=== PATIENT | female | born 1935 | race Caucasian/White ===

== ENCOUNTER → 2018-04-11 11:51 | Outpatient (CLI) | payer MEDICARE, OTHER, SELFPAY ==
[2018-02-02 09:36] VITALS: BMI 35.6
--- NOTE | 2018-04-11 11:58 | RAD_ITS ---
STUDY: X-RAY CHEST REASON FOR EXAM: Female, 82 years old. Cough TECHNIQUE: PA and lateral chest COMPARISON: None. FINDINGS: Prominent features of COPD/emphysema with generalized hyperlucency and hyperinflation, diffuse mild coarsening of the pulmonary interstitium, flattening of the hemidiaphragms and increased AP diameter of the chest. There is no evidence of acute pneumonia. At the left lung apex, there is an oval opacity measuring approximately 2.7 cm. Uncertain significance. The patient is mildly rotated and this may represent projection of normal underlying structures are summation artifact. Normal cardiomediastinal silhouette, yanni and pleural margins. No acute osseous or upper abdominal process. RAD/Chest PA and Lateral IMPRESSION: No acute cardiopulmonary process. COPD/emphysema. Oval opacity measuring 2.7 cm projecting at the left lung apex. This may represent projection of a normal supraclavicular structure due to the patient's rotation. A follow-up AP chest with careful attention to the patient's chest alignment, and proper upright midline position of the head and neck is recommended. Otherwise, a follow-up CT chest may be indicated. Electronically Signed: Jamari Pitts MD at 13:05 EST Tel , Service support ,
== END ==
PROVIDERS: Family Provider Physician Assistant; Visit Provider Physician Assistant
DX: R05 Cough (principal)
CPT/HCPCS: 71046

== ENCOUNTER → 2018-04-11 13:58 | Outpatient (CLI) | payer MEDICARE, OTHER, SELFPAY ==
[2018-04-11 12:02] VITALS: BMI 35.6
--- NOTE | 2018-04-11 14:00 | RAD_ITS ---
STUDY: X-RAY CHEST REASON FOR EXAM: Female, 82 years old. Follow-up AP lordotic view of the chest for reevaluation of the left lung apex, nodular density. TECHNIQUE: AP upright chest, lordotic angulation. COMPARISON: PA and lateral chest performed earlier today. FINDINGS: The patient is kyphotic, and scoliotic in the thoracic spine, and the lordotic projection approximates true frontal projection. Technical quality is satisfactory. The apices are no longer obscured. There is no evidence of nodular density at the left lung apex. There appears to be mild apical scarring. COPD/emphysema. RAD/Chest 1 View IMPRESSION: There is no evidence of apical lung mass. Electronically Signed: Jamari Pitts MD at 15:10 EST Tel , Service support ,
== END ==
PROVIDERS: Family Provider Physician Assistant; Visit Provider Physician Assistant
DX: R05 Cough (principal)
CPT/HCPCS: 71045; 71046

== ENCOUNTER 2018-04-12 17:24 | Inpatient (IN) | payer MEDICARE, OTHER, SELFPAY ==
[2018-04-11 12:02] VITALS: BMI 35.6
[2018-04-12] VITALS (13 sets, daily range): BP systolic 109–189; BP diastolic 68–126; PULSE 93–154; RESP 16–34; TEMP 36.8–37.3; O2SAT 91–98; BMI 27.4; BMI 28.1
--- NOTE | 2018-04-12 18:37 | EKG12_ITS ---
Test Reason : TACHYCARDIA Blood Pressure : / mmHG Vent. Rate : 145 BPM Atrial Rate : 129 BPM P-R Int : 000 ms QRS Dur : 082 ms QT Int : 308 ms P-R-T Axes : 000 037 -37 degrees QTc Int : [address] & T wave abnormality, consider inferior ischemia Abnormal ECG Confirmed by LYNNETTE LI, ROSALIO ([id number]), script editor ELSA SUNSHINE ([id number]) on 04/16/2018 10:41:32 AM Referred By: Constantin Machado Confirmed By:ROSALIO CHURCH MD
--- NOTE | 2018-04-12 18:43 | US_ITS ---
HISTORY: PT HAS A COLD, COUGH AND SOB EXAM/TECHNIQUE: US Venous Duplex LE Bilat Complete: COMPARISON: None. FINDINGS: # of images incl. paperwork: 41 Right lower extremity deep veins are patent with no evidence of DVT. Superficial thrombus is noted in the lower right thigh. Left lower extremity deep veins are patent, negative for DVT. 4.2 x 2.8 x 1.2 cm left popliteal cyst is noted. US/Venous Duplex Imag/Lenny Extrem IMPRESSION: Negative for DVT in both lower extremities. Superficial thrombus in the lower right thigh. 4.2 cm in greatest dimension left popliteal cyst. at 2114 Reported and signed by: Jeffery Gomes MD Electronically Signed: Jeffery Gomes, at 21:13 EST Tel , Service support ,
--- NOTE | 2018-04-12 18:43 | ED.RN ---
NO OLD EKGS IN MUSE
[2018-04-12] MEDS: dilTIAZem 25 MG/5 ML Vial 10 MG IV BOLUS ×2 (18:48→23:03)
--- NOTE | 2018-04-12 18:50 | RAD_ITS ---
HISTORY: COLD SYMPTOMS EXAM: XR Chest 1 View: COMPARISON: 04/11/18 CXR FINDINGS: # of images incl. paperwork: 1 LINES/DEVICES: None. LUNGS: Radiographically clear. No consolidation, edema or effusion. No pneumothorax. Emphysematous changes similar to previous. MEDIASTINUM AND CARDIOVASCULAR STRUCTURES: Cardiac silhouette not enlarged. Right paratracheal opacity similar to previous. BONES AND SOFT TISSUES: Unremarkable. RAD/Chest 1 View (Portable) IMPRESSION: COPD. No radiographic evidence of acute cardiopulmonary disease. Right paratracheal opacity similar to previous, possibly scarring or an enlarged thyroid gland but not definitively evaluated. If not previously interrogated consider nonemergent contrast-enhanced CT chest. at 1930 Reported and signed by: Jeffery Gomes MD Electronically Signed: Jeffery Gomes, at 19:29 EST Tel , Service support ,
[2018-04-12 19:04] LABS: Hematocrit 37.9 % (37-47); Hemoglobin 12.2 g/dl (12.0-15.0); Mean Corp Hgb Conc 32.2 g/gl (32-36); Mean Corpuscular Hgb 29.9 pg (27.0-32.0); Mean Corpuscular Volume 92.9 fL (81-99); Mean Platelet Vol. 9.9 fl (6.2-12.0); Platelet Count 189 K/mm3 (150-450); RBC Distribution Width CV 13.4 % (11.6-14.6); RBC Distribution Width SD 45.4 fl (35.1-43.9); Red Blood Count 4.08 M/mm3 (4.2-5.4); White Blood Count 9.1 K/mm3 (4.4-11.0)
[2018-04-12 19:05] LABS: Scan Indicated on CBC? Y/N NO
[2018-04-12] MEDS: Metoprolol Tartrate 5 MG/5 ML Vial IV (19:13)
--- NOTE | 2018-04-12 19:14 | ED.VISSUMM ---
- ER Visit Summary Date of Service: 04/12/18 Chief Complaint: Cough History of Present Illness: The patient is a 82 F presenting with cough. Patient states this is been ongoing for the past 2 days. She complains of a dry cough. She denies fever. She states she has shortness of breath but this is chronic and no worse than her baseline. She denies chest pain. She went to urgent care yesterday was started on a Z-David. Family states she has been confused and are concerned about UTI. Physical Examination: Vitals are stable. Heart rate 149. Temperature 99. Alert no acute distress. HEENT exam is unremarkable. Neck is supple. Lungs are clear and equal bilaterally. Heart is irregularly irregular Abdomen is soft nontender nondistended. Extremities are unremarkable. Skin is warm and dry. No focal neurologic deficit. Remainder of exam is unremarkable. Emergency Department Course and Treatment: EKG is A. fib with RVR rate of 145. She was given Cardizem with no improvement. She did not take her Lopressor today and was given Lopressor IV. Chest x-ray shows COPD. On reevaluation, heart rate is 110-115. CBC, chemistries unremarkable other than glucose 121, BUN 29, creatinine 1.27. Urinalysis shows 50-100 white blood cells, 3+ bacteria. Troponin is negative. Urine culture was sent. She was given Rocephin IV. Venous Doppler bilateral lower extremity is negative for DVT in both lower extremities. Superficial thrombus in the lower right thigh. 4.2 cm in greatest dimension left popliteal cyst. Discussed with the hospitalist for observation. Disposition: Observation Impression: New onset A. fib with RVR, bronchitis, UTI This note was generated with [employer] dictation software. It may contain incorrect words, spelling, and punctuation that were not noted in review of the chart prior to signing ED Disposition - Plan for ED Patient: Referrals: [facility] Doctor,Out of [Primary Care Provider] -
[2018-04-12 19:32] LABS: Anion Gap 12 (5-15); BUN 29 mg/dL (7-18); BUN/Creat Ratio 22.8 RATIO (10-20); Chloride 100 mmol/L (98-107); Creatinine, Serum 1.27 mg/dL (0.55-1.02); EST Glomerular Filtration Rate 43 mL/min (>60); Est Glom Filt Rate - Afr Amer 52 mL/min (>60); Estimated Creatinine Clearance 33.07 ml/min; Glucose 121 mg/dL (74-106); Potassium 3.6 mmol/L (3.5-5.1); Sodium Level 138 mmol/L (136-145)
--- NOTE | 2018-04-12 20:17 | HP.PCM_ITS ---
Problem List (1) New onset atrial fibrillation Status: Acute (2) Atrial fibrillation with RVR Status: Acute (3) Bronchitis Status: Acute (4) Lung nodule seen on imaging study Status: Chronic History of Present Illness Date of Admission: 04/12/18 Chief Complaint: cough The patient is a 82 year old F with a significant history of HTN; superficial venous clots of the leg for which reason patient was previously on Eliquis; and perennial allergies who presented with progressively worsening cough that started a day before her admission. She has shortness of breath that she thinks is chronic and is from her allergies. Moreover her family reported that patient had chills a day before her presentation. Patient reported that his cough is productive however she is unable to bring up the cough and she ends up swallowing the cough all the time. Outpatient patient was started on Z-David. Her family reported that with the first dose of Z-David patient vomited. She continued a Z-David on the day of admission. At the emergency department patient was found to be in A. fib with RVR for which reason she was given Cardizem bolus. Because the emergency department doctor realized that patient takes metoprolol at home, patient was also given IV push of Lopressor. Her ventricular rate was high as 154. Further, patient had abnormal urinalysis. She reports 1 week history of increased urination. Patient reports that in the past she had stress test done at [facility] after presenting with chest pain which was eventually attributed to shingles. Past Medical History Past Medical History (Chronic Problems): Chronic Problems (Last Reviewed 04/13/18 @ 01:46 by Constantin Machado MD) Lung nodule seen on imaging study (Chronic) Medical History: Medical History (Last Reviewed 04/13/18 @ 01:46 by Constantin Machado MD) Arm fracture S42.309A Basal cell carcinoma C44.91 Blood clot in vein I82.90 Fatigue R53.83 Fracture, rib S22.39XA Shortness of breath R06.02 Hypertension I10 Allergies heparin Allergy (Verified 04/12/18 17:28) Unknown Home Medications: Ambulatory Orders Medication Instructions Recorded amlodipine 5 mg tablet 5 mg PO DAILY 02/02/18 benazepril 20 mg tablet 40 mg PO DAILY 02/02/18 hydrochlorothiazide 25 mg tablet 12.5 mg PO DAILY 11/30/18 montelukast 10 mg tablet 10 mg PO QPM 02/02/18 zoledronic acid 5 mg/100 mL in 5 mg .ROUTE UD ml 02/02/18 mannitol 5 %-water intravenous piggybck Acetaminophen [Tylenol Extra 1,000 mg PO Q6H PRN PRN 04/12/18 Strength] Aspirin E.C. [Ecotrin] 81 mg PO DAILY@0800 04/12/18 Calcium Carbonate/Vitamin D3 1 tab PO BID 04/12/18 [Caltrate 600 Plus D3 Tablet] Metoprolol Tartrate [Lopressor 100 mg PO BID 04/12/18 (beta mayito)] Surgical History: tonsillectomy, - - 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 Also she had vein stripping Lives: With Family Smoking Status: Never smoker Alcohol: Occasional - *Family History Paternal Family History: Family History (Last Updated 04/13/18 @ 02:05 by Constantin Machado MD) Father Cancer Review of Systems Constitutional: Reports: Anorexia, Chills, Malaise. Denies: Fever, Weight Change HEENT: Denies: Head Aches, Sinus Congestion, Sinus Drainage Cardiovascular: Denies: Chest Pain, Palpitations Respiratory: Reports: Cough, Shortness of Breath, Sputum production Gastrointestinal: Reports: Vomiting. Denies: Abdominal Pain Genitourinary: Reports: Frequency. Denies: Dysuria Musculoskeletal: Denies: Joint Pain, Joint Tenderness Skin: Denies: Rash, Wounds Neurological: Denies: Numbness, Tingling, Focal weakness Psychiatric: Denies: Anxiety, Depression, Homicidal Ideations, Suicidal Ideations Hematologic/ Lymphatic: Denies: Easy Bruising, Easy Bleeding VTE Information - Inpt Only VTE Present on Admission: No VTE Mechan Device Prophylaxis: None VTE Pharm Prophylaxis ordered?: No Reason prophylaxis not ordered:: Treatment Not Indicated - Started on Eliquis for A. fib Patient Problems: Active and Suspected Problems (Last Reviewed 04/13/18 @ 01:46 by Constantin Machado MD) New onset atrial fibrillation (Acute) Atrial fibrillation with RVR (Acute) - Physical Exam General: Alert, Oriented x3, Cooperative HEENT: Atraumatic, PERRLA, EOMI, Normocephalic Neck: Supple, No JVD Lungs: Clear to auscultation, Normal air movement Cardiovascular: No murmurs, Irregular Rate, Tachycardic Abdomen: Bowel Sounds Present, Soft, Non Tender Extremities: No edema, Capillary Refill Less than 3 Seconds Skin: No rashes, No breakdown Musculoskeletal: No Tenderness to Palpation of Joints or Extremities Neurological: Neuro grossly intact Psych/Mental Status: Normal Affect, Appropriate Vital Signs Temp Pulse Resp BP Pulse Ox 99.1 F 154 H 20 H 140/126 H 93 04/12/18 19:00 04/12/18 19:13 04/12/18 19:00 04/12/18 19:00 04/12/18 19:00 Oxygen Flow Rate (L/min) 2 Oxygen Delivery Method Nasal Cannula Weight: 77.111 kg Body Mass Index (BMI) 27.4 Laboratory Tests Past 24 Hrs 04/12/18 04/12/18 17:55 17:55 WBC 9.1 RBC 4.08 L Hgb 12.2 Hct 37.9 MCV 92.9 MCH 29.9 MCHC 32.2 RDW 13.4 RDW Differential 45.4 H Plt Count 189 MPV 9.9 Sodium 138 Potassium 3.6 Chloride 100 Carbon Dioxide 26.0 Anion Gap 12 BUN 29 H Creatinine 1.27 H Estim Creat Clear Calc 33.07 Est GFR (MDRD) Af Amer 52 L Est GFR (MDRD) Non-Af 43 L BUN/Creatinine Ratio 22.8 H Glucose 121 H Calcium 9.0 Troponin I < 0.015 Assessment/Plan All Active Problems (Last Reviewed 04/13/18 @ 01:46 by Constantin Machado MD) New onset atrial fibrillation (Acute) Atrial fibrillation with RVR (Acute) Bronchitis (Acute) URI (upper respiratory infection) (Acute) The patient is a 82 year old F with a significant history of HTN; superficial venous clots of the leg for which reason patient was previously on Eliquis; and allergies who presented because of progressively worsening cough; and also with 1 week history of increased frequency of urination and found to be in A. fib with RVR; and with abnormal urinalysis consistent with new onset A. fib with RVR and probable cystitis as well as acute bronchitis.; A. fib with RVR Received Cardizem bolus and Lopressor IV push at emergency departments but her ventricular rate remained above 130. Will initiate another Cardizem 10 mg bolus and start her on Cardizem drip to maintain heart rate between 80-100; and to hold if systolic blood pressure is less than 100. We will obtain a TSH and magnesium level. Echocardiogram ordered. [id number] = at least 4 (positive for age more than 75; female; hypertension) Patient is allergic to heparin. We will start patient on Eliquis. Case management consult to check on eligibility of Eliquis upon discharge. Trend troponin Since there is new onset A. fib will consult cardiology to optimize management. Acute Bronchitis Because of associated reported chills we will continue patient on azithromycin. Also patient received ceftriaxone at emergency department. We will continue ceftriaxone for UTI and is to help with her bronchitis. Will obtain a respiratory pathogen panel. Acute cystitis Her urinalysis was positive for increased protein; ketones; occult blood; nitrite; leukocyte esterase; and bacteria. However she had squamous epithelial cells. She reports increased frequency of urination. Patient received ceftriaxone at emergency department. Ceftriaxone continued. Hypertension On presentation her blood pressure was severely uncontrolled. Hydrochlorothiazide; metoprolol and amlodipine continued Cardizem drip A. fib which should also help with blood pressure control Trend blood pressures and adjust blood pressure medication. Probable CKD stage III. Elevated creatinine of 1.27 on admission. No old records to compare with. With her age this could be CKD. Trend BMP. Perennial Allergies: Singulair continued. DVT prophylaxis: Not indicated as patient has been started on Eliquis. Code Visit OBSV E&M: 27240 Initial observation care L3
[2018-04-12 20:21] LABS: Mucous, Urine 0 SEEN /hpf (<or=2+)
[2018-04-12 20:44] LABS: Color, Urine Yellow (Yellow); Glucose, Dipstick Normal (Normal); Ketone-Dipstick 50 mg/dl (Negative); Leukocyte Esterase-Dipstick 500 /ul (Negative); Nitrite-Dipstick Positive (Negative); Occult Blood-Urine 150 /ul (Negative); Protein-Dipstick 30 mg/dl (Negative); Urine Bilirubin Dipstick Negative (Negative); Urine Clarity Cloudy (Clear); Urine Urobilinogen Normal (Normal)
[2018-04-12 20:48] LABS: Hyaline Cast 0-5 SEEN /lpf (0-5)
[2018-04-12 20:50] LABS: Bacteria 3+ /hpf (None Seen); Squamous Epithelial Cells - UA 5-10 SEEN /hpf (5-10); Transitional Epithelial - Ur 0-5 SEEN /hpf (0-5); White Blood Cells 50-100 SEEN /hpf (0-5)
[2018-04-12 20:53] LABS: Red Blood Cells-Urine 0-5 SEEN /hpf (0-5)
[2018-04-12] MEDS: Ceftriaxone 1 GM/50 ML BAG IV (22:03)
--- NOTE | 2018-04-12 22:23 | ECHOD_ITS ---
Reason For Study: Afib, Aflutter Procedure This was a 2D Doppler, Color Flow transthoracic echocardiogram. Exam performed portable in patient room. Left Ventricle Normal LV size. Left ventricular systolic function is normal. The estimated ejection fraction is 55 %. No regional wall motion abnormalities noted. Right Ventricle Normal RV size. Normal systolic function. Atria Normal left atrium. Normal right atrium. Mitral Valve Normal mitral valve. Tricuspid Valve Normal tricuspid valve. Mild (1+) tricuspid valve insufficiency. Pulmonary artery systolic pressure is 38 mmHg. Aortic Valve Normal aortic valve. Pulmonic Valve The pulmonic valve is not well visualized. Great Vessels Normal aortic root. The pulmonary artery is normal size. Normal inferior vena cava. Pericardium/Pleural No pericardial effusion. MMode/2D Measurements & Calculations LVIDd: 4.1 cm IVSd: 1.00 cm Ao root diam: 3.3 cm LVIDs: 2.5 cm LVPWd: 0.84 cm FS: 39.8 % LAV(MOD-bp): 26.7 ml LVAd ap4: 19.5 cm2 SV(MOD-sp4): 33.7 ml LAV(MOD-bp) Indexed: 14.3 ml/m2 EDV(MOD-sp4): 44.0 ml LAV(MOD-sp2): 26.9 ml EDV(sp4-el): 46.0 ml LAV(MOD-sp4): 24.2 ml LVAs ap4: 7.4 cm2 ESV(MOD-sp4): 10.2 ml ESV(sp4-el): 9.5 ml EF(MOD-sp4): 76.7 % EF(sp4-el): 79.3 % SV(sp4-el): 36.5 ml LA A4 area: 10.7 cm2 LA dimension(2D): 3.4 cm RA A4 area: 10.9 cm2 Doppler Measurements & Calculations MV E max cecile: 104.9 cm/sec MV V2 max: 168.4 cm/sec Ao V2 max: 140.3 cm/sec MV max P.4 mmHg Ao max P.9 mmHg MV V2 mean: 87.1 cm/sec Ao V2 mean: 111.1 cm/sec MV mean P.9 mmHg Ao mean P.3 mmHg MV V2 VTI: 33.3 cm Ao V2 VTI: 29.5 cm LV V1 max: 120.8 cm/sec PA V2 max: 102.4 cm/sec TR max cecile: 291.9 cm/sec LV V1 max P.8 mmHg TR max P.1 mmHg Interpretation Summary Mild (1+) tricuspid valve insufficiency. Pulmonary artery systolic pressure is 38 mmHg. Normal LV size. Left ventricular systolic function is normal. The estimated ejection fraction is 55 %. Ordering Physician: Constantin Machado Referring Physician: Out of Town Doctor Performed By: Laverne Simpson, KIMBERLI, RVT
[2018-04-12] MEDS: APIXABAN 5 MG TABLET PO (23:03)
[2018-04-12 23:15] LABS: Magnesium 1.8 mg/dL (1.6-2.6); Thyroid Stim Hormone (TSH) 1.62 uIU/mL (0.358-3.74)
[2018-04-12] MEDS: 0.9% NaCl Peripheral Flush Adult/Peds IV (23:20)
--- NOTE | 2018-04-12 23:53 | NURSING ---
No A-Fib zone sheets available to give to patient. superannuation clerk aware
[2018-04-13] VITALS (35 sets, daily range): BP systolic 100–129; BP diastolic 45–99; PULSE 61–128; RESP 16–34; TEMP 36.4–36.9; O2SAT 88–97
[2018-04-13 05:04] LABS: Anion Gap 12 (5-15); BUN 25 mg/dL (7-18); BUN/Creat Ratio 22.7 RATIO (10-20); Calcium,Total 8.2 mg/dL (8.5-10.1); Chloride 102 mmol/L (98-107); EST Glomerular Filtration Rate 51 mL/min (>60); Est Glom Filt Rate - Afr Amer 61 mL/min (>60); Estimated Creatinine Clearance 38.19 ml/min; Glucose 102 mg/dL (74-106); Potassium 3.5 mmol/L (3.5-5.1); Sodium Level 139 mmol/L (136-145)
--- NOTE | 2018-04-13 08:25 | PCM.PROGNOTE ---
Patient Problems: Active and Suspected Problems (Last Reviewed 04/13/18 @ 01:46 by Constantin Machado MD) New onset atrial fibrillation (Acute) Atrial fibrillation with RVR (Acute) Subjective: Chief complaint: Follow-up after admission for new onset A. fib with RVR, acute bronchitis probably viral as well as acute cystitis. Patient seen and examined. No acute events overnight. She is still complaining of cough with minimal sputum. Breathing is getting better. Denies chest pain or palpitation. Denies fever or chills. Later this morning, patient converted back to sinus rhythm, heart rate has been in the 60s. Pulse ox is 95% on 3 L. - Physical Exam General: Alert, Oriented x3, Cooperative, - - Minimally short of breath. HEENT: Atraumatic, PERRLA, EOMI, Normocephalic Oral: Moist Mucosa, No Gingival or Mucosal Lesions/ Ulcerations Neck: Supple, No JVD, Negative Carotid Bruits, Trachea Midline, Thyroid Normal Size and Texture Lungs: No wheeze, No rales, Diminished, Rhonchi, Short of Breath Cardiovascular: Normal S1, Normal S2, No murmurs, PMI Normal, Irregular Rate, Tachycardic Abdomen: Bowel Sounds Present, Soft, Non Tender, Non-Distended Extremities: No clubbing, No cyanosis, No edema Skin: No rashes, No breakdown Lymphatic: No Cervical, Supraclavicular, or Inguinal Adenopathy Neurological: Cranial nerves II-XII grossly intact, Motor Exam 5/5 strength throughout Psych/Mental Status: Normal Affect, Appropriate, Alert and oriented to time, place, person, mood and affect Vital Signs Temp Pulse Resp BP Pulse Ox 98.1 F 104 H 26 H 109/79 94 04/13/18 08:00 04/13/18 08:00 04/13/18 08:00 04/13/18 08:00 04/13/18 08:00 Oxygen Flow Rate (L/min) 3 Oxygen Delivery Method Nasal Cannula Weight: 174 lb 6.17 oz Body Mass Index (BMI) 28.1 Intake and Output for Last 24 Hours 04/11/18 04/12/18 04/13/18 23:59 23:59 23:59 Intake Total 768.9 / 768.9 Balance 768.9 / 768.9 Laboratory Tests Past 24 Hrs 04/12/18 04/12/18 04/12/18 17:55 17:55 20:05 WBC 9.1 RBC 4.08 L Hgb 12.2 Hct 37.9 MCV 92.9 MCH 29.9 MCHC 32.2 RDW 13.4 RDW Differential 45.4 H Plt Count 189 MPV 9.9 Sodium 138 Potassium 3.6 Chloride 100 Carbon Dioxide 26.0 Anion Gap 12 BUN 29 H Creatinine 1.27 H Estim Creat Clear Calc 33.07 Est GFR (MDRD) Af Amer 52 L Est GFR (MDRD) Non-Af 43 L BUN/Creatinine Ratio 22.8 H Glucose 121 H Calcium 9.0 Magnesium Troponin I < 0.015 TSH Urine Color Yellow Urine Clarity Cloudy Urine pH 5.0 Ur Specific [place] 1.020 Urine Protein 30 H Urine Glucose (UA) Normal Urine Ketones 50 H Urine Occult Blood 150 H Urine Nitrite Positive H Urine Bilirubin Negative Urine Urobilinogen Normal Ur Leukocyte Esterase 500 H Urine RBC 0-5 SEEN Urine WBC 50-100 SEEN Ur Squamous Epith Cells 5-10 SEEN Ur Transition Epith Cell 0-5 SEEN Urine Bacteria 3+ Hyaline Casts 0-5 SEEN Urine Mucus 0 SEEN 04/12/18 04/13/18 04/13/18 22:34 01:10 04:34 WBC RBC Hgb Hct MCV MCH MCHC RDW RDW Differential Plt Count MPV Sodium 139 Potassium 3.5 Chloride 102 Carbon Dioxide 25.0 Anion Gap 12 BUN 25 H Creatinine 1.10 H Estim Creat Clear Calc 38.19 Est GFR (MDRD) Af Amer 61 Est GFR (MDRD) Non-Af 51 L BUN/Creatinine Ratio 22.7 H Glucose 102 Calcium 8.2 L Magnesium 1.8 Troponin I < 0.015 < 0.015 < 0.015 TSH 1.62 Urine Color Urine Clarity Urine pH Ur Specific [place] Urine Protein Urine Glucose (UA) Urine Ketones Urine Occult Blood Urine Nitrite Urine Bilirubin Urine Urobilinogen Ur Leukocyte Esterase Urine RBC Urine WBC Ur Squamous Epith Cells Ur Transition Epith Cell Urine Bacteria Hyaline Casts Urine Mucus Medical Necessity - Tobacco Use Smoking Status: Never smoker Assessment/Plan All Active Problems (Last Reviewed 04/13/18 @ 01:46 by Constantin Machado MD) New onset atrial fibrillation (Acute) Atrial fibrillation with RVR (Acute) Bronchitis (Acute) URI (upper respiratory infection) (Acute) This is an 82 years old female patient presented to the emergency room because of cough and shortness of breath and she was found to have new onset A. fib with RVR, acute bronchitis as well as acute cystitis. #1 new onset A. fib with RVR: Patient was on IV Cardizem drip. Later this morning, she converted back to sinus rhythm, heart rate has been in the 60s. Blood pressure stable. Serum alk phos are normal. TSH was normal. Troponin was negative. 2D echocardiogram revealed ejection fraction of 55%, normal LV size, pulmonary artery pressure is 38. She is on metoprolol for rate control, IV Cardizem drip discontinued. She is on Eliquis for anticoagulation. Plan to continue same treatment. #2 acute bronchitis: Chest x-ray reviewed, no acute infiltrate. At this time, pneumonia is unlikely. She is on empiric Zithromax and Rocephin. Respiratory panel for viruses negative. Plan to continue albuterol every 4 hours, incentive spirometer, continue empiric Zithromax and Rocephin, wean off oxygen as tolerated. #3 acute cystitis: She is on IV Rocephin, urine culture is pending. She has been afebrile, no leukocytosis. #4 hypertension: Blood pressure stable, continue Norvasc, HCTZ, lisinopril and metoprolol. #5 probable stage III chronic kidney disease: Unknown baseline kidney function. Admission creatinine was 1.27, GFR was 43, today's creatinine is down to 1.10 and GFR is 51 improved. #6 DVT prophylaxis: Continue Eliquis. This note was generated with [employer] dictation software. It may contain incorrect words, spelling, and punctuation that were not noted in checking the note before signing. Code Visit Inpatient E&M: 27272 Subs Hosp L2
[2018-04-13] MEDS: APIXABAN 5 MG TABLET PO ×2 (08:32→21:07)
[2018-04-13] MEDS: hydroCHLOROthiazide 12.5mg 12.5 MG PO (08:32)
[2018-04-13] MEDS: Calcium Carb/Vitamin D 1 TABLET Tablet PO (08:32)
[2018-04-13] MEDS: Metoprolol Tartrate 100 MG Tablet PO ×2 (08:32→21:07)
[2018-04-13] MEDS: Azithromycin 250 MG Tablet 500 MG PO (08:32)
[2018-04-13] MEDS: Aspirin E.C. 81 MG Tablet PO (08:32)
[2018-04-13] MEDS: amLODIPine 5 MG Tablet PO (08:33)
[2018-04-13] MEDS: Lisinopril 40 MG Tablet PO (08:33)
[2018-04-13] MEDS: Albuterol 2.5 MG/3 ML VIAL.NEB. INHALATION ×3 (10:19→18:56)
--- NOTE | 2018-04-13 13:11 | CASEMGMT ---
LYN GUEVARA assessment: Face to Face with patient for initial transition planning/care coordination assessment. LYN GUEVARA introduced self and role at [facility], pt voices understanding and consents to assessment at this time. Pt is sitting up in chair in no distress at this time. Pt is A/Ox4 at this time and answers all questions appropriately at this time. Care providers, pharmacy, and demographics verified at this time. PCP: Lukasz Giron Specialists: Pt states currently has no specialists. Preferred Pharmacy: [facility] Insurance: [facility] A/B, AARP Prescription Benefit: AARP Living Will/HPOA: Pt states that she does have LW/HPOA but she is aware that they are not on file at [facility] at this time. Pt states that her son, Javier Sanabria, is HPOA. LNOK: Javier Sanabria, son Living Arrangements: Pt states she is currently living with her son for the winter in a 1 story home and states no concerns at home at this time. Pt states she is independent with ADL's at this time. Transportation: Pt states that she drives self and states no transportation concerns at this time. DME/HHC: Pt states that she has no current DME or need for any at this time. Pt states no hx of HHC or SNF in the past. Pt states no concerns with going home with son at time of discharge. Pt is retired. Pt states does not smoke but does drink occasionally, socially. Pt states no further concerns/needs at this time. CM to follow for any further discharge planning/needs. Advised pt to ask for CM if any further questions/concerns/needs arise, voices understanding. Plan: [place] LYN GUEVARA
[2018-04-13] MEDS: Montelukast 10 MG Tablet PO (21:07)
[2018-04-13] MEDS: Ceftriaxone 1 GM/50 ML BAG IV (21:28)
[2018-04-13] MEDS: 0.9% NaCl Peripheral Flush Adult/Peds IV (21:32)
[2018-04-14] VITALS (38 sets, daily range): BP systolic 96–128; BP diastolic 57–81; PULSE 68–120; RESP 16–34; TEMP 36.6–36.9; O2SAT 90–96
--- NOTE | 2018-04-14 05:59 | EKG12_ITS ---
Test Reason : A-FIB Blood Pressure : / mmHG Vent. Rate : 105 BPM Atrial Rate : 159 BPM P-R Int : 000 ms QRS Dur : 082 ms QT Int : 342 ms P-R-T Axes : 000 011 -25 degrees QTc Int : 452 ms Atrial fibrillation with rapid ventricular response Nonspecific T wave abnormality Abnormal ECG Confirmed by LYNNETTE LI, ROSALIO ([id number]), news videotape editor ELSA SUNSHINE ([id number]) on 04/19/2018 9:15:52 AM Referred By: Constantin Machado Confirmed By:ROSALIO CHURCH MD
[2018-04-14] MEDS: 0.9% NaCl Peripheral Flush Adult/Peds IV ×3 (06:38→18:44)
[2018-04-14] MEDS: Metoprolol Tartrate 5 MG/5 ML Vial IV (06:38)
[2018-04-14] MEDS: Albuterol 2.5 MG/3 ML VIAL.NEB. INHALATION ×5 (07:18→23:23)
--- NOTE | 2018-04-14 08:18 | PN_ITS ---
Patient Problems: Active and Suspected Problems (Last Reviewed 04/13/18 @ 01:46 by Constantin Machado MD) New onset atrial fibrillation (Acute) Atrial fibrillation with RVR (Acute) Subjective: Chief complaint: Follow-up after admission for new onset A. fib with RVR, acute bronchitis probably viral as well as acute cystitis. Patient seen and examined. No acute events overnight. Patient is feeling better, breathing is getting better, still having a dry cough. Denies chest pain or palpitation, denies dizziness or lightheadedness. Yesterday, she converted back to sinus rhythm but overnight, she returned back to A. fib with RVR. At this time, she has been afebrile, heart rate has been around 110, blood pressure stable, pulse ox is 93% on room air. - Physical Exam General: Alert, Oriented x3, Cooperative, No apparent distress HEENT: Atraumatic, PERRLA, EOMI, Normocephalic Oral: Moist Mucosa, No Gingival or Mucosal Lesions/ Ulcerations Neck: Supple, No JVD, Negative Carotid Bruits, Trachea Midline, Thyroid Normal Size and Texture Lungs: No wheeze, No rales, Diminished, Rhonchi Cardiovascular: Normal S1, Normal S2, No murmurs, PMI Normal, Irregular Rate, Tachycardic Abdomen: Bowel Sounds Present, Soft, Non Tender, Non-Distended, No Hepato- splenomegaly Extremities: No clubbing, No cyanosis, No edema Skin: No rashes, No breakdown Lymphatic: No Cervical, Supraclavicular, or Inguinal Adenopathy Neurological: Cranial nerves II-XII grossly intact, Neuro grossly intact Psych/Mental Status: Normal Affect, Appropriate, Alert and oriented to time, place, person, mood and affect Vital Signs Temp Pulse Resp BP Pulse Ox 98.3 F 111 H 18 128/72 H 93 04/14/18 03:00 04/14/18 06:38 04/14/18 03:00 04/14/18 06:38 04/14/18 03:00 Oxygen Flow Rate (L/min) 3 Oxygen Delivery Method Room Air Weight: 174 lb 2.643 oz Body Mass Index (BMI) 28.1 Intake and Output for Last 24 Hours 04/12/18 04/13/18 04/14/18 23:59 23:59 23:59 Intake Total 120 / 120 Balance 120 / 120 Microbiology Past 72 Hours 04/12/18 20:05 Urine Culture - Preliminary Urine, Clean Catch Gram negative david 04/13/18 05:30 Respiratory Panel (PCR) - Final Mucosa - Nasopharyngeal Medical Necessity - Tobacco Use Smoking Status: Never smoker Assessment/Plan All Active Problems (Last Reviewed 04/13/18 @ 01:46 by Constantin Machado MD) New onset atrial fibrillation (Acute) Atrial fibrillation with RVR (Acute) Bronchitis (Acute) URI (upper respiratory infection) (Acute) This is an 82 years old female patient presented to the emergency room because of cough and shortness of breath and she was found to have new onset A. fib with RVR, acute bronchitis as well as acute cystitis. #1 new onset A. fib with RVR: Returning back to sinus rhythm yesterday afternoon, IV Cardizem drip discontinued yesterday but today, she is back into A. fib with RVR. Other vital signs are stable, afebrile. Serum electrolytes are within normal limits. TSH was normal. Troponin was negative. 2D echocardiogram revealed ejection fraction of 55%, normal LV size, pulmonary artery pressure is 38. She is on metoprolol for rate control and on Eliquis for anticoagulation. Plan: Restart IV Cardizem drip, cardiology consult. #2 acute bronchitis: She is on empiric Zithromax and Rocephin. Symptoms improved, pulse ox is maintained on room air. Respiratory panel for viruses negative. continue albuterol every 4 hours, incentive spirometer, continue empiric Zithromax and Rocephin, wean off oxygen as tolerated. #3 acute cystitis: She is on IV Rocephin, urine culture revealed gram-negative rods, final is pending. She has been afebrile, no leukocytosis. #4 hypertension: Blood pressure stable, continue Norvasc, HCTZ, lisinopril and metoprolol. #5 probable stage III chronic kidney disease: Unknown baseline kidney function. Admission creatinine was 1.27, GFR was 43, yesterday's creatinine is down to 1.10 and GFR is 51, improved. #6 DVT prophylaxis: Continue Eliquis. This note was generated with [employer] software. It may contain incorrect words, spelling, and punctuation that were not noted in checking the note before signing. Code Visit Inpatient E&M: 88586 Subs Hosp L2
[2018-04-14] MEDS: Calcium Carb/Vitamin D 1 TABLET Tablet PO (09:29)
[2018-04-14] MEDS: APIXABAN 5 MG TABLET PO ×2 (09:29→21:09)
[2018-04-14] MEDS: hydroCHLOROthiazide 12.5mg 12.5 MG PO (09:29)
[2018-04-14] MEDS: Aspirin E.C. 81 MG Tablet PO (09:29)
[2018-04-14] MEDS: Metoprolol Tartrate 100 MG Tablet PO ×2 (09:29→21:09)
[2018-04-14] MEDS: amLODIPine 5 MG Tablet PO (09:29)
[2018-04-14] MEDS: Azithromycin 250 MG Tablet 500 MG PO (09:30)
--- NOTE | 2018-04-14 09:52 | CASEMGMT ---
SW spoke w/pt about LW/POA, pt states has the forms, they are on file at [facility] as pt normally goes there. Pt states she thinks her son has copies. SW asked pt if she is here again to bring them in and we can put them on file. Pt states understanding. YANIRA Cortes, [employer]
--- NOTE | 2018-04-14 11:38 | PCM.CONS.C ---
Reason for Consult Date of Consultation: 04/14/18 History of Present Illness: The patient is a 82 year old F with past medical history significant for hypertension. She has been admitted to the hospital with acute bronchitis and cystitis. She was also noted to have atrial fibrillation with rapid ventricular response on admission. She was treated with a diltiazem infusion and he subsequently converted spontaneously. However the atrial fibrillation recurred this morning. We have been asked for evaluation and management. Patient denies any previous cardiac history. Denies any history of palpitations. No chest pains or shortness of breath either at rest or with exertion. No orthopnea proximal nocturnal dyspnea. Denies any ankle edema. No history of syncope or presyncope. Denies any history of CVA or TIA. Patient denies any history of bleeding disorders. 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 She did not have any issues with the anticoagulation. [] Past Medical History Allergies/Adverse Reactions: Allergies heparin Allergy (Verified 04/12/18 22:43) Rash Home Medications: Ambulatory Orders Medication Instructions Recorded amlodipine 5 mg tablet 5 mg PO DAILY 02/02/18 benazepril 20 mg tablet 40 mg PO DAILY 02/02/18 hydrochlorothiazide 25 mg tablet 12.5 mg PO DAILY 02/02/18 montelukast 10 mg tablet 10 mg PO QPM 02/02/18 zoledronic acid 5 mg/100 mL in 5 mg .ROUTE UD ml 02/02/18 mannitol 5 %-water intravenous piggybck Acetaminophen [Tylenol Extra 1,000 mg PO Q6H PRN PRN 04/12/18 Strength] Aspirin E.C. 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 Also she had vein stripping - *Family History Paternal Family History: Family History (Last Updated 04/13/18 @ 02:05 by Constantin Machado MD) Father Cancer Lives: With Family Smoking Status: Never smoker Alcohol: Occasional Review of Systems - Review of Systems HEENT: Denies: Head Aches Cardiovascular: Denies: Chest Discomfort, Chest Discomfort with Exertion, Shortness of Breath at Rest, Shortness of Breath with Exertion, Orthopnea, PND, Peripheral Edema, Palpitations, Lightheadedness, Dizziness, Near Syncope, Syncope Gastrointestinal: Denies: Abdominal Discomfort, Jaundice, Nausea, Hematemesis, Melena Neurological: Denies: History of TIA, History of CVA Psychiatric: Denies: Anxiety, Depression Endocrine: Denies: Heat Intolerance, Cold Intolerance Hematologic/ Lymphatic: Denies: Easy Brusing, Easy Bleeding Subjectve: Comfortable. No apparent distress. Objective: Vital Signs Temp Pulse Resp BP Pulse Ox 98.2 F 100 20 H 112/66 92 04/14/18 11:17 04/14/18 11:17 04/14/18 11:17 04/14/18 11:17 04/14/18 11:17 Oxygen Flow Rate (L/min) 3 Oxygen Delivery Method Room Air Weight: 79 kg Body Mass Index (BMI) 28.1 Intake and Output for Last 24 Hours 04/12/18 04/13/18 04/14/18 23:59 23:59 23:59 Intake Total 120 / 120 Balance 120 / 120 General: Healthy Appearing, Awake, Alert, Oriented x 3, No Acute Distress Neck: Supple, No JVD Lungs: Clear to auscultation Cardiovascular: Normal S1, Normal S2 Abdomen: Bowel Sounds Present, Soft Extremities: No edema Neurological: No Focal Motor or Sensory Deficit Psych/Mental Status: Appropriate Rhythm: Atrial fibrillation with rapid ventricular response EKG: Atrial fibrillation. ECHO: Normal LV systolic function. Stress Test: Cardiac Cath: PCI: CT Surgery: Holter monitor: EPS: PPM: CXR: Chest CT Scan: Assessment/Plan 1. New onset atrial fibrillation. Patient has a high CHAD1-Vasc score. Agree with anticoagulation. Discussed with patient. Risks benefits explained. She understands these and agrees with the plan. Continue diltiazem for rate control. Switch to p.o. when rate control is achieved. Stop amlodipine 2. Bronchitis. 3. Cystitis. 4. Hypertension. Stop amlodipine. Patient is started on diltiazem.
[2018-04-14] MEDS: Lisinopril 40 MG Tablet PO (12:04)
[2018-04-14] MEDS: Ceftriaxone 1 GM/50 ML BAG IV (21:09)
[2018-04-14] MEDS: Montelukast 10 MG Tablet PO (21:09)
[2018-04-15] VITALS (33 sets, daily range): BP systolic 92–131; BP diastolic 55–94; PULSE 65–119; RESP 16–31; TEMP 36.3–36.9; O2SAT 92–99
[2018-04-15] MEDS: Albuterol 2.5 MG/3 ML VIAL.NEB. INHALATION ×5 (02:59→20:00)
[2018-04-15 06:09] LABS: Absolute Neutrophil Count 4.1 X10^3/uL (2.0-7.7); Basophil# 0.02 X10^3/uL; Basophil% 0.3 % (0-1); Eosinophils% 1.5 % (0-5); Hematocrit 35.9 % (37-47); Hemoglobin 11.6 g/dl (12.0-15.0); Lymphocyte % 24.5 % (19-41); Mean Corp Hgb Conc 32.3 g/gl (32-36); Mean Corpuscular Hgb 29.9 pg (27.0-32.0); Mean Corpuscular Volume 92.5 fL (81-99); Mean Platelet Vol. 10.3 fl (6.2-12.0); Monocyte# 0.75 X10^3/uL; Monocyte% 11.5 % (0-10); Neutrophil # 4.05 X10^3/uL (2.7-7.7); Neutrophil % 61.9 % (47-70); Platelet Count 223 K/mm3 (150-450); RBC Distribution Width CV 13.1 % (11.6-14.6); RBC Distribution Width SD 43.3 fl (35.1-43.9); Red Blood Count 3.88 M/mm3 (4.2-5.4); White Blood Count 6.5 K/mm3 (4.4-11.0)
[2018-04-15 06:23] LABS: Anion Gap 11 (5-15); BUN 45 mg/dL (7-18); BUN/Creat Ratio 33.8 RATIO (10-20); Calcium,Total 9.2 mg/dL (8.5-10.1); Chloride 103 mmol/L (98-107); Creatinine, Serum 1.33 mg/dL (0.55-1.02); EST Glomerular Filtration Rate 41 mL/min (>60); Est Glom Filt Rate - Afr Amer 49 mL/min (>60); Estimated Creatinine Clearance 31.58 ml/min; Glucose 116 mg/dL (74-106); POSITIVE COUNT NO; POSITIVE DIFFERENTIAL NO; POSITIVE MORPHOLOGY NO; Potassium 3.4 mmol/L (3.5-5.1); Sodium Level 140 mmol/L (136-145)
[2018-04-15] MEDS: Aspirin E.C. 81 MG Tablet PO (08:18)
[2018-04-15] MEDS: hydroCHLOROthiazide 12.5mg 12.5 MG PO (08:19)
[2018-04-15] MEDS: APIXABAN 5 MG TABLET PO ×2 (08:19→21:01)
[2018-04-15] MEDS: Metoprolol Tartrate 100 MG Tablet PO ×2 (08:20→21:01)
[2018-04-15] MEDS: Azithromycin 250 MG Tablet 500 MG PO (08:20)
[2018-04-15] MEDS: Calcium Carb/Vitamin D 1 TABLET Tablet PO (08:20)
--- NOTE | 2018-04-15 08:41 | PCM.PROGNOTE ---
Patient Problems: Active and Suspected Problems (Last Reviewed 04/13/18 @ 01:46 by Constantin Machado MD) New onset atrial fibrillation (Acute) Atrial fibrillation with RVR (Acute) Subjective: Chief complaint: Follow-up after admission for new onset A. fib with RVR, acute bronchitis probably viral as well as acute cystitis. Patient seen and examined. No acute events overnight. She is feeling better, having less cough. Denied chest pain, shortness of breath or palpitation. She remains in A. fib, heart rate has been around 100 and she remains on IV Cardizem drip. Her other vital signs are stable. - Physical Exam General: Alert, Oriented x3, Cooperative, No apparent distress HEENT: Atraumatic, PERRLA, EOMI, Normocephalic Oral: Moist Mucosa, No Gingival or Mucosal Lesions/ Ulcerations Neck: Supple, No JVD, Negative Carotid Bruits, Trachea Midline, Thyroid Normal Size and Texture Lungs: Clear to auscultation, No rhonchi, No wheeze, No rales, Diminished Cardiovascular: Normal S1, Normal S2, No murmurs, PMI Normal, Irregular Rate, Tachycardic Abdomen: Bowel Sounds Present, Soft, Non Tender, Non-Distended, No Hepato-splenomegaly Extremities: No clubbing, No cyanosis, No edema Skin: No rashes, No breakdown Lymphatic: No Cervical, Supraclavicular, or Inguinal Adenopathy Neurological: Cranial nerves II-XII grossly intact, Neuro grossly intact Psych/Mental Status: Normal Affect, Appropriate, Alert and oriented to time, place, person, mood and affect Vital Signs Temp Pulse Resp BP Pulse Ox 97.9 F 85 16 131/94 H 95 04/15/18 08:00 04/15/18 08:20 04/15/18 08:00 04/15/18 08:00 04/15/18 08:00 Oxygen Flow Rate (L/min) 2 Oxygen Delivery Method Room Air Weight: 174 lb 2.643 oz Body Mass Index (BMI) 28.1 Intake and Output for Last 24 Hours 04/13/18 04/14/18 04/15/18 23:59 23:59 23:59 Intake Total 839.0 / 839.0 543.7 / 543.7 Balance 1976.3 / 1976.3 839.0 / 839.0 543.7 / 543.7 Microbiology Past 72 Hours 04/12/18 20:05 Urine Culture - Final Urine, Clean Catch Escherichia coli 04/13/18 05:30 Respiratory Panel (PCR) - Final Mucosa - Nasopharyngeal Laboratory Tests Past 24 Hrs 04/15/18 04/15/18 05:20 05:20 WBC 6.5 RBC 3.88 L Hgb 11.6 L Hct 35.9 L MCV 92.5 MCH 29.9 MCHC 32.3 RDW 13.1 RDW Differential 43.3 Plt Count 223 MPV 10.3 Immature Gran % (Auto) 0.300 Neut % (Auto) 61.9 Lymph % (Auto) 24.5 [place] % (Auto) 11.5 H Eos % (Auto) 1.5 Baso % (Auto) 0.3 Absolute Neuts (auto) 4.1 Absolute Lymphs (auto) 1.60 Total Counted Not Reportable Sodium 140 Potassium 3.4 L Chloride 103 Carbon Dioxide 26.0 Anion Gap 11 BUN 45 H Creatinine 1.33 H Estim Creat Clear Calc 31.58 Est GFR (MDRD) Af Amer 49 L Est GFR (MDRD) Non-Af 41 L BUN/Creatinine Ratio 33.8 H Glucose 116 H Calcium 9.2 Medical Necessity - Tobacco Use Smoking Status: Never smoker Assessment/Plan All Active Problems (Last Reviewed 04/13/18 @ 01:46 by Constantin Machado MD) New onset atrial fibrillation (Acute) Atrial fibrillation with RVR (Acute) Bronchitis (Acute) URI (upper respiratory infection) (Acute) This is an 82 years old female patient presented to the emergency room because of cough and shortness of breath and she was found to have new onset A. fib with RVR, acute bronchitis as well as acute cystitis. #1 new onset A. fib with RVR: Remains in A. fib with RVR, on IV Cardizem drip, heart rate has been around 100 and reportedly, it was up to 125 upon walking. Other vital signs are stable, afebrile. Serum electrolytes are within normal limits. TSH was normal. Troponin was negative. 2D echocardiogram revealed ejection fraction of 55%, normal LV size, pulmonary artery pressure is 38. She is on metoprolol for rate control and on Eliquis for anticoagulation. Cardiology on the case. Plan to continue same treatment. #2 acute bronchitis: She is on empiric Zithromax and Rocephin. Symptoms improved, pulse ox is maintained on room air. Respiratory panel for viruses negative. Plan to DC IV Rocephin and Zithromax, start oral Levaquin to complete 7 days of treatment. #3 acute cystitis: She is on IV Rocephin, urine culture revealed E. coli, pansensitive. She has been afebrile, no leukocytosis. #4 hypertension: Blood pressure stable, continue Norvasc, HCTZ, lisinopril and metoprolol. #5 probable stage III chronic kidney disease: Unknown baseline kidney function. Admission creatinine was 1.27, GFR was 43, today's creatinine is 1.33, stable at baseline. #6 DVT prophylaxis: Continue Eliquis. This note was generated with [employer] dictation software. It may contain incorrect words, spelling, and punctuation that were not noted in checking the note before signing. Code Visit Inpatient E&M: 74136 Subs Hosp L2
[2018-04-15] MEDS: Lisinopril 40 MG Tablet PO (10:43)
--- NOTE | 2018-04-15 12:15 | PN.CARD_ITS ---
Subjectve: No complaints. Still in atrial fibrillation. However ventricular rate controlled. Objective: Vital Signs Temp Pulse Resp BP Pulse Ox 97.9 F 72 21 H 109/67 96 04/15/18 10:00 04/15/18 11:04 04/15/18 10:00 04/15/18 10:00 04/15/18 10:00 Oxygen Flow Rate (L/min) 2 Oxygen Delivery Method Room Air Weight: 79 kg Body Mass Index (BMI) 28.1 Intake and Output for Last 24 Hours 04/13/18 04/14/18 04/15/18 23:59 23:59 23:59 Intake Total 839.0 / 839.0 543.7 / 543.7 Balance 839.0 / 839.0 543.7 / 543.7 General: Awake, Alert, Oriented x 3 Neck: Supple Lungs: Clear to auscultation Cardiovascular: Irregular Rhythm, Normal S1, Normal S2 Extremities: No edema 04/15/18 05:20: WBC 6.5, RBC 3.88 L, Hgb 11.6 L, Hct 35.9 L, MCV 92.5, MCH 29.9, MCHC 32.3, RDW 13.1, RDW Differential 43.3, Plt Count 223, MPV 10.3, Immature G ran % (Auto) 0.300, Neut % (Auto) 61.9, Lymph % (Auto) 24.5, [place] % (Auto) 11.5 H, Eos % (Auto) 1.5, Baso % (Auto) 0.3, Absolute Neuts (auto) 4.1, Total Counted Not Reportable 04/15/18 05:20: Sodium 140, Potassium 3.4 L, Chloride 103, Carbon Dioxide 26.0, Anion Gap 11, BUN 45 H, Creatinine 1.33 H, Est GFR (MDRD) Af Amer 49 L, Est GFR (MDRD) Non-Af 41 L, BUN/Creatinine Ratio 33.8 H, Glucose 116 H, Calcium 9.2 Rhythm: EKG: ECHO: Stress Test: Cardiac Cath: PCI: CT Surgery: Holter monitor: EPS: PPM: CXR: Chest CT Scan: Medical Necessity - Tobacco Use Smoking Status: Never smoker Assessment/Plan 1. New onset atrial fibrillation. Ventricular rate controlled. Start on diltiazem p.o. Stop diltiazem infusion. Change diltiazem to longer acting formulation in the morning if she could tolerate the dose. 2. Bronchitis. 3. Cystitis. 4. Hypertension. Stop amlodipine. Patient is started on diltiazem.
[2018-04-15] MEDS: dilTIAZem 60 MG Tablet PO (13:45)
[2018-04-15] MEDS: 0.9% NaCl Peripheral Flush Adult/Peds IV (14:57)
--- NOTE | 2018-04-15 15:02 | EKG12_ITS ---
Test Reason : RHYTHM CHANGE Blood Pressure : / mmHG Vent. Rate : 078 BPM Atrial Rate : 078 BPM P-R Int : 182 ms QRS Dur : 084 ms QT Int : 384 ms P-R-T Axes : 040 021 014 degrees QTc Int : 437 ms Normal sinus rhythm Normal ECG When compared with ECG of 14-APR-2018 06:10, MANUAL COMPARISON REQUIRED, DATA IS UNCONFIRMED Confirmed by LYNNETTE LI, ROSALIO ([id number]), story editor ELSA SUNSHINE ([id number]) on 04/19/2018 8:53:06 AM Referred By: Constantin Machado Confirmed By:ROSALIO CHURCH MD
[2018-04-15] MEDS: Amiodarone 200 MG Tablet PO ×2 (17:52→21:00)
[2018-04-15] MEDS: Cephalexin 500 MG Capsule PO (21:00)
[2018-04-15] MEDS: Montelukast 10 MG Tablet PO (21:01)
[2018-04-16] VITALS (10 sets, daily range): BP systolic 101–133; BP diastolic 58–75; PULSE 71–96; RESP 16–18; TEMP 36.6–36.8; O2SAT 92–96
[2018-04-16] MEDS: Albuterol 2.5 MG/3 ML VIAL.NEB. INHALATION ×2 (07:10→10:54)
--- NOTE | 2018-04-16 07:43 | PCM.PN.CARD ---
Subjectve: Patient seen and evaluated. Appears to be doing much better now. Denies any chest pain or palpitations. Objective: Vital Signs Temp Pulse Resp BP Pulse Ox 98.1 F 82 18 101/69 93 04/16/18 02:50 04/16/18 07:10 04/16/18 07:10 04/16/18 02:50 04/16/18 07:33 Oxygen Flow Rate (L/min) 2 Oxygen Delivery Method Room Air Weight: 174 lb 2.643 oz Body Mass Index (BMI) 28.1 Intake and Output for Last 24 Hours 04/14/18 04/15/18 04/16/18 23:59 23:59 23:59 Intake Total 839.0 / 839.0 1224.5 / 1224.5 240 / 240 Balance 839.0 / 839.0 1224.5 / 1224.5 240 / 240 General: Awake, Alert, Oriented x 3 HEENT: PERRL, EOMI, Sclera Non Icteric Neck: Supple, Good ROM, No Lymph Node Enlargement Lungs: Clear to auscultation Cardiovascular: Regular Rhythm, Normal S1, Normal S2, No Murmurs, No Rubs, No Gallops Vascular: No Carotid Bruits, Normal Femoral Pulses, Normal Radial Pulses, Normal Dorsalis Pedal Pulse, Normal Posterior Tibial Pulses Abdomen: Bowel Sounds Present, Soft, Non Tender, No HSM, No Organomegaly Extremities: No Cyanosis, No Clubbing, No edema Musculoskeletal: No Erythema Skin: No Rashes Lymphatic: No Lymph Node Enlargement Neurological: No Focal Motor or Sensory Deficit Psych/Mental Status: Appropriate Rhythm: EKG: ECHO: Stress Test: Cardiac Cath: PCI: CT Surgery: Holter monitor: EPS: PPM: CXR: Chest CT Scan: Medical Necessity - Tobacco Use Smoking Status: Never smoker Assessment/Plan 1. Atrial fibrillation Patient is currently back in sinus rhythm. Echocardiogram demonstrated preserved ejection fraction. The plan will be to continue patient on the beta-mayito and amiodarone and reduce the dose as an outpatient. Patient would also continue anticoagulation. The etiology of the atrial fibrillation is likely secondary to the acute lung infection. Thank you for allowing me to participate in the care of your patient. Please don't hesitate to call if any issues arise
--- NOTE | 2018-04-16 07:47 | PN.CARD_ITS ---
Subjectve: Patient seen and evaluated. Appears to be doing much better now. Denies any chest pain or palpitations. Objective: Vital Signs Temp Pulse Resp BP Pulse Ox 98.1 F 82 18 101/69 93 04/16/18 02:50 04/16/18 07:10 04/16/18 07:10 04/16/18 02:50 04/16/18 07:33 Oxygen Flow Rate (L/min) 2 Oxygen Delivery Method Room Air Weight: 174 lb 2.643 oz Body Mass Index (BMI) 28.1 Intake and Output for Last 24 Hours 04/14/18 04/15/18 04/16/18 23:59 23:59 23:59 Intake Total 839.0 / 839.0 1224.5 / 1224.5 240 / 240 Balance 839.0 / 839.0 1224.5 / 1224.5 240 / 240 General: Awake, Alert, Oriented x 3 HEENT: PERRL, EOMI, Sclera Non Icteric Neck: Supple, Good ROM, No Lymph Node Enlargement Lungs: Clear to auscultation Cardiovascular: Regular Rhythm, Normal S1, Normal S2, No Murmurs, No Rubs, No Gallops Vascular: No Carotid Bruits, Normal Femoral Pulses, Normal Radial Pulses, Normal Dorsalis Pedal Pulse, Normal Posterior Tibial Pulses Abdomen: Bowel Sounds Present, Soft, Non Tender, No HSM, No Organomegaly Extremities: No Cyanosis, No Clubbing, No edema Musculoskeletal: No Erythema Skin: No Rashes Lymphatic: No Lymph Node Enlargement Neurological: No Focal Motor or Sensory Deficit Psych/Mental Status: Appropriate Rhythm: EKG: ECHO: Stress Test: Cardiac Cath: PCI: CT Surgery: Holter monitor: EPS: PPM: CXR: Chest CT Scan: Medical Necessity - Tobacco Use Smoking Status: Never smoker Assessment/Plan 1. Atrial fibrillation * Patient is currently back in sinus rhythm. Echocardiogram demonstrated preserved ejection fraction. * The plan will be to continue patient on the beta-mayito and amiodarone and reduce the dose as an outpatient. * Patient would also continue anticoagulation. * The etiology of the atrial fibrillation is likely secondary to the acute lung infection. * * Thank you for allowing me to participate in the care of your patient. Please don't hesitate to call if any issues arise
[2018-04-16] MEDS: Metoprolol Tartrate 100 MG Tablet PO (08:12)
[2018-04-16] MEDS: Calcium Carb/Vitamin D 1 TABLET Tablet PO (08:12)
[2018-04-16] MEDS: Cephalexin 500 MG Capsule PO (08:12)
[2018-04-16] MEDS: Lisinopril 40 MG Tablet PO (08:12)
[2018-04-16] MEDS: APIXABAN 5 MG TABLET PO (08:12)
[2018-04-16] MEDS: hydroCHLOROthiazide 12.5mg 12.5 MG PO (08:12)
[2018-04-16] MEDS: Amiodarone 200 MG Tablet PO (08:13)
--- NOTE | 2018-04-16 11:23 | DCINST_ITS ---
- Discharge Diagnoses Current Active Problems: Current Active and Chronic Problems (Last Reviewed 04/13/18 @ 01:46 by Constantin Machado MD) New onset atrial fibrillation (Acute) Atrial fibrillation with RVR (Acute) You will use the following diet at home:: Cardiac Your food should be the consistency of: Regular Your liquids should be the consistency of: Regular/Thin Discharge Activity: Return to Normal Activity Weight Bearing Status: Weight bearing as tolerated Call your doctor if you observe: Fever of 101 or Higher, Shortness of breath, Dizziness, Increased palpitations (irregular heartbeat) Instructions: Discharge Instructions for Atrial Fibrillation, What Is Atrial Flutter/Atrial Fibrillation? Additional Instructions: follow up with your PCP for repeat BMP within one week to check potassium level Allergies/Adverse Reactions: Allergies heparin Allergy (Verified 04/12/18 22:43) Rash Medications to take at Discharge benazepril 20 mg tablet 40 mg PO DAILY 02/02/18 hydrochlorothiazide 25 mg tablet 12.5 mg PO DAILY 02/02/18 montelukast 10 mg tablet 10 mg PO QPM 02/02/18 zoledronic acid 5 mg/100 mL in mannitol 5 %-water intravenous piggybck 5 mg .ROUTE UD ml 02/02/18 Acetaminophen [Tylenol] 1,000 mg PO Q6H PRN PRN 04/12/18 Aspirin E.C. [Ecotrin] 81 mg PO DAILY@0800 04/12/18 Calcium Carbonate/Vitamin D3 [Caltrate 600 Plus D3 Tablet] 1 tab PO BID 04/12/18 Metoprolol Tartrate [Lopressor (beta mayito)] 100 mg PO BID 04/12/18 Amiodarone HCl [Cordarone] 200 mg PO BID #60 tablet 04/16/18 Apixaban [Eliquis] 5 mg PO BID #60 tablet 04/16/18 Cephalexin [Keflex] 500 mg PO Q12 #10 capsule 04/16/18 Potassium Chloride [K-Dur] 40 meq PO BIDCM #30 tablet 04/16/18 The following prescriptions were given: Cephalexin [Keflex] 500 mg PO Q12 #10 capsule Amiodarone HCl [Cordarone] 200 mg PO BID #60 tablet Apixaban [Eliquis] 5 mg PO BID #60 tablet Potassium Chloride [K-Dur] 40 meq PO BIDCM #30 tablet Primary Care Physician: [facility] Doctor,Out of [Primary Care Provider] - Please follow up with your Primary Care Physician in: one week Test Results: Test results from this visit will be discussed in further detail at your follow- up appointment, if applicable. Please Follow Up With: Salbador Dominguez MD When: 1 week. please call his office for an appointment Proposed Discharge Date: 04/16/18
--- NOTE | 2018-04-16 11:23 | PCM.DC.SUM ---
Discharge Date and Diagnosis Date of Admission: 04/12/18 Date of Discharge: 04/16/18 - Primary Discharge Diagnosis Active and Suspected Problems (Last Reviewed 04/13/18 @ 01:46 by Constantin Machado MD) New onset atrial fibrillation (Acute) Atrial fibrillation with RVR (Acute) - Secondary Discharge Diagnosis Chronic Problems (Last Reviewed 04/13/18 @ 01:46 by Constantin Machado MD) Lung nodule seen on imaging study (Chronic) Hospital Course and Treatment Imaging Results: Diagnostic Data Venous Duplex 04/12/18 18:43 IMPRESSION: Negative for DVT in both lower extremities. Superficial thrombus in the lower right thigh. 4.2 cm in greatest dimension left popliteal cyst. at 2114 Reported and signed by: Jeffery Gomes MD Electronically Signed: Jeffery Gomes, at 21:13 EST Tel , Service support , Chest X-Ray 04/12/18 18:50 IMPRESSION: COPD. No radiographic evidence of acute cardiopulmonary disease. Right paratracheal opacity similar to previous, possibly scarring or an enlarged thyroid gland but not definitively evaluated. If not previously interrogated consider nonemergent contrast-enhanced CT chest. at 1930 Reported and signed by: Jeffery Gomes MD Electronically Signed: Jeffery Gomes, at 19:29 EST Tel , Service support , cardiology- Dr Dominguez Operations: None Procedures: 2-D Echocardiogram Summary of Care Provided: The patient is a 82 year old F with a significant history of hypertension and superficial lower extremity clots as well as allergies. She was admitted with a complaint of progressively worsening cough and shortness of breath. She had been seen in an urgent care and was started on Z-David for bronchitis. On admission in the ED, she was found to be in A. fib with RVR was given a Cardizem bolus. Heart rate was as high as 154. Of note, patient had a stress test done at [facility] on account of chest pain which was found to be due to shingles. Patient also had frequency of urination and UA was positive for UTI. She was admitted and managed for new onset A. fib with RVR, viral bronchitis and UTI. She was started on Cardizem drip. She was also started on Eliquis prior to discharge. She was also started on Zithromax and Rocephin for acute bronchitis and also for cystitis. Urine culture E. coli. Patient was transitioned to p.o. amiodarone and p.o. metoprolol. Heart rate improved and she converted to sinus rhythm. Respiratory panel was also negative. Patient remained stable and was discharged on 04/16/2018 with a prescription for p.o. amiodarone and p.o. Eliquis. She is also given a prescription for p.o. Keflex for 5 days. She is to follow-up with her primary care doctor and web press operator helper offset. Patient seen and examined prior to discharge. She had no complaints and felt well. She denied any palpitations or dizziness, abdominal pain, chest pain, shortness of breath, diarrhea vomiting. Review of systems otherwise negative. Labs and vitals reviewed. Home medication reviewed on consult. o/e: Vital Signs Height 5 ft 6 in Weight: 174 lb 2.643 oz Weight in Pounds 174.2 lbs Pulse Ox 94 Temperature 98.2 F Pulse Rate 79 Respiratory Rate 16 Blood Pressure [BP] 118/56 Blood Pressure 124/58 Blood Pressure Position [BP] Semi-Fowlers Blood Pressure Position Sitting [] General: Alert, Oriented x3, Cooperative, No apparent distress HEENT: Atraumatic, PERRLA, EOMI, Normocephalic Oral: Moist Mucosa, No Gingival or Mucosal Lesions/ Ulcerations Neck: Supple, No JVD, Negative Carotid Bruits, Lungs: Clear to auscultation, No rhonchi, No wheeze, No rales, Diminished Cardiovascular: Normal S1, Normal S2, No murmurs, PMI Normal, Irregular Rate, Tachycardic Abdomen: Bowel Sounds Present, Soft, Non Tender, Non-Distended, No Hepato-splenomegaly Extremities: No clubbing, No cyanosis, No edema Skin: No rashes, No breakdown Lymphatic: No Cervical, Supraclavicular, or Inguinal Adenopathy Neurological: Cranial nerves II-XII grossly intact, Neuro grossly intact Psych/Mental Status: Normal Affect, Appropriate, Alert and oriented to time, place, person, mood and affect Plan as discussed above. Patient's amlodipine was stopped and she was discharged on lisinopril, HCTZ, metoprolol and amiodarone. Patient also had mild hypokalemia with potassium of 3.4. This was replaced and she was discharged home on p.o. potassium. She is follow-up with her primary care doctor for monitoring of her potassium levels. . She is to follow up with her PCP for monitoring of her BP for meds to be adjusted as needed. She is to follow-up with her web press operator helper offset for adjustment of metoprolol and amiodarone as needed. - Physical Exam Vital Signs Temp Pulse Resp BP Pulse Ox 97.9 F 73 16 133/75 H 96 04/16/18 08:07 04/16/18 11:04 04/16/18 10:54 04/16/18 08:12 04/16/18 08:07 Oxygen Flow Rate (L/min) 2 Oxygen Delivery Method Room Air Weight: 174 lb 2.643 oz Body Mass Index (BMI) 28.1 Intake and Output for Last 24 Hours 04/14/18 04/15/18 04/16/18 23:59 23:59 23:59 Intake Total 839.0 / 839.0 1224.5 / 1224.5 240 / 240 Balance 839.0 / 839.0 1224.5 / 1224.5 240 / 240 Microbiology Past 72 Hours 04/12/18 20:05 Urine Culture - Final Urine, Clean Catch Escherichia coli 04/13/18 05:30 Respiratory Panel (PCR) - Final Mucosa - Nasopharyngeal Discharge Diet: Low fat/ Low Cholesterol Discharge Activity: Return to Normal Activity Weight Bearing Status: Weight bearing as tolerated Call your doctor if you observe: Fever of 101 or Higher, Shortness of breath, Dizziness, Increased palpitations (irregular heartbeat) Home Medications: Medications to take at Discharge benazepril 20 mg tablet 40 mg PO DAILY 02/02/18 hydrochlorothiazide 25 mg tablet 12.5 mg PO DAILY 02/02/18 montelukast 10 mg tablet 10 mg PO QPM 02/02/18 zoledronic acid 5 mg/100 mL in mannitol 5 %-water intravenous piggybck 5 mg .ROUTE UD ml 02/02/18 Acetaminophen [Tylenol] 1,000 mg PO Q6H PRN PRN 04/12/18 Aspirin E.C. [Ecotrin] 81 mg PO DAILY@0800 04/12/18 Calcium Carbonate/Vitamin D3 [Caltrate 600 Plus D3 Tablet] 1 tab PO BID 04/12/18 Metoprolol Tartrate [Lopressor (beta mayito)] 100 mg PO BID 04/12/18 Amiodarone HCl [Cordarone] 200 mg PO BID #60 tablet 04/16/18 Apixaban [Eliquis] 5 mg PO BID #60 tablet 04/16/18 Cephalexin [Keflex] 500 mg PO Q12 #10 capsule 04/16/18 Potassium Chloride [K-Dur] 40 meq PO BIDCM #30 tablet 04/16/18 Following Prescrptions Were Given to Patient: Cephalexin [Keflex] 500 mg PO Q12 #10 capsule Amiodarone HCl [Cordarone] 200 mg PO BID #60 tablet Apixaban [Eliquis] 5 mg PO BID #60 tablet Potassium Chloride [K-Dur] 40 meq PO BIDCM #30 tablet Primary Care Physician: [facility] Doctor,Out of [Primary Care Provider] - Please follow up with your Primary Care Physician in: one week Please Follow Up With: Salbador Dominguez MD When: 1 week. please call his office for an appointment Patient Instructions: What Is Atrial Flutter/Atrial Fibrillation?, Discharge Instructions for Atrial Fibrillation Disposition: Home Minutes spent on discharge:: 38 Patient Condition:: Stable Medical Necessity - Tobacco Use Smoking Status: Never smoker Meaningful Use Info Meaningful Use Diagnoses (Choose all that apply): None applicable Code Visit Inpatient E&M: 41871 Disch Hosp
--- NOTE | 2018-04-16 12:28 | CASEMGMT ---
Addendum entered by Coco Barrientos 04/16/18 14:23: Outpt therapy was ordered for PT/OT. This RN CM received call from Sandy at [facility] and she states that they are not currently during OT outpt. This RN CM placed call to DARBY Leahy, and she states that OT is not needed for pt at this time. Call back to Sandy at [facility] and message left for her that pt can just have order for PT at this time. This RN CM advised her to call this RN CM back with any questions/concerns. SStaten RN CM Original Note: Therapy is recommending Outpt therapy for pt at this time. This RN CM to room to discuss with pt and she is agreeable to same at this time. Pt does request that this RN CM call her granddaughter, Madeleine Saucedo, who is working in the [facility] ED at this time to clarify whether she should go to [facility] for OP rehab or [facility]. Call to Madeleine and she suggests [facility]. Pt updated, voices understanding. Copy of order faxed to [facility] at this time and original to pt with instruction to pt and Madeleine canales, to call [facility] if they have not heard from them in several days, voice understanding and pt provided with contact info at this time. Pt does voice concerns about paying out of pocket for prescriptions when she doesn't send them to mail order. She states 'that blood thinner is $500, they said.' Call to [facility] and per pharmacist, they have no prescription coverage for pt at this time and were just giving pt discounts. Advised them that pt does have coverage thru [employer] and pharmacist then runs a check for MCR D and finds that pt does have MCR D coverage and is now applying to all at this time. Per pharmacist, pt's co-pay for Eliquis is now $47.00 and pt also provided with a 30 day free trial card at this time. Madeleine Canales, updated on all as well, voices understanding. Pt/granddaughter voice no further questions/concerns/needs at this time. Pt was then asking this RN CM about what pills she needs to take tonight. Laverne NICHOLSON aware that she should probably review instructions with Madeleine canales, when she comes up to take pt home, voices understanding. Cristina NICHOLSON CM
== END 2018-04-16 13:25 | disposition home or self-care (01) | DRG 309 ==
LOC: ED 18:48 → PCU 21:44
PROVIDERS: Hospitalist; Admitting Provider Hospitalist; Emergency Provider Emergency Medicine; Referring Provider Hospitalist; Visit Provider Student in an Organized Health Care Education/Training Program
DX: I48.91 Unspecified atrial fibrillation (principal); N30.00 Acute cystitis without hematuria; J20.9 Acute bronchitis, unspecified; I10 Essential (primary) hypertension; R91.8 Other nonspecific abnormal finding of lung field; B96.20 Unspecified Escherichia coli [E. coli] as the cause of diseases classified elsewhere
CPT/HCPCS: 36415; 71045; 71046; 80048; 81001; 83735; 84443; 84484; 85025; 85027; 87077; 87086; 87088; 87186; 87633; 93005; 93306; 93970; 94640; 94667; 94668; 97110; 97162; 97165; 97530; 97802; 99283; J7040; A4216

== ENCOUNTER → 2018-05-28 08:28 | Outpatient (CLI) | payer MEDICARE, OTHER, SELFPAY ==
[2018-05-25 17:15] VITALS: BMI 27.8
== END ==
PROVIDERS: Referring Provider Nurse Practitioner Family; Visit Provider Nurse Practitioner Family
DX: J02.9 Acute pharyngitis, unspecified (principal)
CPT/HCPCS: 87081

== ENCOUNTER 2018-06-01 16:19 | Emergency (ER) | payer MEDICARE, OTHER, SELFPAY ==
[2018-05-25 17:15] VITALS: BMI 27.8
[2018-06-01] VITALS (7 sets, daily range): BP systolic 120–163; BP diastolic 70–106; PULSE 65–86; RESP 14–20; TEMP 34.4–36.7; O2SAT 93–94; BMI 28.6
--- NOTE | 2018-06-01 17:55 | EKG12_ITS ---
Test Reason : DYSTHYTHMIA Blood Pressure : / mmHG Vent. Rate : 066 BPM Atrial Rate : 066 BPM P-R Int : 178 ms QRS Dur : 088 ms QT Int : 434 ms P-R-T Axes : 056 017 011 degrees QTc Int : 454 ms Normal sinus rhythm Normal ECG Confirmed by PARI LI, VICKIE ([id number]), fan mail editor RYAN SANDERS ([id number]) on 06/04/2018 1:49:05 PM Referred By: Kitty Matias Confirmed By:VICKIE YAÑEZ MD
--- NOTE | 2018-06-01 17:55 | CT_ITS ---
STUDY: CT BRAIN WITHOUT CONTRAST REASON FOR EXAM: Female, 82 years old. Dizziness. RADIATION DOSAGE (If Supplied By Facility): CTDIvol = ( 44.99 ) mGy, DLP = ( 779.24 ) mGycm TECHNIQUE: Transaxial CT imaging of the brain was performed without administration of intravenous contrast material. Individualized dose optimization techniques were used for this CT. COMPARISON: No relevant priors. FINDINGS: Normal soft tissue structures. Normal calvarium. There is mild cerebral atrophy with widening of the extra-axial spaces and ventricular dilatation. There are areas of decreased attenuation within the white matter tracts of the supratentorial brain, consistent with microvascular disease changes. Normal basal ganglia and thalami. Normal brainstem. There is mild cerebellar atrophy. There is no intracranial hemorrhage. There are no findings of an acute ischemic infarction. There is trace opacification of the ethmoid sinuses. CT/Brain/Head without Contrast IMPRESSION: Chronic involutional changes of the brain. Small vessel ischemia. Trace opacification of the ethmoid sinuses consistent with a history of sinusitis. Electronically Signed: Elaine Felix MD at 19:29 EDT Tel , Service support ,
--- NOTE | 2018-06-01 18:00 | ED.VISSUMM ---
- ER Visit Summary Date of Service: 06/01/18 Chief Complaint: Cough, shortness of breath and dizziness History of Present Illness: The patient is a 82 F 3 of A. fib on Eliquis. Prior DVT. Hypertension and renal insufficiency. Patient had a recent hospitalization for her A. fib. Today she stood up and had dizziness. No headache. No chest pain. No abdominal pain. No nausea, vomiting or diarrhea. No melena. No history of prior stroke. No headache. No recent falls or head trauma. No dysuria. Physical Examination: Older female no acute distress. Vital signs are stable. She is afebrile. She does not look septic or toxic. Her pulse ox is 93% room air no signs of hypoxia. HEENT exam unremarkable. No facial droop. Moist weeks membranes. Neck nontender. Lungs clear to auscultation bilaterally. Heart regular rhythm rate about 65 no murmur. Chest wall nontender. Abdomen soft nontender. Normal bowel sounds no peritoneal signs. Patient is moving all 4 extremities. Neurovascular intact. Normal equal symmetrical pharmacy informatics manager strength. Dorsi plantar flexion intact. Calves are nontender without edema or cords neurologically she is awake and alert with no focal motor deficits. Test Results: This is a white count of 4. Hemoglobin 13. No bands. Electrolytes unremarkable potassium 3.4. BUN 45 creatinine 1.5 consistent with dehydration. Urinalysis shows 5-10 white cells but rare bacteria no nitrates are not going to treat that at this time. We will send off a urine culture for follow-up. Troponin normal. EKG shows a sinus rhythm rate of 66 with no acute abnormality. Chest x-ray shows no acute abnormality is normal cardiac silhouette. CT of the brain without contrast shows chronic changes but no acute process. No bleed or acute stroke. Orthostatic from sitting to standing. Consistent with orthostatic hypotension. Emergency Department Course and Treatment: Elderly female with reported dizziness that sounded more orthostatic. And also cough and dyspnea. Her exam is benign. Treatment Plan: 1 L normal saline. Urine culture be sent. At this time I do not think that needs to be treated. I spoke to her and her granddaughter and her son and are comfortable with her being discharged home with outpatient follow-up. Disposition: Discharge Impression: Acute dizziness secondary to orthostatic hypotension. Acute dehydration This note was generated with [employer] software. It may contain incorrect words, spelling, and punctuation that were not noted in review of the chart prior to signing ED Disposition - Plan for ED Patient: Referrals: [facility],Out of [Primary Care Provider] -
--- NOTE | 2018-06-01 18:03 | ED.DCSUM_ITS ---
- ER Visit Summary Date of Service: 06/01/18 Chief Complaint: Cough, shortness of breath and dizziness History of Present Illness: The patient is a 82 F 3 of A. fib on Eliquis. Prior DVT. Hypertension and renal insufficiency. Patient had a recent hospitalization for her A. fib. Today she stood up and had dizziness. No headache. No chest pain. No abdominal pain. No nausea, vomiting or diarrhea. No melena. No history of prior stroke. No headache. No recent falls or head trauma. No dysuria. Physical Examination: Older female no acute distress. Vital signs are stable. She is afebrile. She does not look septic or toxic. Her pulse ox is 93% room air no signs of hypoxia. HEENT exam unremarkable. No facial droop. Moist weeks membranes. Neck nontender. Lungs clear to auscultation bilaterally. Heart regular rhythm rate about 65 no murmur. Chest wall nontender. Abdomen soft nontender. Normal bowel sounds no peritoneal signs. Patient is moving all 4 extremities. Neurovascular intact. Normal equal symmetrical neurology technician strength. Dorsi plantar flexion intact. Calves are nontender without edema or cords neurologically she is awake and alert with no focal motor deficits. Test Results: This is a white count of 4. Hemoglobin 13. No bands. Electrolytes unremarkable potassium 3.4. BUN 45 creatinine 1.5 consistent with dehydration. Urinalysis shows 5-10 white cells but rare bacteria no nitrates are not going to treat that at this time. We will send off a urine culture for follow-up. Troponin normal. EKG shows a sinus rhythm rate of 66 with no acute abnormality. Chest x-ray shows no acute abnormality is normal cardiac silho uette. CT of the brain without contrast shows chronic changes but no acute process. No bleed or acute stroke. Orthostatic from sitting to standing. Consistent with orthostatic hypotension. Emergency Department Course and Treatment: Elderly female with reported dizziness that sounded more orthostatic. And also cough and dyspnea. Her exam is benign. Treatment Plan: 1 L normal saline. Urine culture be sent. At this time I do not think that needs to be treated. I spoke to her and her granddaughter and her son and are comfortable with her being discharged home with outpatient follow-up. Disposition: Discharge Impression: Acute dizziness secondary to orthostatic hypotension. Acute dehydration This note was generated with [employer] software. It may contain incorrect words, spelling, and punctuation that were not noted in review of the chart prior to signing ED Disposition - Plan for ED Patient: Referrals: [facility] Doctor,Out of [Primary Care Provider] -
[2018-06-01 18:24] LABS: Absolute Neutrophil Count 1.6 X10^3/uL (2.0-7.7); Basophil# 0.02 X10^3/uL; Basophil% 0.5 % (0-1); Eosinophil# 0.01 X10^3/uL; Eosinophils% 0.2 % (0-5); Hematocrit 39.9 % (37-47); Hemoglobin 13.3 g/dl (12.0-15.0); Lymphocyte % 48.7 % (19-41); Mean Corp Hgb Conc 33.3 g/gl (32-36); Mean Corpuscular Hgb 29.8 pg (27.0-32.0); Mean Corpuscular Volume 89.3 fL (81-99); Mean Platelet Vol. 9.9 fl (6.2-12.0); Monocyte# 0.51 X10^3/uL; Monocyte% 12.4 % (0-10); Neutrophil # 1.57 X10^3/uL (2.7-7.7); Neutrophil % 38.2 % (47-70); POSITIVE COUNT NO; POSITIVE DIFFERENTIAL NO; POSITIVE MORPHOLOGY NO; Platelet Count 176 K/mm3 (150-450); RBC Distribution Width CV 14.3 % (11.6-14.6); Red Blood Count 4.47 M/mm3 (4.2-5.4); White Blood Count 4.1 K/mm3 (4.4-11.0)
--- NOTE | 2018-06-01 18:30 | RAD_ITS ---
STUDY: X-RAY CHEST REASON FOR EXAM: Female, 82 years old. Dizziness with cough. TECHNIQUE: Single frontal view of the chest. COMPARISON: April 12, 2018 FINDINGS: There is no new focal consolidation. There are stable prominent interstitial markings. There is a stable right paratracheal opacity. Normal size heart. Normal mediastinum and yanni. Normal visualized pulmonary arteries. There is atherosclerotic calcification of the aortic arch. Normal visualized thoracic spine. Normal visualized ribs, clavicles, and shoulders. There is no demonstrated abnormality of the visualized soft tissue structures of the upper abdomen. RAD/Chest 1 View (Portable) IMPRESSION: No acute cardiopulmonary process. Electronically Signed: Elaine Felix MD at 19:25 EDT Tel , Service support ,
[2018-06-01 18:38] LABS: BUN 45 mg/dL (7-18); Creatinine, Serum 1.51 mg/dL (0.55-1.02); Glucose 110 mg/dL (74-106)
[2018-06-01 18:39] LABS: Anion Gap 10 (5-15); BUN/Creat Ratio 29.8 RATIO (10-20); Calcium,Total 9.4 mg/dL (8.5-10.1); Chloride 101 mmol/L (98-107); EST Glomerular Filtration Rate 35 mL/min (>60); Est Glom Filt Rate - Afr Amer 43 mL/min (>60); Estimated Creatinine Clearance 26.74 ml/min; Potassium 3.4 mmol/L (3.5-5.1); Sodium Level 138 mmol/L (136-145)
[2018-06-01 19:17] LABS: Mucous, Urine 0 SEEN /hpf (<or=2+); Red Blood Cells-Urine 0 SEEN /hpf (0-5)
[2018-06-01 19:21] LABS: Color, Urine Yellow (Yellow); Glucose, Dipstick Normal (Normal); Ketone-Dipstick Negative (Negative); Leukocyte Esterase-Dipstick 500 /ul (Negative); Nitrite-Dipstick Negative (Negative); Occult Blood-Urine 25 /ul (Negative); Protein-Dipstick 30 mg/dl (Negative); Urine Bilirubin Dipstick Negative (Negative); Urine Clarity Sl. Cloudy (Clear); Urine Urobilinogen Normal (Normal)
[2018-06-01 19:41] LABS: White Blood Cells 5-10 SEEN /hpf (0-5)
[2018-06-01 19:43] LABS: Squamous Epithelial Cells - UA 0-5 SEEN /hpf (5-10)
[2018-06-01 19:44] LABS: Bacteria RARE /hpf (None Seen)
--- NOTE | 2018-06-01 20:52 | ED.DEP ---
ED Disposition - Plan for ED Patient: Disposition: Home or Assisted Living Instructions: ED Dehydration, ED Hypotension Orthostatic Referrals: [facility],Out of [Primary Care Provider] - 3-5 Days if not improving Additional Instructions: Plenty of fluids and rest. Follow-up with your doctor if not improving. We did a urine culture if that shows any signs of infection we will follow-up with you.
[2018-06-01] MEDS: 0.9% Normal Saline 1,000 ML 999 ML IV (20:53)
== END 2018-06-01 22:09 | disposition home or self-care (01) ==
PROVIDERS: Emergency Provider Emergency Medicine
DX: I95.1 Orthostatic hypotension (principal); R42 Dizziness and giddiness; E86.0 Dehydration; I10 Essential (primary) hypertension; I48.91 Unspecified atrial fibrillation; Z79.02 Long term (current) use of antithrombotics/antiplatelets; Z86.718 Personal history of other venous thrombosis and embolism; Z79.899 Other long term (current) drug therapy
CPT/HCPCS: 70450; 71045; 80048; 81001; 84484; 85025; 87077; 87086; 87088; 87186; 93005; 96360; 99285; J7030; A4216

== ENCOUNTER 2018-08-15 12:11 | Emergency (ER) | payer MEDICARE, OTHER, SELFPAY ==
[2018-06-01 16:20] VITALS: BMI 28.6
[2018-08-15 12:13] VITALS: BP 218/94; PULSE 65; RESP 16; TEMP 36.6; O2SAT 96; BMI 28.3
[2018-08-15 12:25] VITALS: BP 177/93
--- NOTE | 2018-08-15 12:26 | ED.VIS.GEN ---
History of Present Illness Chief Complaint: Upper Extremity Injury Detail of Chief Complaint: There is no history of injury. Patient presents because of lump Informant: Patient Onset: Days Context: Sudden Onset Timing: Continuous Quality: Lump Location: Medial left antecubital fossa Current Severity: - - No associated pain or discomfort Maximum Severity: - - No associated pain or discomfort Worsened by: Nothing Relieved by: Nothing Associated Symptoms: No associated symptoms Narrative: Patient is an 82-year-old [id number] woman who presents because of lump medial left antecubital fossa. Daughter was concerned DVT. Patient has history of superficial phlebitis lower extremities. She denies fever, chills or night sweats. There is no history of trauma. She denies paresthesia, anesthesia motor weakness. Prior similar symptoms: No Recent Illness/Hospitalization: No - Past Medical History (1) Atrial fibrillation with RVR Status: Acute (2) Essential (primary) hypertension Status: Chronic (3) Lung nodule seen on imaging study Status: Chronic Past Medical History - Allergies and Home Meds Allergies/Adverse Reactions: Allergies amoxicillin Allergy (Verified 08/15/18 12:12) Rash cefdinir Allergy (Verified 08/15/18 12:12) Rash clavulanic acid [From Augmentin] Allergy (Verified 08/15/18 12:12) Rash heparin Allergy (Verified 08/15/18 12:12) Rash levofloxacin [From Levaquin] Allergy (Verified 08/15/18 12:12) Rash antibiotic Allergy (Uncoded 08/15/18 12:12) rash Antibiotic for cellulitis Primary Care Physician: [facility] Doctor,Out of [Primary Care Provider] - Prior records reviewed: Yes Surgical History: noncontributory, tonsillectomy, - - 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 Also she had vein stripping Lives: Alone Smoking Status: Never smoker Alcohol: None Review of Systems General: Denies: Chills, Fever, Malaise, Sweats Cardiovascular: Denies: Chest pain, Palpitations, Heart racing Respiratory: Denies: Dyspnea, Cough, Sputum, Dyspnea on exertion Musculoskeletal: Denies: Myalgias, Arthralgias, Neck pain, Back pain, Swelling, Extremity Pain Skin: Denies: Rash, Wounds Neurological: Denies: Weakness, Parasthesia, Numbness Physical Exam Vital Signs/Narrative: Vital Signs Temp Pulse Resp BP Pulse Ox 08/15/18 12:13 97.9 F 65 16 218/94 H 96 Inital Vital Signs reviewed: Yes General: Well nourished, Well developed, No Acute Distress Head: Normocephalic, Atraumatic Eyes: Perrl, EOMI. Negative for: Pale conjunctiva, Scleral icterus ENT: Moist mucous membranes, No rhinorrhea Respiratory: No distress, CTA bilaterally Extremities: Nontender, No edema, - - There is a palpable lipoma medial left antecubital fossa. The lipoma is the size of a Isabel. The mass is smooth firm mobile and nontender. There is no epitrochlear or axillary lymphadenopathy. There are no skin changes noted. There is no evidence of superficial phlebitis. Skin: Normal color, No rash, No Trauma. Negative for: Cyanosis, Diaphoresis, Jaundice Neurological: Alert, Oriented x3, Cranial nerves II-XII grossly intact, Normal Strength, Normal Sensation Psychological: Normal affect Diagnostic/Tx/Re-eval Since findings are consistent with lipoma. There is no neurovascular findings or any other symptoms. No work-up is indicated. ED Disposition - Plan for ED Patient: Disposition: Home or Assisted Living Diagnosis: Lipoma of arm Instructions: ED Lipoma Referrals: [facility],Out of [Primary Care Provider] - As Needed
[2018-08-15 13:05] VITALS: PULSE 61; RESP 25; O2SAT 94
== END 2018-08-15 13:08 | disposition home or self-care (01) ==
LOC: ED 12:39
PROVIDERS: Emergency Provider Emergency Medicine
DX: D17.22 Benign lipomatous neoplasm of skin and subcutaneous tissue of left arm (principal); I48.91 Unspecified atrial fibrillation; I10 Essential (primary) hypertension; Z79.899 Other long term (current) drug therapy
CPT/HCPCS: 99282

== ENCOUNTER → 2018-10-05 | Outpatient (CLI) | payer MEDICARE, OTHER, SELFPAY ==
[2018-08-22 13:32] VITALS: BMI 30.6
--- NOTE | 2018-10-05 10:11 | PFT ---
INTRODUCTION: The patient is an 83-year-old female that presents for pulmonary function studies secondary to a diagnosis of dyspnea on exertion. Respiratory therapy reports good patient effort. Bronchodilators were used during testing. INTERPRETATION: Forced expiration spirometry demonstrates the presence of a moderate large airways obstructive ventilatory defect. There was no significant response to aerosolized bronchodilators, based upon strict ATS criteria. Spirograms are of good quality and do not plateau indicating slow emptying of the lungs. Body plethysmography was performed and reveals lung volumes to be within normal limits. Diffusing capacity by single breath CO is at the lower limits of normal. IMPRESSION: Irreversible moderate large airways obstructive ventilatory defect with preserved lung volumes. Diffusing capacity is at the lower limits of normal.
== END | disposition home or self-care (01) ==
PROVIDERS: Referring Provider Nurse Practitioner Family; Visit Provider Nurse Practitioner Family
DX: R06.09 Other forms of dyspnea (principal)
CPT/HCPCS: 94060; 94726; 94729

== ENCOUNTER → 2019-03-19 11:48 | Outpatient (CLI) | payer MEDICARE, OTHER, SELFPAY ==
[2019-03-19 09:58] VITALS: BMI 32.5
== END ==
PROVIDERS: Referring Provider Internal Medicine Cardiovascular Disease; Visit Provider Internal Medicine Cardiovascular Disease
DX: I10 Essential (primary) hypertension (principal)
CPT/HCPCS: 93788

== ENCOUNTER → 2019-04-06 | Outpatient (CLI) | payer MEDICARE, OTHER, SELFPAY ==
[2019-03-19 09:58] VITALS: BMI 32.5
[2019-04-06 11:01] LABS: Anion Gap 5 (5-15); BUN 26 mg/dL (7-18); Calcium,Total 9.6 mg/dL (8.5-10.1); Chloride 101 mmol/L (98-107); Creatinine, Serum 1.18 mg/dL (0.55-1.02); EST Glomerular Filtration Rate 47 mL/min (>60); Est Glom Filt Rate - Afr Amer 57 mL/min (>60); Glucose 89 mg/dL (74-106); Potassium 4.1 mmol/L (3.5-5.1); Sodium Level 137 mmol/L (136-145)
== END | disposition home or self-care (01) ==
LOC: LAB 08:34
PROVIDERS: Referring Provider Internal Medicine Cardiovascular Disease; Visit Provider Internal Medicine Cardiovascular Disease
DX: I10 Essential (primary) hypertension (principal); I48.0 Paroxysmal atrial fibrillation; R06.09 Other forms of dyspnea
CPT/HCPCS: 36415; 80048

== ENCOUNTER 2020-05-22 12:29 | Inpatient (IN) | payer MEDICARE, OTHER, SELFPAY ==
[2020-05-22] VITALS (16 sets, daily range): BP systolic 113–158; BP diastolic 51–86; PULSE 65–77; RESP 16–26; TEMP 36.4–36.7; O2SAT 96–99; BMI 31.9; BMI 32.0; BMI 28.3
--- NOTE | 2020-05-22 13:07 | CT_ITS ---
STUDY: CT BRAIN WITHOUT CONTRAST REASON FOR EXAM: Female, 84 years old. Injury RADIATION DOSAGE (If Supplied By Facility): CTDIvol = ( 44.99 ) mGy, DLP = ( 745.49 ) mGycm TECHNIQUE: Transaxial CT imaging of the brain was performed without administration of intravenous contrast material. Individualized dose optimization techniques were used for this CT. COMPARISON: Comparison is made with prior study dated 06/01/2018. FINDINGS: Normal soft tissue structures. Normal calvarium. There is mild cerebral atrophy with widening of the extra-axial spaces and ventricular dilatation. There are areas of decreased attenuation within the white matter tracts of the supratentorial brain, consistent with microvascular disease changes. 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 Normal brainstem. There is mild cerebellar atrophy. There is no intracranial hemorrhage. There are no findings of an acute ischemic infarction. Normal visualized paranasal sinuses. CT/Brain/Head without Contrast IMPRESSION: Chronic involutional changes of the brain. Electronically Signed: Von Branham MD at 14:00 EDT , Service support ,
--- NOTE | 2020-05-22 13:08 | EKG12_ITS ---
Test Reason : FALL Blood Pressure : / mmHG Vent. Rate : 069 BPM Atrial Rate : 069 BPM P-R Int : 202 ms QRS Dur : 072 ms QT Int : 402 ms P-R-T Axes : 061 020 019 degrees QTc Int : 430 ms Normal sinus rhythm Non-specific ST & T wave changes Abnormal ECG Confirmed by CECILIA LI, VESTA ([id number]), supervising editor news reel RYAN SANDERS ([id number]) on 05/25/2020 10:54:43 A M Referred By: JENI Confirmed By:LUH BROOKS MD
--- NOTE | 2020-05-22 13:12 | RAD_ITS ---
STUDY: X-RAY - LUMBOSACRAL SPINE REASON FOR EXAM: Female, 84 years old. Fall pain TECHNIQUE: 3 view(s) of the lumbosacral spine were obtained. COMPARISON: None FINDINGS: There is an exaggerated lumbar lordosis. There is no substantial scoliosis. There is normal alignment of the vertebrae. There is diffuse demineralization with multi-level endplate spondylosis. There is multi-level degenerative disc disease with multi-level disc space narrowing. Facet joint osteoarthritis. Normal bilateral sacral ala, sacroiliac joints, and visualized sacrum. There is atherosclerotic calcification of the abdominal aorta without a demonstrated aneurysm. Calcified fibroid uterus. RAD/Lumbar Spine 2 or 3 Views IMPRESSION: Degenerative changes of the spine, as detailed above. Electronically Signed: Von Branham MD at 14:20 EDT , Service support ,
--- NOTE | 2020-05-22 13:12 | RAD_ITS ---
STUDY: X-RAY - PELVIS REASON FOR EXAM: Female, 84 years old. Fall pain TECHNIQUE: One view of the pelvis was obtained. COMPARISON: None. FINDINGS: There is a non-specific bowel gas pattern. Calcified fibroid uterus. Degenerative changes of the lower lumbar spine. Normal bilateral iliac wings, sacroiliac joints and visualized sacrum. Normal visualized bilateral superior and inferior pubic rami. There is narrowing with sclerosis of the pubic symphysis. Normal ischial tuberosities. Normal visualized right femoral head. Normal right acetabulum. There is mild articular joint space narrowing of the right hip. Normal visualized left femoral head. Normal left acetabulum. There is mild articular joint space narrowing of the left hip. RAD/Pelvis 1 or 2 Views IMPRESSION: Degenerative changes. No fracture is seen. Electronically Signed: Von Branham MD at 14:18 EDT , Service support ,
[2020-05-22 13:49] LABS: Absolute Lymphocyte Count 1.23 X10^3/uL (0.83-4.51); Absolute Neutrophil Count 6.6 X10^3/uL (2.0-7.7); Basophil# 0.03 X10^3/uL; Basophil% 0.4 % (0-1); Eosinophil# 0.01 X10^3/uL; Eosinophils% 0.1 % (0-5); Hematocrit 37.5 % (37-47); Hemoglobin 12.3 g/dL (12.0-15.0); Lymphocyte # 1.23 X10^3/ul (4.0); Lymphocyte % 14.4 % (19-41); Mean Corp Hgb Conc 32.8 g/dL (32-36); Mean Corpuscular Hgb 29.7 pg (27.0-32.0); Mean Corpuscular Volume 90.6 fL (81-99); Monocyte# 0.65 X10^3/uL; Monocyte% 7.6 % (0-10); NRBC Flagged by Analyzer 0 % (0-5); Neutrophil % 77.1 % (47-70); Platelet Count 236 K/mm3 (150-450); RBC Distribution Width CV 13.2 % (11.6-14.6); RBC Distribution Width SD 43.5 fl (35.1-43.9); Red Blood Count 4.14 M/mm3 (4.2-5.4); White Blood Count 8.6 K/mm3 (4.4-11.0)
--- NOTE | 2020-05-22 13:50 | RAD_ITS ---
STUDY: X-RAY CHEST REASON FOR EXAM: Female, 84 years old. Weakness TECHNIQUE: Single AP portable view of the chest. COMPARISON: Comparison is made with prior study dated 06/01/2018. FINDINGS: EKG electrodes are seen. Stable increased interstitial markings at the right lung apex as well as both lung bases suggestive of scarring. Hyperinflation. There is no demonstrated pleural abnormality. Normal size heart. Normal mediastinum and yanni. Normal visualized pulmonary arteries. There is atherosclerotic calcification of the aortic arch with tortuosity. There is a dextroscoliosis of the thoracic spine. Normal visualized ribs, clavicles, and shoulders. There is no demonstrated abnormality of the visualized soft tissue structures of the upper abdomen. RAD/Chest 1 View (Portable) IMPRESSION: Hyperinflation. Stable scarring at the right lung apex as well as both lower lobes. Electronically Signed: Von Branham MD at 14:17 EDT , Service support ,
[2020-05-22 13:51] LABS: International Normalized Ratio 1.2; Prothrombin Time (Protime)PT. 14.7 SECONDS (11.7-14.9)
[2020-05-22 13:52] LABS: Partial Thromboplast Time 27.3 Seconds (24.1-36.2)
[2020-05-22 14:02] LABS: ALB/GLOB Ratio 0.8 RATIO (0.9-2.4); AST(SGOT) 23 U/L (15-37); Alanine Aminotransfer ALT/SGPT 18 U/L (13-56); Albumin, Serum 3.3 g/dL (3.2-5.0); Alkaline Phosphatase 76 U/L (45-117); Anion Gap 8 (5-15); BUN 32 mg/dL (7-18); BUN/Creat Ratio 20.5 RATIO (10-20); Chloride 101 mmol/L (98-107); Creatinine, Serum 1.56 mg/dL (0.55-1.02); EST Glomerular Filtration Rate 34 mL/min (>60); Est Glom Filt Rate - Afr Amer 41 mL/min (>60); Estimated Creatinine Clearance 26.03 ml/min; Globulin 3.9 g/dL (2.2-4.2); Glucose 120 mg/dL (74-106); Potassium 3.5 mmol/L (3.5-5.1); Protein, Total 7.2 g/dL (6.4-8.2); Sodium Level 136 mmol/L (136-145)
[2020-05-22 14:03] LABS: CPK Total, Creatine Kinase 496 U/L (26-192)
--- NOTE | 2020-05-22 14:03 | ED.VIS.GEN ---
History of Present Illness Chief Complaint: Fall Informant: Patient, Family Narrative: 84-year-old female presents with confusion weakness and fall. She tells me that last night around 2100 hrs. she went to sit on the bed and missed and slid down into a sitting position. Due to her bad knees she was unable to get up. Family checked on her this morning and found her sitting there. They are able to help her up and noted some buttock bruising. She states she did not hit her head. Family took her to urgent care where she reportedly was diagnosed with a UTI. It was a dip urine that was positive for leukocyte esterase and for rates.. But given her confusion and weakness recommended that she come to the hospital. She used to live with her son but then was feeling well enough that she wanted to try living on her own again. Her granddaughter brings her in to the ED. 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 Patient was not sure on her age. She does have moments where she seems very lucid and others very confused. Family notes that she does not eat much. - Past Medical History (1) COPD (chronic obstructive pulmonary disease) Status: Chronic (2) Elevated blood pressure reading in office with white coat syndrome, without diagnosis of hypertension Status: Chronic (3) Essential (primary) hypertension Status: Chronic (4) Paroxysmal atrial fibrillation Status: Chronic Past Medical History - Allergies and Home Meds Allergies/Adverse Reactions: Allergies amoxicillin Allergy (Verified 05/22/20 12:35) Rash cefdinir Allergy (Verified 05/22/20 12:35) Rash clavulanic acid [From Augmentin] Allergy (Verified 05/22/20 12:35) Rash heparin Allergy (Verified 05/22/20 12:35) Rash levofloxacin [From Levaquin] Allergy (Verified 05/22/20 12:35) Rash antibiotic Allergy (Uncoded 05/22/20 12:35) rash Antibiotic for cellulitis Surgical History: noncontributory, tonsillectomy, - - 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 Also she had vein stripping Lives: Alone Smoking Status: Never smoker Alcohol: None Drugs: None - Family History Maternal Family History: Family History (Last Reviewed 05/22/20 @ 12:03 by Sherita Garibay) Father Cancer Family History: Reports: Dementia Paternal Family History: Family History (Last Reviewed 05/22/20 @ 12:03 by Sherita Garibay) Father Cancer Family History: Reports: Cancer Review of Systems General: Denies: Chills, Fever, Sweats Eyes: Denies: Visual changes - bilaterally, Diplopia ENT: Denies: Rhinorrhea, Sore throat Cardiovascular: Denies: Chest pain, Palpitations Respiratory: Denies: Dyspnea, Cough, Dyspnea on exertion Gastrointestinal: Denies: Abdominal pain, Nausea, Vomiting, Diarrhea, Melena, Hematochezia Genitourinary: Denies: Dysuria, Hematuria, Frequency Musculoskeletal: Reports: Back pain - Low back and buttock pain. Denies: Extremity Pain Skin: Denies: Rash, Wounds Neurological: Reports: Weakness. Denies: Headache, Numbness Physical Exam Vital Signs/Narrative: Vital Signs Temp Pulse Resp BP Pulse Ox 05/22/20 13:30 70 22 H 96 05/22/20 12:31 98 F 77 18 149/86 H 98 Inital Vital Signs reviewed: Yes General: Well nourished, Well developed, Obese, No Acute Distress Head: Normocephalic, Atraumatic Eyes: Perrl, EOMI ENT: Moist mucous membranes, No rhinorrhea Neck: Supple, Nontender Cardiovascular: Regular rate, Regular rhythm, No murmurs Respiratory: No distress, CTA bilaterally, Chest nontender Abdomen: Soft, Nontender, Nondistended, Normal bowel sounds Back: - - Buttock and lower lumbar paraspinal musculature tenderness to palpation Extremities: Nontender, No edema Skin: Normal color, No rash Neurological: Alert, Cranial nerves II-XII grossly intact, Normal Strength, Normal Sensation. Negative for: Oriented x3 - Orientated to name and place. Psychological: Normal affect, Normal Mood Diagnostic/Tx/Re-eval Clinical Impression(s) from Imaging Studies Brain CT 05/22/20 13:07 IMPRESSION: Chronic involutional changes of the brain. Electronically Signed: Von Branham MD at 14:00 EDT , Service support , Lumbar Spine X-Ray 05/22/20 13:12 IMPRESSION: Degenerative changes of the spine, as detailed above. Electronically Signed: Von Branham MD at 14:20 EDT , Service support , Pelvis X-Ray 05/22/20 13:12 IMPRESSION: Degenerative changes. No fracture is seen. Electronically Signed: Von Branham MD at 14:18 EDT , Service support , Chest X-Ray 05/22/20 13:50 IMPRESSION: Hyperinflation. Stable scarring at the right lung apex as well as both lower lobes. Electronically Signed: Von Branham MD at 14:17 EDT , Service support , Laboratory Last Values WBC 8.6 K/mm3 (4.4-11.0) 05/22/20 13:30 RBC 4.14 M/mm3 (4.2-5.4) L 05/22/20 13:30 Hgb 12.3 g/dL (12.0-15.0) 05/22/20 13:30 Hct 37.5 % (37-47) 05/22/20 13:30 MCV 90.6 fL (81-99) 05/22/20 13:30 MCH 29.7 pg (27.0-32.0) 05/22/20 13:30 MCHC 32.8 g/dL (32-36) 05/22/20 13:30 RDW Std Deviation 43.5 fl (35.1-43.9) 05/22/20 13:30 RDW Coeff of Dave 13.2 % (11.6-14.6) 05/22/20 13:30 Plt Count 236 K/mm3 (150-450) 05/22/20 13:30 MPV 10.0 fl (6.2-12.0) 05/22/20 13:30 Immature Gran % (Auto) 0.400 % (0.0-0.9) 05/22/20 13:30 Neut % (Auto) 77.1 % (47-70) H 05/22/20 13:30 Lymph % (Auto) 14.4 % (19-41) L 05/22/20 13:30 [place] % (Auto) 7.6 % (0-10) 05/22/20 13:30 Eos % (Auto) 0.1 % (0-5) 05/22/20 13:30 Baso % (Auto) 0.4 % (0-1) 05/22/20 13:30 Absolute Neuts (auto) 6.6 X10^3/uL (2.0-7.7) 05/22/20 13:30 Absolute Lymphs (auto) 1.23 X10^3/uL (0.83-4.51) 05/22/20 13:30 Nucleated RBC % 0 % (0-5) 05/22/20 13:30 PT 14.7 SECONDS (11.7-14.9) 05/22/20 13:30 INR 1.2 05/22/20 13:30 APTT 27.3 Seconds (24.1-36.2) 05/22/20 13:30 Sodium 136 mmol/L (136-145) 05/22/20 13:30 Potassium 3.5 mmol/L (3.5-5.1) 05/22/20 13:30 Chloride 101 mmol/L (98-107) 05/22/20 13:30 Carbon Dioxide 27.0 mmol/L (21.0-32.0) 05/22/20 13:30 Anion Gap 8 (5-15) 05/22/20 13:30 BUN 32 mg/dL (7-18) H 05/22/20 13:30 Creatinine 1.56 mg/dL (0.55-1.02) H 05/22/20 13:30 Estim Creat Clear Calc 26.03 ml/min 05/22/20 13:30 Est GFR (MDRD) Af Amer 41 mL/min (>60) L 05/22/20 13:30 Est GFR (MDRD) Non-Af 34 mL/min (>60) L 05/22/20 13:30 BUN/Creatinine Ratio 20.5 RATIO (10-20) H 05/22/20 13:30 Glucose 120 mg/dL (74-106) H 05/22/20 13:30 Lactic Acid 2.8 mmol/L (0.4-1.9) H* 05/22/20 13:30 Calcium 9.0 mg/dL (8.5-10.1) 05/22/20 13:30 Total Bilirubin 0.70 mg/dL (0.20-1.00) 05/22/20 13:30 AST 23 U/L (15-37) 05/22/20 13:30 ALT 18 U/L (13-56) 05/22/20 13:30 Alkaline Phosphatase 76 U/L (45-117) 05/22/20 13:30 Total Creatine Kinase 496 U/L (26-192) H 05/22/20 13:30 Troponin I < 0.015 ng/mL (<0.045) 05/22/20 13:30 Total Protein 7.2 g/dL (6.4-8.2) 05/22/20 13:30 Albumin 3.3 g/dL (3.2-5.0) 05/22/20 13:30 Globulin 3.9 g/dL (2.2-4.2) 05/22/20 13:30 Albumin/Globulin Ratio 0.8 RATIO (0.9-2.4) L 05/22/20 13:30 - Medical Decision Making Patient has minimal elevation of her CPK. Lactic acid elevated 2.8. Her white count however is normal. She does have evidence of encephalopathy. Patient received a dose of Rocephin and IV fluids.. My interpretation of the plain films of the lumbar spine, pelvis and chest are no acute fracture no infiltrate no acute disease. CT brain negative. Our plan is admission. ED Disposition - Plan for ED Patient: Disposition: Acute Care Hospital [facility] Diagnosis: UTI (urinary tract infection), Sepsis, Encephalopathy acute, Contusion, buttock, Strain of muscle, fascia and tendon of lower back, initial encounter, Fall
[2020-05-22 14:30] LABS: Mucous, Urine 0 SEEN /hpf (<or=2+)
[2020-05-22 14:46] LABS: Color, Urine Yellow (Yellow); Glucose, Dipstick Normal (Normal); Ketone-Dipstick 5 mg/dl (Negative); Leukocyte Esterase-Dipstick 500 /ul (Negative); Nitrite-Dipstick Positive (Negative); Occult Blood-Urine 25 /ul (Negative); Protein-Dipstick Negative (Negative); Urine Bilirubin Dipstick Negative (Negative); Urine Clarity Cloudy (Clear); Urine Urobilinogen Normal (Normal)
[2020-05-22 14:53] LABS: Lactic Acid 2.8 mmol/L (0.4-1.9)
[2020-05-22] MEDS: Ceftriaxone 1 GM/50 ML BAG IV (14:53)
[2020-05-22] MEDS: 0.9% Normal Saline 1,000 ML 999 ML IV (14:58)
[2020-05-22 15:02] LABS: Bacteria 4+ /hpf (None Seen); Red Blood Cells-Urine 10-25 SEEN /hpf (0-5); Squamous Epithelial Cells - UA 0-5 SEEN /hpf (5-10); White Blood Cells 50-100 SEEN /hpf (0-5)
--- NOTE | 2020-05-22 15:11 | PCM.HP.STD ---
Problem List (1) Severe sepsis Status: Acute (2) UTI (urinary tract infection) Status: Acute Qualifiers: Urinary tract infection type: acute cystitis Hematuria presence: without hematuria Qualified Code(s): N30.00 - Acute cystitis without hematuria (3) Encephalopathy acute Status: Acute (4) COPD (chronic obstructive pulmonary disease) Status: Chronic Qualifiers: COPD type: unspecified COPD Qualified Code(s): J44.9 - Chronic obstructive pulmonary disease, unspecified (5) Paroxysmal atrial fibrillation Status: Chronic (6) Essential (primary) hypertension Status: Chronic History of Present Illness Date of Admission: 05/22/20 Chief Complaint: Confusion - 1 day The patient is a 84 year old F with past medical history of paroxysmal atrial fibrillation, hypertension, COPD comes in with confusion. Patient lives alone and has family checking on him every day. She last talked to her granddaughter at 8 PM. She stated that around 9 PM, she was going to sit down when she slid and landed on the floor in a sitting position. She sat up on the floor the whole night. Patient stated that she has bad knees and she was unable to get up. Around 6 AM, her family tried to get a hold of her. She was not answering the phone. Her granddaughter went in to see her found her sitting up. She appeared confused. She talked about seeing some water going up the wall, and seeing her son earlier on in the room. She also says she saw some spiders under the chairs. Denied any fever or chills or cough or shortness of breath. No sick contact. She denied any dysuria but has had increased frequency, urgency and incontinence of urine. Was seen earlier on in the urgent care and diagnosed with UTI. However because of her generalized weakness and confusion it was recommended that she come to the hospital. Patient's family open for patient to go for subacute care after this discharge if she qualifies. Past Medical History Past Medical History (Chronic Problems): Chronic Problems (Last Reviewed 05/22/20 @ 12:03 by Sherita Garibay) COPD (chronic obstructive pulmonary disease) (Chronic) Elevated blood pressure reading in office with white coat syndrome, without diagnosis of hypertension (Chronic) Dyspnea on exertion (Chronic) Paroxysmal atrial fibrillation (Chronic) Essential (primary) hypertension (Chronic) Medical History: Medical History (Last Reviewed 03/19/21 @ 12:03 by Sherita Garibay) COPD (chronic obstructive pulmonary disease) (Chronic) J44.9 Elevated blood pressure reading in office with white coat syndrome, without diagnosis of hypertension (Chronic) R03.0 Paroxysmal atrial fibrillation (Chronic) I48.0 Essential (primary) hypertension (Chronic) I10 Basal cell carcinoma C44.91 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 Lung nodule seen on imaging study R91.1 Obesity E66.9 Arm fracture S42.309A Atrial fibrillation with RVR Onset Date: 04/13/18 I48.91 Fracture, rib S22.39XA New onset atrial fibrillation (Resolved) I48.91 Fatigue R53.83 Shortness of breath R06.02 Allergies amoxicillin Allergy (Verified 05/22/20 12:35) Rash cefdinir Allergy (Verified 05/22/20 12:35) Rash clavulanic acid [From Augmentin] Allergy (Verified 05/22/20 12:35) Rash heparin Allergy (Verified 05/22/20 12:35) Rash levofloxacin [From Levaquin] Allergy (Verified 05/22/20 12:35) Rash antibiotic Allergy (Uncoded 05/22/20 12:35) rash Antibiotic for cellulitis Home Medications: Ambulatory Orders Medication Instructions Recorded benazepril 20 mg tablet 40 mg PO DAILY 02/02/18 Acetaminophen [Tylenol] 1,000 mg PO Q6H PRN PRN 04/12/18 Aspirin E.C. [Ecotrin] 81 mg PO DAILY@0800 04/12/18 Fluticasone 0.05% [Flonase Nasal 1 spray NASAL DAILY 06/01/18 [place]] metoprolol tartrate 100 mg tablet 100 mg PO BID #180 tab 03/26/20 Amlodipine Besylate [Norvasc] 5 mg PO DAILY 05/22/20 Apixaban [Eliquis] 2.5 mg PO BID 05/22/20 Hydrochlorothiazide [Hctz] 25 mg PO DAILY 05/22/20 Montelukast Sodium 10 mg PO QHS 05/22/20 Surgical History: Surgical History (Last Reviewed 05/22/20 @ 12:03 by Sherita Garibay) H/O basal cell carcinoma excision Z98.890, Z85.828 History of vein stripping Z98.890 Surgical History: total knee arthroplasty - left, tonsillectomy, - - She reported that the cancer mole was removed from her face. 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 Denies: Anorexia, Chills, Fever, Night Sweats, Weight Change. Eyes: Denies: Blurred vision, Cataracts, Conjunctivae Inflammation, Pain, Redness, Vision Change. HEENT: Denies: Difficulty Hearing, Difficulty Swallowing, Head Aches, Hearing Changes, Sinus Congestion, Sinus Drainage. Cardiovascular: Denies: Chest Pain, Orthopnea, Palpitations. Respiratory: Denies: Cough, Shortness of breath at rest, Sputum production. Gastrointestinal: Denies: Abdominal Pain, Nausea, Vomiting. Genitourinary:Admits to Dysuria. Musculoskeletal: Denies: Joint Pain, Joint stiffness, Joint swelling, Joint Tenderness. Skin: Next to some buttocks excoriation from sitting on the floor. Neurological: Admits to confusion denies: Numbness, Tingling, Focal weakness VTE Information - Inpt Only VTE Present on Admission: No VTE Pharm Prophylaxis ordered?: Yes Patient Problems: Active and Suspected Problems (Last Reviewed 05/22/20 @ 12:03 by Sherita Garibay) UTI (urinary tract infection) (Acute) Sepsis (Acute) Encephalopathy acute (Acute) Contusion, buttock (Acute) Strain of muscle, fascia and tendon of lower back, initial encounter (Acute) Fall (Acute) Severe sepsis (Acute) Objective: General: Alert, Oriented x3, Cooperative, No apparent distress, appeared slightly dishevelled HEENT: Atraumatic, PERRLA, EOMI, Normocephalic Oral: Moist Mucosa Neck: Supple Lungs: Normal air movement, Diminished Cardiovascular: Regular rate, Regular Rhythm, Normal S1, Normal S2, No murmurs Abdomen: Bowel Sounds Present, Soft, Non Tender, Non-Distended, No Hepato-splenomegaly Extremities: No edema Skin: No rashes Neurological: Cranial nerves II-XII grossly intact, Neuro grossly intact Psych/Mental Status: Normal Affect, Appropriate - Physical Exam Vitals/I&O's: Vital Signs Temp Pulse Resp BP Pulse Ox 98.1 F 66 22 H 146/58 H 96 05/22/20 14:59 05/22/20 14:59 05/22/20 14:59 05/22/20 14:59 05/22/20 14:59 Oxygen Delivery Method Room Air Weight: 89.811 kg Body Mass Index (BMI) 31.9 Laboratory Results 05/22/20 13:30: WBC 8.6, RBC 4.14 L, Hgb 12.3, Hct 37.5, MCV 90.6, MCH 29.7, MCHC 32.8, RDW Std Deviation 43.5, RDW Coeff of Dave 13.2, Plt Count 236, MPV 10.0, Immature Gran % (Auto) 0.400, Neut % (Auto) 77.1 H, Lymph % (Auto) 14.4 L, [place] % (Auto) 7.6, Eos % (Auto) 0.1, Baso % (Auto) 0.4, Absolute Neuts (auto) 6.6, Absolute Lymphs (auto) 1.23, Nucleated RBC % 0 05/22/20 13:30: PT 14.7, INR 1.2, APTT 27.3 05/22/20 13:30: Sodium 136, Potassium 3.5, Chloride 101, Carbon Dioxide 27.0, Anion Gap 8, BUN 32 H, Creatinine 1.56 H, Estim Creat Clear Calc 26.03, Est GFR (MDRD) Af Amer 41 L, Est GFR (MDRD) Non-Af 34 L, BUN/Creatinine Ratio 20.5 H, Glucose 120 H, Calcium 9.0, Total Bilirubin 0.70, AST 23, ALT 18, Alkaline Phosphatase 76, Troponin I < 0.015, Total Protein 7.2, Albumin 3.3, Globulin 3.9, Albumin/Globulin Ratio 0.8 L 05/22/20 13:30: Lactic Acid 2.8 H* 05/22/20 13:30: Total Creatine Kinase 496 H 05/22/20 14:25: Urine Color Yellow, Urine Clarity Cloudy, Urine pH 5.0, Ur Specific [place] 1.020, Urine Protein Negative, Urine Glucose (UA) Normal, Urine Ketones 5 H, Urine Occult Blood 25 H, Urine Nitrite Positive H, Urine Bilirubin Negative, Urine Urobilinogen Normal, Ur Leukocyte Esterase 500 H, Urine RBC 10-25 SEEN, Urine WBC 50-100 SEEN, Ur Squamous Epith Cells 0-5 SEEN, Urine Bacteria 4+, Urine Mucus 0 SEEN Current Medications Sodium Chloride () 1,000 mls @ 999 mls/hr IV .Q1H1M ONE Stop: 05/22/20 15:52 Last Admin: 05/22/20 14:58 Dose: 999 mls/hr Documented by: Sodium Chloride () 1,000 mls @ 200 mls/hr IV .Q5H GINNY Assessment/Plan All Active Problems (Last Reviewed 05/22/20 @ 12:03 by Sherita Garibay) UTI (urinary tract infection) (Acute) Sepsis (Acute) Encephalopathy acute (Acute) Contusion, buttock (Acute) Strain of muscle, fascia and tendon of lower back, initial encounter (Acute) Fall (Acute) Severe sepsis (Acute) Bronchitis (Resolved) New onset atrial fibrillation (Resolved) URI (upper respiratory infection) (Resolved) 1. Acute UTI, no signs of sepsis Continue on IV fluids, blood and urine cultures pending Continue on IV ceftriaxone, follow-up on urine cultures 2. Acute metabolic encephalopathy secondary to #1, resolving, Discussed of the brain showed chronic involutional changes Continue to monitor 3. Lactic acidosis, 2.8, unclear etiology, continue to monitor 4. Dehydration in a patient with CKD stage III, likely secondary to #1 Continue with IV fluids, blood work in a.m. 5. Hypertension, controlled, continue on home amlodipine and metoprolol With hold benazepril hydrochlorothiazide for now 6. Paroxysmal atrial fibrillation, continue on metoprolol and apixaban 7. DVT prophylaxis?apixaban 8. Code status - DNR-CCA I discussed and explained in details the various types of CODE STATUS-full code, DNR CCA, DNR CC with the patient and her granddaughter. Patient chose DNR CCA. She does not want to be resuscitated in the event of cardiopulmonary arrest. Time spent discussing CODE STATUS 18 minutes Inpatient E&M: 25630 Init Hosp L2 Procedures: 91679 Advncd Care Plan 30 Min
[2020-05-22 16:54] LABS: CPK Total, Creatine Kinase 501 U/L (26-192)
[2020-05-22] MEDS: 0.9% Normal Saline 1,000 ML 150 ML IV (17:20)
[2020-05-22 17:39] LABS: Reflex Lactate? Y
[2020-05-22 18:34] LABS: Lactic Acid 1.2 mmol/L (0.4-1.9)
--- NOTE | 2020-05-22 18:40 | NURSING ---
PCU [id number]
[2020-05-22] MEDS: Metoprolol Tartrate 100 MG Tablet PO (22:21)
[2020-05-22] MEDS: APIXABAN 2.5 MG TABLET PO (22:21)
[2020-05-22] MEDS: Montelukast 10 MG Tablet PO (22:23)
[2020-05-23] VITALS (10 sets, daily range): BP systolic 96–140; BP diastolic 55–78; PULSE 57–79; RESP 15–20; TEMP 36.2–36.6; O2SAT 96–98
[2020-05-23] MEDS: 0.9% Normal Saline 1,000 ML 150 ML IV ×2 (00:08→06:52)
[2020-05-23 06:41] LABS: Absolute Lymphocyte Count 1.47 X10^3/uL (0.83-4.51); Absolute Neutrophil Count 2.2 X10^3/uL (2.0-7.7); Basophil# 0.02 X10^3/uL; Basophil% 0.4 % (0-1); Eosinophil# 0.33 X10^3/uL; Eosinophils% 7.4 % (0-5); Hematocrit 32.2 % (37-47); Hemoglobin 10.6 g/dL (12.0-15.0); Lymphocyte # 1.47 X10^3/ul (4.0); Lymphocyte % 32.8 % (19-41); Mean Corp Hgb Conc 32.9 g/dL (32-36); Mean Corpuscular Hgb 30.6 pg (27.0-32.0); Mean Corpuscular Volume 93.1 fL (81-99); Mean Platelet Vol. 9.4 fl (6.2-12.0); Monocyte# 0.42 X10^3/uL; Monocyte% 9.4 % (0-10); NRBC Flagged by Analyzer 0 % (0-5); Neutrophil # 2.23 X10^3/uL (2.7-7.7); Neutrophil % 49.8 % (47-70); Platelet Count 162 K/mm3 (150-450); RBC Distribution Width CV 13.2 % (11.6-14.6); RBC Distribution Width SD 44.1 fl (35.1-43.9); Red Blood Count 3.46 M/mm3 (4.2-5.4); White Blood Count 4.5 K/mm3 (4.4-11.0)
[2020-05-23 07:09] LABS: ALB/GLOB Ratio 0.8 RATIO (0.9-2.4); AST(SGOT) 21 U/L (15-37); Alanine Aminotransfer ALT/SGPT 15 U/L (13-56); Albumin, Serum 2.6 g/dL (3.2-5.0); Alkaline Phosphatase 63 U/L (45-117); Anion Gap 6 (5-15); BUN 22 mg/dL (7-18); BUN/Creat Ratio 19.6 RATIO (10-20); Calcium,Total 7.5 mg/dL (8.5-10.1); Chloride 108 mmol/L (98-107); Creatinine, Serum 1.12 mg/dL (0.55-1.02); EST Glomerular Filtration Rate 49 mL/min (>60); Est Glom Filt Rate - Afr Amer 60 mL/min (>60); Estimated Creatinine Clearance 36.25 ml/min; Globulin 3.1 g/dL (2.2-4.2); Glucose 97 mg/dL (74-106); Potassium 3.8 mmol/L (3.5-5.1); Protein, Total 5.7 g/dL (6.4-8.2); Sodium Level 140 mmol/L (136-145)
[2020-05-23] MEDS: Aspirin E.C. 81 MG Tablet PO (10:09)
[2020-05-23] MEDS: Fluticasone 0.05% 1 SPRAY NASAL.SRY NASAL (10:09)
[2020-05-23] MEDS: APIXABAN 2.5 MG TABLET PO ×2 (10:09→21:37)
[2020-05-23] MEDS: Ceftriaxone 1 GM/50 ML BAG IV (10:15)
--- NOTE | 2020-05-23 14:02 | PCM.PN.HOSP ---
Patient Problems: Active and Suspected Problems (Last Reviewed 05/22/20 @ 12:03 by Sherita Garibay) UTI (urinary tract infection) (Acute) Sepsis (Acute) Encephalopathy acute (Acute) Contusion, buttock (Acute) Strain of muscle, fascia and tendon of lower back, initial encounter (Acute) Fall (Acute) Severe sepsis (Acute) Subjective: She is seen and examined. She had no complaints this morning. Review of systems otherwise negative. She has remained hemodynamically stable. Vitals/I&O's: Vital Signs Temp Pulse Resp BP Pulse Ox 97.2 F L 77 20 H 102/60 98 05/23/20 10:04 05/23/20 10:04 05/23/20 10:04 05/23/20 10:04 05/23/20 10:04 Oxygen Delivery Method Room Air Weight: 183 lb 3.266 oz Body Mass Index (BMI) 28.3 Intake and Output for Last 24 Hours 05/21/20 05/22/20 05/23/20 23:59 23:59 23:59 Intake Total 1050 / 1050 2049 / 2049 Output Total 250 / 250 Balance 1050 / 950 1800 / 1800 General: Alert, Oriented x3, Cooperative HEENT: Atraumatic, PERRLA, EOMI, Normocephalic Oral: Moist Mucosa Neck: Supple, No JVD, Negative Carotid Bruits Lungs: Clear to auscultation, Normal air movement Cardiovascular: Regular rate, No murmurs Abdomen: Bowel Sounds Present, Soft, Non Tender Extremities: No edema, Capillary Refill Less than 3 Seconds Skin: No rashes, No breakdown Musculoskeletal: No Tenderness to Palpation of Joints or Extremities Neurological: Cranial nerves II-XII grossly intact Psych/Mental Status: Normal Affect, Appropriate, Alert and oriented to time, place, person, mood and affect Microbiology Past 72 Hours 05/22/20 14:25 Urine, Catheterized Urine 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 Laboratory Results 05/22/20 13:30: Sodium 136, Potassium 3.5, Chloride 101, Carbon Dioxide 27.0, Anion Gap 8, BUN 32 H, Creatinine 1.56 H, Estim Creat Clear Calc 26.03, Est GFR (MDRD) Af Amer 41 L, Est GFR (MDRD) Non-Af 34 L, BUN/Creatinine Ratio 20.5 H, Glucose 120 H, Calcium 9.0, Total Bilirubin 0.70, AST 23, ALT 18, Alkaline Phosphatase 76, Troponin I < 0.015, Total Protein 7.2, Albumin 3.3, Globulin 3.9, Albumin/Globulin Ratio 0.8 L 05/22/20 13:30: Lactic Acid 2.8 H* 05/22/20 13:30: Total Creatine Kinase 496 H 05/22/20 14:25: Urine Color Yellow, Urine Clarity Cloudy, Urine pH 5.0, Ur Specific [place] 1.020, Urine Protein Negative, Urine Glucose (UA) Normal, Urine Ketones 5 H, Urine Occult Blood 25 H, Urine Nitrite Positive H, Urine Bilirubin Negative, Urine Urobilinogen Normal, Ur Leukocyte Esterase 500 H, Urine RBC 10-25 SEEN, Urine WBC 50-100 SEEN, Ur Squamous Epith Cells 0-5 SEEN, Urine Bacteria 4+, Urine Mucus 0 SEEN 05/22/20 16:12: Total Creatine Kinase 501 H 05/22/20 17:55: Lactic Acid 1.2 05/23/20 06:36: WBC 4.5, RBC 3.46 L, Hgb 10.6 L, Hct 32.2 L, MCV 93.1, MCH 30.6, MCHC 32.9, RDW Std Deviation 44.1 H, RDW Coeff of Dave 13.2, Plt Count 162, MPV 9.4, Immature Gran % (Auto) 0.200, Neut % (Auto) 49.8, Lymph % (Auto) 32.8, [place] % (Auto) 9.4, Eos % (Auto) 7.4 H, Baso % (Auto) 0.4, Absolute Neuts (auto) 2.2, Absolute Lymphs (auto) 1.47, Nucleated RBC % 0 05/23/20 06:36: Sodium 140, Potassium 3.8, Chloride 108 H, Carbon Dioxide 26.0, Anion Gap 6, BUN 22 H, Creatinine 1.12 H, Estim Creat Clear Calc 36.25, Est GFR (MDRD) Af Amer 60, Est GFR (MDRD) Non-Af 49 L, BUN/Creatinine Ratio 19.6, Glucose 97, Calcium 7.5 L, Total Bilirubin 0.50, AST 21, ALT 15, Alkaline Phosphatase 63, Total Protein 5.7 L, Albumin 2.6 L, Globulin 3.1, Albumin/Globulin Ratio 0.8 L Diagnostic Data Brain CT 05/22/20 13:07 IMPRESSION: Chronic involutional changes of the brain. Electronically Signed: Von Branham MD at 14:00 EDT , Service support , Lumbar Spine X-Ray 05/22/20 13:12 IMPRESSION: Degenerative changes of the spine, as detailed above. Electronically Signed: Von Branham MD at 14:20 EDT , Service support , Pelvis X-Ray 05/22/20 13:12 IMPRESSION: Degenerative changes. No fracture is seen. Electronically Signed: Von Branham MD at 14:18 EDT , Service support , Chest X-Ray 05/22/20 13:50 IMPRESSION: Hyperinflation. Stable scarring at the right lung apex as well as both lower lobes. Electronically Signed: Von Branham MD at 14:17 EDT , Service support , Current Medications Acetaminophen (Acetaminophen 500 Mg Tablet) 1,000 mg PO Q6H PRN PRN PRN Reason: PAIN 1-10 Albuterol Sulfate (Albuterol 2.5 Mg/3 Ml Vial.Neb.) 2.5 mg INHALATION Q2H PRN PRN PRN Reason: SOB/Wheezing Amlodipine Besylate (Amlodipine 5 Mg Tablet) 5 mg PO DAILY [facility] Last Admin: 05/23/20 10:07 Dose: Not Given Documented by: Apixaban (Apixaban 2.5 Mg Tablet) 2.5 mg PO BID [facility] Last Admin: 05/23/20 10:09 Dose: 2.5 mg Documented by: Aspirin (Aspirin E.C. 81 Mg Tablet) 81 mg PO DAILY@0800 [facility] Last Admin: 05/23/20 10:09 Dose: 81 mg Documented by: Fluticasone Propionate (Fluticasone 0.05% 1 [place] Nasal.Sry) 1 spray NASAL DAILY [facility] Last Admin: 05/23/20 10:09 Dose: 1 spray Documented by: Sodium Chloride () 1,000 mls @ 150 mls/hr IV .Q6H40M [facility] Last Admin: 05/23/20 06:52 Dose: 150 mls/hr Documented by: Ceftriaxone Sodium (Rocephin) 1 gm in 50 mls @ 100 mls/hr IV Q24 [facility] Last Infusion: 05/23/20 10:45 Dose: Infused Documented by: Metoprolol Tartrate (Metoprolol Tartrate 100 Mg Tablet) 100 mg PO BID [facility] Last Admin: 05/23/20 10:07 Dose: Not Given Documented by: Montelukast Sodium (Montelukast 10 Mg Tablet) 10 mg PO QHS [facility] Last Admin: 05/22/20 22:23 Dose: 10 mg Documented by: Ondansetron HCl (Ondansetron 4 Mg/2 Ml Vial) 4 mg IV Q8H PRN PRN PRN Reason: NAUSEA/VOMITING Psyllium Hydrophilic Mucilloid (Psyllium 1 Packet) 1 packet PO DAILY PRN PRN PRN Reason: Constipation Senna/Docusate Sodium (Senna/Docusate Sodium 1 Tablet) 2 tablet PO BID PRN PRN Reason: Constipation Sodium Chloride (0.9% Saline Lock 10 Ml Syringe) 10 - 40 ml IV UD PRN PRN Reason: SALINE FLUSH STROKE Vital Signs/Narrative: Vital Signs Temp Pulse Resp BP Pulse Ox 05/23/20 10:04 97.2 F L 77 20 H 102/60 98 Medical Necessity - Tobacco Use Smoking Status: Never smoker Tobacco Use: Non-smoker Assessment/Plan All Active Problems (Last Reviewed 05/22/20 @ 12:03 by Sherita Garibay) UTI (urinary tract infection) (Acute) Sepsis (Acute) Encephalopathy acute (Acute) Contusion, buttock (Acute) Strain of muscle, fascia and tendon of lower back, initial encounter (Acute) Fall (Acute) Severe sepsis (Acute) Bronchitis (Resolved) New onset atrial fibrillation (Resolved) URI (upper respiratory infection) (Resolved) Procedure Criteria COVID Risk Discussion: #UTI 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 Blood cultures pending. On IV ceftriaxone. Will continue. Hydrate gently with IV fluids. #Acute metabolic encephalopathy due to UTI: As above. Encephalopathy has largely resolved. #Lactic acidosis: Resolved #Dehydration: Resolved. Creatinine is trended down to 1.12 from 1.56 on admission. #Paroxysmal A. fib: On metoprolol. Also on Eliquis. #DVT prophylaxis: On Eliquis. CODE STATUS DNR CC a no intubation. Inpatient E&M: 91555 Subs Hosp L2
--- NOTE | 2020-05-23 14:24 | CASEMGMT ---
SOCIAL WORK Reason for Consult: Discharge Planning Met with patient in room. Patient sitting up in chart. Patient A&O and open to talking with this worker. Introduced role and reason for referral. Patient states prior to admission was staying with son, as she does every winter. Patient reports normally independent with ADLS/IADLS. Patient states does have walker and cane at home if needed. Patient states completed therapy today and was a little unsteady. Patient unsure of needs at this time SNF vs Home. Patient states if discharged home, will return to son's home. Informed SW/CM will follow up on Monday. Clare Morin MSW, FEED CRUSHER OPERATOR
[2020-05-23] MEDS: Montelukast 10 MG Tablet PO (21:37)
[2020-05-23] MEDS: Metoprolol Tartrate 100 MG Tablet PO (21:37)
[2020-05-24] VITALS (15 sets, daily range): BP systolic 105–127; BP diastolic 58–69; PULSE 62–92; RESP 15–18; TEMP 36.6–36.8; O2SAT 95–97
[2020-05-24 06:18] LABS: Absolute Lymphocyte Count 1.62 X10^3/uL (0.83-4.51); Absolute Neutrophil Count 2.2 X10^3/uL (2.0-7.7); Basophil# 0.03 X10^3/uL; Basophil% 0.7 % (0-1); Eosinophil# 0.26 X10^3/uL; Eosinophils% 5.8 % (0-5); Hematocrit 32.4 % (37-47); Hemoglobin 10.5 g/dL (12.0-15.0); Lymphocyte # 1.62 X10^3/ul (4.0); Lymphocyte % 35.9 % (19-41); Mean Corp Hgb Conc 32.4 g/dL (32-36); Mean Corpuscular Hgb 30.2 pg (27.0-32.0); Mean Corpuscular Volume 93.1 fL (81-99); Mean Platelet Vol. 10.7 fl (6.2-12.0); Monocyte# 0.41 X10^3/uL; Monocyte% 9.1 % (0-10); NRBC Flagged by Analyzer 0 % (0-5); Neutrophil # 2.18 X10^3/uL (2.7-7.7); Neutrophil % 48.3 % (47-70); Platelet Count 176 K/mm3 (150-450); RBC Distribution Width CV 13.1 % (11.6-14.6); RBC Distribution Width SD 44.8 fl (35.1-43.9); Red Blood Count 3.48 M/mm3 (4.2-5.4); White Blood Count 4.5 K/mm3 (4.4-11.0)
[2020-05-24 06:56] LABS: Anion Gap 6 (5-15); BUN 20 mg/dL (7-18); BUN/Creat Ratio 21.1 RATIO (10-20); Calcium,Total 7.6 mg/dL (8.5-10.1); Chloride 108 mmol/L (98-107); Creatinine, Serum 0.95 mg/dL (0.55-1.02); EST Glomerular Filtration Rate 60 mL/min (>60); Est Glom Filt Rate - Afr Amer 73 mL/min (>60); Estimated Creatinine Clearance 42.74 ml/min; Glucose 93 mg/dL (74-106); Potassium 3.4 mmol/L (3.5-5.1); Sodium Level 139 mmol/L (136-145)
[2020-05-24] MEDS: Fluticasone 0.05% 1 SPRAY NASAL.SRY NASAL (09:02)
[2020-05-24] MEDS: Metoprolol Tartrate 100 MG Tablet PO ×2 (09:02→21:28)
[2020-05-24] MEDS: amLODIPine 5 MG Tablet PO (09:03)
[2020-05-24] MEDS: APIXABAN 2.5 MG TABLET PO ×2 (09:03→21:28)
[2020-05-24] MEDS: Aspirin E.C. 81 MG Tablet PO (09:03)
[2020-05-24] MEDS: Ceftriaxone 1 GM/50 ML BAG IV (09:05)
[2020-05-24] MEDS: Potassium Chloride Oral Tablet 20 MEQ 40 MEQ PO (09:05)
--- NOTE | 2020-05-24 11:53 | PCM.PN.HOSP ---
Patient Problems: Active and Suspected Problems (Last Reviewed 05/22/20 @ 12:03 by Sherita Garibya) UTI (urinary tract infection) (Acute) Sepsis (Acute) Encephalopathy acute (Acute) Contusion, buttock (Acute) Strain of muscle, fascia and tendon of lower back, initial encounter (Acute) Fall (Acute) Severe sepsis (Acute) Subjective: Patient seen and examined. She has no complaints. Review of systems is otherwise negative. She now tells me that she would prefer to go home to her son's house. Review of systems was otherwise negative. He has remained hemodynamically stable and potassium is 3.4 today. Vitals/I&O's: Vital Signs Temp Pulse Resp BP Pulse Ox 98.3 F 72 18 123/62 H 97 05/24/20 08:57 05/24/20 09:02 05/24/20 08:57 05/24/20 09:02 05/24/20 08:57 Oxygen Delivery Method Room Air Weight: 185 lb 10.067 oz Body Mass Index (BMI) 28.3 Intake and Output for Last 24 Hours 05/22/20 05/23/20 05/24/20 23:59 23:59 23:59 Intake Total 1050 / 1050 3770 / 4020 400 / 400 Output Total 450 / 650 300 / 300 Balance 1050 / 950 3320 / 3370 100 / 100 General: Alert, Oriented x3, Cooperative HEENT: Atraumatic, PERRLA, EOMI, Normocephalic Oral: Moist Mucosa Neck: Supple, No JVD, Negative Carotid Bruits Lungs: Clear to auscultation, Normal air movement Cardiovascular: Regular rate, No murmurs Abdomen: Bowel Sounds Present, Soft, Non Tender Extremities: No edema, Capillary Refill Less than 3 Seconds Skin: No rashes, No breakdown Musculoskeletal: No Tenderness to Palpation of Joints or Extremities Neurological: Cranial nerves II-XII grossly intact Psych/Mental Status: Normal Affect, Appropriate, Alert and oriented to time, place, person, mood and affect Microbiology Past 72 Hours 05/22/20 14:25 Urine, Catheterized Urine Culture - Final Escherichia coli 05/22/20 13:30 Blood Culture (Wb) - Anticubital Right Blood Culture - Preliminary No growth in 48 hours. 05/22/20 14:30 Blood Culture (Wb) - Anticubital Left Blood Culture - Preliminary No growth in 48 hours. Laboratory Results 05/24/20 05:26: WBC 4.5, RBC 3.48 L, Hgb 10.5 L, Hct 32.4 L, MCV 93.1, MCH 30.2, MCHC 32.4, RDW Std Deviation 44.8 H, RDW Coeff of Dave 13.1, Plt Count 176, MPV 10.7, Immature Gran % (Auto) 0.200, Neut % (Auto) 48.3, Lymph % (Auto) 35.9, [place] % (Auto) 9.1, Eos % (Auto) 5.8 H, Baso % (Auto) 0.7, Absolute Neuts (auto) 2.2, Absolute Lymphs (auto) 1.62, Nucleated RBC % 0 05/24/20 05:26: Sodium 139, Potassium 3.4 L, Chloride 108 H, Carbon Dioxide 25.0, Anion Gap 6, BUN 20 H, Creatinine 0.95, Estim Creat Clear Calc 42.74, Est GFR (MDRD) Af Amer 73, Est GFR (MDRD) Non-Af 60, BUN/Creatinine Ratio 21.1 H, Glucose 93, Calcium 7.6 L Current Medications Acetaminophen (Acetaminophen 500 Mg Tablet) 1,000 mg PO Q6H PRN PRN PRN Reason: PAIN 1-10 Albuterol Sulfate (Albuterol 2.5 Mg/3 Ml Vial.Neb.) 2.5 mg INHALATION Q2H PRN PRN PRN Reason: SOB/Wheezing Amlodipine Besylate (Amlodipine 5 Mg Tablet) 5 mg PO DAILY [facility] Last Admin: 05/24/20 09:03 Dose: 5 mg Documented by: Apixaban (Apixaban 2.5 Mg Tablet) 2.5 mg PO BID [facility] Last Admin: 05/24/20 09:03 Dose: 2.5 mg Documented by: Aspirin (Aspirin E.C. 81 Mg Tablet) 81 mg PO DAILY@0800 [facility] Last Admin: 05/24/20 09:03 Dose: 81 mg Documented by: Fluticasone Propionate (Fluticasone 0.05% 1 [place] Nasal.Sry) 1 spray NASAL DAILY [facility] Last Admin: 05/24/20 09:02 Dose: 1 spray Documented by: Ceftriaxone Sodium (Rocephin) 1 gm in 50 mls @ 100 mls/hr IV Q24 [facility] Last Infusion: 05/24/20 09:58 Dose: Infused Documented by: Metoprolol Tartrate (Metoprolol Tartrate 100 Mg Tablet) 100 mg PO BID [facility] Last Admin: 05/24/20 09:02 Dose: 100 mg Documented by: Montelukast Sodium (Montelukast 10 Mg Tablet) 10 mg PO QHS [facility] Last Admin: 05/23/20 21:37 Dose: 10 mg Documented by: Ondansetron HCl (Ondansetron 4 Mg/2 Ml Vial) 4 mg IV Q8H PRN PRN PRN Reason: NAUSEA/VOMITING Psyllium Hydrophilic Mucilloid (Psyllium 1 Packet) 1 packet PO DAILY PRN PRN PRN Reason: Constipation Senna/Docusate Sodium (Senna/Docusate Sodium 1 Tablet) 2 tablet PO BID PRN PRN Reason: Constipation Sodium Chloride (0.9% Saline Lock 10 Ml Syringe) 10 - 40 ml IV UD PRN PRN Reason: SALINE FLUSH STROKE Vital Signs/Narrative: Vital Signs Temp Pulse Resp BP Pulse Ox 05/24/20 09:02 72 123/62 H 05/24/20 08:57 98.3 F 72 18 123/62 H 97 Medical Necessity - Tobacco Use Smoking Status: Never smoker Tobacco Use: Non-smoker Assessment/Plan All Active Problems (Last Reviewed 05/22/20 @ 12:03 by Sherita Garibay) UTI (urinary tract infection) (Acute) Sepsis (Acute) Encephalopathy acute (Acute) Contusion, buttock (Acute) Strain of muscle, fascia and tendon of lower back, initial encounter (Acute) Fall (Acute) Severe sepsis (Acute) Bronchitis (Resolved) New onset atrial fibrillation (Resolved) URI (upper respiratory infection) (Resolved) #UTI Urine culture growing E coli. Blood cultures are negative on IV ceftriaxone #Acute metabolic encephalopathy due to UTI:resolved #Lactic acidosis: Resolved #Dehydration: Resolved. #Paroxysmal A. fib: On metoprolol. Also on Eliquis. #DVT prophylaxis: On Eliquis. CODE STATUS DNR CC a no intubation. Disposition: patient initially was agreeable to going to SNF. Now she says she would prefer to go to son's house. WIll speak to family to clarify discharge planning. Inpatient E&M: [id number] Subs Hosp L2
[2020-05-24] MEDS: Montelukast 10 MG Tablet PO (21:28)
[2020-05-25] VITALS (14 sets, daily range): BP systolic 122–147; BP diastolic 62–75; PULSE 62–108; RESP 14–18; TEMP 36.3–36.9; O2SAT 94–96
[2020-05-25 05:46] LABS: Absolute Lymphocyte Count 1.35 X10^3/uL (0.83-4.51); Absolute Neutrophil Count 2.3 X10^3/uL (2.0-7.7); Basophil# 0.02 X10^3/uL; Basophil% 0.5 % (0-1); Eosinophil# 0.24 X10^3/uL; Eosinophils% 5.6 % (0-5); Hematocrit 33.3 % (37-47); Hemoglobin 10.7 g/dL (12.0-15.0); Lymphocyte # 1.35 X10^3/ul (4.0); Lymphocyte % 31.8 % (19-41); Mean Corp Hgb Conc 32.1 g/dL (32-36); Mean Corpuscular Volume 93.3 fL (81-99); Monocyte# 0.36 X10^3/uL; Monocyte% 8.5 % (0-10); NRBC Flagged by Analyzer 0 % (0-5); Neutrophil # 2.26 X10^3/uL (2.7-7.7); Neutrophil % 53.1 % (47-70); Platelet Count 172 K/mm3 (150-450); RBC Distribution Width CV 13.2 % (11.6-14.6); RBC Distribution Width SD 45.1 fl (35.1-43.9); Red Blood Count 3.57 M/mm3 (4.2-5.4); White Blood Count 4.3 K/mm3 (4.4-11.0)
[2020-05-25 05:58] LABS: Anion Gap 6 (5-15); BUN 18 mg/dL (7-18); BUN/Creat Ratio 20.6 RATIO (10-20); Calcium,Total 7.9 mg/dL (8.5-10.1); Chloride 108 mmol/L (98-107); Creatinine, Serum 0.88 mg/dL (0.55-1.02); EST Glomerular Filtration Rate 66 mL/min (>60); Est Glom Filt Rate - Afr Amer 80 mL/min (>60); Estimated Creatinine Clearance 46.14 ml/min; Glucose 98 mg/dL (74-106); Sodium Level 141 mmol/L (136-145)
[2020-05-25] MEDS: APIXABAN 2.5 MG TABLET PO ×2 (08:43→20:56)
[2020-05-25] MEDS: Fluticasone 0.05% 1 SPRAY NASAL.SRY NASAL (08:43)
[2020-05-25] MEDS: Aspirin E.C. 81 MG Tablet PO (08:44)
[2020-05-25] MEDS: amLODIPine 5 MG Tablet PO (08:44)
[2020-05-25] MEDS: Metoprolol Tartrate 100 MG Tablet PO ×2 (08:44→20:56)
[2020-05-25] MEDS: Ceftriaxone 1 GM/50 ML BAG IV (10:11)
[2020-05-25] MEDS: 0.9% Saline Lock 10 ML Syringe IV (10:11)
--- NOTE | 2020-05-25 12:08 | PN_ITS ---
Patient Problems: Active and Suspected Problems (Last Reviewed 05/22/20 @ 12:03 by Sherita Garibay) UTI (urinary tract infection) (Acute) Sepsis (Acute) Encephalopathy acute (Acute) Contusion, buttock (Acute) Strain of muscle, fascia and tendon of lower back, initial encounter (Acute) Fall (Acute) Severe sepsis (Acute) Subjective: Patient seen and examined. She had no complaints. Review of systems otherwise negative. She has remained hemodynamically stable. She is awaiting placement. Vitals/I&O's: Vital Signs Temp Pulse Resp BP Pulse Ox 97.6 F L 108 H 14 132/72 H 96 05/25/20 09:00 05/25/20 11:50 05/25/20 09:00 05/25/20 09:00 05/25/20 09:00 Oxygen Flow Rate (L/min) 2 Oxygen Delivery Method Room Air Weight: 186 lb 4.65 oz Body Mass Index (BMI) 28.3 Intake and Output for Last 24 Hours 05/23/20 05/24/20 05/25/20 23:59 23:59 23:59 Intake Total 3770 / 4020 880 / 880 530 / 530 Output Total 450 / 650 300 / 500 200 / 200 Balance 3320 / 3370 580 / 380 330 / 330 General: Alert, Oriented x3, Cooperative HEENT: Atraumatic, PERRLA, EOMI, Normocephalic Oral: Moist Mucosa Neck: Supple, No JVD, Negative Carotid Bruits Lungs: Clear to auscultation, Normal air movement Cardiovascular: Regular rate, No murmurs Abdomen: Bowel Sounds Present, Soft, Non Tender Extremities: No edema, Capillary Refill Less than 3 Seconds Skin: No rashes, No breakdown Musculoskeletal: No Tenderness to Palpation of Joints or Extremities Neurological: Cranial nerves II-XII grossly intact Psych/Mental Status: Normal Affect, Appropriate, Alert and oriented to time, pl jose, person, mood and affect Microbiology Past 72 Hours 05/22/20 14:25 Urine, Catheterized Urine Culture - Final Escherichia coli 05/22/20 13:30 Blood Culture (Wb) - Anticubital Right Blood Culture - Preliminary No growth in 48 hours. 05/22/20 14:30 Blood Culture (Wb) - Anticubital Left Blood Culture - Preliminary No growth in 48 hours. Laboratory Results 05/25/20 05:26: WBC 4.3 L, RBC 3.57 L, Hgb 10.7 L, Hct 33.3 L, MCV 93.3, MCH 30.0, MCHC 32.1, RDW Std Deviation 45.1 H, RDW Coeff of Dave 13.2, Plt Count 172, MPV 10.0, Immature Gran % (Auto) 0.500, Neut % (Auto) 53.1, Lymph % (Auto) 31.8, [place] % (Auto) 8.5, Eos % (Auto) 5.6 H, Baso % (Auto) 0.5, Absolute Neuts (auto) 2.3, Absolute Lymphs (auto) 1.35, Nucleated RBC % 0 05/25/20 05:26: Sodium 141, Potassium 4.0, Chloride 108 H, Carbon Dioxide 27.0, Anion Gap 6, BUN 18, Creatinine 0.88, Estim Creat Clear Calc 46.14, Est GFR (MDRD) Af Amer 80, Est GFR (MDRD) Non-Af 66, BUN/Creatinine Ratio 20.6 H, Glucose 98, Calcium 7.9 L Current Medications Acetaminophen (Acetaminophen 500 Mg Tablet) 1,000 mg PO Q6H PRN PRN PRN Reason: PAIN 1-10 Albuterol Sulfate (Albuterol 2.5 Mg/3 Ml Vial.Neb.) 2.5 mg INHALATION Q2H PRN PRN PRN Reason: SOB/Wheezing Amlodipine Besylate (Amlodipine 5 Mg Tablet) 5 mg PO DAILY [facility] Last Admin: 05/25/20 08:44 Dose: 5 mg Documented by: Apixaban (Apixaban 2.5 Mg Tablet) 2.5 mg PO BID [facility] Last Admin: 05/25/20 08:43 Dose: 2.5 mg Documented by: Aspirin (Aspirin E.C. 81 Mg Tablet) 81 mg PO DAILY@0800 [facility] Last Admin: 05/25/20 08:44 Dose: 81 mg Documented by: Fluticasone Propionate (Fluticasone 0.05% 1 [place] Nasal.Sry) 1 spray NASAL DAILY [facility] Last Admin: 05/25/20 08:43 Dose: 1 spray Documented by: Ceftriaxone Sodium (Rocephin) 1 gm in 50 mls @ 100 mls/hr IV Q24 [facility] Last Infusion: 05/25/20 10:41 Dose: Infused Documented by: Metoprolol Tartrate (Metoprolol Tartrate 100 Mg Tablet) 100 mg PO BID [facility] Last Admin: 05/25/20 08:44 Dose: 100 mg Documented by: Montelukast Sodium (Montelukast 10 Mg Tablet) 10 mg PO QHS [facility] Last Admin: 05/24/20 21:28 Dose: 10 mg Documented by: Ondansetron HCl (Ondansetron 4 Mg/2 Ml Vial) 4 mg IV Q8H PRN PRN PRN Reason: NAUSEA/VOMITING Psyllium Hydrophilic Mucilloid (Psyllium 1 Packet) 1 packet PO DAILY PRN PRN PRN Reason: Constipation Senna/Docusate Sodium (Senna/Docusate Sodium 1 Tablet) 2 tablet PO BID PRN PRN Reason: Constipation Sodium Chloride (0.9% Saline Lock 10 Ml Syringe) 10 - 40 ml IV UD PRN PRN Reason: SALINE FLUSH Last Admin: 05/25/20 10:11 Dose: 10 ml Documented by: STROKE Vital Signs/Narrative: Vital Signs Temp Pulse Resp BP Pulse Ox 05/25/20 11:50 108 H 05/25/20 09:00 97.6 F L 62 14 132/72 H 96 05/25/20 08:44 62 Medical Necessity - Tobacco Use Smoking Status: Never smoker Tobacco Use: Non-smoker Assessment/Plan All Active Problems (Last Reviewed 05/22/20 @ 12:03 by Sherita Garibay) UTI (urinary tract infection) (Acute) Sepsis (Acute) Encephalopathy acute (Acute) Contusion, buttock (Acute) Strain of muscle, fascia and tendon of lower back, initial encounter (Acute) Fall (Acute) Severe sepsis (Acute) Bronchitis (Resolved) New onset atrial fibrillation (Resolved) URI (upper respiratory infection) (Resolved) #UTI * Urine culture growing E coli. Blood cultures are negative * on IV ceftriaxone; will switch to PO cefdinir #Paroxysmal A. fib: On metoprolol. Also on Eliquis. #DVT prophylaxis: On Eliquis. CODE STATUS DNR CC a no intubation. Disposition: awaiting placement. TCU will have a bed on Monday. Family prefers that she goes to TCU, and would want her kept here till Monday. Inpatient E&M: [id number] Subs Hosp L2
--- NOTE | 2020-05-25 12:57 | CASEMGMT ---
ANNALISA spoke with patient and she confirmed she would like to go to TCU. SW checked and they will have a bed for patient Wed. SW notified patient's daughter, Madeleine. SW will also let patient know. Plan: [facility] TCU Essence JAQUEZ
[2020-05-25] MEDS: Montelukast 10 MG Tablet PO (20:56)
[2020-05-26] VITALS (7 sets, daily range): BP systolic 132–147; BP diastolic 61–70; PULSE 66–79; RESP 16; TEMP 36.5–36.9; O2SAT 94–96
--- NOTE | 2020-05-26 07:41 | PCM.PN.HOSP ---
Patient Problems: Active and Suspected Problems (Last Reviewed 05/22/20 @ 12:03 by Sherita Garibay) UTI (urinary tract infection) (Acute) Sepsis (Acute) Encephalopathy acute (Acute) Contusion, buttock (Acute) Strain of muscle, fascia and tendon of lower back, initial encounter (Acute) Fall (Acute) Severe sepsis (Acute) Subjective: Patient seen and examined. She has no complaints today. She is awaiting placement in TCU. A bed will be available for her on Monday. Vitals/I&O's: Vital Signs Temp Pulse Resp BP Pulse Ox 98.5 F 67 16 137/61 H 94 05/26/20 02:53 05/26/20 03:00 05/26/20 02:53 05/26/20 02:53 05/26/20 02:53 Oxygen Flow Rate (L/min) 2 Oxygen Delivery Method Room Air Weight: 186 lb 1.122 oz Body Mass Index (BMI) 28.3 Intake and Output for Last 24 Hours 05/24/20 05/25/20 05/26/20 23:59 23:59 23:59 Intake Total 880 / 880 890 / 890 Output Total 300 / 500 200 / 200 Balance 580 / 380 690 / 690 General: Alert, Oriented x3, Cooperative HEENT: Atraumatic, PERRLA, EOMI, Normocephalic Oral: Moist Mucosa Neck: Supple, No JVD, Negative Carotid Bruits Lungs: Clear to auscultation, Normal air movement Cardiovascular: Regular rate, No murmurs Abdomen: Bowel Sounds Present, Soft, Non Tender Extremities: No edema, Capillary Refill Less than 3 Seconds Skin: No rashes, No breakdown Musculoskeletal: No Tenderness to Palpation of Joints or Extremities Neurological: Cranial nerves II-XII grossly intact Psych/Mental Status: Normal Affect, Appropriate, Alert and oriented to time, place, person, mood and affect Microbiology Past 72 Hours 05/22/20 14:25 Urine, Catheterized Urine Culture - Final Escherichia coli 05/22/20 13:30 Blood Culture (Wb) - Anticubital Right Blood Culture - Preliminary No growth in 48 hours. 05/22/20 14:30 Blood Culture (Wb) - Anticubital Left Blood Culture - Preliminary No growth in 48 hours. Current Medications Acetaminophen (Acetaminophen 500 Mg Tablet) 1,000 mg PO Q6H PRN PRN PRN Reason: PAIN 1-10 Albuterol Sulfate (Albuterol 2.5 Mg/3 Ml Vial.Neb.) 2.5 mg INHALATION Q2H PRN PRN PRN Reason: SOB/Wheezing Amlodipine Besylate (Amlodipine 5 Mg Tablet) 5 mg PO DAILY [facility] Last Admin: 05/25/20 08:44 Dose: 5 mg Documented by: Apixaban (Apixaban 2.5 Mg Tablet) 2.5 mg PO BID [facility] Last Admin: 05/25/20 20:56 Dose: 2.5 mg Documented by: Aspirin (Aspirin E.C. 81 Mg Tablet) 81 mg PO DAILY@0800 [facility] Last Admin: 05/25/20 08:44 Dose: 81 mg Documented by: Fluticasone Propionate (Fluticasone 0.05% 1 [place] Nasal.Sry) 1 spray NASAL DAILY [facility] Last Admin: 05/25/20 08:43 Dose: 1 spray Documented by: Ceftriaxone Sodium (Rocephin) 1 gm in 50 mls @ 100 mls/hr IV Q24 [facility] Last Infusion: 05/25/20 10:41 Dose: Infused Documented by: Metoprolol Tartrate (Metoprolol Tartrate 100 Mg Tablet) 100 mg PO BID [facility] Last Admin: 05/25/20 20:56 Dose: 100 mg Documented by: Montelukast Sodium (Montelukast 10 Mg Tablet) 10 mg PO QHS [facility] Last Admin: 05/25/20 20:56 Dose: 10 mg Documented by: Ondansetron HCl (Ondansetron 4 Mg/2 Ml Vial) 4 mg IV Q8H PRN PRN PRN Reason: NAUSEA/VOMITING Psyllium Hydrophilic Mucilloid (Psyllium 1 Packet) 1 packet PO DAILY PRN PRN PRN Reason: Constipation Senna/Docusate Sodium (Senna/Docusate Sodium 1 Tablet) 2 tablet PO BID PRN PRN Reason: Constipation Sodium Chloride (0.9% Saline Lock 10 Ml Syringe) 10 - 40 ml IV UD PRN PRN Reason: SALINE FLUSH Last Admin: 05/25/20 10:11 Dose: 10 ml Documented by: Medical Necessity - Tobacco Use Smoking Status: Never smoker Tobacco Use: Non-smoker Assessment/Plan All Active Problems (Last Reviewed 05/22/20 @ 12:03 by Sherita Garibay) UTI (urinary tract infection) (Acute) Sepsis (Acute) Encephalopathy acute (Acute) Contusion, buttock (Acute) Strain of muscle, fascia and tendon of lower back, initial encounter (Acute) Fall (Acute) Severe sepsis (Acute) Bronchitis (Resolved) New onset atrial fibrillation (Resolved) URI (upper respiratory infection) (Resolved) #UTI Urine culture growing E coli. Blood cultures are negative on IV ceftriaxone; will switch to PO cefdinir #Paroxysmal A. fib: On metoprolol. Also on Eliquis. #DVT prophylaxis: On Eliquis. CODE STATUS DNR CC a no intubation. Disposition: awaiting placement. TCU will have a bed on Monday for patient Inpatient E&M: [id number] Subs Hosp L2
[2020-05-26] MEDS: Metoprolol Tartrate 100 MG Tablet PO (08:47)
[2020-05-26] MEDS: Aspirin E.C. 81 MG Tablet PO (08:47)
[2020-05-26] MEDS: amLODIPine 5 MG Tablet PO (08:47)
[2020-05-26] MEDS: Fluticasone 0.05% 1 SPRAY NASAL.SRY NASAL (08:48)
[2020-05-26] MEDS: APIXABAN 2.5 MG TABLET PO (08:48)
[2020-05-26] MEDS: 0.9% Saline Lock 10 ML Syringe IV (10:48)
[2020-05-26] MEDS: Ceftriaxone 1 GM/50 ML BAG IV (11:45)
--- NOTE | 2020-05-26 14:56 | CASEMGMT ---
A bed opened up in TCU. SW notified physician she can sent patient today. Essence DENTON
--- NOTE | 2020-05-26 15:20 | CASEMGMT ---
Addendum entered by Essence Elliott 05/26/20 15:46: Physician is going to discharge patient to TCU today. RN was notified and she notified patient. Essence DENTON Original Note: SW gave patient and her son a list of medical alert systems per their request. SW also told them that a bed opened up in TCU so she may go today. SW told her someone will let her know if we hear back from and she plans sending her today. Plan: d/c to [facility] TCU Essence DENTON
--- NOTE | 2020-05-26 15:40 | DCINST_ITS ---
- Discharge Diagnoses Current Active Problems: Current Active and Chronic Problems (Last Reviewed 05/22/20 @ 12:03 by Sherita Garibay) UTI (urinary tract infection) (Acute) Sepsis (Acute) Encephalopathy acute (Acute) Contusion, buttock (Acute) Strain of muscle, fascia and tendon of lower back, initial encounter (Acute) Fall (Acute) Severe sepsis (Acute) COPD (chronic obstructive pulmonary disease) (Chronic) Elevated blood pressure reading in office with white coat syndrome, without diagnosis of hypertension (Chronic) Paroxysmal atrial fibrillation (Chronic) Essential (primary) hypertension (Chronic) You will use the following diet at home:: Cardiac Your food should be the consistency of: Regular Your liquids should be the consistency of: Regular/Thin Discharge Activity: Return to Normal Activity Weight Bearing Status: Weight bearing as tolerated Call your doctor if you observe: Fever of 101 or Higher, Shortness of breath, Dizziness, Fainting spells Instructions: ED Dysuria, Uncertain Cause (Adult) Allergies/Adverse Reactions: Allergies amoxicillin Allergy (Verified 05/22/20 12:35) Rash cefdinir Allergy (Verified 05/22/20 12:35) Rash clavulanic acid [From Augmentin] Allergy (Verified 05/22/20 12:35) Rash heparin Allergy (Verified 05/22/20 12:35) Rash levofloxacin [From Levaquin] Allergy (Verified 05/22/20 12:35) Rash antibiotic Allergy (Uncoded 05/22/20 12:35) rash Antibiotic for cellulitis Medications to take at Discharge benazepril 20 mg tablet 40 mg PO DAILY 02/02/18 Acetaminophen [Tylenol] 1,000 mg PO Q6H PRN PRN 04/12/18 Aspirin E.C. [Ecotrin] 81 mg PO DAILY@0800 04/12/18 Fluticasone 0.05% [Flonase Nasal [place]] 1 spray NASAL DAILY 06/01/18 metoprolol tartrate 100 mg tablet 100 mg PO BID #180 tab 03/26/20 Amlodipine Besylate [Norvasc] 5 mg PO DAILY 05/22/20 Apixaban [Eliquis] 2.5 mg PO BID 05/22/20 Hydrochlorothiazide [Hctz] 25 mg PO DAILY 05/22/20 Montelukast Sodium 10 mg PO QHS 05/22/20 Primary Care Physician: Care Physician,No Primary [Primary Care Provider] - Test Results: Test results from this visit will be discussed in further detail at your follow- up appointment, if applicable. Proposed Discharge Date: 05/26/20
--- NOTE | 2020-05-26 15:45 | PCM.TXEXTCAR ---
- Diet 05/22/20 16:12 Diet: Cardiac - Heart Healthy Type of Dietary Supplement:: Ensure Enlive Is pt able to select menu?: Yes Diet Comments: 120 ml ensure enlive TID w/ meals - Routine Orders/Code Status Enema Type: Fleetz Enema Frequency: Daily PRN Suppository Type: Dulcolax 10mg Suppository Frequency: Daily PRN O2 Frequency: PRN Keep PO Greater than or Equal to (%): 90 - Therapies Weight Bearing: Weight bearing as tolerated Physical Therapy: Eval and Treat Occupational Therapy: Eval and Treat - Allergies/Procedures Done in Hospital Allergies/Adverse Reactions: Allergies amoxicillin Allergy (Verified 05/22/20 12:35) Rash cefdinir Allergy (Verified 05/22/20 12:35) Rash clavulanic acid [From Augmentin] Allergy (Verified 05/22/20 12:35) Rash heparin Allergy (Verified 05/22/20 12:35) Rash levofloxacin [From Levaquin] Allergy (Verified 05/22/20 12:35) Rash antibiotic Allergy (Uncoded 05/22/20 12:35) rash Antibiotic for cellulitis Procedures: None - Type of Care/Length of Stay Estimated LOS: Convalescent Care Less Than 30 days Type of Care Needed: Skilled Rehab Potential: Good Prognosis: Good - Additional Orders/Day of Discharge Day of Discharge: 05/26/20 - Dietary and Speech Recommendations Dietitian Recommendations/Changes: Will continue cardiac diet as ordered. Will order 120ml ensure enlive TID w/ meals; d/c as PO improves. Encouraged to call RD as needed regarding cardiac diet guidelines provided. - Follow Up Care Primary Care Physician: Care Physician,No Primary [Primary Care Provider] -
--- NOTE | 2020-05-26 16:20 | PHA.DC.MR ---
Pharmacy Service has performed discharge medication reconciliation for this patient. The patient's discharge medication list was reviewed for discrepancies and discrepancies were resolved. Home Medications benazepril 20 mg tablet 40 mg PO DAILY 02/02/18 Acetaminophen [Tylenol] 1,000 mg PO Q6H PRN PRN 04/12/18 Aspirin E.C. [Ecotrin] 81 mg PO DAILY@0800 04/12/18 Fluticasone 0.05% [Flonase Nasal [place]] 1 spray NASAL DAILY 06/01/18 metoprolol tartrate 100 mg tablet 100 mg PO BID #180 tab 03/26/20 Amlodipine Besylate [Norvasc] 5 mg PO DAILY 05/22/20 Apixaban [Eliquis] 2.5 mg PO BID 05/22/20 Hydrochlorothiazide [Hctz] 25 mg PO DAILY 05/22/20 Montelukast Sodium 10 mg PO QHS 05/22/20
--- NOTE | 2020-05-26 16:23 | NURSING ---
report called to TCU for discharge
--- NOTE | 2020-05-26 16:26 | DS.PCM_ITS ---
Discharge Date and Diagnosis - Problem List Patient Problems: Active and Suspected Problems (Last Reviewed 05/22/20 @ 12:03 by Sherita Garibay) UTI (urinary tract infection) (Acute) Sepsis (Acute) Encephalopathy acute (Acute) Contusion, buttock (Acute) Strain of muscle, fascia and tendon of lower back, initial encounter (Acute) Fall (Acute) Severe sepsis (Acute) Date of Admission: 05/22/20 Date of Discharge: 05/26/20 - Primary Discharge Diagnosis Acute Problems: Active Problems (Last Reviewed 05/22/20 @ 12:03 by Sherita Garibay) UTI (urinary tract infection) (Acute) Encephalopathy acute (Acute) Contusion, buttock (Acute) Strain of muscle, fascia and tendon of lower back, initial encounter (Acute) Fall (Acute) - Secondary Discharge Diagnosis Chronic Problems: Chronic Problems (Last Reviewed 05/22/20 @ 12:03 by Sherita Garibay) COPD (chronic obstructive pulmonary disease) (Chronic) Elevated blood pressure reading in office with white coat syndrome, without diagnosis of hypertension (Chronic) Dyspnea on exertion (Chronic) Paroxysmal atrial fibrillation (Chronic) Essential (primary) hypertension (Chronic) Hospital Course and Treatment Imaging Results: Diagnostic Data Brain CT 05/22/20 13:07 IMPRESSION: Chronic involutional changes of the brain. Electronically Signed: Von Branham MD at 14:00 EDT , Service support , Lumbar Spine X-Ray 05/22/20 13:12 IMPRESSION: Degenerative changes of the spine, as detailed above. Electronically Signed: Von Branham MD at 14:20 EDT , Service support , Pelvis X-Ray 05/22/20 13:12 IMPRESSION: Degenerative changes. No fracture is seen. Electronically Signed: Von Branham MD at 14:18 EDT , Service support , Chest X-Ray 05/22/20 13:50 IMPRESSION: Hyperinflation. Stable scarring at the right lung apex as well as both lower lobes. Electronically Signed: Von Branham MD at 14:17 EDT , Service support , Operations: None Procedures: None Summary of Care Provided: Patient is an 84-year-old male with a past medical history as outlined who was admitted with a complaint of confusion. She slid on the floor on the day of admission, in the evening and was unable to get up due to her bad knees. Family said she was not answering her phone so they went to check on her and she was found to be confused and hallucinating. She denied dysuria but complained of frequency, urgency and incontinence of urine. She went to an urgent care center and was diagnosed with UTI. However because of her weakness and confusion, she was sent to the hospital. She was admitted and managed for TIA. She was started on IV ceftriaxone. She was also managed for acute metabolic encephalopathy due to UTI. Lactic acid was 2.8 which was likely due to dehydration and she was hydrated with IV fluids. Her symptoms resolved and she felt much better. She responded to treatment. She was seen by physical therapy and skilled to go to a rehab facility. Blood and urine cultures grew E. coli. She received 5 days of IV ceftriaxone. She remained stable and was discharged to SNF on 05/26/2020. She is to follow-up with her primary care doctor in 1 to 2 weeks. Patient seen and examined prior to discharge. She felt well and had no complaints and was working with physical therapy at time of review. Review of systems otherwise negative. Labs and vitals reviewed. Home medication reviewed and reconciled. O/E: Vital Signs Temp Pulse Resp BP Pulse Ox 98.1 F 66 16 132/66 H 94 05/26/20 15:05 05/26/20 15:05 05/26/20 15:05 05/26/20 15:05 05/26/20 15:05 General: Alert, Oriented x3, Cooperative HEENT: Atraumatic, PERRLA, EOMI, Normocephalic Oral: Moist Mucosa Neck: Supple, No JVD, Negative Carotid Bruits Lungs: Clear to auscultation, Normal air movement Cardiovascular: Regular rate, No murmurs Abdomen: Bowel Sounds Present, Soft, Non Tender Extremities: No edema, Capillary Refill Less than 3 Seconds Skin: No rashes, No breakdown Musculoskeletal: No Tenderness to Palpation of Joints or Extremities Neurological: Cranial nerves II-XII grossly intact Psych/Mental Status: Normal Affect, Appropriate, Alert and oriented to time, nazario ce, person, mood and affect Plan is for discharge to SNF today. Patient Problems: Active and Suspected Problems (Last Reviewed 05/22/20 @ 12:03 by Sherita chaudhari) UTI (urinary tract infection) (Acute) Sepsis (Acute) Encephalopathy acute (Acute) Contusion, buttock (Acute) Strain of muscle, fascia and tendon of lower back, initial encounter (Acute) Fall (Acute) Severe sepsis (Acute) - Physical Exam Vitals/I&O's: Vital Signs Temp Pulse Resp BP Pulse Ox 98.1 F 66 16 132/66 H 94 05/26/20 15:05 05/26/20 15:05 05/26/20 15:05 05/26/20 15:05 05/26/20 15:05 Oxygen Flow Rate (L/min) 2 Oxygen Delivery Method Room Air Weight: 186 lb 1.122 oz Body Mass Index (BMI) 28.3 Intake and Output for Last 24 Hours 05/24/20 05/25/20 05/26/20 23:59 23:59 23:59 Intake Total 880 / 880 890 / 890 350 / 350 Output Total 300 / 500 200 / 200 Balance 580 / 380 690 / 690 350 / 350 Microbiology Past 72 Hours 05/26/20 15:40 Mucosa - Nose SARS-CoV-2 Antigen (Rapid) - Final 05/22/20 14:25 Urine, Catheterized Urine Culture - Final Escherichia coli 05/22/20 13:30 Blood Culture (Wb) - Anticubital Right Blood Culture - Preliminary No growth in 48 hours. 05/22/20 14:30 Blood Culture (Wb) - Anticubital Left Blood Culture - Preliminary No growth in 48 hours. Current Medications Acetaminophen (Acetaminophen 500 Mg Tablet) 1,000 mg PO Q6H PRN PRN PRN Reason: PAIN 1-10 Albuterol Sulfate (Albuterol 2.5 Mg/3 Ml Vial.Neb.) 2.5 mg INHALATION Q2H PRN PRN PRN Reason: SOB/Wheezing Amlodipine Besylate (Amlodipine 5 Mg Tablet) [address] [facility] Last Admin: 05/26/20 08:47 Dose: 5 mg Documented by: Apixaban (Apixaban 2.5 Mg Tablet) 2.[address] [facility] Last Admin: 05/26/20 08:48 Dose: 2.5 mg Documented by: Aspirin (Aspirin E.C. 81 Mg Tablet) 81 mg PO DAILY@0800 [facility] Last Admin: 05/26/20 08:47 Dose: 81 mg Documented by: Fluticasone Propionate (Fluticasone 0.05% 1 [place] Nasal.Sry) [address] [facility] Last Admin: 05/26/20 08:48 Dose: 1 spray Documented by: Metoprolol Tartrate (Metoprolol Tartrate 100 Mg Tablet) [address] [facility] Last Admin: 05/26/20 08:47 Dose: 100 mg Documented by: Montelukast Sodium (Montelukast 10 Mg Tablet) [address] [facility] Last Admin: 05/25/20 20:56 Dose: 10 mg Documented by: Nystatin (Nystatin Powder 15gm Bottle) [address] [facility]; Protocol Ondansetron HCl (Ondansetron 4 Mg/2 Ml Vial) 4 mg IV Q8H PRN PRN PRN Reason: NAUSEA/VOMITING Psyllium Hydrophilic Mucilloid (Psyllium 1 Packet) 1 packet PO DAILY PRN PRN PRN Reason: Constipation Senna/Docusate Sodium (Senna/Docusate Sodium 1 Tablet) 2 tablet PO BID PRN PRN Reason: Constipation Sodium Chloride (0.9% Saline Lock 10 Ml Syringe) 10 - 40 ml IV UD PRN PRN Reason: SALINE FLUSH Last Admin: 05/26/20 10:48 Dose: 10 ml Documented by: Discharge Diet: Low fat/ Low Cholesterol Discharge Activity: Return to Normal Activity Weight Bearing Status: Weight bearing as tolerated Call your doctor if you observe: Fever of 101 or Higher, Shortness of breath, Dizziness, Fainting spells Home Medications: Medications to take at Discharge benazepril 20 mg tablet 40 mg PO DAILY 02/02/18 Acetaminophen [Tylenol] 1,000 mg PO Q6H PRN PRN 04/12/18 Aspirin E.C. [Ecotrin] 81 mg PO DAILY@0800 04/12/18 Fluticasone 0.05% [Flonase Nasal [place]] 1 spray NASAL DAILY 06/01/18 metoprolol tartrate 100 mg tablet 100 mg PO BID #180 tab 03/26/20 Amlodipine Besylate [Norvasc] 5 mg PO DAILY 05/22/20 Apixaban [Eliquis] 2.5 mg PO BID 05/22/20 Hydrochlorothiazide [Hctz] 25 mg PO DAILY 05/22/20 Montelukast Sodium 10 mg PO QHS 05/22/20 Primary Care Physician: Care Physician,No Primary [Primary Care Provider] - Patient Instructions: ED Dysuria, Uncertain Cause (Adult) Disposition: Halfway facility Minutes spent on discharge:: 35 Patient Condition:: Stable Medical Necessity - Tobacco Use Smoking Status: Never smoker Tobacco Use: Non-smoker Meaningful Use Info Meaningful Use Diagnoses (Choose all that apply): None applicable Inpatient E&M: [id number] [facility]
== END 2020-05-26 17:46 | disposition skilled nursing facility (03) | DRG 689 ==
LOC: ED 15:12 → ICU 15:17 → PCU 18:17
PROVIDERS: Admitting Provider Internal Medicine; Emergency Provider Emergency Medicine; Visit Provider Student in an Organized Health Care Education/Training Program
DX: N39.0 Urinary tract infection, site not specified (principal); G93.41 Metabolic encephalopathy; E87.2 Acidosis; S30.0XXA Contusion of lower back and pelvis, initial encounter; S39.012A Strain of muscle, fascia and tendon of lower back, initial encounter; W18.30XA Fall on same level, unspecified, initial encounter; Y93.89 Activity, other specified; Y92.003 Bedroom of unspecified non-institutional (private) residence as the place of occurrence of the external cause; Y99.8 Other external cause status; E66.9 Obesity, unspecified; Z68.31 Body mass index [BMI] 31.0-31.9, adult; E86.0 Dehydration; I10 Essential (primary) hypertension; I48.0 Paroxysmal atrial fibrillation; Z66 Do not resuscitate; Z79.02 Long term (current) use of antithrombotics/antiplatelets; Z79.899 Other long term (current) drug therapy; B96.20 Unspecified Escherichia coli [E. coli] as the cause of diseases classified elsewhere
CPT/HCPCS: 36415; 70450; 71045; 72100; 72170; 80048; 80053; 81001; 82550; 83605; 84484; 85025; 85610; 85730; 87040; 87077; 87086; 87088; 87186; 87426; 93005; 97110; 97162; 97166; 97530; 97535; 97802; 99251; 99285; J7030; J7050; P9612; A4216; G0463

== ENCOUNTER → 2020-05-22 | Outpatient (CLI) | payer MEDICARE, OTHER, SELFPAY ==
[2020-05-22 12:31] VITALS: BMI 31.9
[2020-05-22 16:04] LABS: Mucous, Urine 0 SEEN /hpf (<or=2+)
[2020-05-22 16:18] LABS: Color, Urine Yellow (Yellow); Glucose, Dipstick Normal (Normal); Ketone-Dipstick 15 mg/dl (Negative); Leukocyte Esterase-Dipstick 500 /ul (Negative); Nitrite-Dipstick Positive (Negative); Occult Blood-Urine 25 /ul (Negative); Protein-Dipstick 15 mg/dl (Negative); Specific Gravity, Urine 1.025 (1.002-1.030); Urine Bilirubin Dipstick Negative (Negative); Urine Clarity Sl. Cloudy (Clear); Urine Urobilinogen Normal (Normal)
[2020-05-22 16:34] LABS: Amorphous Sediment 1+ URATE; Bacteria 1+ /hpf (None Seen); Red Blood Cells-Urine 0-5 SEEN /hpf (0-5); Squamous Epithelial Cells - UA 0-5 SEEN /hpf (5-10); White Blood Cells 10-25 SEEN /hpf (0-5)
== END | disposition home or self-care (01) ==
LOC: LABSPEC 15:40
PROVIDERS: Visit Provider Physician Assistant Medical
DX: N39.0 Urinary tract infection, site not specified (principal); R82.90 Unspecified abnormal findings in urine
CPT/HCPCS: 81001; 87077; 87086; 87088; 87186

== ENCOUNTER 2020-05-26 17:46 | Inpatient (IN) | payer MEDICARE, OTHER, SELFPAY ==
[2020-05-22 16:15] VITALS: BMI 28.3
[2020-05-26 18:01] VITALS: BP 138/68; PULSE 76; RESP 18; TEMP 36.2; O2SAT 94
[2020-05-26 18:02] VITALS: BMI 30.9
[2020-05-26 18:05] VITALS: BMI 31.0
[2020-05-26] MEDS: Montelukast 10 MG Tablet PO (20:31)
[2020-05-26] MEDS: Menthol/Lanolin/Calamine/Znox 113 GM Tube 1 APPLIC TOPICAL (20:32)
[2020-05-26] MEDS: Nystatin Powder 15gm Bottle 1 APPLIC TOPICAL (20:32)
[2020-05-26] MEDS: APIXABAN 2.5 MG TABLET PO (20:39)
[2020-05-26 20:40] VITALS: PULSE 80
[2020-05-26] MEDS: Metoprolol Tartrate 100 MG Tablet PO (20:40)
--- NOTE | 2020-05-26 20:54 | HP.PCM_ITS ---
Problem List (1) Debility Status: Acute (2) Bacteremia Status: Acute (3) Atrial fibrillation and flutter Status: Chronic (4) Allergic rhinitis Status: Chronic (5) UTI (urinary tract infection) Status: Acute Qualifiers: (6) Encephalopathy acute Status: Acute (7) Fall Status: Acute (8) COPD (chronic obstructive pulmonary disease) Status: Chronic Qualifiers: (9) Hypertension Status: Chronic History of Present Illness Date of Admission: 05/26/20 Chief Complaint: Here for rehabilitation, strengthening, prior to discharge home alone. 05/22/2020 The patient is a 84 year old Female with below past medical history presented to [facility] Emergency Department with fall. 05/22/2020 CT brain chronic involutional changes of brain. 05/22/2020 EKG normal sinus rhythm, non-specific ST&T wave abnormality. 05/22/2020 X-ray lumbosacral spine showed degenerative changes of spine. 05/22/2020 X-ray pelvis showed degenerative changes. 05/22/2020 Chest X-ray showed hyperinflation, stable scarring right lung apex, bilateral lower lobes. Confusion, weakness, fall. Unable to get up due to bad knees. Diagnosed with UTI at urgent care, but due to fall, confusion, referred to [facility] Emergency Department. Mentation waxing, waning. Family noted patient was hallucinating. Lactic acid 2.8. Rocephin, IV Fluids given for UTI, rule out sepsis. 05/22/2020 Admit to Hospital. Rocephin IV for UTI, Blood culture pending, Urine culture pending. Encephalopathy improving. IV Fluids for dehydration. Hold Benazepril HCTZ for dehydration. PT[facility]OT [facility]. Blood cultures AND urine cultures grew E. Coli. 05/26/2020 Admit to TCU with debility, here for rehabilitation, strengthening, prior to discharge home alone. Past Medical History Past Medical History (Chronic Problems): Chronic Problems (Last Reviewed 05/22/20 @ 12:03 by Sherita Garibay) Atrial fibrillation and flutter (Chronic) Allergic rhinitis (Chronic) Hypertension (Chronic) COPD (chronic obstructive pulmonary disease) (Chronic) Elevated blood pressure reading in office with white coat syndrome, without diagnosis of hypertension (Chronic) Dyspnea on exertion (Chronic) Paroxysmal atrial fibrillation (Chronic) Essential (primary) hypertension (Chronic) Medical History: Medical History (Last Reviewed 05/22/20 @ 12:03 by Sherita Garibay) COPD (chronic obstructive pulmonary disease) (Chronic) J44.9 Elevated blood pressure reading in office with white coat syndrome, without diagnosis of hypertension (Chronic) R03.0 Paroxysmal atrial fibrillation (Chronic) I48.0 Essential (primary) hypertension (Chronic) I10 Basal cell carcinoma C44.91 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 Lung nodule seen on imaging study R91.1 Obesity E66.9 Arm fracture S42.309A Atrial fibrillation with RVR Onset Date: 04/13/18 I48.91 Fracture, rib S22.39XA New onset atrial fibrillation (Resolved) I48.91 Fatigue R53.83 Shortness of breath R06.02 Allergies amoxicillin Allergy (Verified 05/22/20 12:35) Rash cefdinir Allergy (Verified 05/22/20 12:35) Rash clavulanic acid [From Augmentin] Allergy (Verified 05/22/20 12:35) Rash heparin Allergy (Verified 05/22/20 12:35) Rash levofloxacin [From Levaquin] Allergy (Verified 05/22/20 12:35) Rash antibiotic Allergy (Uncoded 05/22/20 12:35) rash Antibiotic for cellulitis Home Medications: Ambulatory Orders Medication Instructions Recorded benazepril 20 mg tablet 40 mg PO DAILY 02/02/18 Acetaminophen [Tylenol] 1,000 mg PO Q6H PRN PRN 04/12/18 Aspirin E.C. [Ecotrin] 81 mg PO DAILY@0800 04/12/18 Fluticasone 0.05% [Flonase Nasal 1 spray NASAL DAILY 06/01/18 [place]] metoprolol tartrate 100 mg tablet 100 mg PO BID #180 tab 03/26/20 Amlodipine Besylate [Norvasc] 5 mg PO DAILY 05/22/20 Apixaban [Eliquis] 2.5 mg PO BID 05/22/20 Hydrochlorothiazide [Hctz] 25 mg PO DAILY 05/22/20 Montelukast Sodium 10 mg PO QHS 05/22/20 Surgical History: Surgical History (Last Reviewed 05/22/20 @ 12:03 by Sherita Garibay) H/O basal cell carcinoma excision Z98.890, Z85.828 History of vein stripping Z98.890 Surgical History: total knee arthroplasty - left, tonsillectomy, - - She reported that the cancer (basal cell cancer) mole was removed from her face. 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 Lives: Alone Smoking Status: Never smoker Tobacco Use: Non-smoker Alcohol: None Drugs: None - *Family History Maternal Family History: Family History (Last Reviewed 05/22/20 @ 12:03 by Sherita Garibay) Father Cancer History Items: Dementia Paternal Family History: Family History (Last Reviewed 05/22/20 @ 12:03 by Sherita Garibay) Father Cancer History Items: Cancer Review of Systems Constitutional: Denies: Chills, Fever, Weight Change HEENT: Denies: Head Aches, Sinus Congestion, Sinus Drainage Cardiovascular: Denies: Chest Pain, Palpitations Respiratory: Denies: Cough, Shortness of breath at rest, Sputum production Gastrointestinal: Denies: Abdominal Pain, Nausea, Vomiting Genitourinary: Denies: Dysuria Musculoskeletal: Denies: Joint Pain, Joint Tenderness Skin: Denies: Rash, Wounds Neurological: Denies: Numbness, Tingling, Focal weakness Psychiatric: Denies: Anxiety, Depression, Homicidal Ideations, Suicidal Ideations Hematologic/ Lymphatic: Denies: Easy Bruising, Easy Bleeding VTE Information - Inpt Only VTE Present on Admission: No VTE Mechan Device Prophylaxis: Knee High CORI Hose VTE Pharm Prophylaxis ordered?: No Reason prophylaxis not ordered:: Treatment Not Indicated Patient Problems: Active and Suspected Problems (Last Reviewed 05/22/20 @ 12:03 by Sherita Garibay) UTI (urinary tract infection) (Acute) Encephalopathy acute (Acute) Fall (Acute) Debility (Acute) Bacteremia (Acute) - Physical Exam Vitals/I&O's: Vital Signs Temp Pulse Resp BP Pulse Ox 97.2 F L 80 18 138/68 H 94 05/26/20 18:01 05/26/20 20:40 05/26/20 18:01 05/26/20 18:01 05/26/20 18:01 Oxygen Delivery Method Room Air Weight: 84.482 kg Body Mass Index (BMI) 30.9 General: Alert, Oriented x3, Cooperative HEENT: Atraumatic, PERRLA, EOMI, Normocephalic Neck: Supple, No JVD, Negative Carotid Bruits Lungs: Clear to auscultation, Normal air movement Cardiovascular: Regular rate, No murmurs Abdomen: Bowel Sounds Present, Soft, Non Tender Extremities: No edema, Capillary Refill Less than 3 Seconds Skin: No rashes, No breakdown Musculoskeletal: No Tenderness to Palpation of Joints or Extremities Neurological: Cranial nerves II-XII grossly intact Psych/Mental Status: Normal Affect, Appropriate Current Medications Acetaminophen (Acetaminophen 500 Mg Tablet) 1,000 mg PO Q6H PRN PRN PRN Reason: PAIN 1-12/13 Amlodipine Besylate (Amlodipine 5 Mg Tablet) 5 mg PO DAILY [facility] Apixaban (Apixaban 2.5 Mg Tablet) 2.5 mg PO BID [facility] Last Admin: 05/26/20 20:39 Dose: 2.5 mg Documented by: Aspirin (Aspirin E.C. 81 Mg Tablet) 81 mg PO DAILY@0800 [facility] Bisacodyl (Bisacodyl 10 Mg Suppository) 10 mg RC DAILY PRN PRN Reason: Constipation Calamine/Phenol (Menthol/Lanolin/Calamine/Znox 113 Gm Tube) 1 applic TOPICAL TID [facility]; Protocol Last Admin: 05/26/20 20:32 Dose: 1 applic Documented by: Fluticasone Propionate (Fluticasone 0.05% 1 [place] Nasal.Sry) 1 spray NASAL DAILY [facility] Hydrochlorothiazide (Hydrochlorothiazide 25 Mg Tablet) 25 mg PO DAILY [facility] Lisinopril (Lisinopril 40 Mg Tablet) 40 mg PO DAILY [facility] Metoprolol Tartrate (Metoprolol Tartrate 100 Mg Tablet) 100 mg PO BID [facility] Last Admin: 05/26/20 20:40 Dose: 100 mg Documented by: Montelukast Sodium (Montelukast 10 Mg Tablet) 10 mg PO QHS [facility] Last Admin: 05/26/20 20:31 Dose: 10 mg Documented by: Nutritional Formula (Lactose Free) (Ensure Enlive 120 Ml Liquid) 120 ml PO TID [facility] Last Admin: 05/26/20 20:28 Dose: 120 ml Documented by: Nystatin (Nystatin Powder 15gm Bottle) 1 applic TOPICAL BID@0600,2200 [facility]; Protocol Last Admin: 05/26/20 20:32 Dose: 1 applic Documented by: Tuberculin PPD (Tuberculin,Purif.Prot.Deriv. 50 Tu/Ml Vial) 5 tu ID [id number] ONE Stop: 05/27/20 10:01 Tuberculin PPD (Tuberculin,Purif.Prot.Deriv. 50 Tu/Ml Vial) 5 tu ID [id number] ONE Stop: 06/03/20 10:01 Assessment/Plan All Active Problems (Last Reviewed 05/22/20 @ 12:03 by Sherita Garibay) UTI (urinary tract infection) (Acute) Sepsis (Acute) Encephalopathy acute (Acute) Contusion, buttock (Acute) Strain of muscle, fascia and tendon of lower back, initial encounter (Acute) Fall (Acute) Severe sepsis (Acute) Debility (Acute) Bacteremia (Acute) Hypertension after donor nephrectomy requiring medication (Acute) Bronchitis (Resolved) New onset atrial fibrillation (Resolved) URI (upper respiratory infection) (Resolved) 84 year old female with below past medical history hospitalized for encephalopathy secondary to urinary tract infection, E. Coli bacteremia, complicated by dehydration, admitted to TCU with debility, here for rehabilitation, strengthening, prior to discharge home alone. * Debility - PT/OT. * Pain - Tylenol 1000MG Q6H PRN pain (1-10). * Bowel - Miralax 17GM daily, Senna/colace 1 tablet BID, MOM 30ML daily PRN, Dulcolax 10MG [place] daily PRN. * Adult immunization - Administer Prevnar 13, Pneumovax 23, Fluzone, COVID 19 vaccine. * DVT prophylaxis - Not necessary, already anticoagulated. * Hypertension - Metoprolol 100MG BID, Lisinopril 40MG daily, HCTZ 25MG daily, Amlodipine 5MG daily. * Atrial Fibrillation - Metoprolol 100MG BID, Eliquis 2.5MG BID. * CV prophylaxis - Aspirin 81MG daily. * Nutrition - Ensure Enlive 120ML TID. * Allergic Rhinitis - Flonase nasal spray 1 spray daily, Singulair 10MG QHS. * Skin irritation - Calmoseptine topical TID. * Tinea Corporis - Nystatin powder topical BID.
[2020-05-27 05:23] VITALS: BP 153/77; PULSE 67; RESP 18; TEMP 37.1; O2SAT 93
[2020-05-27] MEDS: APIXABAN 2.5 MG TABLET PO ×2 (05:25→16:54)
[2020-05-27] MEDS: Menthol/Lanolin/Calamine/Znox 113 GM Tube 1 APPLIC TOPICAL ×3 (05:25→21:06)
[2020-05-27] MEDS: hydroCHLOROthiazide 25 MG Tablet PO (05:26)
[2020-05-27 05:27] VITALS: PULSE 67
[2020-05-27] MEDS: Polyethylene Glycol 3350 17 GM PACKET PO (05:27)
[2020-05-27] MEDS: Metoprolol Tartrate 100 MG Tablet PO ×2 (05:27→16:53)
[2020-05-27] MEDS: Nystatin Powder 15gm Bottle 1 APPLIC TOPICAL ×2 (05:27→21:06)
[2020-05-27] MEDS: amLODIPine 5 MG Tablet PO (05:28)
[2020-05-27] MEDS: Senna/Docusate Sodium 1 Tablet PO ×2 (05:28→16:53)
[2020-05-27] MEDS: Lisinopril 40 MG Tablet PO (05:28)
[2020-05-27] MEDS: Fluticasone 0.05% 1 SPRAY NASAL.SRY NASAL (05:30)
[2020-05-27 05:50] LABS: Absolute Lymphocyte Count 1.09 X10^3/uL (0.83-4.51); Absolute Neutrophil Count 3.2 X10^3/uL (2.0-7.7); Basophil# 0.02 X10^3/uL; Basophil% 0.4 % (0-1); Hematocrit 34.4 % (37-47); Hemoglobin 11.5 g/dL (12.0-15.0); Lymphocyte # 1.09 X10^3/ul (4.0); Lymphocyte % 21.9 % (19-41); Mean Corp Hgb Conc 33.4 g/dL (32-36); Mean Corpuscular Hgb 31.3 pg (27.0-32.0); Mean Corpuscular Volume 93.7 fL (81-99); Mean Platelet Vol. 10.1 fl (6.2-12.0); Monocyte# 0.46 X10^3/uL; Monocyte% 9.2 % (0-10); NRBC Flagged by Analyzer 0 % (0-5); Neutrophil # 3.19 X10^3/uL (2.7-7.7); Neutrophil % 64.1 % (47-70); Platelet Count 197 K/mm3 (150-450); RBC Distribution Width CV 13.2 % (11.6-14.6); RBC Distribution Width SD 44.8 fl (35.1-43.9); Red Blood Count 3.67 M/mm3 (4.2-5.4)
[2020-05-27 06:11] LABS: Anion Gap 5 (5-15); BUN 14 mg/dL (7-18); BUN/Creat Ratio 16.4 RATIO (10-20); Calcium,Total 8.7 mg/dL (8.5-10.1); Chloride 107 mmol/L (98-107); Creatinine, Serum 0.86 mg/dL (0.55-1.02); EST Glomerular Filtration Rate 67 mL/min (>60); Est Glom Filt Rate - Afr Amer 82 mL/min (>60); Estimated Creatinine Clearance 45.38 ml/min; Glucose 94 mg/dL (74-106); Potassium 4.3 mmol/L (3.5-5.1); Sodium Level 140 mmol/L (136-145)
[2020-05-27] MEDS: Aspirin E.C. 81 MG Tablet PO (07:54)
--- NOTE | 2020-05-27 09:35 | CASEMGMT ---
Social Work Code status reviewed, pt confirms is a full code. MOLST form reviewed, communication to physician, form placed in chart. YANIRA Cortes
[2020-05-27] MEDS: Tuberculin,Purif.prot.deriv. 50 TU/ML Vial 5 ML ID (11:04)
[2020-05-27 13:46] VITALS: BP 151/72; PULSE 62; RESP 16; TEMP 36.1; O2SAT 95
--- NOTE | 2020-05-27 14:03 | PCM.PN.RX ---
<Veena Roman - Last Filed: 05/27/20 14:03> Progress Note - Pharmacy Subjective: TCU Admission Objective: Allergies amoxicillin Allergy (Verified 05/22/20 12:35) Rash cefdinir Allergy (Verified 05/22/20 12:35) Rash clavulanic acid [From Augmentin] Allergy (Verified 05/22/20 12:35) Rash heparin Allergy (Verified 05/22/20 12:35) Rash levofloxacin [From Levaquin] Allergy (Verified 05/22/20 12:35) Rash antibiotic Allergy (Uncoded 05/22/20 12:35) rash Antibiotic for cellulitis Current Medications Generic Name Dose Route Start Last Admin Trade Name Freq PRN Reason Stop Dose Admin Acetaminophen 1,000 mg 05/26/20 18:12 Acetaminophen 500 Mg Tablet PO Q6H PRN PRN PAIN 1-10/10 Amlodipine Besylate 5 mg 05/27/20 06:00 05/27/20 05:28 Amlodipine 5 Mg Tablet PO 5 mg DAILY GINNY Administration Apixaban 2.5 mg 05/27/20 06:00 05/27/20 05:25 Apixaban 2.5 Mg Tablet PO 2.5 mg BID GINNY Administration Aspirin 81 mg 05/27/20 08:00 05/27/20 07:54 Aspirin E.C. 81 Mg Tablet PO 81 mg DAILY@0800 GINNY Administration Bisacodyl 10 mg 05/26/20 18:21 Bisacodyl 10 Mg Suppository RC DAILY PRN Constipation Calamine/Phenol 1 applic 05/26/20 22:00 05/27/20 05:25 Menthol/Lanolin/Calamine/Znox 113 Gm Tube TOPICAL 1 applic TID GINNY Administration Protocol Fluticasone Propionate 1 spray 05/27/20 06:00 05/27/20 05:30 Fluticasone 0.05% 1 [place] Nasal.Sry NASAL 1 spray DAILY GINNY Administration Hydrochlorothiazide 25 mg 05/27/20 06:00 05/27/20 05:26 Hydrochlorothiazide 25 Mg Tablet PO 25 mg DAILY GINNY Administration Lisinopril 40 mg 05/27/20 06:00 05/27/20 05:28 Lisinopril 40 Mg Tablet PO 40 mg DAILY GINNY Administration Magnesium Hydroxide 30 ml 05/26/20 21:10 Magnesium Hydroxide 30 Ml Udc PO DAILY PRN Constipation Metoprolol Tartrate 100 mg 05/27/20 06:00 05/27/20 05:27 Metoprolol Tartrate 100 Mg Tablet PO 100 mg BID GINNY Administration Montelukast Sodium 10 mg 05/26/20 22:00 05/26/20 20:31 Montelukast 10 Mg Tablet PO 10 mg QHS GINNY Administration Nystatin 1 applic 05/26/20 22:00 05/27/20 05:27 Nystatin Powder 15gm Bottle TOPICAL 1 applic BID@0600,2200 GINNY Administration Protocol Polyethylene Glycol 17 gm 05/27/20 06:00 05/27/20 05:27 Polyethylene Glycol 3350 17 Gm Packet PO 17 gm DAILY GINNY Administration Senna/Docusate Sodium 1 tablet 05/27/20 06:00 05/27/20 05:28 Senna/Docusate Sodium 1 Tablet PO 1 tablet BID GINNY Administration Tuberculin PPD 5 tu 06/03/20 10:00 Tuberculin,Purif.Prot.Deriv. 50 Tu/Ml Vial ID 06/03/20 10:01 X1 ONE Problem List (Last Reviewed 05/22/20 @ 12:03 by Sherita Garibay) UTI (urinary tract infection) (Acute) Encephalopathy acute (Acute) Fall (Acute) Debility (Acute) Bacteremia (Acute) Atrial fibrillation and flutter (Chronic) Allergic rhinitis (Chronic) Hypertension (Chronic) COPD (chronic obstructive pulmonary disease) (Chronic) Vital Signs Temp Pulse Resp BP Pulse Ox 96.9 F L 62 16 151/72 H 95 05/27/20 13:46 05/27/20 13:46 05/27/20 13:46 05/27/20 13:46 05/27/20 13:46 Oxygen Delivery Method Nasal Cannula Weight: 84.482 kg Body Mass Index (BMI) 30.9 Sodium 140 mmol/L (136-145) 05/27/20 05:20 Potassium 4.3 mmol/L (3.5-5.1) 05/27/20 05:20 Chloride 107 mmol/L (98-107) 05/27/20 05:20 Carbon Dioxide 28.0 mmol/L (21.0-32.0) 05/27/20 05:20 Anion Gap 5 (5-15) 05/27/20 05:20 BUN 14 mg/dL (7-18) 05/27/20 05:20 Creatinine 0.86 mg/dL (0.55-1.02) 05/27/20 05:20 Est GFR (MDRD) Af Amer 82 mL/min (>60) 05/27/20 05:20 Est GFR (MDRD) Non-Af 67 mL/min (>60) 05/27/20 05:20 BUN/Creatinine Ratio 16.4 RATIO (10-20) 05/27/20 05:20 Glucose 94 mg/dL (74-106) 05/27/20 05:20 Assessment/Plan: 1. Pain: acetaminophen 1000mg PO Q6H PRN pain 1-10. Please continue to monitor for pain and PRN usage. *2. Hypertension/atrial fibrillation: metoprolol tartrate 100mg PO BID, lisinopril 40mg PO daily, hydrochlorothiazide 25mg PO daily, amlodipine 5mg PO daily, apixaban 2.5mg PO BID. Please continue to monitor BP (last 151/72), HR (last 62), renal function, potassium (last 4.3mmol/L), swelling, S/S of bleeding, and hemoglobin (last 11.5g/dL). Based on patient's weight >60kg and SCr <1.5mg/dL, patient is eligible for apixaban 5mg PO BID. Please consider increasing dose to 5mg if clinically appropriate. 3. CV prophylaxis: aspirin 81mg PO daily. Please continue to monitor for S/S of bleeding and hemoglobin. 4. Allergic rhinitis: montelukast 10mg PO daily and fluticasone 0.05% nasal spray 1 spray nasally daily. Please continue to monitor for S/S of allergies. Psychotropic Medications: None Unnecessary Medications: None Bowel Regimen: Miralax 17gm PO daily, senna/docusate 1T PO BID, MOM 30mL PO daily PRN constipation and bisacodyl 10mg RC daily PRN constipation. Please continue to monitor for constipation and PRN usage. Date of Note:: 05/27/20 - Provider Comments Provider responsibility: Provider responsible to enter orders to implement recommendations <Remy Champagne Chi - Last Filed: 05/27/20 17:09> Progress Note - Pharmacy Subjective: [] Objective: Allergies amoxicillin Allergy (Verified 05/22/20 12:35) Rash cefdinir Allergy (Verified 05/22/20 12:35) Rash clavulanic acid [From Augmentin] Allergy (Verified 05/22/20 12:35) Rash heparin Allergy (Verified 05/22/20 12:35) Rash levofloxacin [From Levaquin] Allergy (Verified 05/22/20 12:35) Rash antibiotic Allergy (Uncoded 05/22/20 12:35) rash Antibiotic for cellulitis Current Medications Generic Name Dose Route Start Last Admin Trade Name Freq PRN Reason Stop Dose Admin Acetaminophen 1,000 mg 05/26/20 18:12 Acetaminophen 500 Mg Tablet PO Q6H PRN PRN PAIN 1-10/10 Amlodipine Besylate 5 mg 05/27/20 06:00 05/27/20 05:28 Amlodipine 5 Mg Tablet PO 5 mg DAILY GINNY Administration Apixaban 2.5 mg 05/27/20 06:00 05/27/20 16:54 Apixaban 2.5 Mg Tablet PO 2.5 mg BID GINNY Administration Aspirin 81 mg 05/27/20 08:00 05/27/20 07:54 Aspirin E.C. 81 Mg Tablet PO 81 mg DAILY@0800 GINNY Administration Bisacodyl 10 mg 05/26/20 18:21 Bisacodyl 10 Mg Suppository RC DAILY PRN Constipation Calamine/Phenol 1 applic 05/26/20 22:00 05/27/20 16:53 Menthol/Lanolin/Calamine/Znox 113 Gm Tube TOPICAL 1 applic TID GINNY Administration Protocol Fluticasone Propionate 1 spray 05/27/20 06:00 05/27/20 05:30 Fluticasone 0.05% 1 [place] Nasal.Sry NASAL 1 spray DAILY GINNY Administration Hydrochlorothiazide 25 mg 05/27/20 06:00 05/27/20 05:26 Hydrochlorothiazide 25 Mg Tablet PO 25 mg DAILY GINNY Administration Lisinopril 40 mg 05/27/20 06:00 05/27/20 05:28 Lisinopril 40 Mg Tablet PO 40 mg DAILY GINNY Administration Magnesium Hydroxide 30 ml 05/26/20 21:10 Magnesium Hydroxide 30 Ml Udc PO DAILY PRN Constipation Metoprolol Tartrate 100 mg 05/27/20 06:00 05/27/20 16:53 Metoprolol Tartrate 100 Mg Tablet PO 100 mg BID GINNY Administration Montelukast Sodium 10 mg 05/26/20 22:00 05/26/20 20:31 Montelukast 10 Mg Tablet PO 10 mg QHS GINNY Administration Nystatin 1 applic 05/26/20 22:00 05/27/20 05:27 Nystatin Powder 15gm Bottle TOPICAL 1 applic BID@0600,2200 GINNY Administration Protocol Polyethylene Glycol 17 gm 05/27/20 06:00 05/27/20 05:27 Polyethylene Glycol 3350 17 Gm Packet PO 17 gm DAILY GINNY Administration Senna/Docusate Sodium 1 tablet 05/27/20 06:00 05/27/20 16:53 Senna/Docusate Sodium 1 Tablet PO 1 tablet BID GINNY Administration Tuberculin PPD 5 tu 06/03/20 10:00 Tuberculin,Purif.Prot.Deriv. 50 Tu/Ml Vial ID 06/03/20 10:01 X1 ONE Problem List (Last Reviewed 05/22/20 @ 12:03 by Sherita Garibay) UTI (urinary tract infection) (Acute) Encephalopathy acute (Acute) Fall (Acute) Debility (Acute) Bacteremia (Acute) Atrial fibrillation and flutter (Chronic) Allergic rhinitis (Chronic) Hypertension (Chronic) COPD (chronic obstructive pulmonary disease) (Chronic) Vital Signs Temp Pulse Resp BP Pulse Ox 96.9 F L 62 16 151/72 H 95 05/27/20 13:46 05/27/20 16:53 05/27/20 13:46 05/27/20 13:46 05/27/20 13:46 Oxygen Delivery Method Nasal Cannula Weight: 84.482 kg Body Mass Index (BMI) 30.9 Sodium 140 mmol/L (136-145) 05/27/20 05:20 Potassium 4.3 mmol/L (3.5-5.1) 05/27/20 05:20 Chloride 107 mmol/L (98-107) 05/27/20 05:20 Carbon Dioxide 28.0 mmol/L (21.0-32.0) 05/27/20 05:20 Anion Gap 5 (5-15) 05/27/20 05:20 BUN 14 mg/dL (7-18) 05/27/20 05:20 Creatinine 0.86 mg/dL (0.55-1.02) 05/27/20 05:20 Est GFR (MDRD) Af Amer 82 mL/min (>60) 05/27/20 05:20 Est GFR (MDRD) Non-Af 67 mL/min (>60) 05/27/20 05:20 BUN/Creatinine Ratio 16.4 RATIO (10-20) 05/27/20 05:20 Glucose 94 mg/dL (74-106) 05/27/20 05:20 Assessment/Plan: Psychotropic Medications: Unnecessary Medications: Bowel Regimen: - Provider Comments Provider responsibility: Provider responsible to enter orders to implement recommendations Provider Comments to Recommendations by Pharmacy: Agree
[2020-05-27 16:53] VITALS: PULSE 62
[2020-05-27 19:45] VITALS: PULSE 64; RESP 16; O2SAT 94
[2020-05-27] MEDS: Montelukast 10 MG Tablet PO (21:06)
[2020-05-28 05:00] VITALS: BP 139/70; PULSE 67; RESP 16; TEMP 37; O2SAT 94
[2020-05-28] MEDS: Menthol/Lanolin/Calamine/Znox 113 GM Tube 1 APPLIC TOPICAL ×3 (05:03→22:28)
[2020-05-28] MEDS: Fluticasone 0.05% 1 SPRAY NASAL.SRY NASAL (05:04)
[2020-05-28] MEDS: APIXABAN 2.5 MG TABLET PO ×2 (05:04→17:17)
[2020-05-28 05:05] VITALS: PULSE 68
[2020-05-28] MEDS: hydroCHLOROthiazide 25 MG Tablet PO (05:05)
[2020-05-28] MEDS: Metoprolol Tartrate 100 MG Tablet PO ×2 (05:05→17:17)
[2020-05-28] MEDS: Nystatin Powder 15gm Bottle 1 APPLIC TOPICAL ×2 (05:06→22:29)
[2020-05-28] MEDS: Polyethylene Glycol 3350 17 GM PACKET PO (05:06)
[2020-05-28] MEDS: amLODIPine 5 MG Tablet PO (05:06)
[2020-05-28] MEDS: Senna/Docusate Sodium 1 Tablet PO ×2 (05:06→17:17)
[2020-05-28] MEDS: Lisinopril 40 MG Tablet PO (05:06)
[2020-05-28 07:40] VITALS: O2SAT 94
[2020-05-28] MEDS: Aspirin E.C. 81 MG Tablet PO (08:09)
--- NOTE | 2020-05-28 11:00 | NURSING ---
Addendum entered by Nallely Bucio 05/28/20 11:02: pt also provided checkbook that was given to grand-daughter. Original Note: Grand-daughter Madeleine, requesting garage door openers. The patient gave them to this nurse to give to grand-daughter.
[2020-05-28 13:46] VITALS: BP 122/66; PULSE 67; RESP 16; TEMP 36.4; O2SAT 97
--- NOTE | 2020-05-28 16:57 | CHAPLAIN ---
Type of Pastoral Visit _x__ Initial Visit ___ Follow-up Visit ___ On-call Visit ___ General Patient Visit ___ Spiritual Assessment ___ Family Conference ___ Bereavement ___ Rapid Response ___ Code Blue ___ Other (describe below) Pastoral Care Referral From ___ Patient _x__ Family ___ Nurse ___ Physician ___ Manager Fleet ___ Repair Servicer ___ Other (describe below) Sacrament/Intervention _x__ Active listening ___ Anointing ___ Tenriism ___ Bereavement ___ Communion ___ Raissa exploration ___ _x__ Life review _x__ Prayer ___ Reconciliation ___ Sacrament of Sick _x__ Supportive presence ___ Wedding ___ Other (describe below) Pastoral Comments patient is pleasant and welcoming; family requested visit for spiritual care and support; pt talks about her family and her interest in sports and watching the grandchildren play; pt is member of [employer] in [facility]
[2020-05-28 17:17] VITALS: BP 118/62; PULSE 74
[2020-05-28 22:00] VITALS: RESP 16
[2020-05-28] MEDS: Montelukast 10 MG Tablet PO (22:27)
[2020-05-29 03:53] VITALS: BP 122/68; PULSE 65; RESP 16; TEMP 36.8; O2SAT 93
[2020-05-29 04:56] VITALS: BP 122/68; PULSE 65
[2020-05-29] MEDS: hydroCHLOROthiazide 25 MG Tablet PO (04:56)
[2020-05-29] MEDS: APIXABAN 2.5 MG TABLET PO ×2 (04:56→17:09)
[2020-05-29] MEDS: Metoprolol Tartrate 100 MG Tablet PO ×2 (04:56→17:09)
[2020-05-29] MEDS: Senna/Docusate Sodium 1 Tablet PO ×2 (04:56→17:09)
[2020-05-29] MEDS: Menthol/Lanolin/Calamine/Znox 113 GM Tube 1 APPLIC TOPICAL ×3 (04:57→21:38)
[2020-05-29] MEDS: Lisinopril 40 MG Tablet PO (04:57)
[2020-05-29] MEDS: Polyethylene Glycol 3350 17 GM PACKET PO (04:57)
[2020-05-29] MEDS: amLODIPine 5 MG Tablet PO (04:57)
[2020-05-29] MEDS: Nystatin Powder 15gm Bottle 1 APPLIC TOPICAL ×2 (04:57→21:38)
[2020-05-29] MEDS: Fluticasone 0.05% 1 SPRAY NASAL.SRY NASAL (04:58)
[2020-05-29] MEDS: Aspirin E.C. 81 MG Tablet PO (08:23)
--- NOTE | 2020-05-29 08:46 | NURSING ---
Talked with pt about changing room to a bigger room. Pt stated she felt comfortable in her room and there is not need to change. She stated she was having a bad day the first night. Adv her that if she changes her mind to let us know.
[2020-05-29 10:00] VITALS: PULSE 65; RESP 18; O2SAT 92
[2020-05-29 14:00] VITALS: BP 105/56; PULSE 74; RESP 18; TEMP 36.2; O2SAT 93
[2020-05-29 17:09] VITALS: PULSE 74
[2020-05-29] MEDS: Montelukast 10 MG Tablet PO (21:39)
[2020-05-30 05:22] VITALS: BP 134/67; PULSE 61; RESP 16; TEMP 36.4; O2SAT 93
[2020-05-30] MEDS: APIXABAN 2.5 MG TABLET PO ×2 (05:25→16:35)
[2020-05-30] MEDS: Menthol/Lanolin/Calamine/Znox 113 GM Tube 1 APPLIC TOPICAL ×3 (05:25→19:38)
[2020-05-30] MEDS: Fluticasone 0.05% 1 SPRAY NASAL.SRY NASAL (05:25)
[2020-05-30] MEDS: hydroCHLOROthiazide 25 MG Tablet PO (05:25)
[2020-05-30 05:26] VITALS: PULSE 61
[2020-05-30] MEDS: Metoprolol Tartrate 100 MG Tablet PO ×2 (05:26→16:35)
[2020-05-30] MEDS: Nystatin Powder 15gm Bottle 1 APPLIC TOPICAL ×2 (05:26→19:38)
[2020-05-30] MEDS: Polyethylene Glycol 3350 17 GM PACKET PO (05:26)
[2020-05-30] MEDS: amLODIPine 5 MG Tablet PO (05:27)
[2020-05-30] MEDS: Senna/Docusate Sodium 1 Tablet PO ×2 (05:27→16:35)
[2020-05-30] MEDS: Lisinopril 40 MG Tablet PO (05:27)
[2020-05-30] MEDS: Aspirin E.C. 81 MG Tablet PO (08:21)
[2020-05-30 12:05] VITALS: RESP 18; O2SAT 93
[2020-05-30 13:36] VITALS: BP 131/63; PULSE 70; RESP 18; TEMP 36.6; O2SAT 96
[2020-05-30 16:35] VITALS: PULSE 70
[2020-05-30] MEDS: Montelukast 10 MG Tablet PO (19:38)
[2020-05-31 04:51] VITALS: BP 124/60; PULSE 62; RESP 18; TEMP 37.2; O2SAT 94
[2020-05-31] MEDS: Fluticasone 0.05% 1 SPRAY NASAL.SRY NASAL (04:53)
[2020-05-31 04:54] VITALS: BP 124/60; PULSE 62
[2020-05-31] MEDS: Metoprolol Tartrate 100 MG Tablet PO ×2 (04:54→17:28)
[2020-05-31] MEDS: hydroCHLOROthiazide 25 MG Tablet PO (04:55)
[2020-05-31] MEDS: APIXABAN 2.5 MG TABLET PO ×2 (04:55→17:28)
[2020-05-31] MEDS: Nystatin Powder 15gm Bottle 1 APPLIC TOPICAL ×2 (04:55→20:19)
[2020-05-31] MEDS: Menthol/Lanolin/Calamine/Znox 113 GM Tube 1 APPLIC TOPICAL ×3 (04:55→20:19)
[2020-05-31] MEDS: amLODIPine 5 MG Tablet PO (04:58)
[2020-05-31] MEDS: Lisinopril 40 MG Tablet PO (04:58)
[2020-05-31] MEDS: Aspirin E.C. 81 MG Tablet PO (08:27)
[2020-05-31 10:19] VITALS: PULSE 59; RESP 16; O2SAT 97
[2020-05-31 13:22] VITALS: BP 142/66; PULSE 63; RESP 16; TEMP 36.3; O2SAT 96
[2020-05-31 17:28] VITALS: PULSE 63
[2020-05-31] MEDS: Montelukast 10 MG Tablet PO (20:20)
[2020-06-01 03:45] VITALS: BP 144/63; PULSE 64; RESP 16; TEMP 36.7; O2SAT 94
[2020-06-01] MEDS: Menthol/Lanolin/Calamine/Znox 113 GM Tube 1 APPLIC TOPICAL ×3 (05:18→19:55)
[2020-06-01] MEDS: Nystatin Powder 15gm Bottle 1 APPLIC TOPICAL ×2 (05:18→19:54)
[2020-06-01] MEDS: Fluticasone 0.05% 1 SPRAY NASAL.SRY NASAL (05:19)
[2020-06-01 05:20] VITALS: PULSE 61
[2020-06-01] MEDS: Metoprolol Tartrate 100 MG Tablet PO ×2 (05:20→17:10)
[2020-06-01] MEDS: hydroCHLOROthiazide 25 MG Tablet PO (05:20)
[2020-06-01] MEDS: Lisinopril 40 MG Tablet PO (05:20)
[2020-06-01] MEDS: amLODIPine 5 MG Tablet PO (05:20)
[2020-06-01] MEDS: APIXABAN 2.5 MG TABLET PO ×2 (05:20→17:10)
[2020-06-01] MEDS: Aspirin E.C. 81 MG Tablet PO (08:22)
--- NOTE | 2020-06-01 08:43 | NURSING ---
Contacted Dr. Hernandez's office to notify them of consult. Dr. West is currently station examiner, so he will be seeing the patient.
[2020-06-01 14:04] VITALS: BP 129/65; PULSE 66; RESP 16; TEMP 36.4; O2SAT 94
[2020-06-01 17:10] VITALS: PULSE 66
[2020-06-01] MEDS: Montelukast 10 MG Tablet PO (19:54)
[2020-06-02 05:13] VITALS: BP 146/68; PULSE 65; RESP 17; TEMP 36.6; O2SAT 93
[2020-06-02 05:14] VITALS: BP 146/68; PULSE 65
[2020-06-02] MEDS: hydroCHLOROthiazide 25 MG Tablet PO (05:14)
[2020-06-02] MEDS: APIXABAN 2.5 MG TABLET PO ×2 (05:14→17:36)
[2020-06-02] MEDS: Metoprolol Tartrate 100 MG Tablet PO ×2 (05:14→17:36)
[2020-06-02] MEDS: Lisinopril 40 MG Tablet PO (05:15)
[2020-06-02] MEDS: amLODIPine 5 MG Tablet PO (05:15)
[2020-06-02] MEDS: Fluticasone 0.05% 1 SPRAY NASAL.SRY NASAL (05:15)
[2020-06-02] MEDS: Menthol/Lanolin/Calamine/Znox 113 GM Tube 1 APPLIC TOPICAL ×3 (05:16→19:40)
[2020-06-02] MEDS: Nystatin Powder 15gm Bottle 1 APPLIC TOPICAL ×2 (05:17→19:40)
[2020-06-02] MEDS: Aspirin E.C. 81 MG Tablet PO (09:02)
[2020-06-02 11:24] VITALS: PULSE 64; O2SAT 97
[2020-06-02 14:21] VITALS: BP 144/68; PULSE 71; RESP 17; TEMP 36.3; O2SAT 94
[2020-06-02 17:36] VITALS: BP 144/57; PULSE 71
[2020-06-02] MEDS: Montelukast 10 MG Tablet PO (19:39)
--- NOTE | 2020-06-02 21:39 | PCM.CONS.GEN ---
Reason for Consult Date of Consultation: 06/02/20 Reason for Consultation: Toenails History of Present Illness: The patient is a 84 year old female was seen today for long painful, thickened toenails 1,2,3,4,5 bilateral. She is unable to reduce them herself. She has no other pedal complaints. Past Medical History Past Medical History (Chronic Problems): Chronic Problems (Last Reviewed 05/22/20 @ 12:03 by Sherita Garibay) Atrial fibrillation and flutter (Chronic) Allergic rhinitis (Chronic) Hypertension (Chronic) COPD (chronic obstructive pulmonary disease) (Chronic) Elevated blood pressure reading in office with white coat syndrome, without diagnosis of hypertension (Chronic) Dyspnea on exertion (Chronic) Paroxysmal atrial fibrillation (Chronic) Essential (primary) hypertension (Chronic) Medical History: Medical History (Last Reviewed 05/22/20 @ 12:03 by Sherita Garibay) COPD (chronic obstructive pulmonary disease) (Chronic) J44.9 Elevated blood pressure reading in office with white coat syndrome, without diagnosis of hypertension (Chronic) R03.0 Paroxysmal atrial fibrillation (Chronic) I48.0 Essential (primary) hypertension (Chronic) I10 Basal cell carcinoma C44.91 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 Lung nodule seen on imaging study R91.1 Obesity E66.9 Arm fracture S42.309A Atrial fibrillation with RVR Onset Date: 04/13/18 I48.91 Fracture, rib S22.39XA New onset atrial fibrillation (Resolved) I48.91 Fatigue R53.83 Shortness of breath R06.02 Allergies amoxicillin Allergy (Verified 05/22/20 12:35) Rash cefdinir Allergy (Verified 05/22/20 12:35) Rash clavulanic acid [From Augmentin] Allergy (Verified 05/22/20 12:35) Rash heparin Allergy (Verified 05/22/20 12:35) Rash levofloxacin [From Levaquin] Allergy (Verified 05/22/20 12:35) Rash antibiotic Allergy (Uncoded 05/22/20 12:35) rash Antibiotic for cellulitis Home Medications: Ambulatory Orders Medication Instructions Recorded benazepril 20 mg tablet 40 mg PO DAILY 02/02/18 Acetaminophen [Tylenol] 1,000 mg PO Q6H PRN PRN 04/12/18 Aspirin E.C. [Ecotrin] 81 mg PO DAILY@0800 04/12/18 Fluticasone 0.05% [Flonase Nasal 1 spray NASAL DAILY 06/01/18 [place]] metoprolol tartrate 100 mg tablet 100 mg PO BID #180 tab 03/26/20 Amlodipine Besylate [Norvasc] 5 mg PO DAILY 05/22/20 Apixaban [Eliquis] 2.5 mg PO BID 05/22/20 Hydrochlorothiazide [Hctz] 25 mg PO DAILY 05/22/20 Montelukast Sodium 10 mg PO QHS 05/22/20 Surgical History: Surgical History (Last Reviewed 05/22/20 @ 12:03 by Sherita Garibay) H/O basal cell carcinoma excision Z98.890, Z85.828 History of vein stripping Z98.890 Surgical History: total knee arthroplasty - left, tonsillectomy, - - She reported that the cancer (basal cell cancer) mole was removed from her face. Also she had vein stripping Psychiatric History: No pertinent psych hx HEARING AID ASSISTANT History: No pertinent HEARING AID ASSISTANT history Lives: Alone Smoking Status: Never smoker Tobacco Use: Non-smoker Alcohol: None Drugs: None - *Family History Maternal Family History: Family History (Last Reviewed 05/22/20 @ 12:03 by Sherita Garibay) Father Cancer History Items: Dementia Paternal Family History: Family History (Last Reviewed 05/22/20 @ 12:03 by Sherita Garibay) Father Cancer History Items: Cancer Patient Problems: Active and Suspected Problems (Last Reviewed 05/22/20 @ 12:03 by Sherita Garibay) UTI (urinary tract infection) (Acute) Encephalopathy acute (Acute) Fall (Acute) Debility (Acute) Bacteremia (Acute) - Physical Exam Vitals/I&O's: Vital Signs Temp Pulse Resp BP Pulse Ox 97.3 F L 71 17 144/57 H 94 06/02/20 14:21 06/02/20 17:36 06/02/20 14:06/02/20 17:36 06/02/20 14:21 Oxygen Delivery Method Room Air Weight: 80.995 kg Body Mass Index (BMI) 30.9 Intake and Output for Last 24 Hours 05/31/20 06/01/20 06/02/20 23:59 23:59 23:59 Intake Total 720 / 720 600 / 600 600 / 600 Balance 720 / 720 600 / 600 600 / 600 General: Alert, Oriented x3, Cooperative, No apparent distress Extremities: Capillary Refill Less than 3 Seconds, No Calf Tenderness, - - Toenails 1,2,3,4,5 bilateral are thickened, dystrophic, yellow, elongated, incurvated, painful with subungual debris. No open lesions, no erythema, no tissue break down bilateral foot. Musculoskeletal: - - No m/s POP to the foot or ankle bilateral. Neurological: - - Sensation intat to light touch bilateral foot. Psych/Mental Status: Normal Affect, Appropriate, Alert and oriented to time, place, person, mood and affect Current Medications Acetaminophen (Acetaminophen 500 Mg Tablet) 1,000 mg PO Q6H PRN PRN PRN Reason: Pain Score 1-3 Amlodipine Besylate (Amlodipine 5 Mg Tablet) 5 mg PO DAILY [facility] Last Admin: 06/02/20 05:15 Dose: 5 mg Documented by: Apixaban (Apixaban 2.5 Mg Tablet) 2.5 mg PO BID [facility] Last Admin: 06/02/20 17:36 Dose: 2.5 mg Documented by: Aspirin (Aspirin E.C. 81 Mg Tablet) 81 mg PO DAILY@0800 [facility] Last Admin: 06/02/20 09:02 Dose: 81 mg Documented by: Bisacodyl (Bisacodyl 10 Mg Suppository) 10 mg RC DAILY PRN PRN Reason: Constipation Calamine/Phenol (Menthol/Lanolin/Calamine/Znox 113 Gm Tube) 1 applic TOPICAL TID [facility]; Protocol Last Admin: 06/02/20 19:40 Dose: 1 applic Documented by: Fluticasone Propionate (Fluticasone 0.05% 1 [place] Nasal.Sry) 1 spray NASAL DAILY [facility] Last Admin: 06/02/20 05:15 Dose: 1 spray Documented by: Hydrochlorothiazide (Hydrochlorothiazide 25 Mg Tablet) 25 mg PO DAILY [facility] Last Admin: 06/02/20 05:14 Dose: 25 mg Documented by: Lisinopril (Lisinopril 40 Mg Tablet) 40 mg PO DAILY [facility] Last Admin: 06/02/20 05:15 Dose: 40 mg Documented by: Magnesium Hydroxide (Magnesium Hydroxide 30 Ml Udc) 30 ml PO DAILY PRN PRN Reason: Constipation Metoprolol Tartrate (Metoprolol Tartrate 100 Mg Tablet) 100 mg PO BID [facility] Last Admin: 06/02/20 17:36 Dose: 100 mg Documented by: Montelukast Sodium (Montelukast 10 Mg Tablet) 10 mg PO QHS [facility] Last Admin: 06/02/20 19:39 Dose: 10 mg Documented by: Nystatin (Nystatin Powder 15gm Bottle) 1 applic TOPICAL BID@0600,2200 [facility]; Protocol Last Admin: 06/02/20 19:40 Dose: 1 applic Documented by: Polyethylene Glycol (Polyethylene Glycol 3350 17 Gm Packet) 17 gm PO DAILY [facility] Last Admin: 06/02/20 05:17 Dose: Not Given Documented by: Senna/Docusate Sodium (Senna/Docusate Sodium 1 Tablet) 1 tablet PO BID [facility] Last Admin: 06/02/20 17:36 Dose: Not Given Documented by: Tuberculin PPD (Tuberculin,Purif.Prot.Deriv. 50 Tu/Ml Vial) 5 tu ID X1 ONE Stop: 06/03/20 10:01 Assessment/Plan All Active Problems (Last Reviewed 05/22/20 @ 12:03 by Sherita Garibay) UTI (urinary tract infection) (Acute) Sepsis (Acute) Encephalopathy acute (Acute) Contusion, buttock (Acute) Strain of muscle, fascia and tendon of lower back, initial encounter (Acute) Fall (Acute) Severe sepsis (Acute) Debility (Acute) Bacteremia (Acute) Hypertension after donor nephrectomy requiring medication (Acute) Bronchitis (Resolved) New onset atrial fibrillation (Resolved) URI (upper respiratory infection) (Resolved) Onychomycosis, dystrohpic toenails 1,2,3,4,5 bilateral Pain in toe, right and left Debrided toenails 1,2,3,4,5 bilateral using a nail nipper removing bulk. This was done without incident. Discussed proper foot care. She has no other pedal complaints. [facility] can [facility] for future [facility] care as needed. Thank you for consult.
[2020-06-03 05:01] VITALS: BP 138/60; PULSE 60; RESP 18; TEMP 36.1; O2SAT 93
[2020-06-03 05:03] VITALS: BP 138/60; PULSE 60
[2020-06-03] MEDS: hydroCHLOROthiazide 25 MG Tablet PO (05:03)
[2020-06-03] MEDS: APIXABAN 2.5 MG TABLET PO ×2 (05:03→17:57)
[2020-06-03] MEDS: Metoprolol Tartrate 100 MG Tablet PO ×2 (05:03→17:57)
[2020-06-03] MEDS: Fluticasone 0.05% 1 SPRAY NASAL.SRY NASAL (05:03)
[2020-06-03] MEDS: amLODIPine 5 MG Tablet PO (05:03)
[2020-06-03] MEDS: Lisinopril 40 MG Tablet PO (05:03)
[2020-06-03] MEDS: Nystatin Powder 15gm Bottle 1 APPLIC TOPICAL ×2 (05:05→21:54)
[2020-06-03] MEDS: Menthol/Lanolin/Calamine/Znox 113 GM Tube 1 APPLIC TOPICAL ×3 (05:05→21:54)
[2020-06-03 05:39] LABS: Absolute Lymphocyte Count 1.75 X10^3/uL (0.83-4.51); Absolute Neutrophil Count 2.2 X10^3/uL (2.0-7.7); Basophil# 0.02 X10^3/uL; Basophil% 0.4 % (0-1); Eosinophil# 0.26 X10^3/uL; Eosinophils% 5.6 % (0-5); Hematocrit 32.6 % (37-47); Hemoglobin 10.7 g/dL (12.0-15.0); Lymphocyte # 1.75 X10^3/ul (4.0); Lymphocyte % 37.6 % (19-41); Mean Corp Hgb Conc 32.8 g/dL (32-36); Mean Corpuscular Hgb 30.1 pg (27.0-32.0); Mean Corpuscular Volume 91.6 fL (81-99); Mean Platelet Vol. 9.4 fl (6.2-12.0); Monocyte# 0.45 X10^3/uL; Monocyte% 9.7 % (0-10); NRBC Flagged by Analyzer 0 % (0-5); Neutrophil # 2.15 X10^3/uL (2.7-7.7); Neutrophil % 46.3 % (47-70); Platelet Count 192 K/mm3 (150-450); RBC Distribution Width CV 13.1 % (11.6-14.6); Red Blood Count 3.56 M/mm3 (4.2-5.4); White Blood Count 4.7 K/mm3 (4.4-11.0)
[2020-06-03 05:55] LABS: Anion Gap 4 (5-15); BUN 19 mg/dL (7-18); BUN/Creat Ratio 20.8 RATIO (10-20); Calcium,Total 8.5 mg/dL (8.5-10.1); Chloride 102 mmol/L (98-107); Creatinine, Serum 0.91 mg/dL (0.55-1.02); EST Glomerular Filtration Rate 63 mL/min (>60); Est Glom Filt Rate - Afr Amer 76 mL/min (>60); Estimated Creatinine Clearance 42.89 ml/min; Glucose 93 mg/dL (74-106); Potassium 3.7 mmol/L (3.5-5.1); Sodium Level 136 mmol/L (136-145)
[2020-06-03] MEDS: Aspirin E.C. 81 MG Tablet PO (08:39)
[2020-06-03 10:00] VITALS: PULSE 72; RESP 16; O2SAT 98
[2020-06-03] MEDS: Tuberculin,Purif.prot.deriv. 50 TU/ML Vial 5 ML ID (11:59)
[2020-06-03 14:33] VITALS: BP 142/75; PULSE 68; RESP 14; TEMP 36.3; O2SAT 96
--- NOTE | 2020-06-03 15:41 | CASEMGMT ---
Social Work IDT met with patient, son and granddaughter via conference call for care plan meeting. Discussed patient's progress in therapy and nursing. Pt progressing well. Pt is out of isolation 4/6. Therapy would like to complete a flight of steps once out of isolation then comfortable with setting DC date. Pt and family agreeable to DC as long as pt is safe to return home alone. Explained Medicare insurance and encouraged to contact [facility] to ensure copay coverage. Emailed [employer] [facility] to [facility] per request. Explained C vs outpatient therapy. Pt has no DME needs. SW to continue to follow for DC. Misty Choudhary, [employer] DEVELOPER
[2020-06-03 17:57] VITALS: PULSE 68
[2020-06-03] MEDS: Montelukast 10 MG Tablet PO (21:52)
[2020-06-04 05:00] VITALS: BP 117/55; PULSE 60; RESP 16; TEMP 36.8; O2SAT 91
[2020-06-04] MEDS: Fluticasone 0.05% 1 SPRAY NASAL.SRY NASAL (05:20)
[2020-06-04] MEDS: Menthol/Lanolin/Calamine/Znox 113 GM Tube 1 APPLIC TOPICAL ×3 (05:20→21:21)
[2020-06-04 05:21] VITALS: BP 117/55; PULSE 60
[2020-06-04] MEDS: APIXABAN 2.5 MG TABLET PO ×2 (05:21→17:33)
[2020-06-04] MEDS: Metoprolol Tartrate 100 MG Tablet PO ×2 (05:21→17:33)
[2020-06-04] MEDS: hydroCHLOROthiazide 25 MG Tablet PO (05:21)
[2020-06-04] MEDS: amLODIPine 5 MG Tablet PO (05:22)
[2020-06-04] MEDS: Lisinopril 40 MG Tablet PO (05:22)
[2020-06-04] MEDS: Nystatin Powder 15gm Bottle 1 APPLIC TOPICAL ×2 (05:22→21:20)
[2020-06-04] MEDS: Aspirin E.C. 81 MG Tablet PO (09:03)
[2020-06-04 14:52] VITALS: BP 125/58; PULSE 70; RESP 16; TEMP 36.3; O2SAT 93
[2020-06-04 17:33] VITALS: BP 125/58; PULSE 70
[2020-06-04] MEDS: Montelukast 10 MG Tablet PO (21:20)
[2020-06-05 04:11] VITALS: BP 133/61; PULSE 60; RESP 18; TEMP 37; O2SAT 92
[2020-06-05 05:23] VITALS: PULSE 60
[2020-06-05] MEDS: Senna/Docusate Sodium 1 Tablet PO (05:23)
[2020-06-05] MEDS: amLODIPine 5 MG Tablet PO (05:23)
[2020-06-05] MEDS: Metoprolol Tartrate 100 MG Tablet PO ×2 (05:23→17:50)
[2020-06-05] MEDS: Aspirin E.C. 81 MG Tablet PO (05:23)
[2020-06-05] MEDS: Fluticasone 0.05% 1 SPRAY NASAL.SRY NASAL (05:23)
[2020-06-05] MEDS: Lisinopril 40 MG Tablet PO (05:23)
[2020-06-05] MEDS: hydroCHLOROthiazide 25 MG Tablet PO (05:24)
[2020-06-05] MEDS: APIXABAN 2.5 MG TABLET PO ×2 (05:24→17:50)
[2020-06-05] MEDS: Menthol/Lanolin/Calamine/Znox 113 GM Tube 1 APPLIC TOPICAL ×3 (05:24→20:49)
[2020-06-05] MEDS: Nystatin Powder 15gm Bottle 1 APPLIC TOPICAL ×2 (05:24→20:48)
[2020-06-05 05:44] LABS: Hematocrit 36.3 % (37-47); Hemoglobin 11.9 g/dL (12.0-15.0)
--- NOTE | 2020-06-05 08:45 | MDS.RN ---
Information for the mds was obtained from review of the clinical record, interview of resident, staff, and direct observation of resident's care.
[2020-06-05 10:00] VITALS: PULSE 82; RESP 16; O2SAT 99
[2020-06-05 13:48] VITALS: BP 132/58; PULSE 66; RESP 16; TEMP 36.2; O2SAT 95
[2020-06-05 17:50] VITALS: PULSE 66
[2020-06-05] MEDS: Montelukast 10 MG Tablet PO (20:47)
[2020-06-06 04:48] VITALS: BP 119/49; PULSE 60; RESP 16; TEMP 36.7; O2SAT 93
[2020-06-06] MEDS: Fluticasone 0.05% 1 SPRAY NASAL.SRY NASAL (04:50)
[2020-06-06] MEDS: Lisinopril 40 MG Tablet PO (04:50)
[2020-06-06 04:51] VITALS: BP 119/49; PULSE 60
[2020-06-06] MEDS: APIXABAN 2.5 MG TABLET PO ×2 (04:51→17:56)
[2020-06-06] MEDS: Metoprolol Tartrate 100 MG Tablet PO ×2 (04:51→17:56)
[2020-06-06] MEDS: amLODIPine 5 MG Tablet PO (04:51)
[2020-06-06] MEDS: hydroCHLOROthiazide 25 MG Tablet PO (04:51)
[2020-06-06] MEDS: Nystatin Powder 15gm Bottle 1 APPLIC TOPICAL ×2 (04:54→21:12)
[2020-06-06] MEDS: Menthol/Lanolin/Calamine/Znox 113 GM Tube 1 APPLIC TOPICAL ×3 (04:54→21:13)
[2020-06-06] MEDS: Aspirin E.C. 81 MG Tablet PO (08:36)
[2020-06-06 13:54] VITALS: BP 109/55; PULSE 62; RESP 16; TEMP 36.3; O2SAT 94
[2020-06-06 17:56] VITALS: BP 129/66; PULSE 70
[2020-06-06] MEDS: Montelukast 10 MG Tablet PO (21:12)
[2020-06-06 21:13] VITALS: RESP 16
[2020-06-07 05:00] VITALS: BP 119/53; PULSE 63; RESP 15; TEMP 37.1; O2SAT 94
[2020-06-07 05:14] VITALS: BP 119/53; PULSE 62
[2020-06-07] MEDS: Metoprolol Tartrate 100 MG Tablet PO ×2 (05:14→19:38)
[2020-06-07] MEDS: APIXABAN 2.5 MG TABLET PO ×2 (05:14→16:57)
[2020-06-07] MEDS: amLODIPine 5 MG Tablet PO (05:14)
[2020-06-07] MEDS: hydroCHLOROthiazide 25 MG Tablet PO (05:14)
[2020-06-07] MEDS: Lisinopril 40 MG Tablet PO (05:14)
[2020-06-07] MEDS: Fluticasone 0.05% 1 SPRAY NASAL.SRY NASAL (05:15)
[2020-06-07] MEDS: Menthol/Lanolin/Calamine/Znox 113 GM Tube 1 APPLIC TOPICAL ×3 (05:15→19:43)
[2020-06-07] MEDS: Nystatin Powder 15gm Bottle 1 APPLIC TOPICAL ×2 (05:16→19:42)
[2020-06-07] MEDS: Aspirin E.C. 81 MG Tablet PO (08:41)
[2020-06-07 14:37] VITALS: PULSE 59; RESP 16; O2SAT 95
[2020-06-07 14:50] VITALS: BP 131/60; PULSE 58; RESP 14; TEMP 36.8; O2SAT 97
[2020-06-07 19:38] VITALS: BP 112/51; PULSE 67
[2020-06-07] MEDS: Montelukast 10 MG Tablet PO (19:42)
[2020-06-08 05:00] VITALS: BP 113/53; PULSE 56; RESP 15; TEMP 36.3; O2SAT 94
[2020-06-08] MEDS: amLODIPine 5 MG Tablet PO (05:12)
[2020-06-08] MEDS: hydroCHLOROthiazide 25 MG Tablet PO (05:12)
[2020-06-08] MEDS: Lisinopril 40 MG Tablet PO (05:13)
[2020-06-08] MEDS: Nystatin Powder 15gm Bottle 1 APPLIC TOPICAL ×2 (05:13→20:49)
[2020-06-08] MEDS: APIXABAN 2.5 MG TABLET PO ×2 (05:13→16:52)
[2020-06-08] MEDS: Fluticasone 0.05% 1 SPRAY NASAL.SRY NASAL (05:13)
[2020-06-08] MEDS: Menthol/Lanolin/Calamine/Znox 113 GM Tube 1 APPLIC TOPICAL ×3 (05:18→20:50)
[2020-06-08 07:19] VITALS: PULSE 50
[2020-06-08] MEDS: Aspirin E.C. 81 MG Tablet PO (08:44)
[2020-06-08 14:22] VITALS: BP 111/59; PULSE 76; RESP 16; TEMP 36.9; O2SAT 95
--- NOTE | 2020-06-08 16:32 | NURSING ---
updated son on pt progress.
[2020-06-08 16:52] VITALS: PULSE 76
[2020-06-08] MEDS: Metoprolol Tartrate 100 MG Tablet PO (16:52)
[2020-06-08 20:45] VITALS: RESP 16
[2020-06-08] MEDS: Montelukast 10 MG Tablet PO (20:49)
[2020-06-09 05:44] VITALS: BP 103/56; PULSE 61; RESP 16; TEMP 36.6; O2SAT 94
[2020-06-09 05:48] VITALS: BP 103/56; PULSE 61
[2020-06-09] MEDS: Lisinopril 40 MG Tablet PO (05:48)
[2020-06-09] MEDS: Metoprolol Tartrate 100 MG Tablet PO ×2 (05:48→17:23)
[2020-06-09] MEDS: hydroCHLOROthiazide 25 MG Tablet PO (05:48)
[2020-06-09] MEDS: Menthol/Lanolin/Calamine/Znox 113 GM Tube 1 APPLIC TOPICAL ×3 (05:48→22:04)
[2020-06-09] MEDS: Fluticasone 0.05% 1 SPRAY NASAL.SRY NASAL (05:49)
[2020-06-09] MEDS: APIXABAN 2.5 MG TABLET PO ×2 (05:49→17:23)
[2020-06-09] MEDS: Nystatin Powder 15gm Bottle 1 APPLIC TOPICAL ×2 (05:50→22:04)
[2020-06-09] MEDS: amLODIPine 5 MG Tablet PO (05:50)
[2020-06-09] MEDS: Aspirin E.C. 81 MG Tablet PO (09:06)
[2020-06-09 10:00] VITALS: PULSE 18; RESP 18; O2SAT 98
--- NOTE | 2020-06-09 12:46 | CASEMGMT ---
Social Work Spoke with pt about IDT setting DC date 06/13. Pt agreeable. Explained OP therapy vs HHC. Pt states she does have family that can transport for OP. She will be discharging to son's home in [place]. Referral made to [facility] for PT/OT. No DME needs. Plan: DC home with son 06/13, [facility] GISELE RingW
[2020-06-09 13:48] VITALS: BP 118/60; PULSE 69; RESP 17; TEMP 37.1; O2SAT 93
[2020-06-09 17:23] VITALS: PULSE 66
--- NOTE | 2020-06-09 20:11 | DCINST_ITS ---
- Discharge Diagnoses Current Active Problems: Current Active and Chronic Problems (Last Reviewed 05/22/20 @ 12:03 by Sherita Garibay) UTI (urinary tract infection) (Acute) Encephalopathy acute (Acute) Fall (Acute) Debility (Acute) Bacteremia (Acute) Atrial fibrillation and flutter (Chronic) Allergic rhinitis (Chronic) Hypertension (Chronic) COPD (chronic obstructive pulmonary disease) (Chronic) You will use the following diet at home:: No restrictions, Regular Your food should be the consistency of: Regular Your liquids should be the consistency of: Regular/Thin Discharge Activity: Return to Normal Activity, May Shower, Use Walker Weight Bearing Status: Weight bearing as tolerated Call your doctor if you observe: Fever of 101 or Higher, Inability to urinate, Inability to have a bowel movement, Shortness of breath, Chest pain, Uncontrolled pain Allergies/Adverse Reactions: Allergies amoxicillin Allergy (Verified 05/22/20 12:35) Rash cefdinir Allergy (Verified 05/22/20 12:35) Rash clavulanic acid [From Augmentin] Allergy (Verified 05/22/20 12:35) Rash heparin Allergy (Verified 05/22/20 12:35) Rash levofloxacin [From Levaquin] Allergy (Verified 05/22/20 12:35) Rash antibiotic Allergy (Uncoded 05/22/20 12:35) rash Antibiotic for cellulitis Medications to take at Discharge benazepril 20 mg tablet 40 mg PO DAILY 02/02/18 Acetaminophen [Tylenol] 1,000 mg PO Q6H PRN PRN 04/12/18 Aspirin E.C. [Ecotrin] 81 mg PO DAILY@0800 04/12/18 Fluticasone 0.05% [Flonase Nasal [place]] 1 spray NASAL DAILY 06/01/18 metoprolol tartrate 100 mg tablet 100 mg PO BID #180 tab 03/26/20 Amlodipine Besylate [Norvasc] 5 mg PO DAILY 05/22/20 Apixaban [Eliquis] 2.5 mg PO BID 05/22/20 Hydrochlorothiazide [Hctz] 25 mg PO DAILY 05/22/20 Montelukast Sodium 10 mg PO QHS 05/22/20 Menthol/Lanolin/Calamine/Znox [Calmoseptine Ointment] 1 applic TOPICAL TID tube 06/09/20 Nystatin Powder [Mycostatin Powder] 1 applic TOPICAL BID@0600,2200 bottle 06/09/20 Primary Care Physician: Care Physician,No Primary [Primary Care Provider] - Please follow up with your Primary Care Physician in: 1 week. Test Results: Test results from this visit will be discussed in further detail at your follow- up appointment, if applicable. Proposed Discharge Date: 06/13/20
--- NOTE | 2020-06-09 20:13 | PCM.DC.SUM ---
Discharge Date and Diagnosis - Problem List Patient Problems: Active and Suspected Problems (Last Reviewed 05/22/20 @ 12:03 by Sherita Garibay) UTI (urinary tract infection) (Acute) Encephalopathy acute (Acute) Fall (Acute) Debility (Acute) Bacteremia (Acute) Date of Admission: 05/26/20 Date of Discharge: 06/13/20 - Primary Discharge Diagnosis Acute Problems: Active Problems (Last Reviewed 05/22/20 @ 12:03 by Sherita Garibay) UTI (urinary tract infection) (Acute) Encephalopathy acute (Acute) Fall (Acute) Debility (Acute) Bacteremia (Acute) - Secondary Discharge Diagnosis Chronic Problems: Chronic Problems (Last Reviewed 05/22/20 @ 12:03 by Sherita Garibay) Atrial fibrillation and flutter (Chronic) Allergic rhinitis (Chronic) Hypertension (Chronic) COPD (chronic obstructive pulmonary disease) (Chronic) Elevated blood pressure reading in office with white coat syndrome, without diagnosis of hypertension (Chronic) Dyspnea on exertion (Chronic) Paroxysmal atrial fibrillation (Chronic) Essential (primary) hypertension (Chronic) Hospital Course and Treatment Imaging Results: 05/26/20 18:19 Diet: Cardiac - Heart Healthy Food consistency:: Regular Liquid Consistency:: Regular/Thin Type of Dietary Supplement:: Ensure Enlive Is pt able to select menu?: Yes Operations: None Procedures: None Summary of Care Provided: The patient is a 84 year old Female with below past medical history hospitalized for encephalopathy secondary to urinary tract infection, E. Coli bacteremia, complicated by dehydration, admitted to TCU with debility, here for rehabilitation, strengthening, prior to discharge home alone. Discharge home with sonBreanna Outpatient PT/OT. Patient Problems: Active and Suspected Problems (Last Reviewed 05/22/20 @ 12:03 by Sherita Garibay) UTI (urinary tract infection) (Acute) Encephalopathy acute (Acute) Fall (Acute) Debility (Acute) Bacteremia (Acute) - Physical Exam Vitals/I&O's: Vital Signs Temp Pulse Resp BP Pulse Ox 98.8 F 66 17 118/60 93 06/09/20 13:48 06/09/20 17:23 06/09/20 13:48 06/09/20 13:48 06/09/20 13:48 Oxygen Delivery Method Room Air Weight: 80.796 kg Body Mass Index (BMI) 30.9 Intake and Output for Last 24 Hours 06/07/20 06/08/20 06/09/20 23:59 23:59 23:59 Intake Total 800 / 800 720 / 720 820 / 820 Balance 800 / 800 720 / 720 820 / 820 Current Medications Acetaminophen (Acetaminophen 500 Mg Tablet) 1,000 mg PO Q6H PRN PRN PRN Reason: Pain Score 1-3 Amlodipine Besylate (Amlodipine 5 Mg Tablet) 5 mg PO DAILY [facility] Last Admin: 06/09/20 05:50 Dose: 5 mg Documented by: Apixaban (Apixaban 2.5 Mg Tablet) 2.5 mg PO BID [facility] Last Admin: 06/09/20 17:23 Dose: 2.5 mg Documented by: Aspirin (Aspirin E.C. 81 Mg Tablet) 81 mg PO DAILY@0800 [facility] Last Admin: 06/09/20 09:06 Dose: 81 mg Documented by: Bisacodyl (Bisacodyl 10 Mg Suppository) 10 mg RC DAILY PRN PRN Reason: Constipation Calamine/Phenol (Menthol/Lanolin/Calamine/Znox 113 Gm Tube) 1 applic TOPICAL TID [facility]; Protocol Last Admin: 06/09/20 17:24 Dose: 1 applic Documented by: Fluticasone Propionate (Fluticasone 0.05% 1 [place] Nasal.Sry) 1 spray NASAL DAILY [facility] Last Admin: 06/09/20 05:49 Dose: 1 spray Documented by: Hydrochlorothiazide (Hydrochlorothiazide 25 Mg Tablet) 25 mg PO DAILY [facility] Last Admin: 06/09/20 05:48 Dose: 25 mg Documented by: Lisinopril (Lisinopril 40 Mg Tablet) 40 mg PO DAILY [facility] Last Admin: 06/09/20 05:48 Dose: 40 mg Documented by: Magnesium Hydroxide (Magnesium Hydroxide 30 Ml Udc) 30 ml PO DAILY PRN PRN Reason: Constipation Metoprolol Tartrate (Metoprolol Tartrate 100 Mg Tablet) 100 mg PO BID [facility] Last Admin: 06/09/20 17:23 Dose: 100 mg Documented by: Montelukast Sodium (Montelukast 10 Mg Tablet) 10 mg PO QHS [facility] Last Admin: 06/08/20 20:49 Dose: 10 mg Documented by: Nystatin (Nystatin Powder 15gm Bottle) 1 applic TOPICAL BID@0600,2200 [facility]; Protocol Last Admin: 06/09/20 05:50 Dose: 1 applic Documented by: Polyethylene Glycol (Polyethylene Glycol 3350 17 Gm Packet) 17 gm PO DAILY [facility] Last Admin: 06/09/20 05:51 Dose: Not Given Documented by: Senna/Docusate Sodium (Senna/Docusate Sodium 1 Tablet) 1 tablet PO BID [facility] Last Admin: 06/09/20 17:24 Dose: Not Given Documented by: Discharge Diet: No Restrictions Discharge Activity: Return to Normal Activity, May Shower, Use Walker Weight Bearing Status: Weight bearing as tolerated Call your doctor if you observe: Fever of 101 or Higher, Inability to urinate, Inability to have a bowel movement, Shortness of breath, Chest pain, Uncontrolled pain Home Medications: Medications to take at Discharge benazepril 20 mg tablet 40 mg PO DAILY 02/02/18 Acetaminophen [Tylenol] 1,000 mg PO Q6H PRN PRN 04/12/18 Aspirin E.C. [Ecotrin] 81 mg PO DAILY@0800 04/12/18 Fluticasone 0.05% [Flonase Nasal [place]] 1 spray NASAL DAILY 06/01/18 metoprolol tartrate 100 mg tablet 100 mg PO BID #180 tab 03/26/20 Amlodipine Besylate [Norvasc] 5 mg PO DAILY 05/22/20 Apixaban [Eliquis] 2.5 mg PO BID 05/22/20 Hydrochlorothiazide [Hctz] 25 mg PO DAILY 05/22/20 Montelukast Sodium 10 mg PO QHS 05/22/20 Menthol/Lanolin/Calamine/Znox [Calmoseptine Ointment] 1 applic TOPICAL TID tube 06/09/20 Nystatin Powder [Mycostatin Powder] 1 applic TOPICAL BID@0600,2200 bottle 06/09/20 Primary Care Physician: Care Physician,No Primary [Primary Care Provider] - Please follow up with your Primary Care Physician in: 1 week. Disposition: Home Minutes spent on discharge:: 30 Patient Condition:: Stable Medical Necessity - Tobacco Use Smoking Status: Never smoker Tobacco Use: Non-smoker Meaningful Use Info Meaningful Use Diagnoses (Choose all that apply): None applicable
[2020-06-09] MEDS: Montelukast 10 MG Tablet PO (22:00)
[2020-06-10] MEDS: APIXABAN 2.5 MG TABLET PO ×2 (04:56→17:26)
[2020-06-10] MEDS: Fluticasone 0.05% 1 SPRAY NASAL.SRY NASAL (04:56)
[2020-06-10 04:57] VITALS: BP 113/54; PULSE 60
[2020-06-10] MEDS: Metoprolol Tartrate 100 MG Tablet PO ×2 (04:57→17:26)
[2020-06-10] MEDS: hydroCHLOROthiazide 25 MG Tablet PO (04:57)
[2020-06-10] MEDS: amLODIPine 5 MG Tablet PO (04:58)
[2020-06-10 04:59] VITALS: BP 113/54; PULSE 60; RESP 16; TEMP 36.7; O2SAT 93
[2020-06-10] MEDS: Lisinopril 40 MG Tablet PO (04:59)
[2020-06-10] MEDS: Nystatin Powder 15gm Bottle 1 APPLIC TOPICAL ×2 (04:59→19:34)
[2020-06-10] MEDS: Menthol/Lanolin/Calamine/Znox 113 GM Tube 1 APPLIC TOPICAL ×3 (05:00→19:33)
[2020-06-10 05:34] LABS: Absolute Lymphocyte Count 2.21 X10^3/uL (0.83-4.51); Absolute Neutrophil Count 2.2 X10^3/uL (2.0-7.7); Basophil# 0.03 X10^3/uL; Basophil% 0.6 % (0-1); Eosinophil# 0.25 X10^3/uL; Eosinophils% 4.8 % (0-5); Hematocrit 34.1 % (37-47); Hemoglobin 10.9 g/dL (12.0-15.0); Lymphocyte # 2.21 X10^3/ul (4.0); Lymphocyte % 42.2 % (19-41); Mean Corpuscular Volume 93.9 fL (81-99); Mean Platelet Vol. 9.9 fl (6.2-12.0); Monocyte# 0.52 X10^3/uL; Monocyte% 9.9 % (0-10); NRBC Flagged by Analyzer 0 % (0-5); Neutrophil # 2.22 X10^3/uL (2.7-7.7); Neutrophil % 42.3 % (47-70); Platelet Count 205 K/mm3 (150-450); RBC Distribution Width CV 13.2 % (11.6-14.6); RBC Distribution Width SD 45.1 fl (35.1-43.9); Red Blood Count 3.63 M/mm3 (4.2-5.4); White Blood Count 5.2 K/mm3 (4.4-11.0)
[2020-06-10 05:50] LABS: Anion Gap 5 (5-15); BUN 39 mg/dL (7-18); Calcium,Total 8.8 mg/dL (8.5-10.1); Chloride 104 mmol/L (98-107); Creatinine, Serum 1.22 mg/dL (0.55-1.02); EST Glomerular Filtration Rate 45 mL/min (>60); Est Glom Filt Rate - Afr Amer 54 mL/min (>60); Estimated Creatinine Clearance 31.99 ml/min; Glucose 91 mg/dL (74-106); Potassium 3.9 mmol/L (3.5-5.1); Sodium Level 139 mmol/L (136-145)
[2020-06-10] MEDS: Aspirin E.C. 81 MG Tablet PO (08:38)
[2020-06-10 13:57] VITALS: BP 108/50; PULSE 66; RESP 16; TEMP 36.1; O2SAT 93
[2020-06-10 17:26] VITALS: PULSE 66
[2020-06-10] MEDS: Montelukast 10 MG Tablet PO (19:33)
[2020-06-11 05:30] VITALS: BP 127/53; PULSE 62; RESP 17; TEMP 35.7; O2SAT 93
[2020-06-11] MEDS: APIXABAN 2.5 MG TABLET PO ×2 (05:30→18:04)
[2020-06-11] MEDS: Metoprolol Tartrate 100 MG Tablet PO ×2 (05:30→18:04)
[2020-06-11] MEDS: Fluticasone 0.05% 1 SPRAY NASAL.SRY NASAL (05:30)
[2020-06-11] MEDS: amLODIPine 5 MG Tablet PO (05:30)
[2020-06-11] MEDS: hydroCHLOROthiazide 25 MG Tablet PO (05:30)
[2020-06-11] MEDS: Lisinopril 40 MG Tablet PO (05:30)
[2020-06-11] MEDS: Nystatin Powder 15gm Bottle 1 APPLIC TOPICAL ×2 (05:32→19:49)
[2020-06-11] MEDS: Menthol/Lanolin/Calamine/Znox 113 GM Tube 1 APPLIC TOPICAL ×3 (05:32→19:49)
[2020-06-11] MEDS: Aspirin E.C. 81 MG Tablet PO (09:28)
[2020-06-11 12:24] VITALS: PULSE 62; RESP 16; O2SAT 94
[2020-06-11 13:42] VITALS: BP 128/61; PULSE 62; RESP 16; TEMP 36.2; O2SAT 96
--- NOTE | 2020-06-11 14:22 | MDS.RN ---
Completed pain interview for sirena 06/13/20
[2020-06-11 18:04] VITALS: BP 128/70; PULSE 69
[2020-06-11] MEDS: Senna/Docusate Sodium 1 Tablet PO (18:04)
[2020-06-11] MEDS: Montelukast 10 MG Tablet PO (19:51)
[2020-06-12 05:12] VITALS: BP 122/53; PULSE 65; RESP 16; TEMP 36.5; O2SAT 95
[2020-06-12] MEDS: Fluticasone 0.05% 1 SPRAY NASAL.SRY NASAL (05:15)
[2020-06-12 05:16] VITALS: PULSE 65
[2020-06-12] MEDS: hydroCHLOROthiazide 25 MG Tablet PO (05:16)
[2020-06-12] MEDS: Nystatin Powder 15gm Bottle 1 APPLIC TOPICAL ×2 (05:16→20:33)
[2020-06-12] MEDS: amLODIPine 5 MG Tablet PO (05:16)
[2020-06-12] MEDS: Metoprolol Tartrate 100 MG Tablet PO ×2 (05:16→17:14)
[2020-06-12] MEDS: APIXABAN 2.5 MG TABLET PO ×2 (05:16→17:15)
[2020-06-12] MEDS: Lisinopril 40 MG Tablet PO (05:16)
[2020-06-12] MEDS: Menthol/Lanolin/Calamine/Znox 113 GM Tube 1 APPLIC TOPICAL ×3 (05:17→20:34)
[2020-06-12] MEDS: Aspirin E.C. 81 MG Tablet PO (08:48)
--- NOTE | 2020-06-12 11:33 | CASEMGMT ---
BIMS and PHQ9 interviews completed on this date for MDS assessment. JENNIFER Holm
[2020-06-12 13:54] VITALS: BP 108/55; PULSE 67; RESP 16; TEMP 36.4; O2SAT 95
[2020-06-12 17:14] VITALS: BP 115/56; PULSE 67
[2020-06-12] MEDS: Montelukast 10 MG Tablet PO (20:33)
[2020-06-13 05:12] VITALS: BP 126/66; PULSE 62; RESP 16; TEMP 36.9; O2SAT 95
[2020-06-13] MEDS: Fluticasone 0.05% 1 SPRAY NASAL.SRY NASAL (05:13)
[2020-06-13] MEDS: Lisinopril 40 MG Tablet PO (05:14)
[2020-06-13] MEDS: hydroCHLOROthiazide 25 MG Tablet PO (05:14)
[2020-06-13 05:15] VITALS: BP 126/66; PULSE 62
[2020-06-13] MEDS: APIXABAN 2.5 MG TABLET PO (05:15)
[2020-06-13] MEDS: Metoprolol Tartrate 100 MG Tablet PO (05:15)
[2020-06-13] MEDS: amLODIPine 5 MG Tablet PO (05:15)
[2020-06-13] MEDS: Menthol/Lanolin/Calamine/Znox 113 GM Tube 1 APPLIC TOPICAL (05:16)
[2020-06-13] MEDS: Nystatin Powder 15gm Bottle 1 APPLIC TOPICAL (05:16)
[2020-06-13] MEDS: Aspirin E.C. 81 MG Tablet PO (08:41)
[2020-06-13 10:00] VITALS: PULSE 62; RESP 18; O2SAT 96
== END 2020-06-13 11:15 | disposition home or self-care (01) | DRG 690 ==
PROVIDERS: Admitting Provider Family Medicine Geriatric Medicine; Visit Provider Family Medicine Geriatric Medicine
DX: N39.0 Urinary tract infection, site not specified (principal); I48.92 Unspecified atrial flutter; B96.20 Unspecified Escherichia coli [E. coli] as the cause of diseases classified elsewhere; I10 Essential (primary) hypertension; Z79.899 Other long term (current) drug therapy; B35.4 Tinea corporis; J44.9 Chronic obstructive pulmonary disease, unspecified; I48.0 Paroxysmal atrial fibrillation; E66.9 Obesity, unspecified; Z79.01 Long term (current) use of anticoagulants; Z79.82 Long term (current) use of aspirin; Z68.30 Body mass index [BMI] 30.0-30.9, adult; B35.1 Tinea unguium; M79.675 Pain in left toe(s); M79.674 Pain in right toe(s)
CPT/HCPCS: 36415; 80048; 85014; 85018; 85025; 87635; 97110; 97116; 97162; 97166; 97530; 97535; 97802; U0002

== ENCOUNTER → 2020-08-02 | Outpatient (CLI) | payer MEDICARE, OTHER, SELFPAY ==
[2020-08-02 10:08] VITALS: BMI 30.9
[2020-08-02 17:14] LABS: Color, Urine Yellow (Yellow); Glucose, Dipstick Normal (Normal); Ketone-Dipstick Negative (Negative); Leukocyte Esterase-Dipstick 500 /ul (Negative); Nitrite-Dipstick Positive (Negative); Occult Blood-Urine 25 /ul (Negative); Protein-Dipstick 15 mg/dl (Negative); Urine Bilirubin Dipstick Negative (Negative); Urine Clarity Cloudy (Clear); Urine Urobilinogen Normal (Normal)
[2020-08-02 17:20] LABS: Bacteria 4+ /hpf (None Seen); Mucous, Urine RARE /hpf (<or=2+); Red Blood Cells-Urine 0-5 SEEN /hpf (0-5); Squamous Epithelial Cells - UA 5-10 SEEN /hpf (5-10); White Blood Cells 25-50 SEEN /hpf (0-5)
== END | disposition home or self-care (01) ==
LOC: LABSPEC 17:07
PROVIDERS: Visit Provider Nurse Practitioner Family
DX: N39.0 Urinary tract infection, site not specified (principal)
CPT/HCPCS: 81001; 87077; 87086; 87088; 87186

== ENCOUNTER → 2020-08-17 12:04 | Outpatient (CLI) | payer MEDICARE, OTHER, SELFPAY ==
[2020-08-17 11:17] VITALS: BMI 29.6
[2020-08-17 15:27] LABS: Absolute Lymphocyte Count 1.71 X10^3/uL (0.83-4.51); Absolute Neutrophil Count 3.6 X10^3/uL (2.0-7.7); Basophil# 0.03 X10^3/uL; Basophil% 0.5 % (0-1); Eosinophil# 0.27 X10^3/uL; Eosinophils% 4.4 % (0-5); Hematocrit 40.1 % (37-47); Hemoglobin 12.8 g/dL (12.0-15.0); Lymphocyte # 1.71 X10^3/ul (0.83-4.51); Lymphocyte % 28.1 % (19-41); Mean Corp Hgb Conc 31.9 g/dL (32-36); Mean Corpuscular Hgb 29.6 pg (27.0-32.0); Mean Corpuscular Volume 92.6 fL (81-99); Mean Platelet Vol. 10.3 fl (6.2-12.0); Monocyte% 8.2 % (0-10); NRBC Flagged by Analyzer 0 % (0-5); Neutrophil # 3.55 X10^3/uL (2.7-7.7); Neutrophil % 58.3 % (47-70); Platelet Count 247 K/mm3 (150-450); RBC Distribution Width CV 12.8 % (11.6-14.6); RBC Distribution Width SD 43.6 fl (35.1-43.9); Red Blood Count 4.33 M/mm3 (4.2-5.4); White Blood Count 6.1 K/mm3 (4.4-11.0)
[2020-08-17 16:00] LABS: ALB/GLOB Ratio 0.8 RATIO (0.9-2.4); AST(SGOT) 21 U/L (15-37); Alanine Aminotransfer ALT/SGPT 18 U/L (13-56); Albumin, Serum 3.4 g/dL (3.2-5.0); Alkaline Phosphatase 86 U/L (45-117); Anion Gap 7 (5-15); BUN 26 mg/dL (7-18); Calcium,Total 9.2 mg/dL (8.5-10.1); Chloride 102 mmol/L (98-107); Creatinine, Serum 1.18 mg/dL (0.55-1.02); EST Glomerular Filtration Rate 47 mL/min (>60); Est Glom Filt Rate - Afr Amer 56 mL/min (>60); Globulin 4.2 g/dL (2.2-4.2); Glucose 92 mg/dL (74-106); Potassium 4.2 mmol/L (3.5-5.1); Protein, Total 7.6 g/dL (6.4-8.2); Sodium Level 139 mmol/L (136-145); Thyroid Stim Hormone (TSH) 2.37 uIU/mL (0.358-3.74)
== END ==
PROVIDERS: PCP Internal Medicine; Referring Provider Internal Medicine; Visit Provider Internal Medicine
DX: I10 Essential (primary) hypertension (principal)
CPT/HCPCS: 36415; 80053; 84443; 85025

== ENCOUNTER → 2020-08-21 09:49 | Outpatient (CLI) | payer MEDICARE, OTHER, SELFPAY ==
[2020-08-17 11:17] VITALS: BMI 29.6
--- NOTE | 2020-08-21 09:51 | US_ITS ---
STUDY: RENAL ULTRASOUND - COMPLETE REASON FOR EXAM: Female, 84 years old. Recurring UTIs. TECHNIQUE: Ultrasound evaluation of the kidneys was performed with real-time and static frazier-scale imaging. Limited study due to patient''s condition. COMPARISON: None. FINDINGS: RIGHT KIDNEY: Normal location of the right kidney, which is normal in size. The right kidney measures 9.3 cm x 5.1 cm x 4.2 cm. There is a normal cortex of the right kidney. The renal cortex measures 1.2 cm. There is a 1.8 cm x 1.8 cm x 2 cm cyst. There are no right renal calculi. There is no right hydronephrosis. DISTAL RIGHT URETER: There is non-visualization of the distal right ureter. There is no demonstrated right ureterovesical junction calculus. There is no demonstrated right ureteral jet. LEFT KIDNEY: Normal location of the left kidney, which is normal in size. The left kidney measures 9.1 cm x 4.47 x 4.3 cm. There is diffuse thinning of the renal cortex. The renal cortex measures 0.6 cm. There is a 1 cm x 0.9 cm x 0.9 cm cyst in the lower pole. There are no left renal calculi. There is no left hydronephrosis. DISTAL LEFT URETER: There is non-visualization of the distal left ureter. There is no demonstrated left ureterovesical junction calculus. There is no demonstrated left ureteral jet. BLADDER the urinary bladder was not adequately distended for assessment at this time. US/Kidney and Bladder IMPRESSION: Small bilateral renal cysts. Electronically Signed: Von Branham MD at 11:33 EDT , Service support ,
== END ==
PROVIDERS: PCP Internal Medicine; Referring Provider Urology; Visit Provider Urology
DX: N39.0 Urinary tract infection, site not specified (principal)
CPT/HCPCS: 76770

== ENCOUNTER 2020-09-26 16:40 | Emergency (ER) | payer MEDICARE, OTHER, SELFPAY ==
[2020-08-17 11:17] VITALS: BMI 29.6
[2020-09-26 16:41] VITALS: BP 148/78; PULSE 74; RESP 14; TEMP 36.9; O2SAT 96; BMI 29.0
--- NOTE | 2020-09-26 17:02 | CT_ITS ---
STUDY: CT BRAIN WITHOUT CONTRAST REASON FOR EXAM: Female, 84 years old. Fell last night, on blood thinners, hypertension RADIATION DOSAGE (If Supplied By Facility): CTDIvol = ( 44.99 ) mGy, DLP = ( 796.11 ) mGycm TECHNIQUE: Transaxial CT imaging of the brain was performed without administration of intravenous contrast material. Individualized dose optimization techniques were used for this CT. COMPARISON: No relevant priors. FINDINGS: Normal soft tissue structures. Normal calvarium. There is mild cerebral atrophy with widening of the extra-axial spaces and ventricular dilatation. There are areas of decreased attenuation within the white matter tracts of the supratentorial brain, consistent with microvascular disease changes. Normal basal ganglia and thalami. Normal brainstem. Normal cerebellum. There is no intracranial hemorrhage. There are no findings of an acute ischemic infarction. Normal visualized paranasal sinuses. CT/Brain/Head without Contrast IMPRESSION: No acute intracranial hemorrhage or mass effect. Electronically Signed: Bandar Perez MD ([place]) at 17:40 EDT , Service support ,
--- NOTE | 2020-09-26 17:06 | EX.ED.GENINJ ---
HPI History of Present Illness Chief Complaint: Head Injury Informant: patient and family Narrative Narrative: Patient presents after mechanical fall. She was walking on a grassy area that had a plastic mesh holding fresh seed and strong. Her feet got caught in the mesh causing her to fall. She hit the top of her head. No loss of consciousness. She states nothing hurts. However, she is on Eliquis for history of atrial fibrillation. She has no symptoms of nothing makes them better or worse. This was a mechanical fall. She was not syncopal. She had no palpitations. 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 Cognitive impairment Confusion COPD (chronic obstructive pulmonary disease) Elevated blood pressure reading in office with white coat syndrome, without diagnosis of hypertension Essential (primary) hypertension Fatigue Fracture, rib Lung nodule seen on imaging study New onset atrial fibrillation Obesity Paroxysmal atrial fibrillation Recurrent UTI Shortness of breath Home Medications benazepril 20 mg tablet 40 mg PO DAILY 02/02/18 [History Last Taken 05/22/20] acetaminophen 1,000 mg PO Q6H PRN PRN 04/12/18 [History Last Taken 04/10/18] aspirin 81 mg PO DAILY@0800 04/12/18 [History Last Taken 05/22/20] fluticasone propionate 1 spray NASAL DAILY 06/01/18 [History Last Taken Unknown] metoprolol tartrate 100 mg tablet 100 mg PO BID #180 tab 03/26/20 [Rx Last Taken 05/22/20] amlodipine 5 mg PO DAILY 05/22/20 [History Last Taken 05/21/20] apixaban 2.5 mg PO BID 05/22/20 [History Last Taken 05/22/20] montelukast 10 mg PO QHS 05/22/20 [History Last Taken 05/21/20] menthol-zinc oxide 1 applic TOPICAL TID tube 06/09/20 [Rx Last Taken Unknown] nystatin 100,000 unit/gram topical powder 1 applic TOPICAL BID@0600,2200 #4 bottle 08/02/20 [Rx Last Taken Unknown] ascorbic acid (vitamin C) [Vitamin C] 500 mg PO DAILY 09/26/20 [History Last Taken Unknown] hydrochlorothiazide 25 mg PO DAILY 09/26/20 [History Last Taken Unknown] melatonin 3 mg PO QHS 09/26/20 [History Last Taken Unknown] Allergy/AdvReac Type Severity Reaction Status Date / Time amoxicillin Allergy Rash Verified 09/26/20 16:41 cefdinir Allergy Rash Verified 09/26/20 16:41 clavulanic acid Allergy Rash Verified 09/26/20 16:41 [From Augmentin] heparin Allergy Rash Verified 09/26/20 16:41 levofloxacin [From Levaquin] Allergy Rash Verified 09/26/20 16:41 antibiotic Allergy rash Uncoded 09/26/20 16:41 Family History Father Cancer Surgical History H/O basal cell carcinoma excision History of vein stripping Social History Smoking Status: Never smoker alcohol intake: never ROS ROS ED Constitutional Constitutional ED: Denies fever(s) or sweats Eyes Eyes: Denies blurry vision or change in vision ENT ENT ED: Denies rhinorrhea Cardiovascular Cardiovascular: Denies chest pain Respiratory/Chest Respiratory/Chest: Denies cough or dyspnea Gastrointestinal Gastrointestinal: Denies abdominal pain, nausea or vomiting Genitourinary Genitourinary ED: Denies hematuria Musculoskeletal Musculoskeletal: Denies arthralgias, back pain or neck pain Integumentary Denies rash Neurologic Neurologic: Denies headache(s), paresthesias or weakness Hematologic/Lymphatic Hematologic/Lymphatic: Reports easy bleeding and easy bruising EXAM Physical Exam Const Vital Signs: 09/26/20 16:41 09/26/20 17:16 Temperature 98.5 F Temperature Source Oral Pulse Rate 74 Respiratory Rate 14 Respiratory Effort Normal Non-Labored Respiratory Depth Normal Respiratory Pattern Normal Blood Pressure 148/78 H Blood Pressure Mean 101 Pulse Ox 96 Oxygen Delivery Method Room Air Nasal Cannula Positive well nourished and well developed General Appearance ED: well developed and NAD HEENT HEENT Narrative: Despite her injury, I do not see any abrasions or contusions. There is a small skin lesion on the top of her forehead but she states that is chronic and did not occur today. My suspicion is that she had a soft grassy area so has no abrasions. There is also no swelling or tenderness. atraumatic Eyes PERRL and EOMs intact bilaterally Neck full ROM General: Negative for tenderness Chest Wall inspection of chest normal Resp normal respiratory effort Cardio Rate: regular rate GI normal to inspection, nondistended, normoactive bowel sounds Palpation: soft Back/Spine normal to inspection and no thoracic nor lumbar tenderness Extremity normal to inspection and full ROM General Extremety ED: Negative for deformity, edema or tenderness General Extremity: Negative for deformity or edema Neuro oriented x3 Sensorium / Orientation: alert Psych mental status grossly normal Skin no rashes or lesions noted and no wounds MDM MDM MDM Narrative Medical decision making narrative: CT scan shows no acute process. I rechecked the patient. She still feels great. We will get her home. Return with development of headache, nausea vomiting, discoordination or any other issues. Radiography Diagnostic Testing: Radiology Impression Brain CT 09/26/20 17:02 IMPRESSION: No acute intracranial hemorrhage or mass effect. Electronically Signed: Bandar Perez MD ([place]) at 17:40 EDT , Service support , Discharge Plan Triage Chief Complaint: Head Injury ED Provider: Robert Pereira Dx/Rx/DC Orders Clinical Impression: Fall from slip, trip, or stumble, CHI (closed head injury), Coagulopathy Instructions: ED Head Injury (Adult) Prescriptions: No Action benazepril 20 mg tablet 40 mg PO DAILY RF: 0 metoprolol tartrate 100 mg tablet 100 mg PO BID Qty: 180 RF: 3 nystatin 100,000 unit/gram powder 1 applic TOPICAL BID@0600,2200 Qty: 4 RF: 1 aspirin 81 MG tablet 81 mg PO DAILY@0800 RF: 0 acetaminophen 500 MG tablet 1,000 mg PO Q6H PRN PRN (Reason: Pain) RF: 0 fluticasone propionate 1 SPRAY spray,suspension 1 spray NASAL DAILY RF: 0 montelukast 10 MG tablet 10 mg PO QHS RF: 0 amlodipine 5 MG tablet 5 mg PO DAILY RF: 0 apixaban 2.5 MG tablet 2.5 mg PO BID RF: 0 menthol-zinc oxide 1 APPLIC ointment 1 applic TOPICAL TID RF: 0 ascorbic acid (vitamin C) [Vitamin C] 500 mg Tablet 500 mg PO DAILY RF: 0 hydrochlorothiazide 25 mg tablet 25 mg PO DAILY RF: 0 melatonin 3 mg Capsule 3 mg PO QHS RF: 0 Primary Care Provider: Levon White Referrals: Levon White MD [Primary Care Provider] - 3-5 Days Disposition Disposition: Home, Self Care
== END 2020-09-26 18:07 | disposition home or self-care (01) ==
PROVIDERS: Emergency Provider Emergency Medicine; PCP Internal Medicine
DX: S09.90XA Unspecified injury of head, initial encounter (principal); I48.0 Paroxysmal atrial fibrillation; J44.9 Chronic obstructive pulmonary disease, unspecified; I10 Essential (primary) hypertension; E66.9 Obesity, unspecified; Z79.02 Long term (current) use of antithrombotics/antiplatelets; Z79.899 Other long term (current) drug therapy; W01.0XXA Fall on same level from slipping, tripping and stumbling without subsequent striking against object, initial encounter; Y93.01 Activity, walking, marching and hiking; Y92.096 Garden or yard of other non-institutional residence as the place of occurrence of the external cause; Y99.8 Other external cause status
CPT/HCPCS: 70450; 99282

== ENCOUNTER → 2020-11-13 11:18 | Outpatient (CLI) | payer MEDICARE, OTHER, SELFPAY ==
[2020-11-13 12:08] LABS: Absolute Neutrophil Count 4.7 X10^3/uL (2.0-7.7); Basophil# 0.03 X10^3/uL; Basophil% 0.4 % (0-1); Eosinophils% 2.6 % (0-5); Hematocrit 40.8 % (37-47); Lymphocyte % 27.7 % (19-41); Mean Corp Hgb Conc 31.9 g/dL (32-36); Mean Corpuscular Hgb 30.1 pg (27.0-32.0); Mean Corpuscular Volume 94.4 fL (81-99); Mean Platelet Vol. 10.5 fl (6.2-12.0); Monocyte# 0.55 X10^3/uL; Monocyte% 7.2 % (0-10); NRBC Flagged by Analyzer 0 % (0-5); Neutrophil # 4.68 X10^3/uL (2.7-7.7); Neutrophil % 61.7 % (47-70); Platelet Count 260 K/mm3 (150-450); RBC Distribution Width CV 13.1 % (11.6-14.6); RBC Distribution Width SD 45.2 fl (35.1-43.9); Red Blood Count 4.32 M/mm3 (4.2-5.4); White Blood Count 7.6 K/mm3 (4.4-11.0)
[2020-11-13 12:26] LABS: ALB/GLOB Ratio 0.8 RATIO (0.9-2.4); AST(SGOT) 20 U/L (15-37); Alanine Aminotransfer ALT/SGPT 21 U/L (13-56); Albumin, Serum 3.3 g/dL (3.2-5.0); Alkaline Phosphatase 94 U/L (45-117); Anion Gap 6 (5-15); BUN 31 mg/dL (7-18); Calcium,Total 9.2 mg/dL (8.5-10.1); Chloride 104 mmol/L (98-107); Creatinine, Serum 1.15 mg/dL (0.55-1.02); EST Glomerular Filtration Rate 48 mL/min (>60); Est Glom Filt Rate - Afr Amer 58 mL/min (>60); Glucose 150 mg/dL (74-106); Protein, Total 7.3 g/dL (6.4-8.2); Sodium Level 139 mmol/L (136-145)
[2020-11-13 17:47] LABS: Hemoglobin A1c 5.1 % (3.8-5.6)
== END ==
PROVIDERS: PCP Internal Medicine; Visit Provider Internal Medicine
DX: I10 Essential (primary) hypertension (principal); N39.0 Urinary tract infection, site not specified; R73.9 Hyperglycemia, unspecified
CPT/HCPCS: 36415; 80053; 83036; 85025

== ENCOUNTER → 2020-12-03 10:42 | Outpatient (CLI) | payer MEDICARE, OTHER, SELFPAY ==
--- NOTE | 2020-12-03 10:44 | ECHOD_ITS ---
Reason For Study: DYSPNEA/SOB Procedure This was a 2D Doppler, Color Flow transthoracic echocardiogram. Exam performed in department. Left Ventricle Normal LV size. Left ventricular systolic function is normal. The estimated ejection fraction is 60 %. Stage 1 diastolic dysfunction. No regional wall motion abnormalities noted. Right Ventricle Normal RV size. Normal systolic function. Atria Normal left atrium. Normal right atrium. Mitral Valve Normal mitral valve. Mild (1+) eccentric mitral valve insufficiency. Tricuspid Valve Normal tricuspid valve. Mild tricuspid valve insufficiency. Pulmonary artery systolic pressure is 47 mmHg. Aortic Valve Trisinus/trileaflet aortic valve. Pulmonic Valve Normal pulmonic valve. Great Vessels Normal aortic root. The pulmonary artery is normal size. Normal inferior vena cava. Pericardium/Pleural No pericardial effusion. MMode/2D Measurements & Calculations LVIDd: 4.1 cm IVSd: 0.99 cm Ao root diam: 3.2 cm LVIDs: 2.9 cm LVPWd: 1.0 cm RVDd: 3.3 cm FS: 29.7 % LAV(MOD-bp): 33.4 ml LVAd ap4: 27.5 cm2 SV(MOD-sp4): 55.5 ml LAV(MOD-bp) Indexed: 17.4 ml/m2 LVLd ap4: 7.4 cm LAV(MOD-sp2): 34.5 ml EDV(MOD-sp4): 83.1 ml LAV(MOD-sp4): 31.6 ml EDV(sp4-el): 87.2 ml LVAs ap4: 14.1 cm2 LVLs ap4: 6.0 cm ESV(MOD-sp4): 27.5 ml ESV(sp4-el): 28.3 ml EF(MOD-sp4): 66.8 % EF(sp4-el): 67.5 % SV(sp4-el): 58.9 ml LA A4 area: 13.7 cm2 LA dimension(2D): 3.5 cm RA A4 area: 11.4 cm2 Time Measurements MV dec time: 0.19 sec Doppler Measurements & Calculations MV E max frederick: 100.1 cm/sec Lat Peak E' Frederick: 8.7 cm/sec Med Peak E' [place]: 7.2 cm/sec MV A max frederick: 114.1 cm/sec E/E' lat: 11.5 E/E' med: 13.8 MV E/A: 0.88 Ao V2 max: 122.6 cm/sec LV V1 max: 121.2 cm/sec PA V2 max: 92.9 cm/sec Ao max P.0 mmHg LV V1 max P.9 mmHg TR max frederick: 326.7 cm/sec TR max P.7 mmHg ECHO/Echo Complete Interpretation Summary Normal LV size. Left ventricular systolic function is normal. The estimated ejection fraction is 60 %. Mild (1+) eccentric mitral valve insufficiency. Pulmonary artery systolic pressure is 47 mmHg. Stage 1 diastolic dysfunction. Ordering Physician: Sal Simpson/Salbador Dominguez Referring Physician: LAYLA BENSON Performed By: Shelli Chang RDCS
== END ==
PROVIDERS: PCP Internal Medicine; Referring Provider Nurse Practitioner Gerontology; Visit Provider Nurse Practitioner Gerontology
DX: I48.0 Paroxysmal atrial fibrillation (principal); R06.00 Dyspnea, unspecified
CPT/HCPCS: 93306

== ENCOUNTER → 2021-02-19 11:02 | Outpatient (CLI) | payer MEDICARE, OTHER, SELFPAY ==
[2021-02-19 11:04] LABS: Mucous, Urine 0 SEEN /hpf (<or=2+); Red Blood Cells-Urine 0 SEEN /hpf (0-5)
[2021-02-19 12:14] LABS: Absolute Lymphocyte Count 1.93 X10^3/uL (0.83-4.51); Basophil# 0.04 X10^3/uL; Basophil% 0.7 % (0-1); Eosinophil# 0.22 X10^3/uL; Eosinophils% 3.8 % (0-5); Hematocrit 38.2 % (37-47); Hemoglobin 12.6 g/dL (12.0-15.0); Lymphocyte # 1.93 X10^3/ul (0.83-4.51); Lymphocyte % 33.3 % (19-41); Mean Corpuscular Hgb 30.6 pg (27.0-32.0); Mean Corpuscular Volume 92.7 fL (81-99); Monocyte# 0.59 X10^3/uL; Monocyte% 10.2 % (0-10); NRBC Flagged by Analyzer 0 % (0-5); Neutrophil # 2.99 X10^3/uL (2.7-7.7); Neutrophil % 51.7 % (47-70); Platelet Count 255 K/mm3 (150-450); RBC Distribution Width CV 13.5 % (11.6-14.6); RBC Distribution Width SD 45.5 fl (35.1-43.9); Red Blood Count 4.12 M/mm3 (4.2-5.4); White Blood Count 5.8 K/mm3 (4.4-11.0)
[2021-02-19 12:20] LABS: Color, Urine Yellow (Yellow); Glucose, Dipstick Normal (Normal); Ketone-Dipstick Negative (Negative); Leukocyte Esterase-Dipstick 500 /ul (Negative); Nitrite-Dipstick Positive (Negative); Occult Blood-Urine 25 /ul (Negative); Protein-Dipstick 15 mg/dl (Negative); Urine Bilirubin Dipstick Negative (Negative); Urine Clarity Cloudy (Clear); Urine Urobilinogen Normal (Normal)
[2021-02-19 12:26] LABS: White Blood Cells 25-50 SEEN /hpf (0-5)
[2021-02-19 12:27] LABS: Bacteria 2+ /hpf (None Seen); Squamous Epithelial Cells - UA 0-5 SEEN /hpf (5-10)
[2021-02-19 12:55] LABS: ALB/GLOB Ratio 0.8 RATIO (0.9-2.4); AST(SGOT) 16 U/L (15-37); Alanine Aminotransfer ALT/SGPT 17 U/L (13-56); Albumin, Serum 3.2 g/dL (3.2-5.0); Alkaline Phosphatase 82 U/L (45-117); Anion Gap 5 (5-15); BUN 38 mg/dL (7-18); BUN/Creat Ratio 32.8 RATIO (10-20); Calcium,Total 9.8 mg/dL (8.5-10.1); Chloride 106 mmol/L (98-107); Creatinine, Serum 1.16 mg/dL (0.55-1.02); EST Glomerular Filtration Rate 47 mL/min (>60); Est Glom Filt Rate - Afr Amer 57 mL/min (>60); Globulin 3.9 g/dL (2.2-4.2); Glucose 92 mg/dL (74-106); Potassium 4.4 mmol/L (3.5-5.1); Protein, Total 7.1 g/dL (6.4-8.2); Sodium Level 139 mmol/L (136-145)
== END ==
PROVIDERS: PCP Internal Medicine; Visit Provider Internal Medicine
DX: I10 Essential (primary) hypertension (principal); N39.0 Urinary tract infection, site not specified; R41.89 Other symptoms and signs involving cognitive functions and awareness
CPT/HCPCS: 36415; 80053; 81001; 85025; 87086

== ENCOUNTER 2021-03-23 14:16 | Outpatient (CLI) | payer MEDICARE, OTHER, SELFPAY ==
[2021-03-23 14:18] LABS: Mucous, Urine 0 SEEN /hpf (<or=2+)
[2021-03-23 15:29] LABS: Color, Urine Yellow (Yellow); Glucose, Dipstick Normal (Normal); Ketone-Dipstick Negative (Negative); Leukocyte Esterase-Dipstick 500 /ul (Negative); Nitrite-Dipstick Positive (Negative); Occult Blood-Urine 50 /ul (Negative); Protein-Dipstick 30 mg/dl (Negative); Urine Bilirubin Dipstick Negative (Negative); Urine Clarity Cloudy (Clear); Urine Urobilinogen Normal (Normal)
[2021-03-23 15:56] LABS: White Blood Cells >100 SEEN /hpf (0-5)
[2021-03-23 15:58] LABS: Bacteria 1+ /hpf (None Seen); Red Blood Cells-Urine 5-10 SEEN /hpf (0-5); Squamous Epithelial Cells - UA 5-10 SEEN /hpf (5-10)
== END 2021-03-23 23:59 | disposition short-term general hospital (02) ==
LOC: LABSPEC 14:17
PROVIDERS: PCP Internal Medicine; Referring Provider Internal Medicine; Visit Provider Internal Medicine
DX: N39.0 Urinary tract infection, site not specified (principal)
CPT/HCPCS: 81001; 87077; 87086; 87088; 87186

== ENCOUNTER 2021-05-26 10:35 | Outpatient (CLI) | payer MEDICARE, OTHER, SELFPAY ==
--- NOTE | 2021-05-26 10:40 | RAD_ITS ---
STUDY: X-RAY CHEST REASON FOR EXAM: Female, 85 years old. Dyspnea. TECHNIQUE: PA and lateral views of the chest. COMPARISON: 05/22/2020. FINDINGS: There is hyperinflation of the lungs consistent with chronic obstructive lung disease (COPD). No focal mass or infiltrate. There is no demonstrated pleural abnormality. Normal size heart. Normal mediastinum and yanni. Normal visualized pulmonary arteries. Normal visualized aortic arch and descending thoracic aorta. Stable degenerative changes and dextroscoliosis of the thoracic spine. There is degenerative osteoarthritis of the bilateral shoulders. There is no demonstrated abnormality of the visualized soft tissue structures of the upper abdomen. RAD/Chest PA and Lateral IMPRESSION: Question COPD without acute cardiopulmonary disease or major interval change Electronically Signed: Sivakumar Arroyo DO at 23:39 EDT ,
[2021-05-26 11:34] LABS: Absolute Lymphocyte Count 2.07 X10^3/uL (0.83-4.51); Absolute Neutrophil Count 4.3 X10^3/uL (2.0-7.7); Basophil# 0.04 X10^3/uL; Basophil% 0.5 % (0-1); Eosinophil# 0.24 X10^3/uL; Eosinophils% 3.3 % (0-5); Hematocrit 38.4 % (37-47); Hemoglobin 12.8 g/dL (12.0-15.0); Lymphocyte # 2.07 X10^3/ul (0.83-4.51); Lymphocyte % 28.2 % (19-41); Mean Corp Hgb Conc 33.3 g/dL (32-36); Mean Corpuscular Volume 89.9 fL (81-99); Mean Platelet Vol. 10.2 fl (6.2-12.0); Monocyte# 0.63 X10^3/uL; Monocyte% 8.6 % (0-10); NRBC Flagged by Analyzer 0 % (0-5); Neutrophil # 4.34 X10^3/uL (2.7-7.7); Platelet Count 232 K/mm3 (150-450); RBC Distribution Width CV 12.9 % (11.6-14.6); RBC Distribution Width SD 42.5 fl (35.1-43.9); Red Blood Count 4.27 M/mm3 (4.2-5.4); White Blood Count 7.4 K/mm3 (4.4-11.0)
[2021-05-26 11:59] LABS: Anion Gap 4 (5-15); BUN 29 mg/dL (7-18); BUN/Creat Ratio 24.2 RATIO (10-20); Calcium,Total 9.1 mg/dL (8.5-10.1); Chloride 103 mmol/L (98-107); EST Glomerular Filtration Rate 46 mL/min (>60); Est Glom Filt Rate - Afr Amer 55 mL/min (>60); Glucose 107 mg/dL (74-106); Potassium 4.3 mmol/L (3.5-5.1); Sodium Level 139 mmol/L (136-145)
== END 2021-05-26 23:59 | disposition home or self-care (01) ==
LOC: RAD 10:38
PROVIDERS: PCP Internal Medicine; Referring Provider Nurse Practitioner Gerontology; Visit Provider Nurse Practitioner Gerontology
DX: R06.09 Other forms of dyspnea (principal)
CPT/HCPCS: 36415; 71046; 80048; 83880; 85025

== ENCOUNTER 2021-06-16 10:23 | Outpatient (CLI) | payer MEDICARE, OTHER, SELFPAY ==
--- NOTE | 2021-06-16 10:29 | BD_ITS ---
STUDY: DUAL ENERGY X-RAY ABSORPTIOMETRY / DXA REASON FOR EXAM: Female, 85 years old. Osteoporosis TECHNIQUE: Bone Mineral Density (BMD) measurements of lumbar spine and bilateral hips were obtained. COMPARISON: None. FINDINGS: Lumbar Spine (L1-L4): g/cm2 (0.801) / T-score (-2.0) / Z-score (0.8) Findings are suggestive of osteopenia with a moderate fracture risk. Left Femur Total: g/cm2 (0.691) / T-score (-2.1) / Z-score (0.2) Left Femoral Neck: g/cm2 (0.561) / T-score (-2.6) / Z-score (-0.1) Right Femur Total: g/cm2 (0.704) / T-score (-2.0) / Z-score (0.3) Right Femoral Neck: g/cm2 (0.496) / T-score (-3.2) / Z-score (-0.7) BD/Dexa Bone Density Study IMPRESSION: The patient is considered osteoporotic as outlined below according to World Adrien Organization (WHO) criteria with a high fracture risk. Reference Information: The T-score is the number of standard deviations above or below the standard which is normal for young adults at their peak bone mineral density. The World Health Organization (WHO) interprets the T-scores as follows: Above -1 Normal bone density Between -1 and -2.5 Osteopenia Equal to / or below -2.5 Osteoporosis As a practical clinical guideline, osteopenia may be graded as follows: Mild -1 through -1.5 Moderate -1.6 through -2.0 Severe -2.1 through -2.4 The Z-score is the number of standard deviations above or below age-matched controls. A Z-score of less than -1.5 would be considered abnormal. References: 1. NIH Osteoporosis and Related Bone Diseases www osteo.org 2. International Society for Clinical Densitometry www iscd.org 3. National Osteoporosis Foundation www nof.org Electronically Signed: Von Branham MD at 13:47 EDT ,
== END 2021-06-16 23:59 | disposition home or self-care (01) ==
LOC: OPBD 10:24
PROVIDERS: PCP Internal Medicine; Visit Provider Internal Medicine
DX: M81.0 Age-related osteoporosis without current pathological fracture (principal)
CPT/HCPCS: 77080

== ENCOUNTER → 2021-07-14 | Outpatient (CLI) | payer MEDICARE, OTHER, SELFPAY ==
[2021-07-14 10:20] VITALS: BP 149/64; PULSE 58; RESP 16; TEMP 36.2; O2SAT 99; BMI 30.2
[2021-07-14] MEDS: Zoledronic Acid 5 MG 100 ML 300 MG IV (10:29)
[2021-07-14] MEDS: 0.9% NaCl Peripheral Flush Adult/Peds IV (10:29)
[2021-07-14 11:02] VITALS: BP 142/64; PULSE 58; RESP 16; TEMP 36.4; O2SAT 98
== END | disposition home or self-care (01) ==
LOC: MEDOUTP 10:02
PROVIDERS: PCP Internal Medicine; Referring Provider Internal Medicine; Visit Provider Internal Medicine
DX: M81.0 Age-related osteoporosis without current pathological fracture (principal)
CPT/HCPCS: 96365; A4216; J3489

== ENCOUNTER 2021-08-04 10:10 | Emergency (ER) | payer MEDICARE, OTHER, SELFPAY ==
[2021-08-04 10:11] VITALS: BP 137/88; PULSE 53; RESP 17; TEMP 36.2; O2SAT 98; BMI 30.6
[2021-08-04 10:13] VITALS: BP 137/88; PULSE 53; RESP 17; TEMP 36.2; O2SAT 98
[2021-08-04 10:51] LABS: Absolute Lymphocyte Count 1.39 X10^3/uL (0.83-4.51); Basophil# 0.03 X10^3/uL; Basophil% 0.6 % (0-1); Eosinophil# 0.18 X10^3/uL; Eosinophils% 3.5 % (0-5); Hematocrit 37.5 % (37-47); Hemoglobin 12.3 g/dL (12.0-15.0); Lymphocyte # 1.39 X10^3/ul (0.83-4.51); Lymphocyte % 27.1 % (19-41); Mean Corp Hgb Conc 32.8 g/dL (32-36); Mean Corpuscular Hgb 30.5 pg (27.0-32.0); Mean Corpuscular Volume 93.1 fL (81-99); Monocyte# 0.52 X10^3/uL; Monocyte% 10.2 % (0-10); NRBC Flagged by Analyzer 0 % (0-5); Neutrophil # 2.98 X10^3/uL (2.7-7.7); Neutrophil % 58.2 % (47-70); Platelet Count 227 K/mm3 (150-450); RBC Distribution Width CV 12.9 % (11.6-14.6); RBC Distribution Width SD 43.6 fl (35.1-43.9); Red Blood Count 4.03 M/mm3 (4.2-5.4); White Blood Count 5.1 K/mm3 (4.4-11.0)
[2021-08-04 11:07] LABS: Bacteria 0 SEEN /hpf (None Seen); Mucous, Urine 0 SEEN /hpf (<or=2+); Red Blood Cells-Urine 0 SEEN /hpf (0-5)
[2021-08-04 11:09] LABS: Color, Urine Yellow (Yellow); Glucose, Dipstick Normal (Normal); Ketone-Dipstick Negative (Negative); Leukocyte Esterase-Dipstick 500 /ul (Negative); Nitrite-Dipstick Negative (Negative); Occult Blood-Urine 10 /ul (Negative); Protein-Dipstick Negative (Negative); Urine Bilirubin Dipstick Negative (Negative); Urine Clarity Sl. Cloudy (Clear); Urine Urobilinogen Normal (Normal)
--- NOTE | 2021-08-04 11:12 | RAD_ITS ---
STUDY: X-RAY CHEST REASON FOR EXAM: Female, 85 years old. Cough TECHNIQUE: PA and lateral views of the chest. COMPARISON: Comparison is made with prior study 05/26/2021. FINDINGS: Hyperinflation. Stable increased markings at the lung bases suggestive of scarring. There is no demonstrated pleural abnormality. Normal size heart. Normal mediastinum and yanni. Normal visualized pulmonary arteries. There is atherosclerotic calcification of the aortic arch with tortuosity. There is demineralization of the osseous structures. Increased kyphosis. Dextroscoliosis of the upper thoracic spine. There is no demonstrated abnormality of the visualized soft tissue structures of the upper abdomen. RAD/Chest PA and Lateral IMPRESSION: Hyperinflation. Stable increased markings at the lung bases suggestive of scarring. Electronically Signed: Von Branham MD at 12:11 EDT ,
[2021-08-04 11:19] LABS: Squamous Epithelial Cells - UA 0-5 SEEN /hpf (5-10); White Blood Cells 25-50 SEEN /hpf (0-5)
[2021-08-04 11:50] LABS: ALB/GLOB Ratio 0.9 RATIO (0.9-2.4); AST(SGOT) 18 U/L (15-37); Alanine Aminotransfer ALT/SGPT 15 U/L (13-56); Albumin, Serum 3.4 g/dL (3.2-5.0); Alkaline Phosphatase 77 U/L (45-117); Anion Gap 7 (5-15); BUN 34 mg/dL (7-18); BUN/Creat Ratio 26.4 RATIO (10-20); Chloride 103 mmol/L (98-107); Creatinine, Serum 1.29 mg/dL (0.55-1.02); EST Glomerular Filtration Rate 42 mL/min (>60); Est Glom Filt Rate - Afr Amer 51 mL/min (>60); Estimated Creatinine Clearance 29.73 ml/min; Globulin 3.7 g/dL (2.2-4.2); Glucose 104 mg/dL (74-106); Potassium 4.2 mmol/L (3.5-5.1); Protein, Total 7.1 g/dL (6.4-8.2); Sodium Level 137 mmol/L (136-145)
--- NOTE | 2021-08-04 13:20 | EDS_ITS ---
HPI History of Present Illness Chief Complaint: Lower Extremity Injury Detail of Chief Complaint: Also increased confusion and frequency Informant: patient and family Onset/Context/Timing Onset: Days Context: Sudden Onset Timing: Continuous and Waxes and wanes Quality: Confusion, increased urination and pain anterior distal left leg Location: Mentation, neurologic and left lower extremity Current Severity: Mild Maximum Severity: Moderate Worsened by: Unknown Relieved by: Nothing Associated Symptoms Associated Symptoms: History is limited due to dementia Narrative Narrative: Patient is an 85-year-old woman with history of dementia who presents because of concern for DVT left lower extremity by PCP. Also increased confusion with increased urination. Patient has history of recurrent frequent urinary tract infections. She has a history of dementia which limits the history and review of systems. There is been no documented fever. She denies upper respiratory symptoms. She denies shortness of breath. She denies cough. There is been no vomiting or diarrhea. 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 Cognitive impairment Confusion COPD (chronic obstructive pulmonary disease) Dermatitis Elevated blood pressure reading in office with white coat syndrome, without diagnosis of hypertension Essential (primary) hypertension Fall Fatigue Fracture, rib Intertriginous dermatitis associated with moisture Localized swelling of left lower extremity Lung nodule seen on imaging study New onset atrial fibrillation Obesity Osteoporosis Paroxysmal atrial fibrillation Recurrent UTI Shortness of breath Traumatic hematoma of right elbow Traumatic hematoma of right upper arm Home Medications acetaminophen 1,000 mg PO Q6H PRN PRN 04/12/18 [History Last Taken 04/10/18] aspirin 81 mg PO DAILY@0800 04/12/18 [History Last Taken 05/22/20] fluticasone propionate 1 spray NASAL DAILY 06/01/18 [History Last Taken Unknown] ascorbic acid (vitamin C) [Vitamin C] 500 mg PO DAILY 09/26/20 [History Last Taken Unknown] melatonin 3 mg PO QHS 09/26/20 [History Last Taken Unknown] metoprolol tartrate 100 mg tablet 100 mg PO BID #180 tab 01/18/21 [Rx Last Taken Unknown] nystatin 100,000 unit/gram topical powder 1 applic TOPICAL BID #60 g 12/17/21 [Rx Last Taken Unknown] fosfomycin tromethamine 3 gram oral packet 3 g PO ONCE #1 ea 03/25/21 [Rx Last Taken Unknown] benazepril 40 mg tablet 40 mg PO DAILY #90 tab 04/20/21 [Rx Last Taken Unknown] montelukast 10 mg tablet 10 mg PO QHS #90 tab 04/20/21 [Rx Last Taken Unknown] apixaban 2.5 mg tablet 2.5 mg PO BID #180 tab 05/14/21 [Rx Last Taken Unknown] hydrochlorothiazide 25 mg tablet 25 mg PO DAILY #90 tab 05/14/21 [Rx Last Taken Unknown] amlodipine 10 mg tablet 10 mg PO DAILY #90 tab 05/26/21 [Rx Last Taken Unknown] sulfamethoxazole-trimethoprim 1 tab PO BID #10 tablet 08/04/21 [Rx Last Taken Unknown] Allergy/AdvReac Type Severity Reaction Status Date / Time amoxicillin Allergy Rash Verified 08/04/21 10:11 cefdinir Allergy Rash Verified 08/04/21 10:11 clavulanic acid Allergy Rash Verified 08/04/21 10:11 [From Augmentin] heparin Allergy Rash Verified 08/04/21 10:11 levofloxacin [From Levaquin] Allergy Rash Verified 08/04/21 10:11 antibiotic Allergy rash Uncoded 08/04/21 10:11 Family History Father Cancer Surgical History H/O basal cell carcinoma excision History of vein stripping Social History (Updated 08/04/21 @ 13:[address] Christ Dailey MD) household members: family Smoking Status: Never smoker alcohol intake: never substance use type: does not use ROS ROS ED Review of Systems ROS Unobtainable: due to mental status Constitutional Constitutional ED: Denies chills, fever(s), subjective, sweats or weight loss Eyes Eyes: Denies change in vision or diplopia ENT ENT ED: Denies ear pain, rhinorrhea or sore throat Cardiovascular Cardiovascular: Denies chest pain or palpitations Respiratory/Chest Respiratory/Chest: Reports cough; Denies dyspnea, dyspnea on exertion or sputum Gastrointestinal Gastrointestinal: Denies abdominal pain, diarrhea, nausea or vomiting Genitourinary Genitourinary ED: Reports urinary frequency; Denies dysuria or hematuria Musculoskeletal Musculoskeletal: Reports other Details: Pain and swelling anterior left leg, patient on anticoagulant ; Denies arthralgias, back pain, myalgias or neck pain Integumentary Denies abscess or rash Neurologic Neurologic: Reports weakness; Denies headache(s) Endocrine Endocrinology: Denies polydipsia or polyuria EXAM Physical Exam Const Vital Signs: 08/04/21 10:11 08/04/21 10:13 Temperature 97.2 F L 97.2 F L Temperature Source Temporal Temporal Pulse Rate 53 L 53 L Respiratory Rate 17 17 Blood Pressure 137/88 H 137/88 H Blood Pressure Mean 104 104 Pulse Ox 98 98 Oxygen Delivery Method Room Air Room Air Positive well nourished, well developed and obese General Appearance ED: well developed and NAD; Negative for cyanotic, diaph oretic or pallor Nutritional Appearance: obese HEENT Reports TM's clear and dry mucous membranes HEENT Narrative: Nares patent. Postpharyngeal erythema exudate. Uvula midline. Negative for trauma or tenderness Tympanic Membrane ED: Yes TM's clear Mouth ED: Yes dry mucous membranes Mouth: dry mucous membranes Eyes PERRL and EOMs intact bilaterally General Eye ED: Negative for pale conjunctiva or scleral icterus Neck no lymphadenopathy, supple and no JVD Chest Wall inspection of chest normal Resp normal respiratory effort and clear to auscultation bilaterally Cardio regular rate, regular rhythm, S1 normal heart sound, S2 normal heart sound and no murmurs GI normal to inspection, nondistended, normoactive bowel sounds, non-tender and non-distended Palpation: soft Back/Spine no CVA tenderness Thoracic Spine / Upper Back: Negative for thoracic spinal tenderness or paraspinal muscle tenderness Extremity normal to inspection Extremity Narrative: There appears to be a hematoma anterior distal left leg. The area was aspirated and returned blood. General Extremety ED: Yes edema and tenderness General Extremity: edema Neuro No oriented x3, CN's II-XII intact bilaterally and no sensory deficits noted Sensorium / Orientation: alert and orientation impaired Motor Exam: strength 5/5 throughout Psych mental status grossly normal Skin no rashes or lesions noted General Skin Exam: Negative for jaundice or pallor MDM MDM MDM Narrative Medical decision making narrative: With history of frequent urinary tract infections and urgency will obtain UA to rule out urinary tract infection. CBC to assess white count and rule out anemia. Competence metabolic panel to assess renal function and electrolytes. Need to evaluate for metabolic or infectious etiology of her altered mental status. The fluid that was aspirated from the hematoma was sent to rule out infection. The anterior distal left leg was prepped. An 18-gauge needle was inserted into the presumed hematoma. Aspirated dark bloody material. This was sent for culture and gram stain. Lab Data Attestation: I reviewed the patient's lab results. Lab results narrative: White count is normal. H&H is unremarkable. Creatinine is slightly evaded 1.29 urine reveals pyuria without bacteria. Nitrites is negative. No bacteria was seen. Will treat with 1 dose of Rocephin and will send urine culture. Labs: Laboratory Results - last 24 hr 08/04/21 08/04/21 08/04/21 10:41 10:41 11:00 WBC 5.1 RBC 4.03 L Hgb 12.3 Hct 37.5 MCV 93.1 MCH 30.5 MCHC 32.8 RDW Std Deviation 43.6 RDW Coeff of Dave 12.9 Plt Count 227 MPV 10.0 Immature Gran % (Auto) 0.400 Neut % (Auto) 58.2 Lymph % (Auto) 27.1 [place] % (Auto) 10.2 H Eos % (Auto) 3.5 Baso % (Auto) 0.6 Absolute Neuts (auto) 3.0 Absolute Lymphs (auto) 1.39 Nucleated RBC % 0 Sodium 137 Potassium 4.2 Chloride 103 Carbon Dioxide 27.0 Anion Gap 7 BUN 34 H Creatinine 1.29 H Estim Creat Clear Calc 29.73 Est GFR (MDRD) Af Amer 51 L Est GFR (MDRD) Non-Af 42 L BUN/Creatinine Ratio 26.4 H Glucose 104 Calcium 9.0 Total Bilirubin 0.70 AST 18 ALT 15 Alkaline Phosphatase 77 Total Protein 7.1 Albumin 3.4 Globulin 3.7 Albumin/Globulin Ratio 0.9 Urine Color Yellow Urine Clarity Sl. Cloudy Urine pH 6.0 Ur Specific [place] 1.020 Urine Protein Negative Urine Glucose (UA) Normal Urine Ketones Negative Urine Occult Blood 10 H Urine Nitrite Negative Urine Bilirubin Negative Urine Urobilinogen Normal Ur Leukocyte Esterase 500 H Urine RBC 0 SEEN Urine WBC 25-50 SEEN Ur Squamous Epith Cells 0-5 SEEN Urine Bacteria 0 SEEN Urine Mucus 0 SEEN Radiography Chest X-Ray - ED: 2 View, Read by ED Physician (The chest x-ray was independently reviewed and interpreted by me as negative for any acute process. There is chronic changes. There is blunting of the costophrenic angle on the right and left. There is no obvious effusion. There is no obvious infiltrate noted. Osseous structures are unremarkabl), Unchanged, Heart, Mediastinum, Bony Structures, No Acute Disease and Chronic Changes Diagnostic Testing: Clinical Impression(s) from Imaging Studies Chest X-Ray 08/04/21 11:12 IMPRESSION: Hyperinflation. Stable increased markings at the lung bases suggestive of scarring. Electronically Signed: Von Branham MD at 12:11 EDT , Discharge Plan Triage Chief Complaint: Lower Extremity Injury ED Provider: Christ Dailey Dx/Rx/DC Orders Clinical Impression: Pyuria, Acute on chronic alteration in mental status, Hematoma of left lower extremity Instructions: ED CYSTITIS Female Adult Prescriptions: New sulfamethoxazole-trimethoprim [sulfamethoxazole-trimethoprim] 1 TABLET tablet 1 tab PO BID Qty: 10 RF: 0 No Action nystatin 100,000 unit/gram powder 1 applic topical BID Qty: 60 RF: 2 amlodipine 10 mg tablet 10 mg PO DAILY Qty: 90 RF: 3 aspirin 81 MG tablet 81 mg PO DAILY@0800 RF: 0 acetaminophen 500 MG tablet 1,000 mg PO Q6H PRN PRN (Reason: Pain) RF: 0 fluticasone propionate 1 SPRAY spray,suspension 1 spray NASAL DAILY RF: 0 ascorbic acid (vitamin C) [Vitamin C] 500 mg Tablet 500 mg PO DAILY RF: 0 melatonin 3 mg Capsule 3 mg PO QHS RF: 0 metoprolol tartrate 100 mg tablet 100 mg PO BID Qty: 180 RF: 3 fosfomycin tromethamine 3 gram packet 3 g PO ONCE Qty: 1 RF: 0 benazepril 40 mg tablet 40 mg PO DAILY Qty: 90 RF: 1 montelukast 10 mg tablet 10 mg PO QHS Qty: 90 RF: 1 hydrochlorothiazide 25 mg tablet 25 mg PO DAILY Qty: 90 RF: 1 apixaban 2.5 mg tablet 2.5 mg PO BID Qty: 180 RF: 1 Primary Care Provider: Levon White Referrals: Levon White MD [Primary Care Provider] - 3-5 Days if not improving Disposition Disposition: Home, Self Care
[2021-08-04 13:41] VITALS: BP 138/69; PULSE 60; RESP 16; O2SAT 97
[2021-08-04] MEDS: Smz/Tmp Ds Tablet 1 TABLET PO (13:44)
== END 2021-08-04 13:50 | disposition home or self-care (01) ==
PROVIDERS: Emergency Provider Emergency Medicine; PCP Internal Medicine; Visit Provider Emergency Medicine
DX: S80.12XA Contusion of left lower leg, initial encounter (principal); F03.90 Unspecified dementia, unspecified severity, without behavioral disturbance, psychotic disturbance, mood disturbance, and anxiety; J44.9 Chronic obstructive pulmonary disease, unspecified; I48.0 Paroxysmal atrial fibrillation; X58.XXXA Exposure to other specified factors, initial encounter; N39.0 Urinary tract infection, site not specified; I10 Essential (primary) hypertension; E66.9 Obesity, unspecified; M81.0 Age-related osteoporosis without current pathological fracture
CPT/HCPCS: 10160; 36415; 71046; 80048; 80053; 81001; 85025; 87070; 87077; 87086; 87088; 87186; 87205; 99283; A4216

== ENCOUNTER → 2021-08-04 | Outpatient (CLI) | payer MEDICARE, OTHER, SELFPAY ==
[2021-08-04 10:25] LABS: Bacteria 0 SEEN /hpf (None Seen); Mucous, Urine 0 SEEN /hpf (<or=2+); Red Blood Cells-Urine 0 SEEN /hpf (0-5)
[2021-08-04 12:22] LABS: Absolute Lymphocyte Count 1.39 X10^3/uL (0.83-4.51); Absolute Neutrophil Count 2.8 X10^3/uL (2.0-7.7); Basophil# 0.02 X10^3/uL; Basophil% 0.4 % (0-1); Eosinophil# 0.18 X10^3/uL; Eosinophils% 3.6 % (0-5); Hematocrit 37.5 % (37-47); Hemoglobin 12.2 g/dL (12.0-15.0); Lymphocyte # 1.39 X10^3/ul (0.83-4.51); Lymphocyte % 28.1 % (19-41); Mean Corp Hgb Conc 32.5 g/dL (32-36); Mean Corpuscular Hgb 30.1 pg (27.0-32.0); Mean Corpuscular Volume 92.6 fL (81-99); Mean Platelet Vol. 10.5 fl (6.2-12.0); Monocyte% 10.1 % (0-10); NRBC Flagged by Analyzer 0 % (0-5); Neutrophil # 2.84 X10^3/uL (2.7-7.7); Neutrophil % 57.4 % (47-70); Platelet Count 253 K/mm3 (150-450); RBC Distribution Width CV 12.8 % (11.6-14.6); RBC Distribution Width SD 43.3 fl (35.1-43.9); Red Blood Count 4.05 M/mm3 (4.2-5.4)
[2021-08-04 12:23] LABS: Color, Urine Yellow (Yellow); Glucose, Dipstick Normal (Normal); Ketone-Dipstick Negative (Negative); Leukocyte Esterase-Dipstick 500 /ul (Negative); Nitrite-Dipstick Negative (Negative); Occult Blood-Urine 10 /ul (Negative); Protein-Dipstick Negative (Negative); Specific Gravity, Urine 1.015 (1.002-1.030); Urine Bilirubin Dipstick Negative (Negative); Urine Clarity Sl. Cloudy (Clear); Urine Urobilinogen Normal (Normal)
[2021-08-04 12:34] LABS: Squamous Epithelial Cells - UA 5-10 SEEN /hpf (5-10); White Blood Cells 25-50 SEEN /hpf (0-5)
[2021-08-04 12:54] LABS: Anion Gap 7 (5-15); BUN 32 mg/dL (7-18); BUN/Creat Ratio 25.6 RATIO (10-20); Calcium,Total 9.1 mg/dL (8.5-10.1); Chloride 103 mmol/L (98-107); Creatinine, Serum 1.25 mg/dL (0.55-1.02); EST Glomerular Filtration Rate 43 mL/min (>60); Est Glom Filt Rate - Afr Amer 53 mL/min (>60); Glucose 98 mg/dL (74-106); Potassium 4.1 mmol/L (3.5-5.1); Sodium Level 138 mmol/L (136-145)
== END | disposition home or self-care (01) ==
LOC: BIMLAB 09:10
PROVIDERS: PCP Internal Medicine; Visit Provider Internal Medicine
DX: I10 Essential (primary) hypertension (principal); N39.0 Urinary tract infection, site not specified
CPT/HCPCS: 36415; 80048; 81001; 85025

== ENCOUNTER 2021-11-21 18:16 | Inpatient (IN) | payer MEDICARE, OTHER, SELFPAY ==
[2021-11-21] VITALS (8 sets, daily range): BP systolic 141–151; BP diastolic 71–93; PULSE 71–83; RESP 18–20; TEMP 36.4–37.1; O2SAT 93–98; BMI 30.9; BMI 27.2
--- NOTE | 2021-11-21 18:38 | EX.ED.DYSGE1 ---
HPI <BOLIVAR Escamilla - Last Filed: 11/21/21 21:46> History of Present Illness Chief Complaint: Shortness of Breath Narrative Narrative: 86-year-old female with PMH of HTN, A. fib, COPD, dementia presents with cough and generalized weakness. She is 10 days into the course of having COVID-19. She tested positive at home. She is having a continue productive cough and poor p.o. intake. Her daughter states she had to help her get dressed and shower and that she was very weak and had difficulty with ADLs. No recent falls. Daughter states she had been declining even prior to this illness and this has made it worse. Family thinks she needs to go to rehab. 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 Cognitive impairment Confusion COPD (chronic obstructive pulmonary disease) COVID-19 (11/16/21) Dermatitis Elevated blood pressure reading in office with white coat syndrome, without diagnosis of hypertension Essential (primary) hypertension Fall Fatigue Fracture, rib Intertriginous dermatitis associated with moisture Localized swelling of left lower extremity Lung nodule seen on imaging study New onset atrial fibrillation Obesity Osteoporosis Paroxysmal atrial fibrillation Recurrent UTI Shortness of breath Traumatic hematoma of right elbow Traumatic hematoma of right upper arm Home Medications acetaminophen 500 mg tablet 1,000 mg PO Q6H PRN PRN Pain 04/12/18 [History Last Taken 04/10/18] aspirin 81 mg tablet,delayed release 81 mg PO DAILY@0800 [facility] 04/12/18 [History Last Taken 11/21/21] fluticasone propionate 50 mcg/actuation nasal spray,suspension 1 spray NASAL DAILY Allergies 06/01/18 [History Last Taken 11/21/21] ascorbic acid (vitamin C) 500 mg tablet (Vitamin C) 500 mg PO DAILY 09/26/20 [History Last Taken Unknown] melatonin 3 mg capsule 3 mg PO QHS 09/26/20 [History Last Taken Unknown] nystatin 100,000 unit/gram topical powder 1 applic topical BID #60 grams 02/19/21 [Rx Last Taken Unknown] amlodipine 10 mg tablet 10 mg PO DAILY BP #90 tabs 05/26/21 [Rx Last Taken 11/21/21] Handicap Placard #1 ea 09/23/21 [Rx Last Taken Unknown] walker (Ultra-Light Rollator misc) #1 ea 09/23/21 [Rx Last Taken Unknown] benazepril 40 mg tablet 40 mg PO DAILY Blood Pressure #90 tabs 10/11/21 [Rx Last Taken 11/21/21] metoprolol tartrate 100 mg tablet 100 mg PO BID Blood pressure #180 tabs 11/09/21 [Rx Last Taken 11/21/21] apixaban 2.5 mg tablet (Eliquis) 2.5 mg PO BID BLOOD THINNER 11/21/21 [History Last Taken 11/21/21] hydrochlorothiazide 25 mg tablet 25 mg PO DAILY WATER PILL 11/21/21 [History Last Taken 11/21/21] montelukast 10 mg tablet 10 mg PO QHS ALLERGIES 11/21/21 [History Last Taken Unknown] Allergy/AdvReac Type Severity Reaction Status Date / Time amoxicillin Allergy Rash Verified 08/04/21 10:11 cefdinir Allergy Rash Verified 08/04/21 10:11 clavulanic acid Allergy Rash Verified 08/04/21 10:11 [From Augmentin] heparin Allergy Rash Verified 08/04/21 10:11 levofloxacin [From Levaquin] Allergy Rash Verified 08/04/21 10:11 antibiotic Allergy rash Uncoded 08/04/21 10:11 Family History Father Cancer Surgical History H/O basal cell carcinoma excision History of vein stripping Social History household members: family Smoking Status: Never smoker alcohol intake: never substance use type: does not use ROS <BOLIVAR Escamilla - Last Filed: 11/21/21 21:46> ROS ED ROS Narrative Constitutional: Positive for chills, malaise. Eyes: Negative for visual change. ENT: Negative for sore throat, ear pain, rhinorrhea. CVS: Negative for palpitations, chest pain, syncope. Respiratory: Positive for cough. Negative for shortness of breath. GI: Negative for abdominal pain, nausea, vomiting, diarrhea, constipation, melena, hematochezia. : Negative for dysuria, hematuria or frequency. Neuro: Negative for headache, motor/sensory dysfunction. Skin: Negative for rash, abscess, or wound. Musc: Negative for joint pain, swelling, trauma. Heme: Negative for easy bruising, bleeding, lymphadenopathy. EXAM <BOLIVAR Escamilla - Last Filed: 11/21/21 21:46> Physical Exam Narrative Exam Narrative: CONST: Patient sitting in no acute distress. EYES: Normal inspection. ENT: Normal inspection, dry mucous membranes. NECK: Normal inspection. RESP: No respiratory distress, CTAB. CVS: Regular rate and rhythm, no murmur, no gallop. ABD: Soft and nontender, no guarding or rebound, nondistended. SKIN: Color normal, no rash, warm, dry, intact. EXTREMITIES: Normal appearance, no pedal edema. NEURO: Alert to self, place. Moving all extremities. PSYCH: Normal affect. Const Vital Signs: 11/21/21 18:18 11/21/21 18:33 11/21/21 19:45 Temperature 97.5 F L 98.3 F Temperature Source Oral Oral Pulse Rate 83 71 Respiratory Rate 20 H 18 Respiratory Effort Normal Respiratory Depth Normal Respiratory Pattern Normal Blood Pressure 142/84 H 143/71 H Blood Pressure Mean 103 95 Pulse Ox 94 94 Oxygen Delivery Method Room Air Room Air Room Air <Dr. Josef Ferrer MD - Last Filed: 11/21/21 23:25> Physical Exam Const Vital Signs: 11/21/21 18:18 11/21/21 18:33 11/21/21 19:45 Temperature 97.5 F L 98.3 F Temperature Source Oral Oral Pulse Rate 83 71 Respiratory Rate 20 H 18 Respiratory Effort Normal Respiratory Depth Normal Respiratory Pattern Normal Blood Pressure 142/84 H 143/71 H Blood Pressure Mean 103 95 Pulse Ox 94 94 Oxygen Delivery Method Room Air Room Air Room Air MDM <BOLIVAR Escamilla - Last Filed: 11/21/21 21:46> [facility] MDM Narrative Medical decision making narrative: Patient is COVID-positive on day 10 presents with generalized weakness and decreased p.o. intake. She appears well and nontoxic. Vital signs are within normal limits. She has dry mucous membranes with an otherwise unremarkable exam. Patient has normal white count 5.5 but elevated bands. BMP is unremarkable. UA is consistent with UTI. It was cultured and she was treated with IV Rocephin. Covid-19 test is still positive and the CXR shows no acute process. Patient requires admission for weakness, COVID, UTI. She is in no respiratory distress and remains on room air and is out of the window for acute COVID treatments. Lab Data Attestation: I reviewed the patient's lab results. Labs: Laboratory Results - last 24 hr 11/21/21 11/21/21 11/21/21 19:15 19:15 20:15 WBC Cancelled 5.5 Corrected WBC Cancelled RBC Cancelled 4.09 L Hgb Cancelled 12.8 Hct Cancelled 37.5 MCV Cancelled 91.7 MCH Cancelled 31.3 MCHC Cancelled 34.1 RDW Std Deviation Cancelled 44.6 H RDW Coeff of Dave Cancelled 13.2 Plt Count Cancelled 184 MPV Cancelled 9.9 Immature Gran % (Auto) Cancelled 2.200 H Neut % (Auto) Cancelled 60.4 Lymph % (Auto) Cancelled 23.8 Barry % (Auto) Cancelled 12.5 H Eos % (Auto) Cancelled 0.7 Baso % (Auto) Cancelled 0.4 Absolute Neuts (auto) Cancelled 3.3 Absolute Lymphs (auto) Cancelled 1.30 Total Counted Cancelled Neutrophils % (Manual) Cancelled Band Neutrophils % Cancelled Lymphocytes % (Manual) Cancelled Monocytes % (Manual) Cancelled Eosinophils % (Manual) Cancelled Basophils % (Manual) Cancelled Metamyelocytes % Cancelled Myelocytes % Cancelled Promyelocytes % Cancelled Blast Cells % Cancelled Plasma Cell % (Manual) Cancelled Other Cells % Cancelled Nucleated RBC % Cancelled 0 Nucleated RBCs/100 WBC Cancelled Differential Comment Cancelled Diff Path Review Cancelled Hypersegmented Neuts Cancelled Atypical Lymphocytes Cancelled Reactive Lymphocytes Cancelled Smudge Cells Cancelled Toxic Granulation Cancelled Toxic Vacuolation Cancelled Dohle Bodies Cancelled [place] Rods Cancelled Platelet Estimate Cancelled Plt Morphology Comment Cancelled RBC Morphology Cancelled Polychromasia Cancelled Hypochromasia Cancelled Poikilocytosis Cancelled Basophilic Stippling Cancelled Anisocytosis Cancelled Microcytosis Cancelled Macrocytosis Cancelled Spherocytes Cancelled Sickle Cells Cancelled Target Cells Cancelled Tear Drop Cells Cancelled Ovalocytes Cancelled Stomatocytes Cancelled [place] Bodies Cancelled May Cells Cancelled Bite Cells Cancelled Crenated Cell Cancelled Acanthocytes (Spur) Cancelled Rouleaux Cancelled Schistocytes Cancelled Sodium Cancelled Potassium Cancelled Chloride Cancelled Carbon Dioxide Cancelled Anion Gap Cancelled BUN Cancelled Creatinine Cancelled Estim Creat Clear Calc Cancelled Est GFR (MDRD) Af Amer Cancelled Est GFR (MDRD) Non-Af Cancelled BUN/Creatinine Ratio Cancelled Glucose Cancelled Calcium Cancelled Urine Color Urine Clarity Urine pH Ur Specific [place] Urine Protein Urine Glucose (UA) Urine Ketones Urine Occult Blood Urine Nitrite Urine Bilirubin Urine Urobilinogen Ur Leukocyte Esterase Urine RBC Urine WBC Ur Squamous Epith Cells Urine Bacteria Urine Mucus 11/21/21 11/21/21 20:15 21:04 WBC Corrected WBC RBC Hgb Hct MCV MCH MCHC RDW Std Deviation RDW Coeff of Dave Plt Count MPV Immature Gran % (Auto) Neut % (Auto) Lymph % (Auto) Barry % (Auto) Eos % (Auto) Baso % (Auto) Absolute Neuts (auto) Absolute Lymphs (auto) Total Counted Neutrophils % (Manual) Band Neutrophils % Lymphocytes % (Manual) Monocytes % (Manual) Eosinophils % (Manual) Basophils % (Manual) Metamyelocytes % Myelocytes % Promyelocytes % Blast Cells % Plasma Cell % (Manual) Other Cells % Nucleated RBC % Nucleated RBCs/100 WBC Differential Comment Diff Path Review Hypersegmented Neuts Atypical Lymphocytes Reactive Lymphocytes Smudge Cells Toxic Granulation Toxic Vacuolation Dohle Bodies [place] Rods Platelet Estimate Plt Morphology Comment RBC Morphology Polychromasia Hypochromasia Poikilocytosis Basophilic Stippling Anisocytosis Microcytosis Macrocytosis Spherocytes Sickle Cells Target Cells Tear Drop Cells Ovalocytes Stomatocytes [place] Bodies Will Cells Bite Cells Crenated Cell Acanthocytes (Spur) Rouleaux Schistocytes Sodium 139 Potassium 4.1 Chloride 103 Carbon Dioxide 28.0 Anion Gap 8 BUN 31 H Creatinine 1.14 H Estim Creat Clear Calc 33.06 Est GFR (MDRD) Af Amer 58 L Est GFR (MDRD) Non-Af 48 L BUN/Creatinine Ratio 27.2 H Glucose 103 Calcium 8.2 L Urine Color Yellow Urine Clarity Sl. Cloudy Urine pH 6.0 Ur Specific [place] 1.015 Urine Protein 15 H Urine Glucose (UA) Normal Urine Ketones Negative Urine Occult Blood 25 H Urine Nitrite Positive H Urine Bilirubin Negative Urine Urobilinogen Normal Ur Leukocyte Esterase 500 H Urine RBC 0 SEEN Urine WBC 10-25 SEEN Ur Squamous Epith Cells 5-10 SEEN Urine Bacteria 1+ Urine Mucus 0 SEEN Radiography Chest X-Ray - ED: 1 View, Read by ED Physician, Read by Radiologist, Normal, Heart, Lungs, Mediastinum, Bony Structures and No Acute Disease Diagnostic Testing: Clinical Impression(s) from Imaging Studies Chest X-Ray 11/21/21 18:40 IMPRESSION: There are no acute findings. Electronically Signed: Neno Wright MD at 18:53 EDT , ED attending interpretation of 1-view chest shows normal heart size, no acute infiltrate, edema, or effusion. <Dr. Josef Ferrer MD - Last Filed: 11/21/21 23:25> MDM MDM Narrative Medical decision making narrative: Patient is COVID-positive on day 10 presents with generalized weakness and decreased p.o. intake. She appears well and nontoxic. Vital signs are within normal limits. She has dry mucous membranes with an otherwise unremarkable exam. Patient has normal white count 5.5 but elevated bands. BMP is unremarkable. UA is consistent with UTI. It was cultured and she was treated with IV Rocephin. Covid-19 test is still positive and the CXR shows no acute process. Patient requires admission for weakness, COVID, UTI. She is in no respiratory distress and remains on room air and is out of the window for acute COVID treatments. Seen and evaluated independently and in conjunction with physician assistant professor nurse education. Agree with notes above unless documented otherwise. Agree patient with persistent COVID symptoms, generalized weakness, heart is regular without tachycardia, she has some transmitted upper airway rhonchorous breath sounds bilaterally, trachea midline, no respiratory distress with a negative chest x-ray 1 view on my interpretation. Hopefully will improve with urinary tract infection treatment. Given degree of weakness will admit to hospital. Lab Data Labs: Laboratory Results - last 24 hr 0911/21/21 11/21/21 19:15 19:15 20:15 WBC Cancelled 5.5 Corrected WBC Cancelled RBC Cancelled 4.09 L Hgb Cancelled 12.8 Hct Cancelled 37.5 MCV Cancelled 91.7 MCH Cancelled 31.3 MCHC Cancelled 34.1 RDW Std Deviation Cancelled 44.6 H RDW Coeff of Dave Cancelled 13.2 Plt Count Cancelled 184 MPV Cancelled 9.9 Immature Gran % (Auto) Cancelled 2.200 H Neut % (Auto) Cancelled 60.4 Lymph % (Auto) Cancelled 23.8 Barry % (Auto) Cancelled 12.5 H Eos % (Auto) Cancelled 0.7 Baso % (Auto) Cancelled 0.4 Absolute Neuts (auto) Cancelled 3.3 Absolute Lymphs (auto) Cancelled 1.30 Total Counted Cancelled Neutrophils % (Manual) Cancelled Band Neutrophils % Cancelled Lymphocytes % (Manual) Cancelled Monocytes % (Manual) Cancelled Eosinophils % (Manual) Cancelled Basophils % (Manual) Cancelled Metamyelocytes % Cancelled Myelocytes % Cancelled Promyelocytes % Cancelled Blast Cells % Cancelled Plasma Cell % (Manual) Cancelled Other Cells % Cancelled Nucleated RBC % Cancelled 0 Nucleated RBCs/100 WBC Cancelled Differential Comment Cancelled Diff Path Review Cancelled Hypersegmented Neuts Cancelled Atypical Lymphocytes Cancelled Reactive Lymphocytes Cancelled Smudge Cells Cancelled Toxic Granulation Cancelled Toxic Vacuolation Cancelled Dohle Bodies Cancelled [place] Rods Cancelled Platelet Estimate Cancelled Plt Morphology Comment Cancelled RBC Morphology Cancelled Polychromasia Cancelled Hypochromasia Cancelled Poikilocytosis Cancelled Basophilic Stippling Cancelled Anisocytosis Cancelled Microcytosis Cancelled Macrocytosis Cancelled Spherocytes Cancelled Sickle Cells Cancelled Target Cells Cancelled Tear Drop Cells Cancelled Ovalocytes Cancelled Stomatocytes Cancelled [place] Bodies Cancelled May Cells Cancelled Bite Cells Cancelled Crenated Cell Cancelled Acanthocytes (Spur) Cancelled Rouleaux Cancelled Schistocytes Cancelled Sodium Cancelled Potassium Cancelled Chloride Cancelled Carbon Dioxide Cancelled Anion Gap Cancelled BUN Cancelled Creatinine Cancelled Estim Creat Clear Calc Cancelled Est GFR (MDRD) Af Amer Cancelled Est GFR (MDRD) Non-Af Cancelled BUN/Creatinine Ratio Cancelled Glucose Cancelled Calcium Cancelled Urine Color Urine Clarity Urine pH Ur Specific [place] Urine Protein Urine Glucose (UA) Urine Ketones Urine Occult Blood Urine Nitrite Urine Bilirubin Urine Urobilinogen Ur Leukocyte Esterase Urine RBC Urine WBC Ur Squamous Epith Cells Urine Bacteria Urine Mucus 11/21/21 11/21/21 20:15 21:04 WBC Corrected WBC RBC Hgb Hct MCV MCH MCHC RDW Std Deviation RDW Coeff of Dave Plt Count MPV Immature Gran % (Auto) Neut % (Auto) Lymph % (Auto) Barry % (Auto) Eos % (Auto) Baso % (Auto) Absolute Neuts (auto) Absolute Lymphs (auto) Total Counted Neutrophils % (Manual) Band Neutrophils % Lymphocytes % (Manual) Monocytes % (Manual) Eosinophils % (Manual) Basophils % (Manual) Metamyelocytes % Myelocytes % Promyelocytes % Blast Cells % Plasma Cell % (Manual) Other Cells % Nucleated RBC % Nucleated RBCs/100 WBC Differential Comment Diff Path Review Hypersegmented Neuts Atypical Lymphocytes Reactive Lymphocytes Smudge Cells Toxic Granulation Toxic Vacuolation Dohle Bodies [place] Rods Platelet Estimate Plt Morphology Comment RBC Morphology Polychromasia Hypochromasia Poikilocytosis Basophilic Stippling Anisocytosis Microcytosis Macrocytosis Spherocytes Sickle Cells Target Cells Tear Drop Cells Ovalocytes Stomatocytes [place] Bodies Will Cells Bite Cells Crenated Cell Acanthocytes (Spur) Rouleaux Schistocytes Sodium 139 Potassium 4.1 Chloride 103 Carbon Dioxide 28.0 Anion Gap 8 BUN 31 H Creatinine 1.14 H Estim Creat Clear Calc 33.06 Est GFR (MDRD) Af Amer 58 L Est GFR (MDRD) Non-Af 48 L BUN/Creatinine Ratio 27.2 H Glucose 103 Calcium 8.2 L Urine Color Yellow Urine Clarity Sl. Cloudy Urine pH 6.0 Ur Specific [place] 1.015 Urine Protein 15 H Urine Glucose (UA) Normal Urine Ketones Negative Urine Occult Blood 25 H Urine Nitrite Positive H Urine Bilirubin Negative Urine Urobilinogen Normal Ur Leukocyte Esterase 500 H Urine RBC 0 SEEN Urine WBC 10-25 SEEN Ur Squamous Epith Cells 5-10 SEEN Urine Bacteria 1+ Urine Mucus 0 SEEN Radiography Diagnostic Testing: Clinical Impression(s) from Imaging Studies Chest X-Ray 11/21/21 18:40 IMPRESSION: There are no acute findings. Electronically Signed: Neno Wright MD at 18:53 EDT Reading Location ID and State: [facility] [place] / [place] , Service support , Discharge Plan Dx/Rx/DC Orders Clinical Impression: Generalized weakness, Acute UTI, COVID-19 Disposition Disposition: Acute Care Hospital [facility] Discharge Date/Time: 11/21/21 22:35
--- NOTE | 2021-11-21 18:40 | RAD_ITS ---
STUDY: X-RAY CHEST REASON FOR EXAM: Female, 86 years old. Pneumonia weakness cough TECHNIQUE: XR Chest 2 Views COMPARISON: 3 FINDINGS: Right lower lobe atelectasis or scarring. Normal size heart. Normal mediastinum and yanni. Normal visualized pulmonary arteries. There is atherosclerotic calcification of the aortic arch with tortuosity. There are diffuse degenerative changes of the visualized thoracic spine. There is degenerative osteoarthritis of the bilateral shoulders. There is no demonstrated abnormality of the visualized soft tissue structures of the upper abdomen. RAD/Chest PA and Lateral IMPRESSION: There are no acute findings. Electronically Signed: Neno Wright MD at 18:53 EDT ,
[2021-11-21] MEDS: 0.9% Normal Saline 1,000 ML 999 ML IV (19:00)
[2021-11-21 20:21] LABS: Absolute Neutrophil Count 3.3 X10^3/uL (2.0-7.7); Basophil# 0.02 X10^3/uL; Basophil% 0.4 % (0-1); Eosinophil# 0.04 X10^3/uL; Eosinophils% 0.7 % (0-5); Hematocrit 37.5 % (37-47); Hemoglobin 12.8 g/dL (12.0-15.0); Lymphocyte % 23.8 % (19-41); Mean Corp Hgb Conc 34.1 g/dL (32-36); Mean Corpuscular Hgb 31.3 pg (27.0-32.0); Mean Corpuscular Volume 91.7 fL (81-99); Mean Platelet Vol. 9.9 fl (6.2-12.0); Monocyte# 0.68 X10^3/uL; Monocyte% 12.5 % (0-10); NRBC Flagged by Analyzer 0 % (0-5); Neutrophil % 60.4 % (47-70); Platelet Count 184 K/mm3 (150-450); RBC Distribution Width CV 13.2 % (11.6-14.6); RBC Distribution Width SD 44.6 fl (35.1-43.9); Red Blood Count 4.09 M/mm3 (4.2-5.4); White Blood Count 5.5 K/mm3 (4.4-11.0)
[2021-11-21 20:44] LABS: Anion Gap 8 (5-15); BUN 31 mg/dL (7-18); BUN/Creat Ratio 27.2 RATIO (10-20); Calcium,Total 8.2 mg/dL (8.5-10.1); Chloride 103 mmol/L (98-107); Creatinine, Serum 1.14 mg/dL (0.55-1.02); EST Glomerular Filtration Rate 48 mL/min (>60); Est Glom Filt Rate - Afr Amer 58 mL/min (>60); Estimated Creatinine Clearance 33.06 ml/min; Glucose 103 mg/dL (74-106); Potassium 4.1 mmol/L (3.5-5.1); Sodium Level 139 mmol/L (136-145)
[2021-11-21 21:08] LABS: Mucous, Urine 0 SEEN /hpf (<or=2+); Red Blood Cells-Urine 0 SEEN /hpf (0-5)
[2021-11-21 21:09] LABS: Color, Urine Yellow (Yellow); Glucose, Dipstick Normal (Normal); Ketone-Dipstick Negative (Negative); Leukocyte Esterase-Dipstick 500 /ul (Negative); Nitrite-Dipstick Positive (Negative); Occult Blood-Urine 25 /ul (Negative); Protein-Dipstick 15 mg/dl (Negative); Specific Gravity, Urine 1.015 (1.002-1.030); Urine Bilirubin Dipstick Negative (Negative); Urine Clarity Sl. Cloudy (Clear); Urine Urobilinogen Normal (Normal)
[2021-11-21 21:24] LABS: Bacteria 1+ /hpf (None Seen); Squamous Epithelial Cells - UA 5-10 SEEN /hpf (5-10); White Blood Cells 10-25 SEEN /hpf (0-5)
[2021-11-21] MEDS: Ceftriaxone 1 GM/50 ML BAG IV (21:38)
--- NOTE | 2021-11-21 21:51 | HP.PCM.HOS_ITS ---
HPI - General General Date of Admission: 11/21/21 Date of Service: 11/21/21 Chief Complaint: weakness HPI Narrative ANDREAS MARROQUIN, is a 86 F with a significant history of paroxysmal atrial fibrillation; recurrent UTIs and hypertension who presents to the emergency department with at least 2 days history of progressively worsening weakness. Reportedly patient was too weak that she had to be lifted to the shower. Patient's son take care of her but at this time patient requires more care done her son can handle. Reportedly patient has been urinating less often. She has a wet cough. Reportedly patient swallows her sputum. Patient has nausea. She vomited but reportedly it was due to a big pill that the patient swallowed. Patient has dyspnea on exertion. 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 Cognitive impairment Confusion COPD (chronic obstructive pulmonary disease) COVID-19 (11/16/21) Dermatitis Elevated blood pressure reading in office with white coat syndrome, without di agnosis of hypertension Essential (primary) hypertension Fall Fatigue Fracture, rib Intertriginous dermatitis associated with moisture Localized swelling of left lower extremity Lung nodule seen on imaging study New onset atrial fibrillation Obesity Osteoporosis Paroxysmal atrial fibrillation Recurrent UTI Shortness of breath Traumatic hematoma of right elbow Traumatic hematoma of right upper arm Home Medications acetaminophen 500 mg tablet 1,000 mg PO Q6H PRN PRN Pain 04/12/18 [History Last Taken 04/10/18] aspirin 81 mg tablet,delayed release 81 mg PO DAILY@0800 [facility] 04/12/18 [History Last Taken 11/21/21] fluticasone propionate 50 mcg/actuation nasal spray,suspension 1 spray NASAL DAILY Allergies 06/01/18 [History Last Taken 11/21/21] ascorbic acid (vitamin C) 500 mg tablet (Vitamin C) 500 mg PO DAILY 09/26/20 [History Last Taken Unknown] melatonin 3 mg capsule 3 mg PO QHS 09/26/20 [History Last Taken Unknown] nystatin 100,000 unit/gram topical powder 1 applic topical BID #60 grams 02/19/21 [Rx Last Taken Unknown] amlodipine 10 mg tablet 10 mg PO DAILY BP #90 tabs 05/26/21 [Rx Last Taken 11/21/21] Handicap Placard #1 ea 09/23/21 [Rx Last Taken Unknown] walker (Ultra-Light Rollator misc) #1 ea 09/23/21 [Rx Last Taken Unknown] benazepril 40 mg tablet 40 mg PO DAILY Blood Pressure #90 tabs 10/11/21 [Rx Last Taken 11/21/21] metoprolol tartrate 100 mg tablet 100 mg PO BID Blood pressure #180 tabs 11/09/21 [Rx Last Taken 11/21/21] apixaban 2.5 mg tablet (Eliquis) 2.5 mg PO BID BLOOD THINNER 11/21/21 [History Last Taken 11/21/21] hydrochlorothiazide 25 mg tablet 25 mg PO DAILY WATER PILL 11/21/21 [History Last Taken 11/21/21] montelukast 10 mg tablet 10 mg PO QHS ALLERGIES 11/21/21 [History Last Taken Unknown] Allergy/AdvReac Type Severity Reaction Status Date / Time amoxicillin Allergy Rash Verified 08/04/21 10:11 cefdinir Allergy Rash Verified 08/04/21 10:11 clavulanic acid Allergy Rash Verified 08/04/21 10:11 [From Augmentin] heparin Allergy Rash Verified 08/04/21 10:11 levofloxacin [From Levaquin] Allergy Rash Verified 08/04/21 10:11 antibiotic Allergy rash Uncoded 08/04/21 10:11 Family History Father Cancer Surgical History H/O basal cell carcinoma excision History of vein stripping Social History household members: family Smoking Status: Never smoker alcohol intake: never substance use type: does not use ROS ROS Narrative Pertinent positives and pertinent negatives as noted in HPI. All other systems were reviewed and are negative Vital Signs Vital Signs Vital Signs: 11/21/21 18:18 11/21/21 18:33 11/21/21 19:45 Temperature 97.5 F L 98.3 F Temperature Source Oral Oral Pulse Rate 83 71 Respiratory Rate 20 H 18 Respiratory Effort Normal Respiratory Depth Normal Respiratory Pattern Normal Blood Pressure 142/84 H 143/71 H Blood Pressure Mean 103 95 Pulse Ox 94 94 Oxygen Delivery Method Room Air Room Air Room Air Weight Weight: 84.368 kg Body Mass Index (BMI) 30.9 Physical Exam Narrative Physical exam: General: Well-nourished, well-developed. Head: Normocephalic, atraumatic, no tenderness Eyes: Vision is grossly intact. EOMI ENT, no trauma, dry mucous membranes, no rhinorrhea Neck: Nontender, full range of motion, no spinal tenderness, deformities, step- off CVS: Regular rate and rhythm. S1-S2 present. No murmur, gallop or rub. Respiratory : clear to auscultation bilaterally, chest wall nontender, no wheezing Abdomen: Soft, nontender, nondistended, normal bowel sounds, no masses : Deferred Back: Nontender, no CVA tenderness. Extremities: Nontender full range of motion, no trauma Skin: Normal color, no trauma, abrasions Neuro: Alert, oriented, cranial nerves II through XII grossly intact. Psychiatry: Normal mood. Normal affect. Not depressed. Not anxious. Results Lab / Micro Data Result Diagrams: 11/21/21 20:15 11/21/21 20:15 Labs: Laboratory Results - last 24 hr 11/21/21 19:15: WBC Cancelled, Corrected WBC Cancelled, RBC Cancelled, Hgb Cancelled, Hct Cancelled, MCV Cancelled, MCH Cancelled, MCHC Cancelled, RDW Std Deviation Cancelled, RDW Coeff of Dave Cancelled, Plt Count Cancelled, MPV Cancelled, Immature Gran % (Auto) Cancelled, Neut % (Auto) Cancelled, Lymph % (Auto) Cancelled, [place] % (Auto) Cancelled, Eos % (Auto) Cancelled, Baso % (Auto) Cancelled, Absolute Neuts (auto) Cancelled, Absolute Lymphs (auto) Cancelled, Total Counted Cancelled, Neutrophils % (Manual) Cancelled, Band Neutrophils % Cancelled, Lymphocytes % (Manual) Cancelled, Monocytes % (Manual) Cancelled, Eosinophils % (Manual) Cancelled, Basophils % (Manual) Cancelled, Metamyelocytes % Cancelled, Myelocytes % Cancelled, Promyelocytes % Cancelled, Blast Cells % Cancelled, Plasma Cell % (Manual) Cancelled, Other Cells % Cancelled, Nucleated RBC % Cancelled, Nucleated RBCs/100 WBC Cancelled, Differential Comment Cancel led, Diff Path Review Cancelled, Hypersegmented Neuts Cancelled, Atypical Lymphocytes Cancelled, Reactive Lymphocytes Cancelled, Smudge Cells Cancelled, Toxic Granulation Cancelled, Toxic Vacuolation Cancelled, Dohle Bodies Cancelled, [place] Rods Cancelled, Platelet Estimate Cancelled, Plt Morphology Comment Cancelled, RBC Morphology Cancelled, Polychromasia Cancelled, Hypochromasia Cancelled, Poikilocytosis Cancelled, Basophilic Stippling Cancelled, Anisocytosis Cancelled, Microcytosis Cancelled, Macrocytosis Cancelled, Spherocytes Cancelled, Sickle Cells Cancelled, Target Cells Cancelled, Tear Drop Cells Cancelled, Ovalocytes Cancelled, Stomatocytes Cancelled, [place] Bodies Cancelled, [place] Cells Cancelled, Bite Cells Cancelled, Crenated Cell Cancelled, Acanthocytes (Spur) Cancelled, Rouleaux Cancelled, Schistocytes Cancelled 11/21/21 19:15: Sodium Cancelled, Potassium Cancelled, Chloride Cancelled, Carbon Dioxide Cancelled, Anion Gap Cancelled, BUN Cancelled, Creatinine Cancelled, Estim Creat Clear Calc Cancelled, Est GFR (MDRD) Af Amer Cancelled, Est GFR (MDRD) Non-Af Cancelled, BUN/Creatinine Ratio Cancelled, Glucose Cancelled, Calcium Cancelled 11/21/21 20:15: WBC 5.5, RBC 4.09 L, Hgb 12.8, Hct 37.5, MCV 91.7, MCH 31.3, MCHC 34.1, RDW Std Deviation 44.6 H, RDW Coeff of Dave 13.2, Plt Count 184, MPV 9.9, Immature Gran % (Auto) 2.200 H, Neut % (Auto) 60.4, Lymph % (Auto) 23.8, [place] % (Auto) 12.5 H, Eos % (Auto) 0.7, Baso % (Auto) 0.4, Absolute Neuts (auto) 3.3, Absolute Lymphs (auto) 1.30, Nucleated RBC % 0 11/21/21 20:15: Sodium 139, Potassium 4.1, Chloride 103, Carbon Dioxide 28.0, Anion Gap 8, BUN 31 H, Creatinine 1.14 H, Estim Creat Clear Calc 33.06, Est GFR (MDRD) Af Amer 58 L, Est GFR (MDRD) Non-Af 48 L, BUN/Creatinine Ratio 27.2 H, Glucose 103, Calcium 8.2 L 11/21/21 21:04: Urine Color Yellow, Urine Clarity Sl. Cloudy, Urine pH 6.0, Ur Specific [place] 1.015, Urine Protein 15 H, Urine Glucose (UA) Normal, Urine Ketones Negative, Urine Occult Blood 25 H, Urine Nitrite Positive H, Urine Bilirubin Negative, Urine Urobilinogen Normal, Ur Leukocyte Esterase 500 H, Urine RBC 0 SEEN, Urine WBC 10-25 SEEN, Ur Squamous Epith Cells 5-10 SEEN, Urine Bacteria 1+, Urine Mucus 0 SEEN Micro: Microbiology 11/21/21 20:55 Nasal Secretion SARS-CoV-2 Antigen (Rapid) - Final SARS-CoV-2 (COVID 19) Radiology Impression Chest X-Ray 11/21/21 18:40 IMPRESSION: There are no acute findings. Electronically Signed: Neno Wright MD at 18:53 EDT Reading Location ID and State: [facility] [place] / [place] , Service support , Assessment & Plan Assessment/Plan (1) Acute UTI: (2) Generalized weakness: (3) COVID-19: PLAN: Plan Acute UTI Urinalysis showed 15 mg/dl protein; positive urine occult blood; positive nitrite; positive leukocyte esterase; positive nitrites. Urine culture on 08/04/2021 was positive for Proteus mirabilis which was pansen sitive. Ceftriaxone started emergency department and continued. CBC reviewed showed normal white count but with bandemia of 2.2%. Trend CBC. Generalized weakness PT and OT to work with patient for strengthening balance training. Of note family is sitting for possible transitional care rehabilitation after hospitalization. Case management consult. COVID-19 infection Reportedly 10 days ago patient tested positive for COVID. On this presentation her COVID test is still positive. Chest x-ray was visualized and independently interpreted. Chest x-ray with no acute cardiopulmonary process I agree with radiologist interpretation. History of atrial fibrillation Stable Home apixaban continued. Hypertension Blood pressure is not within goal Stable. Home blood pressure medication continued Trend blood pressure and adjust blood pressure medications. CKD stage IIIb Stable Trend BMP. Dehydration Patient with dry mucous membrane IV fluids ordered. Trend BMP. DVT prophylaxis Not indicated as patient is on Eliquis for A. fib and Eliquis has been continued Charges/Coding Visit Charges Inpatient E&M: 41717 Init Hosp L3
[2021-11-22] VITALS (15 sets, daily range): BP systolic 119–141; BP diastolic 63–71; PULSE 63–75; RESP 18–22; TEMP 36.4–37.1; O2SAT 93–96
[2021-11-22] MEDS: 0.9% Normal Saline 1,000 ML 75 ML IV ×2 (01:27→14:40)
[2021-11-22] MEDS: APIXABAN 2.5 MG TABLET PO ×3 (01:29→20:59)
[2021-11-22] MEDS: Montelukast 10 MG Tablet PO ×2 (01:29→20:59)
[2021-11-22] MEDS: Metoprolol Tartrate 100 MG Tablet PO ×3 (01:29→20:59)
[2021-11-22] MEDS: Nystatin Powder 15gm Bottle 1 APPLIC TOPICAL ×3 (01:30→20:59)
[2021-11-22 05:36] LABS: Absolute Lymphocyte Count 1.22 X10^3/uL (0.83-4.51); Absolute Neutrophil Count 2.4 X10^3/uL (2.0-7.7); Basophil# 0.02 X10^3/uL; Basophil% 0.5 % (0-1); Eosinophil# 0.08 X10^3/uL; Eosinophils% 1.8 % (0-5); Hematocrit 34.9 % (37-47); Hemoglobin 11.5 g/dL (12.0-15.0); Lymphocyte # 1.22 X10^3/ul (0.83-4.51); Lymphocyte % 27.7 % (19-41); Mean Corpuscular Hgb 30.5 pg (27.0-32.0); Mean Corpuscular Volume 92.6 fL (81-99); Mean Platelet Vol. 9.6 fl (6.2-12.0); Monocyte# 0.62 X10^3/uL; Monocyte% 14.1 % (0-10); NRBC Flagged by Analyzer 0 % (0-5); Neutrophil # 2.39 X10^3/uL (2.7-7.7); Neutrophil % 54.1 % (47-70); Platelet Count 173 K/mm3 (150-450); RBC Distribution Width CV 13.2 % (11.6-14.6); RBC Distribution Width SD 44.6 fl (35.1-43.9); Red Blood Count 3.77 M/mm3 (4.2-5.4); White Blood Count 4.4 K/mm3 (4.4-11.0)
[2021-11-22 05:49] LABS: Anion Gap 5 (5-15); BUN 26 mg/dL (7-18); BUN/Creat Ratio 25.2 RATIO (10-20); Calcium,Total 8.2 mg/dL (8.5-10.1); Chloride 102 mmol/L (98-107); Creatinine, Serum 1.03 mg/dL (0.55-1.02); EST Glomerular Filtration Rate 54 mL/min (>60); Est Glom Filt Rate - Afr Amer 66 mL/min (>60); Estimated Creatinine Clearance 41.01 ml/min; Glucose 97 mg/dL (74-106); Potassium 3.8 mmol/L (3.5-5.1); Sodium Level 137 mmol/L (136-145)
--- NOTE | 2021-11-22 07:15 | PCM.PN.HOSP ---
Subjective Subjective Feels ok. Objective Data Objective Data Vital Signs: Vital Signs Temp Pulse Resp BP Pulse Ox O2 Del Method 37.1 C 63 22 H 125/71 H 93 Room Air 11/22/21 06:50 11/22/21 06:50 11/22/21 06:50 11/22/21 06:50 11/22/21 06:50 11/22/21 06:50 Oxygen Delivery Method Room Air Weight: 81.2 kg Body Mass Index (BMI) 27.2 Intake & Output: Intake and Output for Last 24 Hours 11/20/21 11/21/21 11/22/21 23:59 23:59 23:59 Intake Total 1050 / 1083.75 33.75 / 33.75 Output Total 150 / 150 Balance 1050 / 1083.75 -116.25 / -116.25 Lab / Micro Data Result Diagrams: 11/22/21 05:19 11/22/21 05:19 Labs: Laboratory Results - last 24 hr 11/21/21 19:15: WBC Cancelled, Corrected WBC Cancelled, RBC Cancelled, Hgb Cancelled, Hct Cancelled, MCV Cancelled, MCH Cancelled, MCHC Cancelled, RDW Std Deviation Cancelled, RDW Coeff of Dave Cancelled, Plt Count Cancelled, MPV Cancelled, Immature Gran % (Auto) Cancelled, Neut % (Auto) Cancelled, Lymph % (Auto) Cancelled, [place] % (Auto) Cancelled, Eos % (Auto) Cancelled, Baso % (Auto) Cancelled, Absolute Neuts (auto) Cancelled, Absolute Lymphs (auto) Cancelled, Total Counted Cancelled, Neutrophils % (Manual) Cancelled, Band Neutrophils % Cancelled, Lymphocytes % (Manual) Cancelled, Monocytes % (Manual) Cancelled, Eosinophils % (Manual) Cancelled, Basophils % (Manual) Cancelled, Metamyelocytes % Cancelled, Myelocytes % Cancelled, Promyelocytes % Cancelled, Blast Cells % Cancelled, Plasma Cell % (Manual) Cancelled, Other Cells % Cancelled, Nucleated RBC % Cancelled, Nucleated RBCs/100 WBC Cancelled, Differential Comment Cancelled, Diff Path Review Cancelled, Hypersegmented Neuts Cancelled, Atypical Lymphocytes Cancelled, Reactive Lymphocytes Cancelled, Smudge Cells Cancelled, Toxic Granulation Cancelled, Toxic Vacuolation Cancelled, Dohle Bodies Cancelled, [place] Rods Cancelled, Platelet Estimate Cancelled, Plt Morphology Comment Cancelled, RBC Morphology Cancelled, Polychromasia Cancelled, Hypochromasia Cancelled, Poikilocytosis Cancelled, Basophilic Stippling Cancelled, Anisocytosis Cancelled, Microcytosis Cancelled, Macrocytosis Cancelled, Spherocytes Cancelled, Sickle Cells Cancelled, Target Cells Cancelled, Tear Drop Cells Cancelled, Ovalocytes Cancelled, Stomatocytes Cancelled, Fischer-[place] Bodies Cancelled, [place] Cells Cancelled, Bite Cells Cancelled, Crenated Cell Cancelled, Acanthocytes (Spur) Cancelled, Rouleaux Cancelled, Schistocytes Cancelled 11/21/21 19:15: Sodium Cancelled, Potassium Cancelled, Chloride Cancelled, Carbon Dioxide Cancelled, Anion Gap Cancelled, BUN Cancelled, Creatinine Cancelled, Estim Creat Clear Calc Cancelled, Est GFR (MDRD) Af Amer Cancelled, Est GFR (MDRD) Non-Af Cancelled, BUN/Creatinine Ratio Cancelled, Glucose Cancelled, Calcium Cancelled 11/21/21 20:15: WBC 5.5, RBC 4.09 L, Hgb 12.8, Hct 37.5, MCV 91.7, MCH 31.3, MCHC 34.1, RDW Std Deviation 44.6 H, RDW Coeff of Dave 13.2, Plt Count 184, MPV 9.9, Immature Gran % (Auto) 2.200 H, Neut % (Auto) 60.4, Lymph % (Auto) 23.8, [place] % (Auto) 12.5 H, Eos % (Auto) 0.7, Baso % (Auto) 0.4, Absolute Neuts (auto) 3.3, Absolute Lymphs (auto) 1.30, Nucleated RBC % 0 11/21/21 20:15: Sodium 139, Potassium 4.1, Chloride 103, Carbon Dioxide 28.0, Anion Gap 8, BUN 31 H, Creatinine 1.14 H, Estim Creat Clear Calc 33.06, Est GFR (MDRD) Af Amer 58 L, Est GFR (MDRD) Non-Af 48 L, BUN/Creatinine Ratio 27.2 H, Glucose 103, Calcium 8.2 L 11/21/21 21:04: Urine Color Yellow, Urine Clarity Sl. Cloudy, Urine pH 6.0, Ur Specific [place] 1.015, Urine Protein 15 H, Urine Glucose (UA) Normal, Urine Ketones Negative, Urine Occult Blood 25 H, Urine Nitrite Positive H, Urine Bilirubin Negative, Urine Urobilinogen Normal, Ur Leukocyte Esterase 500 H, Urine RBC 0 SEEN, Urine WBC 10-25 SEEN, Ur Squamous Epith Cells 5-10 SEEN, Urine Bacteria 1+, Urine Mucus 0 SEEN 11/22/21 05:19: WBC 4.4, RBC 3.77 L, Hgb 11.5 L, Hct 34.9 L, MCV 92.6, MCH 30.5, MCHC 33.0, RDW Std Deviation 44.6 H, RDW Coeff of Dave 13.2, Plt Count 173, MPV 9.6, Immature Gran % (Auto) 1.800 H, Neut % (Auto) 54.1, Lymph % (Auto) 27.7, [place] % (Auto) 14.1 H, Eos % (Auto) 1.8, Baso % (Auto) 0.5, Absolute Neuts (auto) 2.4, Absolute Lymphs (auto) 1.22, Nucleated RBC % 0 11/22/21 05:19: Sodium 137, Potassium 3.8, Chloride 102, Carbon Dioxide 30.0, Anion Gap 5, BUN 26 H, Creatinine 1.03 H, Estim Creat Clear Calc 41.01, Est GFR (MDRD) Af Amer 66, Est GFR (MDRD) Non-Af 54 L, BUN/Creatinine Ratio 25.2 H, Glucose 97, Calcium 8.2 L Micro: Microbiology 11/21/21 20:55 Nasal Secretion SARS-CoV-2 Antigen (Rapid) - Final SARS-CoV-2 (COVID 19) Radiography Diagnostic Testing: Radiology Impression Chest X-Ray 11/21/21 18:40 IMPRESSION: There are no acute findings. Electronically Signed: Neno Wright MD at 18:53 EDT , Physical Exam Const alert and no apparent distress HEENT head/scalp atraumatic and moist oral mucous membranes Resp normal respiratory effort, no retractions and no use of accessory muscles Cardio regular rate, regular rhythm, S1 normal heart sound and S2 normal heart sound GI normal to inspection, nondistended, normoactive bowel sounds, soft to palpation and non-tender Extremity normal to inspection Assessment & Plan Assessment/Plan (1) Acute UTI: PLAN: Unlikely. UA unimpressive for infection. On CTX. Will continue for now, but if Cx negative, would DC abx. (2) Generalized weakness: PLAN: Generalized weakness PT and OT to work with patient for strengthening balance training. Of note family is sitting for possible transitional care rehabilitation after hospitalization. Case management consult. (3) COVID-19: PLAN: Reportedly 10 days ago patient tested positive for COVID. On this presentation her COVID test is still positive. Chest x-ray reviewed and showed hyperinflated airways with a chronic changes. No change from August 04 Not hypoxic, no change in chest x-ray. Of the window for remdesivir. Given clinical stability, no treatment with steroids at this time. PLAN: Plan Chronic conditions: atrial fibrillation: Stable. Home apixaban continued. Hypertension: Stable. Continue ACEi, HCTZ, metoprolol tartrate CKD stage IIIb: Stable. Dehydration Patient with dry mucous membrane IV fluids ordered. Trend BMP. DVT prophylaxis Not indicated as patient is on Eliquis for A. fib and Eliquis has been continued Charges/Coding Visit Charges Inpatient E&M: 73885 Subs Hosp L2
[2021-11-22] MEDS: Aspirin E.C. 81 MG Tablet PO (09:19)
[2021-11-22] MEDS: hydroCHLOROthiazide 25 MG Tablet PO (09:20)
[2021-11-22] MEDS: Fluticasone 0.05% 1 SPRAY NASAL.SRY NASAL (09:20)
[2021-11-22] MEDS: Lisinopril 40 MG Tablet PO (09:21)
[2021-11-22] MEDS: Ascorbic Acid 500 MG Tablet PO (09:21)
[2021-11-22] MEDS: amLODIPine 10 MG Tablet PO (09:21)
--- NOTE | 2021-11-22 10:43 | CASEMGMT ---
LYN GUEVARA Assessment: Face to Face with pt for initial transition planning/care coordination assessment. LYN GUEVARA introduced self and role at [facility], pt voices understanding and consents to assessment. Pt is A/O x 2. Pt unaware of year or president. After assessment completed, tc made to pt son to answer assessment as pt answers were different. Assessment completed based on son's answers. Care providers, pharmacy, and demographics verified/updated. Admitting Dx: UTI, debility PCP:Christopher Specialists:[facility]erred [facility]acy: [facility] Insurance: [facility], [place] Prescription Benefit: yes LW/HPOA: Pt has LW/DPOA and pt son states he is the DPOA. Javier Sanabria. He will bring in documents tomorrow. LNOK: Javier Sanabria, son; Sherita Garibay, amarisr Living Arrangements: Pt lives with son in a single story house with 3 steps to enter with a rail. Pt son states he has been off work for 5 weeks to care for pt. He states pt is I in ADL's and he is present for bathing for safety. Transportation: Pt son or granddtrs transport pt to medical appts. Pt does not drive. DME/HHC/SNF: Pt has a FWW, cane and medic alert at home. Pt has not had HHC and has been to [facility] TCU as well as [facility] outpatient therapy. Pt son states they initially wanted pt to go to TCU but realizes d/t COVID she cannot. He states he would like to take her home and keep her out of a facility. Discussed HHC options with him. He states he would look at list and discuss with his dtr. He is aware therapy has not yet worked with the patient. Pt son states no further concerns/needs. CM to follow. Advised pt to ask CM if any further question/concerns/needs arise, voices understanding. Pt Goal: Home, Pt son goal: Home with possible HHC Plan: TBD pending therapy nathan.
--- NOTE | 2021-11-22 14:14 | CASEMGMT ---
LYN GUEVARA in to pt room, pt son at bedside. Provided him with the list of [facility] providers including quality and resource use data and consistent with the patient?s preferred geographic region, medical needs, and insurance network were provided from the [employer] Guide. He asked if this information could be shared with his dtr Madeleine. Texted this information to her via [employer]. He states he will be back tomorrow morning and he would like to give the preference of agency at that time. Pt agreeable to this plan. LYN GUEVARA to check back.
--- NOTE | 2021-11-22 15:23 | CHAPLAIN ---
Type of Pastoral Visit _x__ Initial Visit ___ Follow-up Visit ___ On-call Visit ___ General Patient Visit ___ Spiritual Assessment ___ Family Conference ___ Bereavement ___ Rapid Response ___ Code Blue ___ Other (describe below) Pastoral Care Referral From __x_ Patient ___ Family ___ Nurse ___ Physician ___ Income Tax Investigator ___ Vibrator Equipment Tester ___ Other (describe below) Sacrament/Intervention _x__ Active listening ___ Anointing ___ Synagogue ___ Bereavement ___ Communion ___ Raissa exploration ___ ___ Life review _x__ Prayer ___ Reconciliation ___ Sacrament of Sick ___ Supportive presence ___ Wedding ___ Other (describe below) Pastoral Comments patient just answers the basic questions; pt is otherwise pretty quiet; son of patient is in room and he answers some questions for her; prayer is welcomed; no other needs identified
[2021-11-22] MEDS: Ceftriaxone 1 GM/50 ML BAG IV (20:59)
[2021-11-23 02:15] VITALS: BP 120/66; PULSE 86; RESP 16; TEMP 37.5; O2SAT 94
[2021-11-23] MEDS: 0.9% Normal Saline 1,000 ML 75 ML IV (03:22)
--- NOTE | 2021-11-23 07:28 | PN.HOSP_ITS ---
Subjective Subjective Feels well. Objective Data Objective Data Vital Signs: Vital Signs Temp Pulse Resp BP Pulse Ox O2 Del Method 37.5 C H 86 16 120/66 94 Room Air 11/23/21 02:15 11/23/21 02:15 11/23/21 02:15 11/23/21 02:15 11/23/21 02:15 11/23/21 02:15 Oxygen Delivery Method Room Air Weight: 81.2 kg Body Mass Index (BMI) 27.2 Intake & Output: Intake and Output for Last 24 Hours 11/21/21 11/22/21 11/23/21 23:59 23:59 23:59 Intake Total 1050 / 1083.75 1291.25 / 1491.25 1352.5 / 1352.5 Output Total 350 / 350 Balance 1050 / 1083.75 941.25 / 1141.25 1352.5 / 1352.5 Lab / Micro Data Result Diagrams: 11/22/21 05:19 11/22/21 05:19 Micro: Microbiology 11/21/21 21:04 Urine, Random Urine Culture - Preliminary Gram negative david 11/21/21 20:55 Nasal Secretion SARS-CoV-2 Antigen (Rapid) - Final SARS-CoV-2 (COVID 19) Physical Exam Const alert and no apparent distress Resp normal respiratory effort GI normal to inspection, nondistended, normoactive bowel sounds Neuro oriented x3 and CN's II-XII intact bilaterally Psych affect normal Assessment & Plan Assessment/Plan (1) Acute UTI: PLAN: UCx shows Klebsiella aerogenes. Given allergies, treat with Bactrim Continue CTX (2) Generalized weakness: PLAN: Generalized weakness PT and OT to work with patient for strengthening balance training. Of note family is sitting for possible transitional care rehabilitation after hospitalization. Case management consult. (3) COVID-19: PLAN: Reportedly 10 days ago patient tested positive for COVID. On this presentation her COVID test is still positive. Chest x-ray reviewed and showed hyperinflated airways with a chronic changes. No change from August 04 Not hypoxic, no change in chest x-ray. Of the window for remdesivir. Given clinical stability, no treatment with steroids at this time. PLAN: Plan Chronic conditions: * atrial fibrillation: Stable. Home apixaban continued. * Hypertension: Stable. Continue ACEi, HCTZ, metoprolol tartrate * CKD stage IIIb: Stable. DVT prophylaxis Not indicated as patient is on Eliquis for A. fib and Eliquis has been continued DC home with [facility]
[2021-11-23 07:50] VITALS: O2SAT 95
[2021-11-23 07:58] VITALS: BP 130/77; PULSE 81; RESP 18; TEMP 36.3; O2SAT 92
[2021-11-23] MEDS: Aspirin E.C. 81 MG Tablet PO (08:28)
[2021-11-23] MEDS: APIXABAN 2.5 MG TABLET PO (08:28)
[2021-11-23 08:29] VITALS: BP 130/77; PULSE 81
[2021-11-23] MEDS: hydroCHLOROthiazide 25 MG Tablet PO (08:29)
[2021-11-23] MEDS: Fluticasone 0.05% 1 SPRAY NASAL.SRY NASAL (08:29)
[2021-11-23] MEDS: Metoprolol Tartrate 100 MG Tablet PO (08:29)
[2021-11-23] MEDS: Nystatin Powder 15gm Bottle 1 APPLIC TOPICAL (08:30)
[2021-11-23] MEDS: Lisinopril 40 MG Tablet PO (08:32)
[2021-11-23] MEDS: amLODIPine 10 MG Tablet PO (08:32)
[2021-11-23] MEDS: Ascorbic Acid 500 MG Tablet PO (08:32)
--- NOTE | 2021-11-23 10:33 | CASEMGMT ---
Received tc from pt son who states they have chosen [facility]. Discussed at length criteria for [facility], medicare coverage, length of services, services ordered. Did discuss adding COMPUTER SOFTWARE ENGINEER for bathing and personal care. All questions answered. Referral called to Dulce at [facility]. Awaiting acceptance.
--- NOTE | 2021-11-23 10:47 | DCINST_ITS ---
Discharge Instructions Diet Discharge Diet: No restrictions Activity Discharge Activity: Return to Normal Activity Dressing / Incision Call your doctor if you observe: Fever of 101 or Higher Follow Up Care Test Results: Test results from this visit will be discussed in further detail at your follow- up appointment, if applicable. Discharge Plan Admission Admit Date/Time: 11/21/21 21:44 Primary Reason for Your Visit: Urinary tract infection Attending Provider: Taj Houston Primary Care Provider: Levon White Consulting Providers: Constantin Machado Discharge Orders/Prescriptions Prescriptions: New sulfamethoxazole-trimethoprim [Bactrim DS] 800-160 mg tablet 1 tab PO BID Qty: 10 0RF Continued nystatin 100,000 unit/gram powder 1 applic topical BID Qty: 60 2RF amlodipine 10 mg tablet 10 mg PO DAILY Qty: 90 3RF aspirin 81 MG tablet 81 mg PO DAILY@0800 acetaminophen 500 MG tablet 1,000 mg PO Q6H PRN PRN (Reason: Pain) fluticasone propionate 1 SPRAY spray,suspension 1 spray NASAL DAILY ascorbic acid (vitamin C) [Vitamin C] 500 mg Tablet 500 mg PO DAILY melatonin 3 mg Capsule 3 mg PO QHS montelukast 10 mg tablet 10 mg PO QHS hydrochlorothiazide 25 mg tablet 25 mg PO DAILY Eliquis 2.5 mg tablet 2.5 mg PO BID (DME) Handicap Placard See Rx Instructions .ROUTE .MEDSUPPLY Qty: 1 0RF Rx Instructions: As directed, length of time 3 years (DME) Ultra-Light Rollator Misc See Rx Instructions .Route Qty: 1 0RF Rx Instructions: As directed benazepril 40 mg tablet 40 mg PO DAILY Qty: 90 1RF metoprolol tartrate 100 mg tablet 100 mg PO BID Qty: 180 3RF Referrals / Follow Up: Levon White MD [Primary Care Provider] - Disposition Disposition (needs filled in before D/C Order can be placed): Home Health Service
--- NOTE | 2021-11-23 10:51 | CASEMGMT ---
Addendum entered by Janel Welsh 11/23/21 11:12: Pt accepted from [facility] with start of care tomorrow. Son to be in this afternoon. Original Note: Received tc from pt son, they have chose [facility] for the [employer]. Discussed at length expectations of [facility], requirements for HHC, disciplines ordered and that this is short term. Pt son states that his mother prefers to have female therapists and they have 2 dogs but they are not mean. TC malachi Cardona at [facility], referral made with the above information.
--- NOTE | 2021-11-23 10:51 | PCM.DC.SUM ---
Providers Date of Admission: 11/21/21 Primary Care Physician: Dr. Levon White MD Reason For Visit: UTI; DEBILITY Diagnosis Discharge Diagnosis (1) Acute UTI: Status: Acute Code(s): N39.0 - Urinary tract infection, site not specified Plan: UCx shows Klebsiella aerogenes. Given allergies, treat with Bactrim Continue CTX (2) Generalized weakness: Status: Acute Code(s): R53.1 - Weakness Plan: Generalized weakness PT and OT to work with patient for strengthening balance training. Of note family is sitting for possible transitional care rehabilitation after hospitalization. Case management consult. (3) COVID-19: Status: Acute Code(s): U07.1 - COVID-19 Plan: Reportedly 10 days ago patient tested positive for COVID. On this presentation her COVID test is still positive. Chest x-ray reviewed and showed hyperinflated airways with a chronic changes. No change from August 04 Not hypoxic, no change in chest x-ray. Of the window for remdesivir. Given clinical stability, no treatment with steroids at this time. Plan Chronic conditions: atrial fibrillation: Stable. Home apixaban continued. Hypertension: Stable. Continue ACEi, HCTZ, metoprolol tartrate CKD stage IIIb: Stable. DVT prophylaxis Not indicated as patient is on Eliquis for A. fib and Eliquis has been continued DC home with [facility] Medications at Discharge Home Medications acetaminophen 500 mg tablet 1,000 mg PO Q6H PRN PRN Pain 04/12/18 aspirin 81 mg tablet,delayed release 81 mg PO DAILY@0800 Heart Health 04/12/18 fluticasone propionate 50 mcg/actuation nasal spray,suspension 1 spray NASAL DAILY Allergies 06/01/18 ascorbic acid (vitamin C) 500 mg tablet (Vitamin C) 500 mg PO DAILY 09/26/20 melatonin 3 mg capsule 3 mg PO QHS 09/26/20 nystatin 100,000 unit/gram topical powder 1 applic topical BID #60 grams 02/19/21 amlodipine 10 mg tablet 10 mg PO DAILY BP #90 tabs 05/26/21 Handicap Placard #1 ea 09/23/21 walker (Ultra-Light Rollator misc) #1 ea 09/23/21 benazepril 40 mg tablet 40 mg PO DAILY Blood Pressure #90 tabs 10/11/21 metoprolol tartrate 100 mg tablet 100 mg PO BID Blood pressure #180 tabs 11/09/21 apixaban 2.5 mg tablet (Eliquis) 2.5 mg PO BID BLOOD THINNER 11/21/21 hydrochlorothiazide 25 mg tablet 25 mg PO DAILY WATER PILL 11/21/21 montelukast 10 mg tablet 10 mg PO QHS ALLERGIES 11/21/21 sulfamethoxazole 800 mg-trimethoprim 160 mg tablet (Bactrim DS) 1 tab PO BID #10 tabs 11/23/21 Hospital Course Operations None Procedures None Summary of Care Provided Minutes Spent on Discharge: 26 Weight / BMI Weight Weight: 81.2 kg Body Mass Index (BMI) 27.2 ABG / Lab / Microbiology Data Result Diagrams: 11/22/21 05:19 11/22/21 05:19 Microbiology: Microbiology 11/21/21 21:04 Urine, Random Urine Culture - Final Klebsiella aerogenes 11/21/21 20:55 Nasal Secretion SARS-CoV-2 Antigen (Rapid) - Final SARS-CoV-2 (COVID 19) D/C Instructions Discharge Diet: No restrictions Call your doctor if you observe: Fever of 101 or Higher Meaningful Use Info Meaningful Use Diagnoses (Choose all that apply): None applicable Discharge Plan Admission Admit Date/Time: 11/21/21 21:44 Primary Reason for Your Visit: Urinary tract infection Attending Provider: Taj Houston Primary Care Provider: Levon White Consulting Providers: Constantin Machado Discharge Orders/Prescriptions Prescriptions: New sulfamethoxazole-trimethoprim [Bactrim DS] 800-160 mg tablet 1 tab PO BID Qty: 10 0RF Continued nystatin 100,000 unit/gram powder 1 applic topical BID Qty: 60 2RF amlodipine 10 mg tablet 10 mg PO DAILY Qty: 90 3RF aspirin 81 MG tablet 81 mg PO DAILY@0800 acetaminophen 500 MG tablet 1,000 mg PO Q6H PRN PRN (Reason: Pain) fluticasone propionate 1 SPRAY spray,suspension 1 spray NASAL DAILY ascorbic acid (vitamin C) [Vitamin C] 500 mg Tablet 500 mg PO DAILY melatonin 3 mg Capsule 3 mg PO QHS montelukast 10 mg tablet 10 mg PO QHS hydrochlorothiazide 25 mg tablet 25 mg PO DAILY Eliquis 2.5 mg tablet 2.5 mg PO BID (DME) Handicap Placard See Rx Instructions .ROUTE .MEDSUPPLY Qty: 1 0RF Rx Instructions: As directed, length of time 3 years (DME) Ultra-Light Rollator Misc See Rx Instructions .Route Qty: 1 0RF Rx Instructions: As directed benazepril 40 mg tablet 40 mg PO DAILY Qty: 90 1RF metoprolol tartrate 100 mg tablet 100 mg PO BID Qty: 180 3RF Referrals / Follow Up: Levon White MD [Primary Care Provider] - Disposition Disposition (needs filled in before D/C Order can be placed): Home Health Service Charges/Coding Visit Charges Inpatient E&M: 35712 Disch Hosp
--- NOTE | 2021-11-23 12:22 | CASEMGMT ---
Social Work Pt's son brought copies of HCPOA/LW, naming him, Javier Sanabria, as pt's agent. SW placed copies of documents on pt chart. JENNIFER Ott
== END 2021-11-23 13:44 | disposition home health service (06) | DRG 689 ==
LOC: ED 22:13 → MS3 22:17
PROVIDERS: Physician Assistant; Admitting Provider Hospitalist; Emergency Provider Emergency Medicine; PCP Internal Medicine
DX: N39.0 Urinary tract infection, site not specified (principal); U07.1 COVID-19; I48.0 Paroxysmal atrial fibrillation; I12.9 Hypertensive chronic kidney disease with stage 1 through stage 4 chronic kidney disease, or unspecified chronic kidney disease; E86.0 Dehydration; B96.1 Klebsiella pneumoniae [K. pneumoniae] as the cause of diseases classified elsewhere; J44.9 Chronic obstructive pulmonary disease, unspecified; N18.32 Chronic kidney disease, stage 3b; Z79.01 Long term (current) use of anticoagulants; Z79.82 Long term (current) use of aspirin; Z79.899 Other long term (current) drug therapy; Z87.440 Personal history of urinary (tract) infections
CPT/HCPCS: 36415; 71046; 80048; 81001; 85025; 87077; 87086; 87088; 87186; 87811; 97162; 97166; 97802; 99284; J7030; J7050; A4216

== ENCOUNTER 2021-12-06 13:09 | Inpatient (IN) | payer MEDICARE, OTHER, SELFPAY ==
[2021-12-06] VITALS (10 sets, daily range): BP systolic 105–128; BP diastolic 53–91; PULSE 60–78; RESP 15–18; TEMP 36.3–36.8; O2SAT 94–99; BMI 27.2; BMI 25.9
--- NOTE | 2021-12-06 13:51 | EDS_ITS ---
HPI HPI - Fall History of Present Illness Chief Complaint: Fall Narrative Narrative: 86-year-old female past medical history of atrial fibrillation on Eliquis presents status post fall with injury to her head and neck. Her son relates history that at 840 this morning, approximately 5 hours ago, she was in the garage letting the dogs out when she was not supposed to. She was using her cane although she usually uses a walker at times. She fell backwards in the garage. She hit her head against the toolbox. No loss of consciousness but she had to sit in the garage for approximately an hour or 2 before she called [facility]. He does have cameras in the garage that did record her fall. Paramedics assisted her up afterwards. She complains of mild headache and soreness of her scalp on the left-hand side along with soreness in her neck. She denies any loss of bowel or bladder. No paresthesias. Once again, there was no loss of consciousness. She denies any sacral pain or hip pain. No other injury. She presents with her family because of her head injury on anticoagulation. 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 Coagulopathy Cognitive impairment Confusion COPD (chronic obstructive pulmonary disease) COVID-19 (11/16/21) Depression Dermatitis Dyspnea on exertion Elevated blood pressure reading in office with white coat syndrome, without diagnosis of hypertension Essential (primary) hypertension Fall Fatigue Fracture, rib Hypertension after donor nephrectomy requiring medication Intertriginous dermatitis associated with moisture Localized swelling of left lower extremity Lung nodule seen on imaging study New onset atrial fibrillation Obesity Osteoporosis Paroxysmal atrial fibrillation Pulmonary hypertension Recurrent UTI Shortness of breath Traumatic hematoma of right elbow Traumatic hematoma of right upper arm Home Medications acetaminophen 500 mg tablet 1,000 mg PO Q6H PRN PRN Pain 04/12/18 [History Last Taken 04/10/18] aspirin 81 mg tablet,delayed release 81 mg PO DAILY@0800 Heart Health 04/12/18 [History Last Taken 11/21/21] fluticasone propionate 50 mcg/actuation nasal spray,suspension 1 spray NASAL DAILY Allergies 06/01/18 [History Last Taken 11/21/21] ascorbic acid (vitamin C) 500 mg tablet (Vitamin C) 500 mg PO DAILY 09/26/20 [History Last Taken Unknown] melatonin 3 mg capsule 3 mg PO QHS 09/26/20 [History Last Taken Unknown] nystatin 100,000 unit/gram topical powder 1 applic topical BID #60 grams 02/19/21 [Rx Last Taken Unknown] amlodipine 10 mg tablet 10 mg PO DAILY BP #90 tabs 05/26/21 [Rx Last Taken 11/21/21] Handicap Placard #1 ea 09/23/21 [Rx Last Taken Unknown] walker (Ultra-Light Rollator misc) #1 ea 09/23/21 [Rx Last Taken Unknown] benazepril 40 mg tablet 40 mg PO DAILY Blood Pressure #90 tabs 10/11/21 [Rx Last Taken 11/21/21] metoprolol tartrate 100 mg tablet 100 mg PO BID Blood pressure #180 tabs 11/09/21 [Rx Last Taken 11/21/21] apixaban 2.5 mg tablet (Eliquis) 2.5 mg PO BID BLOOD THINNER 11/21/21 [History Last Taken 11/21/21] hydrochlorothiazide 25 mg tablet 25 mg PO DAILY WATER PILL 11/21/21 [History Last Taken 11/21/21] montelukast 10 mg tablet 10 mg PO QHS ALLERGIES 11/21/21 [History Last Taken Unknown] sulfamethoxazole 800 mg-trimethoprim 160 mg tablet (Bactrim DS) 1 tab PO BID #10 tabs 11/23/21 [Rx Last Taken Unknown] Allergy/AdvReac Type Severity Reaction Status Date / Time amoxicillin Allergy Rash Verified 12/06/21 13:11 cefdinir Allergy Rash Verified 12/06/21 13:11 clavulanic acid Allergy Rash Verified 12/06/21 13:11 [From Augmentin] heparin Allergy Rash Verified 12/06/21 13:11 levofloxacin [From Levaquin] Allergy Rash Verified 12/06/21 13:11 antibiotic Allergy rash Uncoded 12/06/21 13:11 Family History Father Cancer Surgical History H/O basal cell carcinoma excision History of vein stripping Social History household members: family Smoking Status: Never smoker alcohol intake: never substance use type: does not use ROS ROS ED ROS Narrative Constitutional: No fever, no chills. HEENT: No sore throat. No neck pain. No loss of vision. No rhinorrhea. Neck sore. Cardiovascular: No chest pain. No palpitations. No pedal edema. Respiratory: No cough, no shortness of breath. Abdominal: No abdominal pain. No nausea. No vomiting. Genitourinary: No dysuria. No hematuria. Musculoskeletal: No myalgias. No arthralgias. No hip pain. No buttocks pain. Neurologic: Mild headaches. No dizziness. No lightheadedness. Skin: No rash. No change in color. Psychiatric: No depression. No anxiety. EXAM Physical Exam Narrative Exam Narrative: Afebrile. Vital signs noted. GCS 15. ABCs are intact. HEENT: Normocephalic. Mild tenderness to palpation left parietal scalp, no noted or rapidly expanding hematoma. PERRL, EOMI. Neck soft and supple. No point tenderness or step off. Cardiovascular: Regular rate and rhythm. No murmurs, rubs, or gallops appreciated. Respiratory: No tachypnea. Lungs clear to auscultation bilaterally. Gastrointestinal: Abdomen soft, nontender, with normoactive bowel sounds. No rebound or guarding. Neurological: Awake. Alert. Nonfocal, nonlateralizing. Neuro vastly intact bilateral lower extremities. Able to flex and extend hips and knees bilaterally. Skin: No rash. Normal color. No pallor. Musculoskeletal: No pedal edema. Full range of motion extremities. Pelvis stable. No pain with logrolling of bilateral femurs. No tenderness to palpation sacrum. No step-off of lumbar spine. Const Vital Signs: 12/06/21 13:10 12/06/21 13:36 12/06/21 13:43 Temperature 97.9 F Temperature Source Temporal Pulse Rate 63 60 Respiratory Rate 16 15 Respiratory Effort Normal Respiratory Depth Normal Respiratory Pattern Normal Blood Pressure 110/62 107/66 Blood Pressure Mean 78 79 Pulse Ox 98 97 Oxygen Delivery Method Room Air Room Air Room Air 12/06/21 14:30 Temperature Temperature Source Pulse Rate 61 Respiratory Rate 16 Respiratory Effort Respiratory Depth Respiratory Pattern Blood Pressure 105/53 L Blood Pressure Mean 70 Pulse Ox 99 Oxygen Delivery Method Room Air MDM MDM MDM Narrative Medical decision making narrative: I was able to witness the patient's fall that was recorded by the cameras on her son's phone. It did appear that she hit the left side of her head when she fell backwards, sitting on her buttocks, then hitting the toolbox. Given the patient's age, and that she has a head injury on anticoagulation, I will obtain CT imaging of the brain and of the C-spine. CT of the brain shows no evidence of acute hemorrhage or skull fracture. CT of the cervical spine shows multilevel degenerative changes but no evidence of acute fracture. At this point in time, I feel she be discharged safely home with follow-up. She was told to use her cane and walker. She will follow-up with her primary care physician. Return instructions to the emergency department were reviewed. Disposition is discharged home in stable condition. Radiography Diagnostic Testing: Clinical Impression(s) from Imaging Studies Brain CT 12/06/21 13:51 IMPRESSION: Chronic involutional changes of the brain. Electronically Signed: Von Branham MD at 14:47 EDT , Cervical Spine CT 12/06/21 13:51 IMPRESSION: Multilevel degenerative changes, as described above. Electronically Signed: Von Branham MD at 14:50 EDT , Discharge Plan Triage Chief Complaint: Fall ED Provider: Armando Daigle Dx/Rx/DC Orders Clinical Impression: Fall from standing, Closed head injury, Cervical strain Instructions: ED Fall with Uncertain Cause, ED Head Injury (Adult), ED Neck Sprain or Strain Prescriptions: No Action nystatin 100,000 unit/gram powder 1 applic topical BID Qty: 60 2RF amlodipine 10 mg tablet 10 mg PO DAILY Qty: 90 3RF aspirin 81 MG tablet 81 mg PO DAILY@0800 acetaminophen 500 MG tablet 1,000 mg PO Q6H PRN PRN (Reason: Pain) fluticasone propionate 1 SPRAY spray,suspension 1 spray NASAL DAILY ascorbic acid (vitamin C) [Vitamin C] 500 mg Tablet 500 mg PO DAILY melatonin 3 mg Capsule 3 mg PO QHS montelukast 10 mg tablet 10 mg PO QHS hydrochlorothiazide 25 mg tablet 25 mg PO DAILY Eliquis 2.5 mg tablet 2.5 mg PO BID sulfamethoxazole-trimethoprim [Bactrim DS] 800-160 mg tablet 1 tab PO BID Qty: 10 0RF (DME) Handicap Placard See Rx Instructions .ROUTE .MEDSUPPLY Qty: 1 0RF Rx Instructions: As directed, length of time 3 years (DME) Ultra-Light Rollator Misc See Rx Instructions .Route Qty: 1 0RF Rx Instructions: As directed benazepril 40 mg tablet 40 mg PO DAILY Qty: 90 1RF metoprolol tartrate 100 mg tablet 100 mg PO BID Qty: 180 3RF Primary Care Provider: Levon White Referrals: Levon White MD [Primary Care Provider] - 3-5 Days if not improving Disposition Disposition: Home, Self Care
--- NOTE | 2021-12-06 13:51 | CT_ITS ---
STUDY: CT CERVICAL SPINE WITHOUT CONTRAST REASON FOR EXAM: Female, 86 years old. Neck pain following injury. RADIATION DOSAGE (If Supplied By Facility): CTDIvol = ( 18.68 ) mGy, DLP = ( 313.72 ) mGycm TECHNIQUE: High resolution transaxial imaging was performed without contrast material. Sagittal and coronal images were reconstructed. Individualized dose optimization techniques were used for this CT. COMPARISON: None FINDINGS: Normal craniovertebral junction. There are degenerative changes of the anterior atlantoaxial articulation. Normal odontoid process. There is an exaggerated cervical lordosis. Normal vertebral bodies and posterior osseous elements. C2-3: Normal endplates. Normal disc height and morphology. Normal central canal and intervertebral neuroforamina. C3-4: Facet joint osteoarthritis and hypertrophy. No significant stenosis is seen. C4-5: Facet joint osteoarthritis and hypertrophy worse on the right side. Mild to moderate degree of right neural foraminal C5-6: Moderate degree of disc space narrowing and disc degeneration. Spondylosis. Facet joint osteoarthritis and hypertrophy worse on the right side of the midline. Bilateral neural foraminal stenosis. C6-7: Disc space narrowing and spondylosis. C7-T1: Normal endplates. Normal disc height and morphology. Normal central canal and intervertebral neuroforamina. Enlargement of the thyroid more prominent in the right lobe with focal calcifications. CT/Spine Cervical without Contras IMPRESSION: Multilevel degenerative changes, as described above. Electronically Signed: Von Branham MD at 14:50 EDT ,
--- NOTE | 2021-12-06 13:51 | CT_ITS ---
STUDY: CT BRAIN WITHOUT CONTRAST REASON FOR EXAM: Female, 86 years old. Head Injury ON aNTICOAGULATION RADIATION DOSAGE (If Supplied By Facility): CTDIvol = ( 44.99 ) mGy, DLP = ( 779.24 ) mGycm TECHNIQUE: Transaxial CT imaging of the brain was performed without administration of intravenous contrast material. Individualized dose optimization techniques were used for this CT. COMPARISON: Comparison is made with the prior examination dated 09/26/2020. FINDINGS: Normal soft tissue structures. Normal calvarium. There is moderate cerebral atrophy with widening of the extra-axial spaces and ventricular dilatation. There are areas of decreased attenuation within the white matter tracts of the supratentorial brain, consistent with microvascular disease changes. Normal basal ganglia and thalami. Normal brainstem. There is mild cerebellar atrophy. There is no intracranial hemorrhage. There are no findings of an acute ischemic infarction. Atherosclerotic plaque calcification of the cavernous portions of the internal carotid arteries bilaterally. Normal visualized paranasal sinuses. CT/Brain/Head without Contrast IMPRESSION: Chronic involutional changes of the brain. Electronically Signed: Von Branham MD at 14:47 EDT ,
--- NOTE | 2021-12-06 15:37 | CM.ED ---
Addendum entered by May Mackey 12/06/21 16:13: Patients' covid came back positive. Vanda from TCU updated. Susu called Paulette who said that patient needs 2 negatives in 24 hours to come to the TCU. LYN Sweet updated about patient's covid test. May HUSSEIN Original Note: ANNALISA received call from Vanda. Vanda advised that patient's family is interested in TCU. However, we need COVID swab for patient to be completed prior to coming to TCU. ANNALISA updated life insurance salesperson Pepper. ANNALISA received call from patient's granddaughter, Madeleine, who indicated patient has been falling at home and the family feels patient needs TCU. Patient's RN rolf spoke to patient and she was in agreement with going to TCU. ANNALISA spoke to Vanda. Everything has been reviewed for admission for patient except covid swab. Covid swab was completed for patient. ANNALISA updated patient's family. They inquired about patient having a leave of absence on the for a family event and also the visiting hours. ANNALISA called TCU ANNALISA Jay and left voice mail for her. Misty called this teletypewriter operator back and noted that visiting hours are 10am-8pm and cannot interfere with therapy and the Leave of Absence must be discussed with MD Champagne. updated. Plan: TCU May HUSSEIN
--- NOTE | 2021-12-06 16:05 | ED.RN ---
pt is covid +. dr informed. andrew hussein, rn [id number]
--- NOTE | 2021-12-06 16:08 | HP.PCM.HOS_ITS ---
HPI - General General Date of Admission: 12/06/21 Date of Service: 12/06/21 Chief Complaint: Fall HPI Narrative The patient is an 86 y/o F w/ PMHx: CKD stage III unclear subtype, Depression and Anxiety, COPD, PAF, HTN, Allergic rhinitis, Recent 11/15/21 COVID + PCR obtained secondary to notable fatigue with decreased appetite since improved especially over the last week per discussion with her son who presents to the 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 She currently denies any headache or neck back but did upon initial ED presentation. From discussions she did not want to call secondary to falling and dislike of potential placement. Family does report that she has had prior falls. Discussed case with patient grand-daugther who is in health care and she notes that the patient's son, her father helps with nearly everything and it would beneficial to have her transitioned to [place] versus SNF. Work-up in the ED today T97.9, heart rate 63, BP 110/62, respiratory rate 16, 98% on room air, rapid COVID antigen positive, CT of the brain with chronic involutional changes with n o acute intracranial findings, CT cervical spine with multilevel degenerative changes, CBC with WC 5.2, hemoglobin 12.1, platelet 224 marked shift, CMP with BUN/creat 31/1.45, glucose 108 otherwise unremarkable hepatic profile, pending COVID PCR. 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 medication Intertriginous dermatitis associated with moisture Localized swelling of left lower extremity Lung nodule seen on imaging study New onset atrial fibrillation Obesity Osteoporosis Paroxysmal atrial fibrillation Pulmonary hypertension Recurrent UTI Shortness of breath Traumatic hematoma of right elbow Traumatic hematoma of right upper arm Home Medications aspirin 81 mg tablet,delayed release 81 mg PO DAILY@0800 Heart Health 04/12/18 [History Last Taken 12/06/21] amlodipine 10 mg tablet 10 mg PO DAILY BP #90 tabs 05/26/21 [Rx Last Taken 12/06/21] benazepril 40 mg tablet 40 mg PO DAILY Blood Pressure #90 tabs 10/11/21 [Rx Last Taken 12/06/21] metoprolol tartrate 100 mg tablet 100 mg PO BID Blood pressure #180 tabs [Rx Last Taken 12/06/21] apixaban 2.5 mg tablet (Eliquis) 2.5 mg PO BID BLOOD THINNER 11/21/21 [History Last Taken 12/06/21] hydrochlorothiazide 25 mg tablet 25 mg PO DAILY blood pressure 11/21/21 [History Last Taken 12/06/21] montelukast 10 mg tablet 10 mg PO QHS ALLERGIES 11/21/21 [History Last Taken 12/06/21] nystatin 100,000 unit/gram topical powder 1 applic topical DAILY 12/06/21 [History Last Taken 12/06/21] Allergy/AdvReac Type Severity Reaction Status Date / Time amoxicillin Allergy Rash Verified 12/06/21 13:11 cefdinir Allergy Rash Verified 12/06/21 13:11 clavulanic acid Allergy Rash Verified 12/06/21 13:11 [From Augmentin] heparin Allergy Rash Verified 12/06/21 13:11 levofloxacin [From Levaquin] Allergy Rash Verified 12/06/21 13:11 antibiotic Allergy rash Uncoded 12/06/21 13:11 Family History (Updated 12/06/21 @ 18:[address] Isabella Epps MD) Father Cancer Mother Hypertension Dementia Surgical History H/O basal cell carcinoma excision History of vein stripping Social History household members: family Smoking Status: Never smoker alcohol intake: never substance use type: does not use ROS ROS Narrative Admission Review of Systems: CONSTITUTIONAL: No weight loss, fever, chills, + weakness or fatigue. HEENT: Eyes: No visual loss, blurred vision, double vision or yellow sclerae. Ears, Nose, Throat: No hearing loss, sneezing, congestion, runny nose or sore throat. SKIN: No rash or itching, lesions, wounds. CARDIOVASCULAR: No chest pain, chest pressure or chest discomfort, palpitations, edema, orthopnea, syncopal events. RESPIRATORY: No shortness of breath, cough or sputum, wheezing, hemoptysis. GASTROINTESTINAL: + Recent COVID w/ anorexia but improving, No nausea, vomiting or diarrhea, abdominal pain, melena, BRBPR. GENITOURINARY: No dysuria, frequency, urgency or retention. NEUROLOGICAL: + Headache, fall, No dizziness, syncope, paralysis, ataxia, numbness or tingling in the extremities, focal weakness, change in bowel or bl adder control, seizure. MUSCULOSKELETAL: + muscle, back pain, joint pain or stiffness. HEMATOLOGIC: + anemia, bleeding or bruising. LYMPHATICS: No enlarged nodes. No history of splenectomy. PSYCHIATRIC: No history of depression or anxiety. ENDOCRINOLOGIC: No reports of sweating, cold or heat intolerance. No polyuria or polydipsia. ALLERGIES: No history of asthma, hives, eczema or rhinitis. Vital Signs Vital Signs Vital Signs: 12/06/21 13:10 12/06/21 13:36 12/06/21 13:43 Temperature 97.9 F Temperature Source Temporal Pulse Rate 63 60 Respiratory Rate 16 15 Respiratory Effort Normal Respiratory Depth Normal Respiratory Pattern Normal Blood Pressure 110/62 107/66 Blood Pressure Mean 78 79 Pulse Ox 98 97 Oxygen Delivery Method Room Air Room Air Room Air 12/06/21 14:30 12/06/21 15:05 Temperature Temperature Source Pulse Rate 61 74 Respiratory Rate 16 16 Respiratory Effort Respiratory Depth Respiratory Pattern Blood Pressure 105/53 L 123/91 H Blood Pressure Mean 70 101 Pulse Ox 99 98 Oxygen Delivery Method Room Air Room Air Weight Weight: 179 lb Body Mass Index (BMI) 27.2 Physical Exam Narrative Physical Examination: General: Awake, alert, oriented x 3, mildly hard of hearing, remains cooperative, seated upright in the ED bed, fatigued appearing, no acute distress. Skin: Normal color, normal turgor, no icterus, no cyanosis except occasional staged ecchymoses. HEENT: AT/NC, EOMI, PERRLA, mildly dry MM, no carotid bruits or JVD noted. Lungs: Mildly diminished, greater bases, poor effort, no rales, ronchi or wheezing. Heart: Currently regular rate and rhythm; no gallop, rub audible. Abdomen: Soft, overweight, NTTP, ND, distant normal BS, no HSM. Extremities: No cyanosis, no clubbing, mild bilateral ankle nonpitting edema. Neurological: Patient awake, alert, oriented as noted, cognitive function int act; pupils equally reactive to light and accommodation, cranial nerves II-XII grossly normal, moving all 4 extremities, no focal deficits, strength moderately global decrease secondary to acute fall in underlying comorbidities as well as recent COVID illness, improving Psychiatric: Affect appears fatigued otherwise normal, no acute evidence of depressive or anxiety feelings but affect is mildly flat. Results Lab / Micro Data Result Diagrams: 12/06/21 16:34 12/06/21 16:34 Micro: Microbiology 12/06/21 15:17 Nasal Secretion SARS-CoV-2 Antigen (Rapid) - Final SARS-CoV-2 (COVID 19) Radiology Impression Brain CT 12/06/21 13:51 IMPRESSION: Chronic involutional changes of the brain. Electronically Signed: Von Branham MD at 14:47 EDT , Cervical Spine CT 12/06/21 13:51 IMPRESSION: Multilevel degenerative changes, as described above. Electronically Signed: Von Branham MD at 14:50 EDT , Assessment & Plan Assessment/Plan (1) Closed head injury: PLAN: Plan The patient is an 86 y/o F w/ PMHx: CKD stage III unclear subtype, Depression and Anxiety, COPD, PAF, HTN, Allergic rhinitis, Recent 11/15/21 COVID + PCR obtained secondary to notable fatigue with decreased appetite since improved especially over the last week per discussion with her son who presents to the 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 She currently denies any headache or neck back but did upon initial ED presentation. #1. Mechanical fall with closed head injury with no LOC: CT head and CT cervical spine with no acute findings, will admit to medical surgical floor given inability to transition from TCU in the ED secondary to positive antigen COVID testing, will maintain on fall precautions, plan resumption of Eliquis therapy in a.m., case management/PT/OT will be consulted for discharge planning. Discussed with family fall history and they did admit that she has had several falls over the last year potential need to discontinue Eliquis therapy secondary to elevated risk. No differential she did transition to assisted living or potentially skilled this may be could be continued if she was in a well watched environment. Family noted intention to review and discuss. #2. Recent acute viral syndrome, COVID-19 with no associated hypoxia: As noted patient with significant fatigue, decreased appetite with COVID-positive PCR testing 11/15/2021, unfortunately 12/06/2021 antigen testing noted to be positive, COVID PCR testing pending as patient will be unable to transition to TCU in last 2 COVID test negative. Patient notes significant improvement, improved oral intake and strength. Case management/PT/OT consulted for discharge planning as noted. #3. PAF: We will continue patient home metoprolol regimen, again will continue Eliquis for now but discussed at length with family and given history of falls would be appropriate to consider discontinuation. #4. Chronic COPD: Not on any routine inhalers, will have PRN albuterol, HOB, IS parameters. #5. Hypertension: Continue home regimen including metoprolol, benazepril, amlodipine, hydrochlorothiazide with hold parameters as needed with plan repeat CMP in a.m. given mildly increased creatinine from baseline, PRN hydralazine. #6. Chronic Kidney Disease Stage III, unclear subtype: Admission BUN/Cr 31/1.45, baseline renal function primarily 1.0-1.2, repeat BMP in AM. #7. DVT: SCDs, cautiously continue Eliquis with next dose in AM. #8. CODE status: Patient DIPAK is her son who is and living will is currently in place. Discussed CODE status at length including difference between FULL code, DNR-CCA and DNR-CC status. Following discussions about the differences in these status, requested Full Code. Advanced Care Planning Face to Face Time: 16 minutes. Charges/Coding Visit Charges OBSV E&M: 62042 Initial observation care L3 Procedures Hospitalists Procedures: 79059 Advncd Care Plan 30 Min
--- NOTE | 2021-12-06 16:24 | NURSING ---
MED SURG OBS WHITE FAILURE TO THRIVE, FALLS
[2021-12-06 16:45] LABS: Absolute Lymphocyte Count 1.77 X10^3/uL (0.83-4.51); Absolute Neutrophil Count 2.8 X10^3/uL (2.0-7.7); Basophil# 0.03 X10^3/uL; Basophil% 0.6 % (0-1); Eosinophil# 0.13 X10^3/uL; Eosinophils% 2.5 % (0-5); Hematocrit 36.7 % (37-47); Hemoglobin 12.1 g/dL (12.0-15.0); Lymphocyte # 1.77 X10^3/ul (0.83-4.51); Lymphocyte % 34.1 % (19-41); Mean Corpuscular Hgb 30.2 pg (27.0-32.0); Mean Corpuscular Volume 91.5 fL (81-99); Mean Platelet Vol. 9.4 fl (6.2-12.0); Monocyte# 0.49 X10^3/uL; Monocyte% 9.4 % (0-10); NRBC Flagged by Analyzer 0 % (0-5); Neutrophil # 2.75 X10^3/uL (2.7-7.7); Platelet Count 228 K/mm3 (150-450); RBC Distribution Width CV 13.2 % (11.6-14.6); RBC Distribution Width SD 44.2 fl (35.1-43.9); Red Blood Count 4.01 M/mm3 (4.2-5.4); White Blood Count 5.2 K/mm3 (4.4-11.0)
[2021-12-06 17:20] LABS: ALB/GLOB Ratio 0.8 RATIO (0.9-2.4); AST(SGOT) 18 U/L (15-37); Alanine Aminotransfer ALT/SGPT 17 U/L (13-56); Albumin, Serum 3.3 g/dL (3.2-5.0); Alkaline Phosphatase 74 U/L (45-117); Anion Gap 8 (5-15); BUN 31 mg/dL (7-18); BUN/Creat Ratio 21.4 RATIO (10-20); Calcium,Total 9.3 mg/dL (8.5-10.1); Chloride 103 mmol/L (98-107); Creatinine, Serum 1.45 mg/dL (0.55-1.02); EST Glomerular Filtration Rate 37 mL/min (>60); Est Glom Filt Rate - Afr Amer 44 mL/min (>60); Estimated Creatinine Clearance 29.13 ml/min; Globulin 4.1 g/dL (2.2-4.2); Glucose 108 mg/dL (74-106); Potassium 3.8 mmol/L (3.5-5.1); Protein, Total 7.4 g/dL (6.4-8.2); Sodium Level 138 mmol/L (136-145)
--- NOTE | 2021-12-06 17:43 | CM.ED ---
ANNALISA provided patient's son with [facility] and [facility] SNF list for his review. Son, Javier said that he thought patient was going upstairs and then to TCU. Family will follow up with patient's care team on MS3. Plan: To be determined. Patient was willing to go to TCU and it was arranged to go to TCU however patient tested covid positive. May HUSSEIN
[2021-12-06] MEDS: Metoprolol Tartrate 100 MG Tablet PO (21:29)
[2021-12-06] MEDS: Montelukast 10 MG Tablet PO (21:30)
[2021-12-06] MEDS: 0.9% Saline Lock 10 ML Syringe IV (21:31)
[2021-12-07] VITALS (12 sets, daily range): BP systolic 94–140; BP diastolic 49–77; PULSE 62–98; RESP 18; TEMP 36.2–36.7; O2SAT 94–96
[2021-12-07 06:35] LABS: Absolute Lymphocyte Count 1.24 X10^3/uL (0.83-4.51); Absolute Neutrophil Count 1.4 X10^3/uL (2.0-7.7); Basophil# 0.02 X10^3/uL; Basophil% 0.6 % (0-1); Eosinophil# 0.09 X10^3/uL; Eosinophils% 2.8 % (0-5); Hematocrit 31.4 % (37-47); Hemoglobin 10.5 g/dL (12.0-15.0); Lymphocyte # 1.24 X10^3/ul (0.83-4.51); Lymphocyte % 38.4 % (19-41); Mean Corp Hgb Conc 33.4 g/dL (32-36); Mean Corpuscular Hgb 30.8 pg (27.0-32.0); Mean Corpuscular Volume 92.1 fL (81-99); Mean Platelet Vol. 9.7 fl (6.2-12.0); Monocyte# 0.45 X10^3/uL; Monocyte% 13.9 % (0-10); NRBC Flagged by Analyzer 0 % (0-5); Neutrophil # 1.42 X10^3/uL (2.7-7.7); Platelet Count 177 K/mm3 (150-450); RBC Distribution Width CV 13.1 % (11.6-14.6); RBC Distribution Width SD 43.8 fl (35.1-43.9); Red Blood Count 3.41 M/mm3 (4.2-5.4); White Blood Count 3.2 K/mm3 (4.4-11.0)
[2021-12-07 07:12] LABS: ALB/GLOB Ratio 0.7 RATIO (0.9-2.4); AST(SGOT) 15 U/L (15-37); Alanine Aminotransfer ALT/SGPT 14 U/L (13-56); Albumin, Serum 2.6 g/dL (3.2-5.0); Alkaline Phosphatase 60 U/L (45-117); Anion Gap 7 (5-15); BUN 29 mg/dL (7-18); BUN/Creat Ratio 23.4 RATIO (10-20); Calcium,Total 8.6 mg/dL (8.5-10.1); Chloride 104 mmol/L (98-107); Creatinine, Serum 1.24 mg/dL (0.55-1.02); EST Glomerular Filtration Rate 44 mL/min (>60); Est Glom Filt Rate - Afr Amer 53 mL/min (>60); Estimated Creatinine Clearance 34.07 ml/min; Globulin 3.5 g/dL (2.2-4.2); Glucose 91 mg/dL (74-106); Potassium 4.2 mmol/L (3.5-5.1); Protein, Total 6.1 g/dL (6.4-8.2); Sodium Level 139 mmol/L (136-145)
--- NOTE | 2021-12-07 08:08 | PN.HOSP_ITS ---
Subjective Subjective Patient is an 86-year-old lady with recent diagnosis of COVID-19 on 11/15/2021 who presented with progressive generalized weakness and mechanical fall after tripping on a dog. CT of the head and cervical spine unremarkable admitted to regular nursing floor for further management Objective Data Objective Data Vital Signs: Vital Signs Temp Pulse Resp BP Pulse Ox O2 Del Method 98.1 F 88 18 101/49 L 95 Room Air 12/07/21 05:20 12/07/21 05:20 12/07/21 05:20 12/07/21 05:20 12/07/21 05:20 12/07/21 05:20 Oxygen Delivery Method Room Air Weight: 77.4 kg Body Mass Index (BMI) 25.9 Intake & Output: Intake and Output for Last 24 Hours 12/05/21 12/06/21 12/07/21 23:59 23:59 23:59 Intake Total 100 / 100 Balance 100 / 100 Lab / Micro Data Result Diagrams: 12/07/21 05:45 12/07/21 05:45 Labs: Laboratory Results - last 24 hr 12/06/21 10:13: COVID-19 (DARRELL) Not Detected 12/06/21 16:34: WBC 5.2, RBC 4.01 L, Hgb 12.1, Hct 36.7 L, MCV 91.5, MCH 30.2, MCHC 33.0, RDW Std Deviation 44.2 H, RDW Coeff of Dave 13.2, Plt Count 228, MPV 9.4, Immature Gran % (Auto) 0.400, Neut % (Auto) 53.0, Lymph % (Auto) 34.1, Gates % (Auto) 9.4, Eos % (Auto) 2.5, Baso % (Auto) 0.6, Absolute Neuts (auto) 2.8, Absolute Lymphs (auto) 1.77, Nucleated RBC % 0 12/06/21 16:34: Sodium 138, Potassium 3.8, Chloride 103, Carbon Dioxide 27.0, Anion Gap 8, BUN 31 H, Creatinine 1.45 H, Estim Creat Clear Calc 29.13, Est GFR (MDRD) Af Amer 44 L, Est GFR (MDRD) Non-Af 37 L, BUN/Creatinine Ratio 21.4 H, Glucose 108 H, Calcium 9.3, Total Bilirubin 0.60, AST 18, ALT 17, Alkaline Phosphatase 74, Total Protein 7.4, Albumin 3.3, Globulin 4.1, Albumin/Globulin Ratio 0.8 L 12/07/21 05:45: WBC 3.2 L, RBC 3.41 L, Hgb 10.5 L, Hct 31.4 L, MCV 92.1, MCH 30.8, MCHC 33.4, RDW Std Deviation 43.8, RDW Coeff of Dave 13.1, Plt Count 177, MPV 9.7, Immature Gran % (Auto) 0.300, Neut % (Auto) 44.0 L, Lymph % (Auto) 38.4, Gates % (Auto) 13.9 H, Eos % (Auto) 2.8, Baso % (Auto) 0.6, Absolute Neuts (auto) 1.4 L, Absolute Lymphs (auto) 1.24, Nucleated RBC % 0 12/07/21 05:45: Sodium 139, Potassium 4.2, Chloride 104, Carbon Dioxide 28.0, Anion Gap 7, BUN 29 H, Creatinine 1.24 H, Estim Creat Clear Calc 34.07, Est GFR (MDRD) Af Amer 53 L, Est GFR (MDRD) Non-Af 44 L, BUN/Creatinine Ratio 23.4 H, Glucose 91, Calcium 8.6, Total Bilirubin 0.60, AST 15, ALT 14, Alkaline Ph osphatase 60, Total Protein 6.1 L, Albumin 2.6 L, Globulin 3.5, Albumin/Globulin Ratio 0.7 L Micro: Microbiology 12/06/21 15:17 Nasal Secretion SARS-CoV-2 Antigen (Rapid) - Final SARS-CoV-2 (COVID 19) Radiography Diagnostic Testing: Radiology Impression Brain CT 12/06/21 13:51 IMPRESSION: Chronic involutional changes of the brain. Electronically Signed: Von Branham MD at 14:47 EDT , Cervical Spine CT 12/06/21 13:51 IMPRESSION: Multilevel degenerative changes, as described above. Electronically Signed: Von Branham MD at 14:50 EDT , Physical Exam Narrative GENERAL: cooperative HEENT: Atraumatic; normocephalic EYES; Anicteric, Normal Conjunctiva NECK; supple, normal thyroid, RESPIRATORY: Diminished to auscultation CARDIOVASCULAR: Regular S1 S2, GI: soft, normoactive bowel sounds, : No Renal angle tenderness; EXTREMITIES: No edema, no clubbing, MUSCULOSKELETAL: no muscle wasting NEURO: Awake; no lateralizing signs. SKIN: No Rash PSYCH; Flat affect Assessment & Plan Assessment/Plan (1) Closed head injury: PLAN: Plan Patient is an 86-year-old lady with recent diagnosis of COVID-19 on 11/15/2021 who presented with progressive generalized weakness and mechanical fall after tripping on a dog. CT of the head and cervical spine unremarkable admitted to regular nursing floor for further management 1. Acute mechanical fall ? Initial imaging studies came back unremarkable admitted to regular nursing floor requested for PT OT eval and 7th grade social studies teacher to assist with discharge planning 2. Recent COVID-19 infection ? Plan is to treat symptomatically 3. Paroxysmal atrial fibrillation ? Rate controlled patient is on systemic anticoagulation with Eliquis 4. COPD ? Currently not in exacerbation aerosol treatments as needed 5. Hypertension - Blood pressure controlled, home medications continued with dose adjustment as needed 6. Chronic kidney disease stage IIIa ? Kidney function at baseline 7. DVT prophylaxis ? Patient is on Eliquis CODE STATUS full code Charges/Coding Visit Charges OBSV E&M: 34059 Subsequent observation care L2
--- NOTE | 2021-12-07 09:38 | CASEMGMT ---
Addendum entered by Janel Welsh 12/07/21 10:04: Pt is receiving PT, OT and TEST TECH from [facility]. Hospitalist will keep pt overnight d/t low bp. Updated pt son. Original Note: Discussed pt therapy session with therapist. Pt safe to return home. TC to pt son, he became angry when finding out that pt cannot go to TCU d/t testing positive for covid per social work report. He states just tell me and I will come get her if you are sending her home. Attempted to discuss how pt did with therapy. Son interrupted. States pt has [facility] and wants them to continue and ended the call. Updated hospitalist. Message sent to Kathy to verify which services pt is receiving.
[2021-12-07] MEDS: Aspirin E.C. 81 MG Tablet PO (09:56)
[2021-12-07] MEDS: APIXABAN 2.5 MG TABLET PO ×2 (09:56→23:09)
[2021-12-07] MEDS: Nystatin Powder 15gm Bottle 1 APPLIC TOPICAL (10:01)
[2021-12-07] MEDS: Metoprolol Tartrate 25 MG Tablet PO (10:29)
[2021-12-07] MEDS: 0.9% Saline Lock 10 ML Syringe IV (13:35)
[2021-12-07] MEDS: 0.9% Normal Saline 1,000 ML 100 ML IV (13:35)
--- NOTE | 2021-12-07 14:41 | CASEMGMT ---
LYN CM Readmission Note Previous Admission:?11/21/2021-11/23/2021 Diagnosis:? UTI, debility DC Disposition: Home with [facility] SN, PT, OT, SUPERVISOR [employer] and YARDMASTER Current Admission? Current Diagnosis: Fall, FTT Pt presented to ER from home with a fall and hitting head. Pt did not lose consciousness. CT of cervical spine and brain is negative. Pt was to be dc'd home then family became concerned that pt could not return home d/t fall. Pt plan was to dc to TCU but then rapid covid was positive. PCR negative. Pt admitted and eval'd by therapy and noted able to return home with help. DC Plan: Pt to be dc'd with [facility] resuming PT, OT and YARDMASTER. Pt screened with [facility] Palliative Care screening tool and pt did not meet criteria.
--- NOTE | 2021-12-07 14:53 | CHAPLAIN ---
Type of Pastoral Visit _x__ Initial Visit ___ Follow-up Visit ___ On-call Visit ___ General Patient Visit ___ Spiritual Assessment ___ Family Conference ___ Bereavement ___ Rapid Response ___ Code Blue ___ Other (describe below) Pastoral Care Referral From _x__ Patient ___ Family ___ Nurse ___ Physician ___ Fixer Supervisor ___ Dogman/Woman ___ Other (describe below) Sacrament/Intervention _x__ Active listening ___ Anointing ___ Anglican ___ Bereavement ___ Communion ___ Raissa exploration ___ ___ Life review _x__ Prayer ___ Reconciliation ___ Sacrament of Sick _x__ Supportive presence ___ Wedding ___ Other (describe below) Pastoral Comments patient speaks of her fall and states that things are going well now; pt engages in casual conversation; no other concerns identified; support offered as needed; pt welcomes prayer support
[2021-12-07] MEDS: Montelukast 10 MG Tablet PO (23:09)
[2021-12-08] VITALS (8 sets, daily range): BP systolic 105–149; BP diastolic 49–79; PULSE 82–87; RESP 16–18; TEMP 36.3–36.7; O2SAT 94–100
[2021-12-08] MEDS: 0.9% Normal Saline 1,000 ML 100 ML IV (00:51)
[2021-12-08 07:28] LABS: Absolute Neutrophil Count 1.3 X10^3/uL (2.0-7.7); Basophil# 0.02 X10^3/uL; Basophil% 0.7 % (0-1); Eosinophil# 0.12 X10^3/uL; Hematocrit 29.4 % (37-47); Hemoglobin 9.5 g/dL (12.0-15.0); Lymphocyte % 39.7 % (19-41); Mean Corp Hgb Conc 32.3 g/dL (32-36); Mean Corpuscular Hgb 30.1 pg (27.0-32.0); Mean Platelet Vol. 9.3 fl (6.2-12.0); Monocyte# 0.37 X10^3/uL; Monocyte% 12.3 % (0-10); NRBC Flagged by Analyzer 0 % (0-5); Neutrophil # 1.29 X10^3/uL (2.7-7.7); Neutrophil % 42.6 % (47-70); Platelet Count 154 K/mm3 (150-450); RBC Distribution Width CV 13.2 % (11.6-14.6); Red Blood Count 3.16 M/mm3 (4.2-5.4)
--- NOTE | 2021-12-08 07:37 | PCM.PN.HOSP ---
Subjective Subjective Patient seen blood pressure remains relatively low but orthostatics negative. Kidney function did improve with rehydration. Patient be assessed for possible discharge Objective Data Objective Data Vital Signs: Vital Signs Temp Pulse Resp BP Pulse Ox O2 Del Method 97.4 F L 83 16 109/58 L 94 Room Air 12/08/21 02:48 12/08/21 02:48 12/08/21 02:48 12/08/21 02:48 12/08/21 02:48 12/08/21 02:48 Oxygen Delivery Method Room Air Weight: 77.6 kg Body Mass Index (BMI) 25.9 Intake & Output: Intake and Output for Last 24 Hours 12/06/21 12/07/21 12/08/21 23:59 23:59 23:59 Intake Total 1100 / 1100 Balance 1100 / 1100 Medical Nutrition Assessment Dietitian: Malnutrition Criteria Met Start: 12/07/21 10:33 Freq: Status: Active Protocol: Document 12/07/21 10:33 AG (Rec: 12/07/21 10:33 [id number]) Nutrition Malnutrition Evidence of Malnutrition Exists Yes Malnutrition (moderate): Acute Illness/Injury Evidenced By Suboptimal Energy Intake ( Moderate),Weight Loss ( Moderate) Clinical Problem Acute Disease or Injury Related Malnutrition Etiology moderate, acute malnutrition related to decreased appetite w/ acute illness Signs/Symptoms as evidenced by unintentional wt loss of 8.4#/4.7% < 1 month ; estimated PO intake meeting <75% of estimated energy needs >1 week Status Active Problem Recommendation Dietitian Recommendations/Changes will adjust diet to regular given signs/symptoms of acute malnutrition; continue 240mL ensure plus high protein w/ meals Lab / Micro Data Result Diagrams: 12/08/21 07:10 12/08/21 07:10 Labs: Laboratory Results - last 24 hr 12/08/21 07:10: WBC 3.0 L, RBC 3.16 L, Hgb 9.5 L, Hct 29.4 L, MCV 93.0, MCH 30.1, MCHC 32.3, RDW Std Deviation 45.0 H, RDW Coeff of Dave 13.2, Plt Count 154, MPV 9.3, Immature Gran % (Auto) 0.700, Neut % (Auto) 42.6 L, Lymph % (Auto) 39.7, [place] % (Auto) 12.3 H, Eos % (Auto) 4.0, Baso % (Auto) 0.7, Absolute Neuts (auto) 1.3 L, Absolute Lymphs (auto) 1.20, Nucleated RBC % 0 Micro: Microbiology 12/06/21 15:17 Nasal Secretion SARS-CoV-2 Antigen (Rapid) - Final SARS-CoV-2 (COVID 19) Physical Exam Narrative GENERAL: cooperative HEENT: Atraumatic; normocephalic EYES; Anicteric, Normal Conjunctiva NECK; supple, normal thyroid, RESPIRATORY: Diminished to auscultation CARDIOVASCULAR: Regular S1 S2, GI: soft, normoactive bowel sounds, : No Renal angle tenderness; EXTREMITIES: No edema, no clubbing, MUSCULOSKELETAL: no muscle wasting NEURO: Awake; no lateralizing signs. SKIN: No Rash PSYCH; Flat affect Assessment & Plan Assessment/Plan (1) Closed head injury: PLAN: Plan Patient is an 86-year-old lady with recent diagnosis of COVID-19 on 11/15/2021 who presented with progressive generalized weakness and mechanical fall after tripping on a dog. CT of the head and cervical spine unremarkable admitted to regular nursing floor for further management 1. Acute mechanical fall ? Initial imaging studies came back unremarkable admitted to regular nursing floor requested for PT OT eval and transition social worker to assist with discharge planning ? 11/08/2021 plan is for home with home PT 2. Recent COVID-19 infection ? Plan is to treat symptomatically 3. Paroxysmal atrial fibrillation ? Rate controlled patient is on systemic anticoagulation with Eliquis 4. COPD ? Currently not in exacerbation aerosol treatments as needed 5. Hypertension - Blood pressure controlled, home medications continued with dose adjustment as needed ? 11/08/2021 adjusted patient blood pressure medications with discontinuation of most of her antihypertensives in view of her relatively low blood pressure 6. Acute on chronic kidney disease stage IIIa ? Any function improved with rehydration 7. DVT prophylaxis ? Patient is on Eliquis CODE STATUS full code Charges/Coding Visit Charges Inpatient E&M: 82760 Subs Hosp L2
[2021-12-08 07:49] LABS: Anion Gap 5 (5-15); BUN 26 mg/dL (7-18); BUN/Creat Ratio 24.1 RATIO (10-20); Chloride 111 mmol/L (98-107); Creatinine, Serum 1.08 mg/dL (0.55-1.02); EST Glomerular Filtration Rate 51 mL/min (>60); Est Glom Filt Rate - Afr Amer 62 mL/min (>60); Estimated Creatinine Clearance 39.12 ml/min; Glucose 93 mg/dL (74-106); Magnesium 1.6 mg/dL (1.6-2.6); Potassium 3.8 mmol/L (3.5-5.1); Sodium Level 142 mmol/L (136-145)
--- NOTE | 2021-12-08 09:45 | DS.PCM_ITS ---
Providers Date of Admission: 12/07/21 Date of Discharge: 12/08/21 Primary Care Physician: Dr. Levon White MD Reason For Visit: FALL, FAILURE TO THRIVE ADULT Diagnosis Discharge Diagnosis (1) Closed head injury: Status: Acute Code(s): S09.90XA - Unspecified injury of head, initial encounter Plan Patient is an 86-year-old lady with recent diagnosis of COVID-19 on 11/15/2021 who presented with progressive generalized weakness and mechanical fall after tripping on a dog. CT of the head and cervical spine unremarkable admitted to regular nursing floor for further management 1. Acute mechanical fall ? Initial imaging studies came back unremarkable admitted to regular nursing floor requested for PT OT eval and social worker palliative care to assist with discharge planning ? 11/08/2021 plan is for home with home PT 2. Recent COVID-19 infection ? Plan is to treat symptomatically 3. Paroxysmal atrial fibrillation ? Rate controlled patient is on systemic anticoagulation with Eliquis 4. COPD ? Currently not in exacerbation aerosol treatments as needed 5. Hypertension - Blood pressure controlled, home medications continued with dose adjustment as needed ? 11/08/2021 adjusted patient blood pressure medications with discontinuation of most of her antihypertensives in view of her relatively low blood pressure 6. Acute on chronic kidney disease stage IIIa ? Any function improved with rehydration 7. DVT prophylaxis ? Patient is on Eliquis CODE STATUS full code Medications at Discharge Home Medications aspirin 81 mg tablet,delayed release 81 mg PO DAILY@0800 [facility] 04/12/18 montelukast 10 mg tablet 10 mg PO QHS ALLERGIES 11/21/21 nystatin 100,000 unit/gram topical powder 1 applic topical DAILY 12/06/21 metoprolol tartrate 25 mg tablet 25 mg PO BID #120 tabs 12/08/21 Hospital Course Summary of Care Provided Minutes Spent on Discharge: 35 Physical Exam Narrative GENERAL: cooperative HEENT: Atraumatic; normocephalic EYES; Anicteric, Normal Conjunctiva NECK; supple, normal thyroid, RESPIRATORY: Diminished to auscultation CARDIOVASCULAR: Regular S1 S2, GI: soft, normoactive bowel sounds, : No Renal angle tenderness; EXTREMITIES: No edema, no clubbing, MUSCULOSKELETAL: no muscle wasting NEURO: Awake; no lateralizing signs. SKIN: No Rash PSYCH; Flat affect Medical Records Data Medical Nutrition Assessment Dietitian: Malnutrition Criteria Met Start: 12/07/21 10 :33 Freq: Status: Active Protocol: Document 12/07/21 10:33 AG (Rec: 12/07/21 10:33 [id number]) Nutrition Malnutrition Evidence of Malnutrition Exists Yes Malnutrition (moderate): Acute Illness/Injury Evidenced By Suboptimal Energy Intake ( Moderate),Weight Loss ( Moderate) Clinical Problem Acute Disease or Injury Related Malnutrition Etiology moderate, acute malnutrition related to decreased appetite w/ acute illness Signs/Symptoms as evidenced by unintentional wt loss of 8.4#/4.7% < 1 month ; estimated PO intake meeting <75% of estimated energy needs >1 week Status Active Problem Recommendation Dietitian Recommendations/Changes will adjust diet to regular given signs/symptoms of acute malnutrition; continue 240mL ensure plus high protein w/ meals Weight / BMI Weight Weight: 77.6 kg Body Mass Index (BMI) 25.9 ABG / Lab / Microbiology Data Result Diagrams: 12/08/21 07:10 12/08/21 07:10 Laboratory: Laboratory Results - last 24 hr 12/08/21 07:10: WBC 3.0 L, RBC 3.16 L, Hgb 9.5 L, Hct 29.4 L, MCV 93.0, MCH 30.1, MCHC 32.3, RDW Std Deviation 45.0 H, RDW Coeff of Dave 13.2, Plt Count 154, MPV 9.3, Immature Gran % (Auto) 0.700, Neut % (Auto) 42.6 L, Lymph % (Auto) 39.7, [place] % (Auto) 12.3 H, Eos % (Auto) 4.0, Baso % (Auto) 0.7, Absolute Neuts (auto) 1.3 L, Absolute Lymphs (auto) 1.20, Nucleated RBC % 0 12/08/21 07:10: Sodium 142, Potassium 3.8, Chloride 111 H, Carbon Dioxide 26.0, Anion Gap 5, BUN 26 H, Creatinine 1.08 H, Estim Creat Clear Calc 39.12, Est GFR (MDRD) Af Amer 62, Est GFR (MDRD) Non-Af 51 L, BUN/Creatinine Ratio 24.1 H, Glucose 93, Calcium 8.0 L, Magnesium 1.6 Microbiology: Microbiology 12/06/21 15:17 Nasal Secretion SARS-CoV-2 Antigen (Rapid) - Final SARS-CoV-2 (COVID 19) D/C Instructions Discharge Diet: No restrictions Discharge Activity: Return to Normal Activity Call your doctor if you observe: Fever of 101 or Higher, Shortness of breath, Fainting spells and Chest pain Meaningful Use Info Meaningful Use Diagnoses (Choose all that apply): None applicable Discharge Plan Admission Admit Date/Time: 12/07/21 12:25 Attending Provider: aDmian Suh Primary Care Provider: Levon White Consulting Providers: Isabella Epps Instructions Patient Instructions: ED Fall with Uncertain Cause, ED Head Injury (Adult), ED Neck Sprain or Strain Discharge Orders/Prescriptions Prescriptions: New metoprolol tartrate 25 mg Tablet 25 mg PO BID Qty: 120 0RF Continued aspirin 81 MG tablet 81 mg PO DAILY@0800 montelukast 10 mg tablet 10 mg PO QHS nystatin 100,000 unit/gram powder 1 applic topical DAILY Discontinued amlodipine 10 mg tablet 10 mg PO DAILY Qty: 90 3RF hydrochlorothiazide 25 mg tablet 25 mg PO DAILY Eliquis 2.5 mg tablet 2.5 mg PO BID benazepril 40 mg tablet 40 mg PO DAILY Qty: 90 1RF metoprolol tartrate 100 mg tablet 100 mg PO BID Qty: 180 3RF Referrals / Follow Up: Levon White MD [Primary Care Provider] - Within 1 Week Disposition Disposition (needs filled in before D/C Order can be placed): Home Health Service Charges/Coding Visit Charges Inpatient E&M: 21980 Disch Hosp
--- NOTE | 2021-12-08 10:10 | CASEMGMT ---
Pt son called in and requests pt to be bathed prior to dc. Answered questions regarding rx ordered and HHC resuming. Son denied further needs at this time. Updated aide on request for bathing. Notified [facility] Kathy that pt will be dc'd today.
[2021-12-08] MEDS: Nystatin Powder 15gm Bottle 1 APPLIC TOPICAL (10:30)
[2021-12-08] MEDS: Metoprolol Tartrate 25 MG Tablet PO (10:30)
[2021-12-08] MEDS: APIXABAN 2.5 MG TABLET PO (10:30)
[2021-12-08] MEDS: Aspirin E.C. 81 MG Tablet PO (10:30)
== END 2021-12-08 17:54 | disposition home health service (06) | DRG 641 ==
LOC: ED 16:05 → MS3 17:41
PROVIDERS: Admitting Provider Family Medicine; Emergency Provider Emergency Medicine; PCP Internal Medicine; Visit Provider Internal Medicine
DX: R62.7 Adult failure to thrive (principal); E44.0 Moderate protein-calorie malnutrition; N17.9 Acute kidney failure, unspecified; S09.90XA Unspecified injury of head, initial encounter; I95.89 Other hypotension; I48.0 Paroxysmal atrial fibrillation; I12.9 Hypertensive chronic kidney disease with stage 1 through stage 4 chronic kidney disease, or unspecified chronic kidney disease; N18.31 Chronic kidney disease, stage 3a; J44.9 Chronic obstructive pulmonary disease, unspecified; W01.198A Fall on same level from slipping, tripping and stumbling with subsequent striking against other object, initial encounter; R29.6 Repeated falls; Z68.25 Body mass index [BMI] 25.0-25.9, adult; Z79.82 Long term (current) use of aspirin; Z79.899 Other long term (current) drug therapy; Z86.16 Personal history of COVID-19
CPT/HCPCS: 36415; 70450; 72125; 80048; 80053; 83735; 85025; 87635; 87811; 97162; 97166; 97802; 99251; 99284; J7030; A4216; G0463; U0003; U0005

== ENCOUNTER → 2021-12-22 | Outpatient (CLI) | payer MEDICARE, OTHER, SELFPAY ==
[2021-12-22 12:03] LABS: Absolute Lymphocyte Count 1.28 X10^3/uL (0.83-4.51); Absolute Neutrophil Count 3.1 X10^3/uL (2.0-7.7); Basophil# 0.04 X10^3/uL; Basophil% 0.8 % (0-1); Eosinophil# 0.11 X10^3/uL; Eosinophils% 2.2 % (0-5); Hematocrit 35.3 % (37-47); Hemoglobin 11.5 g/dL (12.0-15.0); Lymphocyte # 1.28 X10^3/ul (0.83-4.51); Lymphocyte % 25.8 % (19-41); Mean Corp Hgb Conc 32.6 g/dL (32-36); Mean Corpuscular Hgb 30.8 pg (27.0-32.0); Mean Corpuscular Volume 94.6 fL (81-99); Mean Platelet Vol. 10.2 fl (6.2-12.0); Monocyte# 0.47 X10^3/uL; Monocyte% 9.5 % (0-10); NRBC Flagged by Analyzer 0 % (0-5); Neutrophil # 3.05 X10^3/uL (2.7-7.7); Neutrophil % 61.3 % (47-70); Platelet Count 219 K/mm3 (150-450); RBC Distribution Width CV 14.2 % (11.6-14.6); RBC Distribution Width SD 48.6 fl (35.1-43.9); Red Blood Count 3.73 M/mm3 (4.2-5.4)
[2021-12-22 12:23] LABS: ALB/GLOB Ratio 0.9 RATIO (0.9-2.4); AST(SGOT) 20 U/L (15-37); Alanine Aminotransfer ALT/SGPT 15 U/L (13-56); Albumin, Serum 3.1 g/dL (3.2-5.0); Alkaline Phosphatase 78 U/L (45-117); Anion Gap 6 (5-15); BUN 16 mg/dL (7-18); BUN/Creat Ratio 15.4 RATIO (10-20); Chloride 109 mmol/L (98-107); Creatinine, Serum 1.04 mg/dL (0.55-1.02); EST Glomerular Filtration Rate 54 mL/min (>60); Est Glom Filt Rate - Afr Amer 65 mL/min (>60); Globulin 3.6 g/dL (2.2-4.2); Glucose 110 mg/dL (74-106); Protein, Total 6.7 g/dL (6.4-8.2); Sodium Level 142 mmol/L (136-145)
== END | disposition home or self-care (01) ==
LOC: BIMLAB 10:13
PROVIDERS: PCP Internal Medicine; Referring Provider Internal Medicine; Visit Provider Internal Medicine
DX: I48.0 Paroxysmal atrial fibrillation (principal); M81.0 Age-related osteoporosis without current pathological fracture
CPT/HCPCS: 36415; 80053; 85025

== ENCOUNTER 2022-01-18 13:42 | Inpatient (IN) | payer MEDICARE, OTHER, SELFPAY ==
[2022-01-18] VITALS (10 sets, daily range): BP systolic 103–170; BP diastolic 53–101; PULSE 73–99; RESP 16; TEMP 36.2–36.4; O2SAT 87–97; BMI 27.3; BMI 26.4
--- NOTE | 2022-01-18 14:20 | RAD_ITS ---
STUDY: X-RAY - PELVIS AND LEFT HIP REASON FOR EXAM: Female, 86 years old. Pain following injury. TECHNIQUE: 3 views of the pelvis and hip. COMPARISON: Comparison is made with prior study dated 05/22/2020. FINDINGS: Moderate amount of fecal material is seen in the colon. Calcified fibroid uterus. There is narrowing with cortical sclerosis and osteophyte formation of the sacroiliac joint consistent with degenerative osteoarthritic changes. Nondisplaced fractures of the left superior and inferior pubic rami. There is narrowing with sclerosis of the pubic symphysis. Normal bilateral ischial tuberosities. Normal visualized femoral head. Normal acetabulum. There is mild articular joint space narrowing of the hip. RAD/HIP, UNI W/ Pelvis 2-3 Views IMPRESSION: Nondisplaced fractures involving the left superior and inferior pubic rami. Calcified fibroid uterus. Electronically Signed: Von Branham MD at 14:39 EST ,
--- NOTE | 2022-01-18 14:44 | EDS_ITS ---
HPI History of Present Illness Chief Complaint: Lower Extremity Injury Informant: patient and family Narrative Narrative: 86-year-old female presenting to the emergency department with left hip pain. Patient sustained a fall while getting up from the table today. She is no longer on a blood thinner but does take a baby aspirin. She is currently Bactrim for a UTI. She denies any other injuries. She has been able to bear weight but notes that it is very painful. 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 Coagulopathy Cognitive impairment Confusion COPD (chronic obstructive pulmonary disease) COVID-19 (11/16/21) Depression Dermatitis Dyspnea on exertion Elevated blood pressure reading in office with white coat syndrome, without diagnosis of hypertension Essential (primary) hypertension Essential hypertension Fall Fatigue Fracture, rib Hypertension after donor nephrectomy requiring medication Intertriginous dermatitis associated with moisture Localized swelling of left lower extremity Lung nodule seen on imaging study Obesity Osteoporosis Paroxysmal atrial fibrillation Pulmonary hypertension Recurrent UTI Secondary pulmonary arterial hypertension Shortness of breath Traumatic hematoma of right elbow Traumatic hematoma of right upper arm Home Medications aspirin 81 mg tablet,delayed release 81 mg PO DAILY@0800 [facility] 04/12/18 [History Last Taken 12/06/21] nystatin 100,000 unit/gram topical powder 1 applic topical DAILY 12/06/21 [History Last Taken 12/06/21] metoprolol tartrate 25 mg tablet 25 mg PO BID #180 tabs 01/11/22 [Rx Last Taken Unknown] montelukast 10 mg tablet 10 mg PO QHS ALLERGIES #90 tabs 01/11/22 [Rx Last Taken Unknown] sulfamethoxazole 800 mg-trimethoprim 160 mg tablet (Bactrim DS) 1 tab PO Q12H 7 days #14 tabs 01/14/22 [Rx Last Taken Unknown] Allergy/AdvReac Type Severity Reaction Status Date / Time amoxicillin Allergy Rash Verified 01/18/22 13:43 cefdinir Allergy Rash Verified 01/18/22 13:43 clavulanic acid Allergy Rash Verified 01/18/22 13:43 [From Augmentin] heparin Allergy Rash Verified 01/18/22 13:43 levofloxacin [From Levaquin] Allergy Rash Verified 01/18/22 13:43 antibiotic Allergy rash Uncoded 01/14/22 09:34 Family History Father Cancer Mother Hypertension Dementia Surgical History H/O basal cell carcinoma excision History of vein stripping Social History household members: family Smoking Status: Never smoker alcohol intake: never substance use type: does not use ROS ROS ED Constitutional Constitutional ED: Denies chills or weight loss Eyes Eyes: Denies change in vision or diplopia ENT ENT ED: Denies ear pain, rhinorrhea or sore throat Cardiovascular Cardiovascular: Denies chest pain, orthopnea, palpitations or racing heartbeat Respiratory/Chest Respiratory/Chest: Denies cough, dyspnea or orthopnea Gastrointestinal Gastrointestinal: Denies abdominal pain, diarrhea, nausea or vomiting Genitourinary Genitourinary ED: Denies dysuria, hematuria or urinary frequency Musculoskeletal Musculoskeletal: Reports other Details: See history of present illness ; Denies arthralgias or myalgias Integumentary Denies abscess or rash Neurologic Neurologic: Denies headache(s) or weakness Psychiatric Psychiatric: Denies anxiety, depression, suicidal ideation or suicidal thoughts Endocrine Endocrinology: Denies polydipsia, polyphagia or polyuria Allergic/Immunologic Allergic/Immunologic ED: Denies mouth swelling, tongue swelling or urticaria EXAM Physical Exam Const Vital Signs: 01/18/22 13:43 Temperature 97.6 F L Temperature Source Temporal Pulse Rate 82 Respiratory Rate 16 Blood Pressure 166/83 H Blood Pressure Mean 110 Pulse Ox 97 Oxygen Delivery Method Room Air Positive well nourished and well developed General Appearance ED: well developed HEENT Reports normocephalic, head/scalp atraumatic and moist mucous membranes Eyes PERRL and EOMs intact bilaterally Neck no lymphadenopathy, supple and no JVD Resp normal respiratory effort and clear to auscultation bilaterally Cardio regular rate, regular rhythm and no murmurs GI normal to inspection, nondistended, normoactive bowel sounds and non-tender Palpation: soft Back/Spine no CVA tenderness and normal ROM Extremity Extremity Narrative: Patient has tenderness to palpation over the pubic bone on the left. Pain with logroll General Extremety ED: Negative for edema General Extremity: Negative for edema Neuro oriented x3 and CN's II-XII intact bilaterally Sensorium / Orientation: alert Motor Exam: strength 5/5 throughout Psych mental status grossly normal Mood & Affect: Negative for depressed or tearful Skin no rashes or lesions noted and no wounds MDM MDM MDM Narrative Medical decision making narrative: My interpretation of the plain films of the left hip and pelvis is nondisplaced fracture involving the left superior and inferior pubic rami. The patient is having significant pain and received a dose of morphine. She is unable to really go home and care for herself and would benefit from some rehab. I will speak with the hospitalist regarding admission Lab Data Attestation: I reviewed the patient's lab results. Labs: Laboratory Results - last 24 hr 01/18/22 01/18/22 14:55 14:55 WBC 9.0 RBC 3.88 L Hgb 11.6 L Hct 36.3 L MCV 93.6 MCH 29.9 MCHC 32.0 RDW Std Deviation 46.6 H RDW Coeff of Dave 13.7 Plt Count 185 MPV 10.2 Immature Gran % (Auto) 1.500 H Neut % (Auto) 83.6 H Lymph % (Auto) 8.6 L [place] % (Auto) 5.4 Eos % (Auto) 0.6 Baso % (Auto) 0.3 Absolute Neuts (auto) 7.5 Absolute Lymphs (auto) 0.77 L Nucleated RBC % 0 Sodium 140 Potassium 4.0 Chloride 107 Carbon Dioxide 25.0 Anion Gap 8 BUN 18 Creatinine 1.23 H Estim Creat Clear Calc 34.35 Est GFR (MDRD) Af Amer 54 L Est GFR (MDRD) Non-Af 44 L BUN/Creatinine Ratio 14.6 Glucose 140 H Calcium 9.0 Total Bilirubin 0.40 AST 21 ALT 24 Alkaline Phosphatase 78 Total Protein 6.8 Albumin 3.3 Globulin 3.5 Albumin/Globulin Ratio 0.9 Radiography Diagnostic Testing: Clinical Impression(s) from Imaging Studies Hip/Pelvis X-Ray 01/18/22 14:20 IMPRESSION: Nondisplaced fractures involving the left superior and inferior pubic rami. Calcified fibroid uterus. Electronically Signed: Von Branham MD at 14:39 EST , Discharge Plan Dx/Rx/DC Orders Clinical Impression: Paroxysmal atrial fibrillation, Essential hypertension, UTI (urinary tract infection), Fracture, pelvis closed Disposition Disposition: Acute Care Hospital [facility] Discharge Date/Time: 01/18/22 15:36
[2022-01-18] MEDS: Ondansetron 4 MG/2 ML Vial IV (14:55)
[2022-01-18] MEDS: Morphine 4 MG/ML Syringe IV (14:55)
[2022-01-18 15:08] LABS: Absolute Lymphocyte Count 0.77 X10^3/uL (0.83-4.51); Absolute Neutrophil Count 7.5 X10^3/uL (2.0-7.7); Basophil# 0.03 X10^3/uL; Basophil% 0.3 % (0-1); Eosinophil# 0.05 X10^3/uL; Eosinophils% 0.6 % (0-5); Hematocrit 36.3 % (37-47); Hemoglobin 11.6 g/dL (12.0-15.0); Lymphocyte # 0.77 X10^3/ul (0.83-4.51); Lymphocyte % 8.6 % (19-41); Mean Corpuscular Hgb 29.9 pg (27.0-32.0); Mean Corpuscular Volume 93.6 fL (81-99); Mean Platelet Vol. 10.2 fl (6.2-12.0); Monocyte# 0.48 X10^3/uL; Monocyte% 5.4 % (0-10); NRBC Flagged by Analyzer 0 % (0-5); Neutrophil # 7.49 X10^3/uL (2.7-7.7); Neutrophil % 83.6 % (47-70); Platelet Count 185 K/mm3 (150-450); RBC Distribution Width CV 13.7 % (11.6-14.6); RBC Distribution Width SD 46.6 fl (35.1-43.9); Red Blood Count 3.88 M/mm3 (4.2-5.4)
[2022-01-18 15:24] LABS: ALB/GLOB Ratio 0.9 RATIO (0.9-2.4); AST(SGOT) 21 U/L (15-37); Alanine Aminotransfer ALT/SGPT 24 U/L (13-56); Albumin, Serum 3.3 g/dL (3.2-5.0); Alkaline Phosphatase 78 U/L (45-117); Anion Gap 8 (5-15); BUN 18 mg/dL (7-18); BUN/Creat Ratio 14.6 RATIO (10-20); Chloride 107 mmol/L (98-107); Creatinine, Serum 1.23 mg/dL (0.55-1.02); EST Glomerular Filtration Rate 44 mL/min (>60); Est Glom Filt Rate - Afr Amer 54 mL/min (>60); Estimated Creatinine Clearance 34.35 ml/min; Globulin 3.5 g/dL (2.2-4.2); Glucose 140 mg/dL (74-106); Protein, Total 6.8 g/dL (6.4-8.2); Sodium Level 140 mmol/L (136-145)
--- NOTE | 2022-01-18 16:23 | PN.HOSP_ITS ---
Subjective Subjective Patient is an 86-year-old female with a past medical history as outlined was admitted with a complaint of mechanical fall. Patient states she was getting up from the table after eating her meal and sustained a fall. She denied any lightheadedness or dizziness or palpitations prior to this fall and does not think she passed out. She was unable to get up by herself. Her life alert was present and the EMS came and got her up. Her son says that there are cameras in the house when he reviewed the cameras he did not see the time that she fell and only so images of when she was sitting at the chair and when she was subsequently on the ground after the fall. She does have a history of falls according to the son and granddaughter. Patient lives with her son. She denied any palpitations, chest pain, nausea, vomiting or diarrhea. Review of systems otherwise negative. She was recently admitted where according to the granddaughter she was taken off her blood pressure medications due to concerns about orthostatic hypotension. She is to be on a blood thinner but this was discontinued due to her history of falls. Patient was able to weight-bear but said this was very painful. Vitals in the ED were blood pressure 135/101 with pulse rate of 80 and respiratory of 16. Temperature was 97.6 Fahrenheit and she was saturating at 96% on 2 L of oxygen. CBC and BMP were largely unremarkable. Urinalysis showed nondisplaced fractures involving the left superior and inferior pubic rami with calcified fibroid uterus. She has been admitted to be managed for pubic rami fracture due to mechanical fall and debility. Objective Data Objective Data Vital Signs: Vital Signs Temp Pulse Resp BP Pulse Ox O2 Del Method O2 Flow Rate 97.6 F L 80 16 135/101 H 96 Nasal Cannula 2 01/18/22 15:26 01/18/22 15:26 01/18/22 15:26 01/18/22 15:26 01/18/22 15:26 01/18/22 15:26 01/18/22 15:26 Oxygen Flow Rate (L/min) 2 Oxygen Delivery Method Nasal Cannula Weight: 180 lb Body Mass Index (BMI) 27.3 Lab / Micro Data Result Diagrams: 01/18/22 14:55 01/18/22 14:55 Labs: Laboratory Results - last 24 hr 01/18/22 14:55: WBC 9.0, RBC 3.88 L, Hgb 11.6 L, Hct 36.3 L, MCV 93.6, MCH 29.9, MCHC 32.0, RDW Std Deviation 46.6 H, RDW Coeff of Dave 13.7, Plt Count 185, MPV 10.2, Immature Gran % (Auto) 1.500 H, Neut % (Auto) 83.6 H, Lymph % (Auto) 8.6 L , [place] % (Auto) 5.4, Eos % (Auto) 0.6, Baso % (Auto) 0.3, Absolute Neuts (auto) 7.5, Absolute Lymphs (auto) 0.77 L, Nucleated RBC % 0 01/18/22 14:55: Sodium 140, Potassium 4.0, Chloride 107, Carbon Dioxide 25.0, Anion Gap 8, BUN 18, Creatinine 1.23 H, Estim Creat Clear Calc 34.35, Est GFR (MDRD) Af Amer 54 L, Est GFR (MDRD) Non-Af 44 L, BUN/Creatinine Ratio 14.6, Glucose 140 H, Calcium 9.0, Total Bilirubin 0.40, AST 21, ALT 24, Alkaline Phosphatase 78, Total Protein 6.8, Albumin 3.3, Globulin 3.5, Albumin/Globulin Ratio 0.9 Radiography Diagnostic Testing: Radiology Impression Hip/Pelvis X-Ray 01/18/22 14:20 IMPRESSION: Nondisplaced fractures involving the left superior and inferior pubic rami. Calcified fibroid uterus. Electronically Signed: Von Branham MD at 14:39 EST ,
--- NOTE | 2022-01-18 16:26 | PCM.HP.STD ---
HPI - General General Date of Admission: 01/18/22 Date of Service: 01/18/22 Chief Complaint: mechanical fall HPI Narrative Patient is an 86-year-old female with a past medical history as outlined was admitted with a complaint of mechanical fall. Patient states she was getting up from the table after eating her meal and sustained a fall. She denied any lightheadedness or dizziness or palpitations prior to this fall and does not think she passed out. She was unable to get up by herself. Her life alert was present and the EMS came and got her up. Her son says that there are cameras in the house when he reviewed the cameras he did not see the time that she fell and only so images of when she was sitting at the chair and when she was subsequently on the ground after the fall. She does have a history of falls according to the son and granddaughter. Patient lives with her son. She denied any palpitations, chest pain, nausea, vomiting or diarrhea. Review of systems otherwise negative. She was recently admitted where according to the granddaughter she was taken off her blood pressure medications due to concerns about orthostatic hypotension. She is to be on a blood thinner but this was discontinued due to her history of falls. Patient was able to weight-bear but said this was very painful. Vitals in the ED were blood pressure 135/101 with pulse rate of 80 and respiratory of 16. Temperature was 97.6 Fahrenheit and she was saturating at 96% on 2 L of oxygen. CBC and BMP were largely unremarkable. Urinalysis showed nondisplaced fractures involving the left superior and inferior pubic rami with calcified fibroid uterus. She has been admitted to be managed for pubic rami fracture due to mechanical fall and debility. 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 Coagulopathy Cognitive impairment Confusion COPD (chronic obstructive pulmonary disease) COVID-19 (11/16/21) Depression Dermatitis Dyspnea on exertion Elevated blood pressure reading in office with white coat syndrome, without diagnosis of hypertension Essential (primary) hypertension Essential hypertension Fall Fatigue Fracture, rib Hypertension after donor nephrectomy requiring medication Intertriginous dermatitis associated with moisture Localized swelling of left lower extremity Lung nodule seen on imaging study Obesity Osteoporosis Paroxysmal atrial fibrillation Pulmonary hypertension Recurrent UTI Secondary pulmonary arterial hypertension Shortness of breath Traumatic hematoma of right elbow Traumatic hematoma of right upper arm Home Medications aspirin 81 mg tablet,delayed release 81 mg PO DAILY Heart Health 04/12/18 [History Last Taken 01/18/22] nystatin 100,000 unit/gram topical powder 1 applic topical DAILY PRN SKIN UNDER BREASTS 12/06/21 [History Last Taken 01/18/22] montelukast 10 mg tablet 10 mg PO QHS ALLERGIES #90 tabs 01/11/22 [Rx Last Taken 01/17/22] metoprolol tartrate 25 mg tablet 25 mg PO BID BLOOD PRESSURE 01/18/22 [History Last Taken 01/18/22] sulfamethoxazole 800 mg-trimethoprim 160 mg tablet (Bactrim DS) 1 tab PO Q12H ANTIBIOTIC 01/18/22 [History Last Taken 01/18/22] Allergy/AdvReac Type Severity Reaction Status Date / Time amoxicillin Allergy Rash Verified 01/18/22 13:43 cefdinir Allergy Rash Verified 01/18/22 13:43 clavulanic acid Allergy Rash Verified 01/18/22 13:43 [From Augmentin] heparin Allergy Rash Verified 01/18/22 13:43 levofloxacin [From Levaquin] Allergy Rash Verified 01/18/22 13:43 antibiotic Allergy rash Uncoded 01/14/22 09:34 Family History Father Cancer Mother Hypertension Dementia Surgical History H/O basal cell carcinoma excision History of vein stripping Social History household members: family Smoking Status: Never smoker alcohol intake: never substance use type: does not use ROS Constitutional Constitutional: Reports malaise and weakness; Denies anorexia, chills, fatigue or fever(s) Eyes Eyes: Denies change in vision ENT HEENT: Denies dysphagia or headache(s) Cardiovascular Cardiovascular: Denies chest pain, dyspnea on exertion, edema, lightheadedness, orthopnea, palpitations, rapid heart rate or syncope Respiratory/Chest Respiratory/Chest: Denies cough, dyspnea, productive cough, shortness of breath at rest or shortness of breath with exertion Gastrointestinal Gastrointestinal: Denies abdominal pain, constipation, nausea or vomiting Genitourinary Genitourinary: Denies dysuria Musculoskeletal Musculoskeletal: Reports joint pain; Denies arthralgias or back pain Neurologic Neurologic: Denies abnormal gait, confusion, disequilibrium, dizziness, focal weakness, headache(s), numbness, seizures or syncope Endocrine Endocrinology: Denies change in body appearance Hematologic/Lymphatic Hematologic/Lymphatic: Denies anemia Vital Signs Vital Signs Vital Signs: 01/18/22 13:43 01/18/22 15:26 01/18/22 15:25 Temperature 97.6 F L 97.6 F L Temperature Source Temporal Temporal Pulse Rate 82 80 Respiratory Rate 16 16 Blood Pressure 166/83 H 135/101 H Blood Pressure Mean 110 112 Pulse Ox 97 96 87 Oxygen Delivery Method Room Air Nasal Cannula Room Air Oxygen Flow Rate (L/min) 2 Weight Weight: 174 lb Body Mass Index (BMI) 26.4 Physical Exam Const alert, no apparent distress, average body habitus and healthy appearing Constitutional Narrative: has mild confusion but able to communicate General Appearance: cooperative HEENT normocephalic, head/scalp atraumatic, hearing grossly normal bilaterally and moist oral mucous membranes Mouth: oral and palatal mucosa normal Eyes PERRL, EOMs intact bilaterally and conjunctivae normal Neck no lymphadenopathy, supple and no JVD Resp normal respiratory effort, no retractions, no use of accessory muscles and clear to auscultation bilaterally Cardio regular rate, S1 normal heart sound, S2 normal heart sound and no murmurs Cardio Narrative: afib, rate controlled GI normal to inspection, nondistended, normoactive bowel sounds, soft to palpation, non-tender and non-distended Extremity normal to inspection Extremity Narrative: has pain with lifting up her LEs with assistance, limited range of motion due to pubic rami fracture Neuro CN's II-XII intact bilaterally and no focal motor deficits Neuro Narrative: limted range of movement, alert and communicative but has mild confusion Results Lab / Micro Data Result Diagrams: 01/18/22 14:55 01/18/22 14:55 Labs: Laboratory Results - last 24 hr 01/18/22 14:55: WBC 9.0, RBC 3.88 L, Hgb 11.6 L, Hct 36.3 L, MCV 93.6, MCH 29.9, MCHC 32.0, RDW Std Deviation 46.6 H, RDW Coeff of Dave 13.7, Plt Count 185, MPV 10.2, Immature Gran % (Auto) 1.500 H, Neut % (Auto) 83.6 H, Lymph % (Auto) 8.6 L, [place] % (Auto) 5.4, Eos % (Auto) 0.6, Baso % (Auto) 0.3, Absolute Neuts (auto) 7.5, Absolute Lymphs (auto) 0.77 L, Nucleated RBC % 0 01/18/22 14:55: Sodium 140, Potassium 4.0, Chloride 107, Carbon Dioxide 25.0, Anion Gap 8, BUN 18, Creatinine 1.23 H, Estim Creat Clear Calc 34.35, Est GFR (MDRD) Af Amer 54 L, Est GFR (MDRD) Non-Af 44 L, BUN/Creatinine Ratio 14.6, Glucose 140 H, Calcium 9.0, Total Bilirubin 0.40, AST 21, ALT 24, Alkaline Phosphatase 78, Total Protein 6.8, Albumin 3.3, Globulin 3.5, Albumin/Globulin Ratio 0.9 Radiology Impression Hip/Pelvis X-Ray 01/18/22 14:20 IMPRESSION: Nondisplaced fractures involving the left superior and inferior pubic rami. Calcified fibroid uterus. Electronically Signed: Von Branham MD at 14:39 EST Reading Location ID and State: [address] [place] [address] , Service support , Assessment & Plan Assessment/Plan (1) Fracture, pelvis closed: (2) UTI (urinary tract infection): (3) Frequent falls: PLAN: Plan #Bilateral pubic rami fracture due to mechanical fall admit to med surg does have a history of frequent falls PT/OT consult imaging showed bilateral superior and inferior pubic rami fracture PO tylenol, PO oxycodone and IV morphine prn for pain fall precautions amenable to placement #UTI Was recently diagnosed with UTI and was started on Bactrim for 7-day course. Today is day 5. To continue to complete 5-day course. #A. fib: Rate controlled. On metoprolol. Not on any blood thinners due to history of falls. On aspirin. DVT prophylaxis: SCDs CODE STATUS: Presumptive full code Patient, her son and granddaughter counseled about CODE STATUS and different types of CODE STATUS. Granddaughter stated that patient had told her during her previous stay in the hospital that she wanted everything done for her until her heart stopped. Patient could not confirm this today and did not appear to have a full understanding of what the different types of CODE STATUS meant. Per discussion with son and granddaughter, will make patient a presumptive full code for now and in the event that she needs resuscitation, his son who is a power of document review attorney will decide then what he wants done. Total [id number] time 17 minutes Charges/Coding Visit Charges OBSV E&M: 56061 Initial observation care L2 Procedures Hospitalists Procedures: 60287 Advncd Care Plan 30 Min
[2022-01-18] MEDS: Morphine 2 MG/ML Syringe IV (17:36)
[2022-01-18] MEDS: 0.9% Normal Saline 1,000 ML 125 ML IV (18:00)
[2022-01-18] MEDS: Smz/Tmp Ds Tablet 1 TABLET PO (18:14)
[2022-01-18] MEDS: Metoprolol Tartrate 25 MG Tablet PO (21:01)
[2022-01-18] MEDS: Montelukast 10 MG Tablet PO (21:02)
[2022-01-19] VITALS (8 sets, daily range): BP systolic 135–194; BP diastolic 73–87; PULSE 67–82; RESP 16–18; TEMP 36.5–37.2; O2SAT 94–98
[2022-01-19] MEDS: Acetaminophen 325 MG Tablet 650 MG PO
[2022-01-19] MEDS: 0.9% Normal Saline 1,000 ML 125 ML IV (02:27)
[2022-01-19] MEDS: Metoprolol Tartrate 25 MG Tablet PO (04:19)
[2022-01-19 06:56] LABS: Absolute Neutrophil Count 4.3 X10^3/uL (2.0-7.7); Basophil# 0.03 X10^3/uL; Basophil% 0.5 % (0-1); Eosinophil# 0.08 X10^3/uL; Eosinophils% 1.4 % (0-5); Hemoglobin 10.7 g/dL (12.0-15.0); Lymphocyte % 12.3 % (19-41); Mean Corp Hgb Conc 32.4 g/dL (32-36); Mean Corpuscular Hgb 30.4 pg (27.0-32.0); Mean Corpuscular Volume 93.8 fL (81-99); Mean Platelet Vol. 10.6 fl (6.2-12.0); Monocyte# 0.52 X10^3/uL; Monocyte% 9.1 % (0-10); NRBC Flagged by Analyzer 0 % (0-5); Neutrophil # 4.33 X10^3/uL (2.7-7.7); Neutrophil % 76.2 % (47-70); Platelet Count 160 K/mm3 (150-450); RBC Distribution Width CV 13.7 % (11.6-14.6); RBC Distribution Width SD 46.3 fl (35.1-43.9); Red Blood Count 3.52 M/mm3 (4.2-5.4); White Blood Count 5.7 K/mm3 (4.4-11.0)
[2022-01-19 07:21] LABS: Anion Gap 6 (5-15); BUN 15 mg/dL (7-18); BUN/Creat Ratio 14.9 RATIO (10-20); Calcium,Total 8.6 mg/dL (8.5-10.1); Chloride 108 mmol/L (98-107); Creatinine, Serum 1.01 mg/dL (0.55-1.02); EST Glomerular Filtration Rate 56 mL/min (>60); Est Glom Filt Rate - Afr Amer 67 mL/min (>60); Estimated Creatinine Clearance 41.83 ml/min; Glucose 108 mg/dL (74-106); Potassium 4.4 mmol/L (3.5-5.1); Sodium Level 139 mmol/L (136-145)
[2022-01-19] MEDS: Smz/Tmp Ds Tablet 1 TABLET PO (08:31)
[2022-01-19] MEDS: Aspirin E.C. 81 MG Tablet PO (08:31)
[2022-01-19] MEDS: Acetaminophen 500 MG Tablet 1000 MG PO (08:37)
--- NOTE | 2022-01-19 09:41 | CASEMGMT ---
Addendum entered by Terri Carvalho 01/19/22 09:45: ANNALISA updated Dr. Justice of pt acceptance at [facility]. Original Note: Social Work SW in to meet with pt following update from that pt will need placement at nursing facility. SW introduced self and role at the hospital. Pt agreeable to discussing discharge planning. A list of SNF providers including quality and resource use data and consistent with the patient?s preferred geographic region, medical needs, and insurance network were [facility]. Pt asked this SW to discuss options with son, Javier and let him make decision. SW spoke to Javier via phone and discussed SNF choices. SW read list to Javier and Javier [facility]. SW reached out to Vanda at [facility]. Vanda has open beds. Vanda reviewed and able to accept pt. PLAN: TCU ? [facility]
[2022-01-19] MEDS: Enoxaparin 40 MG/0.4 ML Syringe SC (10:25)
--- NOTE | 2022-01-19 10:41 | PCM.DC.SUM ---
Providers Date of Admission: 01/18/22 Date of Discharge: 01/19/22 Primary Care Physician: Dr. Levon White MD Reason For Visit: PUBIC RAMI FRACTURE Diagnosis Discharge Diagnosis (1) Fracture, pelvis closed: Status: Acute Code(s): S32.9XXA - Fracture of unspecified parts of lumbosacral spine and pelvis, initial encounter for closed fracture (2) UTI (urinary tract infection): Status: Acute Code(s): N39.0 - Urinary tract infection, site not specified (3) Frequent falls: Status: Acute Code(s): R29.6 - Repeated falls Medications at Discharge Home Medications aspirin 81 mg tablet,delayed release 81 mg PO DAILY Heart Health 04/12/18 nystatin 100,000 unit/gram topical powder 1 applic topical DAILY PRN SKIN UNDER BREASTS 12/06/21 montelukast 10 mg tablet 10 mg PO QHS ALLERGIES #90 tabs 01/11/22 metoprolol tartrate 25 mg tablet 25 mg PO BID BLOOD PRESSURE 01/18/22 sulfamethoxazole 800 mg-trimethoprim 160 mg tablet (Bactrim DS) 1 tab PO Q12H ANTIBIOTIC 01/18/22 enoxaparin 40 mg/0.4 mL subcutaneous syringe 40 mg (0.4 mL) subcut DAILY #0 mL 01/19/22 oxycodone 5 mg tablet 5 mg PO Q4H PRN PRN Pain Score 4-10 1 day #6 tabs 01/19/22 Hospital Course Operations None Procedures None Summary of Care Provided Minutes Spent on Discharge: 33 Hospital Course: Mrs. Crowder is an 86-year-old white female who presented to the emergency department [facility] on 01/18/2022 after she sustained a mechanical fall and experienced hip pain. Patient reported that she was getting up from the table after eating and tripped. She was unable to get up by herself and her life alert was pressed and EMS came and got her up. Patient does have a known history of falls and is currently living with her son in [place]. She states she is initially from [place]. Other than her pain she had no other symptoms. She was taken off most of her blood pressure medications previously due to concerns of orthostatic hypotension. She also was taken off oral anticoagulation for her atrial fibrillation due to her falls. She was recently diagnosed with a urinary tract infection has been on Bactrim and has 2 more days to complete including 01/19/2022. Stop date on her antibiotics will be after her doses on 01/20/2022. Vitals signs upon presentation demonstrated blood pressure 135/101 with pulse rate of 80 and respiratory of 16, she was afebrile and her oxygen saturation was 96% on 2 L nasal cannula.? CBC and BMP were largely unremarkable.? X-ray of her hips and pelvis showed nondisplaced fractures involving the left superior and inferior pubic rami with calcified fibroid uterus. She was unfortunately unable to ambulate and required admission for placement. She was maintained on her oral antibiotics for her UTI and was evaluated by physical and Occupational Therapy during her hospital course. They recommended ongoing skilled therapy at discharge. The patient agreed to placement at the transitional care unit and a bed was available on 01/19/2022. The patient was discharged in stable condition with 1 day supply of pain medication. I did discuss with the patient that she will have ongoing pain however the fracture is stable and that the best thing she can do is to continue work with physical therapy. Discharge diagnoses: Left superior/inferior pubic ramus fracture Debility Frequent falls Urinary tract infection-resolving History of orthostatic hypotension History of hypertension History of atrial fibrillation with RVR Mild cognitive impairment History of COPD Seasonal allergies Physical Exam Const alert, oriented x3, no apparent distress and well nourished Constitutional Narrative: Elderly white female sitting up in bed watching television eating breakfast, appears comfortable and nontoxic, very pleasant, reports her pain is well controlled at this time General Appearance: cooperative, comfortable, well kempt and well developed Orientation / Consciousness: awake, oriented to person, oriented to place and oriented to time Exam Limitations: no limitations Nutritional Appearance: overweight HEENT normocephalic, head/scalp atraumatic and moist oral mucous membranes HEENT Narrative: Mild hearing impairment, Mallampati 2, no thrush Eyes PERRL and EOMs intact bilaterally Eyes Narrative: No scleral icterus Neck supple Neck Narrative: Trachea midline, no thyroid enlargement Resp normal respiratory effort, no retractions, no use of accessory muscles and clear to auscultation bilaterally Auscultation: Negative for crackles, rales, rhonchi or wheezes Cardio regular rate, regular rhythm, S1 normal heart sound, S2 normal heart sound, no murmurs, no rub, no gallops and no clicks GI normal to inspection, nondistended, normoactive bowel sounds, soft to palpation and non-tender Extremity no clubbing, cyanosis or edema Extremity Narrative: 2+ pedal pulses Neuro oriented x3 and CN's II-XII intact bilaterally Neuro Narrative: Decreased movement especially left lower extremity secondary to pain however no focal deficits Speech: speech normal Psych affect normal Psych Narrative: Very pleasant and appropriately interactive Weight / BMI Weight Weight: 78.925 kg Body Mass Index (BMI) 26.4 ABG / Lab / Microbiology Data Result Diagrams: 01/19/22 05:50 01/19/22 05:50 Laboratory: Laboratory Results - last 24 hr 01/18/22 14:55: WBC 9.0, RBC 3.88 L, Hgb 11.6 L, Hct 36.3 L, MCV 93.6, MCH 29.9, MCHC 32.0, RDW Std Deviation 46.6 H, RDW Coeff of Dave 13.7, Plt Count 185, MPV 10.2, Immature Gran % (Auto) 1.500 H, Neut % (Auto) 83.6 H, Lymph % (Auto) 8.6 L, [place] % (Auto) 5.4, Eos % (Auto) 0.6, Baso % (Auto) 0.3, Absolute Neuts (auto) 7.5, Absolute Lymphs (auto) 0.77 L, Nucleated RBC % 0 01/18/22 14:55: Sodium 140, Potassium 4.0, Chloride 107, Carbon Dioxide 25.0, Anion Gap 8, BUN 18, Creatinine 1.23 H, Estim Creat Clear Calc 34.35, Est GFR (MDRD) Af Amer 54 L, Est GFR (MDRD) Non-Af 44 L, BUN/Creatinine Ratio 14.6, Glucose 140 H, Calcium 9.0, Total Bilirubin 0.40, AST 21, ALT 24, Alkaline Phosphatase 78, Total Protein 6.8, Albumin 3.3, Globulin 3.5, Albumin/Globulin Ratio 0.9 01/19/22 05:50: WBC 5.7, RBC 3.52 L, Hgb 10.7 L, Hct 33.0 L, MCV 93.8, MCH 30.4, MCHC 32.4, RDW Std Deviation 46.3 H, RDW Coeff of Dave 13.7, Plt Count 160, MPV 10.6, Immature Gran % (Auto) 0.500, Neut % (Auto) 76.2 H, Lymph % (Auto) 12.3 L, [place] % (Auto) 9.1, Eos % (Auto) 1.4, Baso % (Auto) 0.5, Absolute Neuts (auto) 4.3, Absolute Lymphs (auto) 0.70 L, Nucleated RBC % 0 01/19/22 05:50: Sodium 139, Potassium 4.4, Chloride 108 H, Carbon Dioxide 25.0, Anion Gap 6, BUN 15, Creatinine 1.01, Estim Creat Clear Calc 41.83, Est GFR (MDRD) Af Amer 67, Est GFR (MDRD) Non-Af 56 L, BUN/Creatinine Ratio 14.9, Glucose 108 H, Calcium 8.6 Radiography Diagnostic Testing: Radiology Impression Hip/Pelvis X-Ray 01/18/22 14:20 IMPRESSION: Nondisplaced fractures involving the left superior and inferior pubic rami. Calcified fibroid uterus. Electronically Signed: Von Branham MD at 14:39 EST , Meaningful Use Info Meaningful Use Diagnoses (Choose all that apply): None applicable Discharge Plan Admission Admit Date/Time: 01/18/22 15:07 Primary Reason for Your Visit: Left superior and inferior pubic ramus fracture Attending Provider: Triny Justice Primary Care Provider: Levon White Consulting Providers: Letha Pelletier Discharge Orders/Prescriptions Prescriptions: New oxycodone 5 mg Tablet 5 mg PO Q4H PRN PRN (Reason: Pain Score 4-10) 1 Days Qty: 6 0RF enoxaparin 40 mg/0.4 mL Syringe 40 mg subcut DAILY Qty: 0 0RF Continued aspirin 81 MG tablet 81 mg PO DAILY nystatin 100,000 unit/gram powder 1 applic topical DAILY PRN (Reason: SKIN UNDER BREASTS) sulfamethoxazole-trimethoprim [Bactrim DS] 800-160 mg tablet 1 tab PO Q12H metoprolol tartrate 25 mg tablet 25 mg PO BID montelukast 10 mg tablet 10 mg PO QHS Qty: 90 3RF Referrals / Follow Up: Levon White MD [Primary Care Provider] - Within 1 Month Disposition Disposition (needs filled in before D/C Order can be placed): Residential Facility Charges/Coding Visit Charges Inpatient E&M: 51063 Disch Hosp
--- NOTE | 2022-01-19 10:56 | PCM.TXEXTCAR ---
Diet Diet Order/Speech Therapy: 01/18/22 16:33 Diet: Cardiac - Heart Healthy Food consistency:: Regular Liquid Consistency:: Regular/Thin Is pt able to select menu?: Yes Routine Orders/Code Status Suppository Frequency: Daily PRN O2 Frequency: PRN Keep PO Greater than or Equal to (%): 92 Routine Lab Work: CBC (1 week) and BMP (1 week) Code Status: Full Code Suggestions for Active Care Change Position every (hours): 2 Therapies Weight Bearing: Weight bearing as tolerated Extremity Affected:: Left Lower Physical Therapy: Eval and Treat Occupational Therapy: Eval and Treat Problem/Diagnosis (1) Fracture, pelvis closed: Status: Acute Code(s): S32.9XXA - Fracture of unspecified parts of lumbosacral spine and pelvis, initial encounter for closed fracture (2) UTI (urinary tract infection): Status: Acute Code(s): N39.0 - Urinary tract infection, site not specified (3) Frequent falls: Status: Acute Code(s): R29.6 - Repeated falls Allergies/Procedures Done in Hospital Allergies amoxicillin Allergy (Verified 01/18/22 13:43) Rash cefdinir Allergy (Verified 01/18/22 13:43) Rash clavulanic acid [From Augmentin] Allergy (Verified 01/18/22 13:43) Rash heparin Allergy (Verified 01/18/22 13:43) Rash levofloxacin [From Levaquin] Allergy (Verified 01/18/22 13:43) Rash antibiotic Allergy (Uncoded 01/14/22 09:34) rash Antibiotic for cellulitis Procedures: None Type of Care/Length of Stay Estimated LOS: Convalescent Care Less Than 30 days Type of Care Needed: Skilled Rehab Potential: Good Prognosis: Fair Additional Orders/Day of Discharge Day of Discharge: 01/19/22 Discharge Plan Admission Admit Date/Time: 01/18/22 15:07 Primary Reason for Your Visit: Left superior and inferior pubic ramus fracture Attending Provider: Triny Justice Primary Care Provider: Levon White Consulting Providers: Letha Pelletier Discharge Orders/Prescriptions Prescriptions: New oxycodone 5 mg Tablet 5 mg PO Q4H PRN PRN (Reason: Pain Score 4-10) 1 Days Qty: 6 0RF enoxaparin 40 mg/0.4 mL Syringe 40 mg subcut DAILY Qty: 0 0RF Continued aspirin 81 MG tablet 81 mg PO DAILY nystatin 100,000 unit/gram powder 1 applic topical DAILY PRN (Reason: SKIN UNDER BREASTS) sulfamethoxazole-trimethoprim [Bactrim DS] 800-160 mg tablet 1 tab PO Q12H metoprolol tartrate 25 mg tablet 25 mg PO BID montelukast 10 mg tablet 10 mg PO QHS Qty: 90 3RF Referrals / Follow Up: Levon White MD [Primary Care Provider] - Within 1 Month Disposition Disposition (needs filled in before D/C Order can be placed): [facility]
--- NOTE | 2022-01-19 11:39 | CASEMGMT ---
Social Work SW in to patient room to inform of acceptance at TCU. Pt's daughter present. Both voiced understanding that pt would be discharged and transfered to TCU today. Pt's daughter reported willing to inform pt's son, Javier of plan. PLAN: TCU [facility]
[2022-01-19] MEDS: oxyCODONE 5 MG Tablet PO (13:06)
== END 2022-01-19 14:25 | disposition skilled nursing facility (03) | DRG 536 ==
LOC: ED 14:50 → MS3 15:15
PROVIDERS: Admitting Provider Student in an Organized Health Care Education/Training Program; Emergency Provider Emergency Medicine; PCP Internal Medicine; Visit Provider Internal Medicine
DX: S32.512A Fracture of superior rim of left pubis, initial encounter for closed fracture (principal); N39.0 Urinary tract infection, site not specified; I27.21 Secondary pulmonary arterial hypertension; I48.0 Paroxysmal atrial fibrillation; I10 Essential (primary) hypertension; G31.84 Mild cognitive impairment of uncertain or unknown etiology; D25.9 Leiomyoma of uterus, unspecified; J44.9 Chronic obstructive pulmonary disease, unspecified; S32.592A Other specified fracture of left pubis, initial encounter for closed fracture; W19.XXXA Unspecified fall, initial encounter; Y93.89 Activity, other specified; Z79.82 Long term (current) use of aspirin; R53.81 Other malaise; Z79.899 Other long term (current) drug therapy; Y92.9 Unspecified place or not applicable
CPT/HCPCS: 36415; 73502; 80048; 80053; 85025; 87426; 97162; 97166; 99285; J7030; J2405

== ENCOUNTER 2022-01-19 14:36 | Inpatient (IN) | payer MEDICARE, OTHER, SELFPAY ==
[2022-01-19 14:44] VITALS: BP 154/72; PULSE 71; RESP 16; TEMP 36.6; O2SAT 92; BMI 21.9
[2022-01-19 17:15] VITALS: BP 154/72; PULSE 85
[2022-01-19] MEDS: Metoprolol Tartrate 25 MG Tablet PO (17:15)
--- NOTE | 2022-01-19 19:35 | HP.PCM_ITS ---
HPI - General General Date of Admission: 01/19/22 Date of Service: 01/19/22 Chief Complaint: Here for rehabilitation. HPI Narrative 01/18/2022 ANDREAS MARROQUIN, is a 86 Female who presents to [facility] Emergency Department with lower extremity injury. Left hip pain after fall, able to bear weight, but painful. Patient has frequent falls. On Bactrim for urinary tract infection. X-ray shows left pelvic fracture. Morphine given. 01/18/2022 Admit to Hospital. PT/OT for debility. Tylenol, Oxycodone, Morphine for pain. Continue Bactrim for urinary tract infection. No blood thinners for atrial fibrillation secondary to frequent falls. 01/19/2022 Admit to TCU with debility, here for rehabilitation, strengthening, prior to discharge home with family. 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 Coagulopathy Cognitive impairment Confusion COPD (chronic obstructive pulmonary disease) COVID-19 (11/16/21) Depression Dermatitis Dyspnea on exertion Elevated blood pressure reading in office with white coat syndrome, without diagnosis of hypertension Essential (primary) hypertension Essential hypertension Fall Fatigue Fracture, rib Hypertension after donor nephrectomy requiring medication Intertriginous dermatitis associated with moisture Localized swelling of left lower extremity Lung nodule seen on imaging study Obesity Osteoporosis Paroxysmal atrial fibrillation Pulmonary hypertension Recurrent UTI Secondary pulmonary arterial hypertension Shortness of breath Traumatic hematoma of right elbow Traumatic hematoma of right upper arm Home Medications aspirin 81 mg tablet,delayed release 81 mg PO DAILY [facility] 04/12/18 [History Last Taken 01/18/22] nystatin 100,000 unit/gram topical powder 1 applic topical DAILY PRN SKIN UNDER BREASTS 12/06/21 [History Last Taken 01/18/22] montelukast 10 mg tablet 10 mg PO QHS ALLERGIES #90 tabs 01/11/22 [Rx Last Taken 01/17/22] metoprolol tartrate 25 mg tablet 25 mg PO BID BLOOD PRESSURE 01/18/22 [History Last Taken 01/18/22] sulfamethoxazole 800 mg-trimethoprim 160 mg tablet (Bactrim DS) 1 tab PO Q12H ANTIBIOTIC 01/18/22 [History Last Taken 01/18/22] enoxaparin 40 mg/0.4 mL subcutaneous syringe 40 mg subcut DAILY Anticoagulant 01/19/22 [History Last Taken Unknown] oxycodone 5 mg tablet 5 mg PO Q4H PRN PRN Pain Score 4-10 1 day #6 tabs 01/19/22 [Rx Last Taken Unknown] Allergy/AdvReac Type Severity Reaction Status Date / Time amoxicillin Allergy Rash Verified 01/18/22 13:43 cefdinir Allergy Rash Verified 01/18/22 13:43 clavulanic acid Allergy Rash Verified 01/18/22 13:43 [From Augmentin] heparin Allergy Rash Verified 01/18/22 13:43 levofloxacin [From Levaquin] Allergy Rash Verified 01/18/22 13:43 antibiotic Allergy rash Uncoded 01/14/22 09:34 Family History Father Cancer Mother Hypertension Dementia Surgical History H/O basal cell carcinoma excision History of vein stripping Social History (Updated 01/19/22 @ 19:[address] Remy Champagne MD) household members: family and other details: Lives with son. Smoking Status: Never smoker alcohol intake: never substance use type: does not use ROS Constitutional Constitutional: Denies chills, fever(s) or weight gain ENT HEENT: Denies headache(s), nasal congestion or nasal discharge Cardiovascular Cardiovascular: Denies chest pain or palpitations Respiratory/Chest Respiratory/Chest: Denies cough, excessive phlegm production or shortness of breath with exertion Gastrointestinal Gastrointestinal: Denies abdominal pain, nausea or vomiting Genitourinary Genitourinary: Denies dysuria Musculoskeletal Musculoskeletal: Denies joint pain or joint swelling Integumentary Integumentary: Denies rash or wounds Neurologic Neurologic: Denies focal weakness, numbness or tingling Psychiatric Psychiatric: Denies anxiety, auditory hallucinations, depression, homicidal ideation or suicidal ideation Vital Signs Vital Signs Vital Signs: 01/19/22 14:44 01/19/22 14:44 01/19/22 17:15 Temperature 97.9 F Temperature Source Temporal Pulse Rate 71 85 Pulse Rhythm Irregular Pulse Strength Normal (2+) Respiratory Rate 16 Respiratory Effort Normal Non-Labored Respiratory Depth Normal Respiratory Pattern Normal Blood Pressure 154/72 H 154/72 H Blood Pressure Mean 99 Blood Pressure Source Monitor Blood Pressure Position Semi-Fowlers Blood Pressure Location Right Arm Pulse Ox 92 92 Oxygen Delivery Method Room Air Room Air Weight Weight: 65.8 kg Body Mass Index (BMI) 21.9 Physical Exam Const alert General Appearance: cooperative HEENT normocephalic Eyes PERRL and EOMs intact bilaterally Neck supple, no JVD and no carotid bruits Resp normal respiratory effort, normal air movement and clear to auscultation bilaterally Cardio regular rate and regular rhythm GI normal to inspection, nondistended, normoactive bowel sounds, non-tender and non-distended Extremity normal capillary refill General Extremity: Negative for edema Skin no rashes or lesions noted General Skin Exam: no breakdown Psych affect normal Appearance: appropriate Assessment & Plan Assessment/Plan (1) Debility: (2) Frequent falls: (3) Fracture, pelvis closed: (4) UTI (urinary tract infection): (5) Essential hypertension: (6) Paroxysmal atrial fibrillation: (7) Allergic rhinitis: PLAN: Plan 86 year old female with below past medical history hospitalized for left pelvis fracture, complicated by urinary tract infection, admitted to TCU with debility, here for rehabilitation, strengthening, prior to discharge home with family. * Debility - PT/OT. * Pain - Tylenol 1000mg q8, Tramadol 50mg q6h prn pain (1-5), Oxycodone 5mg q4h prn pain (6-10). * Bowel - Miralax 17gm daily, senna/colace 2 tablets bid, MOM 30ml po x 1 dose, then daily prn. * Adult immunization - Administer pneumonia vaccine, covid19 vaccine, flu vaccine as appropriate. * DVT prophylaxis - Lovenox 40mg sc daily. * Atrial fibrillation - Metoprolol 25mg bid, aspirin 81mg daily, no anticoagulation due to frequent falls. * Allergic rhinitis - Singulair 10mg daily. * Tinea Corporis - Nystatin powder topical daily prn. * Urinary tract infection - Bactrim DS 1 tablet q12 thru 01/20/2022.
[2022-01-19] MEDS: Acetaminophen 500 MG Tablet 1000 MG PO (20:23)
[2022-01-19] MEDS: Senna/Docusate Sodium 1 Tablet 2 TABLET PO (20:23)
[2022-01-19] MEDS: Montelukast 10 MG Tablet PO (20:24)
[2022-01-19] MEDS: Magnesium Hydroxide 30 ML UDC PO (20:24)
[2022-01-20 05:02] LABS: Absolute Lymphocyte Count 1.02 X10^3/uL (0.83-4.51); Absolute Neutrophil Count 2.5 X10^3/uL (2.0-7.7); Basophil# 0.03 X10^3/uL; Basophil% 0.7 % (0-1); Eosinophil# 0.19 X10^3/uL; Eosinophils% 4.5 % (0-5); Hematocrit 30.2 % (37-47); Hemoglobin 9.5 g/dL (12.0-15.0); Lymphocyte # 1.02 X10^3/ul (0.83-4.51); Lymphocyte % 24.3 % (19-41); Mean Corp Hgb Conc 31.5 g/dL (32-36); Mean Corpuscular Hgb 29.5 pg (27.0-32.0); Mean Corpuscular Volume 93.8 fL (81-99); Mean Platelet Vol. 10.4 fl (6.2-12.0); Monocyte# 0.41 X10^3/uL; Monocyte% 9.8 % (0-10); NRBC Flagged by Analyzer 0 % (0-5); Neutrophil # 2.53 X10^3/uL (2.7-7.7); Neutrophil % 60.2 % (47-70); Platelet Count 130 K/mm3 (150-450); RBC Distribution Width CV 13.7 % (11.6-14.6); RBC Distribution Width SD 46.5 fl (35.1-43.9); Red Blood Count 3.22 M/mm3 (4.2-5.4); White Blood Count 4.2 K/mm3 (4.4-11.0)
[2022-01-20 05:43] LABS: Anion Gap 7 (5-15); BUN 17 mg/dL (7-18); BUN/Creat Ratio 17.4 RATIO (10-20); Calcium,Total 8.2 mg/dL (8.5-10.1); Chloride 109 mmol/L (98-107); Creatinine, Serum 0.98 mg/dL (0.55-1.02); EST Glomerular Filtration Rate 58 mL/min (>60); Est Glom Filt Rate - Afr Amer 70 mL/min (>60); Estimated Creatinine Clearance 43.11 ml/min; Glucose 92 mg/dL (74-106); Potassium 4.3 mmol/L (3.5-5.1); Sodium Level 139 mmol/L (136-145)
[2022-01-20] MEDS: Enoxaparin 40 MG/0.4 ML Syringe SC (05:45)
[2022-01-20] MEDS: Polyethylene Glycol 3350 17 GM PACKET PO (05:45)
[2022-01-20 05:46] VITALS: BP 150/76; PULSE 86
[2022-01-20] MEDS: Acetaminophen 500 MG Tablet 1000 MG PO ×3 (05:46→21:18)
[2022-01-20] MEDS: Metoprolol Tartrate 25 MG Tablet PO ×2 (05:46→17:27)
[2022-01-20] MEDS: Senna/Docusate Sodium 1 Tablet 2 TABLET PO ×2 (05:47→17:28)
[2022-01-20 05:49] VITALS: BP 150/76; PULSE 86; RESP 18; TEMP 36.6; O2SAT 93
[2022-01-20] MEDS: Smz/Tmp Ds Tablet 1 TABLET PO ×2 (08:40→19:38)
[2022-01-20] MEDS: Aspirin E.C. 81 MG Tablet PO (08:40)
[2022-01-20] MEDS: Tuberculin,Purif.prot.deriv. 50 TU/ML Vial 0.1 ML ID (10:51)
[2022-01-20] MEDS: FLU VACC QS2022-23(6MOS UP)/PF 60 MCG/0.5 ML SYRINGE IM (10:52)
[2022-01-20] MEDS: oxyCODONE 5 MG Tablet PO ×2 (11:01→16:26)
[2022-01-20 15:00] VITALS: BP 128/64; PULSE 79; RESP 18; TEMP 36.6; O2SAT 93
[2022-01-20 17:27] VITALS: BP 128/64; PULSE 79
--- NOTE | 2022-01-20 18:06 | NURSING ---
pt son at bedside frustrated with staff due to flu vaccine administration. this tennis ball coverer hand with patient entire shift and has been alert and oriented throughout shift. prior to administration to flu vaccine this am pt remained agreeable to flu vaccine x2.
[2022-01-20 19:53] VITALS: PULSE 74; RESP 16; O2SAT 92
[2022-01-20] MEDS: Montelukast 10 MG Tablet PO (21:19)
[2022-01-21 04:50] VITALS: BP 140/68; PULSE 81
[2022-01-21] MEDS: Metoprolol Tartrate 25 MG Tablet PO ×2 (04:50→17:35)
[2022-01-21] MEDS: Enoxaparin 40 MG/0.4 ML Syringe SC (04:50)
[2022-01-21] MEDS: Magnesium Hydroxide 30 ML UDC PO (04:50)
[2022-01-21] MEDS: Acetaminophen 500 MG Tablet 1000 MG PO ×3 (04:50→21:52)
[2022-01-21] MEDS: Polyethylene Glycol 3350 17 GM PACKET PO (04:50)
[2022-01-21] MEDS: Senna/Docusate Sodium 1 Tablet 2 TABLET PO ×2 (04:52→17:35)
[2022-01-21] MEDS: Aspirin E.C. 81 MG Tablet PO (08:09)
[2022-01-21 09:40] VITALS: O2SAT 92
--- NOTE | 2022-01-21 10:23 | NURSING ---
Landscaping And Groundskeeping Laborer Note; Activity Asset: Complete
--- NOTE | 2022-01-21 10:43 | PCM.PN.DRR ---
TCU RX Drug Regimen Review Subjective: 86 YOF admitted to TCU s/p hospitalization for a fall and pelvic fracture. Admitted to TCU for rehabilitation and strengthening prior to discharge home with family members. Objective: Allergies amoxicillin Allergy (Verified 01/18/22 13:43) Rash cefdinir Allergy (Verified 01/18/22 13:43) Rash clavulanic acid [From Augmentin] Allergy (Verified 01/18/22 13:43) Rash heparin Allergy (Verified 01/18/22 13:43) Rash levofloxacin [From Levaquin] Allergy (Verified 01/18/22 13:43) Rash antibiotic Allergy (Uncoded 01/14/22 09:34) rash Antibiotic for cellulitis Current Medications Generic Name Dose Route Start Last Admin Trade Name Freq PRN Reason Stop Dose Admin Acetaminophen 1,000 mg 01/19/22 22:00 01/21/22 04:50 Acetaminophen 500 Mg Tablet PO 1,000 mg Q8 GINNY Administration Aspirin 81 mg 01/20/22 08:00 01/21/22 08:09 Aspirin E.C. 81 Mg Tablet PO 81 mg DAILYCM GINNY Administration Enoxaparin Sodium 40 mg 01/20/22 06:00 01/21/22 04:50 Enoxaparin 40 Mg/0.4 Ml Syringe SC 40 mg DAILY GINNY Administration Magnesium Hydroxide 30 ml 01/19/22 19:47 01/21/22 04:50 Magnesium Hydroxide 30 Ml Udc PO 30 ml DAILY PRN Administration CONSTIPATION Metoprolol Tartrate 25 mg 01/19/22 18:00 01/21/22 04:50 Metoprolol Tartrate 25 Mg Tablet PO 25 mg BID GINNY Administration Montelukast Sodium 10 mg 01/19/22 22:00 01/20/22 21:19 Montelukast 10 Mg Tablet PO 10 mg QHS GINNY Administration Nystatin 1 applic 01/19/22 15:27 Nystatin Powder 15gm Bottle TOPICAL DAILY PRN SKIN IRRITATION Protocol Oxycodone HCl 5 mg 01/19/22 19:45 01/20/22 16:26 Oxycodone 5 Mg Tablet PO 5 mg Q4H PRN PRN Administration Pain Score 6-10 Polyethylene Glycol 17 gm 01/20/22 06:00 01/21/22 04:50 Polyethylene Glycol 3350 17 Gm Packet PO 17 gm DAILY GINNY Administration Senna/Docusate Sodium 2 tablet 01/19/22 20:00 01/21/22 04:52 Senna/Docusate Sodium 1 Tablet PO 2 tablet BID GINNY Administration Tramadol HCl 50 mg 01/19/22 19:45 Tramadol 50 Mg Tablet PO Q6H PRN PRN Pain Score 1-5 Tuberculin PPD 0.1 ml 01/27/22 10:00 Tuberculin,Purif.Prot.Deriv. 50 Tu/Ml Vial ID 01/27/22 10:01 X1 ONE Problem List (Last Reviewed 01/19/22 @ 19:[address] Remy Champagne MD) Allergic rhinitis (Acute) Debility (Acute) Fracture, pelvis closed (Acute) UTI (urinary tract infection) (Acute) Frequent falls (Acute) Paroxysmal atrial fibrillation (Chronic) Essential hypertension (Chronic) Vital Signs Temp Pulse Resp BP Pulse Ox O2 Del Method 97.8 F 81 16 140/68 H 92 Room Air 01/20/22 15:00 01/21/22 04:50 01/20/22 19:53 01/21/22 04:50 01/21/22 09:40 01/21/22 09:40 Oxygen Delivery Method Room Air Weight: 65.8 kg Body Mass Index (BMI) 21.9 Sodium 139 mmol/L (136-145) 01/20/22 04:34 Potassium 4.3 mmol/L (3.5-5.1) 01/20/22 04:34 Chloride 109 mmol/L (98-107) H 01/20/22 04:34 Carbon Dioxide 23.0 mmol/L (21.0-32.0) 01/20/22 04:34 Anion Gap 7 (5-15) 01/20/22 04:34 BUN 17 mg/dL (7-18) 01/20/22 04:34 Creatinine 0.98 mg/dL (0.55-1.02) 01/20/22 04:34 Est GFR (MDRD) Af Amer 70 mL/min (>60) 01/20/22 04:34 Est GFR (MDRD) Non-Af 58 mL/min (>60) L 01/20/22 04:34 BUN/Creatinine Ratio 17.4 RATIO (10-20) 01/20/22 04:34 Glucose 92 mg/dL (74-106) 01/20/22 04:34 Assessment/Plan: 1. Pain: Tylenol 1000mg PO Q8. Tramadol 50mg PO Q6h PRN Pain 1-5, Oxycodone 5mg PO Q4h PRN Pain 6-10. Please continue to monitor for S/S increased/decreased pain, PRN medication usage, oversedation/ respiratory depression with narcotic use, constipation. - To date, the patient has utilized 2 doses of oxycodone and zero doses of tramadol. Pre-medication pain rated 6/10 and post-medication pain rated 0/10. It appears that the patient's pain is well controlled at this time. Will continue to monitor. 2. Atrial Fibrillation: Lopressor 25mg PO BID, Aspirin 81mg PO Daily. Please continue to monitor for S/S bleeding/bruising, Hgb (9.5 on 01/20), HCt (30.2 on 01/20), Blood pressure (range 128-154/64-76), pulse (range 71-86). The patient is not currently being anticoagulated. Per H/P review, pt has history of frequent falls and is not on anticoagulation for this reason. 3. Allergic Rhinitis: Singulair 10mg PO Daily. Please continue to monitor for medication effectiveness. 4. DVT Prophylaxis: Lovenox 40mg SC Daily. Please continue to monitor for S/S bleeding/bruising, CrCl (est 43 mL/min on 01/20), S/S clotting. 5. Skin Integrity: Nystatin Powder topically Daily PRN. Please continue to monitor for PRN medication use, skin irritation, development of skin infection. 6. Bowel: Miralax 17g PO Daily, Senna/Docusate 2 tab PO BID, MOM 30mL PO Daily PRN. Please continue to monitor for increased/decreased constipation and/or diarrhea. - Per EMR review. the patient has not yet produced a bowel movement. Please continue to monitor. The patient had MOM administered this morning, continue to monitor. Assessment/Plan for indications treated with psychotropic medications: The patient is not being maintained on any psychotropic medications at the time of medication review. Medical chart and medication regimen reviewed. The following medication irregularities or issues were identified: No irregularities have been identified at time of review. Date of Note:: 01/21/22
[2022-01-21] MEDS: Ensure Plus High Protein 120 ML LIQUID PO ×3 (11:56→21:49)
[2022-01-21] MEDS: oxyCODONE 5 MG Tablet PO ×2 (12:52→17:32)
[2022-01-21 14:17] VITALS: BP 145/61; PULSE 86; RESP 14; TEMP 36.6; O2SAT 92
--- NOTE | 2022-01-21 14:40 | CASEMGMT ---
Social Work Met with patient to complete initial assessment. Pt known to this worker from previous stay. Confirmed no changes to MOLST or full code, code status. Educated to Medicare benefit. Pts goal is to return home living with son. However, the house is a split-level. SW to continue to follow for DC planning. Misty Choudhary, GISELE ROUTE CONTRACTOR
[2022-01-21 17:35] VITALS: BP 145/61; PULSE 86
--- NOTE | 2022-01-21 21:10 | NURSING ---
MARKETING DATABASE COORDINATOR reports that when a family member left this evening they informed the grade recorder that the had assisted pt into bed. Education will need to be given to family about not transferring pt w/o approval from PT.
[2022-01-21] MEDS: Montelukast 10 MG Tablet PO (21:52)
--- NOTE | 2022-01-21 22:37 | NURSING ---
Pt c/o nausea earlier in shift. Small emesis noted campbell/clear in color. Voices she felt better afterward. No more c/o.
[2022-01-22] MEDS: Ensure Plus High Protein 120 ML LIQUID PO ×3 (05:29→17:06)
[2022-01-22] MEDS: Polyethylene Glycol 3350 17 GM PACKET PO (05:30)
[2022-01-22 05:31] VITALS: BP 148/74; PULSE 82
[2022-01-22] MEDS: Metoprolol Tartrate 25 MG Tablet PO ×2 (05:31→17:04)
[2022-01-22] MEDS: Enoxaparin 40 MG/0.4 ML Syringe SC (05:31)
[2022-01-22] MEDS: Senna/Docusate Sodium 1 Tablet 2 TABLET PO (05:32)
[2022-01-22] MEDS: Acetaminophen 500 MG Tablet 1000 MG PO ×3 (05:32→22:02)
[2022-01-22] MEDS: Aspirin E.C. 81 MG Tablet PO (08:09)
[2022-01-22 14:00] VITALS: BP 154/75; PULSE 97; RESP 16; TEMP 36.8; O2SAT 93
[2022-01-22 14:20] VITALS: RESP 16
[2022-01-22] MEDS: traMADol 50 MG Tablet PO (16:23)
[2022-01-22 17:03] VITALS: BP 169/78; PULSE 86
[2022-01-22 17:04] VITALS: PULSE 86
[2022-01-22] MEDS: Montelukast 10 MG Tablet PO (22:02)
[2022-01-22] MEDS: oxyCODONE 5 MG Tablet PO (22:33)
[2022-01-23] MEDS: Senna/Docusate Sodium 1 Tablet 2 TABLET PO (06:15)
[2022-01-23] MEDS: Polyethylene Glycol 3350 17 GM PACKET PO (06:15)
[2022-01-23 06:16] VITALS: BP 153/59; PULSE 77
[2022-01-23] MEDS: Acetaminophen 500 MG Tablet 1000 MG PO ×3 (06:16→21:25)
[2022-01-23] MEDS: Enoxaparin 40 MG/0.4 ML Syringe SC (06:16)
[2022-01-23] MEDS: Metoprolol Tartrate 25 MG Tablet PO ×2 (06:16→17:34)
[2022-01-23] MEDS: Ensure Plus High Protein 120 ML LIQUID PO ×4 (06:25→21:26)
[2022-01-23] MEDS: Aspirin E.C. 81 MG Tablet PO (08:31)
[2022-01-23 14:47] VITALS: BP 157/65; PULSE 106; RESP 20; TEMP 36.7; O2SAT 96
[2022-01-23] MEDS: oxyCODONE 5 MG Tablet PO (14:57)
[2022-01-23 17:34] VITALS: BP 157/65; PULSE 106
[2022-01-23] MEDS: Montelukast 10 MG Tablet PO (21:26)
[2022-01-24] MEDS: Polyethylene Glycol 3350 17 GM PACKET PO (05:15)
[2022-01-24] MEDS: Enoxaparin 40 MG/0.4 ML Syringe SC (05:16)
[2022-01-24] MEDS: Senna/Docusate Sodium 1 Tablet 2 TABLET PO ×2 (05:16→17:00)
[2022-01-24 05:17] VITALS: BP 148/64; PULSE 81
[2022-01-24] MEDS: Metoprolol Tartrate 25 MG Tablet PO ×2 (05:17→17:00)
[2022-01-24] MEDS: Acetaminophen 500 MG Tablet 1000 MG PO ×3 (05:18→20:37)
[2022-01-24] MEDS: Ensure Plus High Protein 120 ML LIQUID PO ×4 (05:21→20:36)
[2022-01-24] MEDS: Aspirin E.C. 81 MG Tablet PO (07:51)
[2022-01-24 10:00] VITALS: PULSE 79; RESP 16; O2SAT 94
[2022-01-24] MEDS: oxyCODONE 5 MG Tablet PO ×2 (10:27→20:41)
--- NOTE | 2022-01-24 11:14 | NURSING ---
Educated resident on the COVID 19 vaccine. She stated she wanted to receive it. There had been a past issue with her son regarding the Flu Vaccine. I told him that his mother was interested in getting the COVID 19 Vaccine. He stated absolutely not. I asked him to speak with his mother, to see her feelings on it. Will hold off until they have had a chance to discuss this.
[2022-01-24 13:48] VITALS: BP 159/78; PULSE 105; RESP 18; TEMP 36.4; O2SAT 97
[2022-01-24 17:00] VITALS: BP 162/69; PULSE 87
[2022-01-24] MEDS: Montelukast 10 MG Tablet PO (20:36)
[2022-01-25] MEDS: Ensure Plus High Protein 120 ML LIQUID PO ×4 (05:15→21:05)
[2022-01-25] MEDS: Polyethylene Glycol 3350 17 GM PACKET PO (05:15)
[2022-01-25] MEDS: Acetaminophen 500 MG Tablet 1000 MG PO ×3 (05:15→21:04)
[2022-01-25 05:16] VITALS: BP 153/73; PULSE 91
[2022-01-25] MEDS: Senna/Docusate Sodium 1 Tablet 2 TABLET PO ×2 (05:16→17:07)
[2022-01-25] MEDS: Metoprolol Tartrate 25 MG Tablet PO ×2 (05:16→17:07)
[2022-01-25] MEDS: Enoxaparin 40 MG/0.4 ML Syringe SC (05:16)
[2022-01-25] MEDS: Aspirin E.C. 81 MG Tablet PO (08:29)
[2022-01-25 11:25] VITALS: PULSE 82; RESP 18; O2SAT 93
[2022-01-25] MEDS: oxyCODONE 5 MG Tablet PO (12:48)
[2022-01-25 14:46] VITALS: BP 145/71; PULSE 105; RESP 18; TEMP 36.2; O2SAT 96
--- NOTE | 2022-01-25 16:16 | CASEMGMT ---
Social Work BIMS () and PHQ-9 (06/30) completed for MDS assessment. Misty Choudhary MSW FREIGHT CLERK
[2022-01-25 17:07] VITALS: PULSE 105
[2022-01-25] MEDS: Montelukast 10 MG Tablet PO (21:05)
[2022-01-26 05:47] VITALS: BP 156/68; PULSE 87
[2022-01-26] MEDS: Enoxaparin 40 MG/0.4 ML Syringe SC (05:47)
[2022-01-26] MEDS: Metoprolol Tartrate 25 MG Tablet PO ×2 (05:47→17:19)
[2022-01-26] MEDS: Acetaminophen 500 MG Tablet 1000 MG PO ×3 (05:47→21:20)
[2022-01-26] MEDS: Senna/Docusate Sodium 1 Tablet 2 TABLET PO (05:48)
[2022-01-26] MEDS: Ensure Plus High Protein 120 ML LIQUID PO ×4 (05:48→21:20)
[2022-01-26] MEDS: Polyethylene Glycol 3350 17 GM PACKET PO (05:48)
[2022-01-26] MEDS: Aspirin E.C. 81 MG Tablet PO (07:33)
--- NOTE | 2022-01-26 08:24 | NURSING ---
Sap Pi Architect Note; MDS Complete
[2022-01-26] MEDS: oxyCODONE 5 MG Tablet PO ×2 (09:56→14:30)
--- NOTE | 2022-01-26 15:29 | CHAPLAIN ---
Type of Pastoral Visit ___ Initial Visit _x__ Follow-up Visit ___ On-call Visit ___ General Patient Visit ___ Spiritual Assessment ___ Family Conference ___ Bereavement ___ Rapid Response ___ Code Blue ___ Other (describe below) Pastoral Care Referral From _x__ Patient ___ Family ___ Nurse ___ Physician ___ Senior Market Research Analyst ___ Manager Underwriting ___ Other (describe below) Sacrament/Intervention _x__ Active listening ___ Anointing ___ Mormon ___ Bereavement ___ Communion ___ Raissa exploration ___ ___ Life review _x__ Prayer ___ Reconciliation ___ Sacrament of Sick _x__ Supportive presence ___ Wedding ___ Other (describe below) Pastoral Comments patient met before when an in patient; pt gives review of status; pt is eating a late lunch and she is encouraged to eat; pt welcomes the company and states it gets boring in here; pt focuses on food and offers some to this microfilm clerk which is declined; prayer is welcomed; let pt finish her meal
[2022-01-26 16:00] VITALS: BP 138/76; PULSE 95; RESP 18; TEMP 36.5; O2SAT 94
[2022-01-26 17:19] VITALS: BP 138/76; PULSE 95
[2022-01-26] MEDS: Montelukast 10 MG Tablet PO (21:21)
[2022-01-26 23:13] VITALS: PULSE 76; RESP 16; O2SAT 96
[2022-01-27 06:12] LABS: Absolute Lymphocyte Count 1.59 X10^3/uL (0.83-4.51); Absolute Neutrophil Count 2.4 X10^3/uL (2.0-7.7); Basophil# 0.02 X10^3/uL; Basophil% 0.4 % (0-1); Eosinophil# 0.17 X10^3/uL; Eosinophils% 3.6 % (0-5); Hematocrit 31.9 % (37-47); Hemoglobin 9.8 g/dL (12.0-15.0); Lymphocyte # 1.59 X10^3/ul (0.83-4.51); Lymphocyte % 33.7 % (19-41); Mean Corp Hgb Conc 30.7 g/dL (32-36); Mean Corpuscular Hgb 29.6 pg (27.0-32.0); Mean Corpuscular Volume 96.4 fL (81-99); Mean Platelet Vol. 9.3 fl (6.2-12.0); Monocyte# 0.48 X10^3/uL; Monocyte% 10.2 % (0-10); NRBC Flagged by Analyzer 0 % (0-5); Neutrophil # 2.42 X10^3/uL (2.7-7.7); Neutrophil % 51.3 % (47-70); Platelet Count 235 K/mm3 (150-450); RBC Distribution Width CV 14.2 % (11.6-14.6); RBC Distribution Width SD 48.9 fl (35.1-43.9); Red Blood Count 3.31 M/mm3 (4.2-5.4); White Blood Count 4.7 K/mm3 (4.4-11.0)
[2022-01-27 06:29] LABS: Anion Gap 4 (5-15); BUN 27 mg/dL (7-18); BUN/Creat Ratio 35.5 RATIO (10-20); Calcium,Total 8.7 mg/dL (8.5-10.1); Chloride 109 mmol/L (98-107); Creatinine, Serum 0.76 mg/dL (0.55-1.02); EST Glomerular Filtration Rate 77 mL/min (>60); Est Glom Filt Rate - Afr Amer 93 mL/min (>60); Estimated Creatinine Clearance 42.25 ml/min; Glucose 103 mg/dL (74-106); Potassium 4.5 mmol/L (3.5-5.1); Sodium Level 141 mmol/L (136-145)
[2022-01-27] MEDS: Senna/Docusate Sodium 1 Tablet 2 TABLET PO ×2 (06:36→17:10)
[2022-01-27 06:37] VITALS: BP 162/70; PULSE 85
[2022-01-27] MEDS: Acetaminophen 500 MG Tablet 1000 MG PO ×3 (06:37→20:19)
[2022-01-27] MEDS: Metoprolol Tartrate 25 MG Tablet PO ×2 (06:37→17:09)
[2022-01-27] MEDS: Polyethylene Glycol 3350 17 GM PACKET PO (06:38)
[2022-01-27] MEDS: Enoxaparin 40 MG/0.4 ML Syringe SC (06:38)
[2022-01-27] MEDS: Ensure Plus High Protein 120 ML LIQUID PO ×4 (06:42→20:19)
[2022-01-27] MEDS: Aspirin E.C. 81 MG Tablet PO (08:27)
[2022-01-27] MEDS: Tuberculin,Purif.prot.deriv. 50 TU/ML Vial 0.1 ML ID (09:47)
[2022-01-27 15:13] VITALS: BP 136/72; PULSE 104; RESP 18; TEMP 36.4; O2SAT 96
[2022-01-27 17:09] VITALS: BP 156/80; PULSE 96
[2022-01-27] MEDS: traMADol 50 MG Tablet PO (17:09)
[2022-01-27] MEDS: Montelukast 10 MG Tablet PO (20:20)
[2022-01-28] MEDS: traMADol 50 MG Tablet PO ×2 (02:41→11:06)
[2022-01-28] MEDS: Enoxaparin 40 MG/0.4 ML Syringe SC (06:06)
[2022-01-28] MEDS: Ensure Plus High Protein 120 ML LIQUID PO ×4 (06:06→21:29)
[2022-01-28] MEDS: Polyethylene Glycol 3350 17 GM PACKET PO (06:06)
[2022-01-28 06:07] VITALS: BP 147/62; PULSE 84
[2022-01-28] MEDS: Metoprolol Tartrate 25 MG Tablet PO ×2 (06:07→17:56)
[2022-01-28] MEDS: Acetaminophen 500 MG Tablet 1000 MG PO ×3 (06:07→21:30)
[2022-01-28] MEDS: Senna/Docusate Sodium 1 Tablet 2 TABLET PO ×2 (06:07→17:57)
[2022-01-28] MEDS: Aspirin E.C. 81 MG Tablet PO (08:13)
--- NOTE | 2022-01-28 11:10 | CASEMGMT ---
Social Work IDT met with patient, son and granddaughter for care plan meeting. Discussed patient's progress in PT/OT/ST/SN. Educated to Medicare benefit. Encouraged to contact secondary insurance to ensure copay coverage. Pts goal is to return home at [facility]. Offered therapy family training. SW to continue to follow to assist with DC plans and resources. Misty Choudhary, VARNISH MELTER HELPER RN POOL
[2022-01-28 12:04] LABS: Bacteria 0 SEEN /hpf (None Seen); Mucous, Urine 0 SEEN /hpf (<or=2+); Red Blood Cells-Urine 0 SEEN /hpf (0-5); White Blood Cells 0 SEEN /hpf (0-5)
[2022-01-28 12:16] LABS: Color, Urine Yellow (Yellow); Glucose, Dipstick Normal (Normal); Ketone-Dipstick Negative (Negative); Leukocyte Esterase-Dipstick Negative /ul (Negative); Nitrite-Dipstick Negative (Negative); Occult Blood-Urine Negative /ul (Negative); Protein-Dipstick Negative (Negative); Urine Bilirubin Dipstick Negative (Negative); Urine Urobilinogen Normal (Normal)
[2022-01-28 12:28] LABS: Urine Clarity Clear (Clear)
[2022-01-28 12:35] LABS: Squamous Epithelial Cells - UA 0-5 SEEN /hpf (5-10)
[2022-01-28 15:27] VITALS: BP 151/79; PULSE 79; RESP 16; TEMP 36.6; O2SAT 96
[2022-01-28 17:56] VITALS: BP 153/75; PULSE 94
[2022-01-28] MEDS: Montelukast 10 MG Tablet PO (21:31)
[2022-01-28 21:40] VITALS: PULSE 85; RESP 16; O2SAT 94
[2022-01-29 05:37] VITALS: BP 157/85; PULSE 82
[2022-01-29] MEDS: Senna/Docusate Sodium 1 Tablet 2 TABLET PO (05:37)
[2022-01-29] MEDS: Metoprolol Tartrate 25 MG Tablet PO ×2 (05:37→17:11)
[2022-01-29] MEDS: Enoxaparin 40 MG/0.4 ML Syringe SC (05:37)
[2022-01-29] MEDS: Ensure Plus High Protein 120 ML LIQUID PO ×4 (05:37→20:07)
[2022-01-29] MEDS: Polyethylene Glycol 3350 17 GM PACKET PO (05:38)
[2022-01-29] MEDS: Acetaminophen 500 MG Tablet 1000 MG PO ×3 (05:38→20:04)
[2022-01-29] MEDS: Aspirin E.C. 81 MG Tablet PO (07:48)
[2022-01-29 10:20] VITALS: PULSE 72; RESP 16; O2SAT 94
[2022-01-29] MEDS: traMADol 50 MG Tablet PO (11:22)
[2022-01-29] MEDS: oxyCODONE 5 MG Tablet PO ×2 (13:25→17:14)
[2022-01-29 15:10] VITALS: BP 160/71; PULSE 94; RESP 18; TEMP 36.7; O2SAT 93
[2022-01-29 17:11] VITALS: PULSE 94
[2022-01-29] MEDS: Montelukast 10 MG Tablet PO (20:04)
[2022-01-30] MEDS: Polyethylene Glycol 3350 17 GM PACKET PO (05:07)
[2022-01-30] MEDS: Ensure Plus High Protein 120 ML LIQUID PO ×4 (05:10→20:54)
[2022-01-30] MEDS: Enoxaparin 40 MG/0.4 ML Syringe SC (05:11)
[2022-01-30] MEDS: Acetaminophen 500 MG Tablet 1000 MG PO ×3 (05:11→20:52)
[2022-01-30] MEDS: Senna/Docusate Sodium 1 Tablet 2 TABLET PO (05:11)
[2022-01-30 05:12] VITALS: BP 152/60; PULSE 83
[2022-01-30] MEDS: Metoprolol Tartrate 25 MG Tablet PO ×2 (05:12→17:09)
[2022-01-30] MEDS: Aspirin E.C. 81 MG Tablet PO (08:15)
[2022-01-30 14:30] VITALS: BP 139/71; PULSE 94; RESP 16; TEMP 36.8; O2SAT 94
[2022-01-30 17:09] VITALS: PULSE 94
[2022-01-30 19:51] VITALS: PULSE 86; RESP 14; O2SAT 94
[2022-01-30] MEDS: Montelukast 10 MG Tablet PO (20:52)
[2022-01-31] MEDS: Enoxaparin 40 MG/0.4 ML Syringe SC (05:44)
[2022-01-31] MEDS: Polyethylene Glycol 3350 17 GM PACKET PO (05:44)
[2022-01-31] MEDS: Acetaminophen 500 MG Tablet 1000 MG PO ×3 (05:44→20:51)
[2022-01-31 05:47] VITALS: BP 150/68; PULSE 82
[2022-01-31] MEDS: Metoprolol Tartrate 25 MG Tablet PO ×2 (05:47→17:32)
[2022-01-31] MEDS: Ensure Plus High Protein 120 ML LIQUID PO ×3 (05:47→20:51)
[2022-01-31] MEDS: traMADol 50 MG Tablet PO (06:30)
[2022-01-31] MEDS: Aspirin E.C. 81 MG Tablet PO (07:57)
[2022-01-31 08:50] VITALS: PULSE 75; O2SAT 97
[2022-01-31 13:41] VITALS: BP 148/69; PULSE 92; RESP 18; TEMP 36.3; O2SAT 97
[2022-01-31] MEDS: oxyCODONE 5 MG Tablet PO (17:03)
[2022-01-31 17:32] VITALS: BP 148/69; PULSE 92
[2022-01-31] MEDS: Senna/Docusate Sodium 1 Tablet 2 TABLET PO (17:33)
[2022-01-31] MEDS: Montelukast 10 MG Tablet PO (20:52)
[2022-02-01] MEDS: Ensure Plus High Protein 120 ML LIQUID PO ×4 (05:13→21:08)
[2022-02-01] MEDS: Enoxaparin 40 MG/0.4 ML Syringe SC (05:15)
[2022-02-01] MEDS: Acetaminophen 500 MG Tablet 1000 MG PO ×3 (05:15→21:08)
[2022-02-01 05:16] VITALS: BP 152/63; PULSE 83
[2022-02-01] MEDS: Metoprolol Tartrate 25 MG Tablet PO ×2 (05:16→17:47)
[2022-02-01] MEDS: Aspirin E.C. 81 MG Tablet PO (09:51)
--- NOTE | 2022-02-01 11:15 | MDS.RN ---
Information for the mds was obtained from review of the clinical record, interview of resident, staff, and direct observation of resident's care.
[2022-02-01 12:59] VITALS: BP 158/66; PULSE 97; RESP 18; TEMP 36.1; O2SAT 94
[2022-02-01] MEDS: traMADol 50 MG Tablet PO (13:39)
[2022-02-01 17:47] VITALS: BP 142/94; PULSE 92
[2022-02-01] MEDS: Montelukast 10 MG Tablet PO (21:08)
[2022-02-01 21:17] VITALS: RESP 18
[2022-02-02] MEDS: traMADol 50 MG Tablet PO ×2 (03:12→09:38)
[2022-02-02 03:15] VITALS: BP 157/67; PULSE 78; RESP 18; TEMP 36.5; O2SAT 92
[2022-02-02 06:08] VITALS: BP 157/67; PULSE 78
[2022-02-02] MEDS: Acetaminophen 500 MG Tablet 1000 MG PO ×3 (06:08→22:34)
[2022-02-02] MEDS: Enoxaparin 40 MG/0.4 ML Syringe SC (06:08)
[2022-02-02] MEDS: Ensure Plus High Protein 120 ML LIQUID PO ×4 (06:08→22:33)
[2022-02-02] MEDS: Metoprolol Tartrate 25 MG Tablet PO ×2 (06:08→16:53)
[2022-02-02] MEDS: Aspirin E.C. 81 MG Tablet PO (07:49)
[2022-02-02 10:33] VITALS: PULSE 75; RESP 16; O2SAT 97
[2022-02-02 14:23] VITALS: BP 152/76; PULSE 76; RESP 16; TEMP 36.7; O2SAT 92
[2022-02-02 16:51] VITALS: BP 152/71; PULSE 83
[2022-02-02 16:53] VITALS: PULSE 83
[2022-02-02] MEDS: Senna/Docusate Sodium 1 Tablet 2 TABLET PO (16:53)
[2022-02-02] MEDS: Montelukast 10 MG Tablet PO (22:34)
[2022-02-03] MEDS: Ensure Plus High Protein 120 ML LIQUID PO ×4 (05:18→19:40)
[2022-02-03] MEDS: Polyethylene Glycol 3350 17 GM PACKET PO (05:19)
[2022-02-03 05:20] VITALS: BP 143/62; PULSE 92
[2022-02-03] MEDS: Metoprolol Tartrate 25 MG Tablet PO ×2 (05:20→17:08)
[2022-02-03] MEDS: Enoxaparin 40 MG/0.4 ML Syringe SC (05:20)
[2022-02-03] MEDS: Senna/Docusate Sodium 1 Tablet 2 TABLET PO (05:20)
[2022-02-03] MEDS: Acetaminophen 500 MG Tablet 1000 MG PO ×3 (05:20→19:42)
[2022-02-03 06:02] LABS: Absolute Lymphocyte Count 1.28 X10^3/uL (0.83-4.51); Absolute Neutrophil Count 2.2 X10^3/uL (2.0-7.7); Basophil# 0.02 X10^3/uL; Basophil% 0.5 % (0-1); Eosinophil# 0.18 X10^3/uL; Eosinophils% 4.5 % (0-5); Hematocrit 33.7 % (37-47); Hemoglobin 10.3 g/dL (12.0-15.0); Lymphocyte # 1.28 X10^3/ul (0.83-4.51); Lymphocyte % 31.7 % (19-41); Mean Corp Hgb Conc 30.6 g/dL (32-36); Mean Corpuscular Hgb 29.6 pg (27.0-32.0); Mean Corpuscular Volume 96.8 fL (81-99); Mean Platelet Vol. 9.8 fl (6.2-12.0); Monocyte# 0.34 X10^3/uL; Monocyte% 8.4 % (0-10); NRBC Flagged by Analyzer 0 % (0-5); Neutrophil # 2.21 X10^3/uL (2.7-7.7); Neutrophil % 54.7 % (47-70); Platelet Count 295 K/mm3 (150-450); RBC Distribution Width CV 14.7 % (11.6-14.6); RBC Distribution Width SD 51.3 fl (35.1-43.9); Red Blood Count 3.48 M/mm3 (4.2-5.4)
[2022-02-03 06:32] LABS: Anion Gap 6 (5-15); BUN 23 mg/dL (7-18); Calcium,Total 8.3 mg/dL (8.5-10.1); Chloride 105 mmol/L (98-107); Creatinine, Serum 0.82 mg/dL (0.55-1.02); EST Glomerular Filtration Rate 70 mL/min (>60); Est Glom Filt Rate - Afr Amer 85 mL/min (>60); Estimated Creatinine Clearance 51.52 ml/min; Glucose 130 mg/dL (74-106); Potassium 4.1 mmol/L (3.5-5.1); Sodium Level 138 mmol/L (136-145)
[2022-02-03] MEDS: Aspirin E.C. 81 MG Tablet PO (08:24)
[2022-02-03 13:46] VITALS: BP 159/70; PULSE 88; RESP 16; TEMP 36.6; O2SAT 96
[2022-02-03 17:08] VITALS: BP 147/76; PULSE 84
[2022-02-03] MEDS: Montelukast 10 MG Tablet PO (19:43)
[2022-02-03 22:00] VITALS: PULSE 86; RESP 16; O2SAT 97
[2022-02-04] MEDS: Ensure Plus High Protein 120 ML LIQUID PO ×4 (05:52→20:37)
[2022-02-04] MEDS: Polyethylene Glycol 3350 17 GM PACKET PO (05:53)
[2022-02-04 05:55] VITALS: BP 159/71; PULSE 94
[2022-02-04] MEDS: Acetaminophen 500 MG Tablet 1000 MG PO ×3 (05:55→20:35)
[2022-02-04] MEDS: Metoprolol Tartrate 25 MG Tablet PO ×2 (05:55→18:35)
[2022-02-04] MEDS: Senna/Docusate Sodium 1 Tablet 2 TABLET PO ×2 (05:56→18:35)
[2022-02-04] MEDS: Enoxaparin 40 MG/0.4 ML Syringe SC (06:03)
[2022-02-04] MEDS: Aspirin E.C. 81 MG Tablet PO (07:48)
[2022-02-04 09:19] VITALS: PULSE 74; RESP 18; O2SAT 98
[2022-02-04 15:46] VITALS: BP 159/73; PULSE 86; RESP 17; TEMP 37.1; O2SAT 95
[2022-02-04 18:35] VITALS: PULSE 86
[2022-02-04] MEDS: Montelukast 10 MG Tablet PO (20:35)
[2022-02-04] MEDS: traMADol 50 MG Tablet PO (22:30)
[2022-02-05 06:10] VITALS: BP 148/73; PULSE 87
[2022-02-05] MEDS: Acetaminophen 500 MG Tablet 1000 MG PO ×3 (06:10→21:08)
[2022-02-05] MEDS: Senna/Docusate Sodium 1 Tablet 2 TABLET PO ×2 (06:10→17:35)
[2022-02-05] MEDS: Metoprolol Tartrate 25 MG Tablet PO ×2 (06:10→17:35)
[2022-02-05] MEDS: Ensure Plus High Protein 120 ML LIQUID PO ×4 (06:10→21:06)
[2022-02-05] MEDS: Polyethylene Glycol 3350 17 GM PACKET PO (06:10)
[2022-02-05] MEDS: Enoxaparin 40 MG/0.4 ML Syringe SC (06:11)
[2022-02-05] MEDS: Aspirin E.C. 81 MG Tablet PO (08:38)
[2022-02-05] MEDS: traMADol 50 MG Tablet PO (11:19)
[2022-02-05 16:00] VITALS: BP 151/85; PULSE 77; RESP 18; TEMP 36.5; O2SAT 95
[2022-02-05 17:35] VITALS: BP 172/69; PULSE 74
[2022-02-05] MEDS: Montelukast 10 MG Tablet PO (21:08)
[2022-02-06 06:13] VITALS: BP 187/62; PULSE 81
[2022-02-06] MEDS: Acetaminophen 500 MG Tablet 1000 MG PO ×3 (06:13→21:19)
[2022-02-06] MEDS: Metoprolol Tartrate 25 MG Tablet PO ×2 (06:13→18:17)
[2022-02-06] MEDS: Polyethylene Glycol 3350 17 GM PACKET PO (06:13)
[2022-02-06] MEDS: Enoxaparin 40 MG/0.4 ML Syringe SC (06:14)
[2022-02-06] MEDS: Senna/Docusate Sodium 1 Tablet 2 TABLET PO ×2 (06:14→18:18)
[2022-02-06] MEDS: Aspirin E.C. 81 MG Tablet PO (08:28)
[2022-02-06] MEDS: Ensure Plus High Protein 120 ML LIQUID PO ×3 (14:35→21:17)
[2022-02-06 16:00] VITALS: BP 151/71; PULSE 78; RESP 18; TEMP 36.7; O2SAT 97
[2022-02-06 18:17] VITALS: BP 138/75; PULSE 90
[2022-02-06] MEDS: Montelukast 10 MG Tablet PO (21:18)
[2022-02-06 21:23] VITALS: PULSE 73; RESP 16; O2SAT 95
[2022-02-07] MEDS: Ensure Plus High Protein 120 ML LIQUID PO ×4 (05:06→21:46)
[2022-02-07 05:07] VITALS: BP 149/76; PULSE 80
[2022-02-07] MEDS: Metoprolol Tartrate 25 MG Tablet PO ×2 (05:07→16:48)
[2022-02-07] MEDS: Polyethylene Glycol 3350 17 GM PACKET PO (05:08)
[2022-02-07] MEDS: Acetaminophen 500 MG Tablet 1000 MG PO ×3 (05:08→21:47)
[2022-02-07] MEDS: Senna/Docusate Sodium 1 Tablet 2 TABLET PO (05:09)
[2022-02-07] MEDS: Enoxaparin 40 MG/0.4 ML Syringe SC (05:09)
[2022-02-07] MEDS: Aspirin E.C. 81 MG Tablet PO (08:45)
[2022-02-07 15:24] VITALS: BP 146/82; PULSE 96; RESP 16; TEMP 36.4
[2022-02-07 16:48] VITALS: PULSE 96
[2022-02-07 19:59] VITALS: PULSE 80; RESP 14; O2SAT 98
[2022-02-07] MEDS: Montelukast 10 MG Tablet PO (21:47)
[2022-02-08 04:33] VITALS: BP 151/69; PULSE 83
[2022-02-08] MEDS: Metoprolol Tartrate 25 MG Tablet PO ×2 (04:33→18:03)
[2022-02-08] MEDS: Acetaminophen 500 MG Tablet 1000 MG PO ×3 (04:33→21:10)
[2022-02-08] MEDS: Enoxaparin 40 MG/0.4 ML Syringe SC (04:33)
[2022-02-08] MEDS: Ensure Plus High Protein 120 ML LIQUID PO ×4 (04:33→21:10)
[2022-02-08] MEDS: Aspirin E.C. 81 MG Tablet PO (07:43)
[2022-02-08 08:50] VITALS: PULSE 86; RESP 16; O2SAT 97
[2022-02-08 15:01] VITALS: BP 141/74; PULSE 83; RESP 18; TEMP 36.3; O2SAT 96
--- NOTE | 2022-02-08 15:23 | CASEMGMT ---
Social Work Received call from gddtr requesting updates on DC plans. Explained IDTs recommendations for DC within a week and with / care of a physical person. Gddtr inquired about SNF, [facility], [facility]. SW agreed to all options - educated to private pay cost for all options. Gddtr requesting referral to [facility], [place], [facility]; however, will look into [facility] 5 days/wk. SW offered to provide resources. Gddtr agreed and provided email. Email sent with [facility] and [facility] resources. Referrals made to SNFs via [facility]. Gddtr appreciative. SW to continue to follow. Misty Choudhary, GISELE DAVISW
[2022-02-08 18:03] VITALS: PULSE 85
[2022-02-08] MEDS: Montelukast 10 MG Tablet PO (21:10)
[2022-02-09 05:36] VITALS: BP 160/77; PULSE 74
[2022-02-09] MEDS: Acetaminophen 500 MG Tablet 1000 MG PO ×3 (05:36→21:06)
[2022-02-09] MEDS: Metoprolol Tartrate 25 MG Tablet PO ×2 (05:36→17:36)
[2022-02-09] MEDS: Enoxaparin 40 MG/0.4 ML Syringe SC (05:37)
[2022-02-09] MEDS: Ensure Plus High Protein 120 ML LIQUID PO ×4 (05:37→21:08)
[2022-02-09] MEDS: Aspirin E.C. 81 MG Tablet PO (08:27)
--- NOTE | 2022-02-09 11:43 | CASEMGMT ---
Social Work [facility] can accept pt. W reviewing. Received call from gddtr stating she had spoken to [facility] and there is only one bed left that cannot be held. Gddtr requesting transfer 02/10. IDT agreeable. SW confirmed DC with [facility]. Son can transport pt at 1100. PASRR completed. Spoke with pt and pt is agreeable. Plan: DC to [facility], nonskilled, 02/10 GISELE Ring
[2022-02-09 14:41] VITALS: BP 137/75; PULSE 82; RESP 18; TEMP 36.9; O2SAT 94
[2022-02-09 17:36] VITALS: BP 156/78; PULSE 72
--- NOTE | 2022-02-09 20:08 | DS.PCM_ITS ---
Providers Date of Admission: 01/19/22 Primary Care Physician: Dr. Levon White MD Reason For Visit: PUBIC RAMI FRACTURE Diagnosis Discharge Diagnosis (1) Debility: Status: Acute Code(s): R53.81 - Other malaise (2) Frequent falls: Status: Acute Code(s): R29.6 - Repeated falls (3) Fracture, pelvis closed: Status: Acute Code(s): S32.9XXA - Fracture of unspecified parts of lumbosacral spine and pelvis, initial encounter for closed fracture (4) UTI (urinary tract infection): Status: Acute Code(s): N39.0 - Urinary tract infection, site not specified (5) Essential hypertension: Status: Inactive Code(s): I10 - Essential (primary) hypertension (6) Paroxysmal atrial fibrillation: Status: Inactive Code(s): I48.0 - Paroxysmal atrial fibrillation (7) Allergic rhinitis: Status: Acute Code(s): J30.9 - Allergic rhinitis, unspecified Plan 86 year old female with below past medical history hospitalized for left pelvis fracture, complicated by urinary tract infection, admitted to TCU with debility, here for rehabilitation, strengthening, prior to discharge home with family. * Debility - PT/OT. * Pain - Tylenol 1000mg q8, Tramadol 50mg q6h prn pain (1-5), Oxycodone 5mg q4h prn pain (6-10). * Bowel - Miralax 17gm daily, senna/colace 2 tablets bid, MOM 30ml po x 1 dose, then daily prn. * Adult immunization - Administer pneumonia vaccine, covid19 vaccine, flu vaccine as appropriate. * DVT prophylaxis - Lovenox 40mg sc daily. * Atrial fibrillation - Metoprolol 25mg bid, aspirin 81mg daily, no anticoagulation due to frequent falls. * Allergic rhinitis - Singulair 10mg daily. * Tinea Corporis - Nystatin powder topical daily prn. * Urinary tract infection - Bactrim DS 1 tablet q12 thru 01/20/2022. Medications at Discharge Home Medications aspirin 81 mg tablet,delayed release 81 mg PO DAILY [facility] 04/12/18 nystatin 100,000 unit/gram topical powder 1 applic topical DAILY PRN SKIN UNDER BREASTS 12/06/21 montelukast 10 mg tablet 10 mg PO QHS ALLERGIES #90 tabs 01/11/22 metoprolol tartrate 25 mg tablet 25 mg PO BID BLOOD PRESSURE 01/18/22 acetaminophen 500 mg tablet 1,000 mg PO Q8 #0 tabs 02/09/22 Hospital Course Operations None Procedures None Summary of Care Provided Minutes Spent on Discharge: 35 Hospital Course: 86 year old female with below past medical history hospitalized for left pelvis fracture, complicated by urinary tract infection, admitted to TCU with debility, here for rehabilitation, strengthening, prior to discharge home with family. Discharge to [facility] 02/10/2022, nonskilled. Physical Exam Const alert General Appearance: cooperative HEENT normocephalic Eyes PERRL and EOMs intact bilaterally Neck supple, no JVD and no carotid bruits Resp normal respiratory effort, normal air movement and clear to auscultation bilaterally Cardio regular rate and regular rhythm GI normal to inspection, nondistended, normoactive bowel sounds, non-tender and non-distended Extremity normal capillary refill General Extremity: Negative for edema Skin no rashes or lesions noted General Skin Exam: no breakdown Psych affect normal Appearance: appropriate Weight / BMI Weight Weight: 81.647 kg Body Mass Index (BMI) 21.9 ABG / Lab / Microbiology Data Result Diagrams: 02/03/22 05:23 02/03/22 05:23 Microbiology: Microbiology 01/28/22 11:50 Urine, Catheterized Urine Culture - Final Culture exhibits no growth. 01/23/22 22:50 Nasal Secretion SARS-CoV-2 Antigen (Rapid) - Final 01/21/22 05:00 Nasal Secretion SARS-CoV-2 Antigen (Rapid) - Final D/C Instructions Discharge Diet: No restrictions Discharge Activity: Return to Normal Activity, May Shower and Use Walker Weight Bearing Status: Weight bearing as tolerated Call your doctor if you observe: Fever of 101 or Higher, Inability to urinate, Inability to have a bowel movement, Shortness of breath, Dizziness, Fainting spells, Swelling in the ankles, Chest pain and Uncontrolled pain Additional Instructions: Discharge to [facility] 02/10/2022, nonskilled. Meaningful Use Info Meaningful Use Diagnoses (Choose all that apply): None applicable Discharge Plan Admission Admit Date/Time: 01/19/22 14:36 Primary Reason for Your Visit: Debility. Attending Provider: Remy Champagne Chi Primary Care Provider: Levon White Instructions Additional Instructions / Restrictions: Discharge to [facility] 02/10/2022, nonskilled. Discharge Orders/Prescriptions Prescriptions: New acetaminophen 500 mg Tablet 1,000 mg PO Q8 Qty: 0 0RF Continued aspirin 81 MG tablet 81 mg PO DAILY nystatin 100,000 unit/gram powder 1 applic topical DAILY PRN (Reason: SKIN UNDER BREASTS) metoprolol tartrate 25 mg tablet 25 mg PO BID montelukast 10 mg tablet 10 mg PO QHS Qty: 90 3RF Discontinued sulfamethoxazole-trimethoprim [Bactrim DS] 800-160 mg tablet 1 tab PO Q12H oxycodone 5 mg Tablet 5 mg PO Q4H PRN PRN (Reason: Pain Score 4-10) 1 Days Qty: 6 0RF enoxaparin 40 mg/0.4 mL syringe 40 mg subcut DAILY Referrals / Follow Up: Levon White MD [Primary Care Provider] - Disposition Disposition (needs filled in before D/C Order can be placed): NonSkilled NH/Intermed Care
--- NOTE | 2022-02-09 20:12 | TREXTCAR_ITS ---
Diet Diet Order/Speech Therapy: 01/26/22 14:29 Diet: Regular - General Food consistency:: Easy to Chew Liquid Consistency:: Regular/Thin Dietary Modifications:: No Added Salt Is pt able to select menu?: Yes Routine Orders/Code Status Code Status: Full Code Problem/Diagnosis (1) Debility: Status: Acute Code(s): R53.81 - Other malaise (2) Frequent falls: Status: Acute Code(s): R29.6 - Repeated falls (3) Fracture, pelvis closed: Status: Acute Code(s): S32.9XXA - Fracture of unspecified parts of lumbosacral spine and pelvis, initial encounter for closed fracture (4) UTI (urinary tract infection): Status: Acute Code(s): N39.0 - Urinary tract infection, site not specified (5) Essential hypertension: Status: Inactive Code(s): I10 - Essential (primary) hypertension (6) Paroxysmal atrial fibrillation: Status: Inactive Code(s): I48.0 - Paroxysmal atrial fibrillation (7) Allergic rhinitis: Status: Acute Code(s): J30.9 - Allergic rhinitis, unspecified Plan 86 year old female with below past medical history hospitalized for left pelvis fracture, complicated by urinary tract infection, admitted to TCU with debility, here for rehabilitation, strengthening, prior to discharge home with family. * Debility - PT/OT. * Pain - Tylenol 1000mg q8, Tramadol 50mg q6h prn pain (1-5), Oxycodone 5mg q4h prn pain (6-10). * Bowel - Miralax 17gm daily, senna/colace 2 tablets bid, MOM 30ml po x 1 dose, then daily prn. * Adult immunization - Administer pneumonia vaccine, covid19 vaccine, flu vaccine as appropriate. * DVT prophylaxis - Lovenox 40mg sc daily. * Atrial fibrillation - Metoprolol 25mg bid, aspirin 81mg daily, no anticoagulation due to frequent falls. * Allergic rhinitis - Singulair 10mg daily. * Tinea Corporis - Nystatin powder topical daily prn. * Urinary tract infection - Bactrim DS 1 tablet q12 thru 01/20/2022. Allergies/Procedures Done in Hospital Allergies amoxicillin Allergy (Verified 01/18/22 13:43) Rash cefdinir Allergy (Verified 01/18/22 13:43) Rash clavulanic acid [From Augmentin] Allergy (Verified 01/18/22 13:43) Rash heparin Allergy (Verified 01/18/22 13:43) Rash levofloxacin [From Levaquin] Allergy (Verified 01/18/22 13:43) Rash antibiotic Allergy (Uncoded 01/14/22 09:34) rash Antibiotic for cellulitis Procedures: None Type of Care/Length of Stay Estimated LOS: More Than 30 Days Type of Care Needed: Intermediate Rehab Potential: Good Prognosis: Good Additional Orders/Day of Discharge Day of Discharge: 02/10/22 Dietary and Speech Recommendations Dietitian Recommendations/Changes: Will continue 4 oz ensure plus high protein w/ medpass 4x/day d/t variable po intake Will continue Regular No Added Salt diet d/t variable po intake at meals. Discharge Plan Admission Admit Date/Time: 01/19/22 14:36 Primary Reason for Your Visit: Debility. Attending Provider: Remy Champagne Chi Primary Care Provider: Levon White Instructions Additional Instructions / Restrictions: Discharge to [facility] 02/10/2022, nonskilled. Discharge Orders/Prescriptions Prescriptions: New acetaminophen 500 mg Tablet 1,000 mg PO Q8 Qty: 0 0RF Continued aspirin 81 MG tablet 81 mg PO DAILY nystatin 100,000 unit/gram powder 1 applic topical DAILY PRN (Reason: SKIN UNDER BREASTS) metoprolol tartrate 25 mg tablet 25 mg PO BID montelukast 10 mg tablet 10 mg PO QHS Qty: 90 3RF Discontinued sulfamethoxazole-trimethoprim [Bactrim DS] 800-160 mg tablet 1 tab PO Q12H oxycodone 5 mg Tablet 5 mg PO Q4H PRN PRN (Reason: Pain Score 4-10) 1 Days Qty: 6 0RF enoxaparin 40 mg/0.4 mL syringe 40 mg subcut DAILY Referrals / Follow Up: Levon White MD [Primary Care Provider] - Disposition Disposition (needs filled in before D/C Order can be placed): NonSkilled [place]
[2022-02-09 20:45] VITALS: PULSE 72; RESP 14; O2SAT 95
[2022-02-09] MEDS: Montelukast 10 MG Tablet PO (21:06)
[2022-02-10] MEDS: Enoxaparin 40 MG/0.4 ML Syringe SC (05:02)
[2022-02-10 05:03] VITALS: BP 156/75; PULSE 80
[2022-02-10] MEDS: Ensure Plus High Protein 120 ML LIQUID PO (05:03)
[2022-02-10] MEDS: Acetaminophen 500 MG Tablet 1000 MG PO (05:03)
[2022-02-10] MEDS: Metoprolol Tartrate 25 MG Tablet PO (05:03)
[2022-02-10 05:48] LABS: Absolute Lymphocyte Count 1.51 X10^3/uL (0.83-4.51); Absolute Neutrophil Count 3.6 X10^3/uL (2.0-7.7); Basophil# 0.02 X10^3/uL; Basophil% 0.3 % (0-1); Eosinophils% 3.5 % (0-5); Hematocrit 32.5 % (37-47); Hemoglobin 9.9 g/dL (12.0-15.0); Lymphocyte # 1.51 X10^3/ul (0.83-4.51); Lymphocyte % 26.2 % (19-41); Mean Corp Hgb Conc 30.5 g/dL (32-36); Mean Corpuscular Hgb 29.1 pg (27.0-32.0); Mean Corpuscular Volume 95.6 fL (81-99); Mean Platelet Vol. 9.1 fl (6.2-12.0); Monocyte# 0.47 X10^3/uL; Monocyte% 8.1 % (0-10); NRBC Flagged by Analyzer 0 % (0-5); Neutrophil # 3.55 X10^3/uL (2.7-7.7); Neutrophil % 61.6 % (47-70); Platelet Count 266 K/mm3 (150-450); RBC Distribution Width CV 14.6 % (11.6-14.6); RBC Distribution Width SD 51.4 fl (35.1-43.9); White Blood Count 5.8 K/mm3 (4.4-11.0)
[2022-02-10 06:14] LABS: Anion Gap 6 (5-15); BUN 23 mg/dL (7-18); BUN/Creat Ratio 30.3 RATIO (10-20); Calcium,Total 8.6 mg/dL (8.5-10.1); Chloride 107 mmol/L (98-107); Creatinine, Serum 0.76 mg/dL (0.55-1.02); EST Glomerular Filtration Rate 77 mL/min (>60); Est Glom Filt Rate - Afr Amer 93 mL/min (>60); Estimated Creatinine Clearance 42.25 ml/min; Glucose 116 mg/dL (74-106); Potassium 4.1 mmol/L (3.5-5.1); Sodium Level 139 mmol/L (136-145)
[2022-02-10] MEDS: Aspirin E.C. 81 MG Tablet PO (08:21)
[2022-02-10 10:00] VITALS: PULSE 81; O2SAT 98
--- NOTE | 2022-02-10 10:30 | NURSING ---
Called report to [facility]
--- NOTE | 2022-02-10 10:37 | CASEMGMT ---
Social Work BIMS (02/17) and PHQ-9 (09/29) completed for MDS assessment. Misty Choudhary MSW MEDICAL OFFICE RECEPTIONIST
[2022-02-10 10:48] VITALS: BP 152/69; PULSE 81; RESP 18; TEMP 37.2; O2SAT 98
== END 2022-02-10 11:00 | disposition intermediate care facility (04) | DRG 560 ==
PROVIDERS: Admitting Provider Family Medicine Geriatric Medicine; PCP Internal Medicine; Visit Provider Family Medicine Geriatric Medicine
DX: S32.9XXD Fracture of unspecified parts of lumbosacral spine and pelvis, subsequent encounter for fracture with routine healing (principal); N39.0 Urinary tract infection, site not specified; B35.4 Tinea corporis; I48.0 Paroxysmal atrial fibrillation; J44.9 Chronic obstructive pulmonary disease, unspecified; I10 Essential (primary) hypertension; W19.XXXD Unspecified fall, subsequent encounter; Z79.01 Long term (current) use of anticoagulants; Z86.16 Personal history of COVID-19; Z79.82 Long term (current) use of aspirin; Z79.899 Other long term (current) drug therapy; Z23 Encounter for immunization
CPT/HCPCS: 36415; 80048; 81001; 85025; 87086; 87426; 92507; 92523; 92526; 92610; 97110; 97116; 97162; 97166; 97530; 97535; 97802; G0008; 90686

== ENCOUNTER → 2022-03-18 | Outpatient (CLI) | payer MEDICARE, OTHER, SELFPAY ==
[2022-03-18 12:28] LABS: Absolute Lymphocyte Count 1.35 X10^3/uL (0.83-4.51); Absolute Neutrophil Count 3.5 X10^3/uL (2.0-7.7); Basophil# 0.04 X10^3/uL; Basophil% 0.7 % (0-1); Eosinophil# 0.11 X10^3/uL; Hematocrit 36.4 % (37-47); Hemoglobin 11.7 g/dL (12.0-15.0); Lymphocyte # 1.35 X10^3/ul (0.83-4.51); Lymphocyte % 24.8 % (19-41); Mean Corp Hgb Conc 32.1 g/dL (32-36); Mean Corpuscular Hgb 29.8 pg (27.0-32.0); Mean Corpuscular Volume 92.9 fL (81-99); Mean Platelet Vol. 10.4 fl (6.2-12.0); Monocyte# 0.49 X10^3/uL; NRBC Flagged by Analyzer 0 % (0-5); Neutrophil # 3.46 X10^3/uL (2.7-7.7); Neutrophil % 63.5 % (47-70); Platelet Count 245 K/mm3 (150-450); RBC Distribution Width CV 14.1 % (11.6-14.6); RBC Distribution Width SD 47.5 fl (35.1-43.9); Red Blood Count 3.92 M/mm3 (4.2-5.4); White Blood Count 5.5 K/mm3 (4.4-11.0)
[2022-03-18 12:44] LABS: ALB/GLOB Ratio 0.9 RATIO (0.9-2.4); AST(SGOT) 18 U/L (15-37); Alanine Aminotransfer ALT/SGPT 16 U/L (13-56); Albumin, Serum 3.3 g/dL (3.2-5.0); Alkaline Phosphatase 133 U/L (45-117); Anion Gap 6 (5-15); BUN 15 mg/dL (7-18); BUN/Creat Ratio 14.9 RATIO (10-20); Calcium,Total 8.7 mg/dL (8.5-10.1); Chloride 109 mmol/L (98-107); Creatinine, Serum 1.01 mg/dL (0.55-1.02); EST Glomerular Filtration Rate 55 mL/min (>60); Est Glom Filt Rate - Afr Amer 67 mL/min (>60); Globulin 3.5 g/dL (2.2-4.2); Glucose 110 mg/dL (74-106); Protein, Total 6.8 g/dL (6.4-8.2); Sodium Level 140 mmol/L (136-145)
== END | disposition home or self-care (01) ==
LOC: BIMLAB 10:44
PROVIDERS: PCP Internal Medicine; Referring Provider Internal Medicine; Visit Provider Internal Medicine
DX: K59.00 Constipation, unspecified (principal)
CPT/HCPCS: 36415; 80053; 85025

== ENCOUNTER 2022-04-28 18:12 | Inpatient (IN) | payer MEDICARE, OTHER, SELFPAY ==
[2022-04-28] VITALS (9 sets, daily range): BP systolic 170–217; BP diastolic 63–96; PULSE 56–76; RESP 16–23; TEMP 36.1–36.8; O2SAT 94–97; BMI 27.0; BMI 25.2
--- NOTE | 2022-04-28 18:27 | CT_ITS ---
STUDY: CT BRAIN WITHOUT CONTRAST REASON FOR EXAM: Female, 86 years old. confusion RADIATION DOSAGE (If Supplied By Facility): CTDIvol = ( 44.99 ) mGy, DLP = ( 812.98 ) mGycm TECHNIQUE: Transaxial CT imaging of the brain was performed without administration of intravenous contrast material. Individualized dose optimization techniques were used for this CT. COMPARISON: 12/06/2021. FINDINGS: Normal soft tissue structures. Normal calvarium. There is moderate cerebral atrophy with widening of the extra-axial spaces and ventricular dilatation. There are areas of decreased attenuation within the white matter tracts of the supratentorial brain, consistent with microvascular disease changes. There is no intracranial hemorrhage. There are no findings of an acute ischemic infarction. Normal visualized paranasal sinuses. CT/Brain/Head without Contrast IMPRESSION: No acute findings. Microvascular ischemic changes. Atrophy. Electronically Signed: Asha Rhodes MD at 19:54 EST Reading Location ID and State: [id number] / Tel , Service support ,
--- NOTE | 2022-04-28 18:29 | EDS_ITS ---
HPI History of Present Illness Chief Complaint: Neuro S/Sx Detail of Chief Complaint: Increased confusion and concern for possible stroke Informant: patient and family Narrative Narrative: Patient presents with family members were concerned patient may have had a stroke. Patient has had increased confusion that has been ongoing for months with history of dementia. The confusion seems to have be accelerating. Patient's niece noted about 6 days ago that she was leaning to the right. EMS was summoned today and they thought patient may have a left facial droop. Patient denies any recent falls or head injuries. She does have history of falls and is currently not anticoagulated for her A-fib due to the fact that she recently broke her pelvis. Patient does ambulate with a walker. She denies difficulty with speech. She denies chest pain or abdominal pain. She has had UTIs in the past. Prior similar symptoms: No PFSH PFSH Medical History (Updated 04/28/22 @ 20:[address] 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 Lung nodule seen on imaging study Obesity Osteoporosis Paroxysmal atrial fibrillation Pulmonary hypertension Secondary pulmonary arterial hypertension Home Medications aspirin 81 mg tablet,delayed release 81 mg PO DAILY [facility] 04/12/18 [History Last Taken 01/18/22] nystatin 100,000 unit/gram topical powder 1 applic topical DAILY PRN SKIN UNDER BREASTS 12/06/21 [History Last Taken 01/18/22] montelukast 10 mg tablet 10 mg PO QHS ALLERGIES #90 tabs 01/11/22 [Rx Last Taken 01/17/22] acetaminophen 500 mg tablet 1,000 mg PO Q8 #0 tabs 02/09/22 [Rx Last Taken Unknown] polyethylene glycol 3350 17 gram/dose oral powder (Miralax) 4 g PO BID PRN constipation #510 grams 03/18/22 [Rx Last Taken Unknown] metoprolol tartrate 25 mg tablet 25 mg PO BID BLOOD PRESSURE #180 tabs 03/22/22 [Rx Last Taken Unknown] donepezil 10 mg tablet 10 mg PO QHS #90 tabs 04/15/22 [Rx Last Taken Unknown] sertraline 25 mg tablet (Zoloft) 25 mg PO DAILY #90 tabs 04/15/22 [Rx Last Taken Unknown] Allergy/AdvReac Type Severity Reaction Status Date / Time amoxicillin Allergy Rash Verified 04/28/22 18:16 cefdinir Allergy Rash Verified 04/28/22 18:16 clavulanic acid Allergy Rash Verified 04/28/22 18:16 [From Augmentin] heparin Allergy Rash Verified 04/28/22 18:16 levofloxacin [From Levaquin] Allergy Rash Verified 04/28/22 18:16 antibiotic Allergy rash Uncoded 04/28/22 18:16 Family History Father Cancer Mother Hypertension Dementia Surgical History H/O basal cell carcinoma excision History of vein stripping Social History household members: family and other details: Lives with son. Smoking Status: Never smoker alcohol intake: never substance use type: does not use ROS ROS ED Review of Systems ROS Unobtainable: other Constitutional Constitutional ED: Reports lethargy; Denies chills, fever(s), sweats or weight loss Eyes Eyes: Denies blurry vision, change in vision or diplopia ENT ENT ED: Denies rhinorrhea or sore throat Cardiovascular Cardiovascular: Denies chest pain, orthopnea or racing heartbeat Respiratory/Chest Respiratory/Chest: Denies cough, dyspnea, dyspnea on exertion, orthopnea or sputum Gastrointestinal Gastrointestinal: Denies abdominal pain, diarrhea, nausea or vomiting Genitourinary Genitourinary ED: Denies dysuria, hematuria or urinary frequency Musculoskeletal Musculoskeletal: Denies arthralgias, back pain, myalgias or neck pain Integumentary Denies abscess, Abrasions or rash Neurologic Neurologic: Reports other Details: Increased confusion ; Denies headache(s) or weakness Psychiatric Psychiatric: Denies anxiety, depression or suicidal thoughts Endocrine Endocrinology: Denies polydipsia, polyphagia or polyuria Hematologic/Lymphatic Hematologic/Lymphatic: Denies easy bleeding, easy bruising or lymphadenopathy Allergic/Immunologic Allergic/Immunologic ED: Denies mouth swelling, tongue swelling or urticaria EXAM Physical Exam Narrative Exam Narrative: Patient awake and alert and nontoxic-appearing. Const Vital Signs: 04/28/22 18:12 04/28/22 19:35 04/28/22 20:11 Temperature 97.6 F L Temperature Source Temporal Pulse Rate 66 56 L 64 Respiratory Rate 18 19 H 23 H Blood Pressure 173/82 H 177/63 H 208/76 H Blood Pressure Mean 112 101 120 Pulse Ox 96 95 95 Oxygen Delivery Method Room Air Room Air Room Air Positive well nourished and well developed General Appearance ED: well developed and NAD HEENT Reports TM's clear and moist mucous membranes normocephalic and atraumatic; Negative for trauma or tenderness Tympanic Membrane ED: Yes TM's clear Eyes PERRL and EOMs intact bilaterally General Eye ED: Negative for pale conjunctiva or scleral icterus Neck no lymphadenopathy, supple and no JVD General: Negative for tenderness Chest Wall inspection of chest normal and palpation of chest normal Chest: Negative for tenderness Resp normal respiratory effort and clear to auscultation bilaterally Effort and Inspection: Negative for respiratory distress or pain with movement Auscultation: Negative for rhonchi, wheezes or diminished lung sounds Cardio S1 normal heart sound, S2 normal heart sound and no murmurs; Negative for regular rate or regular rhythm Rhythm: abnormal rhythm Peripheral Pulses: pulses 2+ throughout GI normal to inspection, nondistended, normoactive bowel sounds, soft to palpation, non-tender, non-distended and no masses Back/Spine no CVA tenderness and no thoracic nor lumbar tenderness Extremity normal to inspection General Extremety ED: Negative for edema General Extremity: Negative for edema Neuro oriented x3, CN's II-XII intact bilaterally, no sensory deficits noted and gait normal Neuro Narrative: Finger-nose and heel alexander testing within normal limits, negative Romberg, negative for drift. NIH stroke scale was 0 here. I did not appreciate any facial droop. Sensorium / Orientation: awake, alert, oriented to person, oriented to place and oriented to time Motor Exam: strength 5/5 throughout and strength abnormal Psych mental status grossly normal Skin no rashes or lesions noted and no wounds MDM MDM MDM Narrative Medical decision making narrative: Presents with increased confusion and history of dementia. Family member noticed that her confusion seemed to get worse after she was placed on some medication for dementia. Patient with history of UTIs as well. CBC with differential obtained was normal here chemistries unremarkable. Troponin was normal at 9. Urinalysis was positive for nitrites but only 5-10 WBCs and +2 bacteria. I did send off a culture. CT scan of the brain without contrast obtained showed no evidence of hemorrhage but did show chronic involutional changes and microvascular disease. 1 department patient was having episodes of unsustained V. tach versus A-fib with aberrancy. Patient case will be discussed with hospitalist evaluate patient for admission. Etiology of confusion unclear. I cannot rule out stroke. Patient's medication could be contributing versus progressive dementia. Patient will he receive Lopressor IV for her elevated blood pressure as she did not take her evening dose of metoprolol. Lab Data Attestation: I reviewed the patient's lab results. Labs: Laboratory Results - last 24 hr 04/28/22 04/28/22 04/28/22 18:18 18:18 19:48 WBC 6.2 RBC 4.30 Hgb 12.4 Hct 39.0 MCV 90.7 MCH 28.8 MCHC 31.8 L RDW Std Deviation 45.4 H RDW Coeff of Dave 13.8 Plt Count 258 MPV 10.3 Immature Gran % (Auto) 0.300 Neut % (Auto) 51.7 Lymph % (Auto) 35.7 [place] % (Auto) 9.0 Eos % (Auto) 2.7 Baso % (Auto) 0.6 Absolute Neuts (auto) 3.2 Absolute Lymphs (auto) 2.22 Nucleated RBC % 0 Sodium 141 Potassium 3.4 L Chloride 105 Carbon Dioxide 29.0 Anion Gap 7 BUN 14 Creatinine 0.94 Estim Creat Clear Calc 44.94 Est GFR (MDRD) Af Amer 73 Est GFR (MDRD) Non-Af 60 BUN/Creatinine Ratio 14.9 Glucose 122 H Calcium 9.2 Troponin I High Sens 9 Urine Color Yellow Urine Clarity Sl. Cloudy Urine pH 6.0 Ur Specific [place] 1.020 Urine Protein Negative Urine Glucose (UA) Normal Urine Ketones Negative Urine Occult Blood 25 H Urine Nitrite Positive H Urine Bilirubin Negative Urine Urobilinogen Normal Ur Leukocyte Esterase 25 H Urine RBC 0 SEEN Urine WBC 5-10 SEEN Ur Squamous Epith Cells 5-10 SEEN Urine Bacteria 2+ Urine Mucus 0 SEEN Radiography Diagnostic Testing: Clinical Impression(s) from Imaging Studies Brain CT 04/28/22 18:27 IMPRESSION: No acute findings. Microvascular ischemic changes. Atrophy. Electronically Signed: Asha Rhodes MD at 19:54 EST Reading Location ID and State: [id number] / Tel , Service support , Chest X-Ray 04/28/22 18:45 IMPRESSION: No radiographic evidence of acute cardiopulmonary disease. Electronically Signed: Asha Rhodes MD at 19:17 EST Reading Location ID and State: [id number] / Tel , Service support , 1 view chest x-ray obtained interpreted by myself as no acute disease process without evidence of infiltrate or pneumothorax. Radiology in agreement. EKG Initial EKG: Attestation: I personally reviewed and interpreted this EKG as follows: Comments: Sinus rhythm with a rate of 59 bpm with no acute ST segment changes Discharge Plan Dx/Rx/DC Orders Clinical Impression: Acute confusion, Hypertension, V tach, History of atrial fibrillation, Acute UTI Disposition Disposition: Acute Care [facility]
[2022-04-28 18:44] LABS: Absolute Lymphocyte Count 2.22 X10^3/uL (0.83-4.51); Absolute Neutrophil Count 3.2 X10^3/uL (2.0-7.7); Basophil# 0.04 X10^3/uL; Basophil% 0.6 % (0-1); Eosinophil# 0.17 X10^3/uL; Eosinophils% 2.7 % (0-5); Hemoglobin 12.4 g/dL (12.0-15.0); Lymphocyte # 2.22 X10^3/ul (0.83-4.51); Lymphocyte % 35.7 % (19-41); Mean Corp Hgb Conc 31.8 g/dL (32-36); Mean Corpuscular Hgb 28.8 pg (27.0-32.0); Mean Corpuscular Volume 90.7 fL (81-99); Mean Platelet Vol. 10.3 fl (6.2-12.0); Monocyte# 0.56 X10^3/uL; NRBC Flagged by Analyzer 0 % (0-5); Neutrophil % 51.7 % (47-70); Platelet Count 258 K/mm3 (150-450); RBC Distribution Width CV 13.8 % (11.6-14.6); RBC Distribution Width SD 45.4 fl (35.1-43.9); White Blood Count 6.2 K/mm3 (4.4-11.0)
--- NOTE | 2022-04-28 18:45 | RAD_ITS ---
INDICATION: htn EXAMINATION/TECHNIQUE: X-RAY - XR Chest 1 View COMPARISON: 11/21/2021. FINDINGS: LINES/DEVICES: None. LUNGS: No consolidation, edema or effusion. No pneumothorax. MEDIASTINUM AND CARDIOVASCULAR STRUCTURES: Cardiac silhouette not enlarged. Central airways and mediastinal contour are unremarkable. BONES AND SOFT TISSUES: Unremarkable. RAD/Chest 1 View (Portable) IMPRESSION: No radiographic evidence of acute cardiopulmonary disease. Electronically Signed: Asha Rhodes MD at 19:17 EST Reading Location ID and State: [id number] / Tel , Service support ,
[2022-04-28 19:03] LABS: Anion Gap 7 (5-15); BUN 14 mg/dL (7-18); BUN/Creat Ratio 14.9 RATIO (10-20); Calcium,Total 9.2 mg/dL (8.5-10.1); Chloride 105 mmol/L (98-107); Creatinine, Serum 0.94 mg/dL (0.55-1.02); EST Glomerular Filtration Rate 60 mL/min (>60); Est Glom Filt Rate - Afr Amer 73 mL/min (>60); Estimated Creatinine Clearance 44.94 ml/min; Glucose 122 mg/dL (74-106); Potassium 3.4 mmol/L (3.5-5.1); Sodium Level 141 mmol/L (136-145); Troponin-I HS 9 pg/mL (3.0-54.0)
[2022-04-28] MEDS: 0.9% Normal Saline 1,000 ML 150 ML IV (19:36)
[2022-04-28 19:53] LABS: Mucous, Urine 0 SEEN /hpf (<or=2+); Red Blood Cells-Urine 0 SEEN /hpf (0-5)
[2022-04-28 19:55] LABS: Color, Urine Yellow (Yellow); Glucose, Dipstick Normal (Normal); Ketone-Dipstick Negative (Negative); Leukocyte Esterase-Dipstick 25 /ul (Negative); Nitrite-Dipstick Positive (Negative); Occult Blood-Urine 25 /ul (Negative); Protein-Dipstick Negative (Negative); Urine Bilirubin Dipstick Negative (Negative); Urine Clarity Sl. Cloudy (Clear); Urine Urobilinogen Normal (Normal)
[2022-04-28 20:00] LABS: White Blood Cells 5-10 SEEN /hpf (0-5)
[2022-04-28 20:01] LABS: Bacteria 2+ /hpf (None Seen); Squamous Epithelial Cells - UA 5-10 SEEN /hpf (5-10)
--- NOTE | 2022-04-28 20:02 | EKG12_ITS ---
Test Reason : NEURO Blood Pressure : / mmHG Vent. Rate : 059 BPM Atrial Rate : 059 BPM P-R Int : 194 ms QRS Dur : 084 ms QT Int : 444 ms P-R-T Axes : 053 027 031 degrees QTc Int : 439 ms Sinus bradycardia Otherwise normal ECG Confirmed by LYNNETTE LI, ROSALIO ([id number]), film or videotape editor RYAN SANDERS ([id number]) on 05/02/2022 11:21:49 AM Referred By: Confirmed By:ROSALIO CHRUCH MD
--- NOTE | 2022-04-28 20:16 | CT_ITS ---
We are attempting to reach an attending provider to discuss findings. An addendum with communication details will be sent when the communication is complete. INDICATION: Neuro deficit, acute, stroke suspected EXAMINATION: CT BRAIN WITH CONTRAST TECHNIQUE: Noncontrast axial images were obtained of the brain. Subsequently, routine carotid CT angiogram protocol was performed without and with IV contrast. In addition, images were obtained of the [place]. NASCET criteria using the distal ICAs for comparison were used for evaluation of stenoses. 3D reconstructions were reviewed. A radiation dose optimization technique was used for this scan. IV Contrast dosage and agent: COMPARISON: None. FINDINGS: --CTA NECK: AORTIC ARCH AND BRANCHES: Normal anatomy, patent. RIGHT CCA: No occlusion, significant stenosis or dissection. RIGHT ICA: No occlusion, significant stenosis or dissection. LEFT CCA: No occlusion, significant stenosis or dissection. Mild atherosclerotic calcification of the carotid bulb without stenosis. LEFT ICA: No occlusion, significant stenosis or dissection. RIGHT VERTEBRAL ARTERY: No occlusion, significant stenosis or dissection. LEFT VERTEBRAL ARTERY: No occlusion, significant stenosis or dissection. Multiple attenuation lesions in the thyroid gland bilaterally. --CTA HEAD: --Anterior circulation: ICAs: No significant stenosis at the intracranial/visualized segments. Atherosclerotic calcification of the cavernous carotid arteries without stenosis. ACAs: No significant stenosis at the visualized segments. ACOM: Nonvisualized. MCAs: No significant stenosis at the visualized segments. --Posterior circulation: PCOMs: Nonvisualized on the right. Robust left. Hypoplastic P1 segment of the left [employer]. Posterior cerebral arteries are otherwise unremarkable. BASILAR ARTERY: No significant stenosis. VERTEBRAL ARTERIES: No significant stenosis at the intradural/visualized segments. No evidence of intracranial aneurysm or vascular malformation. Moderate ventriculomegaly commensurate with the degree of sulcal atrophy. Low-attenuation changes in the periventricular white matter consistent with microvascular ischemia. CT/STROKE CTA Head AND Neck W/Con IMPRESSION: No acute findings. No demonstrated aneurysm, dissection, high-grade stenosis or occlusion. Multiple thyroid hypodensities consistent with cysts or nodules. Consider nonemergent ultrasound for further evaluation. Electronically Signed: Asha Rhodes MD at 21:09 EST Reading Location ID and State: [id number] / Tel , Service support ,
[2022-04-28] MEDS: hydrALAZINE 20 MG/ML Vial 5 MG IV ×2 (20:23→21:18)
[2022-04-28 20:46] LABS: Magnesium 1.8 mg/dL (1.6-2.6)
--- NOTE | 2022-04-28 20:57 | PCM.HP.STD ---
HPI - General General Date of Admission: 04/28/22 Date of Service: 04/28/22 Chief Complaint: Increased confusion above baseline, possibly transient L facial droop, transient ataxia. HPI Narrative The patient is an 86 y/o F w/ PMHx: PAF, COPD w/ Allergic rhinitis, HTN, HLD, Chronic BL LE Lymphedema, Dementia unclear type with unclear behavioral disturbance history, Anxiety and Depression who presents to the [facility] ED on 04/28/22 with history of increased confusion noted per family members however the patient's had increased confusion over the last several months with accelerating dementia concerns with niece reporting about 6 days ago that patient had been starting to lean to the right with EMS call today given onset of a left facial droop with no recent fall or head injury however patient does have history of falls which is the reason she is not chronically anticoagulated with history of atrial fibrillation normally using a walker to ambulate prompting family bring her to the ED for evaluation. In the ED patient denies any difficulty with speech or any focal deficits. In the ED upon initial evaluation patient's NIH stroke scale is 0 with no appreciated facial droop or any acute focal deficits. Patient denies any specific dysuria or urinary frequency above her baseline but she has as noted been more confused and nursing upon straight catheter sample reported that the urine was very cloudy and foul-smelling. Work-up in the ED included T97.6, heart rate 66, BP 173/82, respiratory rate 18, 96% on room air, CBC with WC 6.2, hemoglobin 12.4, platelet 258 without marked shift, BMP with potassium 3.4, glucose 122 otherwise not marked appearing, troponin 9, chest x-ray with no acute cardiopulmonary finding, CT head with no acute intracranial findings with microvascular ischemic changes and atrophy, EKG SR with no acute evidence of ischemia, urinalysis with cloudy appearing urine, specific remedy 1.020, occult blood 25, positive nitrite, leukocyte Estrace 25 with 5-10 urine WBCs and 2+ urine bacteria although squamous epithelial cells are also 5-10, urine culture pending per ED. in the ED patient ministered maintenance IV fluids and hydralazine 5 mg IV x1. [facility] Medical History (Updated 04/28/22 @ 20:[address] 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 Lung nodule seen on imaging study Obesity Osteoporosis Paroxysmal atrial fibrillation Pulmonary hypertension Secondary pulmonary arterial hypertension Home Medications aspirin 81 mg tablet,delayed release 81 mg PO DAILY Heart Health 04/12/18 [History Last Taken 01/18/22] nystatin 100,000 unit/gram topical powder 1 applic topical DAILY PRN SKIN UNDER BREASTS 12/06/21 [History Last Taken 01/18/22] montelukast 10 mg tablet 10 mg PO QHS ALLERGIES #90 tabs 01/11/22 [Rx Last Taken 01/17/22] acetaminophen 500 mg tablet 1,000 mg PO Q8 #0 tabs 02/09/22 [Rx Last Taken Unknown] polyethylene glycol 3350 17 gram/dose oral powder (Miralax) 4 g PO BID PRN constipation #510 grams 03/18/22 [Rx Last Taken Unknown] metoprolol tartrate 25 mg tablet 25 mg PO BID BLOOD PRESSURE #180 tabs 03/22/22 [Rx Last Taken Unknown] donepezil 10 mg tablet 10 mg PO QHS #90 tabs 04/15/22 [Rx Last Taken Unknown] sertraline 25 mg tablet (Zoloft) 25 mg PO DAILY #90 tabs 04/15/22 [Rx Last Taken Unknown] Allergy/AdvReac Type Severity Reaction Status Date / Time amoxicillin Allergy Rash Verified 04/28/22 18:16 cefdinir Allergy Rash Verified 04/28/22 18:16 clavulanic acid Allergy Rash Verified 04/28/22 18:16 [From Augmentin] heparin Allergy Rash Verified 04/28/22 18:16 levofloxacin [From Levaquin] Allergy Rash Verified 04/28/22 18:16 antibiotic Allergy rash Uncoded 04/28/22 18:16 Family History Father Cancer Mother Hypertension Dementia Surgical History H/O basal cell carcinoma excision History of vein stripping Social History household members: family and other details: Lives with son. Smoking Status: Never smoker alcohol intake: never substance use type: does not use ROS ROS Narrative Admission Review of Systems given specifically per family of note: CONSTITUTIONAL: No weight loss, fever, chills, +weakness or fatigue. HEENT: Eyes: No visual loss, blurred vision, double vision or yellow sclerae. Ears, Nose, Throat: No hearing loss, sneezing, congestion, runny nose or sore throat. SKIN: No rash or itching, lesions, wounds. CARDIOVASCULAR: No chest pain, chest pressure or chest discomfort, palpitations, edema, orthopnea, syncopal events. RESPIRATORY: No shortness of breath, cough or sputum, wheezing, hemoptysis. GASTROINTESTINAL: No anorexia, nausea, vomiting or diarrhea, abdominal pain, melena, BRBPR. GENITOURINARY: No dysuria, frequency, urgency or retention. NEUROLOGICAL: + Difficulty with ambulation, mild ataxia, general weakness with no specific focal deficit, transient left-sided facial droop reported by EMS but family disagrees and states she looks as her baseline, no headache, dizziness, syncope, paralysis, numbness or tingling in the extremities, focal weakness, change in bowel or bladder control, seizure. MUSCULOSKELETAL: + muscle, back pain, joint pain or stiffness. HEMATOLOGIC: + Easy bleeding or bruising. LYMPHATICS: No enlarged nodes. No history of splenectomy. PSYCHIATRIC: No history of depression or anxiety. ENDOCRINOLOGIC: No reports of sweating, cold or heat intolerance. No polyuria or polydipsia. ALLERGIES: No history of asthma, hives, eczema or rhinitis. Review of Systems ROS Unobtainable: other Details: Patient does not give a reliable review of systems secondary to underlying advancing dementia and encephalopathy with her current presentation. Vital Signs Vital Signs Vital Signs: 04/28/22 18:12 04/28/22 19:35 04/28/22 20:11 Temperature 97.6 F L Temperature Source Temporal Pulse Rate 66 56 L 64 Respiratory Rate 18 19 H 23 H Blood Pressure 173/82 H 177/63 H 208/76 H Blood Pressure Mean 112 101 120 Pulse Ox 96 95 95 Oxygen Delivery Method Room Air Room Air Room Air Weight Weight: 177 lb 14.609 oz Body Mass Index (BMI) 27.0 Physical Exam Narrative Physical Examination: General: Awake, alert, oriented to self and place however she gives the wrong year, wrong month and wrong president which is not her baseline per family present, remains cooperative, seated upright in the ED bed, fatigued appearing, family notes she is certainly more confused than her baseline but does have underlying dementia that seems to have been advancing. Skin: Normal color, normal turgor, no icterus, no cyanosis except occasional staged ecchymoses. HEENT: AT/NC, EOMI, PERRLA, mildly dry MM, no carotid bruits or JVD noted. Lungs: CTA bilaterally, moderate effort, mild decrease BL bases, no rales, ronchi or wheezing. Heart: Currently regular rate and rhythm; no gallop, rub audible. Abdomen: Soft, overweight, NTTP, ND, normal BS, no HSM. Extremities: No cyanosis, no clubbing, mild bilateral lower extremity distal nonpitting edema. Neurological: Patient awake, alert, oriented as noted, cognitive function decreased baseline with underlying dementia that is been advancing however she is not even at her baseline currently per family present and more confused; pupils equally reactive to light and accommodation, cranial nerves grossly normal, moving all 4 extremities, no focal deficits, finger-nose and [id number] appropriate, sensation intact, equivocal Babinski, no obvious facial droop visualized. Psychiatric: Affect appears mildly flat otherwise interacting appropriately, no acute evidence of depressive or anxiety feelings. Results Lab / Micro Data Result Diagrams: 04/28/22 18:18 04/28/22 18:18 Labs: Laboratory Results - last 24 hr 04/28/22 18:18: WBC 6.2, RBC 4.30, Hgb 12.4, Hct 39.0, MCV 90.7, MCH 28.8, MCHC 31.8 L, RDW Std Deviation 45.4 H, RDW Coeff of Dave 13.8, Plt Count 258, MPV 10.3, Immature Gran % (Auto) 0.300, Neut % (Auto) 51.7, Lymph % (Auto) 35.7, Lowndes % (Auto) 9.0, Eos % (Auto) 2.7, Baso % (Auto) 0.6, Absolute Neuts (auto) 3.2, Absolute Lymphs (auto) 2.22, Nucleated RBC % 0 04/28/22 18:18: Sodium 141, Potassium 3.4 L, Chloride 105, Carbon Dioxide 29.0, Anion Gap 7, BUN 14, Creatinine 0.94, Estim Creat Clear Calc 44.94, Est GFR (MDRD) Af Amer 73, Est GFR (MDRD) Non-Af 60, BUN/Creatinine Ratio 14.9, Glucose 122 H, Calcium 9.2, Troponin I High Sens 9 04/28/22 19:48: Urine Color Yellow, Urine Clarity Sl. Cloudy, Urine pH 6.0, Ur Specific Dubois 1.020, Urine Protein Negative, Urine Glucose (UA) Normal, Urine Ketones Negative, Urine Occult Blood 25 H, Urine Nitrite Positive H, Urine Bilirubin Negative, Urine Urobilinogen Normal, Ur Leukocyte Esterase 25 H, Urine RBC 0 SEEN, Urine WBC 5-10 SEEN, Ur Squamous Epith Cells 5-10 SEEN, Urine Bacteria 2+, Urine Mucus 0 SEEN Radiology Impression Brain CT 04/28/22 18:27 IMPRESSION: No acute findings. Microvascular ischemic changes. Atrophy. Electronically Signed: Asha Rhodes MD at 19:54 EST Reading Location ID and State: [place] MD Tel , Service support , Chest X-Ray 04/28/22 18:45 IMPRESSION: No radiographic evidence of acute cardiopulmonary disease. Electronically Signed: Asha Rhodes MD at 19:17 EST Reading Location ID and State: [place] MD Tel , Service support , Assessment & Plan Assessment/Plan (1) Acute UTI: (2) CVA (cerebral vascular accident): PLAN: Plan The patient is an 86 y/o F w/ PMHx: PAF, COPD w/ Allergic rhinitis, HTN, HLD, Chronic BL LE Lymphedema, Dementia unclear type with unclear behavioral disturbance history, Anxiety and Depression who presents to the [facility] ED on 04/28/22 with history of increased confusion noted per family members however the patient's had increased confusion over the last several months with accelerating dementia concerns with niece reporting about 6 days ago that patient had been starting to lean to the right with EMS call today given onset of a left facial droop with no recent fall or head injury however patient does have history of falls which is the reason she is not chronically anticoagulated with history of atrial fibrillation normally using a walker to ambulate prompting family bring her to the ED for evaluation. #1. Increased confusion/encephalopathy above baseline complicated by underlying dementia as noted with transient concern for left facial droop and ataxia concerning for TIA/CVA and/or infectious etiology with acute encephalopathy secondary to #2 potential Acute Complicated UTI versus possibly progressive dementia: Will admit to PCU, will obtain MRI Brain, CTA Head and Neck given appropriate renal function, ECHO, PT/OT/Speech/Nutrition evaluation per protocol. Will allow permissive HTN, maintain on asa, add low-dose statin w/ AM FLP, noted PAF history but high risk falls thus defer anticoagulation, will maintain on aspiration and fall precautions, will obtain magnesium, TSH, FLP, hemoglobin A1c. #2. Possible Acute Complicated Urinary Tract Infection: UA upon ED evaluation remarkable, pending UCx, continue IVFs, monitor I/Os, given notable allergies will start on bactrim w/ transition as able pending sensitivities and speciation. #3. Hypokalemia: Admission K+ 3.4, magnesium level requested, supplementation given, repeat level in AM. #4. Hyperglycemia, mild: Admission glucose 122, hemoglobin A1c pending given acute presentation #1. #5. Chronic dementia unclear type with unclear behavioral disturbance history with concern for accelerating dementia: We will continue patient home donepezil regimen, complicates presentation, therapies and case management consulted for discharge planning as noted. #6. PAF: We will temporarily hold patient home metoprolol regimen given permissive hypertension with presentation, add back once appropriate, not anticoagulated secondary to fall history, continue baby aspirin. #7. Hypertension: As noted we will maintain on permissive hypertension given acute presentation, parent agents per stroke protocol. #8. Hyperlipidemia: Per current list not on regimen, low-dose statin added in the interim given acute presentation #1, FLP in AM. #9. Chronic COPD with allergic rhinitis: Patient is not on any chronic inhalers, as needed albuterol if necessary, we will continue patient home montelukast regimen. #10. Chronic bilateral lower extremity lymphedema: We will place snug Doe wrap with elevation lower extremities #11. Anxiety and depression: We will continue patient on sertraline regimen. #12. DVT prophylaxis: SCDs given noted rash with lovenox. #13. CODE status: Patient HCPOA is her son who is present and living will is currently in place. Discussed CODE status at length including difference between FULL code, DNR-CCA and DNR-CC status. Following discussions about the differences in these status, requested DNR-CCA, no intubation status. Advanced Care Planning Face to Face Time: 16 minutes. Admission Evaluation Time spent evaluating chart, patient history, patient evaluation, care planning and discussion with specialists: 75 minutes. Charges/Coding Visit Charges Inpatient E&M: 25245 Init Hosp L3 Procedures Hospitalists Procedures: 96792 Advncd Care Plan 30 Min
--- NOTE | 2022-04-28 22:38 | ECHOD_ITS ---
Reason For Study: TIA/CVA Procedure This was a 2D Doppler, Color Flow transthoracic echocardiogram. Exam performed portable in patient room. Left Ventricle Normal left ventricle. The estimated ejection fraction is 55-60 %. Right Ventricle Normal right ventricle. Normal systolic function. Atria Normal left atrium. The right atrium is mildly enlarged. Intact atrial septum. Mitral Valve The mitral valve is structurally normal. No prolapse or stenosis seen. Mild (1+) mitral valve insufficiency. Tricuspid Valve Normal tricuspid valve. Aortic Valve Normal aortic valve. Pulmonic Valve The pulmonic valve is not well visualized. Great Vessels Normal aortic root. Pericardium/Pleural No pericardial effusion. Medication Performed a rapid injection of agitated mix of 9 cc saline and 1cc air to assess for atrial septal defect. MMode/2D Measurements & Calculations LVIDd: 4.2 cm IVSd: 0.98 cm Ao root diam: 3.3 cm LVIDs: 2.2 cm LVPWd: 0.89 cm FS: 48.9 % LAV(MOD-sp4): 59.4 ml LVAd ap4: 20.6 cm2 SV(MOD-sp4): 35.0 ml LVLd ap4: 7.9 cm EDV(MOD-sp4): 44.2 ml EDV(sp4-el): 45.3 ml LVAs ap4: 7.7 cm2 LVLs ap4: 5.9 cm ESV(MOD-sp4): 9.2 ml ESV(sp4-el): 8.4 ml EF(MOD-sp4): 79.2 % EF(sp4-el): 81.5 % SV(sp4-el): 36.9 ml LA A4 area: 20.2 cm2 LA dimension(2D): 3.2 cm RA A4 area: 12.5 cm2 Time Measurements MV dec time: 0.25 sec Doppler Measurements & Calculations MV E max frederick: 75.2 cm/sec Lat Peak E' Frederick: 8.2 cm/sec Med Peak E' Frederick: 6.9 cm/sec MV A max frederick: 118.0 cm/sec E/E' lat: 9.2 E/E' med: 11.0 MV E/A: 0.64 MV V2 max: 135.5 cm/sec MV dec slope: 303.7 cm/sec2 Ao V2 max: 169.3 cm/sec MV max P.4 mmHg Ao max P.5 mmHg MV V2 mean: 77.7 cm/sec Ao V2 mean: 117.8 cm/sec MV mean P.7 mmHg Ao mean P.2 mmHg MV V2 VTI: 34.6 cm Ao V2 VTI: 38.7 cm MR max frederick: 633.6 cm/sec PA V2 max: 105.6 cm/sec TR max frederick: 345.4 cm/sec MR max P.6 mmHg PA V2 mean: 71.3 cm/sec TR max P.7 mmHg MR mean frederick: 454.5 cm/sec MR mean P.5 mmHg MR VTI: 206.2 cm ECHO/Echo Complete Interpretation Summary The estimated ejection fraction is 55-60 %. RVSP 47 mmhg No change from previous echo 12/03/2020 Ordering Physician: Isabella Epps Referring Physician: Levon White Performed By: Isadora Elizalde RCS
[2022-04-28] MEDS: Ondansetron 4 MG/2 ML Vial IV (23:04)
[2022-04-28] MEDS: 0.9% Saline Lock 10 ML Syringe IV (23:04)
[2022-04-28] MEDS: 0.9% Normal Saline 1,000 ML 100 ML IV (23:15)
[2022-04-28] MEDS: Montelukast 10 MG Tablet PO (23:18)
[2022-04-28] MEDS: Donepezil HCl 10 MG Tablet PO (23:18)
[2022-04-28] MEDS: Smz/Tmp Ds Tablet 1 TABLET PO (23:18)
[2022-04-28] MEDS: Atorvastatin Calcium 20 MG Tablet PO (23:18)
[2022-04-29] VITALS (12 sets, daily range): BP systolic 133–182; BP diastolic 61–87; PULSE 69–81; RESP 16–20; TEMP 36.4–36.8; O2SAT 90–96; BMI 25.2
[2022-04-29] MEDS: Potassium Chloride Oral Soln 20 MEQ/15 ML UDC 40 MEQ PO (00:15)
[2022-04-29] MEDS: Smz/Tmp Ds Tablet 1 TABLET PO ×3 (00:16→17:13)
[2022-04-29 06:31] LABS: Absolute Lymphocyte Count 1.07 X10^3/uL (0.83-4.51); Absolute Neutrophil Count 5.7 X10^3/uL (2.0-7.7); Basophil# 0.03 X10^3/uL; Basophil% 0.4 % (0-1); Eosinophil# 0.01 X10^3/uL; Eosinophils% 0.1 % (0-5); Hemoglobin 12.1 g/dL (12.0-15.0); Lymphocyte # 1.07 X10^3/ul (0.83-4.51); Lymphocyte % 14.8 % (19-41); Mean Corpuscular Hgb 28.3 pg (27.0-32.0); Mean Corpuscular Volume 91.3 fL (81-99); Mean Platelet Vol. 9.7 fl (6.2-12.0); Monocyte# 0.42 X10^3/uL; Monocyte% 5.8 % (0-10); NRBC Flagged by Analyzer 0 % (0-5); Neutrophil % 78.8 % (47-70); Platelet Count 234 K/mm3 (150-450); RBC Distribution Width CV 13.9 % (11.6-14.6); RBC Distribution Width SD 46.4 fl (35.1-43.9); Red Blood Count 4.27 M/mm3 (4.2-5.4); White Blood Count 7.2 K/mm3 (4.4-11.0)
[2022-04-29 07:17] LABS: ALB/GLOB Ratio 0.9 RATIO (0.9-2.4); AST(SGOT) 15 U/L (15-37); Alanine Aminotransfer ALT/SGPT 10 U/L (13-56); Alkaline Phosphatase 100 U/L (45-117); Anion Gap 6 (5-15); BUN 9 mg/dL (7-18); BUN/Creat Ratio 12.2 RATIO (10-20); Calcium,Total 8.6 mg/dL (8.5-10.1); Chloride 107 mmol/L (98-107); Cholesterol 202 mg/dL (200); Creatinine, Serum 0.74 mg/dL (0.55-1.02); EST Glomerular Filtration Rate 79 mL/min (>60); Est Glom Filt Rate - Afr Amer 96 mL/min (>60); Estimated Creatinine Clearance 42.25 ml/min; Globulin 3.4 g/dL (2.2-4.2); Glucose 111 mg/dL (74-106); High Density Lipoprotein 75 mg/dL; Potassium 3.7 mmol/L (3.5-5.1); Protein, Total 6.4 g/dL (6.4-8.2); Sodium Level 141 mmol/L (136-145); T4 Free Direct 1.08 ng/dL (0.76-1.46); Thyroid Stim Hormone (TSH) 1.87 uIU/mL (0.358-3.74); Triglycerides 100 mg/dL; Very Low Density Lipoprotein 20 mg/dL (5-40)
[2022-04-29 08:05] LABS: Hemoglobin A1c 4.9 % (3.8-5.6)
[2022-04-29] MEDS: Sertraline 50 MG Tablet 25 MG PO (08:21)
[2022-04-29] MEDS: Aspirin E.C. 81 MG Tablet PO (08:22)
[2022-04-29] MEDS: 0.9% Saline Lock 10 ML Syringe IV (11:38)
[2022-04-29] MEDS: LORazepam 2 MG/ML Syringe 1 MG IV (11:38)
--- NOTE | 2022-04-29 12:30 | MRI_ITS ---
EXAM: MR HEAD WITHOUT INTRAVENOUS CONTRAST CLINICAL INDICATION: CVA TECHNIQUE: Multiplanar and multisequence MR images of the brain were obtained without intravenous contrast. This report was created using [employer] report generation technology. COMPARISON: CT head without contrast and CTA head and neck with contrast 04/28/2022. FINDINGS: BRAIN AND EXTRA-AXIAL SPACES: Periventricular white matter T2 FLAIR hyperintensity foci in both cerebral hemispheres are chronic white matter ischemic changes. Focal atrophy in the right frontal lobe with encephalomalacia of the right frontal lobe white matter causing ex vacuo dilatation of the anterior body and frontal horn of the right lateral ventricle. This is presumably from remote injury. No intra- or extra-axial hemorrhage. No intracranial mass or mass effect. Posterior fossa structures are unremarkable. No hydrocephalus. Basal cisterns are patent. No diffusion restriction to suspect acute or subacute ischemic infarct. No remote cortical-based ischemic infarcts. SELLA: Unremarkable. Normal sella turcica, pituitary gland, infundibular stalk, optic chiasm and hypothalamus. AUDITORY SYSTEM: Unremarkable. The internal auditory canals are patent. BONES/JOINTS: Unremarkable. No discrete lytic or blastic abnormalities. SINUSES: Unremarkable as visualized. Clear. MASTOID AIR CELLS: Unremarkable as visualized. Clear. ORBITS: Unremarkable as visualized. Both globes, extraocular muscles, optic nerves and retrobulbar fat appear unremarkable. VASCULATURE: Unremarkable as visualized. Normal flow voids in the major intracranial circulation. MRI/Brain without Contrast IMPRESSION: 1. No MRI evidence of acute or subacute ischemic infarct or acute intracranial abnormality. 2. Chronic white matter ischemic changes in both cerebral hemispheres. 3. Disproportionate focal atrophy of the right frontal lobe with encephalomalacia of the underlying white matter causing ex vacuo dilatation of the anterior body and frontal horn of the right lateral ventricle. This is presumably from remote injury. 4. No significant interval change when compared to the CT head scan of 04/28/2022. Electronically Signed: Armando Gonzalez MD at 13:57 EST ,
--- NOTE | 2022-04-29 13:45 | CASEMGMT ---
LYN GUEVARA Face to Face with patient for initial transition planning/care coordination assessment, patient has dementia, RN PAOLA called son. LYN GUEVARA introduced self and role at [facility]. Son willing to participate in assessment and is able to answer all questions appropriately. Care providers, pharmacy, and demographics verified. Son, Javier, wishes for patient to discharge home with [facility]. [facility] as she has had them in the past and declined list of [facility] agencies. Son states he has no further needs or concerns at this time. CM to follow for discharge planning needs that may arise. PCP: Christopher Specialists: none [facility] Benefit: yes Living Will/HPOA: yes, son Javier Confer LNOK: son, granddaughters Living Arrangements: Patient lives with son who provides care for patient in his single story home. Patient has private duty aides to assist with care. Transportation: son DME/HHC: Patient has shower chair, raised toilet, cane, walker, wheelchair, and grab bars at home. Patient has been to [facility] and [place] in the past. Patient has had [facility] in the past. LYN GUEVARA called [facility] and made referral for nursing and therapy. Awaiting call back with acceptance. Disposition Plan: Patient to discharge home with [facility], family support, and follow-up plans in place. Coco JADE, RN, CM
--- NOTE | 2022-04-29 14:28 | PCM.PN.HOSP ---
Reason for Visit Reason for Visit: Diagnoses Cerebral infarction, unspecified (04/28/22) Urinary tract infection, site not specified (04/28/22) Subjective Subjective Patient seen and examined. She was admitted with a complaint of confusion and concerns for possible left facial droop. She does have dementia. She was admitted to be managed for acute encephalopathy and to rule out stroke. She had no complaints this morning. She did have a flat affect, but was able to answer questions. She denied any headache, chest pain, palpitations, dizziness, nausea, vomiting, dizziness, palpitations, nausea, vomiting, weakness or palpitations. Review of systems is otherwise negative. Objective Data Objective Data Vital Signs: Vital Signs Temp Pulse Resp BP Pulse Ox O2 Del Method O2 Flow Rate 97.9 F 77 16 170/76 H 95 Room Air 2 04/29/22 13:15 04/29/22 13:15 04/29/22 13:15 04/29/22 13:15 04/29/22 13:15 04/29/22 13:15 04/29/22 12:39 Oxygen Flow Rate (L/min) 2 Oxygen Delivery Method Room Air Weight: 166 lb 3.657 oz Body Mass Index (BMI) 25.2 Intake & Output: Intake and Output for Last 24 Hours 04/27/22 04/28/22 04/29/22 23:59 23:59 23:59 Intake Total 1000 / 1000 1680 / 1680 Output Total 850 / 850 Balance 1000 / 1000 830 / 830 Lab / Micro Data Result Diagrams: 04/29/22 05:25 04/29/22 05:25 Labs: Laboratory Results - last 24 hr 04/28/22 18:18: WBC 6.2, RBC 4.30, Hgb 12.4, Hct 39.0, MCV 90.7, MCH 28.8, MCHC 31.8 L, RDW Std Deviation 45.4 H, RDW Coeff of Dave 13.8, Plt Count 258, MPV 10.3, Immature Gran % (Auto) 0.300, Neut % (Auto) 51.7, Lymph % (Auto) 35.7, [place] % (Auto) 9.0, Eos % (Auto) 2.7, Baso % (Auto) 0.6, Absolute Neuts (auto) 3.2, Absolute Lymphs (auto) 2.22, Nucleated RBC % 0 04/28/22 18:18: Sodium 141, Potassium 3.4 L, Chloride 105, Carbon Dioxide 29.0, Anion Gap 7, BUN 14, Creatinine 0.94, Estim Creat Clear Calc 44.94, Est GFR (MDRD) Af Amer 73, Est GFR (MDRD) Non-Af 60, BUN/Creatinine Ratio 14.9, Glucose 122 H, Calcium 9.2, Troponin I High Sens 9 04/28/22 18:18: Magnesium 1.8 04/28/22 19:48: Urine Color Yellow, Urine Clarity Sl. Cloudy, Urine pH 6.0, Ur Specific [place] 1.020, Urine Protein Negative, Urine Glucose (UA) Normal, Urine Ketones Negative, Urine Occult Blood 25 H, Urine Nitrite Positive H, Urine Bilirubin Negative, Urine Urobilinogen Normal, Ur Leukocyte Esterase 25 H, Urine RBC 0 SEEN, Urine WBC 5-10 SEEN, Ur Squamous Epith Cells 5-10 SEEN, Urine Bacteria 2+, Urine Mucus 0 SEEN 04/29/22 05:25: WBC 7.2, RBC 4.27, Hgb 12.1, Hct 39.0, MCV 91.3, MCH 28.3, MCHC 31.0 L, RDW Std Deviation 46.4 H, RDW Coeff of Dave 13.9, Plt Count 234, MPV 9.7, Immature Gran % (Auto) 0.100, Neut % (Auto) 78.8 H, Lymph % (Auto) 14.8 L, [place] % (Auto) 5.8, Eos % (Auto) 0.1, Baso % (Auto) 0.4, Absolute Neuts (auto) 5.7, Absolute Lymphs (auto) 1.07, Nucleated RBC % 0 04/29/22 05:25: Sodium 141, Potassium 3.7, Chloride 107, Carbon Dioxide 28.0, Anion Gap 6, BUN 9, Creatinine 0.74, Estim Creat Clear Calc 42.25, Est GFR (MDRD) Af Amer 96, Est GFR (MDRD) Non-Af 79, BUN/Creatinine Ratio 12.2, Glucose 111 H, Calcium 8.6, Total Bilirubin 0.50, AST 15, ALT 10 L, Alkaline Phosphatase 100, Total Protein 6.4, Albumin 3.0 L, Globulin 3.4, Albumin/Globulin Ratio 0.9, Triglycerides 100, Cholesterol 202 H, LDL Cholesterol 107, VLDL Cholesterol 20, HDL Cholesterol 75, TSH 1.87, Free T4 1.08 04/29/22 05:25: Hemoglobin A1c 4.9 Micro: Microbiology 04/28/22 19:48 Urine, Random Urine Culture - Preliminary GNR lactose environmental 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 Microvascular ischemic changes. Atrophy. Electronically Signed: Asha Rhodes MD at 19:54 EST Reading Location ID and State: [place] / Tel , Service support , Chest X-Ray 04/28/22 18:45 IMPRESSION: No radiographic evidence of acute cardiopulmonary disease. Electronically Signed: Asha Rhodes MD at 19:17 EST Reading Location ID and State: [place] / Tel , Service support , Head/Neck CTA 04/28/22 20:16 IMPRESSION: No acute findings. No demonstrated aneurysm, dissection, high-grade stenosis or occlusion. Multiple thyroid hypodensities consistent with cysts or nodules. Consider nonemergent ultrasound for further evaluation. Electronically Signed: Asha Rhodes MD at 21:09 EST Reading Location ID and State: [place] / Tel , Service support , ADDENDUM: 04/28/222121 IMPRESSION: No acute findings. No demonstrated aneurysm, dissection, high-grade stenosis or occlusion. Multiple thyroid hypodensities consistent with cysts or nodules. Consider nonemergent ultrasound for further evaluation. N.B. : The above Results were Read Back by Asha Rhodes MD to Dr. Lexa MD, and understanding confirmed on 04/28/2022 21:15:31 (ET). Electronically Signed: Asha Rhodes MD at 21:09 EST Reading Location ID and State: [place] Tariq MD Tel , Service support , Echocardiogram 04/28/22 22:38 Interpretation Summary The estimated ejection fraction is 55-60 %. RVSP 47 mmhg No change from previous echo 12/03/2020 Ordering Physician: Isabella Epps Referring Physician: Levon White Performed By: Isadora Elizalde RCS Brain MRI 04/29/22 12:30 IMPRESSION: 1. No MRI evidence of acute or subacute ischemic infarct or acute intracranial abnormality. 2. Chronic white matter ischemic changes in both cerebral hemispheres. 3. Disproportionate focal atrophy of the right frontal lobe with encephalomalacia of the underlying white matter causing ex vacuo dilatation of the anterior body and frontal horn of the right lateral ventricle. This is presumably from remote injury. 4. No significant interval change when compared to the CT head scan of 04/28/2022. Electronically Signed: Armando Gonzalze MD at 13:57 EST , Physical Exam Const alert and no apparent distress Constitutional Narrative: flat affect, has periods of confusion due to dementia Orientation / Consciousness: confused HEENT head/scalp atraumatic, moist oral mucous membranes and oropharynx normal Head and Scalp: normocephalic Mouth: oral and palatal mucosa normal Eyes PERRL, EOMs intact bilaterally and conjunctivae normal Neck no lymphadenopathy, supple and no JVD Resp normal respiratory effort, no retractions, no use of accessory muscles and clear to auscultation bilaterally Cardio regular rate, regular rhythm, S1 normal heart sound, S2 normal heart sound and no murmurs GI normal to inspection, nondistended, normoactive bowel sounds, soft to palpation, non-tender and non-distended Extremity normal to inspection, full ROM and no clubbing, cyanosis or edema Neuro CN's II-XII intact bilaterally, moves all extremities and no focal motor deficits Neuro Narrative: pill rolling motion with resting hand tremor. Flat affect, is confused, but able to answer questions. Psych Psych Narrative: flat affect Assessment & Plan Assessment/Plan (1) Acute confusion: (2) UTI (urinary tract infection): PLAN: Plan #Acute encephalopathy Concern was for stroke so she was admitted to rule out a stroke. CT of the brain showed no acute intracranial pathology. MRI of the brain done today showed no evidence of stroke. Encephalopathy is therefore likely due to UTI. Currently on bactrim due to numerous allergies. Being gently hydrated with IV fluids. PT OT on board. Fall precautions. #Acute UTI: as above. #HYpokalemia: resolved. 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 On donepezil. PT.OT on board. Fall precautions. #Paroxysmal afib: resume metoprolol as MRI negative for stroke. #Hypertension: on metoprolol #Anxiety and depression; on sertraline. DVT prophylaxis: lovenox Total time spent on seeing patient, examining patient, reviewing chart, discussion of plan with nursing and ancillary staff and documentation in EMR: 40 minutes. Charges/Coding Visit Charges Inpatient E&M: 26229 Subs Hosp L2
--- NOTE | 2022-04-29 14:38 | CASEMGMT ---
LYN GUEVARA received call back from Kathy at [facility] and they are able to accept patient with Monday start of care. Kathy will call son Javier to [facility] regarding [facility].
[2022-04-29] MEDS: Metoprolol Tartrate 25 MG Tablet PO ×2 (15:30→21:04)
--- NOTE | 2022-04-29 16:09 | CHAPLAIN ---
Type of Pastoral Visit ___ Initial Visit ___ Follow-up Visit ___ On-call Visit ___ General Patient Visit ___ Spiritual Assessment ___ Family Conference ___ Bereavement ___ Rapid Response ___ Code Blue ___ Other (describe below) Pastoral Care Referral From ___ Patient ___ Family ___ Nurse ___ Physician ___ Appraisal Specialist ___ Pot Room Supervisor ___ Other (describe below) Sacrament/Intervention ___ Active listening ___ Anointing ___ Religion ___ Bereavement ___ Communion ___ Raissa exploration ___ ___ Life review ___ Prayer ___ Reconciliation ___ Sacrament of Sick ___ Supportive presence ___ Wedding ___ Other (describe below) Pastoral Comments patient is sleeping and does not awaken to her name; two attempts separately this afternoon to make this visit; left a calling card
[2022-04-29] MEDS: Donepezil HCl 10 MG Tablet PO (21:04)
[2022-04-29] MEDS: Montelukast 10 MG Tablet PO (21:04)
[2022-04-29] MEDS: Atorvastatin Calcium 20 MG Tablet PO (21:04)
[2022-04-30 03:15] VITALS: BP 148/62; PULSE 62; RESP 18; TEMP 36.6; O2SAT 96
[2022-04-30 05:54] LABS: Absolute Lymphocyte Count 1.67 X10^3/uL (0.83-4.51); Basophil# 0.03 X10^3/uL; Basophil% 0.6 % (0-1); Eosinophil# 0.17 X10^3/uL; Eosinophils% 3.1 % (0-5); Hemoglobin 11.2 g/dL (12.0-15.0); Lymphocyte # 1.67 X10^3/ul (0.83-4.51); Lymphocyte % 30.6 % (19-41); Mean Corpuscular Hgb 29.3 pg (27.0-32.0); Mean Corpuscular Volume 91.6 fL (81-99); Mean Platelet Vol. 10.1 fl (6.2-12.0); Monocyte# 0.54 X10^3/uL; Monocyte% 9.9 % (0-10); NRBC Flagged by Analyzer 0 % (0-5); Neutrophil # 3.03 X10^3/uL (2.7-7.7); Neutrophil % 55.6 % (47-70); Platelet Count 208 K/mm3 (150-450); RBC Distribution Width CV 14.1 % (11.6-14.6); RBC Distribution Width SD 47.4 fl (35.1-43.9); Red Blood Count 3.82 M/mm3 (4.2-5.4); White Blood Count 5.5 K/mm3 (4.4-11.0)
[2022-04-30 06:00] VITALS: BMI 25.5
[2022-04-30 06:12] LABS: BUN 16 mg/dL (7-18); Creatinine, Serum 0.98 mg/dL (0.55-1.02); Estimated Creatinine Clearance 43.11 ml/min; Glucose 87 mg/dL (74-106)
[2022-04-30 06:13] LABS: Anion Gap 7 (5-15); BUN/Creat Ratio 16.4 RATIO (10-20); Calcium,Total 8.5 mg/dL (8.5-10.1); Chloride 109 mmol/L (98-107); EST Glomerular Filtration Rate 58 mL/min (>60); Est Glom Filt Rate - Afr Amer 70 mL/min (>60); Potassium 3.8 mmol/L (3.5-5.1); Sodium Level 142 mmol/L (136-145)
[2022-04-30 08:01] VITALS: O2SAT 93
[2022-04-30] MEDS: Smz/Tmp Ds Tablet 1 TABLET PO (08:25)
[2022-04-30 09:15] VITALS: BP 138/61; PULSE 86; RESP 18; TEMP 36.3; O2SAT 94
[2022-04-30 09:23] VITALS: BP 138/61; PULSE 86
[2022-04-30] MEDS: Metoprolol Tartrate 25 MG Tablet PO (09:23)
[2022-04-30] MEDS: 0.9% Saline Lock 10 ML Syringe IV (09:24)
[2022-04-30] MEDS: Aspirin E.C. 81 MG Tablet PO (09:24)
[2022-04-30] MEDS: Sertraline 50 MG Tablet 25 MG PO (09:24)
--- NOTE | 2022-04-30 11:57 | DS.PCM_ITS ---
Providers Date of Admission: 04/28/22 Date of Discharge: 04/30/22 Primary Care Physician: Dr. Levon White MD Reason For Visit: TIA/CVA,UTI Diagnosis Discharge Diagnosis (1) Acute confusion: Status: Acute Code(s): R41.0 - Disorientation, unspecified (2) UTI (urinary tract infection): Status: Acute Code(s): N39.0 - Urinary tract infection, site not specified Plan #Acute encephalopathy * Concern was for stroke so she was admitted to rule out a stroke. * CT of the brain showed no acute intracranial pathology. MRI of the brain done today showed no evidence of stroke. * Encephalopathy is therefore likely due to UTI. * Currently on bactrim due to numerous allergies. Being gently hydrated with IV fluids. PT OT on board. Fall precautions. * #Acute UTI: as above. #HYpokalemia: resolved. 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 On donepezil. PT.OT on board. Fall precautions. #Paroxysmal afib: resume metoprolol as MRI negative for stroke. #Hypertension: on metoprolol #Anxiety and depression; on sertraline. DVT prophylaxis: lovenox Total time spent on seeing patient, examining patient, reviewing chart, discussion of plan with nursing and ancillary staff and documentation in EMR: 40 minutes. Medications at Discharge Home Medications aspirin 81 mg tablet,delayed release 81 mg PO DAILY Heart Health 04/12/18 nystatin 100,000 unit/gram topical powder 1 applic topical DAILY PRN SKIN UNDER BREASTS 12/06/21 montelukast 10 mg tablet 10 mg PO QHS ALLERGIES #90 tabs 01/11/22 acetaminophen 500 mg tablet 1,000 mg PO Q8 #0 tabs 02/09/22 polyethylene glycol 3350 17 gram/dose oral powder (Miralax) 4 g PO BID PRN constipation #510 grams 03/18/22 metoprolol tartrate 25 mg tablet 25 mg PO BID BLOOD PRESSURE #180 tabs 03/22/22 donepezil 10 mg tablet 10 mg PO QHS #90 tabs 04/15/22 sertraline 25 mg tablet (Zoloft) 25 mg PO DAILY #90 tabs 04/15/22 sulfamethoxazole 800 mg-trimethoprim 160 mg tablet 1 tab PO BIDCM #10 tabs 04/30/22 Hospital Course Operations None Procedures 2-D Echocardiogram Summary of Care Provided Minutes Spent on Discharge: 40 Hospital Course: Patient is an 86-year-old female with past medical history as outlined was admitted through the ED with a complaint of increased confusion and patient noted to be leaning to the right and a left facial droop. Family was concerned that she may have had a stroke. He had a history of falls and was not anticoagulated for A-fib due to the fact that she had recently broken her pelvis from mechanical fall. CT of the brain showed no evidence of stroke. She was admitted and managed to rule out a stroke. She was also found to have UTI and was started on Bactrim on account of numerous drug allergies. MRI of the brain also showed no evidence of a stroke. 2D echo showed EF of 55 to 60% with RVSP of 47 mmHg and no change from previous echo on 12/03/2020. Patient remained stable and was discharged home with home health on 04/30/2022. She is to follow- up with her primary care doctor. She was also discharged with a prescription for p.o. Bactrim to treat UTI. Patient was seen and examined prior to discharge. She had no complaints and had an uneventful night. Review of symptoms otherwise negative. Labs and vitals reviewed. Home medication reviewed and reconciled. Physical Exam Const alert and no apparent distress Constitutional Narrative: flat affect, has periods of confusion due to dementia General Appearance: cooperative and comfortable Orientation / Consciousness: confused HEENT normocephalic, head/scalp atraumatic, hearing grossly normal bilaterally, moist oral mucous membranes and oropharynx normal Mouth: oral and palatal mucosa normal Eyes PERRL, EOMs intact bilaterally and conjunctivae normal Neck no lymphadenopathy, supple and no JVD Resp normal respiratory effort, no retractions, no use of accessory muscles and clear to auscultation bilaterally Cardio regular rate, regular rhythm, S1 normal heart sound, S2 normal heart sound and no murmurs GI normal to inspection, nondistended, normoactive bowel sounds, soft to palpation, non-tender and non-distended Extremity normal to inspection, full ROM and no clubbing, cyanosis or edema Skin no rashes or lesions noted Neuro CN's II-XII intact bilaterally, moves all extremities and no focal motor deficits Neuro Narrative: pill rolling motion with resting hand tremor. Flat affect, is confused, but able to answer questions. Psych Psych Narrative: flat affect Weight / BMI Weight Weight: 168 lb 3.403 oz Body Mass Index (BMI) 25.5 ABG / Lab / Microbiology Data Result Diagrams: 04/30/22 05:20 04/30/22 05:20 Laboratory: Laboratory Results - last 24 hr 04/30/22 05:20: WBC 5.5, RBC 3.82 L, Hgb 11.2 L, Hct 35.0 L, MCV 91.6, MCH 29.3, MCHC 32.0, RDW Std Deviation 47.4 H, RDW Coeff of Dave 14.1, Plt Count 208, MPV 10.1, Immature Gran % (Auto) 0.200, Neut % (Auto) 55.6, Lymph % (Auto) 30.6, [place] % (Auto) 9.9, Eos % (Auto) 3.1, Baso % (Auto) 0.6, Absolute Neuts (auto) 3.0, Absolute Lymphs (auto) 1.67, Nucleated RBC % 0 04/30/22 05:20: Sodium 142, Potassium 3.8, Chloride 109 H, Carbon Dioxide 26.0, Anion Gap 7, BUN 16, Creatinine 0.98, Estim Creat Clear Calc 43.11, Est GFR (MDRD) Af Amer 70, Est GFR (MDRD) Non-Af 58 L, BUN/Creatinine Ratio 16.4, Glucose 87, Calcium 8.5 Microbiology: Microbiology 04/28/22 19:48 Urine, Random Urine Culture - Final Escherichia coli Radiography Diagnostic Testing: Radiology Impression Echocardiogram 04/28/22 22:38 Interpretation Summary The estimated ejection fraction is 55-60 %. RVSP 47 mmhg No change from previous echo 12/03/2020 Ordering Physician: Isabella Epps Referring Physician: Levon White Performed By: Isadora Elizalde RCS Brain MRI 04/29/22 12:30 IMPRESSION: 1. No MRI evidence of acute or subacute ischemic infarct or acute intracranial abnormality. 2. Chronic white matter ischemic changes in both cerebral hemispheres. 3. Disproportionate focal atrophy of the right frontal lobe with encephalomalacia of the underlying white matter causing ex vacuo dilatation of the anterior body and frontal horn of the right lateral ventricle. This is presumably from remote injury. 4. No significant interval change when compared to the CT head scan of 04/28/2022. Electronically Signed: Armando Gonzalez MD at 13:57 EST , D/C Instructions Discharge Diet: Low fat / Low cholesterol Discharge Activity: Return to Normal Activity Weight Bearing Status: Weight bearing as tolerated Call your doctor if you observe: Fever of 101 or Higher, Shortness of breath, Swelling in the ankles and Increased palpitations (irregular heartbeat) Meaningful Use Info Meaningful Use Diagnoses (Choose all that apply): None applicable Discharge Plan Admission Admit Date/Time: 04/28/22 20:08 Primary Reason for Your Visit: UTI, encephalopathy Attending Provider: Letha Pelletier Primary Care Provider: Levon White Consulting Providers: Isabella Epps Instructions Patient Instructions: Urinary Tract Infections in Women Discharge Orders/Prescriptions Prescriptions: New sulfamethoxazole-trimethoprim 800-160 mg Tablet 1 tab PO BIDCM Qty: 10 0RF Continued donepezil 10 mg tablet 10 mg PO QHS Qty: 90 3RF sertraline [Zoloft] 25 mg tablet 25 mg PO DAILY Qty: 90 3RF aspirin 81 MG tablet 81 mg PO DAILY nystatin 100,000 unit/gram powder 1 applic topical DAILY PRN (Reason: SKIN UNDER BREASTS) acetaminophen 500 mg Tablet 1,000 mg PO Q8 Qty: 0 0RF montelukast 10 mg tablet 10 mg PO QHS Qty: 90 3RF polyethylene glycol 3350 [Miralax] 17 gram/dose powder 4 g PO BID PRN (Reason: constipation) Qty: 510 1RF metoprolol tartrate 25 mg tablet 25 mg PO BID Qty: 180 3RF Referrals / Follow Up: Levon White MD [Primary Care Provider] - Within 2 Weeks Disposition Disposition (needs filled in before D/C Order can be placed): Home Health Service Charges/Coding Visit Charges Inpatient E&M: 27082 Disch Hosp >30min
--- NOTE | 2022-04-30 12:07 | NURSING ---
I spoke with Janel with [facility] to inform her that pt is being d/c today. I also faxed over the d/c instructions.
[2022-04-30 15:15] VITALS: BP 149/64; PULSE 72; RESP 16; TEMP 36.4; O2SAT 93
[2022-04-30 16:15] VITALS: BP 166/68; PULSE 68; RESP 16; TEMP 36.4; O2SAT 95
== END 2022-04-30 16:17 | disposition home health service (06) | DRG 690 ==
LOC: ED 20:20 → PCU 20:36
PROVIDERS: Admitting Provider Family Medicine; Emergency Provider Emergency Medicine; PCP Internal Medicine; Visit Provider Student in an Organized Health Care Education/Training Program
DX: N39.0 Urinary tract infection, site not specified (principal); G93.49 Other encephalopathy; I47.20 Ventricular tachycardia, unspecified; I27.21 Secondary pulmonary arterial hypertension; F02.80 Dementia in other diseases classified elsewhere, unspecified severity, without behavioral disturbance, psychotic disturbance, mood disturbance, and anxiety; G20 Parkinson's disease; I48.0 Paroxysmal atrial fibrillation; J44.9 Chronic obstructive pulmonary disease, unspecified; E78.5 Hyperlipidemia, unspecified; E87.6 Hypokalemia; J30.9 Allergic rhinitis, unspecified; I10 Essential (primary) hypertension; F41.9 Anxiety disorder, unspecified; I89.0 Lymphedema, not elsewhere classified; F32.A Depression, unspecified; R73.9 Hyperglycemia, unspecified; Z66 Do not resuscitate; Z91.81 History of falling; Z79.82 Long term (current) use of aspirin; Z79.02 Long term (current) use of antithrombotics/antiplatelets; Z79.899 Other long term (current) drug therapy
CPT/HCPCS: 36415; 70450; 70496; 70498; 70551; 71045; 80048; 80053; 80061; 81001; 83036; 83735; 84439; 84443; 84484; 85025; 87077; 87086; 87088; 87186; 92610; 93005; 93306; 94668; 94762; 97116; 97162; 97166; 97530; 97535; 97802; 99285; J7030; P9612; Q9967; A4216; J2405

== ENCOUNTER → 2022-05-19 | Outpatient (CLI) | payer MEDICARE, OTHER, SELFPAY ==
[2022-05-19 13:24] LABS: Bacteria 0 SEEN /hpf (None Seen); Red Blood Cells-Urine 0 SEEN /hpf (0-5)
[2022-05-19 15:49] LABS: Color, Urine Yellow (Yellow); Glucose, Dipstick Normal (Normal); Ketone-Dipstick 5 mg/dl (Negative); Leukocyte Esterase-Dipstick 100 /ul (Negative); Nitrite-Dipstick Negative (Negative); Occult Blood-Urine 25 /ul (Negative); Protein-Dipstick 30 mg/dl (Negative); Specific Gravity, Urine 1.025 (1.002-1.030); Urine Bilirubin Dipstick Negative (Negative); Urine Clarity Clear (Clear); Urine Urobilinogen 1 mg/dl (Normal)
[2022-05-19 16:44] LABS: Calcium Oxalate Crystals Ur RARE /hpf (<or=2+); Mucous, Urine 1+ /hpf (<or=2+); Squamous Epithelial Cells - UA 5-10 SEEN /hpf (5-10); White Blood Cells 5-10 SEEN /hpf (0-5)
== END | disposition home or self-care (01) ==
PROVIDERS: PCP Internal Medicine; Visit Provider Nurse Practitioner Family
DX: R53.81 Other malaise (principal); N30.00 Acute cystitis without hematuria
CPT/HCPCS: 81001; 87077; 87086; 87088; 87186

== ENCOUNTER 2022-05-31 08:15 | Emergency (ER) | payer MEDICARE, OTHER, SELFPAY ==
[2022-05-31] VITALS (8 sets, daily range): BP systolic 149–183; BP diastolic 66–98; PULSE 61–87; RESP 20–30; TEMP 36.3–36.6; O2SAT 91–97; BMI 27.3
--- NOTE | 2022-05-31 08:56 | EKG12_ITS ---
Test Reason : FATIGUE Blood Pressure : / mmHG Vent. Rate : 063 BPM Atrial Rate : 063 BPM P-R Int : 182 ms QRS Dur : 082 ms QT Int : 444 ms P-R-T Axes : 041 024 029 degrees QTc Int : 454 ms Normal sinus rhythm Normal ECG Confirmed by CECILIA LI, VESTA ([id number]), communications editor SEAN WILDER ([id number]) on 06/06/2022 6:50:42 AM Referred By: Confirmed By:LUH BROOKS MD
--- NOTE | 2022-05-31 08:58 | EDS_ITS ---
HPI History of Present Illness Chief Complaint: Fatigue Informant: patient and family Onset/Context/Timing Onset: Today and Yesterday Context: Gradual Onset Timing: Continuous Current Severity: Mild Maximum Severity: Mild Narrative Narrative: 86-year-old female history of A-fib and COPD. Family states that she has had some mild shortness of breath and wheezing. She has had nausea vomiting x2 today. Today they thought she looked cool and clammy. Said her pulse ox was only 85% at home on room air. No one else at home has been ill. She denies any chest pain. She has had some diarrhea and is currently on antibiotic for UTI. Was reportedly admitted to the hospital a month ago or so for a UTI. 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 Lung nodule seen on imaging study Obesity Osteoporosis Paroxysmal atrial fibrillation Pulmonary hypertension Secondary pulmonary arterial hypertension V tach Home Medications aspirin 81 mg tablet,delayed release 81 mg PO DAILY Heart Health 04/12/18 [History Last Taken 01/18/22] nystatin 100,000 unit/gram topical powder 1 applic topical DAILY PRN SKIN UNDER BREASTS 12/06/21 [History Last Taken 01/18/22] montelukast 10 mg tablet 10 mg PO QHS ALLERGIES #90 tabs 01/11/22 [Rx Last Taken 01/17/22] acetaminophen 500 mg tablet 1,000 mg PO Q8 #0 tabs 02/09/22 [Rx Last Taken Unknown] polyethylene glycol 3350 17 gram/dose oral powder (Miralax) 4 g PO BID PRN constipation #510 grams 03/18/22 [Rx Last Taken Unknown] metoprolol tartrate 25 mg tablet 25 mg PO BID BLOOD PRESSURE #180 tabs 03/22/22 [Rx Last Taken Unknown] donepezil 10 mg tablet 10 mg PO QHS #90 tabs 04/15/22 [Rx Last Taken Unknown] sertraline 25 mg tablet (Zoloft) 25 mg PO DAILY #90 tabs 04/15/22 [Rx Last Taken Unknown] buspirone 5 mg tablet 5 mg PO BID #60 tabs 05/19/22 [Rx Last Taken Unknown] Allergy/AdvReac Type Severity Reaction Status Date / Time amoxicillin Allergy Rash Verified 05/31/22 08:18 cefdinir Allergy Rash Verified 05/31/22 08:18 clavulanic acid Allergy Rash Verified 05/31/22 08:18 [From Augmentin] enoxaparin [From Lovenox] Allergy Rash Verified 05/31/22 08:18 heparin Allergy Rash Verified 05/31/22 08:18 levofloxacin [From Levaquin] Allergy Rash Verified 05/31/22 08:18 antibiotic Allergy rash Uncoded 05/31/22 08:18 Family History Father Cancer Mother Hypertension Dementia Surgical History H/O basal cell carcinoma excision History of vein stripping Social History household members: family and other details: Lives with son. Smoking Status: Never smoker alcohol intake: never substance use type: does not use ROS ROS ED ROS Narrative Cough. Recent UTI. Diarrhea on antibiotics. Review of Systems ROS Unobtainable: Denies due to encephalopathy Constitutional Constitutional ED: Reports chills; Denies fever(s) Eyes Eyes: Denies blurry vision ENT ENT ED: Denies ear pain or rhinorrhea Cardiovascular Cardiovascular: Denies chest pain Respiratory/Chest Respiratory/Chest: Reports cough Gastrointestinal Gastrointestinal: Reports diarrhea, nausea and vomiting; Denies abdominal pain, constipation or melena Genitourinary Genitourinary ED: Denies dysuria or hematuria Musculoskeletal Musculoskeletal: Denies arthralgias Integumentary Denies abscess Neurologic Neurologic: Denies headache(s) Psychiatric Psychiatric: Denies anxiety Endocrine Endocrinology: Denies cold intolerance Hematologic/Lymphatic Hematologic/Lymphatic: Reports none Allergic/Immunologic Allergic/Immunologic ED: Denies mouth swelling or tongue swelling EXAM Physical Exam Narrative Exam Narrative: 86-year-old female no acute distress. Vital signs are stable afebrile. Pulse ox is 97% on room air no hypoxia. H EENT exam mild dry mucous membranes. Otherwise unremarkable. No facial droop. Pupils round reactive light. Neck nontender. No JVD. No lymphadenopathy. Lungs clear to auscultation bilaterally. Heart regular rhythm rate about 65 no murmur. Chest wall nontender. Abdomen soft nontender. Normal bowel sounds no peritoneal signs. Back nontender. Moving all 4 extremities. Nontender. No significant edema. Neurologically she is awake and alert with no focal motor deficits. Const Vital Signs: 05/31/22 08:16 05/31/22 08:17 05/31/22 08:31 Temperature 98 F 98 F Temperature Source Temporal Temporal Pulse Rate 66 66 Respiratory Rate 20 H 20 H Respiratory Effort Normal Non-Labored Respiratory Pattern Normal Blood Pressure 149/66 H 149/66 H Blood Pressure Mean 93 93 Pulse Ox 97 92 Oxygen Delivery Method Room Air Room Air 05/31/22 09:13 05/31/22 11:00 05/31/22 11:00 Temperature 97.9 F Temperature Source Oral Pulse Rate 66 70 67 Respiratory Rate 29 H 28 H 23 H Respiratory Effort Respiratory Pattern Blood Pressure 150/69 H 183/84 H 183/84 H Blood Pressure Mean 96 117 117 Pulse Ox 92 91 91 Oxygen Delivery Method Room Air Room Air Room Air 05/31/22 11:27 05/31/22 12:38 05/31/22 13:40 Temperature 97.3 F L 97.4 F L Temperature Source Temporal Temporal Pulse Rate 87 61 66 Respiratory Rate 25 H 30 H Respiratory Effort Respiratory Pattern Blood Pressure 164/69 H 170/98 H Blood Pressure Mean 100 122 Pulse Ox 92 94 93 Oxygen Delivery Method Room Air Room Air Room Air 05/31/22 13:40 Temperature Temperature Source Pulse Rate 64 Respiratory Rate 30 H Respiratory Effort Respiratory Pattern Blood Pressure 170/98 H Blood Pressure Mean 122 Pulse Ox 93 Oxygen Delivery Method Room Air Positive well nourished and well developed; Negative for obese, cachectic, contractures or unkempt General Appearance ED: well developed and NAD; Negative for unkempt, cachectic, contractures, cyanotic or diaphoretic Nutritional Appearance: Negative for cachectic or obese HEENT Reports dry mucous membranes; Denies moist mucous membranes Negative for trauma or tenderness Mouth ED: Yes dry mucous membranes Mouth: dry mucous membranes Eyes PERRL and EOMs intact bilaterally General Eye ED: Negative for pale conjunctiva or scleral icterus Neck no lymphadenopathy, supple and no JVD General: Negative for tenderness Lymph Lymphatic: Negative for other Chest Wall inspection of chest normal and palpation of chest normal Resp normal respiratory effort and clear to auscultation bilaterally Effort and Inspection: Negative for retractions Auscultation: Negative for rales or rhonchi Cardio regular rate, regular rhythm, S1 normal heart sound, S2 normal heart sound and no murmurs GI normal to inspection, nondistended, normoactive bowel sounds, non-tender, non- distended and no masses; Negative for hepatosplenomegaly Inspection: Negative for abdominal distention Auscultation: normoactive bowel sounds Palpation: soft; Negative for tender or guarding Back/Spine no CVA tenderness General Back: Negative for CVA tenderness Cervical Spine: Negative for cervical spine tenderness Thoracic Spine / Upper Back: Negative for thoracic spinal tenderness Lumbar Spine / Lower Back: Negative for lumbar spinal tenderness Extremity normal to inspection General Extremety ED: Negative for edema or tenderness General Extremity: Negative for edema Neuro oriented x3 and CN's II-XII intact bilaterally Sensorium / Orientation: alert Motor Exam: strength 5/5 throughout Psych mental status grossly normal Appearance: Negative for unkempt Attitude: No agitated Mood & Affect: Negative for depressed, anxious or tearful Skin no rashes or lesions noted and no wounds Rashes: No rashes noted Trauma: Negative for abrasion Wounds: Negative for wounds noted MDM MDM MDM Narrative Medical decision making narrative: 86-year-old with a current UTI on antibiotics presents with cough, diarrhea and shortness of breath. Family states she was weak at home. She will be treated with a liter normal saline because clinically looks dehydrated. She will be worked up for potential infections. Repeat exam at 10:35 AM patient doing well. I have gone over her labs, x-ray and EKG with her and the family just awaiting the formal final urinalysis. Clinically she is feeling well. Her vital signs are stable. Spoke with family outside the room and they are concerned that she is getting weaker. They are having trouble taking care of her at home. They had asked if she could be admitted. She is supposed to be admitted to a half-way on Monday. I will get our social services designee involved to see if we could transfer potentially from here to the half-way or she will be admitted for failure to thrive, generalized weakness and unable to ambulate. groundskeeping maintenance worker was able to contact the half-way the patient was post to be admitted to in 3 days. They are able to accept her now and we will transfer her from here to there to be admitted. History & Record Review Discussion w/independent historian: Patient and Family Lab Data Attestation: I reviewed the patient's lab results. Lab results narrative: CBC normal. White count of 10. H&H 12.9 and 36. Platelets 224. Electrolytes unremarkable gap of 3. Normal BUN of 14 creatinine 1. Glucose 125. Liver enzymes normal. Lactic acid normal at 1.4 Urinalysis shows 10-5 white cells. 0 red cells. 2+ bacteria. There is 5-10 epithelial cells consistent with contamination. No nitrites. Patient is currently already on an antibiotic. We will add a urine culture. Labs: Laboratory Results - last 24 hr 05/31/22 05/31/22 05/31/22 09:09 09:09 09:09 WBC 10.0 RBC 4.37 Hgb 12.9 Hct 39.6 MCV 90.6 MCH 29.5 MCHC 32.6 RDW Std Deviation 47.0 H RDW Coeff of Dave 14.1 Plt Count 224 MPV 9.9 Immature Gran % (Auto) 0.400 Neut % (Auto) 85.3 H Lymph % (Auto) 5.4 L [place] % (Auto) 6.9 Eos % (Auto) 1.8 Baso % (Auto) 0.2 Absolute Neuts (auto) 8.5 H Absolute Lymphs (auto) 0.54 L Nucleated RBC % 0 Differential Comment SCANNED Sodium 136 Potassium 4.1 Chloride 103 Carbon Dioxide 30.0 Anion Gap 3 L BUN 14 Creatinine 1.00 Estim Creat Clear Calc 42.25 Est GFR (MDRD) Af Amer 68 Est GFR (MDRD) Non-Af 56 L BUN/Creatinine Ratio 14.0 Glucose 125 H Lactic Acid 1.4 Calcium 8.8 Total Bilirubin 0.80 AST 14 L ALT 12 L Alkaline Phosphatase 97 Troponin I High Sens 251 H* Total Protein 7.0 Albumin 3.1 L Globulin 3.9 Albumin/Globulin Ratio 0.8 L Urine Color Urine Clarity Urine pH Ur Specific [place] Urine Protein Urine Glucose (UA) Urine Ketones Urine Occult Blood Urine Nitrite Urine Bilirubin Urine Urobilinogen Ur Leukocyte Esterase Urine RBC Urine WBC Ur Squamous Epith Cells Urine Bacteria Urine Mucus Urine Yeast 03/28/23 09:22 WBC RBC Hgb Hct MCV MCH MCHC RDW Std Deviation RDW Coeff of Dave Plt Count MPV Immature Gran % (Auto) Neut % (Auto) Lymph % (Auto) [place] % (Auto) Eos % (Auto) Baso % (Auto) Absolute Neuts (auto) Absolute Lymphs (auto) Nucleated RBC % Differential Comment Sodium Potassium Chloride Carbon Dioxide Anion Gap BUN Creatinine Estim Creat Clear Calc Est GFR (MDRD) Af Amer Est GFR (MDRD) Non-Af BUN/Creatinine Ratio Glucose Lactic Acid Calcium Total Bilirubin AST ALT Alkaline Phosphatase Troponin I High Sens Total Protein Albumin Globulin Albumin/Globulin Ratio Urine Color Yellow Urine Clarity Cloudy Urine pH 6.0 Ur Specific [place] 1.020 Urine Protein 30 H Urine Glucose (UA) Normal Urine Ketones 5 H Urine Occult Blood 50 H Urine Nitrite Negative Urine Bilirubin Negative Urine Urobilinogen 1 H Ur Leukocyte Esterase 500 H Urine RBC 0-5 SEEN Urine WBC 10-25 SEEN Ur Squamous Epith Cells 5-10 SEEN Urine Bacteria 2+ Urine Mucus 0 SEEN Urine Yeast 1+ Radiography Chest X-Ray - ED: 1 View, Read by ED Physician, Heart, Lungs, Mediastinum, Bony Structures, No Acute Disease and Chronic Changes Diagnostic Testing: Clinical Impression(s) from Imaging Studies Chest X-Ray 05/31/22 10:27 IMPRESSION: Hyperinflation. Stable scarring as described. Electronically Signed: Von Branham MD at 11:07 EDT Reading Location ID and State: [address] [place] [address] , Service support , Chest x-ray, portable, single view, interpreted by myself shows chronic changes no acute process. No infiltrate. No significant effusions. Rhythm Strip Rhythm Strip: Sinus Rhythm Rate: 63 Ectopy: None EKG Initial EKG: Attestation: I personally reviewed and interpreted this EKG as follows: Interpretation: Sinus Rhythm and No Acute Injury Pattern Comments: Normal sinus rhythm rate of 63 no acute signs of PA, ischemia or dysrhythmia change from prior EKG from April. Prior EKG tracings: available for review Prior: Unchanged Management Discussion w/another healthcare provider: groundskeeping maintenance worker/Case management Discharge Plan Triage Chief Complaint: Fatigue ED Provider: Sarath Downing Dx/Rx/DC Orders Clinical Impression: Generalized weakness, Adult failure to thrive, Unable to ambulate Instructions: ED Weakness (Uncertain Cause) Prescriptions: No Action donepezil 10 mg tablet 10 mg PO QHS Qty: 90 3RF sertraline [Zoloft] 25 mg tablet 25 mg PO DAILY Qty: 90 3RF buspirone 5 mg tablet 5 mg PO BID Qty: 60 1RF aspirin 81 MG tablet 81 mg PO DAILY nystatin 100,000 unit/gram powder 1 applic topical DAILY PRN (Reason: SKIN UNDER BREASTS) acetaminophen 500 mg Tablet 1,000 mg PO Q8 Qty: 0 0RF montelukast 10 mg tablet 10 mg PO QHS Qty: 90 3RF polyethylene glycol 3350 [Miralax] 17 gram/dose powder 4 g PO BID PRN (Reason: constipation) Qty: 510 1RF metoprolol tartrate 25 mg tablet 25 mg PO BID Qty: 180 3RF Primary Care Provider: Levon White Referrals: Levon White MD [Primary Care Provider] - As Needed Activity Restrictions/Additional Instructions: Patient to be admitted to the extended care facility in [place]. She is medically cleared. The extended care facility should evaluate her for physical therapy due to her inability to ambulate and generalized weakness. Disposition Disposition: Home, Self Care
[2022-05-31 09:19] LABS: Absolute Lymphocyte Count 0.54 X10^3/uL (0.83-4.51); Absolute Neutrophil Count 8.5 X10^3/uL (2.0-7.7); Basophil# 0.02 X10^3/uL; Basophil% 0.2 % (0-1); Differential Indicated SCAN CRITERIA MET; Eosinophil# 0.18 X10^3/uL; Eosinophils% 1.8 % (0-5); Hematocrit 39.6 % (37-47); Hemoglobin 12.9 g/dL (12.0-15.0); Lymphocyte # 0.54 X10^3/ul (0.83-4.51); Lymphocyte % 5.4 % (19-41); Mean Corp Hgb Conc 32.6 g/dL (32-36); Mean Corpuscular Hgb 29.5 pg (27.0-32.0); Mean Corpuscular Volume 90.6 fL (81-99); Mean Platelet Vol. 9.9 fl (6.2-12.0); Monocyte# 0.69 X10^3/uL; Monocyte% 6.9 % (0-10); NRBC Flagged by Analyzer 0 % (0-5); Neutrophil # 8.54 X10^3/uL (2.7-7.7); Neutrophil % 85.3 % (47-70); POSITIVE DIFFERENTIAL YES; Platelet Count 224 K/mm3 (150-450); RBC Distribution Width CV 14.1 % (11.6-14.6); Red Blood Count 4.37 M/mm3 (4.2-5.4)
[2022-05-31] MEDS: 0.9% Normal Saline 1,000 ML 1000 ML IV (09:23)
[2022-05-31 09:36] LABS: Differential Comment SCANNED
[2022-05-31 09:39] LABS: Lactic Acid 1.4 mmol/L (0.4-1.9)
[2022-05-31 09:41] LABS: ALB/GLOB Ratio 0.8 RATIO (0.9-2.4); AST(SGOT) 14 U/L (15-37); Alanine Aminotransfer ALT/SGPT 12 U/L (13-56); Albumin, Serum 3.1 g/dL (3.2-5.0); Alkaline Phosphatase 97 U/L (45-117); Anion Gap 3 (5-15); BUN 14 mg/dL (7-18); Calcium,Total 8.8 mg/dL (8.5-10.1); Chloride 103 mmol/L (98-107); EST Glomerular Filtration Rate 56 mL/min (>60); Est Glom Filt Rate - Afr Amer 68 mL/min (>60); Estimated Creatinine Clearance 42.25 ml/min; Globulin 3.9 g/dL (2.2-4.2); Glucose 125 mg/dL (74-106); Potassium 4.1 mmol/L (3.5-5.1); Sodium Level 136 mmol/L (136-145); Troponin-I HS 251 pg/mL (3.0-54.0)
[2022-05-31 10:02] LABS: Mucous, Urine 0 SEEN /hpf (<or=2+)
[2022-05-31 10:18] LABS: Color, Urine Yellow (Yellow); Glucose, Dipstick Normal (Normal); Ketone-Dipstick 5 mg/dl (Negative); Leukocyte Esterase-Dipstick 500 /ul (Negative); Nitrite-Dipstick Negative (Negative); Occult Blood-Urine 50 /ul (Negative); Protein-Dipstick 30 mg/dl (Negative); Urine Bilirubin Dipstick Negative (Negative); Urine Clarity Cloudy (Clear); Urine Urobilinogen 1 mg/dl (Normal)
--- NOTE | 2022-05-31 10:27 | RAD_ITS ---
STUDY: X-RAY CHEST REASON FOR EXAM: Female, 86 years old. Cough, shortness of breath and wheezing. TECHNIQUE: Single AP portable view of the chest. COMPARISON: Comparison is made with prior study dated December 26, 2022. FINDINGS: EKG electrodes are seen. Hyperinflation. Stable increased markings at the lung bases rales at the right lung apex suggestive of scarring. There is no demonstrated pleural abnormality. Normal size heart. Normal mediastinum and yanni. Normal visualized pulmonary arteries. There is atherosclerotic calcification of the aortic arch with tortuosity. Normal visualized thoracic spine. There is degenerative osteoarthritis of the bilateral shoulders. There is no demonstrated abnormality of the visualized soft tissue structures of the upper abdomen. RAD/Chest 1 View (Portable) IMPRESSION: Hyperinflation. Stable scarring as described. Electronically Signed: oVn Branham MD at 11:07 EDT ,
[2022-05-31 10:39] LABS: Bacteria 2+ /hpf (None Seen); Red Blood Cells-Urine 0-5 SEEN /hpf (0-5); Squamous Epithelial Cells - UA 5-10 SEEN /hpf (5-10); White Blood Cells 10-25 SEEN /hpf (0-5); Yeast-Urine 1+ /hpf (None Seen)
--- NOTE | 2022-05-31 12:48 | CM.ED ---
Social Work - ED Reason for Consult: Discharge planning - possible NF placement Referral Source: Dr. Downing Spoke with Dr. Downing who reports family present with patient in the ED are reporting that patient is slated to admit to a NF on Monday06.03.2022, but that the family is expressing difficulty in maintaining care for patient currently. Patient is reported to have increased weakness. 1220 - Met with patient, son Jay , and another family member named Sandy in the room. Introduced to self and role. Patient acknowledges to this wrier plan for NF later this week. Patient does appear to have some confusion during conversation, as evidenced by telling this va underwriter that patient lives alone, but Bill reports patient has lived with Jay for the last 4.5 years. Patient was aware however of recent hospitalization, just off a bit on timeframe thinking it was last week, but really closer to a month ago. Bill reports patient was slated to admit to [facility] on 06.03.22, private pay. Bill reports patient was just recently discharged from [facility] services but since discharge from [facility] has continued to be more weak, and today took 3 people to help patient to the car. Son reports patient has a history of [facility] and [facility] in the last year. Educated that based on conversation with the physician, placement at the NF may be appropriate from the ED if can be facilitated. 1245 - Due to referral being in progress for this patient, did not use [facility], but called [facility], and left message for banquet director, Princess Stone, to call this va underwriter back. Need to discuss if there is a bed today, whether PASRR has been done, and whether orders are in place. PLAN: Pending NF placement, but await response from [facility]. -KEENAN Bruno, PUBLIC SAFETY DISPATCHER
--- NOTE | 2022-05-31 14:33 | ED.RN ---
THIS RN CALLED REPORT TO [facility] IN [place]. REPORT TAKEN BY LYN TORRES AT 1523.
--- NOTE | 2022-05-31 14:51 | CM.ED ---
Social Work - ED Received call from Princess at [facility] who confirms had been working with family on placement. Updated to patient's current situation in the ED, and that physician identified no reason for inpatient admission. Discussed with Princess Medicare Waiver for 3 day inpatient stay, and having patient come to the with orders for skilled therapy to evaluate. Princess reports patient can be accepted. Princess reports has PASRR almost completed, due to original plan to admit from community. Princess agreed to complete PASRR. Princess called and PASRR complete. Patient can admit today. Updated Ranjana Menon-health record technician, patient and family. Doctor will order therapy evaluation at the . Educated family that skilled therapy is being ordered for eval, and dependent on outcome of evaluation will be dependent on how long patient can receive skilled services vs. private pay. Family expressed understanding. Faxed orders to [facility] to [phone]. Provided Ranjana RN with nurse to nurse number for report. No other services requested or indicated. Plan: [facility], order for skilled therapy, and PASRR complete per [facility] admissions. -KEENAN Bruno, COMMUNICATIONS PLANNER
== END 2022-05-31 14:46 | disposition skilled nursing facility (03) ==
PROVIDERS: Emergency Provider Emergency Medicine; PCP Internal Medicine; Visit Provider Emergency Medicine
DX: R53.1 Weakness (principal); J44.9 Chronic obstructive pulmonary disease, unspecified; N39.0 Urinary tract infection, site not specified; R19.7 Diarrhea, unspecified; I10 Essential (primary) hypertension; R62.7 Adult failure to thrive; R11.2 Nausea with vomiting, unspecified; Z79.899 Other long term (current) drug therapy
CPT/HCPCS: 71045; 80053; 81001; 83605; 84484; 85025; 87086; 87088; 87428; 93005; 96360; 96361; 99283; J7030; A4216

== ENCOUNTER 2022-11-19 14:16 | Inpatient (IN) | payer MEDICARE, OTHER, SELFPAY ==
[2022-11-19] VITALS (18 sets, daily range): BP systolic 124–179; BP diastolic 62–80; PULSE 68–104; RESP 8–94; TEMP 36.1–36.6; O2SAT 86–97; BMI 26.0; BMI 24.6
--- NOTE | 2022-11-19 14:41 | EKG12_ITS ---
Test Reason : SOB Blood Pressure : / mmHG Vent. Rate : 098 BPM Atrial Rate : 098 BPM P-R Int : 166 ms QRS Dur : 078 ms QT Int : 356 ms P-R-T Axes : 066 015 004 degrees QTc Int : 454 ms Sinus rhythm with Premature atrial complexes with Aberrant conduction Otherwise normal ECG Confirmed by CECILIA LI, VESTA ([id number]), movie editor SEAN WILDER ([id number]) on 11/22/2022 11:46:38 AM Referred By: Confirmed By:LUH BROOKS MD
[2022-11-19] MEDS: Ipratropium/Albuterol Sulfate 3 ML AMPUL.NEB INHALATION ×3 (14:52→22:19)
[2022-11-19] MEDS: Albuterol 2.5 MG/3 ML VIAL.NEB. INHALATION ×3 (14:52)
[2022-11-19] MEDS: MethylPREDNISolone 125 MG/2 ML Vial IV (14:56)
[2022-11-19 15:02] LABS: Absolute Lymphocyte Count 1.23 X10^3/uL (0.83-4.51); Absolute Neutrophil Count 6.1 X10^3/uL (2.0-7.7); Basophil# 0.02 X10^3/uL; Basophil% 0.3 % (0-1); Eosinophil# 0.03 X10^3/uL; Eosinophils% 0.4 % (0-5); Hematocrit 37.4 % (37-47); Lymphocyte # 1.23 X10^3/ul (0.83-4.51); Lymphocyte % 15.4 % (19-41); Mean Corp Hgb Conc 32.1 g/dL (32-36); Mean Corpuscular Hgb 29.9 pg (27.0-32.0); Mean Platelet Vol. 9.7 fl (6.2-12.0); Monocyte# 0.58 X10^3/uL; Monocyte% 7.3 % (0-10); NRBC Flagged by Analyzer 0 % (0-5); Neutrophil # 6.08 X10^3/uL (2.7-7.7); Neutrophil % 76.2 % (47-70); Platelet Count 229 K/mm3 (150-450); RBC Distribution Width CV 13.2 % (11.6-14.6); RBC Distribution Width SD 45.5 fl (35.1-43.9); Red Blood Count 4.02 M/mm3 (4.2-5.4)
[2022-11-19 15:24] LABS: BNP,B-Type NATRIURETIC PEPTIDE 256.9 pg/mL (0-100)
--- NOTE | 2022-11-19 15:25 | RAD_ITS ---
INDICATION: cough, sob EXAMINATION/TECHNIQUE: X-RAY - portable upright AP chest x-ray COMPARISON: 05/31/2022 FINDINGS: LINES/DEVICES: None. LUNGS: Stable coarsening of interstitial markings. No consolidation, vascular congestion or pleural effusion. MEDIASTINUM AND CARDIOVASCULAR STRUCTURES: Cardiac silhouette stable within normal limits. BONES AND SOFT TISSUES: No acute changes. RAD/Chest 1 View (Portable) IMPRESSION: No radiographic evidence of acute cardiopulmonary disease. Electronically Signed: Cooper Gonzalez MD at 16:05 EDT ,
[2022-11-19 15:29] LABS: Anion Gap 7 (5-15); BUN 13 mg/dL (7-18); BUN/Creat Ratio 14.9 RATIO (10-20); Calcium,Total 9.1 mg/dL (8.5-10.1); Chloride 102 mmol/L (98-107); Creatinine, Serum 0.87 mg/dL (0.55-1.02); EST Glomerular Filtration Rate 66 mL/min (>60); Est Glom Filt Rate - Afr Amer 80 mL/min (>60); Estimated Creatinine Clearance 47.69 ml/min; Glucose 107 mg/dL (74-106); Potassium 4.1 mmol/L (3.5-5.1); Sodium Level 137 mmol/L (136-145); Troponin-I HS 44 pg/mL (3.0-54.0)
--- NOTE | 2022-11-19 16:25 | EX.ED.DYSGE1 ---
HPI History of Present Illness Chief Complaint: Shortness of Breath Onset/Context/Timing Onset: Days Context: Gradual Onset Timing: Continuous Quality: wet cough Narrative Narrative: Patient was sent from her nursing facility for a wet cough. Other residents at the facility were tested for COVID earlier in the week. She was negative. She is denying any chest pain or fevers. She has a history of COPD, hypertension, dementia, pulmonary hypertension, and atrial fibrillation. Order for DNR Comfort Care arrest. 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 Lung nodule seen on imaging study Obesity Osteoporosis Paroxysmal atrial fibrillation Pulmonary hypertension Secondary pulmonary arterial hypertension V tach Home Medications aspirin 81 mg tablet,delayed release 81 mg PO DAILY [facility] 04/12/18 [History Last Taken 01/18/22] nystatin 100,000 unit/gram topical powder 1 applic topical DAILY PRN SKIN UNDER BREASTS 12/06/21 [History Last Taken 01/18/22] montelukast 10 mg tablet 10 mg PO QHS ALLERGIES #90 tabs 01/11/22 [Rx Last Taken 01/17/22] acetaminophen 500 mg tablet 1,000 mg (2 x 500 mg) PO Q8 #0 tabs 02/09/22 [Rx Last Taken Unknown] polyethylene glycol 3350 17 gram/dose oral powder (Miralax) 4 g PO BID PRN constipation #510 grams 03/18/22 [Rx Last Taken Unknown] metoprolol tartrate 25 mg tablet 25 mg PO BID BLOOD PRESSURE #180 tabs 03/22/22 [Rx Last Taken Unknown] donepezil 10 mg tablet 10 mg PO QHS #90 tabs 04/15/22 [Rx Last Taken Unknown] sertraline 25 mg tablet (Zoloft) 25 mg PO DAILY #90 tabs 04/15/22 [Rx Last Taken Unknown] buspirone 5 mg tablet 5 mg PO BID #60 tabs 05/19/22 [Rx Last Taken Unknown] Allergy/AdvReac Type Severity Reaction Status Date / Time amoxicillin Allergy Rash Verified 11/19/22 14:23 cefdinir Allergy Rash Verified 11/19/22 14:23 clavulanic acid Allergy Rash Verified 11/19/22 14:23 [From Augmentin] enoxaparin [From Lovenox] Allergy Rash Verified 11/19/22 14:23 heparin Allergy Rash Verified 11/19/22 14:23 levofloxacin [From Levaquin] Allergy Rash Verified 11/19/22 14:23 Family History Father Cancer Mother Hypertension Dementia Surgical History H/O basal cell carcinoma excision History of vein stripping Social History household members: family and other details: Lives with son. Smoking Status: Never smoker alcohol intake: never substance use type: does not use ROS ROS ED Constitutional Constitutional ED: Denies chills or fever(s) Eyes Eyes: Denies blurry vision ENT ENT ED: Denies ear pain Cardiovascular Cardiovascular: Denies chest pain Respiratory/Chest Respiratory/Chest: Reports cough and dyspnea Gastrointestinal Gastrointestinal: Denies abdominal pain, diarrhea, nausea or vomiting Genitourinary Genitourinary ED: Denies dysuria Musculoskeletal Musculoskeletal: Denies arthralgias Integumentary Denies abscess Neurologic Neurologic: Denies headache(s) Psychiatric Psychiatric: Denies anxiety Endocrine Endocrinology: Denies cold intolerance EXAM Physical Exam Const Vital Signs: 11/19/22 14:19 11/19/22 14:24 11/19/22 14:34 Temperature 97.8 F Temperature Source Oral Pulse Rate 73 Respiratory Rate 18 Respiratory Effort Normal Respiratory Depth Normal Respiratory Pattern Normal Blood Pressure 174/80 H Blood Pressure Mean 111 Pulse Ox 86 91 Oxygen Delivery Method Room Air Nasal Cannula Nasal Cannula Oxygen Flow Rate (L/min) 3 3 11/19/22 15:00 11/19/22 15:09 11/19/22 15:09 Temperature 97.8 F Temperature Source Oral Pulse Rate 76 84 Respiratory Rate 94 H 25 H Respiratory Effort Respiratory Depth Respiratory Pattern Tachypnea Blood Pressure 179/80 H Blood Pressure Mean 113 Pulse Ox 94 97 Oxygen Delivery Method Nasal Cannula Nasal Cannula Oxygen Flow Rate (L/min) 3 Positive well nourished and well developed General Appearance ED: well developed Eyes EOMs intact bilaterally Neck no lymphadenopathy and supple Resp normal respiratory effort Auscultation: diminished lung sounds Cardio regular rate and regular rhythm GI normal to inspection, nondistended, normoactive bowel sounds Extremity General Extremety ED: Yes edema; Negative for tenderness General Extremity: edema Neuro Sensorium / Orientation: alert Motor Exam: Negative for general weakness Psych Mood & Affect: depressed Skin no rashes or lesions noted MDM MDM MDM Narrative Medical decision making narrative: EKG was done on arrival and showed sinus rhythm with PACs. Rate of 98. No sign of ischemia or infarction pattern. She was placed on a monitor. She received breathing treatments and steroids. On reevaluation, she is doing well on nasal cannula. No hypoxia. We will continue this. Chest x-ray showed chronic changes. No pneumonia or benita volume overload/fluid overload. The x-ray was reviewed by the radiologist and myself. BNP 256. Troponin normal. CBC and BMP unremarkable. COVID and flu testing negative. Considered cardiovascular, respiratory, infectious causes primarily. She has a history of COPD and I suspect this may be the culprit. She is doing well after treatment and on nasal cannula. Given her hypoxia, will consult the hospitalist to admit for further care. Disposition is PCU Impression #1 hypoxic respiratory failure Impression #2 history of COPD Lab Data Labs: Laboratory Results - last 24 hr 11/19/22 14:45 WBC 8.0 RBC 4.02 L Hgb 12.0 Hct 37.4 MCV 93.0 MCH 29.9 MCHC 32.1 RDW Std Deviation 45.5 H RDW Coeff of Dave 13.2 Plt Count 229 MPV 9.7 Immature Gran % (Auto) 0.400 Neut % (Auto) 76.2 H Lymph % (Auto) 15.4 L [place] % (Auto) 7.3 Eos % (Auto) 0.4 Baso % (Auto) 0.3 Absolute Neuts (auto) 6.1 Absolute Lymphs (auto) 1.23 Nucleated RBC % 0 Sodium 137 Potassium 4.1 Chloride 102 Carbon Dioxide 28.0 Anion Gap 7 BUN 13 Creatinine 0.87 Estim Creat Clear Calc 47.69 Est GFR (MDRD) Af Amer 80 Est GFR (MDRD) Non-Af 66 BUN/Creatinine Ratio 14.9 Glucose 107 H Calcium 9.1 Troponin I High Sens 44 B-Natriuretic Peptide 256.9 H Radiography Diagnostic Testing: Clinical Impression(s) from Imaging Studies Chest X-Ray 11/19/22 15:25 IMPRESSION: No radiographic evidence of acute cardiopulmonary disease. Electronically Signed: Cooper Gonzalez MD at 16:05 EDT Reading Location ID and State: [address] [place] [address] Tel , Service support , Discharge Plan Triage Chief Complaint: Shortness of Breath ED Provider: Jeff Coffman Dx/Rx/DC Orders Prescriptions: No Action donepezil 10 mg tablet 10 mg PO QHS Qty: 90 3RF sertraline [Zoloft] 25 mg tablet 25 mg PO DAILY Qty: 90 3RF buspirone 5 mg tablet 5 mg PO BID Qty: 60 1RF aspirin 81 MG tablet 81 mg PO DAILY nystatin 100,000 unit/gram powder 1 applic topical DAILY PRN (Reason: SKIN UNDER BREASTS) acetaminophen 500 mg Tablet 1,000 mg PO Q8 Qty: 0 0RF montelukast 10 mg tablet 10 mg PO QHS Qty: 90 3RF polyethylene glycol 3350 [Miralax] 17 gram/dose powder 4 g PO BID PRN (Reason: constipation) Qty: 510 1RF metoprolol tartrate 25 mg tablet 25 mg PO BID Qty: 180 3RF Primary Care Provider: Levon White Referrals: Levon White MD [Primary Care Provider] -
--- NOTE | 2022-11-19 16:38 | HP.PCM.HOS_ITS ---
HPI - General General Date of Admission: 11/19/22 Date of Service: 11/19/22 Chief Complaint: Wet cough, sob HPI Narrative ANDREAS MARROQUIN, is a 87 F with a history of COPD, paroxysmal A-fib not on anticoagulation, depression, dementia, hypertension who presented to [facility] 11/19/2022 from [facility] for increasing shortness of breath and cough. In the ED she was found to be 86% on room air and was placed on 2 and half liters and O2 sats improved to the 90s, she was also given Methylpred and a breathing treatment and hospitalist called for admission. History obtained in part from son at bedside as patient has dementia and had difficulty answering specific questions. It seems she has had a cough since last Monday and it has progressed to a wetter cough, she had a negative COVID but cough worsened and she is having some shortness of breath so she was sent to the ED. Slightly better after receiving nebs and steroids still feeling somewhat short of breath, was coughing during exam. Only other complaint was s ome slight nasal congestion otherwise ROS negative. 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 Constipation COPD (chronic obstructive pulmonary disease) COVID-19 (11/16/21) CVA (cerebral vascular accident) Dementia Depression Essential (primary) hypertension History of atrial fibrillation Hypertension Hypertension after donor nephrectomy requiring medication Intertriginous dermatitis associated with moisture Lung nodule seen on imaging study Obesity Osteoporosis Paroxysmal atrial fibrillation Pulmonary hypertension Secondary pulmonary arterial hypertension V tach Home Medications aspirin 81 mg tablet,delayed release 81 mg PO DAILY [facility] 04/12/18 [History Last Taken 01/18/22] nystatin 100,000 unit/gram topical powder 1 applic topical DAILY PRN SKIN UNDER BREASTS 12/06/21 [History Last Taken 01/18/22] montelukast 10 mg tablet 10 mg PO QHS ALLERGIES #90 tabs 01/11/22 [Rx Last Taken 01/17/22] acetaminophen 500 mg tablet 1,000 mg (2 x 500 mg) PO Q8 #0 tabs 02/09/22 [Rx Last Taken Unknown] polyethylene glycol 3350 17 gram/dose oral powder (Miralax) 4 g PO BID PRN constipation #510 grams 03/18/22 [Rx Last Taken Unknown] metoprolol tartrate 25 mg tablet 25 mg PO BID BLOOD PRESSURE #180 tabs 03/22/22 [Rx Last Taken Unknown] donepezil 10 mg tablet 10 mg PO QHS #90 tabs 04/15/22 [Rx Last Taken Unknown] sertraline 25 mg tablet (Zoloft) 25 mg PO DAILY #90 tabs 04/15/22 [Rx Last Taken Unknown] buspirone 5 mg tablet 5 mg PO BID #60 tabs 05/19/22 [Rx Last Taken Unknown] Allergy/AdvReac Type Severity Reaction Status Date / Time amoxicillin Allergy Rash Verified 11/19/22 14:23 cefdinir Allergy Rash Verified 11/19/22 14:23 clavulanic acid Allergy Rash Verified 11/19/22 14:23 [From Augmentin] enoxaparin [From Lovenox] Allergy Rash Verified 11/19/22 14:23 heparin Allergy Rash Verified 11/19/22 14:23 levofloxacin [From Levaquin] Allergy Rash Verified 11/19/22 14:23 Family History Father Cancer Mother Hypertension Dementia Surgical History H/O basal cell carcinoma excision History of vein stripping Social History household members: family and other details: Lives with son. Smoking Status: Never smoker alcohol intake: never substance use type: does not use ROS ROS Narrative General: Denies fever/chills HENT: Denies headache, slight stuffy nose, denies sore throat EYES: Denies changes in vision Resp: Wet cough, some shortness of breath Cardiac: Denies chest pain GI: Denies abdominal pain, denies changes in bowel, denies nausea/vomiting : Chronically incontinent Extremity: Has some chronic lower extremity swelling MSK: Denies weakness Neuro: Denies any numbness/tingling Heme: Denies any bleeding or bruising Skin: Denies rashes Psychiatric: No complaints voiced Vital Signs Vital Signs Vital Signs: 11/19/22 14:19 11/19/22 14:24 11/19/22 14:34 Temperature 97.8 F Temperature Source Oral Pulse Rate 73 Respiratory Rate 18 Respiratory Effort Normal Respiratory Depth Normal Respiratory Pattern Normal Blood Pressure 174/80 H Blood Pressure Mean 111 Pulse Ox 86 91 Oxygen Delivery Method Room Air Nasal Cannula Nasal Cannula Oxygen Flow Rate (L/min) 3 3 11/19/22 15:00 11/19/22 15:09 11/19/22 15:09 Temperature 97.8 F Temperature Source Oral Pulse Rate 76 84 Respiratory Rate 94 H 25 H Respiratory Effort Respiratory Depth Respiratory Pattern Tachypnea Blood Pressure 179/80 H Blood Pressure Mean 113 Pulse Ox 94 97 Oxygen Delivery Method Nasal Cannula Nasal Cannula Oxygen Flow Rate (L/min) 3 11/19/22 16:31 Temperature 97.8 F Temperature Source Oral Pulse Rate 104 H Respiratory Rate 22 H Respiratory Effort Respiratory Depth Respiratory Pattern Blood Pressure 138/79 H Blood Pressure Mean 98 Pulse Ox 93 Oxygen Delivery Method Nasal Cannula Oxygen Flow Rate (L/min) 3 Weight Weight: 77.8 kg Body Mass Index (BMI) 26.0 Physical Exam Narrative General: Alert, difficulty answering orientation questions, no acute distress HEENT: Atraumatic, normocephalic Eyes: Anicteric, normal conjunctiva, extraocular movements grossly intact Neck: Supple Respiratory: Somewhat diminished throughout with slight crackles at the bases, normal respiratory effort Cardiovascular: Regular rate and rhythm GI: Soft, nontender, nondistended Extremities: Nonpitting lower extremity edema Musculoskeletal: Moving all extremities Neuro: No overt focal neurological deficits Skin: No rashes appreciated Psych: Cooperative Results Lab / Micro Data 11/19/22 14:45 11/19/22 14:45 Labs: Laboratory Results - last 24 hr 11/19/22 14:45: WBC 8.0, RBC 4.02 L, Hgb 12.0, Hct 37.4, MCV 93.0, MCH 29.9, MCHC 32.1, RDW Std Deviation 45.5 H, RDW Coeff of Dave 13.2, Plt Count 229, MPV 9.7, Immature Gran % (Auto) 0.400, Neut % (Auto) 76.2 H, Lymph % (Auto) 15.4 L, [place] % (Auto) 7.3, Eos % (Auto) 0.4, Baso % (Auto) 0.3, Absolute Neuts (auto) 6 .1, Absolute Lymphs (auto) 1.23, Nucleated RBC % 0, Sodium 137, Potassium 4.1, Chloride 102, Carbon Dioxide 28.0, Anion Gap 7, BUN 13, Creatinine 0.87, Estim Creat Clear Calc 47.69, Est GFR (MDRD) Af Amer 80, Est GFR (MDRD) Non-Af 66, BUN/Creatinine Ratio 14.9, Glucose 107 H, Calcium 9.1, Troponin I High Sens 44, B-Natriuretic Peptide 256.9 H Micro: Microbiology 11/19/22 14:25 Nasal Secretion SARS-CoV-2 & FLU Antigen (Rapid) - Final Radiology Impression Chest X-Ray 11/19/22 15:25 IMPRESSION: No radiographic evidence of acute cardiopulmonary disease. Electronically Signed: Cooper Gonzalez MD at 16:05 EDT , Assessment & Plan Assessment/Plan (1) Hypoxemia: (2) COPD exacerbation: (3) Essential hypertension: (4) Paroxysmal atrial fibrillation: (5) Secondary pulmonary arterial hypertension: PLAN: Plan #Hypoxia secondary to acute exacerbation of COPD -Patient hypoxic with 86% saturation on room air and tachypneic which improved with nebs, steroids, and O2 -Has had increased shortness of breath and cough with no infiltrate or obvious pneumonia -Continue nebs and steroids and azithromycin -PFT 10/05/2018 Irreversible moderate large airways obstructive ventilatory defect with preserved lung volumes. Diffusing capacity is at the lower limits of normal -May have underlying component of viral illness so we will check COVID and respiratory panel -We will also check sputum culture, patient started Mucinex, encourage incentive spirometer #PAH -On documentation, did not have noted diastolic or systolic dysfunction on last echo which showed RVSP of 47 and EF 55 to 60% the patient does have some crackles and an elevated BNP -Do think that there is a slight component of fluid contributing to current picture but do not think that is the main problem, will give small dose of Lasix -Daily weights, I's and O's -We will repeat limited echo to assess EF and diastolic function #Hypertension -Continue home metoprolol #Paroxysmal atrial fibrillation -Presently normal sinus rhythm, continue beta-mayito -Patient follows with cardiology and was last seen 05/16/2022 and there is a risks benefits discussion about anticoagulation and it was ultimately decided the patient was high risk for bleeding so she is not on anticoagulation #Dementia -Per son patient at baseline -Holding donepezil as patient is also being started on azithromycin and holding this in the short-term should not have any deleterious effects on long-term mental status -Melatonin scheduled to help maintain sleep-wake cycle and decrease chances of delirium #Depression -Continue home medications #debility -Living at [facility] since she was discharged in May, will consult case management, PT, OT -Fall precautions #DVT ppx: SCDs Saima Richardson MD Charges/Coding Visit Charges Inpatient E&M: 91051 Init Hosp L2
--- NOTE | 2022-11-19 17:16 | ECHOL_ITS ---
Reason For Study: SOB, EF and Diastolic Function Procedure This was a limited 2D transthoracic echocardiogram. Exam performed portable in patient room. Left Ventricle Normal LV size. The estimated ejection fraction is 70 %. No evidence for diastolic dysfunction. No regional wall motion abnormalities noted. Right Ventricle Normal RV size. Normal systolic function. Atria Normal left atrium. Normal right atrium. No doppler evidence for ASD. Mitral Valve There is no mitral valve stenosis. No mitral valve insufficiency. Tricuspid Valve There is no tricuspid stenosis. Trivial tricuspid valve insufficiency. Unable to estimate RV systolic pressure due to insufficient tricuspid regurgitant envelope. Aortic Valve Trisinus/trileaflet aortic valve. There is no aortic stenosis. No aortic valve insufficiency. Pulmonic Valve There is no pulmonic valvular stenosis. No pulmonic valve insufficiency. Great Vessels Normal aortic root. Pericardium/Pleural No pericardial effusion. MMode/2D Measurements & Calculations LVIDd: 4.3 cm IVSd: 1.1 cm LA dimension: 3.7 cm LVIDs: 2.7 cm LVPWd: 0.81 cm FS: 38.1 % Time Measurements MV dec time: 0.21 sec Doppler Measurements & Calculations MV E max frederick: 77.2 cm/sec Lat Peak E' Frederick: 8.1 cm/sec Med Peak E' Frederick: 6.8 cm/sec MV A max frederick: 151.7 cm/sec E/E' lat: 9.5 E/E' med: 11.4 MV E/A: 0.51 Ao V2 max: 132.6 cm/sec LV V1 max: 156.1 cm/sec MV dec slope: 373.3 cm/sec2 Ao max P.0 mmHg LV V1 max P.7 mmHg TR max frederick: 286.7 cm/sec TR max P.9 mmHg ECHO/Echo, Limited Study Interpretation Summary The estimated ejection fraction is 70 %. No evidence for diastolic dysfunction. Ordering Physician: Saima Richardson Referring Physician: Levon White Performed By: Michele Diaz RCS
[2022-11-19] MEDS: Furosemide 20 MG/2 ML VIAL IV (19:03)
[2022-11-19] MEDS: MELATONIN 10 MG TABLET PO (20:48)
[2022-11-19] MEDS: 0.9% Saline Lock 10 ML Syringe IV (20:48)
[2022-11-19] MEDS: Metoprolol Tartrate 25 MG Tablet PO (20:48)
[2022-11-19] MEDS: Montelukast 10 MG Tablet PO (20:48)
[2022-11-19] MEDS: Methylprednisolone Sod Succ 40 MG/ML VIAL IV (20:48)
[2022-11-19] MEDS: guaiFENesin 600 MG Tablet PO (20:48)
[2022-11-19] MEDS: busPIRone 5 MG Tablet PO (20:48)
[2022-11-19] MEDS: Azithromycin 500 MG in Dextrose 5%-Water (250mL Bag) 250 ML 250 MG IV (21:02)
[2022-11-20] VITALS (15 sets, daily range): BP systolic 136–150; BP diastolic 62–88; PULSE 59–96; RESP 14–26; TEMP 36.1–36.7; O2SAT 94–99; BMI 24.7
[2022-11-20] MEDS: Ipratropium/Albuterol Sulfate 3 ML AMPUL.NEB INHALATION ×6 (03:20→22:13)
[2022-11-20] MEDS: 0.9% Saline Lock 10 ML Syringe IV ×3 (05:29→20:00)
[2022-11-20] MEDS: Methylprednisolone Sod Succ 40 MG/ML VIAL IV ×3 (05:29→20:00)
[2022-11-20 05:45] LABS: Absolute Lymphocyte Count 0.61 X10^3/uL (0.83-4.51); Basophil# 0.01 X10^3/uL; Basophil% 0.2 % (0-1); Hematocrit 35.7 % (37-47); Hemoglobin 11.5 g/dL (12.0-15.0); Lymphocyte # 0.61 X10^3/ul (0.83-4.51); Lymphocyte % 12.8 % (19-41); Mean Corp Hgb Conc 32.2 g/dL (32-36); Mean Corpuscular Hgb 29.5 pg (27.0-32.0); Mean Corpuscular Volume 91.5 fL (81-99); Monocyte# 0.07 X10^3/uL; Monocyte% 1.5 % (0-10); NRBC Flagged by Analyzer 0 % (0-5); Neutrophil # 4.03 X10^3/uL (2.7-7.7); Neutrophil % 84.7 % (47-70); Platelet Count 197 K/mm3 (150-450); RBC Distribution Width CV 13.1 % (11.6-14.6); RBC Distribution Width SD 44.1 fl (35.1-43.9); White Blood Count 4.8 K/mm3 (4.4-11.0)
[2022-11-20 06:29] LABS: Anion Gap 7 (5-15); BUN 20 mg/dL (7-18); BUN/Creat Ratio 21.9 RATIO (10-20); Calcium,Total 8.9 mg/dL (8.5-10.1); Chloride 103 mmol/L (98-107); Creatinine, Serum 0.91 mg/dL (0.55-1.02); EST Glomerular Filtration Rate 62 mL/min (>60); Est Glom Filt Rate - Afr Amer 75 mL/min (>60); Estimated Creatinine Clearance 45.59 ml/min; Glucose 167 mg/dL (74-106); Potassium 3.8 mmol/L (3.5-5.1); Sodium Level 135 mmol/L (136-145)
--- NOTE | 2022-11-20 08:41 | PCM.PN.HOSP ---
Subjective Subjective Doing well, breathing little bit better today Objective Data Objective Data Vital Signs: Vital Signs Temp Pulse Resp BP Pulse Ox O2 Del Method O2 Flow Rate 97.0 F L 64 24 H 150/69 H 98 High Flow 5 11/20/22 03:00 11/20/22 07:20 11/20/22 07:20 11/20/22 03:00 11/20/22 07:22 11/20/22 07:22 11/20/22 07:22 Oxygen Flow Rate (L/min) 5 Oxygen Delivery Method High Flow Weight: 162 lb 11.218 oz Body Mass Index (BMI) 24.7 Intake & Output: Intake and Output for Last 24 Hours 11/19/22 11/20/22 11/21/22 03:59 03:59 03:59 Intake Total 615 / 615 Balance 615 / 615 Lab / Micro Data 11/20/22 05:10 11/20/22 05:10 Labs: Laboratory Results - last 24 hr 11/19/22 14:45: WBC 8.0, RBC 4.02 L, Hgb 12.0, Hct 37.4, MCV 93.0, MCH 29.9, MCHC 32.1, RDW Std Deviation 45.5 H, RDW Coeff of Dave 13.2, Plt Count 229, MPV 9.7, Immature Gran % (Auto) 0.400, Neut % (Auto) 76.2 H, Lymph % (Auto) 15.4 L, [place] % (Auto) 7.3, Eos % (Auto) 0.4, Baso % (Auto) 0.3, Absolute Neuts (auto) 6.1, Absolute Lymphs (auto) 1.23, Nucleated RBC % 0, Sodium 137, Potassium 4.1, Chloride 102, Carbon Dioxide 28.0, Anion Gap 7, BUN 13, Creatinine 0.87, Estim Creat Clear Calc 47.69, Est GFR (MDRD) Af Amer 80, Est GFR (MDRD) Non-Af 66, BUN/Creatinine Ratio 14.9, Glucose 107 H, Calcium 9.1, Troponin I High Sens 44, B-Natriuretic Peptide 256.9 H 11/20/22 05:10: WBC 4.8, RBC 3.90 L, Hgb 11.5 L, Hct 35.7 L, MCV 91.5, MCH 29.5, MCHC 32.2, RDW Std Deviation 44.1 H, RDW Coeff of Dave 13.1, Plt Count 197, MPV 10.0, Immature Gran % (Auto) 0.800, Neut % (Auto) 84.7 H, Lymph % (Auto) 12.8 L, [place] % (Auto) 1.5, Eos % (Auto) 0.0, Baso % (Auto) 0.2, Absolute Neuts (auto) 4.0, Absolute Lymphs (auto) 0.61 L, Nucleated RBC % 0, Sodium 135 L, Potassium 3.8, Chloride 103, Carbon Dioxide 25.0, Anion Gap 7, BUN 20 H, Creatinine 0.91, Estim Creat Clear Calc 45.59, Est GFR (MDRD) Af Amer 75, Est GFR (MDRD) Non-Af 62, BUN/Creatinine Ratio 21.9 H, Glucose 167 H, Calcium 8.9, Magnesium 2.0 Micro: Microbiology 11/19/22 18:55 Mucosa - Nose Respiratory Panel (PCR) - Final Rhinovirus 11/19/22 14:25 Nasal Secretion SARS-CoV-2 & FLU Antigen (Rapid) - Final Radiography Diagnostic Testing: Radiology Impression Chest X-Ray 11/19/22 15:25 IMPRESSION: No radiographic evidence of acute cardiopulmonary disease. Electronically Signed: Cooper Gonzalez MD at 16:05 EDT Reading Location ID and State: [address] [place] [address] Tel , Service support , Physical Exam Narrative General: Alert, cooperative, No apparent distress HEENT: Atraumatic, PERRLA, EOMI, Normocephalic Oral: Moist Mucosa Neck: Supple, No JVD Lungs: Diminished, Normal air movement, slight rhonchi, No wheeze, No rales Cardiovascular: Regular rate, Regular Rhythm, Normal S1, Normal S2, No murmurs Abdomen: Soft, Non Tender, Non-Distended, No Hepato-splenomegaly Extremities: Edema, Capillary Refill Less than 3 Seconds Skin: No rashes, No breakdown Musculoskeletal: No Tenderness to Palpation of Joints or Extremities Neurological: Cranial nerves II-XII grossly intact, Motor Exam 5/5 strength throughout, Sensory exam intact to light touch and pain Psych/Mental Status: Flat affect Assessment & Plan Assessment/Plan (1) Hypoxemia: (2) COPD exacerbation: (3) Essential hypertension: (4) Paroxysmal atrial fibrillation: (5) Secondary pulmonary arterial hypertension: PLAN: Plan 1. Hypoxia secondary to acute exacerbation of COPD also complicated by history of pulmonary hypertension exacerbated by rhinovirus ? Continue with DuoNebs as well as steroids and azithromycin ? She did have a PFT in 2019 with irreversible moderate large airway obstructive ventilatory defect with preserved lung volumes. The diffusing capacity is at the lower limits of normal ? COVID and respiratory panel is positive for rhinovirus ? On her last echo she had an RVSP of 47 mmHg with normal ejection fraction ? Limited echo is pending and she is trialed small dose of Lasix 2. HTN/HLD/paroxysmal A-fib ? Blood pressures are stable ? We will continue with her home blood pressure medications ? As she is not on any anticoagulation as she was deemed by cardiology to be too high risk for bleeding ? We will monitor blood pressures and adjustments as necessary 3. Dementia/depression/debility ? Her son states that she is at baseline ? Her donepezil is being held and she was started on melatonin to help with sleep ? Can continue her home depression medications ? She lives at [facility] since she was discharged from the hospital in May continue with PT/OT DVT: SCDs Charges/Coding Visit Charges Inpatient E&M: 80979 Subs Hosp L2
[2022-11-20] MEDS: Sertraline 50 MG Tablet 25 MG PO (09:56)
[2022-11-20] MEDS: Aspirin E.C. 81 MG Tablet PO (09:56)
[2022-11-20] MEDS: Azithromycin 250 MG Tablet 500 MG PO (09:56)
[2022-11-20] MEDS: guaiFENesin 600 MG Tablet PO ×2 (09:56→20:00)
[2022-11-20] MEDS: Metoprolol Tartrate 25 MG Tablet PO ×2 (09:56→20:00)
[2022-11-20] MEDS: Furosemide 20 MG/2 ML VIAL IV (09:56)
[2022-11-20] MEDS: busPIRone 5 MG Tablet PO ×2 (09:56→20:00)
[2022-11-20] MEDS: Acetaminophen 325 MG Tablet 650 MG PO (10:07)
[2022-11-20] MEDS: Montelukast 10 MG Tablet PO (20:00)
--- NOTE | 2022-11-20 20:00 | NURSING ---
Pt asking for meds to be given early d/t falling asleep.
[2022-11-21] VITALS (10 sets, daily range): BP systolic 135–155; BP diastolic 65–72; PULSE 76–96; RESP 18–24; TEMP 36.4–37.2; O2SAT 90–95; BMI 25.2
[2022-11-21] MEDS: Ipratropium/Albuterol Sulfate 3 ML AMPUL.NEB INHALATION ×2 (03:27→06:40)
[2022-11-21] MEDS: 0.9% Saline Lock 10 ML Syringe IV ×3 (05:04→14:57)
[2022-11-21] MEDS: Methylprednisolone Sod Succ 40 MG/ML VIAL IV ×2 (05:04→14:57)
[2022-11-21 06:48] LABS: Absolute Lymphocyte Count 0.79 X10^3/uL (0.83-4.51); Absolute Neutrophil Count 10.4 X10^3/uL (2.0-7.7); Basophil# 0.01 X10^3/uL; Basophil% 0.1 % (0-1); Hematocrit 33.6 % (37-47); Hemoglobin 11.1 g/dL (12.0-15.0); Lymphocyte # 0.79 X10^3/ul (0.83-4.51); Lymphocyte % 6.8 % (19-41); Mean Corpuscular Hgb 30.2 pg (27.0-32.0); Mean Corpuscular Volume 91.3 fL (81-99); Monocyte# 0.29 X10^3/uL; Monocyte% 2.5 % (0-10); NRBC Flagged by Analyzer 0 % (0-5); Neutrophil # 10.41 X10^3/uL (2.7-7.7); Neutrophil % 89.7 % (47-70); Platelet Count 268 K/mm3 (150-450); RBC Distribution Width CV 13.1 % (11.6-14.6); Red Blood Count 3.68 M/mm3 (4.2-5.4); White Blood Count 11.6 K/mm3 (4.4-11.0)
[2022-11-21 07:27] LABS: Anion Gap 7 (5-15); BUN 27 mg/dL (7-18); BUN/Creat Ratio 29.4 RATIO (10-20); Calcium,Total 8.7 mg/dL (8.5-10.1); Chloride 103 mmol/L (98-107); Creatinine, Serum 0.92 mg/dL (0.55-1.02); EST Glomerular Filtration Rate 62 mL/min (>60); Est Glom Filt Rate - Afr Amer 75 mL/min (>60); Glucose 149 mg/dL (74-106); Potassium 3.7 mmol/L (3.5-5.1); Sodium Level 136 mmol/L (136-145)
[2022-11-21] MEDS: Aspirin E.C. 81 MG Tablet PO (09:15)
[2022-11-21] MEDS: Metoprolol Tartrate 25 MG Tablet PO (09:15)
[2022-11-21] MEDS: Furosemide 20 MG/2 ML VIAL IV (09:15)
[2022-11-21] MEDS: busPIRone 5 MG Tablet PO (09:15)
[2022-11-21] MEDS: guaiFENesin 600 MG Tablet PO (09:16)
[2022-11-21] MEDS: Sertraline 50 MG Tablet 25 MG PO (09:16)
[2022-11-21] MEDS: Azithromycin 250 MG Tablet 500 MG PO (09:16)
--- NOTE | 2022-11-21 11:15 | CASEMGMT ---
ANNALISA called patient's daughter Mary. ANNALISA introduced self and role at [facility]. ANNALISA let Mary know patient will de discharged today and she will be on O2. Mary said she is not driving right now. ANNALISA let Mary know ANNALISA will set up transport. Mary asked if someone from [facility] could call when patient gets back. ANNALISA will pass along this message. Essence Elliott BUFFING AND SUEDING MACHINE OPERATOR BERTIN
--- NOTE | 2022-11-21 11:46 | CASEMGMT ---
ANNALISA called patient's son Javier. ANNALISA introduced self and role at [facility]. Javier confirmed the plan is for patient to return to [facility] at discharge. ANNALISA let Javier know patient may be discharged today, but ANNALISA will let him know for sure. ANNALISA asked Princess d/c financial planning analyst to please send updates to [facility]. Essence DENTON
--- NOTE | 2022-11-21 11:58 | CASEMGMT ---
Discharge Planning Updates sent to [facility] via [facility]. Princess Stone, Discharge Planning Asst.
--- NOTE | 2022-11-21 12:10 | TREXTCAR_ITS ---
Diet Diet Order/Speech Therapy: 11/19/22 17:17 Diet: Regular - General Food consistency:: Regular Liquid Consistency:: Regular/Thin Fluid restriction:: 1750 mL Routine Orders/Code Status Code Status: DNRCC-A (no intubation) Therapies Weight Bearing: Full weight bearing Problem/Diagnosis (1) Hypoxemia: Status: Acute Code(s): R09.02 - Hypoxemia (2) COPD exacerbation: Status: Acute Code(s): J44.1 - Chronic obstructive pulmonary disease with (acute) exacerbation (3) Essential hypertension: Status: Chronic Code(s): I10 - Essential (primary) hypertension (4) Paroxysmal atrial fibrillation: Status: Chronic Code(s): I48.0 - Paroxysmal atrial fibrillation (5) Secondary pulmonary arterial hypertension: Status: Chronic Code(s): I27.21 - Secondary pulmonary arterial hypertension (6) Rhinovirus infection: Status: Acute Code(s): B34.8 - Other viral infections of unspecified site Allergies/Procedures Done in Hospital Allergies amoxicillin Allergy (Verified 11/19/22 14:23) Rash cefdinir Allergy (Verified 11/19/22 14:23) Rash clavulanic acid [From Augmentin] Allergy (Verified 11/19/22 14:23) Rash enoxaparin [From Lovenox] Allergy (Verified 11/19/22 14:23) Rash heparin Allergy (Verified 11/19/22 14:23) Rash levofloxacin [From Levaquin] Allergy (Verified 11/19/22 14:23) Rash Procedures: 2-D Echocardiogram Type of Care/Length of Stay Estimated LOS: More Than 30 Days Type of Care Needed: Intermediate Rehab Potential: Fair Prognosis: Fair Additional Orders/Day of Discharge H&P will serve as current which was dated: 11/19/22 Day of Discharge: 11/21/22 Dietary and Speech Recommendations Dietitian Recommendations/Changes: Rec continue liberal regular diet - rec liberalize fluid restriction as medically able Continue to follow and monitor for changes in pt nutritional status and make additional rec as indicated Discharge Plan Admission Admit Date/Time: 11/19/22 16:38 Primary Reason for Your Visit: Rhinovirus infection, hypoxia, exac of COPD Attending Provider: Gerber Khan Primary Care Provider: Levon White Consulting Providers: Saima Richardson; Reji Cronin Discharge Orders/Prescriptions Prescriptions: New ipratropium-albuterol 0.5 mg-3 mg(2.5 mg base)/3 mL Solution For Nebulization 3 ml inhalation 3XD Qty: 0 0RF albuterol sulfate 2.5 mg /3 mL (0.083 %) Solution For Nebulization 2.5 mg inhalation Q2H PRN PRN (Reason: SOB/Wheezing) Qty: 0 0RF prednisone 20 mg tablet 20 mg PO BID Qty: 10 0RF Rx Instructions: one twice a day for 10 doses, then discontinue Continued donepezil 10 mg tablet 10 mg PO QHS Qty: 90 3RF sertraline [Zoloft] 25 mg tablet 25 mg PO DAILY Qty: 90 3RF buspirone 5 mg tablet 5 mg PO BID Qty: 60 1RF aspirin 81 MG tablet 81 mg PO DAILY nystatin 100,000 unit/gram powder 1 applic topical DAILY PRN (Reason: SKIN UNDER BREASTS) acetaminophen 500 mg Tablet 1,000 mg PO Q8 Qty: 0 0RF montelukast 10 mg tablet 10 mg PO QHS Qty: 90 3RF polyethylene glycol 3350 [Miralax] 17 gram/dose powder 4 g PO BID PRN (Reason: constipation) Qty: 510 1RF metoprolol tartrate 25 mg tablet 25 mg PO BID Qty: 180 3RF Referrals / Follow Up: Levon White MD [Primary Care Provider] - Disposition Disposition (needs filled in before D/C Order can be placed): [facility]-Way Facility
--- NOTE | 2022-11-21 14:58 | CASEMGMT ---
Plan: d/c back to [facility] under intermediate level of care. Physicians will transport patient via cot due to dementia. 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
--- NOTE | 2022-11-21 14:59 | DS.PCM_ITS ---
Providers Date of Admission: 11/19/22 Date of Discharge: 11/21/22 Primary Care Physician: Dr. Levon White MD Reason For Visit: HYPOXIA Diagnosis Discharge Diagnosis (1) Hypoxemia: Status: Acute Code(s): R09.02 - Hypoxemia (2) COPD exacerbation: Status: Acute Code(s): J44.1 - Chronic obstructive pulmonary disease with (acute) exacerbation (3) Essential hypertension: Status: Chronic Code(s): I10 - Essential (primary) hypertension (4) Paroxysmal atrial fibrillation: Status: Chronic Code(s): I48.0 - Paroxysmal atrial fibrillation (5) Secondary pulmonary arterial hypertension: Status: Chronic Code(s): I27.21 - Secondary pulmonary arterial hypertension (6) Rhinovirus infection: Status: Acute Code(s): B34.8 - Other viral infections of unspecified site Plan 1. Acute exacerbation of COPD secondary to rhinovirus infection #2 hypoxia secondary to #1 #3 essential hypertension #4 paroxysmal A-fib #5 dementia #6 rhinovirus infection of the lung Medications at Discharge Home Medications aspirin 81 mg tablet,delayed release 81 mg PO DAILY [facility] 04/12/18 nystatin 100,000 unit/gram topical powder 1 applic topical DAILY PRN SKIN UNDER BREASTS 12/06/21 montelukast 10 mg tablet 10 mg PO QHS ALLERGIES #90 tabs 01/11/22 acetaminophen 500 mg tablet 1,000 mg (2 x 500 mg) PO Q8 #0 tabs 02/09/22 polyethylene glycol 3350 17 gram/dose oral powder (Miralax) 4 g PO BID PRN constipation #510 grams 03/18/22 metoprolol tartrate 25 mg tablet 25 mg PO BID BLOOD PRESSURE #180 tabs 03/22/22 donepezil 10 mg tablet 10 mg PO QHS #90 tabs 04/15/22 sertraline 25 mg tablet (Zoloft) 25 mg PO DAILY #90 tabs 04/15/22 buspirone 5 mg tablet 5 mg PO BID #60 tabs 05/19/22 albuterol sulfate 2.5 mg/3 mL (0.083 %) solution for nebulization 2.5 mg (3 mL) inhalation Q2H PRN PRN SOB/Wheezing #0 mL 11/21/22 ipratropium 0.5 mg-albuterol 3 mg (2.5 mg base)/3 mL nebulization soln 3 ml inhalation 3XD #0 mL 11/21/22 prednisone 20 mg tablet 20 mg PO BID #10 tabs 11/21/22 Hospital Course Operations None Procedures None Summary of Care Provided Minutes Spent on Discharge: 32 Hospital Course: This 87-year-old white female was seen in the emergency room at [facility] after being transported in from a local extended care facility at which she resides due to increased shortness of breath and cough, she was found to have a pulse ox of 86% on room air in the emergency room and placed on supplemental oxygen. Chest x-ray was performed which showed no radiological evidence of acute cardiopulmonary disease, patient's white blood cell count was normal. Patient was admitted for exacerbation of COPD, respiratory panel resulted positive for rhinovirus, patient was initially treated with antibiotics and these were stopped, she continued on aerosol treatments and IV corticosteroids. She was seen by PT and OT. Arranges were made for the patient to return to her extended care facility for further care at the time of discharge from the hospital. On 11/21/2022, patient was seen and examined: On examination she appeared in good health and spirits, she does not appear to be in any distress, she is confused. Vital signs as documented. Skin warm and dry and without overt rashes. Neck without JVD, thyroid appears normal, trachea is midline, neck is supple. Lungs clear, normal air movement was noted. Heart exam notable for regular rhythm, normal sounds and absence of murmurs, rubs or gallops. Abdomen unremarkable and without evidence of organomegaly, masses, or abdominal aortic enlargement, bowel sounds are present in all 4 quadrants, no abdominal tenderness was noted. Extremities nonedematous, no cyanosis was noted, no clubbing was noted. Neuro: Cranial nerves II through XII are grossly intact, no focal motor deficits were noted, sensation to light touch and pinprick is intact, motor exam 5/5 throughout. Psych: Patient is alert, she is confused Patient appears stable for discharge to her extended care facility on 11/21/2022. Patient did not require oxygen at the time of discharge from the hospital Weight / BMI Weight Weight: 75.5 kg Body Mass Index (BMI) 25.2 ABG / Lab / Microbiology Data 11/21/22 05:55 11/21/22 05:55 Laboratory: Laboratory Results - last 24 hr 11/21/22 05:55: WBC 11.6 H, RBC 3.68 L, Hgb 11.1 L, Hct 33.6 L, MCV 91.3, MCH 30 .2, MCHC 33.0, RDW Std Deviation 44.0 H, RDW Coeff of Dave 13.1, Plt Count 268, MPV 10.0, Immature Gran % (Auto) 0.900, Neut % (Auto) 89.7 H, Lymph % (Auto) 6.8 L, Kent % (Auto) 2.5, Eos % (Auto) 0.0, Baso % (Auto) 0.1, Absolute Neuts (auto) 10.4 H, Absolute Lymphs (auto) 0.79 L, Nucleated RBC % 0, Sodium 136, Potassium 3.7, Chloride 103, Carbon Dioxide 26.0, Anion Gap 7, BUN 27 H, Creatinine 0.92, Estim Creat Clear Calc 45.10, Est GFR (MDRD) Af Amer 75, Est GFR (MDRD) Non-Af 62, BUN/Creatinine Ratio 29.4 H, Glucose 149 H, Calcium 8.7 Microbiology: Microbiology 11/19/22 18:55 Mucosa - Nose Respiratory Panel (PCR) - Final Rhinovirus 11/19/22 14:25 Nasal Secretion SARS-CoV-2 & FLU Antigen (Rapid) - Final Radiography Diagnostic Testing: Radiology Impression Echocardiogram 11/19/22 17:16 Interpretation Summary The estimated ejection fraction is 70 %. No evidence for diastolic dysfunction. Ordering Physician: Saima Richardson Referring Physician: Levon White Performed By: Michele Diaz RCS Meaningful Use Info Meaningful Use Diagnoses (Choose all that apply): None applicable Discharge Plan Admission Admit Date/Time: 11/19/22 16:38 Primary Reason for Your Visit: Rhinovirus infection, hypoxia, exac of COPD Attending Provider: Gerber Khan Primary Care Provider: Levon White Consulting Providers: Saima Richardson; Reji Cronin Discharge Orders/Prescriptions Prescriptions: New ipratropium-albuterol 0.5 mg-3 mg(2.5 mg base)/3 mL Solution For Nebulization 3 ml inhalation 3XD Qty: 0 0RF albuterol sulfate 2.5 mg /3 mL (0.083 %) Solution For Nebulization 2.5 mg inhalation Q2H PRN PRN (Reason: SOB/Wheezing) Qty: 0 0RF prednisone 20 mg tablet 20 mg PO BID Qty: 10 0RF Rx Instructions: one twice a day for 10 doses, then discontinue Continued donepezil 10 mg tablet 10 mg PO QHS Qty: 90 3RF sertraline [Zoloft] 25 mg tablet 25 mg PO DAILY Qty: 90 3RF buspirone 5 mg tablet 5 mg PO BID Qty: 60 1RF aspirin 81 MG tablet 81 mg PO DAILY nystatin 100,000 unit/gram powder 1 applic topical DAILY PRN (Reason: SKIN UNDER BREASTS) acetaminophen 500 mg Tablet 1,000 mg PO Q8 Qty: 0 0RF montelukast 10 mg tablet 10 mg PO QHS Qty: 90 3RF polyethylene glycol 3350 [Miralax] 17 gram/dose powder 4 g PO BID PRN (Reason: constipation) Qty: 510 1RF metoprolol tartrate 25 mg tablet 25 mg PO BID Qty: 180 3RF Referrals / Follow Up: Levon White MD [Primary Care Provider] - Disposition Disposition (needs filled in before D/C Order can be placed): [facility] Facility Charges/Coding Visit Charges Inpatient E&M: 54839 Disch Hosp >30min
--- NOTE | 2022-11-21 15:19 | CASEMGMT ---
Addendum entered by Princess Stone 11/21/22 16:12: Patient will be transported by cot. Princess Stone, Discharge Planning Asst. Original Note: Discharge Planning Discharge orders, signed med list, and transport time sent to [facility] via [facility]. [facility] will transport patient by wheelchair at 4:30. Nursing, SW, patient, and her son all updated. Princess Stone, Discharge Planning Asst.
--- NOTE | 2022-11-21 16:00 | CHAPLAIN ---
Type of Pastoral Visit _x__ Initial Visit ___ Follow-up Visit ___ On-call Visit ___ General Patient Visit ___ Spiritual Assessment ___ Family Conference ___ Bereavement ___ Rapid Response ___ Code Blue ___ Other (describe below) Pastoral Care Referral From _x__ Patient ___ Family ___ Nurse ___ Physician ___ Television News Producer ___ Safety Glass Installer ___ Other (describe below) Sacrament/Intervention _x__ Active listening ___ Anointing ___ Holiness ___ Bereavement ___ Communion ___ Raissa exploration ___ ___ Life review _x__ Prayer ___ Reconciliation ___ Sacrament of Sick _x__ Supportive presence ___ Wedding ___ Other (describe below) Pastoral Comments patient is sitting up in chair; pt is pleasant but did not respond appropriately to time and place; pt has been seen before on several admissions but 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
--- NOTE | 2022-11-21 17:04 | NURSING ---
[facility] @ [facility]10 regarding pt. and their DC orders. Nurse verbalized understanding of DC orders/ instructions. pt. left via ambulette @ approx. 1635.
== END 2022-11-21 16:31 | disposition skilled nursing facility (03) | DRG 191 ==
LOC: ED 16:30 → PCU 11-20 06:56
PROVIDERS: Family Medicine; Admitting Provider Internal Medicine; Emergency Provider Emergency Medicine; PCP Internal Medicine; Visit Provider Internal Medicine
DX: J44.1 Chronic obstructive pulmonary disease with (acute) exacerbation (principal); F03.93 Unspecified dementia, unspecified severity, with mood disturbance; I27.21 Secondary pulmonary arterial hypertension; I48.0 Paroxysmal atrial fibrillation; I10 Essential (primary) hypertension; E78.5 Hyperlipidemia, unspecified; B34.8 Other viral infections of unspecified site; R09.02 Hypoxemia; R53.81 Other malaise; Z79.82 Long term (current) use of aspirin; Z20.822 Contact with and (suspected) exposure to COVID-19; Z66 Do not resuscitate
CPT/HCPCS: 36415; 71045; 80048; 83735; 83880; 84484; 85025; 87428; 87633; 93005; 93308; 94640; 94668; 97162; 97165; 97802; 99252; 99285; A4216; G0463; J1940

== ENCOUNTER → 2023-03-07 | Outpatient (CLI) | payer MEDICARE, OTHER, SELFPAY ==
--- OUTSIDE RECORDS SUMMARY | 2023-03-07 11:11 | XMS RPT_ITS | CCD ---
Author Name Unknown Address [address] [place] [address] Organization [facility] Care Team Providers Care Child Protective Investigator Name Role Phone VERNON GIRON Primary Care Unavailable ANA MARIA CASTRO Attending Unavailable ANA MARIA CASTRO Referring Unavailable Vernon Giron Primary Care Provider [phone] Vernon Giron Primary Care Provider Allergies Allergy Classification Reported Allergen(s) Allergy Type Date of Onset Reaction(s) Facility (3 sources) Amoxicillin Drug Allergy 09-06-2015 [place], [place] (3 sources) cefdinir Drug Allergy 09-06-2015 [place] (3 sources) heparin Drug Allergy 09-06-2015 [place] (3 sources) levoFLOXacin Drug Allergy 09-06-2015 [place] (3 sources) Amoxicillin-Pot Clavulanate Propensity to adverse reactions to drug 09-06-2015 [place] Medications Current Medications Medication Drug Class(es) Dates Sig (Normalized) Sig (Original) amLODIPine 5 mg oral tablet (3 sources) Dihydropyridine Calcium Channel [place] take 1 tablet by mouth once daily amLODIPine (NORVASC) 5 MG tablet Take 5 mg by mouth daily 0 Active apixaban 5 mg oral tablet (3 sources) Factor Xa Inhibitor take 1 tablet by mouth twice daily apixaban (ELIQUIS) 5 MG TABS tablet Take 5 mg by mouth 2 times daily 0 Active aspirin 81 mg chewable tablet (3 sources) Platelet Aggregation Inhibitor, Nonsteroidal Anti-inflammatory Drug Start: 01-18-2018 take 1 tablet by mouth once daily aspirin 81 MG chewable tablet Take 1 tablet by mouth daily 30 tablet 0 01/18/2018 Active benazepril hydrochloride 20 mg oral tablet (3 sources) Angiotensin Converting Enzyme Inhibitor Start: 01-17-2018 take 2 tablets by mouth once daily benazepril (LOTENSIN) 20 MG tablet Take 2 tablets by mouth daily 30 tablet 3 01/17/2018 Active calcium carbonate 500 mg oral tablet (3 sources) take 1 tablet by mouth twice daily calcium carbonate (OSCAL) 500 MG TABS tablet Take 500 mg by mouth 2 times daily 0 Active Completed/Discontinued Medications Medication Drug Class(es) Dates Sig (Normalized) Sig (Original) 1000 ml sodium chloride 9 mg/ml injection (2 sources) Start: 05-21-2020 End: 05-21-2020 0.9 % sodium chloride infusion Problems Active Problems Problem Classification Problem Date Documented Da te Episodic/Chronic Essential hypertension (3 sources) Hypertensive disorder; Translations: [HTN (hypertension)] Onset: 01-16-2018 01-17-2018 Chronic Osteoporosis (8 sources) Osteoporosis; Translations: [Postmenopausal osteoporosis] Onset: 04-26-2016 01-17-2018 Chronic Past or Other Problems Problem Classification Problem Date Documented Da te Episodic/Chronic Fluid and electrolyte disorders (6 sources) Hypokalemia; Translations: [Hyponatremia] Onset: 01-16-2018 01-16-2018 Episodic Nonspecific chest pain (3 sources) Chest pain; Translations: [Chest pain] Onset: 01-16-2018 01-16-2018 Episodic Results Test Name Value Interpretation Reference Range Facil ity Vital Signs Date Time Vital Sign Value Performing Clinician Mathesu wiggins 05-21-2020 11:46-0400 Body Temperature 98.1 [degF] [facility]ong [employer] Work Phone: 05-21-2020 11:46-0400 BP Diastolic 77 mm[Hg] [facility] Work Phone: 05-21-2020 11:46-0400 BP Systolic 136 mm[Hg] [facility] Work Phone: 05-21-2020 11:46-0400 Pulse (Heart Rate) 60 /min [facility] Fong [employer] Work Phone: 05-21-2020 11:46-0400 Respiratory Rate 18 /min [facility] Work Phone: 05-21-2020 11:28-0400 BMI (Body Mass Index) 31.85 kg/m2 Gonzalez [facility]ARL Work Phone: 05-21-2020 11:28-0400 Body weight 81.56 kg Gonzalez EARL Work Phone: 05-16-2019 13:50-0400 BMI (Body Mass Index) 34.54 kg/m2 Vernon Giron [employer] [facility], [place] 05-16-2019 13:50-0400 Body Temperature 97.11 [degF] [facility] , [place] 05-16-2019 13:50-0400 Body weight 88.45 kg [employer] , [place] 05-16-2019 13:50-0400 BP Diastolic 75 mm[Hg] [facility] , [place] 05-16-2019 13:50-0400 BP Systolic 156 mm[Hg] [employer] , [place] 05-16-2019 13:50-0400 Pulse (Heart Rate) 60 /[facility] [place] 05-16-2019 13:50-0400 Respiratory Rate 16 /[facility] [place] Encounters Encounter Date Encounter Type Care Provider Facility Start: 05-21-2020 End: 05-21-2020 Subsequent hospital visit by physician Gonzalez Zhu Ajit Work Phone: [facility] Procedures Date Procedure Procedure Detail Performing Clinician Start: 05-21-2020 Calcium total Gonzalez De Pazel Work Phone: Start: 05-21-2020 Creatinine blood Ajaykimmy Zhu Ajit Work Phone: Start: 05-16-2019 Calcium total Vernon alexander Work Phone: Start: 05-16-2019 Creatinine blood Vernon Giron Work Phone: Start: 04-25-2019 Dxa bone density ronald dy 1/> sites axial skel Vernon Giron Work Phone: Start: 04-25-2019 Screening digital br east tomosynthesis bi Vernon Giron Work Phone: Plan of Treatment Date Care Activity Detail Author Start: 05-24-2021 End: 05-24-2021 Appointment 05/24/2021 Appointment Infusion Therapy [facility] Start: 05-21-2021 Creatinine measurement Creatinine mo nitoring RAJAT Work Phone: Start: 05-14-2020 End: 05-14-2020 Appointment 05/14/2020 Appointment Infusion Therapy [facility] Start: 11-05-2019 Influenza vaccination Flu vaccine (# 1) MAVISA Work Phone: Start: 05-16-2019 End: 05-16-2019 Appointment 05/16/2019 Appointment Infusion Therapy [facility] Start: 01-17-2019 Creatinine monitoring Creatinine mon itoring [place] Start: 01-17-2019 Potassium [facility] [place] Start: 11-04-2018 Influenza vaccination Flu vaccine (# 1) [place] Start: 08-23-2018 Annual Wellness Visi t (AWV) Annual Wellness Visit (AWV) [place] Start: 2002 DEXA (modify frequen cy per FRAX score) DEXA (modify frequency per FRAX score) [place] Start: 2002 Pneumococcal 65+ yea rs Vaccine (1 of 1 - PPSV23) Pneumococcal 65+ years Vaccine (1 of 1 - PPSV23) [place] Start: 10-05-1987 Shingles Vaccine (1 of 2) Shingles V accine (1 of 2) [place] Start: 1956 DTaP/Tdap/Td vaccine (1 - Tdap) DTaP/Tdap/Td vaccine (1 - Tdap) [place] Start: 1953 COVID-19 Vaccine (1) COVID-19 Vaccin e (1) RAJAT Work Phone: Start: 1948 DTaP/Tdap/Td vaccine (1 - Tdap) DTaP/Tdap/Td vaccine (1 - Tdap) [place] Payers Date Payer Category Payer Medicare [id number] 2014 Medicare MEDICARE MEDICAR E PART A AND B xxxxxxxxxx 2014-Present [phone] [place] [address] xxxxxxxxxx [id number] 2014 Medicare MEDICARE MEDICAR E PART A AND B [id number] 2014-Present [phone] [place] [address] [id number] 2014 Private Health Insurance [facility] [id number] 2014 Private Health Insurance [employer] MEDICARE SUPP xxxxxxxxxxx 2014-Present [phone] [address] [place] [address] xxxxxxxxxxx [id number] 1937 Unknown [id number] Social History Date Type Detail Facility Start: 01-21-2018 End: 05-21-2020 Tobacco smoking status NHIS Never smoker [place] Start: 01-21-2018 End: 05-21-2020 Alcohol intake Current non-drinker of alcohol (finding) [place] Sex Assigned At Not on file [place] Start: 05-21-2020 Tobacco use and exposure Never used [employer] Work Phone: Summary Purpose Family History No Family History Records FoundNo Family History Records Found Advance Directives No Advanced Directives Records FoundDocuments on File Type Date Recorded 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 1530 Ordered treatment completed. Patient discharged without any issues. Patient has a copy of nextinfusion appointment and verbalizes understanding. All questions answered. documented in this encounter* Sami Joya, LYN - 05/21/2020 12:29 PM EDT Ordered treatment completed. Patient discharged without any issues. Patient has a copy of next infusion appointment and verbalizes understanding. All questions answered. 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 This clinical summary was aggregated from multiple sources. Caution should be exercised in using it in the provision of clinical care. This summary normalizes information from multiple sources, and as a consequence, information in this document may materially change the coding, format and clinical context of patient data. In addition, data may be omitted in some cases. CLINICAL DECISIONS SHOULD BE BASED ON THE PRIMARY CLINICAL RECORDS. [employer] provides no warranty or guarantee of the accuracy or completeness of information in this document.
[2023-03-07 12:19] LABS: Hematocrit 37.5 % (37-47); Mean Corpuscular Hgb 30.5 pg (27.0-32.0); Mean Corpuscular Volume 95.2 fL (81-99); Mean Platelet Vol. 10.4 fl (6.2-12.0); Platelet Count 260 K/mm3 (150-450); RBC Distribution Width SD 45.1 fl (35.1-43.9); Red Blood Count 3.94 M/mm3 (4.2-5.4); White Blood Count 6.2 K/mm3 (4.4-11.0)
[2023-03-07 12:42] LABS: Vitamin B12 348 pg/mL (211-911)
[2023-03-07 12:49] LABS: AST(SGOT) 13 U/L (15-37); Alanine Aminotransfer ALT/SGPT 14 U/L (13-56); Albumin, Serum 3.3 g/dL (3.2-5.0); Alkaline Phosphatase 83 U/L (45-117); Anion Gap 4 (5-15); BUN 19 mg/dL (7-18); BUN/Creat Ratio 20.3 RATIO (10-20); Calcium,Total 9.6 mg/dL (8.5-10.1); Chloride 108 mmol/L (98-107); Creatinine, Serum 0.93 mg/dL (0.55-1.02); EST Glomerular Filtration Rate 61 mL/min (>60); Est Glom Filt Rate - Afr Amer 73 mL/min (>60); Globulin 3.2 g/dL (2.2-4.2); Glucose 104 mg/dL (74-106); Potassium 4.4 mmol/L (3.5-5.1); Protein, Total 6.5 g/dL (6.4-8.2); Sodium Level 140 mmol/L (136-145); Thyroid Stim Hormone (TSH) 1.86 uIU/mL (0.358-3.74)
== END | disposition home or self-care (01) ==
PROVIDERS: PCP Internal Medicine; Referring Provider Psychiatry & Neurology Neurology; Visit Provider Psychiatry & Neurology Neurology
DX: F03.90 Unspecified dementia, unspecified severity, without behavioral disturbance, psychotic disturbance, mood disturbance, and anxiety (principal); I48.0 Paroxysmal atrial fibrillation
CPT/HCPCS: 36415; 80053; 82607; 82746; 84425; 84443; 85027

== ENCOUNTER → 2023-04-04 | Outpatient (CLI) | payer MEDICARE, MEDICAID, SELFPAY ==
--- NOTE | 2023-04-04 15:40 | MRI_ITS ---
STUDY: MRI BRAIN WITHOUT CONTRAST REASON FOR EXAM: Female, 87 years old. DEMENTIA, COGNITIVE DECLINE TECHNIQUE: Standardized multiplanar fat and water weighted pulse sequences were obtained. COMPARISON: 04/29/2022 MRI brain . FINDINGS: There is severe cerebral atrophy with widening of the extra-axial spaces and ventricular dilatation. There are multiple confluent white matter hyperintensities, distributed throughout the deep white matter tracts of the cerebral hemispheres, consistent with severe chronic white matter ischemic changes. Similar right frontal ventricular prominence due to underlying likely chronic volume loss. There is a punctate DWI signal within the left centrum semiovale white matter measuring 4 mm likely consistent with acute microvascular ischemic focus. No evidence of large territorial bleed. Normal T2* images of the brain without demonstrated susceptibility artifact. There is no demonstrated hemosiderin stain. There are prominent perivascular spaces (PVS) involving the basal ganglia. Normal thalami. There is no extra-axial fluid accumulation. Normal flow voids within the major intracranial circulation suggesting patency by spin echo criteria. Normal sella turcica, pituitary gland, infundibular stalk, optic chiasm and hypothalamus. Normal tectal plate and pineal gland. Normal midbrain, michael and medulla. There is mild prominence of the vermian folia, consistent with atrophy of the vermis. The cerebellar hemispheres are normal. Normal basal cisterns. Normal bilateral temporal bones. Normal bilateral internal auditory canals. No demonstrated orbital abnormality, within the constraints of a routine brain study. Normal visualized paranasal sinuses. Normal calvarium and skull base. Normal visualized soft tissue structures. Normal visualized upper cervical spine. MRI/Brain without Contrast IMPRESSION: Senescent changes with noted 4 mm DWI signal within the left centrum semiovale consistent with acute macro ischemic infarct with no evidence of large territorial ischemia. No evidence of acute intracranial bleed or mass. Overall similar appearance compared to prior MRI. Electronically Signed: David Pacheco DO at 16:35 EST ,
== END | disposition home or self-care (01) ==
LOC: MRI 15:38
PROVIDERS: PCP Internal Medicine; Referring Provider Psychiatry & Neurology Neurology; Visit Provider Psychiatry & Neurology Neurology
DX: F03.90 Unspecified dementia, unspecified severity, without behavioral disturbance, psychotic disturbance, mood disturbance, and anxiety (principal)
CPT/HCPCS: 70551

== ENCOUNTER 2024-05-29 19:29 | Inpatient (IN) | payer MEDICARE, MEDICAID, SELFPAY ==
[2024-05-29 19:30] VITALS: BP 121/56; PULSE 58; RESP 18; TEMP 36.4; O2SAT 100
[2024-05-29 19:45] VITALS: BMI 27.7
--- NOTE | 2024-05-29 20:04 | HP.PCM.HOS_ITS ---
HPI - General General Date of Admission: 05/29/24 Date of Service: 05/29/24 Chief Complaint: Fall w/ left leg fx HPI Narrative ANDREAS MARROQUIN, is a 88-year-old female with history of COPD, hypertension, paroxysmal atrial fibrillation not on anticoagulation, dementia who presented to [facility] 05/29/2024 as a transfer from [facility] ED for a left intertrochanteric fracture. Orthopedic surgeon on-call was contacted and per report is comfortable with transfer from orthopedic standpoint for repair, this was also confirmed by household chores, so hospitalist was contacted for transfer acceptance w/ ortho consultation. [facility] day of [facility] and had a witnessed fall in the day room where she fell backwards and hit the back of her head, nursing facility also noted that her left leg seems shortened and rotated prompting them to take her to the ED. In the ED patient was found to have a left intertrochanteric fracture as well as a left superior and inferior pubic rami fractures, there is a T1 age-indeterminate wedge fracture with no pain in that area or no acute complaints from patient. When family came to see patient they reported that she seemed to have a change in her smile with some left-sided droop and may be some slurring of her speech, CT head was negative for any acute process and family had last seen her and there was no report of this from the nursing facility so ED physician was unable to establish a last known well. Given patient follows with physicians associated with our hospital and does her doctoring at [facility] request for transfer was made. Of note after speaking with the ED physician I did call back to get labs and it was noted white blood cell count was 22, creatinine 1.11 and glucose 67 with no other acute abnormalities, urine was not obtained but there is no other infectious source and no pneumonia on chest x-ray. Patient was afebrile there and was mildly hypertensive with no hypotension or other vital instability per second phone call with ED physician. Patient evaluated at bedside with and granddaughter present, they report that she was in her usual health and has been doing very well as recently as Monday, today they suspect what happened as she was eating so her walker was moved out of the way and instead of somebody getting it for her she got up and tried to move resulting in her falling as she usually uses a walker to ambulate. They are unsure when the facial droop started as they report that there were too many things going on when she was getting on the stretcher for them to really notice but they did notice when she was at the other ED however they report is much better and her talking is significantly improved with only mild residual droop. Patient has no complaints whatsoever including no complaints of pain. Denies any shortness of breath, denies any changes in her bladder though daughter reports that she did have foul-smelling urine on Monday and she does get frequent UTIs. Additionally she had been on doxycycline for some URI symptoms and a cough. 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 Obesity Paroxysmal atrial fibrillation Essential (primary) hypertension Atrial fibrillation with RVR (04/13/18) Lung nodule seen on imaging study Basal cell carcinoma Home Medications ?Medication ?Instructions ?Recorded ?Last Taken ?Type aspirin 81 mg tablet,delayed 81 mg PO DAILY [facility] 04/12/18 01/18/22 History release metoprolol tartrate 25 mg tablet 25 mg PO BID BLOOD AK ESSURE #180 03/22/22 Unknown Rx tabs donepezil 10 mg tablet 10 mg PO QHS #90 tabs Unknown Rx sertraline 25 mg tablet (Zoloft) 25 mg PO DAILY #90 ta bs 04/15/22 Unknown Rx albuterol sulfate 2.5 mg/3 mL 2.5 mg (3 mL) inhalation Q2H PRN 11/21/22 Unknown Rx (0.083 %) solution for nebulization PRN SOB/Wheezing # 0 mL trimethoprim 100 mg tablet 100 mg PO QHS 12/21/22 Unkn own History cholecalciferol (vitamin D3) 25 25 mcg PO DAILY Unknown History mcg (1,000 unit) tablet d-mannose 500 mg capsule mg PO DAILY 03/07/23 Unknown History acetaminophen 500 mg tablet 1,000 mg PO TID 09/01/23 U nknown History amlodipine 5 mg tablet 5 mg PO DAILY #90 tabs 08/31 Unknown Rx memantine 10 mg tablet 10 mg PO BID 09/01/23 Unknow n History multivitamin 1 tab PO DAILY 09/01/23 Unkn own History polyethylene glycol 3350 17 17 g PO BID PRN constipati on 09/01/23 Unknown History gram/dose oral powder (Miralax) atorvastatin 20 mg tablet 20 mg PO QHS 03/11/24 Unknow n History Allergy/AdvReac Type Severity Reaction Status Date / Time amoxicillin Allergy Rash Verified 03/11/24 11:18 cefdinir Allergy Rash Verified 03/11/24 11:18 clavulanic acid (From Allergy Rash Verified 03/11/24 11:18 Augmentin) enoxaparin (From Lovenox) Allergy Rash Verified 03/11/24 11:18 heparin Allergy Rash Verified 03/11/24 11:18 levofloxacin (From Levaquin) Allergy Rash Verified 03/11/24 11:18 Family History Father Cancer Mother Hypertension Dementia Surgical History H/O basal cell carcinoma excision History of vein stripping Social History housing: [facility] Smoking Status: Never smoker alcohol intake: never substance use type: does not use ROS ROS Narrative General: Denies fever/chills HENT: Denies headache, denies stuffy nose, denies sore throat EYES: Denies changes in vision Resp: Denies cough, denies shortness of breath the daughter reports she had been having little bit of a cough which is why she was placed on doxycycline Cardiac: Denies chest pain GI: Denies abdominal pain, denies changes in bowel, denies nausea/vomiting : Denies changes in urination though daughter reports she does have some foul- smelling urine Extremity: Denies swelling MSK: Denies weakness Neuro: Denies any numbness/tingling Heme: Denies any bleeding or bruising Skin: Denies rashes Psychiatric: No complaints voiced Vital Signs Vital Signs Vital Signs: Weight Weight: 77.927 kg Body Mass Index (BMI) 27.7 Physical Exam Narrative General: Alert, no apparent distress HEENT: Atraumatic, normocephalic Eyes: Anicteric, normal conjunctiva, extraocular movements intact, pupils equal Neck: Supple Respiratory: Clear to auscultation bilaterally, normal respiratory effort Cardiovascular: Regular rate and rhythm GI: Soft, nontender, nondistended Extremities: No edema Musculoskeletal: Strength 5 - out of 5 in right upper extremity, 5 - out of 5 left upper extremity, unable to test lower extremities Neuro: Has slight flattening of left nasolabial fold otherwise cranial nerves II through XII intact, [id number] is slow but she is able to complete it Skin: Has an abrasion on her forehead Psych: Cooperative Assessment & Plan Assessment/Plan (1) Fracture, intertrochanteric, left femur: PLAN: Plan # Left intertrochanteric fracture -Seen on imaging at [facility] -Ortho was contacted and was comfortable with transfer for repair here in our institution so hospitalist contacted for the transfer -Pain control -Ortho consult # Left superior and inferior pubic rami fractures and age indeterminant T1 wedge fracture -Supportive care -Ortho consulted as above -PT/OT consults -Case management and social work # Leukocytosis -Reportedly no pneumonia on chest x-ray at [facility], UA not checked -Will check UA and urine culture, suspect this is the most likely culprit -On second phone call with ED physician it was confirmed that patient was vitally stable and not febrile prior to transfer to our facility -Upon chart review patient has had multiple UTIs in the past open daughter reports that patient has had change in urination, will obtain UA and start Rocephin as this would cover respiratory and urinary pathogens and she has been on antibiotic for concern for upper respiratory illness -Can de-escalate back to doxycycline if UA not suspicious for urine culture negative #Elevated creatinine -Creatinine 1.11 in [facility] with baseline 0.9, gentle IV fluids # Alterations in speech with left-sided facial droop -Family last saw patient on Monday and reported this was not present so is unclear when this happened and [facility] ED was unable to establish a last known well -Admit to tele - CT at [facility] with no acute process -MRI and MRA head and carotid duplex, given kidney function up from baseline will avoid CTA at this time especially given patient has unknown last known well -NIH q4hr -asa, statin -Echo ordered, last echo 11/19/2022 with a EF of 70% no evidence of diastolic dysfunction per cardiology office visit note -PT/OT/Speech eval -Teleneuro consult ordered #Slight low glucose -Glucose 67 outlying facility -Will initiate glucose checks to verify if patient is becoming hypoglycemic #Paroxysmal Atrial Fibrillation -Rate control: metoprolol, will decrease as heart rate at 60 -Anticoagulation: not on anticoagulation given her history of falls #Hypertension -Tends to fluctuate, will hold home amlodipine until assessing patient tolerability with pain control # COPD -Continue home inhalers if applicable -Albuterol as needed #Dementia -Previous MRI showed severe diffuse cerebral atrophy with severe chronic small vessel ischemic disease and a acute punctate left centrum ovale ischemic stroke noted on head MRI April 2023 -Supportive care -Patient follows with Dr. Sutton on an outpatient basis for this -Continue home memantine but given patient a little bit bradycardic will hold donepezil for now #Depression/anxiety -Continue home medications #DVT ppx: SCDs Saima Richardson MD Time spent in the patient's overall evaluation, decision-making process, review of diagnostic data, adjustment of management, discussion with other providers, nursing and ancillary staff involved in patient's care documentation, 79 Minutes Charges/Coding Visit Charges Inpatient E&M: 61366 Init Hosp L3
--- NOTE | 2024-05-29 20:10 | CDU_ITS ---
Reason For Study Reason For Study: CVA R/O Rt. Velocities/BP Lt. Velocities/BP Prox CCA 54.6/8 cm/sec. Prox CCA 52.8/7.8 cm/sec. Mid CCA 56.7/10.8 cm/sec. Mid CCA 62.9/11.5 cm/sec. Dist CCA 59.8/9.7 cm/sec. Dist CCA 62.6/11.6 cm/sec. Prox ICA 46.6/8.8 cm/sec. Prox ICA 91.6/12.4 cm/sec. Mid ICA 81.5/14.5 cm/sec. Mid ICA 82.8/17.9 cm/sec. Dist ICA 67.4/11.6 cm/sec. Dist ICA 67.4/17.9 cm/sec. Rt. ICA/CCA = 1.44. Lt. ICA/CCA = 1.46. Prox ECA 133.9 cm/sec. Prox ECA 130.2 cm/sec. Rt. Vert. 64.5/6 cm/sec. Lt. Vert. 52.2/9.7 cm/sec. Right Extracranial There is homogeneous, smooth atherosclerotic plaque noted in the right common carotid artery. There is homogeneous, smooth atherosclerotic plaque noted in the right internal carotid artery. There is intimal thickening but no significant atherosclerotic plaque noted in the right external carotid artery. Antegrade flow is noted in the right vertebral artery. Left Extracranial There is homogeneous, smooth atherosclerotic plaque noted in the left common carotid artery. There is homogeneous, smooth atherosclerotic plaque noted in the left internal carotid artery. There is heterogeneous, irregular atherosclerotic plaque noted in the left external carotid artery. Antegrade flow is noted in the left vertebral artery. Procedure Carotid Duplex 65369. This is a Carotid Duplex examination using B-mode, color flow and specral Doppler. VL/Carotid Duplex Ultrasound Interpretation Summary Mild (<50%) stenosis right extracranial internal carotid. Mild (<50%) stenosis left extracranial internal carotid. Patent and antegrade vertebrals bilaterally. Ordering Physician: Saima Richardson Referring Physician: Levon White Performed By: Coco Mason RVT
--- NOTE | 2024-05-29 20:13 | ECHOD_ITS ---
Reason For Study Reason For Study: TIA/CVA Procedure This was a 2D Doppler, Color Flow transthoracic echocardiogram. The study was technically difficult. Patient scanned supine. Patient unable to valsalva. Exam performed portable in patient room. Left Ventricle Normal LV size. Left ventricular systolic function is normal. The left ventricular ejection fraction is 65 %. Stage 1 diastolic dysfunction. Resting LV gradient 18 mmHg. No regional wall motion abnormalities noted. Right Ventricle Normal RV size. Normal systolic function. Atria Normal left atrium. Normal right atrium. Mitral Valve Normal mitral valve. Tricuspid Valve Normal tricuspid valve. Mild (1+) tricuspid valve insufficiency. Pulmonary artery systolic pressure is 38 mmHg. Aortic Valve Trisinus/trileaflet aortic valve. Pulmonic Valve Normal pulmonic valve. Great Vessels Normal aortic root. The pulmonary artery is normal size. Inferior vena cava collapse with respiration. Pericardium/Pleural No pericardial effusion. MMode/2D Measurements & Calculations LVIDd: 3.1 cm IVSd: 1.1 cm Ao root diam: 3.0 cm LVIDs: 1.5 cm LVPWd: 1.0 cm RVDd: 2.8 cm FS: 52.5 % LAV(MOD-bp): 20.4 ml LA A4 area: 11.3 cm2 LA dimension(2D): 3.1 cm LAV(MOD-bp) Indexed: 10.9 ml/m2 LAV(MOD-sp2): 17.9 ml LAV(MOD-sp4): 21.5 ml Doppler Measurements & Calculations MV E max frederick: 52.7 cm/sec Lat Peak E' Frederick: 8.4 cm/sec Med Peak E' Frederick: 5.9 cm/sec MV A max frederick: 113.8 cm/sec E/E' lat: 6.3 E/E' med: 8.9 MV E/A: 0.46 Ao V2 max: 157.0 cm/sec LV V1 max: 118.5 cm/sec PA V2 max: 117.7 cm/sec Ao max P.9 mmHg LV V1 max P.6 mmHg Ao V2 mean: 106.3 cm/sec LV V1 mean P.0 mmHg Ao mean P.0 mmHg LV V1 mean: 96.3 cm/sec Ao V2 VTI: 25.1 cm LV V1 VTI: 22.7 cm AV (velocity ratio): 0.91 TR max frederick: 295.5 cm/sec TR max P.9 mmHg ECHO/Echo Complete Interpretation Summary Normal LV size. Left ventricular systolic function is normal. The left ventricular ejection fraction is 65 %. Stage 1 diastolic dysfunction. Pulmonary artery systolic pressure is 38 mmHg. Ordering Physician: Saima Richardson Referring Physician: Levon White Performed By: Saige Taylor RDCS
[2024-05-29 20:24] VITALS: O2SAT 95
[2024-05-29] MEDS: 0.9% Normal Saline (1000mL) 1,000 ML 50 ML IV (20:59)
[2024-05-29 22:00] VITALS: BP 123/55; PULSE 61; RESP 18; TEMP 36.1; O2SAT 95
--- NOTE | 2024-05-29 22:09 | CONS.ORTHO ---
HPI Consult Data Date of Consult: 05/29/24 HPI Narrative Reason for Consultation: Left hip fracture HPI Narrative: ANDREAS MARROQUIN, is a 88 F who presented to [facility] emergency department earlier this afternoon after apparent unwitnessed fall at her nursing facility. History was obtained from granddaughter and son who are at bedside. Patient has significant dementia. She does ambulate at her nursing facility with limited assistance. The suspect her walker was out of reach and patient attempted to ambulate and unfortunately fell. She was brought to the emergency department at [facility] and x-rays revealed a displaced left intertrochanteric femur fracture. There was note of a facial droop which is since resolved. Family notes history of mini strokes in the past. Patient is able to answer yes/no questions, follows commands but poor historian. Family was helpful in obtaining history. Family notes limited knowledge of her surgical history put her unaware of any specific anesthetic complication. Noted history of superficial venous thrombosis, no history of DVT or PE noted in my review of her medical record. There was question of pubic rami fractures on the left on x-rays today. Family notes history of a fall and noted fractures in her pelvis 2 years ago. 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 Obesity Paroxysmal atrial fibrillation Essential (primary) hypertension Atrial fibrillation with RVR (04/13/18) Lung nodule seen on imaging study Basal cell carcinoma Home Medications ?Medication ?Instructions ?Recorded ?Last Taken ?Type aspirin 81 mg tablet,delayed 81 mg PO DAILY [facility] 04/12/18 01/18/22 History release metoprolol tartrate 25 mg tablet 25 mg PO BID BLOOD PRESSURE #180 03/22/22 Unknown Rx tabs donepezil 10 mg tablet 10 mg PO QHS #90 tabs 04/15/22 Unknown Rx sertraline 25 mg tablet (Zoloft) 25 mg PO DAILY #90 tabs 04/15/22 Unknown Rx albuterol sulfate 2.5 mg/3 mL 2.5 mg (3 mL) inhalation Q2H PRN 11/21/22 Unknown Rx (0.083 %) solution for nebulization PRN SOB/Wheezing #0 mL trimethoprim 100 mg tablet 100 mg PO QHS 12/21/22 Unknown History cholecalciferol (vitamin D3) 25 25 mcg PO DAILY 03/07/23 Unknown History mcg (1,000 unit) tablet d-mannose 500 mg capsule mg PO DAILY 03/07/23 Unknown History acetaminophen 500 mg tablet 1,000 mg PO TID 09/01/23 Unknown History amlodipine 5 mg tablet 5 mg PO DAILY #90 tabs 09/01/23 Unknown Rx memantine 10 mg tablet 10 mg PO BID 09/01/23 Unknown History multivitamin 1 tab PO DAILY 09/01/23 Unknown History polyethylene glycol 3350 17 17 g PO BID PRN constipation 09/01/23 Unknown History gram/dose oral powder (Miralax) atorvastatin 20 mg tablet 20 mg PO QHS 03/11/24 Unknown History Allergy/AdvReac Type Severity Reaction Status Date / Time amoxicillin Allergy Rash Verified 03/11/24 11:18 cefdinir Allergy Rash Verified 03/11/24 11:18 clavulanic acid (From Allergy Rash Verified 03/11/24 11:18 Augmentin) enoxaparin (From Lovenox) Allergy Rash Verified 03/11/24 11:18 heparin Allergy Rash Verified 03/11/24 11:18 levofloxacin (From Levaquin) Allergy Rash Verified 03/11/24 11:18 Family History Father Cancer Mother Hypertension Dementia Surgical History H/O basal cell carcinoma excision History of vein stripping Social History housing: skilled nursing Smoking Status: Never smoker alcohol intake: never substance use type: does not use ROS ROS Narrative Unable to obtain accurately due to mental status Vital Signs Vital Signs Vital Signs: Weight Weight: 171 lb 12.8 oz Body Mass Index (BMI) 27.7 Physical Exam Narrative General -A&Ox person and place, NAD, appears stated age. Vital signs stable, afebrile. Respiratory -normal work of breathing, no intercostal retractions. CV -pulses regular, brisk capillary refill ?4 limbs. Abdomen-soft, nontender, nondistended. No guarding, rigidity, rebound tenderness. Musculoskeletal/neurologic -full range of motion nontender throughout bilateral upper extremities, right lower extremity with full sensation and strength in all dermatomes and myotomes. No midline cervical tenderness. Nontender over T1 spinous process. Left lower extremity-no obvious deformity. Pain with logroll of the left lower extremity. Nontender throughout the left knee femoral shaft, tibial shaft and left foot/ankle. Brisk capillary refill. Sensation intact light touch L3-S1 dermatomes. DF, PF, EHL intact. DP, PT 2+. Pelvis is stable, nontender. Skin is intact without lacerations, abrasions. No ecchymosis noted. Imaging X-rays and CT scans reviewed from [facility] 05/29/2024 X-rays revealed acute displaced, comminuted intertrochanteric left femur fracture Remote deformity/healed pubic rami fractures on the left Calcified fibroid noted on prior films measuring 5.6 x 5.1 on the right pelvic region CT head-no intracranial abnormality CT C-spine age-indeterminate mild to moderate anterior wedging of T1 vertebral body Chest x-ray-no acute cardiopulmonary process Assessment & Plan Assessment/Plan (1) Fracture, intertrochanteric, left femur: QUALIFIERS: Encounter type: initial encounter Fracture type: closed Fracture alignment: displaced Qualified Code(s): S72.142A - Displaced intertrochanteric fracture of left femur, initial encounter for closed fracture PLAN: Patient sustained a left intertrochanteric proximal femur fracture. -Closed, neurovascularly intact -Isolated injury. Remote pelvic fracture and chronic Wedge deformity of T1. -Recommending surgical intervention in the form of left femur cephalomedullary nailing -I discussed the procedure-its risks, benefits and alternative. Risks include but are not limited to bleeding, infection, loss of life or limb, risk of anesthesia, persistent pain or disability, need for additional surgery, nonunion, malunion, failure of orthopedic hardware, neurovascular injury, DVT or PE. The patient's POA, son, expressed understanding these risks and wished proceed with surgery. -Medical optimization per primary -Maintenance IV fluids, clear liquid diet after midnight n.p.o. at 2 hours prior to surgery -Type and screen - [facility] on-call to the OR -Bedrest, heel protectors -Plan to proceed with surgery later tomorrow when OR becomes available pending medical optimization Thank you for this consultation.
[2024-05-29] MEDS: Memantine Hydrochloride 10 MG Tablet PO (23:03)
[2024-05-29] MEDS: Atorvastatin Calcium 40 MG Tablet PO (23:03)
[2024-05-29 23:04] VITALS: BP 123/55; PULSE 71
[2024-05-29] MEDS: Metoprolol Tartrate 25 MG Tablet 12.5 MG PO (23:04)
[2024-05-29] MEDS: Acetaminophen 500 MG Tablet 1000 MG PO (23:06)
[2024-05-30] VITALS (15 sets, daily range): BP systolic 84–131; BP diastolic 44–78; PULSE 60–118; RESP 16–18; TEMP 36.1–37; O2SAT 89–99; BMI 27.7
[2024-05-30 00:08] LABS: Bedside Glucose 163 mg/dL (74-106)
[2024-05-30 01:03] LABS: Color, Urine Yellow (Yellow); Glucose, Dipstick Normal (Normal); Ketone-Dipstick Negative (Negative); Leukocyte Esterase-Dipstick 25 /ul (Negative); Nitrite-Dipstick Negative (Negative); Occult Blood-Urine Negative /ul (Negative); Protein-Dipstick 30 mg/dl (Negative); Specific Gravity, Urine 1.015 (1.002-1.030); Urine Bilirubin Dipstick Negative (Negative); Urine Clarity Clear (Clear); Urine Urobilinogen Normal (Normal)
[2024-05-30 01:07] LABS: Bacteria 2+ /hpf (None Seen); Mucous, Urine 0 SEEN /hpf (<or=2+); Red Blood Cells-Urine 0 SEEN /hpf (0-5); Renal Epithelial Cells 0-5 SEEN /hpf (0-5); Squamous Epithelial Cells - UA 0-5 SEEN /hpf (5-10); White Blood Cells 0-5 SEEN /hpf (0-5)
[2024-05-30 01:08] LABS: Amorphous Sediment 1+
--- NOTE | 2024-05-30 05:55 | EKG12_ITS ---
Test Reason : AM EKG Blood Pressure : */* mmHG Vent. Rate : 72 BPM Atrial Rate : 72 BPM P-R Int : 184 ms QRS Dur : 80 ms QT Int : 384 ms P-R-T Axes : 41 3 4 degrees QTcB Int : 420 ms Normal sinus rhythm with sinus arrhythmia Possible Inferior infarct , age undetermined Abnormal ECG When compared with ECG of 19-Nov-2022 15:17, Aberrant conduction is no longer Present Confirmed by LYNNETTE LI, ROSALIO ([id number]), advertising editor RYAN SANDERS ([id number]) on 05/30/2024 12:52:54 PM Referred By: Confirmed By: ROSALIO CHURCH MD
[2024-05-30 05:57] LABS: Absolute Lymphocyte Count 1.74 X10^3/uL (0.83-4.51); Absolute Neutrophil Count 8.1 X10^3/uL (2.0-7.7); Basophil# 0.02 X10^3/uL; Basophil% 0.2 % (0-1); Eosinophil# 0.01 X10^3/uL; Eosinophils% 0.1 % (0-5); Hematocrit 29.6 % (37-47); Hemoglobin 9.8 g/dL (12.0-15.0); Lymphocyte # 1.74 X10^3/ul (0.83-4.51); Lymphocyte % 15.8 % (19-41); Mean Corp Hgb Conc 33.1 g/dL (32-36); Mean Corpuscular Hgb 31.4 pg (27.0-32.0); Mean Corpuscular Volume 94.9 fL (81-99); Mean Platelet Vol. 9.7 fl (6.2-12.0); Monocyte# 1.08 X10^3/uL; Monocyte% 9.8 % (0-10); NRBC Flagged by Analyzer 0 % (0-5); Neutrophil # 8.07 X10^3/uL (2.7-7.7); Neutrophil % 73.6 % (47-70); Platelet Count 195 K/mm3 (150-450); RBC Distribution Width CV 13.9 % (11.6-14.6); RBC Distribution Width SD 47.8 fl (35.1-43.9); Red Blood Count 3.12 M/mm3 (4.2-5.4)
[2024-05-30 06:07] LABS: Prothrombin Time (Protime)PT. 13.5 SECONDS (11.7-14.9)
[2024-05-30] MEDS: Dextrose 10%-Water 250 ML 999 ML IV (06:13)
[2024-05-30 06:20] LABS: Anion Gap 9 (5-15); BUN 35 mg/dL (4-19); BUN/Creat Ratio 28.6 RATIO (10-20); Calcium,Total 8.5 mg/dL (7.6-11.0); Carbon Dioxide 24.8 mmol/L (21.0-32.0); Chloride 102 mmol/L (98-108); Creatinine, Serum 1.21 mg/dL (0.70-1.20); EST Glomerular Filtration Rate 44 (>60); Estimated Creatinine Clearance 35.17 ml/min (50-250); Glucose 75 mg/dL (70-99); Potassium 4.6 mmol/L (3.3-5.1); Sodium Level 135 mmol/L (133-145)
[2024-05-30 06:44] LABS: Hemoglobin A1c 5.1 % (<=5.6)
--- NOTE | 2024-05-30 06:57 | RAD_ITS ---
PROCEDURE: HIP, UNI W/ PELVIS 2-3 VIEWS 05/30/2024 REASON FOR EXAM: FX TECHNIQUE: Three views of the left hip. COMPARISON: Pelvis x-ray dated 01/18/2022. FINDINGS: 3 intraoperative images of the left hip operative evaluation. Patient is status post transfemoral nail in of the left hip. Near anatomic alignment. Comminuted fracture remains within the proximal left hip with fracture components including the lesser trochanter in abnormal position. RAD/HIP, UNI W/ Pelvis 2-3 Views IMPRESSION: Status post left hip ORIF. Follow-up until healing. Reading Location: [id number]
[2024-05-30 07:04] LABS: Bedside Glucose 65 mg/dL (74-106)
[2024-05-30 07:05] LABS: Bedside Glucose 126 mg/dL (74-106)
[2024-05-30 07:16] LABS: Cholesterol 117 mg/dL (<=200); High Density Lipoprotein 71 mg/dL; Low Density Lipoprotein Calc. 19 mg/dL; Triglycerides 133 mg/dL; Very Low Density Lipoprotein 27 mg/dL (5-40); cholesterol:hdl ratio screen 1.64
--- NOTE | 2024-05-30 07:34 | PN.HOSP_ITS ---
Reason for Visit Reason for Visit: Diagnoses Displaced intertrochanteric fracture of left femur, initial encounter for closed fracture (05/29/24) Subjective Subjective Family had noted left facial droop with the patient presented. Patient did not have her teeth and though at the time but was much more pronounced than they had seen previously. Objective Data Objective Data Vital Signs: Vital Signs Temp Pulse Resp BP Pulse Ox O2 Del Method O2 Flow Rate 36.8 C 74 18 111/52 L 94 Nasal Cannula 2 05/30/24 06:00 05/30/24 06:00 05/30/24 06:00 05/30/24 06:00 05/30/24 06:00 05/30/24 06:00 05/30/24 06:00 Oxygen Flow Rate (L/min) 2 Oxygen Delivery Method Nasal Cannula Weight: 77.927 kg Body Mass Index (BMI) 27.7 Intake & Output: Intake and Output for Last 24 Hours 05/28/24 05/29/24 05/30/24 23:59 23:59 23:59 Intake Total 525 / 525 Output Total 550 / 550 Balance - Lab / Micro Data 05/30/24 05:30 05/30/24 05:30 Labs: Laboratory Results - last 24 hr 05/29/24 22:30: Urine Color Yellow, Urine Clarity Clear, Urine pH 6.0, Ur Specific [place] 1.015, Urine Protein 30 H, Urine Glucose (UA) Normal, Urine Ketones Negative, Urine Occult Blood Negative, Urine Nitrite Negative, Urine Bilirubin Negative, Urine Urobilinogen Normal, Ur Leukocyte Esterase 25 H, Urine RBC 0 SEEN, Urine WBC 0-5 SEEN, Ur Squamous Epith Cells 0-5 SEEN, Ur Renal Epithelial Cell 0-5 SEEN, Amorphous Sediment 1+, Urine Bacteria 2+, Urine Mucus 0 SEEN 05/29/24 22:45: POC Glucose 163 H 05/30/24 05:30: WBC 11.0, RBC 3.12 L, Hgb 9.8 L, Hct 29.6 L, MCV 94.9, MCH 31.4, MCHC 33.1, RDW Std Deviation 47.8 H, RDW Coeff of Dave 13.9, Plt Count 195, MPV 9.7, Immature Gran % (Auto) 0.500, Neut % (Auto) 73.6 H, Lymph % (Auto) 15.8 L, [place] % (Auto) 9.8, Eos % (Auto) 0.1, Baso % (Auto) 0.2, Absolute Neuts (auto) 8.1 H, Absolute Lymphs (auto) 1.74, Nucleated RBC % 0, PT 13.5, INR 1.0, Sodium 135, Potassium 4.6, Chloride 102, Carbon Dioxide 24.8, Anion Gap 9, BUN 35 H, C reatinine 1.21 H, Estim Creat Clear Calc 35.17 L, Est GFR (MDRD) Non-Af 44 L, B UN/Creatinine Ratio 28.6 H, Glucose 75, Hemoglobin A1c 5.1 L, Calcium 8.5, Triglycerides 133, Cholesterol 117, LDL Cholesterol, Calc 19, VLDL Cholesterol 27, HDL Cholesterol 71, Cholesterol/HDL Ratio 1.64, Blood Type O NEGATIVE, Antibody Screen NEGATIVE 05/30/24 06:09: POC Glucose 65 L 05/30/24 06:45: POC Glucose 126 H Physical Exam Const alert and no apparent distress HEENT head/scalp atraumatic and moist oral mucous membranes HEENT Narrative: Edentulous. There is noted facial asymmetry with more prominent facial crease on her left lower face below her mouth. Nasolabial folds bilaterally are symmetric. Resp normal respiratory effort and no retractions Extremity Extremity Narrative: Shortened left lower extremity compared to The right Assessment & Plan Assessment/Plan (1) Fracture, intertrochanteric, left femur: QUALIFIERS: Encounter type: initial encounter Fracture alignment: displaced Fracture type: closed Qualified Code(s): S72.142A - Displaced intertrochanteric fracture of left femur, initial encounter for closed fracture PLAN: s/p fall. Seen by orthopaedics, plan for OR today. check 25 OH d level. (2) Pubic ramus fracture: PLAN: Non-surgical. (3) Slurred speech: PLAN: Family is most concerned because they noted a left facial droop. MRI brain negative. On my evaluation, patient does have some facial asymmetry with being more notable on the left. I suspect the patient's family had seen that when the patient's dentures were not in and noticed how prominent it was. I do not feel any additional stroke workup is necessary. Patient will not require any further neurologic workup at this time. PLAN: Plan Chronic conditions: * HTN: amlodipine on hold * Dementia: donepezil * Depression: sertraline VTE prophylaxis: SCDs. Discussed with family at bedside. Will transfer the patient to the general medical floor. Charges/Coding Visit Charges Inpatient E&M: 49337 Subs Hosp L2
[2024-05-30] MEDS: 0.9% Saline Lock 10 ML Syringe IV ×2 (08:42→21:34)
--- NOTE | 2024-05-30 09:00 | MRI_ITS ---
PROCEDURE: MRA HEAD ONLY WITHOUT CONTRAST 05/30/2024 REASON FOR EXAM: CVA R/O COMPARISON: 05/30/2024 TECHNIQUE: 3D Time of Flight MRA of the head without intravenous contrast. 3D reformatted images were provided. FINDINGS: Anatomy: The left intracranial vertebral artery is dominant. A left-sided posterior communicating artery is noted. Anterior Circulation: No stenosis, occlusion or aneurysm. Posterior Circulation: No stenosis, occlusion or aneurysm. MRI/MRA Head ONLY without Contrast IMPRESSION: 1. Normal MRA exam of the head. [facility]
--- NOTE | 2024-05-30 09:00 | MRI_ITS ---
PROCEDURE: BRAIN WITHOUT CONTRAST 05/30/2024 REASON FOR EXAM: CVA R/O TECHNIQUE: Brain MRI without intravenous contrast. COMPARISON: 04/04/2023; 05/30/2024 FINDINGS: No evidence of acute ischemia or mass lesion.No intracranial hemorrhage. The ventricles and sulci are prominent due to global parenchymal volume loss. There is mild asymmetric dilatation of the frontal horn of the right lateral ventricle due to ex vacuo dilatation.Moderate patchy confluent areas of periventricular white matter hypoattenuation appear similar to the previous exam, and is likely due to chronic ischemic microangiopathy.No extra-axial collection or midline shift. The posterior fossa structures are within normal limits. The orbits and paranasal sinuses are unremarkable.The calvarium and soft tissues are unremarkable. MRI/Brain without Contrast IMPRESSION: 1. No evidence of acute ischemia. 2. Moderate chronic deep white matter disease appear similar to the previous ex am and is likely due to chronic ischemic microangiopathy. 3. Atrophy. Reading Location: [facility]
[2024-05-30 09:02] LABS: Vitamin D,25 Hydroxy 28.2 ng/mL (30-100)
--- NOTE | 2024-05-30 09:53 | CASEMGMT ---
Patient is from [facility]. ANNALISA spoke with patient's son Javier. ANNALISA introduced self and role at [facility]. ANNALISA asked Javier if the plan is for patient to return to [facility] at d/c. Javier said he is not sure at this time. Patient really likes it there, but he feels [facility] is not being truthful about what happened. ANNALISA asked Javier if he would like a list of other facilities that take patient's insurance while he thinks about it. Javier said he would like that. ANNALISA asked Princess to print a SNF list. Essence Elliott SCRAP SAWYER BERTIN
--- NOTE | 2024-05-30 10:00 | NURSING ---
Patient's NIHSS not completed at 1000, as patient was off the floor getting MRI. NIHSS will be completed when patient returns.
--- NOTE | 2024-05-30 10:15 | CASEMGMT ---
Discharge Planning A list of?SNF providers including quality and resource use data and consistent with the patient's preferred geographic region, medical needs, and insurance network was created in [employer] Guide.? This list was provided to the SW. Princess Stone Discharge Planning Asst.
--- NOTE | 2024-05-30 10:27 | CASEMGMT ---
ANNALISA provided patient's son Javier with a SNF list. ANNALISA also provided him with information on the [facility] care ombudsman at [facility]. ANNALISA told Javier he could call the ombudsman with his concerns. Javier thanked ANNALISA for the assistance. Essence DENTON
[2024-05-30] MEDS: Ceftriaxone 1 GM/50 ML BAG IV (11:15)
[2024-05-30 11:42] LABS: Bedside Glucose 77 mg/dL (74-106)
--- NOTE | 2024-05-30 12:38 | PRE.ANES_ITS ---
ASA Classification* ASA Classification ASA Classification: 4 and E Assessment & Plan Anesthesia* Anesthesia Assessment Anesthesia Assessment: Discussed sedation and/or anesthesia options, risks, benefits, and alternatives with patient/parents/legal guardian/POA. Questions invited. The patient/parents/legal guardian/POA seems to understand and agrees to proceed with anesthesia plan. Reviewed the physical assessment, medical history, allergy history and patient home medications list prior to surgery/procedure/anesthetic and documented any changes. Performed airway and anesthesia risk assessments. Anesthesia Type Anesthesia Type: General History Source History Obtained from:: Patient and Chart Anesthesia Focused Assessment* Temperature: 98.3 F Pulse Rate: 89 Blood Pressure: 100/54 Respiratory Rate: 17 Pulse Ox: 95 Oxygen Delivery Method: Nasal Cannula Oxygen Flow Rate (L/min): 2 Airway Assessment Mouth opens: 2 cm Mallampati Score: IV Teeth Condition: Dentures (Patient has full upper and lower dentures. They are out.) Neck Range of motion (ROM): Limited ROM Focused Labs Anesthesia Preop lab: CBC WBC 11.0 K/mm3 (4.4-11.0) 05/30/24 05:30 05/30/24 RBC 3.12 M/mm3 (4.2-5.4) L 05/30/24 05:30 05/30/24 Hgb 9.8 g/dL (12.0-15.0) L 05/30/24 05:30 05/30/24 Hct 29.6 % (37-47) L 05/30/24 05:30 05/30/24 Plt Count 195 K/mm3 (150-450) 05/30/24 05:30 05/30/24 CHEMISTRY Potassium 4.6 mmol/L (3.3-5.1) 05/30/24 05:30 05/30/24 Sodium 135 mmol/L (133-145) 05/30/24 05:30 05/30/24 Magnesium 2.0 mg/dL (1.6-2.6) 11/20/22 05:10 11/20/22 BUN 35 mg/dL (4-19) H 05/30/24 05:30 05/30/24 Creatinine 1.21 mg/dL (0.70-1.20) H 05/30/24 05:30 Glucose 75 mg/dL (70-99) 05/30/24 05:30 05/30/24 POC Glucose 77 mg/dL (74-106) 05/30/24 11:23 05/30/24 TSH 1.86 uIU/mL (0.358-3.74) 03/07/23 10:21 COAG PT 13.5 SECONDS (11.7-14.9) 05/30/24 05:30 Pre-Assessment Diagnosis/Proposed Procedure Planned Operative Procedure(s): Left hip open reduction internal fixation. Gamma nail. 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 When Was Last Pacemaker Check QUESTION #4 FULL TEXT: You/Your Family Experience fever (hyperthermia) with Anesthesia Last Oral Intake Last Oral intake: Last Oral Intake NPO since 00:00 05/30/24 10:44 Meds taken in AM with sips of No 05/30/24 10:44 water? Meds patient instructed to take am of surgery PONV PONV - resource room special education teacher: PONV - resource room special education teacher Female HX of Motion Sickness HX of N/V After Surgery Non-Smoker Duration of Surgery greater than 60 minutes Number of Risk Factors PONV Score Height & Weight Height & Weight: Anesthesia: Height & Weight Height 5 ft 6 in 05/30/24 09:26 Weight: 77.92 kg 05/30/24 10:44 Body Mass Index (BMI) 27.7 05/30/24 06:00 Respiratory Assessment Respiratory Assessment - resource room special education teacher: Respiratory Tract Infection Hx - resource room special education teacher Hx Respiratory Tract Infection Any additional information?: Yes Hx Respiratory Tract Infection: Yes (upper respiratory infection last week treated with antibiotics.) STOP Sleep Apnea STOP Sleep Apnea - resource room special education teacher: STOP Sleep Apnea - resource room special education teacher Hx Hypertension Yes 05/30/24 10:26 Hx Sleep Apnea No 05/29/24 19:45 CPAP BIPAP Do you snore loudly (louder No 05/29/24 19:45 than talking or can be heard Do you often feel tired/ No 05/29/24 19:45 fatigued/ sleepy during daytime? Has anyone observed you stop No 05/29/24 19:45 breathing during sleep? STOP Results Negative 05/29/24 19:45 QUESTION #5 FULL TEXT : Do you snore loudly (louder than talking or can be heard through closed doors)? Tobacco Use History Tobacco Use History - resource room special education teacher: Tobacco Use History - resource room special education teacher Tobacco Use Non-smoker 05/30/24 10:26 Smoking Status Never smoker 05/30/24 10:26 Hx Tobacco Use No 05/29/24 19:45 Years Smoking Packs Smoked per Day Smoking Cessation Date was within the last 15 years Hx Smoking Cessation Date Hx Smoking Cessation No 05/30/24 10:26 Counseling Hematologic Medial History Hematologic Hx - resource room special education teacher: Hematologic Medical Hx - global manager Hx of Blood Transfusion No 05/29/24 19:45 Hx of Transfusion in last 3 No 05/29/24 19:45 Months Date of Last Transfusion (if within last 3 months) Ever experience any problems No 05/29/24 19:45 with transfusion(s)? Specify any problems Hx of Preganancy in last 3 No 05/29/24 19:45 Months Nurse Filling Out Transfusion AREAD 05/29/24 19:45 & Questions: Date: 05/29/24 05/29/24 19:45 Time: 20:02 05/29/24 19:45 Patient unable to answer at this time (ie. confused, unrespo /Reproduction History /Reproductive History - resource room special education teacher: /Reproductive Hx- resource room special education teacher Hx Now Gestational Age (in weeks): EDC: Hx Hx Para Hx Section SAB Active Medications Active Medications: Current Medications Generic Name Dose Route Start Last Admin Trade Name Freq PRN Reason Stop Dose Admin Acetaminophen 1,000 mg 05/29/24 22:00 05/30/24 06:31 Acetaminophen 500 Mg Tablet PO Not Given Q8 GINNY Albuterol Sulfate 2.5 mg 05/29/24 20:05 Albuterol 2.5 Mg/3 Ml Vial.Neb. INHALATION Q2H PRN PRN SOB &/OR WHEEZING Aspirin 81 mg 05/30/24 08:00 Aspirin 81 Mg Tab.Chew PO BREAKFAST GINNY Atorvastatin Calcium 40 mg 05/29/24 22:00 05/29/24 23:03 Atorvastatin Calcium 40 Mg Tablet PO 40 mg QHS GINNY Administration Glucagon 1 mg 05/29/24 20:05 Glucagon 1 Mg/Ml Syringe IM X1 PRN HYPOGLYCEMIA Protocol Hydralazine HCl 5 mg 05/29/24 20:10 Hydralazine 20 Mg/Ml Vial IV 05/30/24 20:12 Q30M PRN maintain BP parameters with HR <60 Dextrose 250 mls @ 0 mls/hr 05/29/24 20:05 05/30/24 06:28 Dextrose 10%-Water IV Infused .Q0M PRN Infusion HYPOGLYCEMIA Protocol As Directed Sodium Chloride 100 mls @ 15 mls/hr 05/29/24 21:00 IV .Q6H40M PRN Saline Flush Sodium Chloride 100 mls @ 15 mls/hr 05/29/24 21:00 IV .Q6H40M PRN Additional IVPB Infusion Ceftriaxone Sodium 1 gm in 50 mls @ 100 mls/hr 05/30/24 10:00 05/30/24 12:07 Rocephin IV Infused Q24 GINNY Infusion Labetalol HCl 10 - 20 mg 05/29/24 20:10 Labetalol 20mg/4ml Syringe IV 05/30/24 20:12 Q10M PRN PRN maintain BP parameters with HR >/=60 Lorazepam 0.5 mg 05/29/24 21:30 Lorazepam 0.5 Mg Tablet PO X1 PRN Anxiety with MRI Melatonin 3 mg 05/29/24 20:05 Melatonin 3 Mg Tablet PO QHS PRN PRN INSOMNIA Memantine 10 mg 05/29/24 22:00 05/29/24 23:03 Memantine Hydrochloride 10 Mg Tablet PO 10 mg BID GINNY Administration Metoprolol Tartrate 12.5 mg 05/29/24 22:00 05/30/24 10:00 Metoprolol Tartrate 25 Mg Tablet PO Not Given BID [facility] Protocol Morphine Sulfate 2 - 4 mg 05/29/24 20:05 Morphine 2 Mg/Ml Syringe IV Q3H PRN PRN Pain Score 6-10 Ondansetron HCl 4 mg 05/29/24 20:05 Ondansetron 4 Mg/2 Ml Vial IV Q8H PRN PRN NAUSEA/VOMITING Oxycodone HCl 2.5 - 5 mg 05/29/24 22:30 Oxycodone 5 Mg Tablet PO Q4H PRN PRN MODSEVPAIN Senna/Docusate Sodium 2 tablet 05/29/24 20:05 Senna/Docusate Sodium 1 Tablet PO BID PRN PRN Constipation Sertraline HCl 25 mg 05/30/24 10:00 Sertraline 50 Mg Tablet PO DAILY GINNY Sodium Chloride 10 - 40 ml 05/29/24 21:00 05/30/24 08:42 0.9% Saline Lock 10 Ml Syringe IV 10 ml UD PRN Administration SALINE FLUSH PFSH Medical History (Updated 05/30/24 @ 12:[address] 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 Obesity Paroxysmal atrial fibrillation Essential (primary) hypertension Atrial fibrillation with RVR (04/13/18) Lung nodule seen on imaging study Basal cell carcinoma Home Medications ?Medication ?Instructions ?Recorded ?Last Taken ?Type aspirin 81 mg tablet,delayed 81 mg PO DAILY Heart Heal th 04/12/18 05/29/24 History release metoprolol tartrate 25 mg tablet 25 mg PO BID BLOOD OH ESSURE #180 03/22/22 05/29/24 Rx tabs donepezil 10 mg tablet 10 mg PO QHS dementia #90 ta bs 04/15/22 05/29/24 Rx sertraline 25 mg tablet (Zoloft) 25 mg PO DAILY #90 ta bs 04/15/22 05/29/24 Rx albuterol sulfate 2.5 mg/3 mL 2.5 mg (3 mL) inhalation Q2H PRN 11/21/22 Unknown Rx (0.083 %) solution for nebulization PRN SOB/Wheezing # 0 mL trimethoprim 100 mg tablet 100 mg PO QHS UTI 12/21/22 Unknown History cholecalciferol (vitamin D3) 25 25 mcg PO DAILY dietar y supplement 03/07/23 05/29/24 History mcg (1,000 unit) tablet d-mannose 500 mg capsule 1,000 mg PO BID bladder 04/2905/29/24 History acetaminophen 500 mg tablet 1,000 mg PO TID pain 08/3105/29/24 History amlodipine 5 mg tablet 5 mg PO DAILY hypertension # 90 tabs 09/01/23 05/29/24 Rx memantine 10 mg tablet 10 mg PO BID dementia 05/29/24 History multivitamin 1 tab PO DAILY dietary suppl ement 09/01/23 05/29/24 History polyethylene glycol 3350 17 17 g PO BID PRN constipati on 09/01/23 Unknown History gram/dose oral powder (Miralax) atorvastatin 20 mg tablet 20 mg PO QHS hyperlipidemia 03/11/24 05/29/24 History doxycycline hyclate 100 mg tablet 100 mg PO BID bronch itis 05/30/24 05/29/24 History Allergy/AdvReac Type Severity Reaction Status Date / Time amoxicillin Allergy Rash Verified 05/30/24 12:51 cefdinir Allergy Rash Verified 05/30/24 12:51 clavulanic acid (From Allergy Rash Verified 05/30/24 12:51 Augmentin) enoxaparin (From Lovenox) Allergy Rash Verified 05/30/24 12:51 heparin Allergy Rash Verified 05/30/24 12:51 levofloxacin (From Levaquin) Allergy Rash Verified 05/30/24 12:51 Family History Father Cancer Mother Hypertension Dementia Surgical History H/O basal cell carcinoma excision History of vein stripping Social History housing: residential Smoking Status: Never smoker alcohol intake: never substance use type: does not use Review of Systems (Anesthesia) ROS Narrative System reviewed and no additional complaints, except as documented.
--- NOTE | 2024-05-30 12:46 | PCM.PN.ORT ---
Subjective Subjective Patient seen and examined. Denies any new complaints. Family at bedside. Pain controlled. Denies fevers, chills, nausea vomiting, chest pain or shortness of breath. Objective Data Objective Data Vital Signs: Vital Signs Temp Pulse Resp BP Pulse Ox O2 Del Method O2 Flow Rate 98.3 F 89 17 100/54 L 95 Nasal Cannula 2 05/30/24 10:44 05/30/24 10:44 05/30/24 10:44 05/30/24 10:44 05/30/24 10:44 05/30/24 10:44 05/30/24 10:44 Oxygen Flow Rate (L/min) 2 Oxygen Delivery Method Nasal Cannula Weight: 171 lb 12.547 oz Body Mass Index (BMI) 27.7 Intake & Output: Intake and Output for Last 24 Hours 05/28/24 05/29/24 05/30/24 23:59 23:59 23:59 Intake Total 1160.83 / 1160.83 Output Total 550 / 550 Balance 610.83 / 610.83 Lab / Micro Data 05/30/24 05:30 05/30/24 05:30 Labs: Laboratory Results - last 24 hr 05/29/24 22:30: Urine Color Yellow, Urine Clarity Clear, Urine pH 6.0, Ur Specific [place] 1.015, Urine Protein 30 H, Urine Glucose (UA) Normal, Urine Ketones Negative, Urine Occult Blood Negative, Urine Nitrite Negative, Urine Bilirubin Negative, Urine Urobilinogen Normal, Ur Leukocyte Esterase 25 H, Urine RBC 0 SEEN, Urine WBC 0-5 SEEN, Ur Squamous Epith Cells 0-5 SEEN, Ur Renal Epithelial Cell 0-5 SEEN, Amorphous Sediment 1+, Urine Bacteria 2+, Urine Mucus 0 SEEN 05/29/24 22:45: POC Glucose 163 H 05/30/24 05:30: WBC 11.0, RBC 3.12 L, Hgb 9.8 L, Hct 29.6 L, MCV 94.9, MCH 31.4, MCHC 33.1, RDW Std Deviation 47.8 H, RDW Coeff of Dave 13.9, Plt Count 195, MPV 9.7, Immature Gran % (Auto) 0.500, Neut % (Auto) 73.6 H, Lymph % (Auto) 15.8 L, [place] % (Auto) 9.8, Eos % (Auto) 0.1, Baso % (Auto) 0.2, Absolute Neuts (auto) 8.1 H, Absolute Lymphs (auto) 1.74, Nucleated RBC % 0, PT 13.5, INR 1.0, Sodium 135, Potassium 4.6, Chloride 102, Carbon Dioxide 24.8, Anion Gap 9, BUN 35 H, Creatinine 1.21 H, Estim Creat Clear Calc 35.17 L, Est GFR (MDRD) Non-Af 44 L, BUN/Creatinine Ratio 28.6 H, Glucose 75, Hemoglobin A1c 5.1 L, Calcium 8.5, Triglycerides 133, Cholesterol 117, LDL Cholesterol, Calc 19, VLDL Cholesterol 27, HDL Cholesterol 71, Cholesterol/HDL Ratio 1.64, Vitamin D 25-Hydroxy 28.2 L, Blood Type O NEGATIVE, Antibody Screen NEGATIVE 05/30/24 06:09: POC Glucose 65 L 05/30/24 06:45: POC Glucose 126 H 05/30/24 11:23: POC Glucose 77 Radiography Diagnostic Testing: Radiology Impression Brain MRI 05/30/24 09:00 IMPRESSION: 1. No evidence of acute ischemia. 2. 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 3. Atrophy. Reading Location: [facility] Head MRA 05/30/24 09:00 IMPRESSION: 1. Normal MRA exam of the head. Reading Location: [facility] Physical Exam Narrative General -A&Ox person and place, NAD, appears stated age. Vital signs stable, afebrile. Respiratory -normal work of breathing, no intercostal retractions. CV -pulses regular, brisk capillary refill ?4 limbs. Abdomen-soft, nontender, nondistended. No guarding, rigidity, rebound tenderness. Musculoskeletal/neurologic -full range of motion nontender throughout bilateral upper extremities, right lower extremity with full sensation and strength in all dermatomes and myotomes. No midline cervical tenderness. Nontender over T1 spinous process. Left lower extremity-no obvious deformity. Pain with logroll of the left lower extremity. Nontender throughout the left knee femoral shaft, tibial shaft and left foot/ankle. Brisk capillary refill. Sensation intact light touch L3-S1 dermatomes. DF, PF, EHL intact. DP, PT 2+. Pelvis is stable, nontender. Skin is intact without lacerations, abrasions. No ecchymosis noted. Assessment & Plan Assessment/Plan (1) Fracture, intertrochanteric, left femur: QUALIFIERS: Encounter type: initial encounter Fracture type: closed Fracture alignment: displaced Qualified Code(s): S72.142A - Displaced intertrochanteric fracture of left femur, initial encounter for closed fracture PLAN: Plan to proceed with left femur cephalomedullary nailing. Informed consent confirmed with patient's POA. All questions answered to the patient's POA and patient's satisfaction. Further recommendations pending surgery.
[2024-05-30] MEDS: 0.9% Normal Saline (1000mL) 1,000 ML 15 ML IV (12:55)
[2024-05-30] MEDS: Clindamycin 600 MG/50 ML BAG 100 MG IV ×2 (13:13→21:32)
--- NOTE | 2024-05-30 13:53 | CHAPLAIN ---
Type of Pastoral Visit _x__ Initial Visit ___ Follow-up Visit ___ On-call Visit ___ General Patient Visit ___ Spiritual Assessment ___ Family Conference ___ Bereavement ___ Rapid Response ___ Code Blue ___ Other (describe below) Pastoral Care Referral From ___ Patient _x__ Family ___ Nurse ___ Physician ___ Dashboard Developer ___ Equipment Processer Storage ___ Other (describe below) Sacrament/Intervention _x__ Active listening ___ Anointing ___ Holiness ___ Bereavement ___ Communion ___ Raissa exploration ___ ___ Life review _x__ Prayer ___ Reconciliation ___ Sacrament of Sick _x__ Supportive presence ___ Wedding ___ Other (describe below) Pastoral Comments several family members are in the room as patient appears to be sleeping; family welcomes spiritual care support and say that patient will have MRI and surgery; patient wakes up and agrees to prayer and presence; pt only answers in nods or whispers but is welcoming of the support; family expresses gratitude for the spiritual care support and any future visits
--- NOTE | 2024-05-30 13:54 | CON.PCM.NE_ITS ---
Assessment and Plan: Neuro Assessment/Plan I DIDN'T SEE THE PATIENT SHE WAS IN THE OR. BASED ON CHART REVIEW - 88 y/o woman with h/o COPD, hypertension, paroxysmal atrial fibrillation not on anticoagulation, dementia p/w after found to have left intertrochanteric fracture from another ER after a witnessed fall (fell backwards). Unclear reports of questionable left facial droop and slurring of speech. As informed by primary team, left facial droop was noticed as she didn't have her denture in. Denies any shortness of breath, denies any changes in her bladder though daughter reports that she did have foul-smelling urine on Monday and she does get frequent UTIs. Additionally she had been on doxycycline for some URI symptoms and a cough. Also h/o frequent UTI. MRI brain - no acute stroke. MRA- no LVO or significant stenosis. LDL-19. Diagnosis: Concern for TIA as there is questionable left facial droop (could be due to dentures) Plan: Continue ASA if ok by orthopedics given recent surgery. Follow up TTE and A1c. OT/PT/BIOLOGICAL CHEMIST. Please call us for any questions. HPI Consult Data Date of Consult: 05/30/24 HPI Narrative HPI Narrative: ANDREAS MARROQUIN, is a 88 F who [facility] Medical History (Updated 05/30/24 @ 12:[address] 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 Obesity Paroxysmal atrial fibrillation Essential (primary) hypertension Atrial fibrillation with RVR (04/13/18) Lung nodule seen on imaging study Basal cell carcinoma Home Medications ?Medication ?Instructions ?Recorded ?Last Taken ?Type aspirin 81 mg tablet,delayed 81 mg PO DAILY Heart Heal th 04/12/18 05/29/24 History release metoprolol tartrate 25 mg tablet 25 mg PO BID BLOOD ID ESSURE #180 03/22/22 05/29/24 Rx tabs donepezil 10 mg tablet 10 mg PO QHS dementia #90 ta bs 04/15/22 05/29/24 Rx sertraline 25 mg tablet (Zoloft) 25 mg PO DAILY #90 ta bs 04/15/22 05/29/24 Rx albuterol sulfate 2.5 mg/3 mL 2.5 mg (3 mL) inhalation Q2H PRN 11/21/22 Unknown Rx (0.083 %) solution for nebulization PRN SOB/Wheezing # 0 mL trimethoprim 100 mg tablet 100 mg PO QHS UTI 12/21/22 Unknown History cholecalciferol (vitamin D3) 25 25 mcg PO DAILY dietar y supplement 03/07/23 05/29/24 History mcg (1,000 unit) tablet d-mannose 500 mg capsule 1,000 mg PO BID bladder 04/2905/29/24 History acetaminophen 500 mg tablet 1,000 mg PO TID pain 08/3105/29/24 History amlodipine 5 mg tablet 5 mg PO DAILY hypertension # 90 tabs 09/01/23 05/29/24 Rx memantine 10 mg tablet 10 mg PO BID dementia 05/29/24 History multivitamin 1 tab PO DAILY dietary suppl ement 09/01/23 05/29/24 History polyethylene glycol 3350 17 17 g PO BID PRN constipati on 09/01/23 Unknown History gram/dose oral powder (Miralax) atorvastatin 20 mg tablet 20 mg PO QHS hyperlipidemia 03/11/24 05/29/24 History doxycycline hyclate 100 mg tablet 100 mg PO BID bronch itis 05/30/24 05/29/24 History Allergy/AdvReac Type Severity Reaction Status Date / Time amoxicillin Allergy Rash Verified 05/30/24 12:51 cefdinir Allergy Rash Verified 05/30/24 12:51 clavulanic acid (From Allergy Rash Verified 05/30/24 12:51 Augmentin) enoxaparin (From Lovenox) Allergy Rash Verified 05/30/24 12:51 heparin Allergy Rash Verified 05/30/24 12:51 levofloxacin (From Levaquin) Allergy Rash Verified 05/30/24 12:51 Family History Father Cancer Mother Hypertension Dementia Surgical History H/O basal cell carcinoma excision History of vein stripping Social History housing: [facility] Smoking Status: Never smoker alcohol intake: never substance use type: does not use Vital Signs Vital Signs Vital Signs: 05/29/24 19:30 05/29/24 20:24 05/29/24 22:00 Temperature 97.6 F L Temperature Source Oral Pulse Rate 58 L Pulse Strength Normal (2+) Respiratory Rate 18 Respiratory Effort Respiratory Depth Respiratory Pattern Blood Pressure 121/56 H Blood Pressure Mean 77 Blood Pressure Source Monitor Blood Pressure Position Semi-Fowlers Blood Pressure Location Left Arm Pulse Ox 100 95 Oxygen Delivery Method Nasal Cannula Nasal Cannula Oxygen Flow Rate (L/min) 3 3 05/29/24 22:00 05/29/24 22:45 05/29/24 23:04 Temperature 97.0 F L Temperature Source Temporal Pulse Rate 61 71 Pulse Strength Respiratory Rate 18 Respiratory Effort Normal Non-Labored Respiratory Depth Normal Respiratory Pattern Normal Blood Pressure 123/55 H 123/55 H Blood Pressure Mean 77 Blood Pressure Source Monitor Blood Pressure Position Supine Blood Pressure Location Left Arm Pulse Ox 95 Oxygen Delivery Method Nasal Cannula Nasal Cannula Oxygen Flow Rate (L/min) 3 2 05/30/24 02:00 05/30/24 04:00 05/30/24 06:00 Temperature 98.2 F 98.3 F Temperature Source Temporal Temporal Pulse Rate 60 74 Pulse Strength Respiratory Rate 16 18 Respiratory Effort Normal Non-Labored Respiratory Depth Normal Respiratory Pattern Normal Blood Pressure 104/50 L 111/52 L Blood Pressure Mean 68 71 Blood Pressure Source Manual Monitor Blood Pressure Position Supine Semi-Fowlers Blood Pressure Location Left Arm Left Arm Pulse Ox 98 94 Oxygen Delivery Method Nasal Cannula Nasal Cannula Nasal Cannula Oxygen Flow Rate (L/min) 3 2 2 05/30/24 06:00 05/30/24 07:26 05/30/24 08:51 Temperature 98.3 F Temperature Source Temporal Pulse Rate 74 Pulse Strength Normal (2+) Respiratory Rate 18 Respiratory Effort Respiratory Depth Respiratory Pattern Blood Pressure 111/52 L Blood Pressure Mean 71 Blood Pressure Source Monitor Blood Pressure Position Semi-Fowlers Blood Pressure Location Left Arm Pulse Ox 94 96 Oxygen Delivery Method Nasal Cannula Nasal Cannula Oxygen Flow Rate (L/min) 2 3 05/30/24 10:44 05/30/24 10:44 05/30/24 10:44 Temperature 98.3 F 98.3 F Temperature Source Oral Oral Pulse Rate 89 89 Pulse Strength Respiratory Rate 17 17 Respiratory Effort Respiratory Depth Respiratory Pattern Blood Pressure 100/54 L 100/54 L Blood Pressure Mean 69 69 Blood Pressure Source Monitor Blood Pressure Position Semi-Fowlers Blood Pressure Location Right Arm Pulse Ox 95 95 Oxygen Delivery Method Nasal Cannula Nasal Cannula Nasal Cannula Oxygen Flow Rate (L/min) 2 2 2 05/30/24 13:02 Temperature 98.3 F Temperature Source Pulse Rate 89 Pulse Strength Respiratory Rate 17 Respiratory Effort Respiratory Depth Respiratory Pattern Blood Pressure 100/54 L Blood Pressure Mean Blood Pressure Source Blood Pressure Position Blood Pressure Location Pulse Ox 95 Oxygen Delivery Method Nasal Cannula Oxygen Flow Rate (L/min) 2 Weight Weight: 77.92 kg Body Mass Index (BMI) 27.7 EEG Results Procedure Details EEG Procedure Details: ANDREAS MARROQUIN is a 88 year old F with a past medical history of , who presents for evaluation of Electroencephalogram on DATE at TIME NIHSS NIHSS Nursing Documentation NIHSS Nursing Documentation: NIHSS: Ischemic Stroke/TIA Start: 05/29/24 20:12 Text: For PCU Patients: NIH and Neuro Check every 4 Status: Complete hours, PRN and with change in RN caregiver. Freq: [id number] Protocol: Activity Type Activity Date Activity User E-sign Co-sign Detail Recorded Client Recorded Date Recorded By Document 05/30/24 07:42 [id number] 05/30/24 07:47 05/30/24 07:42 NIH Stroke Scale [NIHSS] A score of 0 is normal or asymptomatic . Total possible score is 42. Inpatient: RN or Physician to activate a stroke alert for onset of new stroke symptoms or with NIHSS increase >/= 3 points. Following change in neurological status, NIHSS will be performed per physician order or more frequently PRN. -1a. Level of Consciousness Alert; keenly responsive -1b. LOC Questions Answers neither question correctly. -1c. LOC Commands Performs both tasks correctly . -2. Best Gaze Normal -3. Visual No visual loss -4. Facial Palsy Minor paralysis (flattened nasolabial fold , asymmetry on smiling) -5a. Left Arm No drift; arm holds 90 (or 45 ) degrees for full 10 seconds -5b. Right Arm No drift; arm holds 90 (or 45 ) degrees for full 10 seconds -6a. Left Leg No effort against gravity ; leg falls to bed immediately -6b. Right Leg Some effort against gravity ; -7. Limb Ataxia Absent -8. Sensory Normal; no sensory loss -9. Best Language Mild-to- moderate aphasia; -10. Dysarthria Mild-to- moderate dysarthria; -11. Extinction and Inattention No abnormality -Total 10 Query Text:A score of 0 is normal or asymptomatic. Total possible score is 42 . ED: Notify Physician for NIHSS increase by > / = 3 points. Inpatient: RN or Physician to activate a stroke alert for NIHSS increase of > / = 3 points. Coma Scale [Assess] -Eye Opening Spontaneous -Motor Obeys Commands -Verbal Confused [Total] -Coma Scale Total 14 Lab / Micro Data 05/30/24 05:30 05/30/24 05:30 Labs: Laboratory Results - last 24 hr 05/29/24 22:30: Urine Color Yellow, Urine Clarity Clear, Urine pH 6.0, Ur Specific [place] 1.015, Urine Protein 30 H, Urine Glucose (UA) Normal, Urine Ketones Negative, Urine Occult Blood Negative, Urine Nitrite Negative, Urine Bilirubin Negative, Urine Urobilinogen Normal, Ur Leukocyte Esterase 25 H, Urine RBC 0 SEEN, Urine WBC 0-5 SEEN, Ur Squamous Epith Cells 0-5 SEEN, Ur Renal Epithelial Cell 0-5 SEEN, Amorphous Sediment 1+, Urine Bacteria 2+, Urine Mucus 0 SEEN 05/29/24 22:45: POC Glucose 163 H 05/30/24 05:30: WBC 11.0, RBC 3.12 L, Hgb 9.8 L, Hct 29.6 L, MCV 94.9, MCH 31.4, MCHC 33.1, RDW Std Deviation 47.8 H, RDW Coeff of Dave 13.9, Plt Count 195, MPV 9.7, Immature Gran % (Auto) 0.500, Neut % (Auto) 73.6 H, Lymph % (Auto) 15.8 L, [place] % (Auto) 9.8, Eos % (Auto) 0.1, Baso % (Auto) 0.2, Absolute Neuts (auto) 8.1 H, Absolute Lymphs (auto) 1.74, Nucleated RBC % 0, PT 13.5, INR 1.0, Sodium 135, Potassium 4.6, Chloride 102, Carbon Dioxide 24.8, Anion Gap 9, BUN 35 H, C reatinine 1.21 H, Estim Creat Clear Calc 35.17 L, Est GFR (MDRD) Non-Af 44 L, B UN/Creatinine Ratio 28.6 H, Glucose 75, Hemoglobin A1c 5.1 L, Calcium 8.5, Triglycerides 133, Cholesterol 117, LDL Cholesterol, Calc 19, VLDL Cholesterol 27, HDL Cholesterol 71, Cholesterol/HDL Ratio 1.64, Vitamin D 25-Hydroxy 28.2 L, Blood Type O NEGATIVE, Antibody Screen NEGATIVE 05/30/24 06:09: POC Glucose 65 L 05/30/24 06:45: POC Glucose 126 H 05/30/24 11:23: POC Glucose 77 Imaging Radiology Impression Echocardiogram 05/29/24 20:13 Interpretation Summary Normal LV size. Left ventricular systolic function is normal. The left ventricular ejection fraction is 65 %. Stage 1 diastolic dysfunction. Pulmonary artery systolic pressure is 38 mmHg. Ordering Physician: Saima Richardson Referring Physician: Levon White Performed By: Saige Taylor RDCS Brain MRI 05/30/24 09:00 IMPRESSION: 1. No evidence of acute ischemia. 2. 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 3. Atrophy. Reading Location: [facility] Head MRA 05/30/24 09:00 IMPRESSION: 1. Normal MRA exam of the head. Reading Location: [facility] Active Medications Active Medications Active Medications: Current Medications Generic Name Dose Route Start Last Admin Trade Name Freq PRN Reason Stop Dose Admin Acetaminophen 1,000 mg 05/29/24 22:00 05/30/24 13:39 Acetaminophen 500 Mg Tablet PO Not Given Q8 GINNY Albuterol Sulfate 2.5 mg 05/29/24 20:05 Albuterol 2.5 Mg/3 Ml Vial.Neb. INHALATION Q2H PRN PRN SOB &/OR WHEEZING Aspirin 81 mg 05/30/24 08:00 Aspirin 81 Mg Tab.Chew PO BREAKFAST GINNY Atorvastatin Calcium 40 mg 05/29/24 22:00 05/29/24 23:03 Atorvastatin Calcium 40 Mg Tablet PO 40 mg QHS GINNY Administration Glucagon 1 mg 05/29/24 20:05 Glucagon 1 Mg/Ml Syringe IM X1 PRN HYPOGLYCEMIA Protocol Hydralazine HCl 5 mg 05/29/24 20:10 Hydralazine 20 Mg/Ml Vial IV 05/30/24 20:12 Q30M PRN maintain BP parameters with HR <60 Dextrose 250 mls @ 0 mls/hr 05/29/24 20:05 05/30/24 06:28 Dextrose 10%-Water IV Infused .Q0M PRN Infusion HYPOGLYCEMIA Protocol As Directed Sodium Chloride 100 mls @ 15 mls/hr 05/29/24 21:00 IV .Q6H40M PRN Saline Flush Sodium Chloride 100 mls @ 15 mls/hr 05/29/24 21:00 IV .Q6H40M PRN Additional IVPB Infusion Ceftriaxone Sodium 1 gm in 50 mls @ 100 mls/hr 05/30/24 10:00 05/30/24 12:07 Rocephin IV Infused Q24 GINNY Infusion Sodium Chloride 1,000 mls @ 15 mls/hr 05/30/24 12:55 05/30/24 12:55 IV 15 mls/hr .Q48H GINNY Administration Labetalol HCl 10 - 20 mg 05/29/24 20:10 Labetalol 20mg/4ml Syringe IV 05/30/24 20:12 Q10M PRN PRN maintain BP parameters with HR >/=60 Lorazepam 0.5 mg 05/29/24 21:30 Lorazepam 0.5 Mg Tablet PO X1 PRN Anxiety with MRI Melatonin 3 mg 05/29/24 20:05 Melatonin 3 Mg Tablet PO QHS PRN PRN INSOMNIA Memantine 10 mg 05/29/24 22:00 05/30/24 13:42 Memantine Hydrochloride 10 Mg Tablet PO Not Given BID [facility] Metoprolol Tartrate 12.5 mg 05/29/24 22:00 05/30/24 10:00 Metoprolol Tartrate 25 Mg Tablet PO Not Given BID [facility] Protocol Morphine Sulfate 2 - 4 mg 05/29/24 20:05 Morphine 2 Mg/Ml Syringe IV Q3H PRN PRN Pain Score 6-10 Ondansetron HCl 4 mg 05/29/24 20:05 Ondansetron 4 Mg/2 Ml Vial IV Q8H PRN PRN NAUSEA/VOMITING Oxycodone HCl 2.5 - 5 mg 05/29/24 22:30 Oxycodone 5 Mg Tablet PO Q4H PRN PRN MODSEVPAIN Senna/Docusate Sodium 2 tablet 05/29/24 20:05 Senna/Docusate Sodium 1 Tablet PO BID PRN PRN Constipation Sertraline HCl 25 mg 05/30/24 10:00 Sertraline 50 Mg Tablet PO DAILY [facility] Sodium Chloride 10 - 40 ml 05/29/24 21:00 05/30/24 08:42 0.9% Saline Lock 10 Ml Syringe IV 10 ml UD PRN Administration SALINE FLUSH
[2024-05-30] MEDS: Bupiv/Epi 0.25% 30 ML Vial (14:38)
--- NOTE | 2024-05-30 14:59 | PCM.POST.ANE ---
Anesthesia: Postop Eval I Current Vital Signs Temperature: 98.3 F Pulse Rate: 104 Blood Pressure: 131/52 Respiratory Rate: 16 Pulse Ox: 93 Oxygen Delivery Method: Nasal Cannula Oxygen Flow Rate (L/min): 3 Assessment Airway patent: Yes Spontaneous unlabored respirations: Yes Mental status: Awake nausea: No Vomiting: No Anesthesia Complication: No Fluid Hydration Crystalloid volume administer (ml): 1,000 Total IV fluid infused: 1,000 Progress Note Anesthesia document: Postop Eval 1 completed: Yes
--- NOTE | 2024-05-30 15:13 | PCM.OPRPT ---
Operative Report (Standard) Operative Information Date of Procedure: 05/30/24 Pre-Operative Diagnosis: Left intertrochanteric proximal femur fracture Post-Operative Diagnosis: Left intertrochanteric proximal femur fracture Surgery/Procedure Performed: Treatment of left intertrochanteric proximal femur fracture with cephalomedullary nail lining feller blindstitch: No Type of Anesthesia: General RN Documented Start/Stop Times: Operation Date: 05/30/24 11:30 Case Time Into Pre-Op 05/30/24 12:37 Out of Pre-Op 05/30/24 13:06 Anesthesia Start 05/30/24 13:07 Into Room 05/30/24 13:07 Procedure Start 05/30/24 13:35 Procedure End 05/30/24 14:39 Anesthesia End 05/30/24 14:47 Out of Room 05/30/24 14:47 Into Recovery 05/30/24 14:51 Procedure Start Time: 13:35 Procedure Stop Time: 14:39 Select all DRAINS/GRAFTS/IMPLANTS that apply: Implanted device Implanted device details: Flower Gamma3 Cephalomedullary Nail 125 degree 11 mm x 180 mm left, 10.5 mm x 95 mm lag screw, Interlocking screw size 5 mm x 35 mm Estimated Blood Loss: 200 cc Specimen collected: No Description of surgery: Patient was seen in preoperative holding area. She was identified by name, medical record number, date of . The operative extremity was marked with a surgical marker. We confirmed informed consent with the patient and questions were answered to her satisfaction. Patient was brought to the operative suite, and general anesthesia was induced on her hospital bed. Endotracheal tube was secured. After adequate anesthesia, patient was transferred to a fracture table with all bony prominences being well-padded. A perineal post was placed to secure the patient on the table. We then applied a ski boot which was well-padded to the operative extremity. The well leg was dropped into extension and secured to the axial post of the fracture table with a pillow and Coban. The left arm was brought across patient's chest with a blanket on her chest. We then performed a closed reduction maneuver with external rotation, traction, internal rotation and adduction. Fluoroscopic images were obtained. Fracture appeared to be acceptably reduced following closed reduction. We then prepped and draped the left lower extremity in normal, sterile orthopedic fashion. A timeout was performed with all parties in attendance in agreement with the side, site, and operation be performed. 600 mg Cleocin was administered prior to incision. No concerns were voiced and we elected to proceed. I first used fluoroscopy to mary the level of the fracture and planned incision for insertion of the cephalomedullary nail device. In line with the long axis of the femur, 4 fingerbreadths proximal to the tip of the greater trochanter, a full-thickness skin incision was planned.. Skin was sharply incised with 10 blade scalpel, carried into the subcutaneous tissues. The IT band was encountered and split and planned trajectory of the nail placement. The greater trochanter was then able to be palpated digitally. I then placed a threaded guidewire just medial to the tip of the greater trochanter and in the anterior third of it on the lateral. Opening reamer was then placed over top of the guidewire after placement was confirmed on C arm. A ball-tipped guidewire then was passed into the intramedullary canal after reamer was removed. We used C arm to confirm our placement within the bone. We then sequentially reamed to a final diameter of 12.5 mm using flexible reamers. Reduction was again confirmed. We selected her nail to be 18 cm x 11 mm diameter. Reamers were removed. Nail was assembled on the back table. We placed it over the ball-tipped guidewire and impacted to an appropriate depth. Rotation was confirmed on the lateral. Drill sleeve was placed through the targeting guide. We drilled the pin for the lag screw at an appropriate position and depth, tip to apex distance less than 25 mm on AP and lateral combined. Depth gauge was used to measure the length of the screw, 95 mm. Prior to drilling, I applied a lateral translation of the femoral neck with a bone hook placed to the lag screw incision. We then used the cannulated drill to drill to an appropriate depth. Drill was removed, drill pin left in place. Lag screw was placed over top of the drill pin and tightened to an appropriate depth. Setscrew was then placed and tightened, and then turned back a quarter turn to allow the lag screw to slide. I then drilled for a static interlocking screw in the distal portion of the screw utilizing the outrigger. Skin was incised full-thickness down the level of the IT band which was also split in line with the skin incision. I drilled bicortically through the distal interlocking slot of the nail. I measured for a 35 mm interlocking screw which was placed by hand with excellent purchase. Instruments were removed as well as the outrigger for the nail. Final fluoroscopic images were obtained at the hip. Final fluoroscopic images were obtained. We irrigated the wounds copiously with normal saline solution. Hemostasis was excellent at this point. We then closed the deeper layers, IT band with 0 Vicryl. Intradermal buried stitches of 2-0 Vicryl were utilized and skin finally reapproximated with skin murali. Sterile compression dressing of Xeroform, 4 x 4's, and Tegaderm was applied. Patient tolerated procedure well without complication. She was transferred back to her hospital bed and subsequently to PACU in stable condition. Intraoperative medications: 600 mg IV Cleocin, 20 cc total quarter percent bupivacaine with epinephrine Post Operative Plan: Weightbearing: Weightbearing as tolerated left lower extremity with a walker Antibiotics: 24 hours postoperative Cleocin , 1 dose given preoperatively DVT Prophylaxis: Eliquis to start tomorrow morning x 28 days Perez: None Dressing: Dry sterile dressing changes daily and as needed for saturation X-Rays: 2 weeks postop in the office Follow-up: 2 weeks post-operatively with me in the office Surgical Findings: Comminuted left intertrochanteric proximal femur fracture. Stable following final fixation Complications Complications: No Admit VTE Documentation VTE Present on Admission: No VTE Mechan Device Prophylaxis: SCD's and Knee High CORI Hose VTE Pharm Prophylaxis ordered?: Yes
[2024-05-30 17:06] LABS: Bedside Glucose 100 mg/dL (74-106)
[2024-05-30] MEDS: Aspirin 81 MG TAB.CHEW PO (17:29)
[2024-05-30] MEDS: Calcium Carbonate 500 MG Tablet PO (17:29)
[2024-05-30] MEDS: 0.9% Normal Saline (500mL Bag) 500 ML 999 ML IV (19:02)
[2024-05-30] MEDS: Atorvastatin Calcium 20 MG Tablet PO (21:33)
[2024-05-30] MEDS: Acetaminophen 500 MG Tablet 1000 MG PO (21:33)
[2024-05-30] MEDS: Metoprolol Tartrate 25 MG Tablet 12.5 MG PO (21:34)
[2024-05-30] MEDS: Memantine Hydrochloride 10 MG Tablet PO (21:34)
[2024-05-30] MEDS: Donepezil HCl 10 MG Tablet PO (21:34)
--- NOTE | 2024-05-30 22:50 | POSTOPAN2_ITS ---
Anesthesia Postop Eval I Sum Postop Eval Completion status Anesthesia document: Postop Eval 1 completed: Yes Anesthesia Postop Eval I Summary Anesthesia Postop Eval I Summary: Anesthesia Postop Eval I: Assessment Summary Airway patent Yes 05/30/24 15:00 VEIN [email or web address] Spontaneous unlabored Yes 05/30/24 15:00 VEIN [email or web address].SOBR respirations Mental status Awake 05/30/24 15:00 VEIN [email or web address].SOBR nausea No 05/30/24 15:00 VEIN [email or web address].SOBR Vomiting No 05/30/24 15:00 VEIN [email or web address].SOBR Anesthesia Postop Eval I: Fluid Summary Crystalloid volume administer 1,000 05/30/24 15:00 VEIN [email or web address].SOBR (ml) Colloids volume administered ( ml) Blood Product volume administered (ml) Total IV fluid infused 1,000 05/30/24 15:00 VEIN [email or web address].SOBR Anesthesia Postop Eval I: Summary Notes Anesthesia Complication No 05/30/24 15:00 VEIN [email or web address].SOBR Anesthesia Complication Comment: Post-operative progress note Anesthesia: Postop Eval II Evaluation Mental status: Awake and Calm Pain Level: 2 nausea: No Vomiting: No Complications Anesthesia Complication: No
--- NOTE | 2024-05-30 22:50 | PCM.POSTANE2 ---
Anesthesia Postop Eval I Sum Postop Eval Completion status Anesthesia document: Postop Eval 1 completed: Yes Anesthesia Postop Eval I Summary Anesthesia Postop Eval I Summary: Anesthesia Postop Eval I: Assessment Summary Airway patent Yes 05/30/24 15:00 AUTOMOTIVE PAINTER HELPER.SOBR Spontaneous unlabored Yes 05/30/24 15:00 AUTOMOTIVE PAINTER HELPER.SOBR respirations Mental status Awake 05/30/24 15:00 AUTOMOTIVE PAINTER HELPER.SOBR nausea No 05/30/24 15:00 AUTOMOTIVE PAINTER HELPER.SOBR Vomiting No 05/30/24 15:00 AUTOMOTIVE PAINTER HELPER.SOBR Anesthesia Postop Eval I: Fluid Summary Crystalloid volume administer 1,000 05/30/24 15:00 AUTOMOTIVE PAINTER HELPER.SOBR (ml) Colloids volume administered ( ml) Blood Product volume administered (ml) Total IV fluid infused 1,000 05/30/24 15:00 AUTOMOTIVE PAINTER HELPER.SOBR Anesthesia Postop Eval I: Summary Notes Anesthesia Complication No 05/30/24 15:00 AUTOMOTIVE PAINTER HELPER.SOBR Anesthesia Complication Comment: Post-operative progress note Anesthesia: Postop Eval II Evaluation Mental status: Awake and Calm Pain Level: 2 nausea: No Vomiting: No Complications Anesthesia Complication: No
[2024-05-30 23:00] LABS: Bedside Glucose 127 mg/dL (74-106)
[2024-05-31 01:09] VITALS: BMI 27.7
[2024-05-31 02:05] VITALS: BP 102/56; PULSE 90; RESP 18; TEMP 37; O2SAT 93
[2024-05-31] MEDS: Clindamycin 600 MG/50 ML BAG 100 MG IV ×2 (05:00→13:43)
[2024-05-31] MEDS: 0.9% Saline Lock 10 ML Syringe IV ×2 (05:01→13:43)
[2024-05-31] MEDS: Acetaminophen 500 MG Tablet 1000 MG PO ×2 (05:06→21:47)
[2024-05-31 06:54] LABS: Absolute Lymphocyte Count 1.65 X10^3/uL (0.83-4.51); Absolute Neutrophil Count 8.7 X10^3/uL (2.0-7.7); Basophil# 0.03 X10^3/uL; Basophil% 0.3 % (0-1); Eosinophil# 0.02 X10^3/uL; Eosinophils% 0.2 % (0-5); Hematocrit 24.2 % (37-47); Hemoglobin 7.9 g/dL (12.0-15.0); Lymphocyte # 1.65 X10^3/ul (0.83-4.51); Lymphocyte % 13.9 % (19-41); Mean Corp Hgb Conc 32.6 g/dL (32-36); Mean Corpuscular Hgb 31.6 pg (27.0-32.0); Mean Corpuscular Volume 96.8 fL (81-99); Mean Platelet Vol. 10.3 fl (6.2-12.0); Monocyte# 1.44 X10^3/uL; Monocyte% 12.1 % (0-10); NRBC Flagged by Analyzer 0 % (0-5); Neutrophil % 72.9 % (47-70); Platelet Count 170 K/mm3 (150-450); RBC Distribution Width CV 14.2 % (11.6-14.6); RBC Distribution Width SD 50.5 fl (35.1-43.9); White Blood Count 11.9 K/mm3 (4.4-11.0)
[2024-05-31 06:59] LABS: Bedside Glucose 96 mg/dL (74-106)
--- NOTE | 2024-05-31 07:09 | PCM.PN.HOSP ---
Reason for Visit Reason for Visit: Diagnoses Slurred speech (05/29/24) Other specified fracture of unspecified pubis, initial encounter for closed fracture (05/29/24) Displaced intertrochanteric fracture of left femur, initial encounter for closed fracture (05/29/24) Subjective Subjective No acute issues. Objective Data Objective Data Vital Signs: Vital Signs Temp Pulse Resp BP Pulse Ox O2 Del Method O2 Flow Rate 37.0 C 90 18 102/56 L 93 Nasal Cannula 3 05/31/24 02:05 05/31/24 02:05 05/31/24 02:05 05/31/24 02:05 05/31/24 02:05 05/31/24 02:35 05/31/24 02:35 Oxygen Flow Rate (L/min) 3 Oxygen Delivery Method Nasal Cannula Weight: 77.92 kg Body Mass Index (BMI) 27.7 Intake & Output: Intake and Output for Last 24 Hours 05/29/24 05/30/24 05/31/24 23:59 23:59 23:59 Intake Total 2901.83 / 3021.83 230 / 230 Output Total 850 / 850 150 / 150 Balance 2051.83 / 2171.83 80 / 80 Lab / Micro Data 05/31/24 06:32 05/31/24 06:32 Labs: Laboratory Results - last 24 hr 05/30/24 05:30: Triglycerides 133, Cholesterol 117, LDL Cholesterol, Calc 19, VLDL Cholesterol 27, HDL Cholesterol 71, Cholesterol/HDL Ratio 1.64, Vitamin D 25-Hydroxy 28.2 L, Blood Type O NEGATIVE, Antibody Screen NEGATIVE 05/30/24 11:23: POC Glucose 77 05/30/24 16:49: POC Glucose 100 05/30/24 22:42: POC Glucose 127 H 05/31/24 06:32: WBC 11.9 H, RBC 2.50 L, Hgb 7.9 L, Hct 24.2 L, MCV 96.8, MCH 31.6, MCHC 32.6, RDW Std Deviation 50.5 H, RDW Coeff of Dave 14.2, Plt Count 170, MPV 10.3, Immature Gran % (Auto) 0.600, Neut % (Auto) 72.9 H, Lymph % (Auto) 13.9 L, [place] % (Auto) 12.1 H, Eos % (Auto) 0.2, Baso % (Auto) 0.3, Absolute Neuts (auto) 8.7 H, Absolute Lymphs (auto) 1.65, Nucleated RBC % 0 05/31/24 06:41: POC Glucose 96 Radiography Diagnostic Testing: Radiology Impression Carotid Duplex 05/29/24 20:10 Interpretation Summary Mild (<50%) stenosis right extracranial internal carotid. Mild (<50%) stenosis left extracranial internal carotid. Patent and antegrade vertebrals bilaterally. Ordering Physician: Saima Richardson Referring Physician: Levon White Performed By: Coco Mason, RVT Echocardiogram 05/29/24 20:13 Interpretation Summary Normal LV size. Left ventricular systolic function is normal. The left ventricular ejection fraction is 65 %. Stage 1 diastolic dysfunction. Pulmonary artery systolic pressure is 38 mmHg. Ordering Physician: Saima Richardson Referring Physician: Levon White Performed By: Saige Taylor, [facility] Hip/Pelvis X-Ray 05/30/24 06:57 IMPRESSION: Status post left hip ORIF. Follow-up until healing. Reading Location: [id number] Brain MRI 05/30/24 09:00 IMPRESSION: 1. No evidence of acute ischemia. 2. 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 3. Atrophy. Reading Location: [facility] Head MRA 05/30/24 09:00 IMPRESSION: 1. Normal MRA exam of the head. Reading Location: [facility] Physical Exam Const Constitutional Narrative: awake. listless. afebrile. HEENT HEENT Narrative: MM dry. Cardio regular rate, regular rhythm, S1 normal heart sound and S2 normal heart sound GI normal to inspection, nondistended, normoactive bowel sounds, soft to palpation, non-tender and non-distended Neuro Sensorium / Orientation: awake and alert Assessment & Plan Assessment/Plan (1) Fracture, intertrochanteric, left femur: QUALIFIERS: Encounter type: initial encounter Fracture alignment: displaced Fracture type: closed Qualified Code(s): S72.142A - Displaced intertrochanteric fracture of left femur, initial encounter for closed fracture PLAN: s/p fall. Patient underwent a left cephalomedullary nail on 05/30 25 [place] d level 28.2. Start ergocalciferol 50k units weekly for 8 weeks. Ortho recs: DVT Prophylaxis: Eliquis to start tomorrow morning x 28 days, Perez: None, Dressing: Dry sterile dressing changes daily and as needed for saturation, X-Rays: 2 weeks postop in the office, Follow-up: 2 weeks post-operatively with me in the office (2) Pubic ramus fracture: PLAN: Non-surgical. (3) Slurred speech: PLAN: Family was most concerned because they noted a left facial droop. MRI brain negative. On my evaluation, patient does have some facial asymmetry with being more notable on the left. I suspect the patient's family had seen that when the patient's dentures were not in and noticed how prominent it was. I do not feel any additional stroke workup is necessary. Patient will not require any further neurologic workup at this time. Today, pt is listless. Appears dehydrated. Will give IVF. PLAN: Plan Chronic conditions: HTN: amlodipine on hold Dementia: donepezil Depression: sertraline VTE prophylaxis: apixaban Charges/Coding Visit Charges Inpatient E&M: 97508 Subs Hosp L2
[2024-05-31 07:49] LABS: Anion Gap 9 (5-15); BUN 38 mg/dL (4-19); BUN/Creat Ratio 26.7 RATIO (10-20); Calcium,Total 8.1 mg/dL (7.6-11.0); Chloride 104 mmol/L (98-108); Creatinine, Serum 1.42 mg/dL (0.70-1.20); EST Glomerular Filtration Rate 36 (>60); Estimated Creatinine Clearance 29.97 ml/min (50-250); Glucose 106 mg/dL (70-99); Potassium 4.6 mmol/L (3.3-5.1); Sodium Level 136 mmol/L (133-145)
[2024-05-31 08:05] VITALS: BP 98/50; PULSE 84; RESP 17; TEMP 37.1; O2SAT 93
[2024-05-31] MEDS: Sertraline 50 MG Tablet 25 MG PO (10:01)
[2024-05-31] MEDS: Memantine Hydrochloride 10 MG Tablet PO ×2 (10:01→21:47)
[2024-05-31] MEDS: Multivitamins,Therapeutic Tablet 1 TABLET PO (10:01)
[2024-05-31] MEDS: Calcium Carbonate 500 MG Tablet PO (10:01)
[2024-05-31] MEDS: Ergocalciferol 1.25 MG (50, 000 UNIT) Capsule PO (10:01)
[2024-05-31] MEDS: APIXABAN 2.5 MG TABLET (WCH) PO ×2 (10:01→21:46)
[2024-05-31] MEDS: Aspirin 81 MG TAB.CHEW PO (10:04)
--- NOTE | 2024-05-31 11:09 | CASEMGMT ---
SW did not complete a PHQ 9 as patient did not have a Stroke or TIA. Essence DENTON
[2024-05-31 12:10] LABS: Bedside Glucose 147 mg/dL (74-106)
[2024-05-31] MEDS: 0.9% Normal Saline (1000mL) 1,000 ML 150 ML IV (12:13)
--- NOTE | 2024-05-31 12:57 | PN.ORTHO_ITS ---
Subjective Subjective Patient seen and examined. Denies any pain. Complete review of systems limited by patient's mental status. Nursing at bedside, stated patient was up with therapy to chair. Objective Data Objective Data Vital Signs: Vital Signs Temp Pulse Resp BP Pulse Ox O2 Del Method O2 Flow Rate 98.8 F 84 17 98/50 L 93 Room Air 3 05/31/24 08:05 05/31/24 08:05 05/31/24 08:05 05/31/24 08:05 05/31/24 08:05 05/31/24 08:15 05/31/24 02:35 Oxygen Flow Rate (L/min) 3 Oxygen Delivery Method Room Air Weight: 171 lb 12.547 oz Body Mass Index (BMI) 27.7 Intake & Output: Intake and Output for Last 24 Hours 05/29/24 05/30/24 05/31/24 23:59 23:59 23:59 Intake Total 2901.83 / 3021.83 272.5 / 272.5 Output Total 850 / 850 150 / 150 Balance 2051.83 / 2171.83 122.5 / 122.5 Lab / Micro Data 05/31/24 06:32 05/31/24 06:32 Labs: Laboratory Results - last 24 hr 05/30/24 16:49: POC Glucose 100 05/30/24 22:42: POC Glucose 127 H 05/31/24 06:32: WBC 11.9 H, RBC 2.50 L, Hgb 7.9 L, Hct 24.2 L, MCV 96.8, MCH 31.6, MCHC 32.6, RDW Std Deviation 50.5 H, RDW Coeff of Dave 14.2, Plt Count 170, MPV 10.3, Immature Gran % (Auto) 0.600, Neut % (Auto) 72.9 H, Lymph % (Auto) 13.9 L, [place] % (Auto) 12.1 H, Eos % (Auto) 0.2, Baso % (Auto) 0.3, Absolute Neuts (auto) 8.7 H, Absolute Lymphs (auto) 1.65, Nucleated RBC % 0, Sodium 136, Potassium 4.6, Chloride 104, Carbon Dioxide 23.0, Anion Gap 9, BUN 38 H, C reatinine 1.42 H, Estim Creat Clear Calc 29.97 L, Est GFR (MDRD) Non-Af 36 L, B UN/Creatinine Ratio 26.7 H, Glucose 106 H, Calcium 8.1 05/31/24 06:41: POC Glucose 96 05/31/24 11:43: POC Glucose 147 H Radiography Diagnostic Testing: Radiology Impression Carotid Duplex 05/29/24 20:10 Interpretation Summary Mild (<50%) stenosis right extracranial internal carotid. Mild (<50%) stenosis left extracranial internal carotid. Patent and antegrade vertebrals bilaterally. Ordering Physician: Saima Richardson Referring Physician: Levon White Performed By: Coco Mason, RVT Hip/Pelvis X-Ray 05/30/24 06:57 IMPRESSION: Status post left hip ORIF. Follow-up until healing. Reading Location: [facility] Physical Exam Narrative General - A&Ox3, NAD. VSS/AF Left lower extremity -incisional dressing C/D/I. SILT Sural, Saphenous, SPN, DPN, Tibial N. distributions. DP, PT 2+. BCR. DF, PF, EHL 5/5. No calf TTP. Assessment & Plan Assessment/Plan (1) Fracture, intertrochanteric, left femur: QUALIFIERS: Encounter type: initial encounter Fracture type: c losed Fracture alignment: displaced Qualified Code(s): S72.142A - Displaced intertrochanteric fracture of left femur, initial encounter for closed fracture PLAN: POD# 1 s/p left femur CMN -Acute blood loss anemia noted. Hemoglobin down to 7.9 today from 9.8 yesterday. Suspect multifactorial from acute intraoperative blood loss as well as dilution component, unappreciated blood loss from fracture. Hemodynamically stable. No indication for transfusion from my standpoint. Recommend repeating CBC tomorrow. - Mental status appears near baseline. Judicious use of narcotics. Encourage family at bedside to be present as much as possible to lower risk of postoperative delirium. - Pain control - Medicine following for medical management - PT/OT -weightbearing as tolerated left lower extremity - DVT PPX -Eliquis 2.5 mg p.o. twice daily, CORI Meek, early mobilization - Case management - D/C planning
[2024-05-31 14:19] VITALS: BP 107/49; PULSE 107; RESP 18; TEMP 36.4; O2SAT 92
[2024-05-31 14:31] VITALS: BMI 27.7
--- NOTE | 2024-05-31 14:50 | CASEMGMT ---
ANNALISA called patient's son Javier and he said the plan will be to return to [facility] for her rehab. ANNALISA told him that patient will likely be here through the weekend as insurance will need to approve her to return. He thanked ANNALISA for the phone call. Plan: d/c back to [facility] pending insurance approval. Essence DENTON
--- NOTE | 2024-05-31 15:00 | CASEMGMT ---
Discharge Planning Updates sent to [facility] with note to start precert if needed. Princess Stone DC Planning Asst.
--- NOTE | 2024-05-31 15:27 | CASEMGMT ---
[facility] said they can take patient back whenever. SW notified physician. Plan: d/c back to [facility] under skilled level of care. Physicians will transport patient via cot. Essence DENTON
--- NOTE | 2024-05-31 15:42 | CASEMGMT ---
Lissa Alcaraz notified that pt will likely return over the weekend. Green sheet and transport form placed on chart. Princess Stone DC Planning Asst.
[2024-05-31 16:51] LABS: Bedside Glucose 128 mg/dL (74-106)
[2024-05-31 19:52] VITALS: BP 120/51; PULSE 107; RESP 18; TEMP 37.1; O2SAT 94
[2024-05-31] MEDS: Atorvastatin Calcium 20 MG Tablet PO (21:45)
[2024-05-31 21:46] VITALS: PULSE 107
[2024-05-31] MEDS: Donepezil HCl 10 MG Tablet PO (21:46)
[2024-05-31] MEDS: Metoprolol Tartrate 25 MG Tablet 12.5 MG PO (21:46)
[2024-05-31 22:35] VITALS: BMI 27.7
[2024-05-31 23:33] LABS: Bedside Glucose 126 mg/dL (74-106)
[2024-06-01] VITALS (8 sets, daily range): BP systolic 135–140; BP diastolic 52–62; PULSE 90–106; RESP 18–20; TEMP 36.6–37.5; O2SAT 87–100; BMI 27.7
[2024-06-01] MEDS: Acetaminophen 500 MG Tablet 1000 MG PO ×3 (05:30→20:13)
[2024-06-01 06:36] LABS: Absolute Lymphocyte Count 1.49 X10^3/uL (0.83-4.51); Absolute Neutrophil Count 7.2 X10^3/uL (2.0-7.7); Basophil# 0.01 X10^3/uL; Basophil% 0.1 % (0-1); Eosinophil# 0.05 X10^3/uL; Eosinophils% 0.5 % (0-5); Hematocrit 22.5 % (37-47); Hemoglobin 7.1 g/dL (12.0-15.0); Lymphocyte # 1.49 X10^3/ul (0.83-4.51); Mean Corp Hgb Conc 31.6 g/dL (32-36); Mean Corpuscular Hgb 31.1 pg (27.0-32.0); Mean Corpuscular Volume 98.7 fL (81-99); Mean Platelet Vol. 10.2 fl (6.2-12.0); Monocyte# 1.13 X10^3/uL; Monocyte% 11.4 % (0-10); NRBC Flagged by Analyzer 0 % (0-5); Neutrophil # 7.21 X10^3/uL (2.7-7.7); Neutrophil % 72.4 % (47-70); Platelet Count 135 K/mm3 (150-450); RBC Distribution Width CV 14.3 % (11.6-14.6); RBC Distribution Width SD 51.1 fl (35.1-43.9); Red Blood Count 2.28 M/mm3 (4.2-5.4)
--- NOTE | 2024-06-01 07:44 | PN.HOSP_ITS ---
Reason for Visit Reason for Visit: Diagnoses Slurred speech (05/29/24) Other specified fracture of unspecified pubis, initial encounter for closed fracture (05/29/24) Displaced intertrochanteric fracture of left femur, initial encounter for closed fracture (05/29/24) Subjective Subjective Weak. Objective Data Objective Data Vital Signs: Vital Signs Temp Pulse Resp BP Pulse Ox O2 Del Method O2 Flow Rate 36.8 C 90 20 H 140/52 H 92 Nasal Cannula 3 06/01/24 05:31 06/01/24 05:31 06/01/24 05:31 06/01/24 05:31 06/01/24 05:31 06/01/24 05:32 06/01/24 05:31 Oxygen Flow Rate (L/min) 3 Oxygen Delivery Method Nasal Cannula Weight: 77.92 kg Body Mass Index (BMI) 27.7 Intake & Output: Intake and Output for Last 24 Hours 05/30/24 05/31/24 06/01/24 23:59 23:59 23:59 Intake Total 2901.83 / 3021.83 1280.0 / 1330.0 100 / 100 Output Total 850 / 850 150 / 425 575 / 575 Balance 2051.83 / 2171.83 1130.0 / 905.0 -475 / -475 Lab / Micro Data 06/01/24 05:23 06/01/24 05:23 Labs: Laboratory Results - last 24 hr 05/31/24 06:32: Sodium 136, Potassium 4.6, Chloride 104, Carbon Dioxide 23.0, Anion Gap 9, BUN 38 H, Creatinine 1.42 H, Estim Creat Clear Calc 29.97 L, Est GFR (MDRD) Non-Af 36 L, BUN/Creatinine Ratio 26.7 H, Glucose 106 H, Calcium 8.1 05/31/24 11:43: POC Glucose 147 H 05/31/24 16:33: POC Glucose 128 H 05/31/24 23:15: POC Glucose 126 H 06/01/24 05:23: WBC 10.0, RBC 2.28 L, Hgb 7.1 L, Hct 22.5 L, MCV 98.7, MCH 31.1, MCHC 31.6 L, RDW Std Deviation 51.1 H, RDW Coeff of Dave 14.3, Plt Count 135 L, MPV 10.2, Immature Gran % (Auto) 0.600, Neut % (Auto) 72.4 H, Lymph % (Auto) 15.0 L, [place] % (Auto) 11.4 H, Eos % (Auto) 0.5, Baso % (Auto) 0.1, Absolute Neuts (auto) 7.2, Absolute Lymphs (auto) 1.49, Nucleated RBC % 0 Physical Exam Const alert and no apparent distress Constitutional Narrative: up in chair, eating breakfast. HEENT head/scalp atraumatic and moist oral mucous membranes Eyes Eyes Narrative: glasses. Assessment & Plan Assessment/Plan (1) Fracture, intertrochanteric, left femur: QUALIFIERS: Encounter type: initial encounter Fracture alignment: displaced Fracture type: closed Qualified Code(s): S72.142A - Displaced intertrochanteric fracture of left femur, initial encounter for closed fracture PLAN: s/p fall. Patient underwent a left cephalomedullary nail on 05/30 25 [place] d level 28.2. Start ergocalciferol 50k units weekly for 8 weeks. Ortho recs: DVT Prophylaxis: Eliquis to start 05/31 morning x 28 days, Perez: None, Dressing: Dry sterile dressing changes daily and as needed for saturation, X-Rays: 2 weeks postop in the office, Follow-up: 2 weeks post-operatively with me in the office (2) Pubic ramus fracture: PLAN: Non-surgical. (3) Slurred speech: PLAN: Family was most concerned because they noted a left facial droop. MRI brain negative. On my evaluation, patient does have some facial asymmetry with being more notable on the left. I suspect the patient's family had seen that when the patient's dentures were not in and noticed how prominent it was. I do not feel any additional stroke workup is necessary. Patient will not require any further neurologic workup at this time. Today, pt is listless. (4) ABLA (acute blood loss anemia): PLAN: Likely 2/2 fall and surgery. Hg went from 9.8 to 7.1. Start ferrous sulfate Monitor PLAN: Plan Chronic conditions: * HTN: amlodipine on hold * Dementia: donepezil * Depression: sertraline VTE prophylaxis: apixaban Monitor overnight. If stable with stable hemoglobin, plan will be to return to [facility] on 06/02 Charges/Coding Visit Charges Inpatient E&M: 12145 Subs Hosp L1
[2024-06-01 07:48] LABS: Anion Gap 12 (5-15); BUN 36 mg/dL (4-19); BUN/Creat Ratio 31.2 RATIO (10-20); Carbon Dioxide 20.2 mmol/L (21.0-32.0); Chloride 104 mmol/L (98-108); Creatinine, Serum 1.16 mg/dL (0.70-1.20); EST Glomerular Filtration Rate 46 (>60); Estimated Creatinine Clearance 36.68 ml/min (50-250); Glucose 115 mg/dL (70-99); Potassium 4.4 mmol/L (3.3-5.1); Sodium Level 136 mmol/L (133-145)
[2024-06-01] MEDS: Multivitamins,Therapeutic Tablet 1 TABLET PO (09:49)
[2024-06-01] MEDS: amLODIPine 5 MG Tablet PO (09:49)
[2024-06-01] MEDS: APIXABAN 2.5 MG TABLET (WCH) PO ×2 (09:49→20:12)
[2024-06-01] MEDS: Aspirin 81 MG TAB.CHEW PO (09:49)
[2024-06-01] MEDS: Sertraline 50 MG Tablet 25 MG PO (09:50)
[2024-06-01] MEDS: Metoprolol Tartrate 25 MG Tablet 12.5 MG PO ×2 (09:50→20:12)
[2024-06-01] MEDS: Calcium Carbonate 500 MG Tablet PO ×2 (09:50→11:33)
[2024-06-01] MEDS: Memantine Hydrochloride 10 MG Tablet PO ×2 (09:51→20:13)
--- NOTE | 2024-06-01 10:41 | PCM.PN.BLA ---
Progress Note Pt S&E. Pain controlled. Limited ROS from MS. Physical Exam Narrative General - A&Ox3, NAD. VSS/AF Left lower extremity -incisional dressing C/D/I. SILT Sural, Saphenous, SPN, DPN, Tibial N. distributions. DP, PT 2+. BCR. DF, PF, EHL /5. No calf TTP. Assessment & Plan Assessment/Plan (1) Fracture, intertrochanteric, left femur: QUALIFIERS: Encounter type: initial encounter Fracture type: closed Fracture alignment: displaced Qualified Code(s): S72.142A - Displaced intertrochanteric fracture of left femur, initial encounter for closed fracture PLAN: POD# 2 s/p left femur CMN - hgb down to 7.1 Consider transfusion under 7. Recommend repeating CBC tomorrow. - Mental status appears near baseline. Judicious use of narcotics. - Pain control - Medicine following for medical management - PT/OT -weightbearing as tolerated left lower extremity - DVT PPX -Eliquis 2.5 mg p.o. twice daily, CORI Meek, early mobilization - Case management - D/C planning See op note for follow-up and discharge instructions. I will sign off, please do not hessitate to call if questions/concerns arise.
[2024-06-01] MEDS: Ferrous Sulfate 325 MG Tablet PO (11:33)
[2024-06-01 12:06] LABS: Bedside Glucose 184 mg/dL (74-106)
[2024-06-01 16:30] LABS: Bedside Glucose 159 mg/dL (74-106)
[2024-06-01] MEDS: Donepezil HCl 10 MG Tablet PO (20:13)
[2024-06-01] MEDS: Atorvastatin Calcium 20 MG Tablet PO (20:14)
[2024-06-01 22:24] LABS: Bedside Glucose 123 mg/dL (74-106)
[2024-06-02] VITALS (11 sets, daily range): BP systolic 120–158; BP diastolic 62–86; PULSE 74–130; RESP 16–20; TEMP 36.7–36.9; O2SAT 93–97
[2024-06-02] MEDS: Acetaminophen 500 MG Tablet 1000 MG PO ×3 (05:05→21:53)
[2024-06-02 07:11] LABS: Absolute Neutrophil Count 5.9 X10^3/uL (2.0-7.7); Basophil# 0.02 X10^3/uL; Basophil% 0.2 % (0-1); Eosinophil# 0.14 X10^3/uL; Eosinophils% 1.7 % (0-5); Hemoglobin 6.5 g/dL (12.0-15.0); Lymphocyte % 14.6 % (19-41); Mean Corp Hgb Conc 32.5 g/dL (32-36); Mean Corpuscular Hgb 31.6 pg (27.0-32.0); Mean Corpuscular Volume 97.1 fL (81-99); Mean Platelet Vol. 10.9 fl (6.2-12.0); Monocyte# 0.94 X10^3/uL; Monocyte% 11.4 % (0-10); NRBC Flagged by Analyzer 0 % (0-5); Neutrophil # 5.87 X10^3/uL (2.7-7.7); Neutrophil % 71.5 % (47-70); Platelet Count 134 K/mm3 (150-450); RBC Distribution Width CV 13.9 % (11.6-14.6); RBC Distribution Width SD 49.6 fl (35.1-43.9); Red Blood Count 2.06 M/mm3 (4.2-5.4); White Blood Count 8.2 K/mm3 (4.4-11.0)
[2024-06-02 07:47] LABS: Anion Gap 9 (5-15); BUN 31 mg/dL (4-19); BUN/Creat Ratio 34.1 RATIO (10-20); Calcium,Total 8.3 mg/dL (7.6-11.0); Carbon Dioxide 21.6 mmol/L (21.0-32.0); Chloride 105 mmol/L (98-108); Creatinine, Serum 0.92 mg/dL (0.70-1.20); EST Glomerular Filtration Rate 61 (>60); Estimated Creatinine Clearance 46.25 ml/min (50-250); Glucose 117 mg/dL (70-99); Potassium 4.5 mmol/L (3.3-5.1); Sodium Level 136 mmol/L (133-145)
[2024-06-02] MEDS: Calcium Carbonate 500 MG Tablet PO ×3 (08:30→16:10)
[2024-06-02] MEDS: Aspirin 81 MG TAB.CHEW PO (08:30)
[2024-06-02] MEDS: Multivitamins,Therapeutic Tablet 1 TABLET PO (08:30)
[2024-06-02] MEDS: APIXABAN 2.5 MG TABLET (WCH) PO (08:31)
[2024-06-02] MEDS: Memantine Hydrochloride 10 MG Tablet PO ×2 (08:32→21:54)
[2024-06-02] MEDS: Metoprolol Tartrate 25 MG Tablet 12.5 MG PO ×2 (08:32→21:53)
[2024-06-02] MEDS: amLODIPine 5 MG Tablet PO (08:33)
[2024-06-02] MEDS: Sertraline 50 MG Tablet 25 MG PO (08:33)
--- NOTE | 2024-06-02 09:02 | PCM.PN.HOSP ---
Reason for Visit Reason for Visit: Diagnoses Acute posthemorrhagic anemia (05/29/24) Slurred speech (05/29/24) Other specified fracture of unspecified pubis, initial encounter for closed fracture (05/29/24) Displaced intertrochanteric fracture of left femur, initial encounter for closed fracture (05/29/24) Subjective Subjective No new issues. Objective Data Objective Data Vital Signs: Vital Signs Temp Pulse Resp BP Pulse Ox O2 Del Method O2 Flow Rate 36.7 C 83 18 135/62 H 95 Nasal Cannula 2 06/02/24 02:30 06/02/24 08:44 06/02/24 08:44 06/02/24 02:30 06/02/24 08:44 06/02/24 08:44 06/02/24 08:44 Oxygen Flow Rate (L/min) 2 Oxygen Delivery Method Nasal Cannula Weight: 77.92 kg Body Mass Index (BMI) 27.7 Intake & Output: Intake and Output for Last 24 Hours 05/31/24 06/01/24 06/02/24 23:59 23:59 23:59 Intake Total 1280.0 / 1330.0 200 / 200 100 / 100 Output Total 150 / 425 1225 / 1225 350 / 350 Balance 1130.0 / 905.0 -1025 / -1025 -250 / -250 Lab / Micro Data 06/02/24 04:55 06/02/24 04:55 Labs: Laboratory Results - last 24 hr 06/01/24 11:31: POC Glucose 184 H 06/01/24 16:03: POC Glucose 159 H 06/01/24 22:06: POC Glucose 123 H 06/02/24 04:55: WBC 8.2, RBC 2.06 L, Hgb 6.5 L, Hct 20.0 L, MCV 97.1, MCH 31.6, MCHC 32.5, RDW Std Deviation 49.6 H, RDW Coeff of Dave 13.9, Plt Count 134 L, MPV 10.9, Immature Gran % (Auto) 0.600, Neut % (Auto) 71.5 H, Lymph % (Auto) 14.6 L, [place] % (Auto) 11.4 H, Eos % (Auto) 1.7, Baso % (Auto) 0.2, Absolute Neuts (auto) 5.9, Absolute Lymphs (auto) 1.20, Nucleated RBC % 0, Sodium 136, Potassium 4.5, Chloride 105, Carbon Dioxide 21.6, Anion Gap 9, BUN 31 H, Creatinine 0.92, Estim Creat Clear Calc 46.25 L, Est GFR (MDRD) Non-Af 61, BUN/Creatinine Ratio 34.1 H, Glucose 117 H, Calcium 8.3 Micro: Microbiology 05/29/24 22:30 Urine Catheter - Perez Urine Culture - Final Culture exhibits no growth. Physical Exam Const alert and no apparent distress Constitutional Narrative: up in chair. no respiratory distress. no conversational dyspnea. tremulous jaw. HEENT head/scalp atraumatic and moist oral mucous membranes Resp normal respiratory effort and no retractions Extremity Extremity Narrative: LLE incision dressing intact. Neuro Sensorium / Orientation: awake and alert Assessment & Plan Assessment/Plan (1) Fracture, intertrochanteric, left femur: QUALIFIERS: Encounter type: initial encounter Fracture alignment: displaced Fracture type: closed Qualified Code(s): S72.142A - Displaced intertrochanteric fracture of left femur, initial encounter for closed fracture PLAN: s/p fall. Patient underwent a left cephalomedullary nail on 05/30 25 [place] d level 28.2. Start ergocalciferol 50k units weekly for 8 weeks. Ortho recs: DVT Prophylaxis: Eliquis to start 05/31 morning x 28 days, Perez: None, Dressing: Dry sterile dressing changes daily and as needed for saturation, X-Rays: 2 weeks postop in the office, Follow-up: 2 weeks post-operatively with me in the office (2) Pubic ramus fracture: PLAN: Non-surgical. (3) Slurred speech: PLAN: Family was most concerned because they noted a left facial droop. MRI brain negative. On my evaluation, patient does have some facial asymmetry with being more notable on the left. I suspect the patient's family had seen that when the patient's dentures were not in and noticed how prominent it was. I do not feel any additional stroke workup is necessary. Patient will not require any further neurologic workup at this time. Today, pt is listless. (4) ABLA (acute blood loss anemia): PLAN: Likely 2/2 fall and surgery. Hg went from 9.8 to 6.5 Start ferrous sulfate Hold apixaban for now. Check Hemoccult. PLAN: Plan LE edema: w/o overt CHF. Will give a 1x dose of furosemide. Chronic conditions: HTN: amlodipine on hold Dementia: donepezil Depression: sertraline VTE prophylaxis: Apixaban dc for now given the anemia. SCDs. Restart apixaban per ortho recommendations when hemoglobin is stable. Discharge to [facility] when medically stable. Charges/Coding Visit Charges Inpatient E&M: 59412 Subs Hosp L2
[2024-06-02 10:35] LABS: Bedside Glucose 111 mg/dL (74-106)
--- NOTE | 2024-06-02 11:33 | NURSING ---
awaiting saline from [facility] for blood transfusion-they were notified we are out in [place]
--- NOTE | 2024-06-02 11:52 | NURSING ---
saline bag arrived for blood administration, order sheet for blood given to clerical secretary for someone to obtain from [facility]
--- NOTE | 2024-06-02 12:42 | NURSING ---
pastorawal bracelet did not match the shantell# on bracelet on pt-unit of blood sent back to [facility] and they were called
[2024-06-02] MEDS: Ferrous Sulfate 325 MG Tablet PO (13:09)
--- NOTE | 2024-06-02 15:07 | NURSING ---
awaiting staff to get blood from [facility]
[2024-06-02] MEDS: Furosemide 40 MG/4 ML Vial IV (16:10)
[2024-06-02] MEDS: Atorvastatin Calcium 20 MG Tablet PO (21:53)
[2024-06-02] MEDS: Donepezil HCl 10 MG Tablet PO (21:54)
[2024-06-02] MEDS: 0.9% Saline Lock 10 ML Syringe IV (22:02)
[2024-06-03 02:24] VITALS: BMI 27.7
[2024-06-03 03:35] VITALS: BP 118/85; PULSE 45; RESP 14; TEMP 36.7; O2SAT 100
[2024-06-03] MEDS: Acetaminophen 500 MG Tablet 1000 MG PO (05:00)
[2024-06-03 05:40] LABS: Absolute Lymphocyte Count 1.82 X10^3/uL (0.83-4.51); Absolute Neutrophil Count 6.9 X10^3/uL (2.0-7.7); Basophil# 0.04 X10^3/uL; Basophil% 0.4 % (0-1); Eosinophil# 0.13 X10^3/uL; Eosinophils% 1.3 % (0-5); Hematocrit 25.9 % (37-47); Hemoglobin 8.6 g/dL (12.0-15.0); Lymphocyte # 1.82 X10^3/ul (0.83-4.51); Lymphocyte % 17.8 % (19-41); Mean Corp Hgb Conc 33.2 g/dL (32-36); Mean Corpuscular Hgb 30.9 pg (27.0-32.0); Mean Corpuscular Volume 93.2 fL (81-99); Mean Platelet Vol. 9.9 fl (6.2-12.0); Monocyte# 1.18 X10^3/uL; Monocyte% 11.5 % (0-10); NRBC Flagged by Analyzer 0 % (0-5); Neutrophil # 6.93 X10^3/uL (2.7-7.7); Neutrophil % 67.8 % (47-70); Platelet Count 186 K/mm3 (150-450); RBC Distribution Width CV 15.4 % (11.6-14.6); Red Blood Count 2.78 M/mm3 (4.2-5.4); White Blood Count 10.2 K/mm3 (4.4-11.0)
[2024-06-03 06:10] LABS: Anion Gap 11 (5-15); BUN 33 mg/dL (4-19); BUN/Creat Ratio 34.3 RATIO (10-20); Calcium,Total 8.9 mg/dL (7.6-11.0); Carbon Dioxide 22.9 mmol/L (21.0-32.0); Chloride 107 mmol/L (98-108); Creatinine, Serum 0.96 mg/dL (0.70-1.20); EST Glomerular Filtration Rate 58 (>60); Estimated Creatinine Clearance 44.32 ml/min (50-250); Glucose 141 mg/dL (70-99); Potassium 4.4 mmol/L (3.3-5.1); Sodium Level 141 mmol/L (133-145)
[2024-06-03 07:51] VITALS: O2SAT 96
[2024-06-03 08:55] VITALS: PULSE 105
[2024-06-03] MEDS: Calcium Carbonate 500 MG Tablet PO ×2 (08:55→11:48)
[2024-06-03] MEDS: Metoprolol Tartrate 25 MG Tablet 12.5 MG PO (08:55)
[2024-06-03] MEDS: Sertraline 50 MG Tablet 25 MG PO (08:56)
[2024-06-03] MEDS: Multivitamins,Therapeutic Tablet 1 TABLET PO (08:56)
[2024-06-03] MEDS: Aspirin 81 MG TAB.CHEW PO (08:56)
[2024-06-03] MEDS: amLODIPine 5 MG Tablet PO (08:56)
[2024-06-03] MEDS: Memantine Hydrochloride 10 MG Tablet PO (08:56)
[2024-06-03 09:00] VITALS: BP 146/84; PULSE 105; RESP 16; TEMP 35.9; O2SAT 100
--- NOTE | 2024-06-03 09:42 | CASEMGMT ---
ANNALISA sent updates to [facility]. Essence Elliott [employer]
--- NOTE | 2024-06-03 10:28 | TREXTCAR_ITS ---
Diet Diet Order/Speech Therapy: 05/30/24 16:17 Diet: Cardiac - Heart Healthy Food consistency:: Mechanical (Minced/Moist) Liquid Consistency:: Regular/Thin Type of Dietary Supplement:: Ensure Plus High Protein Diet Comments: total feed/ 1:1 supervision, meds crushed ; vanilla ensure milkshakes Routine Orders/Code Status Code Status: DNRCC-A DC O2, CPAP, BIPAP needs Home O2 Discharge instructions: No Wound(s) forehead: Wound Type: Abrasion left hip: Wound Type: Surgical Incision Left Hip (Proximal): Wound Type: Surgical Incision Left Hip (Middle): Wound Type: Surgical Incision Left Hip (Distal): Wound Type: Surgical Incision Therapies Physical Therapy: Eval and Treat Occupational Therapy: Eval and Treat Speech Therapy: Eval and Treat Problem/Diagnosis (1) Fracture, intertrochanteric, left femur: Status: Acute Code(s): S72.142A - Displaced intertrochanteric fracture of left femur, initial encounter for closed fracture (2) Pubic ramus fracture: Status: Acute Code(s): S32.599A - Other specified fracture of unspecified pubis, initial encounter for closed fracture (3) Slurred speech: Status: Acute Code(s): R47.81 - Slurred speech (4) ABLA (acute blood loss anemia): Status: Acute Code(s): D62 - Acute posthemorrhagic anemia Plan Patient is an 88-year-old lady resident of extended care facility admitted following a fall imaging studies demonstrated left intertrochanteric fracture 1. Fall with left intertrochanteric fracture, Left superior and inferior pubic rami fractures and age indeterminant T1 wedge fracture ? Patient was admitted to regular nursing floor orthopedic surgery consulted patient underwentTreatment of left intertrochanteric proximal femur fracture with cephalomedullary nail on 05/30/[address] Ortiz. Regarding her left superior and inferior pubic rami fracture conservative management perceived 2. Anemia ? Secondary to chronic disorder as well as acute blood loss anemia following surgery. Hemoglobin did drop from 9.8-6.5. Patient was transfused with 1 unit PRBC was on apixaban held for a day. Started on iron sulfate. 3,. Alterations in speech with left-sided facial droop ? Patient underwent imaging studies with MRI which is negative for acute ischemia was found to have moderate chronic deep white matter disease similar to previous study and chronic ischemic microangiopathy. 2D echo demonstrated Normal LV size. Left ventricular systolic function is normal. The left ventricular ejection fraction is 65 %. Stage 1 diastolic dysfunction. Pulmonary artery systolic pressure is 38 mmHg.. Patient was also seen in consultation by teleneuro notes and recommendations reviewed 4. Paroxysmal A-fib ? Rate controlled patient not on systemic anticoagulation due to recurrent falls 5. COPD ? Not in exacerbation did continue with home aerosol treatment 6. Essential hypertension ? Patient blood pressure remains labile 7. Dementia ? Supportive care patient follows with Dr. Sutton on an outpatient basis for this -Patient is on memantine continue however donepezil was held given patient relative bradycardia 8. Depression with anxiety Patient is on sertraline continued 9. DVT prophylaxis ? Patient had been placed on apixaban held given slight drop in hemoglobin levels resumed on discharge Time spent in the patient's overall evaluation,decision-making process, review of diagnostic data, adjustment of management, discussion with other providers, nursing nursing and ancillary staff involved in patient's care documentation 38 Minutes Allergies/Procedures Done in Hospital Allergies amoxicillin Allergy (Verified 05/30/24 12:51) Rash cefdinir Allergy (Verified 05/30/24 12:51) Rash clavulanic acid (From Augmentin) Allergy (Verified 05/30/24 12:51) Rash enoxaparin (From Lovenox) Allergy (Verified 05/30/24 12:51) Rash heparin Allergy (Verified 05/30/24 12:51) Rash levofloxacin (From Levaquin) Allergy (Verified 05/30/24 12:51) Rash Type of Care/Length of Stay Estimated LOS: More Than 30 Days Type of Care Needed: Intermediate/Assisted Living Rehab Potential: Fair Prognosis: Fair Additional Orders/Day of Discharge Day of Discharge: 06/03/24 Dietary and Speech Recommendations Dietitian Recommendations/Changes: Recommend advanced diet as tolerated to regular, no added salt. PO needs to be established. Will monitor weight trends. Discharge Plan Admission Admit Date/Time: 05/29/24 20:10 Attending Provider: Damian Suh Primary Care Provider: Levon White Consulting Providers: Saima Richardson; Reji Ortiz; Colby Moon; Kanika Payne; Mel Wiggins; Sonja Gallardo; Yesenia Cardoso; Lucien Marx; Alina Zuluaga; Donny Lester; Lukasz Thomas; Oleg Ocampo; Maru Ling; Kevin Jones; Eli Delgado; Yolanda Lara; Manuel Matos; Robert Dominguez; Akbar Grullon; Francisco Amador; Gena Justice; Marcos Montenegro; Taj Houston Discharge Orders/Prescriptions Prescriptions: New ferrous sulfate [FeroSul] 325 mg (65 mg iron) Tablet 325 mg PO DAILY@1200 Qty: 0 0RF oxycodone 5 mg Tablet 5 mg PO Q4H PRN PRN (Reason: pain) 3 Days Qty: 14 0RF metoprolol tartrate 25 mg Tablet 12.5 mg PO BID Qty: 0 0RF pantoprazole [Protonix] 40 mg tablet,delayed release (DR/EC) 40 mg PO DAILY Qty: 60 0RF Eliquis 2.5 mg tablet 2.5 mg PO BID 30 Days Qty: 60 0RF Continued donepezil 10 mg tablet 10 mg PO QHS Qty: 90 3RF sertraline [Zoloft] 25 mg tablet 25 mg PO DAILY Qty: 90 3RF trimethoprim 100 mg tablet 100 mg PO QHS d-mannose 500 mg capsule 1,000 mg PO BID cholecalciferol (vitamin D3) 25 mcg (1,000 unit) tablet 25 mcg PO DAILY acetaminophen 500 mg tablet 1,000 mg PO TID atorvastatin 20 mg tablet 20 mg PO QHS memantine 10 mg tablet 10 mg PO BID polyethylene glycol 3350 [Miralax] 17 gram/dose powder 17 g PO BID PRN (Reason: constipation) multivitamin Tablet 1 tab PO DAILY amlodipine 5 mg tablet 5 mg PO DAILY Qty: 90 3RF aspirin 81 MG tablet 81 mg PO DAILY albuterol sulfate 2.5 mg /3 mL (0.083 %) Solution For Nebulization 2.5 mg inhalation Q2H PRN PRN (Reason: SOB/Wheezing) Qty: 0 0RF Discontinued doxycycline hyclate 100 mg tablet 100 mg PO BID Rx Instructions: end date is 05/30/24; unknown if pt. has any other doses left to take on 05/30 metoprolol tartrate 25 mg tablet 25 mg PO BID Qty: 180 3RF Referrals / Follow Up: Levon White MD [Primary Care Provider] - Reji Ortiz DO [Med Staff - Active Staff] - Within 2 Weeks Disposition Disposition (needs filled in before D/C Order can be placed): Care Home Facility (1) Fracture, intertrochanteric, left femur Qualifiers: Encounter type: initial encounter Fracture type: closed Fracture alignment: displaced Qualified Code(s): S72.142A - Displaced intertrochanteric fracture of left femur, initial encounter for closed fracture
--- NOTE | 2024-06-03 10:42 | DS.PCM_ITS ---
Providers Date of Admission: 05/29/24 Date of Discharge: 06/03/24 Primary Care Physician: Dr. Levon White MD Consultations 05/29/24 20:10 Consult: Orthopedics Routine Consulting Provider: Reji Ortiz Reason for Consult: intertroch fracture on L, tx from [facility] EMERGENT Consult: No MD Notified: Yes Date Notified: 05/29/24 Time Notified: 20:49 Method of Notification: Text 05/29/24 20:12 Consult: Tele-Neurology Routine Consulting Provider: [facility] Reason for Consult: Slurred speech, facial droop, unknown last known well EMERGENT Consult: No Notified: Yes Date Notified: 05/29/24 Time Notified: 21:09 Method of Notification: Answering Service Nursing Unit Staff Notify [facility] of Tele-Neurology Consult: Yes Reason For Visit: LEFT INTERTROCHANTERIC FRACTURE Diagnosis Discharge Diagnosis (1) Fracture, intertrochanteric, left femur: Status: Acute Code(s): S72.142A - Displaced intertrochanteric fracture of left femur, initial encounter for closed fracture Qualifiers: Encounter type: initial encounter Fracture type: closed Fracture alignment: displaced Qualified Code(s): S72.142A - Displaced intertrochanteric fracture of left femur, initial encounter for closed fracture (2) Pubic ramus fracture: Status: Acute Code(s): S32.599A - Other specified fracture of unspecified pubis, initial encounter for closed fracture (3) Slurred speech: Status: Acute Code(s): R47.81 - Slurred speech (4) ABLA (acute blood loss anemia): Status: Acute Code(s): D62 - Acute posthemorrhagic anemia Plan Patient is an 88-year-old lady resident of extended care facility admitted following a fall imaging studies demonstrated left intertrochanteric fracture 1. Fall with left intertrochanteric fracture, Left superior and inferior pubic rami fractures and age indeterminant T1 wedge fracture ? Patient was admitted to regular nursing floor orthopedic surgery consulted patient underwentTreatment of left intertrochanteric proximal femur fracture with cephalomedullary nail on 05/30/[address] Ortiz. Regarding her left superior and inferior pubic rami fracture conservative management perceived 2. Anemia ? Secondary to chronic disorder as well as acute blood loss anemia following surgery. Hemoglobin did drop from 9.8-6.5. Patient was transfused with 1 unit PRBC was on apixaban held for a day. Started on iron sulfate. 3,. Alterations in speech with left-sided facial droop ? Patient underwent imaging studies with MRI which is negative for acute ischemia was found to have moderate chronic deep white matter disease similar to previous study and chronic ischemic microangiopathy. 2D echo demonstrated N ormal LV size. Left ventricular systolic function is normal. The left ventricular ejection fraction is 65 %. Stage 1 diastolic dysfunction. Pulmonary artery systolic pressure is 38 mmHg.. Patient was also seen in consultation by teleneuro notes and recommendations reviewed 4. Paroxysmal A-fib ? Rate controlled patient not on systemic anticoagulation due to recurrent falls 5. COPD ? Not in exacerbation did continue with home aerosol treatment 6. Essential hypertension ? Patient blood pressure remains labile 7. Dementia ? Supportive care patient follows with Dr. Sutton on an outpatient basis for this -Patient is on memantine continue however donepezil was held given patient relative bradycardia 8. Depression with anxiety Patient is on sertraline continued 9. DVT prophylaxis ? Patient had been placed on apixaban held given slight drop in hemoglobin levels resumed on discharge Time spent in the patient's overall evaluation,decision-making process, review of diagnostic data, adjustment of management, discussion with other providers, nursing nursing and ancillary staff involved in patient's care documentation 38 Minutes Medications at Discharge Home Medications aspirin 81 mg tablet,delayed release 81 mg PO DAILY [facility] 04/12/18 donepezil 10 mg tablet 10 mg PO QHS dementia #90 tabs 04/15/22 sertraline 25 mg tablet (Zoloft) 25 mg PO DAILY #90 tabs 04/15/22 albuterol sulfate 2.5 mg/3 mL (0.083 %) solution for nebulization 2.5 mg (3 mL) inhalation Q2H PRN PRN SOB/Wheezing #0 mL 11/21/22 trimethoprim 100 mg tablet 100 mg PO QHS UTI 12/21/22 cholecalciferol (vitamin D3) 25 mcg (1,000 unit) tablet 25 mcg PO DAILY dietary supplement 03/07/23 d-mannose 500 mg capsule 1,000 mg PO BID bladder 03/07/23 acetaminophen 500 mg tablet 1,000 mg PO TID pain 09/01/23 amlodipine 5 mg tablet 5 mg PO DAILY hypertension #90 tabs 09/01/23 memantine 10 mg tablet 10 mg PO BID dementia 09/01/23 multivitamin 1 tab PO DAILY dietary supplement 09/01/23 polyethylene glycol 3350 17 gram/dose oral powder (Miralax) 17 g PO BID PRN constipation 09/01/23 atorvastatin 20 mg tablet 20 mg PO QHS hyperlipidemia 03/11/24 apixaban 2.5 mg tablet (Eliquis) 2.5 mg PO BID 30 days #60 tabs 06/03/24 ferrous sulfate 325 mg (65 mg iron) tablet (FeroSul) 325 mg PO DAILY@1200 #0 tabs 06/03/24 metoprolol tartrate 25 mg tablet 12.5 mg (1/2 x 25 mg) PO BID #0 tabs 06/03/24 oxycodone 5 mg tablet 5 mg PO Q4H PRN PRN pain 3 days #14 tabs 06/03/24 pantoprazole 40 mg tablet,delayed release (Protonix) 40 mg PO DAILY #60 tabs 06/03/24 Physical Exam Narrative GENERAL: cooperative HEENT: Atraumatic; normocephalic EYES; Anicteric, Normal Conjunctiva NECK; supple, normal thyroid, RESPIRATORY: Diminished to auscultation CARDIOVASCULAR: Regular S1 S2, GI: soft, normoactive bowel sounds, : No Renal angle tenderness; EXTREMITIES: +1 edema, no clubbing, MUSCULOSKELETAL: no muscle wasting NEURO: Awake; no lateralizing signs. SKIN: No Rash PSYCH; Flat affect Weight / BMI Weight Weight: 77.92 kg Body Mass Index (BMI) 27.7 ABG / Lab / Microbiology Data 06/03/24 05:19 06/03/24 05:19 Laboratory: Laboratory Results - last 24 hr 06/02/24 01:11: Blood Type O NEGATIVE, Antibody Screen NEGATIVE, Crossmatch See Detail 06/02/24 09:36: Blood Type Cancelled, Antibody Screen Cancelled, Crossmatch See Detail 06/03/24 05:19: WBC 10.2, RBC 2.78 L, Hgb 8.6 L, Hct 25.9 L, MCV 93.2, MCH 30.9, MCHC 33.2, RDW Std Deviation 53.0 H, RDW Coeff of Dave 15.4 H, Plt Count 186, MPV 9.9, Immature Gran % (Auto) 1.200 H, Neut % (Auto) 67.8, Lymph % (Auto) 17.8 L, [place] % (Auto) 11.5 H, Eos % (Auto) 1.3, Baso % (Auto) 0.4, Absolute Neuts (auto) 6.9, Absolute Lymphs (auto) 1.82, Nucleated RBC % 0, Sodium 141, Potassium 4.4, Chloride 107, Carbon Dioxide 22.9, Anion Gap 11, BUN 33 H, Creatinine 0.96, E stim Creat Clear Calc 44.32 L, Est GFR (MDRD) Non-Af 58 L, BUN/Creatinine Ratio 34.3 H, Glucose 141 H, Calcium 8.9 Microbiology: Microbiology 05/29/24 22:30 Urine Catheter - Perez Urine Culture - Final Culture exhibits no growth. D/C Instructions Discharge Diet: No restrictions Discharge Activity: Return to Normal Activity Call your doctor if you observe: Fever of 101 or Higher, Shortness of breath, Fainting spells and Chest pain DC O2, CPAP, BIPAP Needs Home O2 Discharge instructions: No Meaningful Use Info Meaningful Use Meaningful Use Diagnoses (Choose all that apply): None applicable Ischemic Stroke Statin Dosing Therapy Reference: STATIN DOSE THERAPY REFERENCE: * Patients > 75 years receive moderate or high dose statin therapy. * Patients 75 years or YOUNGER should receive HIGH intensity statin dose unless contraindicated. You will be required to document reason for non-treatment if statin daily dose does not meet guidelines. HIGH DOSE STATIN THERAPY DAILY Atorvastatin > than or = to 40 mg Rosuvastatin > than or = to 20 mg Amlodipine + Atorvastatin > than or = to 2.5/40 mg Ezetimibe + Simvastatin 10/80 mg Simvastatin 80mg Discharge Plan Admission Admit Date/Time: 05/29/24 20:10 Attending Provider: Damian Suh Primary Care Provider: Levon White Consulting Providers: Saima Richardson; Reji Ortiz; Colby Moon; Kanika Payne; Mel Wiggins; Sonja Gallardo; Yesenia Cardoso; Lucien Marx; Alina Zuluaga; Donny Lester; Lukasz Thomas; Oleg Ocampo; Maru Ling; Kevin Jones; Eli Delgado; Yolanda Lara; Manuel Matos; Robert Dominguez; Akbar Grullon; Francisco Amador; Gena Justice; Marcos Montenegro; Taj Houston Discharge Orders/Prescriptions Prescriptions: New ferrous sulfate [FeroSul] 325 mg (65 mg iron) Tablet 325 mg PO DAILY@1200 Qty: 0 0RF oxycodone 5 mg Tablet 5 mg PO Q4H PRN PRN (Reason: pain) 3 Days Qty: 14 0RF metoprolol tartrate 25 mg Tablet 12.5 mg PO BID Qty: 0 0RF pantoprazole [Protonix] 40 mg tablet,delayed release (DR/EC) 40 mg PO DAILY Qty: 60 0RF Eliquis 2.5 mg tablet 2.5 mg PO BID 30 Days Qty: 60 0RF Continued donepezil 10 mg tablet 10 mg PO QHS Qty: 90 3RF sertraline [Zoloft] 25 mg tablet 25 mg PO DAILY Qty: 90 3RF trimethoprim 100 mg tablet 100 mg PO QHS d-mannose 500 mg capsule 1,000 mg PO BID cholecalciferol (vitamin D3) 25 mcg (1,000 unit) tablet 25 mcg PO DAILY acetaminophen 500 mg tablet 1,000 mg PO TID atorvastatin 20 mg tablet 20 mg PO QHS memantine 10 mg tablet 10 mg PO BID polyethylene glycol 3350 [Miralax] 17 gram/dose powder 17 g PO BID PRN (Reason: constipation) multivitamin Tablet 1 tab PO DAILY amlodipine 5 mg tablet 5 mg PO DAILY Qty: 90 3RF aspirin 81 MG tablet 81 mg PO DAILY albuterol sulfate 2.5 mg /3 mL (0.083 %) Solution For Nebulization 2.5 mg inhalation Q2H PRN PRN (Reason: SOB/Wheezing) Qty: 0 0RF Discontinued doxycycline hyclate 100 mg tablet 100 mg PO BID Rx Instructions: end date is 05/30/24; unknown if pt. has any other doses left to take on 05/30 metoprolol tartrate 25 mg tablet 25 mg PO BID Qty: 180 3RF Referrals / Follow Up: Levon White MD [Primary Care Provider] - Reji Ortiz DO [Med Staff - Active Staff] - Within 2 Weeks Disposition Disposition (needs filled in before D/C Order can be placed): [facility] Facility Charges/Coding Visit Charges Inpatient E&M: 77907 Disch Hosp >30min
--- NOTE | 2024-06-03 11:19 | CASEMGMT ---
Patient is ready for discharge back to [facility] today. ANNALISA called [facility] and arranged for a 2p burr picker. ANNALISA sent d/c orders, med list, and burr picker time to [facility] ANNALISA called patient's son Javier and left him a voice mail letting him know that patient will be discharged back to [facility] today and she will get picked up at 2p. Plan: d/c back to [facility] under skilled level of care. [facility] will transport patient via cot. Essence DENTON
[2024-06-03] MEDS: Ferrous Sulfate 325 MG Tablet PO (11:49)
--- NOTE | 2024-06-03 11:54 | PHA.DC.MR.R ---
Pharmacy [place] Med Reconciliation Pharmacy Service has performed discharge medication reconciliation for this patient. The patient's discharge medication list was reviewed for discrepancies and discrepancies were resolved. Medications at Discharge Home Medications aspirin 81 mg tablet,delayed release 81 mg PO DAILY [facility] 04/12/18 donepezil 10 mg tablet 10 mg PO QHS dementia #90 tabs 04/15/22 sertraline 25 mg tablet (Zoloft) 25 mg PO DAILY #90 tabs 04/15/22 albuterol sulfate 2.5 mg/3 mL (0.083 %) solution for nebulization 2.5 mg (3 mL) inhalation Q2H PRN PRN SOB/Wheezing #0 mL 11/21/22 d-mannose 500 mg capsule 1,000 mg PO BID bladder 03/07/23 acetaminophen 500 mg tablet 1,000 mg PO TID pain 09/01/23 amlodipine 5 mg tablet 5 mg PO DAILY hypertension #90 tabs 09/01/23 memantine 10 mg tablet 10 mg PO BID dementia 09/01/23 multivitamin 1 tab PO DAILY dietary supplement 09/01/23 polyethylene glycol 3350 17 gram/dose oral powder (Miralax) 17 g PO BID PRN constipation 09/01/23 atorvastatin 20 mg tablet 20 mg PO QHS hyperlipidemia 03/11/24 apixaban 2.5 mg tablet (Eliquis) 2.5 mg PO BID 30 days #60 tabs 06/03/24 ergocalciferol (vitamin D2) 1,250 mcg (50,000 unit) capsule (Vitamin D2) 1,250 mcg PO Q7D #0 caps 06/03/24 ferrous sulfate 325 mg (65 mg iron) tablet (FeroSul) 325 mg PO DAILY@1200 #0 tabs 06/03/24 melatonin 3 mg tablet 3 mg PO QHS PRN PRN Insomnia #0 tabs 06/03/24 metoprolol tartrate 25 mg tablet 12.5 mg (1/2 x 25 mg) PO BID #0 tabs 06/03/24 oxycodone 5 mg tablet 5 mg PO Q4H PRN PRN pain 3 days #14 tabs 06/03/24 pantoprazole 40 mg tablet,delayed release (Protonix) 40 mg PO DAILY #60 tabs 06/03/24 sennosides 8.6 mg-docusate sodium 50 mg tablet (Stimulant Laxative Plus) 2 tab PO BID PRN PRN Constipation #0 tabs 06/03/24
[2024-06-03 12:15] VITALS: BMI 27.7
[2024-06-03 12:40] VITALS: BP 131/68; PULSE 86; RESP 16; TEMP 37.4; O2SAT 97
--- NOTE | 2024-06-03 12:45 | NURSING ---
Attempted to call report to [facility] with no response at this time. Will try again prior to patient tack picker time.
--- NOTE | 2024-06-03 13:19 | NURSING ---
Second attempt at this time to call [facility] to give report on patient without success.
== END 2024-06-03 14:15 | disposition skilled nursing facility (03) | DRG 956 ==
PROVIDERS: Student in an Organized Health Care Education/Training Program; Admitting Provider Internal Medicine; PCP Internal Medicine; Visit Provider Internal Medicine
PROC: 0QS706Z Reposition Left Upper Femur with Intramedullary Internal Fixation Device, Open Approach (ICD-10-PCS; CPT 27245; principal; 2024-05-30 11:00)
DX: S72.142A Displaced intertrochanteric fracture of left femur, initial encounter for closed fracture (principal); S32.592A Other specified fracture of left pubis, initial encounter for closed fracture; D62 Acute posthemorrhagic anemia; F02.80 Dementia in other diseases classified elsewhere, unspecified severity, without behavioral disturbance, psychotic disturbance, mood disturbance, and anxiety; J44.9 Chronic obstructive pulmonary disease, unspecified; I10 Essential (primary) hypertension; I48.0 Paroxysmal atrial fibrillation; W19.XXXA Unspecified fall, initial encounter; F41.8 Other specified anxiety disorders; Z86.16 Personal history of COVID-19; Z79.01 Long term (current) use of anticoagulants; Z79.82 Long term (current) use of aspirin; Z79.899 Other long term (current) drug therapy; R47.81 Slurred speech; R90.82 White matter disease, unspecified; R29.810 Facial weakness
CPT/HCPCS: 36415; 70544; 70551; 73502; 76000; 80048; 80061; 81001; 82306; 82962; 83036; 85025; 85610; 86850; 86900; 86901; 87086; 92610; 93005; 93306; 93880; 94762; 97112; 97163; 97166; 97530; 97535; C1713; C1776; P9016; A4216; J1940; J2405

== ENCOUNTER 2024-06-27 18:55 | Emergency (ER) | payer MEDICARE, MEDICAID, SELFPAY ==
[2024-06-27 18:56] VITALS: BP 144/64; PULSE 84; RESP 18; TEMP 36.6; O2SAT 97; BMI 31.0
--- NOTE | 2024-06-27 19:25 | ED.VIS.LOWEX ---
HPI History of Present Illness Chief Complaint: Lower Extremity Injury Detail of Chief Complaint: DVT Informant: patient Narrative Narrative: Patient presents emergency department complaint of a DVT in the right leg. Patient apparently had an ultrasound performed of the both lower extremities as an outpatient and noted that patient had right proximal DVT. Patient currently on Xarelto 2.5 mg twice daily prophylactically after repair of her left hip fracture. Patient denies chest pain or shortness of breath. [facility] Medical History (Updated 06/27/24 @ 19:[address] 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 Obesity Paroxysmal atrial fibrillation Essential (primary) hypertension Atrial fibrillation with RVR (04/13/18) Lung nodule seen on imaging study Basal cell carcinoma Home Medications ?Medication ?Instructions ?Recorded ?Last Taken ?Type aspirin 81 mg tablet,delayed 81 mg PO DAILY Heart Health 04/12/18 05/29/24 History release donepezil 10 mg tablet 10 mg PO QHS dementia #90 tabs 04/15/22 05/29/24 Rx sertraline 25 mg tablet (Zoloft) 25 mg PO DAILY #90 tabs 04/15/22 05/29/24 Rx albuterol sulfate 2.5 mg/3 mL 2.5 mg (3 mL) inhalation Q2H PRN 11/21/22 Unknown Rx (0.083 %) solution for nebulization PRN SOB/Wheezing #0 mL d-mannose 500 mg capsule 1,000 mg PO BID bladder 03/07/23 05/29/24 History acetaminophen 500 mg tablet 1,000 mg PO TID pain 09/01/23 05/29/24 History amlodipine 5 mg tablet 5 mg PO DAILY hypertension #90 tabs 09/01/23 05/29/24 Rx memantine 10 mg tablet 10 mg PO BID dementia 09/01/23 05/29/24 History multivitamin 1 tab PO DAILY dietary supplement 09/01/23 05/29/24 History polyethylene glycol 3350 17 17 g PO BID PRN constipation 09/01/23 Unknown History gram/dose oral powder (Miralax) atorvastatin 20 mg tablet 20 mg PO QHS hyperlipidemia 03/11/24 05/29/24 History apixaban 2.5 mg tablet (Eliquis) 2.5 mg PO BID 30 days #60 tabs 06/03/24 Unknown Rx ergocalciferol (vitamin D2) 1,250 1,250 mcg PO Q7D #0 caps 06/03/24 Unknown Rx mcg (50,000 unit) capsule (Vitamin D2) ferrous sulfate 325 mg (65 mg 325 mg PO DAILY@1200 #0 tabs 06/03/24 Unknown Rx iron) tablet (FeroSul) melatonin 3 mg tablet 3 mg PO QHS PRN PRN Insomnia #0 06/03/24 Unknown Rx tabs metoprolol tartrate 25 mg tablet 12.5 mg (1/2 x 25 mg) PO BID #0 06/03/24 Unknown Rx tabs pantoprazole 40 mg tablet,delayed 40 mg PO DAILY #60 tabs 06/03/24 Unknown Rx release (Protonix) sennosides 8.6 mg-docusate sodium 2 tab PO BID PRN PRN Constipation 06/03/24 Unknown Rx 50 mg tablet (Stimulant Laxative #0 tabs Plus) Xarelto 20 mg tablet (rivaroxaban) 20 mg PO DAILY #30 tabs 06/27/24 Unknown Rx apixaban 5 mg tablet (Eliquis) 5 mg PO BID 06/27/24 Unknown History furosemide 20 mg tablet (Lasix) 20 mg PO DAILY 06/27/24 Unknown History rivaroxaban 15 mg tablet (Xarelto) 15 mg PO BID #42 TABLETS 06/27/24 Unknown Rx Allergy/AdvReac Type Severity Reaction Status Date / Time amoxicillin Allergy Rash Verified 06/27/24 19:01 cefdinir Allergy Rash Verified 06/27/24 19:01 clavulanic acid (From Allergy Rash Verified 06/27/24 19:01 Augmentin) enoxaparin (From Lovenox) Allergy Rash Verified 06/27/24 19:01 heparin Allergy Rash Verified 06/27/24 19:01 levofloxacin (From Levaquin) Allergy Rash Verified 06/27/24 19:01 Family History Father Cancer Mother Hypertension Dementia Surgical History H/O basal cell carcinoma excision History of vein stripping Social History housing: custodial Smoking Status: Never smoker alcohol intake: never substance use type: does not use ROS ROS ED ROS Narrative Right leg DVT Review of Systems ROS Unobtainable: other Constitutional Constitutional ED: Reports lethargy; Denies chills, fever(s), sweats or weight loss Eyes Eyes: Denies blurry vision, change in vision or diplopia ENT ENT ED: Denies rhinorrhea or sore throat Cardiovascular Cardiovascular: Denies chest pain, orthopnea or racing heartbeat Respiratory/Chest Respiratory/Chest: Denies cough, dyspnea, dyspnea on exertion, orthopnea or sputum Gastrointestinal Gastrointestinal: Denies abdominal pain, diarrhea, nausea or vomiting Genitourinary Genitourinary ED: Denies dysuria, hematuria or urinary frequency Musculoskeletal Musculoskeletal: Denies arthralgias, back pain, myalgias or neck pain Integumentary Denies abscess, Abrasions or rash Neurologic Neurologic: Denies headache(s) or weakness Psychiatric Psychiatric: Denies anxiety, depression or suicidal thoughts Endocrine Endocrinology: Denies polydipsia, polyphagia or polyuria Hematologic/Lymphatic Hematologic/Lymphatic: Denies easy bleeding, easy bruising or lymphadenopathy Allergic/Immunologic Allergic/Immunologic ED: Denies mouth swelling, tongue swelling or urticaria EXAM Physical Exam Const Vital Signs: 06/27/24 18:56 Temperature 97.9 F Temperature Source Temporal Pulse Rate 84 Respiratory Rate 18 Blood Pressure 144/64 H Blood Pressure Mean 90 Pulse Ox 97 Oxygen Delivery Method Nasal Cannula Oxygen Flow Rate (L/min) 1 Positive well nourished and well developed General Appearance ED: well developed and NAD HEENT Reports TM's clear and moist mucous membranes normocephalic and atraumatic; Negative for trauma or tenderness Tympanic Membrane ED: Yes TM's clear Eyes PERRL and EOMs intact bilaterally General Eye ED: Negative for pale conjunctiva or scleral icterus Neck no lymphadenopathy, supple and no JVD General: Negative for tenderness Chest Wall inspection of chest normal and palpation of chest normal Chest: Negative for tenderness Resp normal respiratory effort and clear to auscultation bilaterally Effort and Inspection: Negative for respiratory distress or pain with movement Auscultation: Negative for rhonchi, wheezes or diminished lung sounds Cardio regular rate, regular rhythm, S1 normal heart sound, S2 normal heart sound and no murmurs Peripheral Pulses: pulses 2+ throughout GI normal to inspection, nondistended, normoactive bowel sounds, soft to palpation, non-tender, non-distended and no masses Back/Spine no CVA tenderness and no thoracic nor lumbar tenderness Extremity Extremity Narrative: Right leg-patient does not have any pain on palpation of the thigh. There is no significant swelling to the right leg. There is some edema of the left lower leg. No ropes or cords palpated. Normal femoral, popliteal, dorsal pedal, and posterior tibial pulses bilaterally. General Extremety ED: Negative for edema General Extremity: Negative for edema Neuro oriented x3, CN's II-XII intact bilaterally, no sensory deficits noted and gait normal Sensorium / Orientation: awake, alert, oriented to person, oriented to place and oriented to time Motor Exam: strength 5/5 throughout and strength abnormal Psych mental status grossly normal Skin no rashes or lesions noted and no wounds MDM MDM MDM Narrative Medical decision making narrative: Patient presents with DVT in right leg on Xarelto prophylactic dose 2.5 mg twice daily. I did discuss case with Dr. Chase who is the vascular surgeon on-call today. He recommended switching patient over to Xarelto as patient lists heparin and Lovenox as his allergies. Recommended Xarelto 15 mg twice daily for 21 days and 20 mg a day afterwards. She is to follow-up with his office within the next week. Discharge Plan Triage Chief Complaint: Lower Extremity Injury ED Provider: Von Lindquist Dx/Rx/DC Orders Clinical Impression: DVT (deep venous thrombosis) Instructions: DVT Dc Prescriptions: New Xarelto 15 mg tablet 15 mg PO BID Qty: 42 0RF Xarelto 20 mg tablet 20 mg PO DAILY Qty: 30 0RF Rx Instructions: must administer with evening meal No Action donepezil 10 mg tablet 10 mg PO QHS Qty: 90 3RF sertraline [Zoloft] 25 mg tablet 25 mg PO DAILY Qty: 90 3RF d-mannose 500 mg capsule 1,000 mg PO BID acetaminophen 500 mg tablet 1,000 mg PO TID atorvastatin 20 mg tablet 20 mg PO QHS memantine 10 mg tablet 10 mg PO BID polyethylene glycol 3350 [Miralax] 17 gram/dose powder 17 g PO BID PRN (Reason: constipation) multivitamin Tablet 1 tab PO DAILY amlodipine 5 mg tablet 5 mg PO DAILY Qty: 90 3RF aspirin 81 MG tablet 81 mg PO DAILY albuterol sulfate 2.5 mg /3 mL (0.083 %) Solution For Nebulization 2.5 mg inhalation Q2H PRN PRN (Reason: SOB/Wheezing) Qty: 0 0RF ferrous sulfate [FeroSul] 325 mg (65 mg iron) Tablet 325 mg PO DAILY@1200 Qty: 0 0RF metoprolol tartrate 25 mg Tablet 12.5 mg PO BID Qty: 0 0RF pantoprazole [Protonix] 40 mg tablet,delayed release (DR/EC) 40 mg PO DAILY Qty: 60 0RF Eliquis 2.5 mg tablet 2.5 mg PO BID 30 Days Qty: 60 0RF sennosides-docusate sodium [Stimulant Laxative Plus] 8.6-50 mg Tablet 2 tab PO BID PRN PRN (Reason: Constipation) Qty: 0 0RF melatonin 3 mg Tablet 3 mg PO QHS PRN PRN (Reason: Insomnia) Qty: 0 0RF ergocalciferol (vitamin D2) [Vitamin D2] 1,250 mcg (50,000 unit) Capsule 1,250 mcg PO Q7D Qty: 0 0RF Eliquis 5 mg tablet 5 mg PO BID furosemide [Lasix] 20 mg tablet 20 mg PO DAILY Rx Instructions: until 07-01-24 Primary Care Provider: Omi Ghosh Referrals: Levon White MD [Med Staff - Active Staff] - Taj Chase MD [Med Staff - Active Staff] - 5-7 Days Print Language: Frisian Disposition Disposition: Home, Self Care
[2024-06-27] MEDS: Rivaroxaban 15 MG Tablet PO (19:34)
--- NOTE | 2024-06-27 19:36 | CM.ED ---
Social Work SW was able to verify that patient has HPOA and LW on file with [facility]. Patient verified that son is listed as HPOA. No further needs identified at this time. Guillermina Humphrey, GATEMAN, DRAMATIC COACH
[2024-06-27 19:49] VITALS: BP 153/90; PULSE 79; RESP 18; TEMP 36.7; O2SAT 96
[2024-06-27 20:56] VITALS: RESP 18
[2024-06-27 22:00] VITALS: BP 149/62; PULSE 80; RESP 18; O2SAT 91
== END 2024-06-27 23:05 | disposition home or self-care (01) ==
PROVIDERS: Emergency Provider Emergency Medicine; PCP Family Medicine; Visit Provider Emergency Medicine
DX: I82.4Y1 Acute embolism and thrombosis of unspecified deep veins of right proximal lower extremity (principal); J44.9 Chronic obstructive pulmonary disease, unspecified; I48.0 Paroxysmal atrial fibrillation; I10 Essential (primary) hypertension; Z79.01 Long term (current) use of anticoagulants
CPT/HCPCS: 99284

== ENCOUNTER → 2024-07-04 | Outpatient (CLI) | payer MEDICARE, MEDICAID, SELFPAY ==
[2024-07-04 13:15] LABS: Absolute Lymphocyte Count 1.31 X10^3/uL (0.83-4.51); Absolute Neutrophil Count 5.7 X10^3/uL (2.0-7.7); Basophil# 0.04 X10^3/uL; Basophil% 0.5 % (0-1); Eosinophil# 0.18 X10^3/uL; Eosinophils% 2.3 % (0-5); Hematocrit 32.8 % (37-47); Hemoglobin 9.8 g/dL (12.0-15.0); Lymphocyte # 1.31 X10^3/ul (0.83-4.51); Lymphocyte % 16.4 % (19-41); Mean Corp Hgb Conc 29.9 g/dL (32-36); Mean Corpuscular Hgb 30.2 pg (27.0-32.0); Mean Corpuscular Volume 101.2 fL (81-99); Mean Platelet Vol. 9.9 fl (6.2-12.0); Monocyte# 0.73 X10^3/uL; Monocyte% 9.1 % (0-10); NRBC Flagged by Analyzer 0 % (0-5); Neutrophil # 5.71 X10^3/uL (2.7-7.7); Neutrophil % 71.3 % (47-70); Platelet Count 271 K/mm3 (150-450); RBC Distribution Width SD 59.8 fl (35.1-43.9); Red Blood Count 3.24 M/mm3 (4.2-5.4)
[2024-07-04 14:23] LABS: Anion Gap 9 (5-15); BUN 24 mg/dL (4-19); BUN/Creat Ratio 31.1 RATIO (10-20); Carbon Dioxide 25.5 mmol/L (21.0-32.0); Chloride 105 mmol/L (98-108); Creatinine, Serum 0.77 mg/dL (0.70-1.20); EST Glomerular Filtration Rate 75 (>60); Glucose 119 mg/dL (70-99); Potassium 3.8 mmol/L (3.3-5.1); Pro- Brain NATRIURETIC PEPTIDE 717 pg/mL (<=1800); Sodium Level 140 mmol/L (133-145)
== END | disposition home or self-care (01) ==
LOC: LAB 11:40
PROVIDERS: PCP Family Medicine; Referring Provider Nurse Practitioner Gerontology; Visit Provider Nurse Practitioner Gerontology
DX: I50.9 Heart failure, unspecified (principal)
CPT/HCPCS: 36415; 80048; 83880; 85025

== ENCOUNTER → 2024-10-14 | Outpatient (CLI) | payer MEDICARE, MEDICAID, SELFPAY ==
--- NOTE | 2024-10-14 13:18 | VDLE_ITS ---
Reason For Study Reason For Study: Swelling RIGHT LEFT GSV is normal. CFV is compressible, spontaneous, phasic, competent, CFV is compressible, spontaneous, phasic, competent and demonstrates normal augmentation. and demonstrates normal augmentation. Acute deep vein thrombosis is noted in the FV, Pop V, Gastroc V, PTV, and Soleus V. It is dilated and NONCOMPRESSIBLE. RT PerV is compressible. Procedure This is a venous duplex using B-mode, color flow and spectral Doppler. Exam performed in department. A preliminary report was called and/or faxed to ALBERTO Parikh. VL/Venous Duplex US, Unilateral Interpretation Summary Acute deep vein thrombosis noted in the right femoral vein, popliteal vein, gas trocnemius vein, posterior tibial vein, soleus vein. Ordering Physician: Sonja Abarca Referring Physician: Sonja Abarca Performed By: Raissa Savage RVT
--- NOTE | 2024-10-14 13:18 | VDLE_ITS ---
Reason For Study Reason For Study: Swelling RIGHT LEFT GSV is normal. CFV is compressible, spontaneous, phasic, competent, CFV is compressible, spontaneous, phasic, competent and demonstrates normal augmentation. and demonstrates normal augmentation. Acute deep vein thrombosis is noted in the FV, Pop V, Gastroc V, PTV, and Soleus V. It is dilated and NONCOMPRESSIBLE. RT PerV is compressible. Procedure This is a venous duplex using B-mode, color flow and spectral Doppler. Exam performed in department. A preliminary report was called and/or faxed to ALBERTO Parikh. VL/Venous Duplex US, Unilateral Interpretation Summary Acute deep vein thrombosis noted in the right femoral vein, popliteal vein, gas trocnemius vein, posterior tibial vein, soleus vein. Ordering Physician: Sonja Abarca Referring Physician: Sonja Abarca Performed By: Raissa Savage RVT
== END | disposition home or self-care (01) ==
PROVIDERS: PCP Family Medicine; Referring Provider Physician Assistant; Visit Provider Physician Assistant
DX: R60.0 Localized edema (principal); I82.409 Acute embolism and thrombosis of unspecified deep veins of unspecified lower extremity
CPT/HCPCS: 93971